=== PATIENT | male | born 1945 | race Caucasian/White ===

== ENCOUNTER 2016-05-09 17:42 | Inpatient (IN) | payer MEDICARE, BC ==
[~2016-05-09] VITALS: Ht 177.8 cm; Wt 178.7 kg
[~2016-05-09 17:42] MED LIST: ASPI325T4 PO; ATOR20TA58; BUPR150T11; CARV25TA2; CHOL10003 PO; CLIN300C86 PO; DIPH50CA PO; FLUT9.9S NS; FURO20TA3; GABA-585 PO; GABA-586 PO; GABA100C6; HYDR-2868; HYDR-2868 PO; INSU100I13 SQ; INSU100I17 SQ; LACT1CAP21 PO; LISI40TA; NYST15PO2 TP; PANT40TA5; SENN1TAB5 PO; VENL150C6; [UNRECOGNIZED DRUG - CODE] PO; [UNRECOGNIZED DRUG - CODE] TP
--- NOTE | 2016-05-09 18:28 | PHYS DOC ---
Past Medical History Past Medical History: Diabetes-Type II, Hypertension, Renal Failure Additional Past Medical Histor: morbid obesity Past Surgical History: Other Additional Past Surgical Histo: LEFT partial foot amputation, SHOULDER SURGERY Alcohol Use: None Drug Use: None Adult General Chief Complaint Chief Complaint: LOWER EXT PAIN HPI HPI Patient is a 70 year old female who presents with right leg pain. Patient reports for the past 3 days he has been having increased pain in his right lower extremity; the pain is mainly in his knee, but goes into his calf and up into his thigh. This is gone bad enough he is unable to bear weight. No trauma or other acutely inciting event. He has tried oxycodone and gabapentin at home with insufficient relief. He says he was seen at for the same on Friday, was discharged home. He is unsure what the diagnosis was. No other acute complaints. Review of Systems Review of Systems Constitutional: Denies fever or chills Eyes: Denies change in visual acuity or eye pain HENT: Denies nasal congestion or sore throat Respiratory: Denies cough or shortness of breath Cardiovascular: Denies chest pain GI: Denies abdominal pain, nausea, vomiting, bloody stools or diarrhea : Denies dysuria or hematuria Musculoskeletal: RLE pain. Chronic back pain, unchanged from baseline Integument: Denies rash or skin lesions Neurologic: Denies headache, focal weakness or sensory changes Current Medications Current Medications Current Medications Medications (Trade) Dose Ordered Sig/Beatrice Start Time Stop Time Status Last Admin Dose Admin Oxycodone/ Acetaminophen (Percocet 5/325) 2 tab 1X ONCE 05/09/16 18:30 05/09/16 18:33 DC 05/09/16 18:30 2 TAB Allergies Allergies Allergies Coded Allergies Type Severity Reaction Last Updated Verified cefuroxime Allergy Unknown UNKNOWN 10/25/15 Yes piperacillin Adverse Reaction Intermediate RASH 10/25/15 Yes tazobactam Adverse Reaction Intermediate RASH 10/25/15 Yes zolpidem Adverse Reaction Intermediate HALLUCINATIONS 10/25/15 Yes glipizide Adverse Reaction Mild SENSITIVITY TO SUN 10/25/15 Yes Uncoded Allergies Type Severity Reaction Last Updated Verified DUST Allergy Mild SNEEZING 10/25/15 Physical Exam Physical Exam Constitutional: Well developed, well nourished, no acute distress, non-toxic appearance HENT: Normocephalic, atraumatic, bilateral external ears normal Eyes: EOMI, conjunctiva normal, no discharge Neck: Normal range of motion, no stridor Cardiovascular: Heart rate normal, regular rhythm, no murmur Lungs & Thorax: Bilateral breath sounds clear to auscultation Abdomen: Bowel sounds normal, soft, non-distended, no TTP Skin: Warm, dry, no erythema, no rash Extremities: BLE with chronic sores; L partial foot amputation; R knee generally TTP, R calf TTP as well; no significant swelling noted; strong DP pulse noted with doppler; motor function fully preserved Neurologic: Alert and oriented X 3, no gross deficits noted Current Patient Data Vital Signs Vital Signs Date Time Temp Pulse Resp B/P Pulse Ox O2 Delivery O2 Flow Rate FiO2 05/09/16 20:17 93 133/57 95 Room Air 05/09/16 19:01 24 05/09/16 17:54 99.1 99.1 Lab Values Laboratory Tests Test 05/09/16 20:39 Glucose (Fingerstick) 176mg/dL (70-99) H EKG EKG [] Radiology/Procedures Radiology/Procedures X-ray R knee (my read): Marked degenerative changes. No acute abnormality. RLE US: IMPRESSION Negative study. Course & Med Decision Making Course & Med Decision Making Pertinent Labs and Imaging studies reviewed. (See chart for details) Patient is 62-year-old male who presents with right lower extremity pain. Possibly simply osteoarthritis of right knee. Will check x-ray of right knee as well as right lower extremity ultrasound to evaluate. Oral pain medication ordered for patient. Imaging results as above. Discussed results with patient and his . My concern is patient is unable to ambulate, and his is unable to care for him at home. Discussed with Dr. Calderon, will admit under his care to observation status for further evaluation and treatment. Dragon Disclaimer Dragon Disclaimer This electronic medical record was generated, in whole or in part, using a voice recognition dictation system. Departure Departure Impression: Primary Impression: Acute pain of right lower extremity Additional Impression: Unable to ambulate Disposition: ADMITTED INPATIENT Admitting Physician: Marcello Calderon Condition: STABLE Referrals: MARCIAL MEJIA MD (PCP) Problem Qualifiers JOSE MAIRA GASCA MD May 09, 2016 18:28
[2016-05-09] MEDS ORDERED: OXYCODONE/APAP 5/325 TABLET. PO ONE (18:30)
--- NOTE | 2016-05-09 19:53 | RAD ---
PROCEDURE Right lower extremity venous duplex study 05/09/2016 HISTORY Right leg pain for 4 days. TECHNIQUE Using a combination of real-time ultrasound imaging and color flow and pulse Doppler imaging techniques along with graded compression and augmentation, duplex evaluation of the major deep venous structures right lower extremity was performed. Multiple images were obtained. FINDINGS There is no sonographic evidence of deep venous thrombosis involving the visualized deep venous structures of the right lower extremity. IMPRESSION Negative study. Electronically signed by: Ger Crespo MD (May 09, 2016 19:51:52)
[2016-05-09] MEDS ORDERED: ACETAMINOPHEN 325 MG TABLET. PO PRN (21:45)
[2016-05-09] MEDS ORDERED: ONDANSETRON PF 4 MG/2 ML VIAL. IV PRN (21:45)
[2016-05-09] MEDS ORDERED: OXYCODONE IR 5 MG TABLET. PO PRN (21:45)
[2016-05-09] MEDS ORDERED: DEXTROSE 50% 25 GM / 50ML DISP.SYRIN. IV PRN (21:45)
[2016-05-09 22:50] VITALS: BP 175/66
[2016-05-09] MEDS ORDERED: DIPHENHYDRAMINE HCL 25 MG CAPSULE PO ONE (23:45)
[2016-05-09] MEDS ORDERED: INSU100I17 SQ (23:46)
--- NOTE | 2016-05-10 01:54 | ACF ---
Admission Forms Criteria PAIN MANAGEMENT [facility] Clinical Indications for Admission to Inpatient Care (Place 'X' for any and all applicable criteria): Hospital admission is needed for appropriate care of the patient because of ANY ONE of the following are present (1)(2)(3)(4)(5): [ ]I. Severe pain requiring acute inpatient management as indicated by ALL of the following (2)(5)(10): [ ]a) Continuous or frequent (eg, every 2 to 4 hours) parenteral analgesics required [A] [ ]b) Necessity (ie, alternative approaches not effective) for analgesic regimen that can only be performed or initiated in inpatient setting [X]II. Pain causing debilitation to the point of inability to function or be supported at any other level of care [ ]III. Severe side effects from pain medications as indicated by ANY ONE of the following (12)(13)(14)(15): [ ]a) Uncontrollable seizures [ ]b) Cardiac arrhythmias [ ]c) Severe volume depletion [ ]d) Vomiting that is uncontrollable at any other level of care [ ]e) Altered mental status (Campo coma scale score less than 13) [ ]f) Obstipation with inadequate GI function to maintain nutrition [ ]g) Dehydration that is severe or persistent The original [employer] content created by [employer] has been revised. The portions of the content which have been revised are identified through the use of italic text or in bold, and [employer] has neither reviewed nor approved the modified material. All other unmodified content is copyright [employer]. Please see references footnoted in the original [employer] edition 2016 Admission Criteria Met?: Yes MELISSA NGO May 10, 2016 01:54
[2016-05-10] MEDS ORDERED: hydrALAZINE 20 MG/ML VIAL. IVP PRN (02:00)
[2016-05-10 03:00] VITALS: BP 165/54
[2016-05-10 07:20] VITALS: BP 139/58
[2016-05-10] MEDS: INSULIN ASPART 300 UNITS/3 ML INSULN.PEN SQ SCH ×4 (08:27→17:10)
--- NOTE | 2016-05-10 08:47 | RAD ---
Exam performed: 3 views right knee. History: Nontraumatic right knee pain for 3 to 4 days. Date of service: 05/09/16. Comparison: None available Findings: Severe narrowing of medial and lateral tibiofemoral as well as patellofemoral joint with diffuse osteophytic spurring. No acute fracture or dislocation. There is a small joint effusion. Atheromatous vascular calcification. Impression: Advanced degenerative arthrosis involving the joint without acute findings. No acute bony abnormality seen.
[2016-05-10] MEDS ORDERED: PNEUMOC CONJ VACC 23-VALENT 0.5 ML VIAL. VAX IM ONE (09:00)
--- NOTE | 2016-05-10 09:35 | PDOC1 ---
History and Physical Past Medical History Cardiovascular: CAD, CHF, HTN Pulmonary: No pertinent hx Renal/: Chronic renal insuff Endocrine: Diabetes Family History Family History: No Significant, Hypertension Social History Smoke: No ALCOHOL: none Drugs: None Current Problem List Problem List Problems Medical Problems: (1) Acute pain of right lower extremity Status: Acute (2) Acute pain of right lower extremity Status: Acute (3) Unable to ambulate Status: Acute (4) Unable to ambulate Status: Acute Current Medications Current Medications Current Medications Medications (Trade) Dose Ordered Sig/Beatrice Start Time Stop Time Status Last Admin Dose Admin Acetaminophen (Tylenol) 650 mg PRN Q4HRS PRN 05/09/16 21:45 05/10/16 21:44 Dextrose 12.5 gm PRN Q15MIN PRN 05/09/16 21:45 Diphenhydramine HCl (Benadryl) 25 mg 1X ONCE 05/09/16 23:45 05/09/16 23:46 DC 05/09/16 23:38 25 MG Hydralazine HCl (Apresoline) 10 mg PRN Q4HRS PRN 05/10/16 02:00 Insulin Aspart (Novolog) 0-7 UNITS TIDWMEALS 05/10/16 08:00 05/10/16 08:27 3 UNITS Ondansetron HCl (Zofran) 4 mg PRN Q8HRS PRN 05/09/16 21:45 05/10/16 21:44 Oxycodone HCl (Roxicodone) 10 mg PRN Q4HRS PRN 05/09/16 21:45 Oxycodone/ Acetaminophen (Percocet 5/325) 2 tab 1X ONCE 05/09/16 18:30 05/09/16 18:33 DC 05/09/16 18:30 2 TAB Pneumococcal Polyvalent Vaccine (Pneumovax 23) 0.5 ml ONCE ONCE 05/10/16 09:00 05/10/16 09:01 DC 05/10/16 08:13 0.5 ML Allergies Allergies Allergies Coded Allergies Type Severity Reaction Last Updated Verified cefuroxime Allergy Unknown UNKNOWN 10/25/15 Yes piperacillin Adverse Reaction Intermediate RASH 10/25/15 Yes tazobactam Adverse Reaction Intermediate RASH 10/25/15 Yes zolpidem Adverse Reaction Intermediate HALLUCINATIONS 10/25/15 Yes glipizide Adverse Reaction Mild SENSITIVITY TO SUN 10/25/15 Yes Uncoded Allergies Type Severity Reaction Last Updated Verified DUST Allergy Mild SNEEZING 10/25/15 ROS Review of System CONSTITUTIONAL: No fever or chills EYES: No recent changes SKIN: excoriation in b/l LE, Rash in LE CARDIOVASCULAR: No chest pain, syncope, palpitations, or edema RESPIRATORY: No SOB or cough GASTROINTESTINAL: No nausea, vomiting or abdominal pain NEUROLOGICAL: No headaches or weakness ENDOCRINE: No cold or heat intolerance GENITOURINARY: No urgency or frequency of urination MUSCULOSKELETAL: Right knee pain LYMPHATICS: No enlarged lymph nodes PSYCHIATRIC: No anxiety or depression Physical Exam Physical Exam GEN.: No apparent distress. Alert and oriented. HEENT: Head is normocephalic, atraumatic NECK: Supple. LUNGS: Clear to auscultation. HEART: RRR, S1, S2 present. Peripheral pulses intact ABDOMEN: Soft, nontender. Positive bowel sounds. EXTREMITIES: Without any cyanosis. NEUROLOGIC: Normal speech, normal tone PSYCHIATRIC: Normal affect, normal mood. SKIN: No ulcerations Vitals Vitals Vital Signs Date Time Temp Pulse Resp B/P Pulse Ox O2 Delivery O2 Flow Rate FiO2 05/10/16 07:20 98.4 102 18 139/58 96 Room Air 98.4 Labs Labs Laboratory Tests Test 05/09/16 20:39 05/10/16 07:19 Glucose (Fingerstick) 176mg/dL (70-99) 170mg/dL (70-99) Laboratory Tests Test 05/09/16 20:39 05/10/16 07:19 Glucose (Fingerstick) 176mg/dL (70-99) 170mg/dL (70-99) VTE Prophylaxis Ordered VTE Prophylaxis Devices: Yes VTE Pharmacological Prophylaxi: No DAMARI NEWMAN MD May 10, 2016 09:35
[2016-05-10] MEDS ORDERED: methylPREDNISolone ACETATE 80 MG/ML VIAL. IM ONE (10:30)
[2016-05-10] MEDS ORDERED: BUPIVACAINE MPF 0.25% 10 ML VIAL. IJ ONE (10:30)
[2016-05-10 10:50] VITALS: BP 185/57
[2016-05-10] MEDS: BISACODYL 5 MG TABLET.DR. PO SCH (11:08)
[2016-05-10] MEDS: SENNOSIDES/DOCUSATE 8.6/50MG TABLET. PO SCH ×2 (11:08→21:23)
[2016-05-10 11:48] LABS: BASO % 1 % (0-3); EOS % 3 % (0-3); HEMATOCRIT 29.3 % (39.0-53.0); HEMOGLOBIN 9.9 g/dL (13.0-17.5); LYMPH # 0.9 x10^3/uL (1.0-4.8); LYMPH % 10 % (24-48); MEAN CORPUSCULAR HEMOGLOBIN 29 pg (25-35); MEAN CORPUSCULAR HGB CONC 34 g/dL (31-37); MEAN CORPUSCULAR VOLUME 87 fL (79-100); MONO % 14 % (0-9); NEUT % 72 % (31-73); PLATELET COUNT 247 x10^3/uL (140-400); RED BLOOD COUNT 3.37 x10^6/uL (4.30-5.70); WHITE BLOOD COUNT 8.7 x10^3/uL (4.0-11.0)
--- NOTE | 2016-05-10 11:56 | PDOC ---
ORTHO PROGRESS NOTES Vitals Vital Signs Date Time Temp Pulse Resp B/P Pulse Ox O2 Delivery O2 Flow Rate FiO2 05/10/16 10:50 97.9 109 18 185/57 94 Room Air 97.9 Labs Laboratory Tests Test 05/09/16 20:39 05/10/16 07:19 05/10/16 10:54 05/10/16 11:35 Glucose (Fingerstick) 176mg/dL (70-99) 170mg/dL (70-99) 184mg/dL (70-99) White Blood Count 8.7x10^3/uL (4.0-11.0) Red Blood Count 3.37x10^6/uL (4.30-5.70) Hemoglobin 9.9g/dL (13.0-17.5) Hematocrit 29.3% (39.0-53.0) Mean Corpuscular Volume 87fL (79-100) Mean Corpuscular Hemoglobin 29pg (25-35) Mean Corpuscular Hemoglobin Concent 34g/dL (31-37) Red Cell Distribution Width 14.0% (11.5-14.5) Platelet Count 247x10^3/uL (140-400) Neutrophils (%) (Auto) 72% (31-73) Lymphocytes (%) (Auto) 10% (24-48) Monocytes (%) (Auto) 14% (0-9) Eosinophils (%) (Auto) 3% (0-3) Basophils (%) (Auto) 1% (0-3) Neutrophils # (Auto) 6.3x10^3uL (1.8-7.7) Lymphocytes # (Auto) 0.9x10^3/uL (1.0-4.8) Monocytes # (Auto) 1.2x10^3/uL (0.0-1.1) Eosinophils # (Auto) 0.2x10^3/uL (0.0-0.7) Basophils # (Auto) 0.0x10^3/uL (0.0-0.2) Laboratory Tests Test 05/09/16 20:39 05/10/16 07:19 05/10/16 10:54 05/10/16 11:35 Glucose (Fingerstick) 176mg/dL (70-99) 170mg/dL (70-99) 184mg/dL (70-99) White Blood Count 8.7x10^3/uL (4.0-11.0) Red Blood Count 3.37x10^6/uL (4.30-5.70) Hemoglobin 9.9g/dL (13.0-17.5) Hematocrit 29.3% (39.0-53.0) Mean Corpuscular Volume 87fL (79-100) Mean Corpuscular Hemoglobin 29pg (25-35) Mean Corpuscular Hemoglobin Concent 34g/dL (31-37) Red Cell Distribution Width 14.0% (11.5-14.5) Platelet Count 247x10^3/uL (140-400) Neutrophils (%) (Auto) 72% (31-73) Lymphocytes (%) (Auto) 10% (24-48) Monocytes (%) (Auto) 14% (0-9) Eosinophils (%) (Auto) 3% (0-3) Basophils (%) (Auto) 1% (0-3) Neutrophils # (Auto) 6.3x10^3uL (1.8-7.7) Lymphocytes # (Auto) 0.9x10^3/uL (1.0-4.8) Monocytes # (Auto) 1.2x10^3/uL (0.0-1.1) Eosinophils # (Auto) 0.2x10^3/uL (0.0-0.7) Basophils # (Auto) 0.0x10^3/uL (0.0-0.2) Assessment and Plan note dictated agreee with Injection f/u prn will sign off ZARIA MAO II, MD May 10, 2016 11:56
[2016-05-10 12:03] LABS: CREATININE 1.9 mg/dL (0.7-1.3); GFR 35.4; POTASSIUM 4.8 mmol/L (3.5-5.1)
[2016-05-10] MEDS ORDERED: DIPHENHYDRAMINE HCL 25 MG CAPSULE PO PRN (14:15)
--- NOTE | 2016-05-10 14:17 | RAD ---
Exam performed: X-ray bilateral hips and bilateral knees standing History: Stiffness in the left. Bilateral knee pain. Date of service: 05/10/16. Comparison: None available Findings: Single view pelvis and frog leg lateral view bilateral hips and single AP standing view bilateral knees are obtained. Mild narrowing of the left hip joint is noted. The right hip joint appears preserved. There is no acute fracture or dislocation. No soft tissue foreign body seen. Incidental pelvic phleboliths. There is severe narrowing of the right medial tibiofemoral joint. Mild narrowing of the lateral right tibiofemoral joint is noted. There is minimal narrowing of the medial right tibiofemoral joint. There is no acute fracture or dislocation. No soft tissue swelling or foreign body seen. Impression: Early degenerative changes involving the left hip joint. No acute abnormality seen. Advanced degenerative changes involving the right knee joint with early degenerative arthrosis left knee.
[2016-05-10 14:47] VITALS: BP 171/71
[2016-05-10] MEDS: LISINOPRIL 40 MG TABLET. PO SCH (14:57)
[2016-05-10] MEDS: HYDRALAZINE 25 MG TABLET PO SCH ×2 (14:58→21:23)
[2016-05-10] MEDS: ASPIRIN 325 MG TABLET PO SCH (14:58)
[2016-05-10] MEDS: GABAPENTIN 100 MG CAPSULE. PO SCH (14:58)
[2016-05-10] MEDS: ATORVASTATIN CALCIUM 20 MG TABLET PO SCH (14:58)
[2016-05-10] MEDS: FUROSEMIDE 40 MG TABLET PO SCH (14:59)
[2016-05-10] MEDS: buPROPion SR 150 MG TABLET.SA PO SCH ×2 (14:59→21:22)
[2016-05-10] MEDS: CHOLECALCIFEROL (VITAMIN D3) 1,000 UNIT TABLET PO SCH (14:59)
[2016-05-10] MEDS: PANTOPRAZOLE 40 MG TABLET. PO SCH (14:59)
[2016-05-10] MEDS: NYSTATIN TOPICAL POWDER 15GM BOTTLE. TP SCH (15:01)
[2016-05-10] MEDS: ZINC OXIDE 20% TOPICAL OINTMENT 28GM TUBE. TP SCH ×2 (15:01→21:23)
[2016-05-10] MEDS: FLUTICASONE 50MCG/NASAL SPRAY 16GM BOTTLE. NS SCH (15:01)
--- NOTE | 2016-05-10 15:38 | PDOC ---
SUBJECTIVE Subjective severe itching elbows and knees (not scalp, buttocks, no blisters). chronic hyperkeratotic lesions lower legs (not related to current itchy problem) OBJECTIVE Vital Signs Vital Signs Date Time Temp Pulse Resp B/P Pulse Ox O2 Delivery O2 Flow Rate FiO2 05/10/16 14:58 104 171/71 05/10/16 14:57 104 171/71 05/10/16 12:23 109 185/57 05/10/16 10:50 97.9 109 18 185/57 94 Room Air 97.9 05/10/16 08:00 Room Air 05/10/16 07:20 98.4 102 18 139/58 96 Room Air 98.4 05/10/16 03:00 97.7 97 16 165/54 93 Room Air 97.7 05/10/16 00:06 Room Air 05/09/16 22:50 97.9 98 16 175/66 100 Room Air 97.9 05/09/16 22:23 95 156/74 98 Room Air 05/09/16 20:17 93 133/57 95 Room Air 05/09/16 19:47 91 155/67 97 Room Air 05/09/16 19:17 89 132/60 98 Room Air 05/09/16 19:01 90 24 148/60 97 05/09/16 18:30 12 05/09/16 17:54 99.1 93 20 169/67 93 Room Air 99.1 I & O Intake and Output 05/10/16 07:00 Intake Total 0 ml Output Total 525 ml Balance -525 ml Intake Oral 0 ml Output Urine Total 525 ml PHYSICAL EXAM Physical Exam status post partial left foot amputation. excoriations knees and elbows (left elbow, erosion from rubbing). Chronic skin changes lower legs (unrelated to current complaint) ASSESSMENT/PLAN Assessment/Plan Pruritus (severe) especially elbows and knees, no primary lesions. Distribution may be suggestive of dermatitis herpetiformis but no blisters evident. The gold standard for this diagnosis is skin biopsy for direct immunofluorescence. A "poor man's test" is several days of oral dapsone (100 mg a day for a few days ) Lab tests include bloodword for IgA tissue, tissue transaminase and IgA epidermal tissue transaminase. Topical steroids do not typically work well. I will do a biopsy for DIF today, Problems: COMMENT Lab Laboratory Tests Test 05/09/16 20:39 3/3/17 07:19 05/10/16 10:54 05/10/16 11:35 Glucose (Fingerstick) 176mg/dL (70-99) 170mg/dL (70-99) 184mg/dL (70-99) White Blood Count 8.7x10^3/uL (4.0-11.0) Red Blood Count 3.37x10^6/uL (4.30-5.70) Hemoglobin 9.9g/dL (13.0-17.5) Hematocrit 29.3% (39.0-53.0) Mean Corpuscular Volume 87fL (79-100) Mean Corpuscular Hemoglobin 29pg (25-35) Mean Corpuscular Hemoglobin Concent 34g/dL (31-37) Red Cell Distribution Width 14.0% (11.5-14.5) Platelet Count 247x10^3/uL (140-400) Neutrophils (%) (Auto) 72% (31-73) Lymphocytes (%) (Auto) 10% (24-48) Monocytes (%) (Auto) 14% (0-9) Eosinophils (%) (Auto) 3% (0-3) Basophils (%) (Auto) 1% (0-3) Neutrophils # (Auto) 6.3x10^3uL (1.8-7.7) Lymphocytes # (Auto) 0.9x10^3/uL (1.0-4.8) Monocytes # (Auto) 1.2x10^3/uL (0.0-1.1) Eosinophils # (Auto) 0.2x10^3/uL (0.0-0.7) Basophils # (Auto) 0.0x10^3/uL (0.0-0.2) Erythrocyte Sedimentation Rate 140 (0-15) Sodium Level 140mmol/L (136-145) Potassium Level 4.8mmol/L (3.5-5.1) Chloride Level 104mmol/L (98-107) Carbon Dioxide Level 25mmol/L (21-32) Anion Gap 11 (6-14) Blood Urea Nitrogen 53mg/dL (8-26) Creatinine 1.9mg/dL (0.7-1.3) Estimated GFR (Cockcroft-Gault) 35.4 Glucose Level 213mg/dL (70-99) Calcium Level 10.0mg/dL (8.5-10.1) VAIBHAV RIOS MD May 10, 2016 15:38
--- NOTE | 2016-05-10 16:47 | RAD ---
Chest, 2 views, 05/10/2016: History: Fever Comparison is made to a study from 10/24/2015. The heart size and pulmonary vascularity are normal. There is an unchanged small nodule in the right upper lobe which is probably a granuloma. No acute infiltrates are seen. There is no evidence of pleural fluid. Moderate spurring is present in the spine. IMPRESSION: No acute cardiopulmonary abnormality is detected.
[2016-05-10] MEDS ORDERED: INSULIN ASPART 300 UNITS/3 ML INSULN.PEN SQ SCH (17:00)
[2016-05-10] MEDS: CARVEDILOL 12.5 MG TABLET PO SCH (17:03)
[2016-05-10] MEDS: LACTOBACILLUS ACIDOPH & BULGAR 1 TABLET. PO SCH (17:03)
[2016-05-10] MEDS: IRON POLYSACCHARIDE COMPLEX 150 MG CAPSULE PO SCH (18:09)
[2016-05-10 19:00] VITALS: BP 144/52
[2016-05-10] MEDS ORDERED: SENNOSIDES/DOCUSATE 8.6/50MG TABLET. PO SCH (21:00)
[2016-05-10] MEDS: ENOXAPARIN ** NOTE DOSE ** SYRINGE SQ SCH (21:23)
--- NOTE | 2016-05-10 21:24 | OP ---
DATE OF SURGERY: DESCRIPTION OF PROCEDURE: After informed signed consent, prep Betadine. Local 1% lidocaine with epinephrine. 3 mm punch biopsy, left knee placed in Alexandro's solution for direct immunofluorescence. Drysol hemostasis. Antibiotic ointment and Band-Aid. Orders written. VAIBHAV RIOS MD DR: CONCHITA/domitila JOB#: [id number] / [id number]
[2016-05-10] MEDS: INSULIN DETEMIR 300 UNITS/3 ML INSULN.PEN. SQ SCH (21:26)
[2016-05-10] MEDS: GABAPENTIN 300 MG CAPSULE. PO SCH (21:28)
[2016-05-10 23:00] VITALS: BP 129/55
--- NOTE | 2016-05-11 01:38 | CONS ---
DATE OF CONSULTATION: 05/10/2016 LOCATION: He is in room 208. ATTENDING PHYSICIAN: Dr. Calderon. REASON FOR CONSULTATION: The patient was seen at the request of Dr. Calderon for rehab evaluation. HISTORY OF PRESENT ILLNESS: This is a 70-year-old right-handed male with diabetes mellitus type 2 with associated peripheral vascular disease status post transmetatarsal amputation of the left foot several years ago, also chronic renal insufficiency, hypertension, morbid obesity, having severe pain in his right knee for about 3 days prior to the hospitalization. He denies any recent fall, but he is having difficulty to weightbear on his right foot even before the right knee pain caused him difficulty to get up and walk. He does not do that much physical activity. He usually walks using a cane. The patient also admits some lower back pain, chronic, and also stiffness in his hands. He has been taking oxycodone and gabapentin without any sufficient help. He was seen at on 05/07/2016 and was sent home. The patient is not sure about any recent fall. ALLERGIES: HE IS KNOWN ALLERGIC TO DUST, CEFUROXIME, GLIPIZIDE, PIPERACILLIN/TAZOBACTAM, AND AMBIEN. SOCIAL HISTORY: The patient lives with his in a [place], [place] home, had two steps plus basement. He does not usually go to the basement. IMAGING: The patient had x-ray of the right knee taken in the Emergency Room, which revealed severe narrowing of the medial and lateral tibiofemoral as well as patellofemoral joint with a diffuse osteophytic spurring and a small joint effusion. Atheromatous vascular calcification was noted. The patient had Doppler studies of his right lower extremity, which was negative for deep vein thrombosis. PHYSICAL EXAMINATION: Today revealed a middle-aged male. He is alert, oriented to time, place, person and circumstance, and follows commands appropriately. He is in no acute distress. The patient is obese. He had 4+/5 grade muscle strength in his all 4 extremities. Deep tendon reflexes are decreased in the upper extremities and absent at both knees and ankles. He had decreased touch and pinprick sensation over a [id number] distribution. He had multiple skin abrasions and lesions all over his body, more so in the lower extremities with some evidence of chronic venous insufficiency with discoloration of distal parts of both legs. The patient had severe pain on attempted range of motion of right knee. No obvious knee joint effusion was noted. He had a crepitus on range of motion of both knee joints. Also he had some stiffness of his left hip joint, mainly rotational movements. He had localized tenderness to palpation over sacroiliac joint area and straight leg raising test is negative bilaterally. He is independent with bed mobility. He had a left partial foot amputation stump. He had dressing to it over medial aspect of the stump. I have not tested his transfers or ambulation skills at this time. ASSESSMENT: Mobility and self-care limitation in a patient with a painful degenerative joint disease of right knee and also degenerative joint disease of left knee without much pain, and to rule out degenerative joint disease of left hip, chronic lower back pain from degenerative disk disease of lumbar vertebrae without any clinical evidence of ongoing lumbar radiculopathy, also diabetes mellitus with peripheral neuropathy, peripheral vascular disease status post partial left foot amputation done in the past, multiple skin lesions in both lower extremities, chronic venous insufficiency, morbid obesity, and diabetic peripheral neuropathy. RECOMMENDATIONS: At his request, I have injected his right knee under aseptic skin technique after skin preparation using alcohol swab with Marcaine and Depo-Medrol solution, and he tolerated the procedure satisfactorily without any side effects to try to get him right knee support and also to provide him with built up shoe to his left foot partial amputation stump, and he probably needs a roller walker to walk, to get him one unless he had at home when medically stable, and surgeon is willing to operate on him. Despite his heaviness, he is a candidate for a right total knee arthroplasty. Dr. Calderon, appreciate asking me to participate in care of this interesting patient. I will be glad to follow him with you as needed for his rehabilitation. FAUSTO METCALF MD DR: AMBER/domitila JOB#: [id number] / [id number]
[2016-05-11 03:00] VITALS: BP 120/63
--- NOTE | 2016-05-11 04:58 | CONS ---
DATE OF CONSULTATION: 05/10/2016 REFERRING PROVIDER: Marcello Calderon MD CONSULTING PROVIDER: Myself. REASON FOR CONSULTATION: Right knee pain and inability to ambulate. CHIEF COMPLAINT: Right lower extremity pain. HISTORY OF PRESENT ILLNESS: The patient is a very pleasant 70-year-old male who presented with worsening right knee and leg pain. He was seen in an outside institution for something similar several days ago. He tells me the pain worsened. It hurts anytime he tries to move his knee. He feels the pain is centered on his knee, but radiates proximally and distally. He does have chronic knee pain. He recently was evaluated by Dr. Hinton this morning and received an intra-articular injection, which has helped his pain. ALLERGIES: CEFUROXIME, GLIPIZIDE, PIPERACILLIN TAZOBACTAM, ZOLPIDEM. PAST MEDICAL HISTORY: Type 2 diabetes, hypertension, renal failure, morbid obesity. PAST SURGICAL HISTORY: 1. Left transmetatarsal amputation. 2. Right shoulder surgery. REVIEW OF SYSTEMS: Twelve point review of systems negative except as per HPI. FAMILY HISTORY: Noncontributory. SOCIAL HISTORY: No alcohol or tobacco. PHYSICAL EXAMINATION: GENERAL: The patient is alert and oriented, no acute distress. Mood and affect are appropriate. He is examined in the hospital bed. HEENT: Head, normocephalic, atraumatic. Extraocular muscles are intact. CARDIOVASCULAR: Regular rate and rhythm. LUNGS: He does have edema in bilateral lower extremities. ABDOMEN: Obese and nontender. EXTREMITIES: Examination of left lower extremity reveals transmetatarsal amputation. Examination of bilateral lower extremities reveals chronic vascular changes and chronic small wounds of variant stages of healing throughout his lower extremities up to his thighs. Examination of his right knee reveals stable to varus and valgus, unable to assess for effusion secondary to body habitus. Range of motion is 10 degrees to 40 degrees comfortably. IMAGING: X-rays were interpreted by myself. Report was also reviewed. He has advanced degenerative changes present tricompartmentally. IMPRESSION: Right knee degenerative joint disease. PLAN: I do believe that a corticosteroid injection was appropriate. I did discuss with the patient that either Dr. Martins or myself could perform these in the future. I will be happy to see this gentleman clinic for injections. He can weightbear as tolerated. ZARIA MAO MD DR: Daryl JOB#: [id number] / [id number]
[2016-05-11 07:00] VITALS: BP 160/63
[2016-05-11] MEDS: CHOLECALCIFEROL (VITAMIN D3) 1,000 UNIT TABLET PO SCH (08:35)
[2016-05-11] MEDS: ASPIRIN 325 MG TABLET PO SCH (08:35)
[2016-05-11] MEDS: BISACODYL 5 MG TABLET.DR. PO SCH (08:35)
[2016-05-11] MEDS: LACTOBACILLUS ACIDOPH & BULGAR 1 TABLET. PO SCH ×2 (08:35→17:32)
[2016-05-11] MEDS: ENOXAPARIN ** NOTE DOSE ** SYRINGE SQ SCH ×2 (08:36→20:57)
[2016-05-11] MEDS: LISINOPRIL 40 MG TABLET. PO SCH (08:36)
[2016-05-11] MEDS: CARVEDILOL 12.5 MG TABLET PO SCH ×2 (08:36→17:32)
[2016-05-11] MEDS: FUROSEMIDE 40 MG TABLET PO SCH ×2 (08:37→15:42)
[2016-05-11] MEDS: ATORVASTATIN CALCIUM 20 MG TABLET PO SCH (08:37)
[2016-05-11] MEDS: IRON POLYSACCHARIDE COMPLEX 150 MG CAPSULE PO SCH (08:37)
[2016-05-11] MEDS: PANTOPRAZOLE 40 MG TABLET. PO SCH (08:37)
[2016-05-11] MEDS: SENNOSIDES/DOCUSATE 8.6/50MG TABLET. PO SCH ×2 (08:37→20:55)
[2016-05-11] MEDS: GABAPENTIN 100 MG CAPSULE. PO SCH ×2 (08:37→12:05)
[2016-05-11] MEDS: buPROPion SR 150 MG TABLET.SA PO SCH ×2 (08:37→20:56)
[2016-05-11] MEDS: NYSTATIN TOPICAL POWDER 15GM BOTTLE. TP SCH (08:38)
[2016-05-11] MEDS: FLUTICASONE 50MCG/NASAL SPRAY 16GM BOTTLE. NS SCH (08:38)
[2016-05-11] MEDS: ZINC OXIDE 20% TOPICAL OINTMENT 28GM TUBE. TP SCH ×2 (08:38→20:56)
[2016-05-11] MEDS: NEOMY/BACITR/POLYMYXIN OINT PACKET. TP SCH ×2 (08:38→21:10)
[2016-05-11] MEDS: HYDRALAZINE 25 MG TABLET PO SCH ×3 (08:38→20:55)
[2016-05-11] MEDS: INSULIN ASPART 300 UNITS/3 ML INSULN.PEN SQ SCH ×6 (08:40→17:37)
[2016-05-11] MEDS ORDERED: CHONDR SU A NA PO SCH (09:00)
[2016-05-11] MEDS ORDERED: [UNRECOGNIZED DRUG - OTHER] PO SCH (09:00)
[2016-05-11] MEDS ORDERED: GLUCOSAMINE HCL PO SCH (09:00)
[2016-05-11 09:38] LABS: HCO3 ABG 24 mmol/L (21-28); PCO2 ABG 43 mmHg (35-46); PH ABG 7.36 (7.35-7.45); PO2 ABG 112 mmHg (65-108); SAT O2 ABG 97 % (92-99)
--- NOTE | 2016-05-11 09:41 | PDOC ---
PROGRESS NOTES Subjective Subjective He feels better with right knee pain. Objective Objective Vital Signs Date Time Temp Pulse Resp B/P Pulse Ox O2 Delivery O2 Flow Rate FiO2 05/11/16 08:38 93 160/63 05/11/16 07:00 97.5 16 96 Room Air 97.5 Intake and Output 05/11/16 07:00 Intake Total 780 ml Output Total 850 ml Balance -70 ml Intake Oral 780 ml Output Urine Total 850 ml # Voids 2 # Bowel Movements 1 Physical Exam Physical Exam He is having trouble with sleep apnea and difficult to stay awake.He apparently did not use BIPAP last night and did not sleep any. 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 Assessment Assessment Problems Medical Problems: (1) Acute pain of right lower extremity Status: Acute (2) Acute pain of right lower extremity Status: Acute (3) Unable to ambulate Status: Acute (4) Unable to ambulate Status: Acute Plan Plan of Longterm when medically stable.He needs to wear knee brace only while up. Comment Review of Relevant I have reviewed the following items minnie (where applicable) has been applied. Labs Laboratory Tests Test 05/09/16 20:39 05/10/16 07:19 05/10/16 10:54 05/10/16 11:35 Glucose (Fingerstick) 176mg/dL (70-99) 170mg/dL (70-99) 184mg/dL (70-99) White Blood Count 8.7x10^3/uL (4.0-11.0) Red Blood Count 3.37x10^6/uL (4.30-5.70) Hemoglobin 9.9g/dL (13.0-17.5) Hematocrit 29.3% (39.0-53.0) Mean Corpuscular Volume 87fL (79-100) Mean Corpuscular Hemoglobin 29pg (25-35) Mean Corpuscular Hemoglobin Concent 34g/dL (31-37) Red Cell Distribution Width 14.0% (11.5-14.5) Platelet Count 247x10^3/uL (140-400) Neutrophils (%) (Auto) 72% (31-73) Lymphocytes (%) (Auto) 10% (24-48) Monocytes (%) (Auto) 14% (0-9) Eosinophils (%) (Auto) 3% (0-3) Basophils (%) (Auto) 1% (0-3) Neutrophils # (Auto) 6.3x10^3uL (1.8-7.7) Lymphocytes # (Auto) 0.9x10^3/uL (1.0-4.8) Monocytes # (Auto) 1.2x10^3/uL (0.0-1.1) Eosinophils # (Auto) 0.2x10^3/uL (0.0-0.7) Basophils # (Auto) 0.0x10^3/uL (0.0-0.2) Erythrocyte Sedimentation Rate 140 (0-15) Sodium Level 140mmol/L (136-145) Potassium Level 4.8mmol/L (3.5-5.1) Chloride Level 104mmol/L (98-107) Carbon Dioxide Level 25mmol/L (21-32) Anion Gap 11 (6-14) Blood Urea Nitrogen 53mg/dL (8-26) Creatinine 1.9mg/dL (0.7-1.3) Estimated GFR (Cockcroft-Gault) 35.4 Glucose Level 213mg/dL (70-99) Calcium Level 10.0mg/dL (8.5-10.1) Test 05/10/16 16:44 05/10/16 21:01 05/11/16 07:13 Glucose (Fingerstick) 234mg/dL (70-99) 182mg/dL (70-99) 173mg/dL (70-99) Laboratory Tests Test 05/10/16 10:54 05/10/16 11:35 05/10/16 16:44 05/10/16 21:01 Glucose (Fingerstick) 184mg/dL (70-99) 234mg/dL (70-99) 182mg/dL (70-99) White Blood Count 8.7x10^3/uL (4.0-11.0) Red Blood Count 3.37x10^6/uL (4.30-5.70) Hemoglobin 9.9g/dL (13.0-17.5) Hematocrit 29.3% (39.0-53.0) Mean Corpuscular Volume 87fL (79-100) Mean Corpuscular Hemoglobin 29pg (25-35) Mean Corpuscular Hemoglobin Concent 34g/dL (31-37) Red Cell Distribution Width 14.0% (11.5-14.5) Platelet Count 247x10^3/uL (140-400) Neutrophils (%) (Auto) 72% (31-73) Lymphocytes (%) (Auto) 10% (24-48) Monocytes (%) (Auto) 14% (0-9) Eosinophils (%) (Auto) 3% (0-3) Basophils (%) (Auto) 1% (0-3) Neutrophils # (Auto) 6.3x10^3uL (1.8-7.7) Lymphocytes # (Auto) 0.9x10^3/uL (1.0-4.8) Monocytes # (Auto) 1.2x10^3/uL (0.0-1.1) Eosinophils # (Auto) 0.2x10^3/uL (0.0-0.7) Basophils # (Auto) 0.0x10^3/uL (0.0-0.2) Erythrocyte Sedimentation Rate 140 (0-15) Sodium Level 140mmol/L (136-145) Potassium Level 4.8mmol/L (3.5-5.1) Chloride Level 104mmol/L (98-107) Carbon Dioxide Level 25mmol/L (21-32) Anion Gap 11 (6-14) Blood Urea Nitrogen 53mg/dL (8-26) Creatinine 1.9mg/dL (0.7-1.3) Estimated GFR (Cockcroft-Gault) 35.4 Glucose Level 213mg/dL (70-99) Calcium Level 10.0mg/dL (8.5-10.1) Test 05/11/16 07:13 Glucose (Fingerstick) 173mg/dL (70-99) Medications Current Medications Oxycodone/ Acetaminophen (Percocet 5/325) 2 tab 1X ONCE PO Last administered on 05/09/16t 18:30; Start 05/09/16 at 18:30; Stop 05/09/16 at 18:33; Status DC Ondansetron HCl (Zofran) 4 mg PRN Q8HRS PRN IV NAUSEA/VOMITING; Start 05/09/16 at 21:45; Stop 05/10/16 at 21:44; Status DC Acetaminophen (Tylenol) 650 mg PRN Q4HRS PRN PO FEVER; Start 05/09/16 at 21:45; Stop 05/10/16 at 21:44; Status DC Oxycodone HCl (Roxicodone) 10 mg PRN Q4HRS PRN PO SEVERE PAIN; Start 05/09/16 at 21:45 Insulin Aspart (Novolog) 0-7 UNITS TIDWMEALS SQ Last administered on 05/11/16 08:41; Start 05/10/16 at 08:00 Dextrose 12.5 gm PRN Q15MIN PRN IV SEE COMMENTS; Start 05/09/16 at 21:45 Diphenhydramine HCl (Benadryl) 25 mg 1X ONCE PO Last administered on 05/09/16 23:38; Start 05/09/16 at 23:45; Stop 05/09/16 at 23:46; Status DC Pneumococcal Polyvalent Vaccine (Pneumovax 23) 0.5 ml ONCE ONCE VAX IM Last administered on 05/10/16 08:13; Start 05/10/16 at 09:00; Stop 05/10/16 at 09:01; Status DC Hydralazine HCl (Apresoline) 10 mg PRN Q4HRS PRN IVP ELEVATED BP, SEE COMMENTS Last administered on 05/10/16 12:23; Start 05/10/16 at 02:00 Methylprednisolone Acetate (Depo-Medrol 80mg Vial) 80 mg 1X ONCE IM Last administered on 05/10/16 10:30; Start 05/10/16 at 10:30; Stop 05/10/16 at 10:31; Status DC Bupivacaine HCl (Sensorcaine-Mpf 0.25%) 10 ml 1X ONCE IJ Last administered on 05/10/16 10:30; Start 05/10/16 at 10:30; Stop 05/10/16 at 10:31; Status DC Bisacodyl (Dulcolax Tab) 10 mg DAILY PO Last administered on 05/11/16 08:35; Start 05/10/16 at 10:30 Senna/Docusate Sodium (Senna Plus) 1 tab BID PO Last administered on 05/11/16 08:37; Start 05/10/16 at 10:30 Aspirin (Jacquelin Aspirin) 325 mg DAILY PO Last administered on 05/11/16 08:35; Start 05/10/16 at 15:00 Atorvastatin Calcium (Lipitor) 20 mg DAILY PO Last administered on 05/11/16 08: 37; Start 05/10/16 at 15:00 Bupropion HCl (Wellbutrin Sr) 150 mg BID PO Last administered on 05/11/16 08:37 ; Start 05/10/16 at 15:00 Vitamin D (Vitamin D3) 2,000 unit DAILY PO Last administered on 05/11/16 08:35 ; Start 05/10/16 at 15:00 Furosemide (Lasix) 40 mg [id number] PO Last administered on 05/11/16 08:37; Start at 16:00 Gabapentin (Neurontin) 200 mg BIDWBKFT/AVE PO Last administered on 05/11/16 08: 37; Start 05/10/16 at 15:00 Gabapentin (Neurontin) 300 mg HS PO Last administered on 05/10/16 21:28; Start 05/10/16 at 21:00 Hydralazine HCl (Apresoline) 25 mg TID PO Last administered on 05/11/16 08:38; Start 05/10/16 at 14:00 Insulin Aspart (Novolog) 20 units TIDWMEALS SQ ; Start 05/10/16 at 17:00; Status Cancel Insulin Aspart (Novolog) 30 units TIDWMEALS SQ Last administered on 05/11/16 08 :40; Start 05/10/16 at 17:00 Lisinopril (Prinivil) 40 mg DAILY PO Last administered on 05/11/16 08:36; Start 05/10/16 at 15:00 Nystatin (Nystop) 1 ritu DAILY TP Last administered on 05/11/16 08:38; Start 05/10/16 at 15:00 Pantoprazole Sodium (Protonix) 40 mg DAILYAC PO Last administered on 05/11/16 08:37; Start 05/10/16 at 15:00 Senna/Docusate Sodium (Senna Plus) 1 tab BID PO ; Start 05/10/16 at 21:00; Status UNV Carvedilol (Coreg) 25 mg BIDWMEALS PO Last administered on 05/11/16 08:36; Start 05/10/16 at 17:00 Diphenhydramine HCl (Benadryl) 25 mg PRN Q6HRS PRN PO ALLERGIES Last administered on 05/10/16 21:28; Start 05/10/16 at 14:15 Fluticasone Propionate (Flonase) 2 spray DAILY NS Last administered on 08:38; Start 05/10/16 at 15:00 Non-Formulary Medication 2 each DAILY PO ; Start 05/11/16 at 09:00; Status UNV Insulin Detemir (Levemir) 45 units QHS SQ Last administered on 05/10/16 21:26; Start 05/10/16 at 21:00 Lactobacillus Acidophilus (Bacid, Asiya-Bid) 1 tab BIDWMEALS PO Last administered on 05/11/16 08:35; Start 05/10/16 at 17:00 Zinc Oxide 1 ritu BID TP Last administered on 05/11/16 08:38; Start 05/10/16 at 15:00 Enoxaparin Sodium (Lovenox 60mg Syringe) 60 mg Q12HR SQ Last administered on 08:36; Start 05/10/16 at 21:00 Polysaccharide Iron Complex (Niferex 150) 150 mg DAILY PO Last administered on 05/11/16 08:37; Start 05/10/16 at 18:00 Neomycin/ Polymyxin/ Bacitracin (Triple Antibiotic Ointment) 1 pkt BID TP Last administered on 05/11/16 08:38; Start 05/11/16 at 09:00 Active Scripts Active Reported Novolog Flexpen (Insulin Aspart) 100 Unit/1 Ml Insuln.pen 30 SQ TIDWMEALS Aspirin 325 Mg Tablet 0.5 Tab PO DAILY Senna-S Tablet (Sennosides/Docusate Sodium) 1 Each Tablet 1 Each PO BID Nyamyc (Nystatin) 15 Gm Powder 15 Gm TP DAILY Culturelle (Lactobacillus Rhamnosus Gg) 1 Each Capsule 1 Each PO BIDWMEALS Lantus Solostar (Insulin Glargine,Hum.rec.anlog) 100 Unit/1 Ml Insuln.pen 45 Unit SQ QHS Hydralazine Hcl 25 Mg Tablet 2 Tab PO TID Cvs Glucosamine-Chondr Tablet (Glucosamine Hcl/Chondr [place] A Na) 1 Each Tablet 2 Each PO DAILY Gabapentin 300 Mg Capsule 300 Mg PO HS Gabapentin 100 Mg Capsule 200 Mg PO BIDWBK/AVE Flonase Allergy Relief (Fluticasone Propionate) 9.9 Ml [place].susp 2 Sprays NS DAILY Elta Seal Moisture Barrier (Zinc Oxide) 114 Gm Cream..g. 114 Gm TP BID Diphenhydramine Hcl 50 Mg Capsule 25 Mg PO Q6HRS PRN Clindamycin Hcl 300 Mg Capsule 300 Mg PO QID Vitamin D3 (Cholecalciferol (Vitamin D3)) 1,000 Unit Tablet 2,000 Unit PO DAILY Atorvastatin Calcium 20 Mg Tablet DAILY Venlafaxine Hcl Er (Venlafaxine Hcl) 150 Mg Cap.er.24h DAILY Furosemide 20 Mg Tablet 40 Mg BID Lisinopril 40 Mg Tablet 40 DAILY Carvedilol 25 Mg Tablet 25 BID Pantoprazole Sodium 40 Mg Tablet.dr DAILY Bupropion Hcl Sr (Bupropion Hcl) 150 Mg Tablet.er 150 BID Vitals/I & O Vital Sign - Last 24 Hours 05/10/16 05/10/16 05/10/16 05/10/16 10:50 12:23 14:47 14:57 Temp 97.9 100.0 97.9 100.0 Pulse 109 109 104 104 Resp 18 18 B/P 185/57 185/57 171/71 171/71 Pulse Ox 94 96 O2 Delivery Room Air Room Air 05/10/16 05/10/16 05/10/16 05/10/16 14:58 17:03 19:00 21:20 Temp 97.9 97.9 Pulse 104 104 95 Resp 20 B/P 171/71 171/71 144/52 Pulse Ox 96 O2 Delivery Room Air Room Air 05/10/16 05/10/16 05/11/16 05/11/16 21:23 23:00 03:00 07:00 Temp 97.7 97.5 97.5 97.7 97.5 97.5 Pulse 95 81 77 93 Resp 20 20 16 B/P 144/52 129/55 120/63 160/63 Pulse Ox 95 93 96 O2 Delivery Room Air Room Air Room Air 05/11/16 05/11/16 05/11/16 08:36 08:36 08:38 Pulse 93 93 93 B/P 160/63 160/63 160/63 Intake and Output 305/10/16 05/11/16 15:00 23:00 07:00 Intake Total 480 ml 300 ml 0 ml Output Total 400 ml 450 ml Balance 80 ml 300 ml -450 ml FAUSTO METCALF MD May 11, 2016 09:41
[2016-05-11 09:44] LABS: FIO2 ABG 28
[2016-05-11 11:00] VITALS: BP 140/70
--- NOTE | 2016-05-11 12:06 | PDOC ---
PROGRESS NOTES Chief Complaint Chief Complaint - Acute pain in right lower extremity - S/p Trans Metatarsal left foot amputation - Diabetes - CAD - CHF - HTN History of Present Illness History of Present Illness Patient was sleeping in his bed, he suspected to have obstructive sleep apnea, no report of any acute events overnight, pt. was comfortable in his bed, plan of care discussed with Dr. Hinton, and RN. Vitals Vitals Vital Signs Date Time Temp Pulse Resp B/P Pulse Ox O2 Delivery O2 Flow Rate FiO2 05/11/16 11:00 98.1 76 24 140/70 97 Nasal Cannula 2.0 98.1 Physical Exam General: Alert, Oriented X3, Cooperative, No acute distress Lungs: Clear Abdomen: Soft, No tenderness Extremities: Other ( trans metatarsal amputation of left foot) Skin: Other (bruising in both lower extermities,) Labs LABS Laboratory Tests Test 05/10/16 16:44 05/10/16 21:01 05/11/16 07:13 05/11/16 09:19 Glucose (Fingerstick) 234mg/dL (70-99) 182mg/dL (70-99) 173mg/dL (70-99) O2 Saturation 97% (92-99) Arterial Blood pH 7.36 (7.35-7.45) Arterial Blood pCO2 at Patient Temp 43mmHg (35-46) Arterial Blood pO2 at Patient Temp 112mmHg (65-108) Arterial Blood HCO3 24mmol/L (21-28) Arterial Blood Base Excess -2mmol/L (-3-3) FiO2 28 Review of Systems Review of Systems Bruising in both lower extremities, tans metatarsal amputation of left foot, ortho brace on right lower extremity, afebrile, no CP, no SOB Assessment and Plan Assessmemt and Plan ASSESSMENT: - Acute pain in right lower extremity - S/p Trans Metatarsal left foot amputation - Diabetes - CAD - CHF - HTN PLAN: - Continue care per floor protocol - Pulmonary consult for suspected sleep apnea - ABG orded - Probable discharge tomorrow if subspecialities will give ok - Continue wound care - Continue prn pain medication - recheck labs in AM - appreciate subspecialities inputs and recommendations Problems Medical Problems: (1) Acute pain of right lower extremity Status: Acute (2) Acute pain of right lower extremity Status: Acute (3) Unable to ambulate Status: Acute (4) Unable to ambulate Status: Acute Problems: Comment Review of Relevant I have reviewed the following items minnie (where applicable) has been applied. Labs Laboratory Tests Test 05/09/16 20:39 05/10/16 07:19 05/10/16 10:54 05/10/16 11:35 Glucose (Fingerstick) 176mg/dL (70-99) 170mg/dL (70-99) 184mg/dL (70-99) White Blood Count 8.7x10^3/uL (4.0-11.0) Red Blood Count 3.37x10^6/uL (4.30-5.70) Hemoglobin 9.9g/dL (13.0-17.5) Hematocrit 29.3% (39.0-53.0) Mean Corpuscular Volume 87fL (79-100) Mean Corpuscular Hemoglobin 29pg (25-35) Mean Corpuscular Hemoglobin Concent 34g/dL (31-37) Red Cell Distribution Width 14.0% (11.5-14.5) Platelet Count 247x10^3/uL (140-400) Neutrophils (%) (Auto) 72% (31-73) Lymphocytes (%) (Auto) 10% (24-48) Monocytes (%) (Auto) 14% (0-9) Eosinophils (%) (Auto) 3% (0-3) Basophils (%) (Auto) 1% (0-3) Neutrophils # (Auto) 6.3x10^3uL (1.8-7.7) Lymphocytes # (Auto) 0.9x10^3/uL (1.0-4.8) Monocytes # (Auto) 1.2x10^3/uL (0.0-1.1) Eosinophils # (Auto) 0.2x10^3/uL (0.0-0.7) Basophils # (Auto) 0.0x10^3/uL (0.0-0.2) Erythrocyte Sedimentation Rate 140 (0-15) Sodium Level 140mmol/L (136-145) Potassium Level 4.8mmol/L (3.5-5.1) Chloride Level 104mmol/L (98-107) Carbon Dioxide Level 25mmol/L (21-32) Anion Gap 11 (6-14) Blood Urea Nitrogen 53mg/dL (8-26) Creatinine 1.9mg/dL (0.7-1.3) Estimated GFR (Cockcroft-Gault) 35.4 Glucose Level 213mg/dL (70-99) Calcium Level 10.0mg/dL (8.5-10.1) Test 05/10/16 16:44 05/10/16 21:01 05/11/16 07:13 05/11/16 09:19 Glucose (Fingerstick) 234mg/dL (70-99) 182mg/dL (70-99) 173mg/dL (70-99) O2 Saturation 97% (92-99) Arterial Blood pH 7.36 (7.35-7.45) Arterial Blood pCO2 at Patient Temp 43mmHg (35-46) Arterial Blood pO2 at Patient Temp 112mmHg (65-108) Arterial Blood HCO3 24mmol/L (21-28) Arterial Blood Base Excess -2mmol/L (-3-3) FiO2 28 Laboratory Tests Test 05/10/16 16:44 05/10/16 21:01 05/11/16 07:13 05/11/16 09:19 Glucose (Fingerstick) 234mg/dL (70-99) 182mg/dL (70-99) 173mg/dL (70-99) O2 Saturation 97% (92-99) Arterial Blood pH 7.36 (7.35-7.45) Arterial Blood pCO2 at Patient Temp 43mmHg (35-46) Arterial Blood pO2 at Patient Temp 112mmHg (65-108) Arterial Blood HCO3 24mmol/L (21-28) Arterial Blood Base Excess -2mmol/L (-3-3) FiO2 28 Medications Current Medications Oxycodone/ Acetaminophen (Percocet 5/325) 2 tab 1X ONCE PO Last administered on 05/09/16t 18:30; Start 05/09/16 at 18:30; Stop 05/09/16 at 18:33; Status DC Ondansetron HCl (Zofran) 4 mg PRN Q8HRS PRN IV NAUSEA/VOMITING; Start 05/09/16 at 21:45; Stop 05/10/16 at 21:44; Status DC Acetaminophen (Tylenol) 650 mg PRN Q4HRS PRN PO FEVER; Start 05/09/16 at 21:45; Stop 05/10/16 at 21:44; Status DC Oxycodone HCl (Roxicodone) 10 mg PRN Q4HRS PRN PO SEVERE PAIN; Start 05/09/16 at 21:45 Insulin Aspart (Novolog) 0-7 UNITS TIDWMEALS SQ Last administered on 05/11/16 08:41; Start 05/10/16 at 08:00 Dextrose 12.5 gm PRN Q15MIN PRN IV SEE COMMENTS; Start 05/09/16 at 21:45 Diphenhydramine HCl (Benadryl) 25 mg 1X ONCE PO Last administered on 05/09/16 23:38; Start 05/09/16 at 23:45; Stop 05/09/16 at 23:46; Status DC Pneumococcal Polyvalent Vaccine (Pneumovax 23) 0.5 ml ONCE ONCE VAX IM Last administered on 05/10/16 08:13; Start 05/10/16 at 09:00; Stop 05/10/16 at 09:01; Status DC Hydralazine HCl (Apresoline) 10 mg PRN Q4HRS PRN IVP ELEVATED BP, SEE COMMENTS Last administered on 05/10/16 12:23; Start 05/10/16 at 02:00 Methylprednisolone Acetate (Depo-Medrol 80mg Vial) 80 mg 1X ONCE IM Last administered on 05/10/16 10:30; Start 05/10/16 at 10:30; Stop 05/10/16 at 10:31; Status DC Bupivacaine HCl (Sensorcaine-Mpf 0.25%) 10 ml 1X ONCE IJ Last administered on 05/10/16 10:30; Start 05/10/16 at 10:30; Stop 05/10/16 at 10:31; Status DC Bisacodyl (Dulcolax Tab) 10 mg DAILY PO Last administered on 05/11/16 08:35; Start 05/10/16 at 10:30 Senna/Docusate Sodium (Senna Plus) 1 tab BID PO Last administered on 05/11/16 08:37; Start 05/10/16 at 10:30 Aspirin (Jacquelin Aspirin) 325 mg DAILY PO Last administered on 05/11/16 08:35; Start 05/10/16 at 15:00 Atorvastatin Calcium (Lipitor) 20 mg DAILY PO Last administered on 05/11/16 08: 37; Start 05/10/16 at 15:00 Bupropion HCl (Wellbutrin Sr) 150 mg BID PO Last administered on 05/11/16 08:37 ; Start 05/10/16 at 15:00 Vitamin D (Vitamin D3) 2,000 unit DAILY PO Last administered on 05/11/16 08:35 ; Start 05/10/16 at 15:00 Furosemide (Lasix) 40 mg BID94 PO Last administered on 05/11/16 08:37; Start at 16:00 Gabapentin (Neurontin) 200 mg BIDWBKFT/AVE PO Last administered on 05/11/16 08: 37; Start 05/10/16 at 15:00 Gabapentin (Neurontin) 300 mg HS PO Last administered on 05/10/16 21:28; Start 05/10/16 at 21:00 Hydralazine HCl (Apresoline) 25 mg TID PO Last administered on 05/11/16 08:38; Start 05/10/16 at 14:00 Insulin Aspart (Novolog) 20 units TIDWMEALS SQ ; Start 05/10/16 at 17:00; Status Cancel Insulin Aspart (Novolog) 30 units TIDWMEALS SQ Last administered on 05/11/16 08 :40; Start 05/10/16 at 17:00 Lisinopril (Prinivil) 40 mg DAILY PO Last administered on 05/11/16 08:36; Start 05/10/16 at 15:00 Nystatin (Nystop) 1 ritu DAILY TP Last administered on 05/11/16 08:38; Start 05/10/16 at 15:00 Pantoprazole Sodium (Protonix) 40 mg DAILYAC PO Last administered on 05/11/16 08:37; Start 05/10/16 at 15:00 Senna/Docusate Sodium (Senna Plus) 1 tab BID PO ; Start 05/10/16 at 21:00; Status UNV Carvedilol (Coreg) 25 mg BIDWMEALS PO Last administered on 05/11/16 08:36; Start 05/10/16 at 17:00 Diphenhydramine HCl (Benadryl) 25 mg PRN Q6HRS PRN PO ALLERGIES Last administered on 05/10/16 21:28; Start 05/10/16 at 14:15 Fluticasone Propionate (Flonase) 2 spray DAILY NS Last administered on 08:38; Start 05/10/16 at 15:00 Non-Formulary Medication 2 each DAILY PO ; Start 05/11/16 at 09:00; Status UNV Insulin Detemir (Levemir) 45 units QHS SQ Last administered on 05/10/16 21:26; Start 05/10/16 at 21:00 Lactobacillus Acidophilus (Bacid, Asiya-Bid) 1 tab BIDWMEALS PO Last administered on 05/11/16 08:35; Start 05/10/16 at 17:00 Zinc Oxide 1 ritu BID TP Last administered on 05/11/16 08:38; Start 05/10/16 at 15:00 Enoxaparin Sodium (Lovenox 60mg Syringe) 60 mg Q12HR SQ Last administered on 08:36; Start 05/10/16 at 21:00 Polysaccharide Iron Complex (Niferex 150) 150 mg DAILY PO Last administered on 05/11/16 08:37; Start 05/10/16 at 18:00 Neomycin/ Polymyxin/ Bacitracin (Triple Antibiotic Ointment) 1 pkt BID TP Last administered on 05/11/16 08:38; Start 05/11/16 at 09:00 Active Scripts Active Reported Novolog Flexpen (Insulin Aspart) 100 Unit/1 Ml Insuln.pen 30 SQ TIDWMEALS Aspirin 325 Mg Tablet 0.5 Tab PO DAILY Senna-S Tablet (Sennosides/Docusate Sodium) 1 Each Tablet 1 Each PO BID Nyamyc (Nystatin) 15 Gm Powder 15 Gm TP DAILY Culturelle (Lactobacillus Rhamnosus Gg) 1 Each Capsule 1 Each PO BIDWMEALS Lantus Solostar (Insulin Glargine,Hum.rec.anlog) 100 Unit/1 Ml Insuln.pen 45 Unit SQ QHS Hydralazine Hcl 25 Mg Tablet 2 Tab PO TID Cvs Glucosamine-Chondr Tablet (Glucosamine Hcl/Chondr [place] A Na) 1 Each Tablet 2 Each PO DAILY Gabapentin 300 Mg Capsule 300 Mg PO HS Gabapentin 100 Mg Capsule 200 Mg PO BIDWBK/AVE Flonase Allergy Relief (Fluticasone Propionate) 9.9 Ml [place].susp 2 Sprays NS DAILY Elta Seal Moisture Barrier (Zinc Oxide) 114 Gm Cream..g. 114 Gm TP BID Diphenhydramine Hcl 50 Mg Capsule 25 Mg PO Q6HRS PRN Clindamycin Hcl 300 Mg Capsule 300 Mg PO QID Vitamin D3 (Cholecalciferol (Vitamin D3)) 1,000 Unit Tablet 2,000 Unit PO DAILY Atorvastatin Calcium 20 Mg Tablet DAILY Venlafaxine Hcl Er (Venlafaxine Hcl) 150 Mg Cap.er.24h DAILY Furosemide 20 Mg Tablet 40 Mg BID Lisinopril 40 Mg Tablet 40 DAILY Carvedilol 25 Mg Tablet 25 BID Pantoprazole Sodium 40 Mg Tablet.dr DAILY Bupropion Hcl Sr (Bupropion Hcl) 150 Mg Tablet.er 150 BID Vitals/I & O Vital Sign - Last 24 Hours 05/10/16 05/10/16 05/10/16 05/10/16 12:23 14:47 14:57 14:58 Temp 100.0 100.0 Pulse 109 104 104 104 Resp 18 B/P 185/57 171/71 171/71 171/71 Pulse Ox 96 O2 Delivery Room Air 05/10/16 05/10/16 05/10/16 05/10/16 17:03 19:00 21:20 21:23 Temp 97.9 97.9 Pulse 104 95 95 Resp 20 B/P 171/71 144/52 144/52 Pulse Ox 96 O2 Delivery Room Air Room Air 05/10/16 05/11/16 05/11/16 05/11/16 23:00 03:00 07:00 08:00 Temp 97.7 97.5 97.5 97.7 97.5 97.5 Pulse 81 77 93 Resp 20 20 16 B/P 129/55 120/63 160/63 Pulse Ox 95 93 96 O2 Delivery Room Air Room Air Room Air Room Air 05/11/16 05/11/16 05/11/16 05/11/16 08:36 08:36 08:38 11:00 Temp 98.1 98.1 Pulse 93 93 93 76 Resp 24 B/P 160/63 160/63 160/63 140/70 Pulse Ox 97 O2 Delivery Nasal Cannula O2 Flow Rate 2.0 Intake and Output 05/10/16 05/10/16 05/11/16 15:00 23:00 07:00 Intake Total 480 ml 300 ml 0 ml Output Total 400 ml 450 ml Balance 80 ml 300 ml -450 ml ROHIT DAMON III DO May 11, 2016 12:06
[2016-05-11 15:00] VITALS: BP 136/58
[2016-05-11 19:00] VITALS: BP 124/58
[2016-05-11] MEDS: GABAPENTIN 300 MG CAPSULE. PO SCH (20:56)
[2016-05-11] MEDS: INSULIN DETEMIR 300 UNITS/3 ML INSULN.PEN. SQ SCH (21:20)
[2016-05-11 23:00] VITALS: BP 133/62
[2016-05-12 03:00] VITALS: BP 123/64
[2016-05-12 04:49] LABS: BASO # 0.1 x10^3/uL (0.0-0.2); BASO % 1 % (0-3); EOS % 4 % (0-3); HEMATOCRIT 30.6 % (39.0-53.0); HEMOGLOBIN 9.9 g/dL (13.0-17.5); LYMPH # 1.5 x10^3/uL (1.0-4.8); LYMPH % 19 % (24-48); MEAN CORPUSCULAR HEMOGLOBIN 29 pg (25-35); MEAN CORPUSCULAR HGB CONC 32 g/dL (31-37); MEAN CORPUSCULAR VOLUME 90 fL (79-100); MONO % 11 % (0-9); NEUT % 65 % (31-73); PLATELET COUNT 241 x10^3/uL (140-400); RED BLOOD COUNT 3.38 x10^6/uL (4.30-5.70); RED CELL DISTRIBUTION WIDTH 14.1 % (11.5-14.5); WHITE BLOOD COUNT 7.9 x10^3/uL (4.0-11.0)
[2016-05-12 05:13] LABS: CALCIUM 9.4 mg/dL (8.5-10.1); CREATININE 2.3 mg/dL (0.7-1.3); GFR 28.4; POTASSIUM 5.6 mmol/L (3.5-5.1)
[2016-05-12] MEDS: PANTOPRAZOLE 40 MG TABLET. PO SCH (06:31)
[2016-05-12 07:00] VITALS: BP 126/72
[2016-05-12] MEDS: ENOXAPARIN ** NOTE DOSE ** SYRINGE SQ SCH ×2 (08:19→20:59)
[2016-05-12] MEDS: IRON POLYSACCHARIDE COMPLEX 150 MG CAPSULE PO SCH (08:20)
[2016-05-12] MEDS: ASPIRIN 325 MG TABLET PO SCH (08:20)
[2016-05-12] MEDS: SENNOSIDES/DOCUSATE 8.6/50MG TABLET. PO SCH ×3 (08:20→21:00)
[2016-05-12] MEDS: GABAPENTIN 100 MG CAPSULE. PO SCH ×2 (08:20→11:17)
[2016-05-12] MEDS: buPROPion SR 150 MG TABLET.SA PO SCH ×2 (08:20→20:58)
[2016-05-12] MEDS: CHOLECALCIFEROL (VITAMIN D3) 1,000 UNIT TABLET PO SCH (08:21)
[2016-05-12] MEDS: ATORVASTATIN CALCIUM 20 MG TABLET PO SCH (08:21)
[2016-05-12] MEDS: BISACODYL 5 MG TABLET.DR. PO SCH (08:21)
[2016-05-12] MEDS: LISINOPRIL 40 MG TABLET. PO SCH (08:22)
[2016-05-12] MEDS: CARVEDILOL 12.5 MG TABLET PO SCH ×2 (08:22→17:38)
[2016-05-12] MEDS: FUROSEMIDE 40 MG TABLET PO SCH ×2 (08:22→15:12)
[2016-05-12] MEDS: HYDRALAZINE 25 MG TABLET PO SCH ×3 (08:22→20:59)
[2016-05-12] MEDS: ZINC OXIDE 20% TOPICAL OINTMENT 28GM TUBE. TP SCH ×2 (08:22→20:58)
[2016-05-12] MEDS: NYSTATIN TOPICAL POWDER 15GM BOTTLE. TP SCH (08:23)
[2016-05-12] MEDS: INSULIN ASPART 300 UNITS/3 ML INSULN.PEN SQ SCH ×6 (08:29→17:43)
[2016-05-12 11:00] VITALS: BP 136/79
[2016-05-12] MEDS: LACTOBACILLUS ACIDOPH & BULGAR 1 TABLET. PO SCH ×2 (11:17→17:37)
[2016-05-12] MEDS: FLUTICASONE 50MCG/NASAL SPRAY 16GM BOTTLE. NS SCH (11:18)
[2016-05-12] MEDS: NEOMY/BACITR/POLYMYXIN OINT PACKET. TP SCH ×2 (12:30→21:00)
--- NOTE | 2016-05-12 13:00 | PDOC ---
PROGRESS NOTES Chief Complaint Chief Complaint - Acute pain in right lower extremity - S/p Trans Metatarsal left foot amputation - Diabetes - CAD - CHF - HTN History of Present Illness History of Present Illness Patient was sitting the chair, reported that after injection in right knee joint he is feeling much better, no report of any acute events overnight, pt. was comfortable, plan of care discussed with pt. and RN. Vitals Vitals Vital Signs Date Time Temp Pulse Resp B/P Pulse Ox O2 Delivery O2 Flow Rate FiO2 05/12/16 11:00 98.0 98.0 05/12/16 11:00 80 20 136/79 98 Room Air 05/11/16 11:00 2.0 Physical Exam General: Alert, Oriented X3, Cooperative, No acute distress Lungs: Clear Abdomen: Soft, No tenderness Extremities: Other ( trans metatarsal amputation of left foot) Skin: Other (bruising in both lower extermities,) Labs LABS Laboratory Tests Test 05/11/16 17:00 05/11/16 20:43 05/12/16 02:10 05/12/16 04:10 Glucose (Fingerstick) 129mg/dL (70-99) 111mg/dL (70-99) 160mg/dL (70-99) White Blood Count 7.9x10^3/uL (4.0-11.0) Red Blood Count 3.38x10^6/uL (4.30-5.70) Hemoglobin 9.9g/dL (13.0-17.5) Hematocrit 30.6% (39.0-53.0) Mean Corpuscular Volume 90fL (79-100) Mean Corpuscular Hemoglobin 29pg (25-35) Mean Corpuscular Hemoglobin Concent 32g/dL (31-37) Red Cell Distribution Width 14.1% (11.5-14.5) Platelet Count 241x10^3/uL (140-400) Neutrophils (%) (Auto) 65% (31-73) Lymphocytes (%) (Auto) 19% (24-48) Monocytes (%) (Auto) 11% (0-9) Eosinophils (%) (Auto) 4% (0-3) Basophils (%) (Auto) 1% (0-3) Neutrophils # (Auto) 5.1x10^3uL (1.8-7.7) Lymphocytes # (Auto) 1.5x10^3/uL (1.0-4.8) Monocytes # (Auto) 0.9x10^3/uL (0.0-1.1) Eosinophils # (Auto) 0.3x10^3/uL (0.0-0.7) Basophils # (Auto) 0.1x10^3/uL (0.0-0.2) Sodium Level 142mmol/L (136-145) Potassium Level 5.6mmol/L (3.5-5.1) Chloride Level 106mmol/L (98-107) Carbon Dioxide Level 24mmol/L (21-32) Anion Gap 12 (6-14) Blood Urea Nitrogen 63mg/dL (8-26) Creatinine 2.3mg/dL (0.7-1.3) Estimated GFR (Cockcroft-Gault) 28.4 Glucose Level 193mg/dL (70-99) Calcium Level 9.4mg/dL (8.5-10.1) Test 05/12/16 07:08 Glucose (Fingerstick) 208mg/dL (70-99) Review of Systems Review of Systems Denies fever, nausea, vomiting, no SB, no CP, pain in right knee better after injection in knee joint by Dr. Hinton, Assessment and Plan Assessmemt and Plan ASSESSMENT: - Acute pain in right lower extremity - S/p Trans Metatarsal left foot amputation - Diabetes - CAD - CHF - HTN PLAN: - Continue care per floor protocol - Probable discharge to SNU on Friday - Continue wound care - Continue prn pain medication - recheck labs in AM - appreciate subspecialities inputs and recommendations Problems Medical Problems: (1) Acute pain of right lower extremity Status: Acute (2) Acute pain of right lower extremity Status: Acute (3) Unable to ambulate Status: Acute (4) Unable to ambulate Status: Acute Problems: Comment Review of Relevant I have reviewed the following items minnie (where applicable) has been applied. Labs Laboratory Tests Test 05/10/16 16:44 05/10/16 21:01 05/11/16 07:13 05/11/16 09:19 Glucose (Fingerstick) 234mg/dL (70-99) 182mg/dL (70-99) 173mg/dL (70-99) O2 Saturation 97% (92-99) Arterial Blood pH 7.36 (7.35-7.45) Arterial Blood pCO2 at Patient Temp 43mmHg (35-46) Arterial Blood pO2 at Patient Temp 112mmHg (65-108) Arterial Blood HCO3 24mmol/L (21-28) Arterial Blood Base Excess -2mmol/L (-3-3) FiO2 28 Test 05/11/16 11:07 05/11/16 17:00 05/11/16 20:43 05/12/16 02:10 Glucose (Fingerstick) 225mg/dL (70-99) 129mg/dL (70-99) 111mg/dL (70-99) 160mg/dL (70-99) Test 05/12/16 04:10 05/12/16 07:08 White Blood Count 7.9x10^3/uL (4.0-11.0) Red Blood Count 3.38x10^6/uL (4.30-5.70) Hemoglobin 9.9g/dL (13.0-17.5) Hematocrit 30.6% (39.0-53.0) Mean Corpuscular Volume 90fL (79-100) Mean Corpuscular Hemoglobin 29pg (25-35) Mean Corpuscular Hemoglobin Concent 32g/dL (31-37) Red Cell Distribution Width 14.1% (11.5-14.5) Platelet Count 241x10^3/uL (140-400) Neutrophils (%) (Auto) 65% (31-73) Lymphocytes (%) (Auto) 19% (24-48) Monocytes (%) (Auto) 11% (0-9) Eosinophils (%) (Auto) 4% (0-3) Basophils (%) (Auto) 1% (0-3) Neutrophils # (Auto) 5.1x10^3uL (1.8-7.7) Lymphocytes # (Auto) 1.5x10^3/uL (1.0-4.8) Monocytes # (Auto) 0.9x10^3/uL (0.0-1.1) Eosinophils # (Auto) 0.3x10^3/uL (0.0-0.7) Basophils # (Auto) 0.1x10^3/uL (0.0-0.2) Sodium Level 142mmol/L (136-145) Potassium Level 5.6mmol/L (3.5-5.1) Chloride Level 106mmol/L (98-107) Carbon Dioxide Level 24mmol/L (21-32) Anion Gap 12 (6-14) Blood Urea Nitrogen 63mg/dL (8-26) Creatinine 2.3mg/dL (0.7-1.3) Estimated GFR (Cockcroft-Gault) 28.4 Glucose Level 193mg/dL (70-99) Calcium Level 9.4mg/dL (8.5-10.1) Glucose (Fingerstick) 208mg/dL (70-99) Laboratory Tests Test 05/11/16 17:00 05/11/16 20:43 05/12/16 02:10 05/12/16 04:10 Glucose (Fingerstick) 129mg/dL (70-99) 111mg/dL (70-99) 160mg/dL (70-99) White Blood Count 7.9x10^3/uL (4.0-11.0) Red Blood Count 3.38x10^6/uL (4.30-5.70) Hemoglobin 9.9g/dL (13.0-17.5) Hematocrit 30.6% (39.0-53.0) Mean Corpuscular Volume 90fL (79-100) Mean Corpuscular Hemoglobin 29pg (25-35) Mean Corpuscular Hemoglobin Concent 32g/dL (31-37) Red Cell Distribution Width 14.1% (11.5-14.5) Platelet Count 241x10^3/uL (140-400) Neutrophils (%) (Auto) 65% (31-73) Lymphocytes (%) (Auto) 19% (24-48) Monocytes (%) (Auto) 11% (0-9) Eosinophils (%) (Auto) 4% (0-3) Basophils (%) (Auto) 1% (0-3) Neutrophils # (Auto) 5.1x10^3uL (1.8-7.7) Lymphocytes # (Auto) 1.5x10^3/uL (1.0-4.8) Monocytes # (Auto) 0.9x10^3/uL (0.0-1.1) Eosinophils # (Auto) 0.3x10^3/uL (0.0-0.7) Basophils # (Auto) 0.1x10^3/uL (0.0-0.2) Sodium Level 142mmol/L (136-145) Potassium Level 5.6mmol/L (3.5-5.1) Chloride Level 106mmol/L (98-107) Carbon Dioxide Level 24mmol/L (21-32) Anion Gap 12 (6-14) Blood Urea Nitrogen 63mg/dL (8-26) Creatinine 2.3mg/dL (0.7-1.3) Estimated GFR (Cockcroft-Gault) 28.4 Glucose Level 193mg/dL (70-99) Calcium Level 9.4mg/dL (8.5-10.1) Test 05/12/16 07:08 Glucose (Fingerstick) 208mg/dL (70-99) Medications Current Medications Oxycodone/ Acetaminophen (Percocet 5/325) 2 tab 1X ONCE PO Last administered on 05/09/16 18:30; Start 05/09/16 at 18:30; Stop 05/09/16 at 18:33; Status DC Ondansetron HCl (Zofran) 4 mg PRN Q8HRS PRN IV NAUSEA/VOMITING; Start 05/09/16 at 21:45; Stop 05/10/16 at 21:44; Status DC Acetaminophen (Tylenol) 650 mg PRN Q4HRS PRN PO FEVER; Start 05/09/16 at 21:45; Stop 05/10/16 at 21:44; Status DC Oxycodone HCl (Roxicodone) 10 mg PRN Q4HRS PRN PO SEVERE PAIN; Start 05/09/16 at 21:45 Insulin Aspart (Novolog) 0-7 UNITS TIDWMEALS SQ Last administered on 05/12/16 12:40; Start 05/10/16 at 08:00 Dextrose 12.5 gm PRN Q15MIN PRN IV SEE COMMENTS; Start 05/09/16 at 21:45 Diphenhydramine HCl (Benadryl) 25 mg 1X ONCE PO Last administered on 05/09/16 23:38; Start 05/09/16 at 23:45; Stop 05/09/16 at 23:46; Status DC Pneumococcal Polyvalent Vaccine (Pneumovax 23) 0.5 ml ONCE ONCE VAX IM Last administered on 05/10/16 08:13; Start 05/10/16 at 09:00; Stop 05/10/16 at 09:01; Status DC Hydralazine HCl (Apresoline) 10 mg PRN Q4HRS PRN IVP ELEVATED BP, SEE COMMENTS Last administered on 05/10/16 12:23; Start 05/10/16 at 02:00 Methylprednisolone Acetate (Depo-Medrol 80mg Vial) 80 mg 1X ONCE IM Last administered on 05/10/16 10:30; Start 05/10/16 at 10:30; Stop 05/10/16 at 10:31; Status DC Bupivacaine HCl (Sensorcaine-Mpf 0.25%) 10 ml 1X ONCE IJ Last administered on 05/10/16 10:30; Start 05/10/16 at 10:30; Stop 05/10/16 at 10:31; Status DC Bisacodyl (Dulcolax Tab) 10 mg DAILY PO Last administered on 05/12/16 08:21; Start 05/10/16 at 10:30 Senna/Docusate Sodium (Senna Plus) 1 tab BID PO Last administered on 05/12/16 08:20; Start 05/10/16 at 10:30 Aspirin (Jacquelin Aspirin) 325 mg DAILY PO Last administered on 05/12/16 08:20; Start 05/10/16 at 15:00 Atorvastatin Calcium (Lipitor) 20 mg DAILY PO Last administered on 05/12/16 08: 21; Start 05/10/16 at 15:00 Bupropion HCl (Wellbutrin Sr) 150 mg BID PO Last administered on 05/12/16 08:20 ; Start 05/10/16 at 15:00 Vitamin D (Vitamin D3) 2,000 unit DAILY PO Last administered on 05/12/16 08:21 ; Start 05/10/16 at 15:00 Furosemide (Lasix) 40 mg BID94 PO Last administered on 05/12/16 08:22; Start at 16:00 Gabapentin (Neurontin) 200 mg BIDWBKFT/AVE PO Last administered on 05/12/16 11: 17; Start 05/10/16 at 15:00 Gabapentin (Neurontin) 300 mg HS PO Last administered on 05/11/16 20:56; Start 05/10/16 at 21:00 Hydralazine HCl (Apresoline) 25 mg TID PO Last administered on 05/12/16 08:22; Start 05/10/16 at 14:00 Insulin Aspart (Novolog) 20 units TIDWMEALS SQ ; Start 05/10/16 at 17:00; Status Cancel Insulin Aspart (Novolog) 30 units TIDWMEALS SQ Last administered on 05/12/16 12 :40; Start 05/10/16 at 17:00 Lisinopril (Prinivil) 40 mg DAILY PO Last administered on 05/12/16 08:22; Start 05/10/16 at 15:00 Nystatin (Nystop) 1 ritu DAILY TP Last administered on 05/12/16 08:23; Start 05/10/16 at 15:00 Pantoprazole Sodium (Protonix) 40 mg DAILYAC PO Last administered on 05/12/16 06:31; Start 05/10/16 at 15:00 Senna/Docusate Sodium (Senna Plus) 1 tab BID PO ; Start 05/10/16 at 21:00; Status UNV Carvedilol (Coreg) 25 mg BIDWMEALS PO Last administered on 05/12/16 08:22; Start 05/10/16 at 17:00 Diphenhydramine HCl (Benadryl) 25 mg PRN Q6HRS PRN PO ALLERGIES Last administered on 05/10/16 21:28; Start 05/10/16 at 14:15 Fluticasone Propionate (Flonase) 2 spray DAILY NS Last administered on 11:18; Start 05/10/16 at 15:00 Non-Formulary Medication 2 each DAILY PO ; Start 05/11/16 at 09:00; Status UNV Insulin Detemir (Levemir) 45 units QHS SQ Last administered on 05/11/16 21:20; Start 05/10/16 at 21:00 Lactobacillus Acidophilus (Bacid, Asiya-Bid) 1 tab BIDWMEALS PO Last administered on 05/12/16 11:17; Start 05/10/16 at 17:00 Zinc Oxide 1 ritu BID TP Last administered on 05/12/16 08:22; Start 05/10/16 at 15:00 Enoxaparin Sodium (Lovenox 60mg Syringe) 60 mg Q12HR SQ Last administered on 08:19; Start 05/10/16 at 21:00 Polysaccharide Iron Complex (Niferex 150) 150 mg DAILY PO Last administered on 05/12/16 08:20; Start 05/10/16 at 18:00 Neomycin/ Polymyxin/ Bacitracin (Triple Antibiotic Ointment) 1 pkt BID TP Last administered on 05/12/16 12:30; Start 05/11/16 at 09:00 Active Scripts Active Reported Novolog Flexpen (Insulin Aspart) 100 Unit/1 Ml Insuln.pen 30 SQ TIDWMEALS Aspirin 325 Mg Tablet 0.5 Tab PO DAILY Senna-S Tablet (Sennosides/Docusate Sodium) 1 Each Tablet 1 Each PO BID Nyamyc (Nystatin) 15 Gm Powder 15 Gm TP DAILY Culturelle (Lactobacillus Rhamnosus Gg) 1 Each Capsule 1 Each PO BIDWMEALS Lantus Solostar (Insulin Glargine,Hum.rec.anlog) 100 Unit/1 Ml Insuln.pen 45 Unit SQ QHS Hydralazine Hcl 25 Mg Tablet 2 Tab PO TID Cvs Glucosamine-Chondr Tablet (Glucosamine Hcl/Chondr [place] A Na) 1 Each Tablet 2 Each PO DAILY Gabapentin 300 Mg Capsule 300 Mg PO HS Gabapentin 100 Mg Capsule 200 Mg PO BIDWBKFT/AVE Flonase Allergy Relief (Fluticasone Propionate) 9.9 Ml [place].susp 2 Sprays NS DAILY Elta Seal Moisture Barrier (Zinc Oxide) 114 Gm Cream..g. 114 Gm TP BID Diphenhydramine Hcl 50 Mg Capsule 25 Mg PO Q6HRS PRN Clindamycin Hcl 300 Mg Capsule 300 Mg PO QID Vitamin D3 (Cholecalciferol (Vitamin D3)) 1,000 Unit Tablet 2,000 Unit PO DAILY Atorvastatin Calcium 20 Mg Tablet DAILY Venlafaxine Hcl Er (Venlafaxine Hcl) 150 Mg Cap.er.24h DAILY Furosemide 20 Mg Tablet 40 Mg BID Lisinopril 40 Mg Tablet 40 DAILY Carvedilol 25 Mg Tablet 25 BID Pantoprazole Sodium 40 Mg Tablet.dr DAILY Bupropion Hcl Sr (Bupropion Hcl) 150 Mg Tablet.er 150 BID Vitals/I & O Vital Sign - Last 24 Hours 05/11/16 05/11/16 05/11/16 05/11/16 15:00 15:42 17:32 19:00 Temp 97.6 98.1 97.6 98.1 Pulse 77 76 76 73 Resp 18 18 B/P 136/58 140/70 140/70 124/58 Pulse Ox 96 93 O2 Delivery Room Air Room Air 05/11/16 05/11/16 05/11/16 05/12/16 20:00 20:55 23:00 03:00 Temp 97.9 97.9 97.9 97.9 Pulse 70 74 74 Resp 18 B/P 147/61 133/62 123/64 Pulse Ox 95 97 O2 Delivery Room Air Room Air Room Air 05/12/16 05/12/16 05/12/16 05/12/16 07:00 08:00 08:22 08:22 Temp 97.0 97.0 Pulse 73 73 73 Resp 16 B/P 126/72 126/72 126/72 Pulse Ox 97 O2 Delivery Room Air Room Air 05/12/16 05/12/16 05/12/16 08:22 11:00 11:00 Temp 98.0 98.0 Pulse 73 80 Resp 20 B/P 126/72 136/79 Pulse Ox 98 O2 Delivery Room Air Intake and Output 05/11/16 05/11/16 05/12/16 15:00 23:00 07:00 Intake Total 500 ml 240 ml Output Total 0 ml Balance 500 ml 240 ml ROHIT DAMON III DO May 12, 2016 13:00
[2016-05-12 14:08] LABS: BILIRUBIN,URINE NEGATIVE (NEG); GLUCOSE,URINE NEGATIVE (NEG); NITRITE,URINE NEGATIVE (NEG); PROTEIN,URINE NEGATIVE (NEG-TRACE); UROBILINOGEN,URINE 0.2 mg/dL (0.2 mg/dL)
[2016-05-12 14:28] LABS: BACTERIA,URINE FEW /HPF (0-FEW); RBC,URINE 0 /HPF (0-2); SQUAMOUS EPITHELIAL CELL,UR OCC /LPF; WBC,URINE OCC /HPF (0-4)
[2016-05-12 15:00] VITALS: BP 118/54
--- NOTE | 2016-05-12 15:05 | PDOC ---
PULMONARY PROGRESS NOTES Vitals Vital Signs Date Time Temp Pulse Resp B/P Pulse Ox O2 Delivery O2 Flow Rate FiO2 05/12/16 11:00 98.0 98.0 05/12/16 11:00 80 20 136/79 98 Room Air 05/11/16 11:00 2.0 Labs Laboratory Tests Test 05/10/16 16:44 05/10/16 21:01 05/11/16 07:13 05/11/16 09:19 Glucose (Fingerstick) 234mg/dL (70-99) 182mg/dL (70-99) 173mg/dL (70-99) O2 Saturation 97% (92-99) Arterial Blood pH 7.36 (7.35-7.45) Arterial Blood pCO2 at Patient Temp 43mmHg (35-46) Arterial Blood pO2 at Patient Temp 112mmHg (65-108) Arterial Blood HCO3 24mmol/L (21-28) Arterial Blood Base Excess -2mmol/L (-3-3) FiO2 28 Test 05/11/16 11:07 05/11/16 17:00 05/11/16 20:43 05/12/16 02:10 Glucose (Fingerstick) 225mg/dL (70-99) 129mg/dL (70-99) 111mg/dL (70-99) 160mg/dL (70-99) Test 05/12/16 04:10 05/12/16 07:08 05/12/16 13:30 White Blood Count 7.9x10^3/uL (4.0-11.0) Red Blood Count 3.38x10^6/uL (4.30-5.70) Hemoglobin 9.9g/dL (13.0-17.5) Hematocrit 30.6% (39.0-53.0) Mean Corpuscular Volume 90fL (79-100) Mean Corpuscular Hemoglobin 29pg (25-35) Mean Corpuscular Hemoglobin Concent 32g/dL (31-37) Red Cell Distribution Width 14.1% (11.5-14.5) Platelet Count 241x10^3/uL (140-400) Neutrophils (%) (Auto) 65% (31-73) Lymphocytes (%) (Auto) 19% (24-48) Monocytes (%) (Auto) 11% (0-9) Eosinophils (%) (Auto) 4% (0-3) Basophils (%) (Auto) 1% (0-3) Neutrophils # (Auto) 5.1x10^3uL (1.8-7.7) Lymphocytes # (Auto) 1.5x10^3/uL (1.0-4.8) Monocytes # (Auto) 0.9x10^3/uL (0.0-1.1) Eosinophils # (Auto) 0.3x10^3/uL (0.0-0.7) Basophils # (Auto) 0.1x10^3/uL (0.0-0.2) Sodium Level 142mmol/L (136-145) Potassium Level 5.6mmol/L (3.5-5.1) Chloride Level 106mmol/L (98-107) Carbon Dioxide Level 24mmol/L (21-32) Anion Gap 12 (6-14) Blood Urea Nitrogen 63mg/dL (8-26) Creatinine 2.3mg/dL (0.7-1.3) Estimated GFR (Cockcroft-Gault) 28.4 Glucose Level 193mg/dL (70-99) Calcium Level 9.4mg/dL (8.5-10.1) Glucose (Fingerstick) 208mg/dL (70-99) Urine Collection Type Unknown Urine Color Yellow Urine Clarity Clear Urine pH 5.0 Urine Specific [place] 1.015 Urine Protein Negativemg/dL (NEG-TRACE) Urine Glucose (UA) Negativemg/dL (NEG) Urine Ketones (Stick) Negativemg/dL (NEG) Urine Blood Negative (NEG) Urine Nitrite Negative (NEG) Urine Bilirubin Negative (NEG) Urine Urobilinogen Dipstick 0.2mg/dL (0.2 mg/dL) Urine Leukocyte Esterase Negative (NEG) Urine RBC 0/HPF (0-2) Urine WBC Occ/HPF (0-4) Urine Squamous Epithelial Cells Occ/LPF Urine Bacteria Few/HPF (0-FEW) Urine Hyaline Casts Few/HPF Urine Mucus Slight/LPF Laboratory Tests Test 05/11/16 17:00 05/11/16 20:43 05/12/16 02:10 05/12/16 04:10 Glucose (Fingerstick) 129mg/dL (70-99) 111mg/dL (70-99) 160mg/dL (70-99) White Blood Count 7.9x10^3/uL (4.0-11.0) Red Blood Count 3.38x10^6/uL (4.30-5.70) Hemoglobin 9.9g/dL (13.0-17.5) Hematocrit 30.6% (39.0-53.0) Mean Corpuscular Volume 90fL (79-100) Mean Corpuscular Hemoglobin 29pg (25-35) Mean Corpuscular Hemoglobin Concent 32g/dL (31-37) Red Cell Distribution Width 14.1% (11.5-14.5) Platelet Count 241x10^3/uL (140-400) Neutrophils (%) (Auto) 65% (31-73) Lymphocytes (%) (Auto) 19% (24-48) Monocytes (%) (Auto) 11% (0-9) Eosinophils (%) (Auto) 4% (0-3) Basophils (%) (Auto) 1% (0-3) Neutrophils # (Auto) 5.1x10^3uL (1.8-7.7) Lymphocytes # (Auto) 1.5x10^3/uL (1.0-4.8) Monocytes # (Auto) 0.9x10^3/uL (0.0-1.1) Eosinophils # (Auto) 0.3x10^3/uL (0.0-0.7) Basophils # (Auto) 0.1x10^3/uL (0.0-0.2) Sodium Level 142mmol/L (136-145) Potassium Level 5.6mmol/L (3.5-5.1) Chloride Level 106mmol/L (98-107) Carbon Dioxide Level 24mmol/L (21-32) Anion Gap 12 (6-14) Blood Urea Nitrogen 63mg/dL (8-26) Creatinine 2.3mg/dL (0.7-1.3) Estimated GFR (Cockcroft-Gault) 28.4 Glucose Level 193mg/dL (70-99) Calcium Level 9.4mg/dL (8.5-10.1) Test 05/12/16 07:08 05/12/16 13:30 Glucose (Fingerstick) 208mg/dL (70-99) Urine Collection Type Unknown Urine Color Yellow Urine Clarity Clear Urine pH 5.0 Urine Specific [place] 1.015 Urine Protein Negativemg/dL (NEG-TRACE) Urine Glucose (UA) Negativemg/dL (NEG) Urine Ketones (Stick) Negativemg/dL (NEG) Urine Blood Negative (NEG) Urine Nitrite Negative (NEG) Urine Bilirubin Negative (NEG) Urine Urobilinogen Dipstick 0.2mg/dL (0.2 mg/dL) Urine Leukocyte Esterase Negative (NEG) Urine RBC 0/HPF (0-2) Urine WBC Occ/HPF (0-4) Urine Squamous Epithelial Cells Occ/LPF Urine Bacteria Few/HPF (0-FEW) Urine Hyaline Casts Few/HPF Urine Mucus Slight/LPF Medications Active Scripts Medications Dose Route/Sig Days Date Category Novolog Flexpen (Insulin Aspart) 100 Unit/1 Ml Insuln.pen 30 SQ TIDWMEALS 05/09/16 Reported Aspirin 325 Mg Tablet 0.5 Tab PO DAILY 10/25/15 Reported Senna-S Tablet (Sennosides/Docusate Sodium) 1 Each Tablet 1 Each PO BID 10/25/15 Reported Nyamyc (Nystatin) 15 Gm Powder 15 Gm TP DAILY 10/25/15 Reported Culturelle (Lactobacillus Rhamnosus Gg) 1 Each Capsule 1 Each PO BIDWMEALS 10/25/15 Reported Lantus Solostar (Insulin Glargine,Hum.rec.anlog) 100 Unit/1 Ml Insuln.pen 45 Unit SQ QHS 10/25/15 Reported Hydralazine Hcl 25 Mg Tablet 2 Tab PO TID 10/25/15 Reported Cvs Glucosamine-Chondr Tablet (Glucosamine Hcl/Chondr [place] A Na) 1 Each Tablet 2 Each PO DAILY 10/25/15 Reported Gabapentin 300 Mg Capsule 300 Mg PO HS 10/25/15 Reported Gabapentin 100 Mg Capsule 200 Mg PO BIDWBKFT/AVE 10/25/15 Reported Flonase Allergy Relief (Fluticasone Propionate) 9.9 Ml [place].susp 2 Sprays NS DAILY 10/25/15 Reported Elta Seal Moisture Barrier (Zinc Oxide) 114 Gm Cream..g. 114 Gm TP BID 10/25/15 Reported Diphenhydramine Hcl 50 Mg Capsule 25 Mg PO Q6HRS PRN 10/25/15 Reported Clindamycin Hcl 300 Mg Capsule 300 Mg PO QID 10/25/15 Reported Vitamin D3 (Cholecalciferol (Vitamin D3)) 1,000 Unit Tablet 2,000 Unit PO DAILY 10/25/15 Reported Atorvastatin Calcium 20 Mg Tablet DAILY 10/25/15 Reported Venlafaxine Hcl Er (Venlafaxine Hcl) 150 Mg Cap.er.24h DAILY 10/25/15 Reported Furosemide 20 Mg Tablet 40 Mg BID 10/25/15 Reported Lisinopril 40 Mg Tablet 40 DAILY 10/25/15 Reported Carvedilol 25 Mg Tablet 25 BID 10/25/15 Reported Pantoprazole Sodium 40 Mg Tablet.dr DAILY 10/25/15 Reported Bupropion Hcl Sr (Bupropion Hcl) 150 Mg Tablet.er 150 BID 10/25/15 Reported Impression . FULL CONSULT DICTATED SEE ORDERS HOME BIPAP PRN TIMMY SHARMA MD May 12, 2016 15:05
[2016-05-12] MEDS ORDERED: DIPHENHYDRAMINE HCL 25 MG CAPSULE PO PRN (15:15)
[2016-05-12 19:00] VITALS: BP 136/64
[2016-05-12] MEDS: GABAPENTIN 300 MG CAPSULE. PO SCH (20:58)
[2016-05-12] MEDS: INSULIN DETEMIR 300 UNITS/3 ML INSULN.PEN. SQ SCH (21:13)
[2016-05-12 23:00] VITALS: BP 134/64
[2016-05-13 03:00] VITALS: BP 128/56
[2016-05-13 06:05] LABS: BASO # 0.1 x10^3/uL (0.0-0.2); BASO % 1 % (0-3); EOS % 3 % (0-3); HEMATOCRIT 29.5 % (39.0-53.0); HEMOGLOBIN 9.8 g/dL (13.0-17.5); LYMPH # 1.8 x10^3/uL (1.0-4.8); LYMPH % 17 % (24-48); MEAN CORPUSCULAR HEMOGLOBIN 29 pg (25-35); MEAN CORPUSCULAR HGB CONC 33 g/dL (31-37); MEAN CORPUSCULAR VOLUME 87 fL (79-100); MONO % 11 % (0-9); NEUT % 69 % (31-73); PLATELET COUNT 239 x10^3/uL (140-400); RED BLOOD COUNT 3.38 x10^6/uL (4.30-5.70); RED CELL DISTRIBUTION WIDTH 14.2 % (11.5-14.5); WHITE BLOOD COUNT 10.7 x10^3/uL (4.0-11.0)
[2016-05-13 06:35] LABS: CALCIUM 9.4 mg/dL (8.5-10.1); CREATININE 2.2 mg/dL (0.7-1.3); GFR 29.9; POTASSIUM 4.7 mmol/L (3.5-5.1)
[2016-05-13 07:00] VITALS: BP_SYST 120; BP_SYST 157; BP_DIAS 44; BP_DIAS 69
[2016-05-13] MEDS: ENOXAPARIN ** NOTE DOSE ** SYRINGE SQ SCH (08:13)
[2016-05-13] MEDS: BISACODYL 5 MG TABLET.DR. PO SCH (08:15)
[2016-05-13] MEDS: LACTOBACILLUS ACIDOPH & BULGAR 1 TABLET. PO SCH ×2 (08:15→17:53)
[2016-05-13] MEDS: ASPIRIN 325 MG TABLET PO SCH (08:15)
[2016-05-13] MEDS: CARVEDILOL 12.5 MG TABLET PO SCH ×2 (08:16→17:53)
[2016-05-13] MEDS: buPROPion SR 150 MG TABLET.SA PO SCH (08:16)
[2016-05-13] MEDS: NEOMY/BACITR/POLYMYXIN OINT PACKET. TP SCH (08:17)
[2016-05-13] MEDS: CHOLECALCIFEROL (VITAMIN D3) 1,000 UNIT TABLET PO SCH (08:17)
[2016-05-13] MEDS: LISINOPRIL 40 MG TABLET. PO SCH (08:18)
[2016-05-13] MEDS: ATORVASTATIN CALCIUM 20 MG TABLET PO SCH (08:18)
[2016-05-13] MEDS: SENNOSIDES/DOCUSATE 8.6/50MG TABLET. PO SCH (08:19)
[2016-05-13] MEDS: FUROSEMIDE 40 MG TABLET PO SCH ×2 (08:19→17:53)
[2016-05-13] MEDS: HYDRALAZINE 25 MG TABLET PO SCH ×2 (08:19→14:18)
[2016-05-13] MEDS: IRON POLYSACCHARIDE COMPLEX 150 MG CAPSULE PO SCH (08:20)
[2016-05-13] MEDS: GABAPENTIN 100 MG CAPSULE. PO SCH ×2 (08:20→12:17)
[2016-05-13] MEDS: PANTOPRAZOLE 40 MG TABLET. PO SCH (08:20)
[2016-05-13] MEDS: FLUTICASONE 50MCG/NASAL SPRAY 16GM BOTTLE. NS SCH (08:21)
[2016-05-13] MEDS: NYSTATIN TOPICAL POWDER 15GM BOTTLE. TP SCH (08:21)
[2016-05-13] MEDS: ZINC OXIDE 20% TOPICAL OINTMENT 28GM TUBE. TP SCH (08:21)
[2016-05-13] MEDS: INSULIN ASPART 300 UNITS/3 ML INSULN.PEN SQ SCH ×6 (08:24→17:56)
--- NOTE | 2016-05-13 09:33 | HP ---
ADMIT DATE: 05/10/2016 CHIEF COMPLAINT: Intractable right knee pain, inability to ambulate. HISTORY OF PRESENT ILLNESS: A 70-year-old male patient with type 2 diabetes mellitus, hypertension and morbid obesity, BMI more than 56, presented to the ER with right lower extremity pain, which is intractable in nature, which has been there for nearly a few days. The patient was at ER a few days ago. He was examined and they sent him home without any admission; however, the patient denies any trauma or any changes in lifestyle. He has been diagnosed with peripheral neuropathy, has been on gabapentin and also tried oxycodone, which did not help his pain. When he presented to the ER, he was admitted to the hospital for observation and pain control and further evaluation by Physical Therapy and Occupational Therapy. At the time of my examination this morning, the patient complained of severe right lower extremity pain and inability to ambulate and I did talk to Physical Medicine and Rehabilitation physician who tried to give him an intra-articular injection for controlling his pain. The patient did have severe excoriations in bilateral lower extremities and is complaining of intractable itching. Denies any other complaints. PAST MEDICAL HISTORY: Please see my electronic H and P. REVIEW OF SYSTEMS: Please see my electronic H and P. PHYSICAL EXAMINATION: Please see my electronic H and P. LABORATORY FINDINGS: WBC 8.7, hemoglobin is 9.9, hematocrit is 29.3, MCV is 87, platelets 247. ESR is ____. Chemistry: Sodium is 140, potassium is 4.8, chloride is 104, carbon dioxide ____, anion gap 11, BUN is 53, creatinine is 1.9, GFR 35.4, glucose is 213. Baseline creatinine is around 2.8. ASSESSMENT: 1. Intractable right lower extremity pain, especially right knee. 2. 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 3. Type 2 diabetes mellitus with hyperglycemia. 4. 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 5. Hypertension. 6. Peripheral neuropathy. 7. Gastroesophageal reflux disease. 8. Depression. PLAN: 1. The patient's pain has been controlled with oxycodone, Tylenol 3 and [place]. I did speak with Dr. Hinton who did the intra-articular Medrol injection, which did relieve some pain for the patient. Also, I will consult Physical Therapy and Occupational Therapy. 2. This morning, he has been developing some fever, so I will get a chest x-ray and urinalysis to rule out any infection; however, at this time, WBC is not suggestive of any acute infection. Other than skin excoriations, I did not see any signs of infection. 3. Cardiovascular has been consulted and no further recommendations in hospitalization. 4. Social work has been following the patient. 5. Sliding scale insulin. 6. Home medications reviewed and reconciled. The patient has polypharmacy. 7. Plan discussed with the patient's and son. I will appreciate Physical Therapy recommendations. 8. He had lower extremity ultrasounds for ruling out DVT and these are negative. 9. Knee x-ray is suggestive of advanced degenerative arthrosis involving the joint without acute findings. 10. I will give him Lovenox for DVT prophylaxis. DAMARI NEWMAN MD DR: GIO/domitila JOB#: [id number] / [id number] KEVIN
--- NOTE | 2016-05-13 09:43 | PDOC ---
PROGRESS NOTES Subjective Subjective He feels better and he is walking with right knee brace on. Objective Objective Vital Signs Date Time Temp Pulse Resp B/P Pulse Ox O2 Delivery O2 Flow Rate FiO2 05/13/16 08:19 85 157/44 05/13/16 08:00 Room Air 05/13/16 07:00 96.3 20 97 96.3 05/11/16 11:00 2.0 Intake and Output 05/13/16 07:00 Intake Total 1740 ml Balance 1740 ml Intake Oral 1740 ml # Voids 7 # Bowel Movements 2 Physical Exam Physical Exam He is alert and comfortable and had medial batch unloader knee brace on low down and I have adjusted it and he had dressing to left foot stump and he has not received vascular boots yet and I would like Program Scheduler's to look at built up left foot shoe,to make sure it is not irritating the stump and home when medically stable with out patient follow up. Assessment Assessment Problems Medical Problems: (1) Acute pain of right lower extremity Status: Acute (2) Acute pain of right lower extremity Status: Acute (3) Unable to ambulate Status: Acute (4) Unable to ambulate Status: Acute Comment Review of Relevant I have reviewed the following items minnie (where applicable) has been applied. Labs Laboratory Tests Test 05/11/16 11:07 05/11/16 17:00 05/11/16 20:43 05/12/16 02:10 Glucose (Fingerstick) 225mg/dL (70-99) 129mg/dL (70-99) 111mg/dL (70-99) 160mg/dL (70-99) Test 05/12/16 04:10 05/12/16 07:08 05/12/16 11:59 05/12/16 13:30 White Blood Count 7.9x10^3/uL (4.0-11.0) Red Blood Count 3.38x10^6/uL (4.30-5.70) Hemoglobin 9.9g/dL (13.0-17.5) Hematocrit 30.6% (39.0-53.0) Mean Corpuscular Volume 90fL (79-100) Mean Corpuscular Hemoglobin 29pg (25-35) Mean Corpuscular Hemoglobin Concent 32g/dL (31-37) Red Cell Distribution Width 14.1% (11.5-14.5) Platelet Count 241x10^3/uL (140-400) Neutrophils (%) (Auto) 65% (31-73) Lymphocytes (%) (Auto) 19% (24-48) Monocytes (%) (Auto) 11% (0-9) Eosinophils (%) (Auto) 4% (0-3) Basophils (%) (Auto) 1% (0-3) Neutrophils # (Auto) 5.1x10^3uL (1.8-7.7) Lymphocytes # (Auto) 1.5x10^3/uL (1.0-4.8) Monocytes # (Auto) 0.9x10^3/uL (0.0-1.1) Eosinophils # (Auto) 0.3x10^3/uL (0.0-0.7) Basophils # (Auto) 0.1x10^3/uL (0.0-0.2) Sodium Level 142mmol/L (136-145) Potassium Level 5.6mmol/L (3.5-5.1) Chloride Level 106mmol/L (98-107) Carbon Dioxide Level 24mmol/L (21-32) Anion Gap 12 (6-14) Blood Urea Nitrogen 63mg/dL (8-26) Creatinine 2.3mg/dL (0.7-1.3) Estimated GFR (Cockcroft-Gault) 28.4 Glucose Level 193mg/dL (70-99) Calcium Level 9.4mg/dL (8.5-10.1) Glucose (Fingerstick) 208mg/dL (70-99) 175mg/dL (70-99) Urine Collection Type Unknown Urine Color Yellow Urine Clarity Clear Urine pH 5.0 Urine Specific [place] 1.015 Urine Protein Negativemg/dL (NEG-TRACE) Urine Glucose (UA) Negativemg/dL (NEG) Urine Ketones (Stick) Negativemg/dL (NEG) Urine Blood Negative (NEG) Urine Nitrite Negative (NEG) Urine Bilirubin Negative (NEG) Urine Urobilinogen Dipstick 0.2mg/dL (0.2 mg/dL) Urine Leukocyte Esterase Negative (NEG) Urine RBC 0/HPF (0-2) Urine WBC Occ/HPF (0-4) Urine Squamous Epithelial Cells Occ/LPF Urine Bacteria Few/HPF (0-FEW) Urine Hyaline Casts Few/HPF Urine Mucus Slight/LPF Test 05/12/16 17:09 05/12/16 20:54 05/13/16 05:30 05/13/16 07:56 Glucose (Fingerstick) 116mg/dL (70-99) 137mg/dL (70-99) 156mg/dL (70-99) White Blood Count 10.7x10^3/uL (4.0-11.0) Red Blood Count 3.38x10^6/uL (4.30-5.70) Hemoglobin 9.8g/dL (13.0-17.5) Hematocrit 29.5% (39.0-53.0) Mean Corpuscular Volume 87fL (79-100) Mean Corpuscular Hemoglobin 29pg (25-35) Mean Corpuscular Hemoglobin Concent 33g/dL (31-37) Red Cell Distribution Width 14.2% (11.5-14.5) Platelet Count 239x10^3/uL (140-400) Neutrophils (%) (Auto) 69% (31-73) Lymphocytes (%) (Auto) 17% (24-48) Monocytes (%) (Auto) 11% (0-9) Eosinophils (%) (Auto) 3% (0-3) Basophils (%) (Auto) 1% (0-3) Neutrophils # (Auto) 7.3x10^3uL (1.8-7.7) Lymphocytes # (Auto) 1.8x10^3/uL (1.0-4.8) Monocytes # (Auto) 1.2x10^3/uL (0.0-1.1) Eosinophils # (Auto) 0.3x10^3/uL (0.0-0.7) Basophils # (Auto) 0.1x10^3/uL (0.0-0.2) Sodium Level 143mmol/L (136-145) Potassium Level 4.7mmol/L (3.5-5.1) Chloride Level 106mmol/L (98-107) Carbon Dioxide Level 24mmol/L (21-32) Anion Gap 13 (6-14) Blood Urea Nitrogen 75mg/dL (8-26) Creatinine 2.2mg/dL (0.7-1.3) Estimated GFR (Cockcroft-Gault) 29.9 Glucose Level 148mg/dL (70-99) Calcium Level 9.4mg/dL (8.5-10.1) Laboratory Tests Test 05/12/16 11:59 05/12/16 13:30 05/12/16 17:09 05/12/16 20:54 Glucose (Fingerstick) 175mg/dL (70-99) 116mg/dL (70-99) 137mg/dL (70-99) Urine Collection Type Unknown Urine Color Yellow Urine Clarity Clear Urine pH 5.0 Urine Specific [place] 1.015 Urine Protein Negativemg/dL (NEG-TRACE) Urine Glucose (UA) Negativemg/dL (NEG) Urine Ketones (Stick) Negativemg/dL (NEG) Urine Blood Negative (NEG) Urine Nitrite Negative (NEG) Urine Bilirubin Negative (NEG) Urine Urobilinogen Dipstick 0.2mg/dL (0.2 mg/dL) Urine Leukocyte Esterase Negative (NEG) Urine RBC 0/HPF (0-2) Urine WBC Occ/HPF (0-4) Urine Squamous Epithelial Cells Occ/LPF Urine Bacteria Few/HPF (0-FEW) Urine Hyaline Casts Few/HPF Urine Mucus Slight/LPF Test 05/13/16 05:30 05/13/16 07:56 White Blood Count 10.7x10^3/uL (4.0-11.0) Red Blood Count 3.38x10^6/uL (4.30-5.70) Hemoglobin 9.8g/dL (13.0-17.5) Hematocrit 29.5% (39.0-53.0) Mean Corpuscular Volume 87fL (79-100) Mean Corpuscular Hemoglobin 29pg (25-35) Mean Corpuscular Hemoglobin Concent 33g/dL (31-37) Red Cell Distribution Width 14.2% (11.5-14.5) Platelet Count 239x10^3/uL (140-400) Neutrophils (%) (Auto) 69% (31-73) Lymphocytes (%) (Auto) 17% (24-48) Monocytes (%) (Auto) 11% (0-9) Eosinophils (%) (Auto) 3% (0-3) Basophils (%) (Auto) 1% (0-3) Neutrophils # (Auto) 7.3x10^3uL (1.8-7.7) Lymphocytes # (Auto) 1.8x10^3/uL (1.0-4.8) Monocytes # (Auto) 1.2x10^3/uL (0.0-1.1) Eosinophils # (Auto) 0.3x10^3/uL (0.0-0.7) Basophils # (Auto) 0.1x10^3/uL (0.0-0.2) Sodium Level 143mmol/L (136-145) Potassium Level 4.7mmol/L (3.5-5.1) Chloride Level 106mmol/L (98-107) Carbon Dioxide Level 24mmol/L (21-32) Anion Gap 13 (6-14) Blood Urea Nitrogen 75mg/dL (8-26) Creatinine 2.2mg/dL (0.7-1.3) Estimated GFR (Cockcroft-Gault) 29.9 Glucose Level 148mg/dL (70-99) Calcium Level 9.4mg/dL (8.5-10.1) Glucose (Fingerstick) 156mg/dL (70-99) Medications Current Medications Oxycodone/ Acetaminophen (Percocet 5/325) 2 tab 1X ONCE PO Last administered on 05/09/16 18:30; Start 05/09/16 at 18:30; Stop 05/09/16 at 18:33; Status DC Ondansetron HCl (Zofran) 4 mg PRN Q8HRS PRN IV NAUSEA/VOMITING; Start 05/09/16 at 21:45; Stop 05/10/16 at 21:44; Status DC Acetaminophen (Tylenol) 650 mg PRN Q4HRS PRN PO FEVER; Start 05/09/16 at 21:45; Stop 05/10/16 at 21:44; Status DC Oxycodone HCl (Roxicodone) 10 mg PRN Q4HRS PRN PO SEVERE PAIN; Start 05/09/16 at 21:45 Insulin Aspart (Novolog) 0-7 UNITS TIDWMEALS SQ Last administered on 05/13/16 08:24; Start 05/10/16 at 08:00 Dextrose 12.5 gm PRN Q15MIN PRN IV SEE COMMENTS; Start 05/09/16 at 21:45 Diphenhydramine HCl (Benadryl) 25 mg 1X ONCE PO Last administered on 05/09/16 23:38; Start 05/09/16 at 23:45; Stop 05/09/16 at 23:46; Status DC Pneumococcal Polyvalent Vaccine (Pneumovax 23) 0.5 ml ONCE ONCE VAX IM Last administered on 05/10/16 08:13; Start 05/10/16 at 09:00; Stop 05/10/16 at 09:01; Status DC Hydralazine HCl (Apresoline) 10 mg PRN Q4HRS PRN IVP ELEVATED BP, SEE COMMENTS Last administered on 05/10/16 12:23; Start 05/10/16 at 02:00 Methylprednisolone Acetate (Depo-Medrol 80mg Vial) 80 mg 1X ONCE IM Last administered on 05/10/16 10:30; Start 05/10/16 at 10:30; Stop 05/10/16 at 10:31; Status DC Bupivacaine HCl (Sensorcaine-Mpf 0.25%) 10 ml 1X ONCE IJ Last administered on 05/10/16 10:30; Start 05/10/16 at 10:30; Stop 05/10/16 at 10:31; Status DC Bisacodyl (Dulcolax Tab) 10 mg DAILY PO Last administered on 05/13/16 08:15; Start 05/10/16 at 10:30 Senna/Docusate Sodium (Senna Plus) 1 tab BID PO Last administered on 05/12/16 08:20; Start 05/10/16 at 10:30 Aspirin (Jacquelin Aspirin) 325 mg DAILY PO Last administered on 05/13/16 08:15; Start 05/10/16 at 15:00 Atorvastatin Calcium (Lipitor) 20 mg DAILY PO Last administered on 05/13/16 08: 18; Start 05/10/16 at 15:00 Bupropion HCl (Wellbutrin Sr) 150 mg BID PO Last administered on 05/13/16 08:16 ; Start 05/10/16 at 15:00 Vitamin D (Vitamin D3) 2,000 unit DAILY PO Last administered on 05/13/16 08:17 ; Start 05/10/16 at 15:00 Furosemide (Lasix) 40 mg BID94 PO Last administered on 05/13/16 08:19; Start at 16:00 Gabapentin (Neurontin) 200 mg BIDWBKFT/AVE PO Last administered on 05/13/16 08: 20; Start 05/10/16 at 15:00 Gabapentin (Neurontin) 300 mg HS PO Last administered on 05/12/16 20:58; Start 05/10/16 at 21:00 Hydralazine HCl (Apresoline) 25 mg TID PO Last administered on 05/13/16 08:19; Start 05/10/16 at 14:00 Insulin Aspart (Novolog) 20 units TIDWMEALS SQ ; Start 05/10/16 at 17:00; Status Cancel Insulin Aspart (Novolog) 30 units TIDWMEALS SQ Last administered on 05/13/16 08 :27; Start 05/10/16 at 17:00 Lisinopril (Prinivil) 40 mg DAILY PO Last administered on 05/13/16 08:18; Start 05/10/16 at 15:00 Nystatin (Nystop) 1 ritu DAILY TP Last administered on 05/13/16 08:21; Start 05/10/16 at 15:00 Pantoprazole Sodium (Protonix) 40 mg DAILYAC PO Last administered on 05/13/16 08:20; Start 05/10/16 at 15:00 Senna/Docusate Sodium (Senna Plus) 1 tab BID PO ; Start 05/10/16 at 21:00; Status UNV Carvedilol (Coreg) 25 mg BIDWMEALS PO Last administered on 05/13/16 08:16; Start 05/10/16 at 17:00 Diphenhydramine HCl (Benadryl) 25 mg PRN Q6HRS PRN PO ALLERGIES Last administered on 05/10/16 21:28; Start 05/10/16 at 14:15 Fluticasone Propionate (Flonase) 2 spray DAILY NS Last administered on 08:21; Start 05/10/16 at 15:00 Non-Formulary Medication 2 each DAILY PO ; Start 05/11/16 at 09:00; Status UNV Insulin Detemir (Levemir) 45 units QHS SQ Last administered on 05/12/16 21:13; Start 05/10/16 at 21:00 Lactobacillus Acidophilus (Bacid, Asiya-Bid) 1 tab BIDWMEALS PO Last administered on 05/13/16 08:15; Start 05/10/16 at 17:00 Zinc Oxide 1 ritu BID TP Last administered on 05/13/16 08:21; Start 05/10/16 at 15:00 Enoxaparin Sodium (Lovenox 60mg Syringe) 60 mg Q12HR SQ Last administered on 08:13; Start 05/10/16 at 21:00 Polysaccharide Iron Complex (Niferex 150) 150 mg DAILY PO Last administered on 05/13/16 08:20; Start 05/10/16 at 18:00 Neomycin/ Polymyxin/ Bacitracin (Triple Antibiotic Ointment) 1 pkt BID TP Last administered on 05/13/16 08:17; Start 05/11/16 at 09:00 Diphenhydramine HCl (Benadryl) 50 mg PRN QHS PRN PO INSOMNIA; Start 05/12/16 at 15:15 Active Scripts Active Reported Novolog Flexpen (Insulin Aspart) 100 Unit/1 Ml Insuln.pen 30 SQ TIDWMEALS Aspirin 325 Mg Tablet 0.5 Tab PO DAILY Senna-S Tablet (Sennosides/Docusate Sodium) 1 Each Tablet 1 Each PO BID Nyamyc (Nystatin) 15 Gm Powder 15 Gm TP DAILY Culturelle (Lactobacillus Rhamnosus Gg) 1 Each Capsule 1 Each PO BIDWMEALS Lantus Solostar (Insulin Glargine,Hum.rec.anlog) 100 Unit/1 Ml Insuln.pen 45 Unit SQ QHS Hydralazine Hcl 25 Mg Tablet 2 Tab PO TID Cvs Glucosamine-Chondr Tablet (Glucosamine Hcl/Chondr [place] A Na) 1 Each Tablet 2 Each PO DAILY Gabapentin 300 Mg Capsule 300 Mg PO HS Gabapentin 100 Mg Capsule 200 Mg PO BIDWBKFT/AVE Flonase Allergy Relief (Fluticasone Propionate) 9.9 Ml [place].susp 2 Sprays NS DAILY Elta Seal Moisture Barrier (Zinc Oxide) 114 Gm Cream..g. 114 Gm TP BID Diphenhydramine Hcl 50 Mg Capsule 25 Mg PO Q6HRS PRN Clindamycin Hcl 300 Mg Capsule 300 Mg PO QID Vitamin D3 (Cholecalciferol (Vitamin D3)) 1,000 Unit Tablet 2,000 Unit PO DAILY Atorvastatin Calcium 20 Mg Tablet DAILY Venlafaxine Hcl Er (Venlafaxine Hcl) 150 Mg Cap.er.24h DAILY Furosemide 20 Mg Tablet 40 Mg BID Lisinopril 40 Mg Tablet 40 DAILY Carvedilol 25 Mg Tablet 25 BID Pantoprazole Sodium 40 Mg Tablet.dr DAILY Bupropion Hcl Sr (Bupropion Hcl) 150 Mg Tablet.er 150 BID Vitals/I & O Vital Sign - Last 24 Hours 05/12/16 05/12/16 05/12/16 05/12/16 11:00 11:00 15:00 15:13 Temp 98.0 98.4 98.0 98.4 Pulse 80 85 85 Resp 20 20 B/P 136/79 118/54 118/54 Pulse Ox 98 95 O2 Delivery Room Air Room Air 05/12/16 05/12/16 05/12/16 05/12/16 17:38 19:00 20:00 20:59 Temp 99.1 99.1 Pulse 85 87 84 Resp 20 B/P 118/54 136/64 153/47 Pulse Ox 95 O2 Delivery Room Air Room Air 05/12/16 05/13/16 05/13/16 05/13/16 23:00 03:00 07:00 08:00 Temp 98.1 96.6 96.3 98.1 96.6 96.3 Pulse 80 78 85 Resp 20 20 20 B/P 134/64 128/56 157/44 Pulse Ox 93 94 97 O2 Delivery Room Air Room Air Room Air Room Air 05/13/16 05/13/16 05/13/16 08:16 08:18 08:19 Pulse 85 85 85 B/P 157/44 157/44 157/44 Intake and Output 05/12/16 05/12/16 05/13/16 15:00 23:00 07:00 Intake Total 460 ml 800 ml 480 ml Balance 460 ml 800 ml 480 ml FAUSTO METCALF MD May 13, 2016 09:43
[2016-05-13 10:46] VITALS: BP_SYST 126; BP_SYST 137; BP_DIAS 32; BP_DIAS 34
--- NOTE | 2016-05-13 11:06 | CONS ---
DATE OF CONSULTATION: 05/12/2016 ATTENDING PHYSICIAN: Dr. Calderon. CONSULTING PHYSICIAN: Dr. Christina. REASON FOR CONSULTATION: The patient is seen in pulmonary consultation at the request of Dr. Gifford for sleep apnea. HISTORY OF PRESENT ILLNESS: The patient is a 70-year-old who has been diagnosed with sleep apnea, initially started with CPAP, is currently on BiPAP. He is wearing a BiPAP unit on a nightly basis, lately he has been having some difficulty mainly falling asleep. He is in the hospital now. He does not have his unit. He is having difficulty with excessive daytime sleepiness. I was asked to see him in consultation. PAST MEDICAL HISTORY: Type 2 diabetes, hypertension, renal failure, morbid obesity. PAST SURGICAL HISTORY: Left transmetatarsal amputation, right shoulder surgery. REVIEW OF SYSTEMS: As indicated above, otherwise 10-point system was reviewed and negative. PHYSICAL EXAMINATION: GENERAL: Morbid obese individual, body mass index of this 56.2. No respiratory distress. NECK: Jugular venous distention could not be assessed secondary to body habitus. CHEST: Full expansion. LUNGS: Adequate airway flow, no wheezes. CARDIOVASCULAR: Regular rate and rhythm with S1, S2, no S3. ABDOMEN: Soft, nontender, nondistended, obese. EXTREMITIES: Evidence of peripheral vascular disease. LABORATORY DATA: Arterial blood gas 7.36, pCO2 of 43, pO2 112. Electrolytes were noted. White count was normal. IMPRESSION: 1. Obstructive sleep apnea. The patient failed CPAP, currently on BiPAP. 2. Insomnia. 3. Chronic kidney disease. 4. Right knee degenerative joint disease. 5. Morbid obesity. PLAN: 1. The patient will start utilizing home BiPAP: 2. Benadryl p.r.n. at bedtime. 3. Once discharged, we will discuss on the possibility of having the patient follow up in the office. I do appreciate the privilege in sharing in his care. TIMMY CHRISTINA MD DR: EDGAR/domitila JOB#: [id number] / [id number]
--- NOTE | 2016-05-13 12:35 | PDOC ---
PULMONARY PROGRESS NOTES Subjective no complain Vitals Vital Signs Date Time Temp Pulse Resp B/P Pulse Ox O2 Delivery O2 Flow Rate FiO2 05/13/16 10:46 137/34 05/13/16 10:46 97.4 81 20 99 Room Air 97.4 General: Alert, No acute distress Lungs: Clear Cardiovascular: S1 Abdomen: Soft, Other (obese) Neuro Exam: Alert Extremities: Other (soft cast in right leg) Labs Laboratory Tests Test 05/11/16 17:00 05/11/16 20:43 05/12/16 02:10 05/12/16 04:10 Glucose (Fingerstick) 129mg/dL (70-99) 111mg/dL (70-99) 160mg/dL (70-99) White Blood Count 7.9x10^3/uL (4.0-11.0) Red Blood Count 3.38x10^6/uL (4.30-5.70) Hemoglobin 9.9g/dL (13.0-17.5) Hematocrit 30.6% (39.0-53.0) Mean Corpuscular Volume 90fL (79-100) Mean Corpuscular Hemoglobin 29pg (25-35) Mean Corpuscular Hemoglobin Concent 32g/dL (31-37) Red Cell Distribution Width 14.1% (11.5-14.5) Platelet Count 241x10^3/uL (140-400) Neutrophils (%) (Auto) 65% (31-73) Lymphocytes (%) (Auto) 19% (24-48) Monocytes (%) (Auto) 11% (0-9) Eosinophils (%) (Auto) 4% (0-3) Basophils (%) (Auto) 1% (0-3) Neutrophils # (Auto) 5.1x10^3uL (1.8-7.7) Lymphocytes # (Auto) 1.5x10^3/uL (1.0-4.8) Monocytes # (Auto) 0.9x10^3/uL (0.0-1.1) Eosinophils # (Auto) 0.3x10^3/uL (0.0-0.7) Basophils # (Auto) 0.1x10^3/uL (0.0-0.2) Sodium Level 142mmol/L (136-145) Potassium Level 5.6mmol/L (3.5-5.1) Chloride Level 106mmol/L (98-107) Carbon Dioxide Level 24mmol/L (21-32) Anion Gap 12 (6-14) Blood Urea Nitrogen 63mg/dL (8-26) Creatinine 2.3mg/dL (0.7-1.3) Estimated GFR (Cockcroft-Gault) 28.4 Glucose Level 193mg/dL (70-99) Calcium Level 9.4mg/dL (8.5-10.1) Test 05/12/16 07:08 05/12/16 11:59 05/12/16 13:30 05/12/16 17:09 Glucose (Fingerstick) 208mg/dL (70-99) 175mg/dL (70-99) 116mg/dL (70-99) Urine Collection Type Unknown Urine Color Yellow Urine Clarity Clear Urine pH 5.0 Urine Specific [place] 1.015 Urine Protein Negativemg/dL (NEG-TRACE) Urine Glucose (UA) Negativemg/dL (NEG) Urine Ketones (Stick) Negativemg/dL (NEG) Urine Blood Negative (NEG) Urine Nitrite Negative (NEG) Urine Bilirubin Negative (NEG) Urine Urobilinogen Dipstick 0.2mg/dL (0.2 mg/dL) Urine Leukocyte Esterase Negative (NEG) Urine RBC 0/HPF (0-2) Urine WBC Occ/HPF (0-4) Urine Squamous Epithelial Cells Occ/LPF Urine Bacteria Few/HPF (0-FEW) Urine Hyaline Casts Few/HPF Urine Mucus Slight/LPF Test 05/12/16 20:54 05/13/16 05:30 05/13/16 07:56 05/13/16 11:28 Glucose (Fingerstick) 137mg/dL (70-99) 156mg/dL (70-99) 207mg/dL (70-99) White Blood Count 10.7x10^3/uL (4.0-11.0) Red Blood Count 3.38x10^6/uL (4.30-5.70) Hemoglobin 9.8g/dL (13.0-17.5) Hematocrit 29.5% (39.0-53.0) Mean Corpuscular Volume 87fL (79-100) Mean Corpuscular Hemoglobin 29pg (25-35) Mean Corpuscular Hemoglobin Concent 33g/dL (31-37) Red Cell Distribution Width 14.2% (11.5-14.5) Platelet Count 239x10^3/uL (140-400) Neutrophils (%) (Auto) 69% (31-73) Lymphocytes (%) (Auto) 17% (24-48) Monocytes (%) (Auto) 11% (0-9) Eosinophils (%) (Auto) 3% (0-3) Basophils (%) (Auto) 1% (0-3) Neutrophils # (Auto) 7.3x10^3uL (1.8-7.7) Lymphocytes # (Auto) 1.8x10^3/uL (1.0-4.8) Monocytes # (Auto) 1.2x10^3/uL (0.0-1.1) Eosinophils # (Auto) 0.3x10^3/uL (0.0-0.7) Basophils # (Auto) 0.1x10^3/uL (0.0-0.2) Sodium Level 143mmol/L (136-145) Potassium Level 4.7mmol/L (3.5-5.1) Chloride Level 106mmol/L (98-107) Carbon Dioxide Level 24mmol/L (21-32) Anion Gap 13 (6-14) Blood Urea Nitrogen 75mg/dL (8-26) Creatinine 2.2mg/dL (0.7-1.3) Estimated GFR (Cockcroft-Gault) 29.9 Glucose Level 148mg/dL (70-99) Calcium Level 9.4mg/dL (8.5-10.1) Laboratory Tests Test 05/12/16 13:30 05/12/16 17:09 05/12/16 20:54 05/13/16 05:30 Urine Collection Type Unknown Urine Color Yellow Urine Clarity Clear Urine pH 5.0 Urine Specific [place] 1.015 Urine Protein Negativemg/dL (NEG-TRACE) Urine Glucose (UA) Negativemg/dL (NEG) Urine Ketones (Stick) Negativemg/dL (NEG) Urine Blood Negative (NEG) Urine Nitrite Negative (NEG) Urine Bilirubin Negative (NEG) Urine Urobilinogen Dipstick 0.2mg/dL (0.2 mg/dL) Urine Leukocyte Esterase Negative (NEG) Urine RBC 0/HPF (0-2) Urine WBC Occ/HPF (0-4) Urine Squamous Epithelial Cells Occ/LPF Urine Bacteria Few/HPF (0-FEW) Urine Hyaline Casts Few/HPF Urine Mucus Slight/LPF Glucose (Fingerstick) 116mg/dL (70-99) 137mg/dL (70-99) White Blood Count 10.7x10^3/uL (4.0-11.0) Red Blood Count 3.38x10^6/uL (4.30-5.70) Hemoglobin 9.8g/dL (13.0-17.5) Hematocrit 29.5% (39.0-53.0) Mean Corpuscular Volume 87fL (79-100) Mean Corpuscular Hemoglobin 29pg (25-35) Mean Corpuscular Hemoglobin Concent 33g/dL (31-37) Red Cell Distribution Width 14.2% (11.5-14.5) Platelet Count 239x10^3/uL (140-400) Neutrophils (%) (Auto) 69% (31-73) Lymphocytes (%) (Auto) 17% (24-48) Monocytes (%) (Auto) 11% (0-9) Eosinophils (%) (Auto) 3% (0-3) Basophils (%) (Auto) 1% (0-3) Neutrophils # (Auto) 7.3x10^3uL (1.8-7.7) Lymphocytes # (Auto) 1.8x10^3/uL (1.0-4.8) Monocytes # (Auto) 1.2x10^3/uL (0.0-1.1) Eosinophils # (Auto) 0.3x10^3/uL (0.0-0.7) Basophils # (Auto) 0.1x10^3/uL (0.0-0.2) Sodium Level 143mmol/L (136-145) Potassium Level 4.7mmol/L (3.5-5.1) Chloride Level 106mmol/L (98-107) Carbon Dioxide Level 24mmol/L (21-32) Anion Gap 13 (6-14) Blood Urea Nitrogen 75mg/dL (8-26) Creatinine 2.2mg/dL (0.7-1.3) Estimated GFR (Cockcroft-Gault) 29.9 Glucose Level 148mg/dL (70-99) Calcium Level 9.4mg/dL (8.5-10.1) Test 05/13/16 07:56 05/13/16 11:28 Glucose (Fingerstick) 156mg/dL (70-99) 207mg/dL (70-99) Medications Active Scripts Medications Dose Route/Sig Days Date Category Novolog Flexpen (Insulin Aspart) 100 Unit/1 Ml Insuln.pen 30 SQ TIDWMEALS 05/09/16 Reported Aspirin 325 Mg Tablet 0.5 Tab PO DAILY 10/25/15 Reported Senna-S Tablet (Sennosides/Docusate Sodium) 1 Each Tablet 1 Each PO BID 10/25/15 Reported Nyamyc (Nystatin) 15 Gm Powder 15 Gm TP DAILY 10/25/15 Reported Culturelle (Lactobacillus Rhamnosus Gg) 1 Each Capsule 1 Each PO BIDWMEALS 10/25/15 Reported Lantus Solostar (Insulin Glargine,Hum.rec.anlog) 100 Unit/1 Ml Insuln.pen 45 Unit SQ QHS 10/25/15 Reported Hydralazine Hcl 25 Mg Tablet 2 Tab PO TID 10/25/15 Reported [facility]vs Glucosamine-Chondr Tablet (Glucosamine Hcl/Chondr [place] A Na) 1 Each Tablet 2 Each PO DAILY 10/25/15 Reported Gabapentin 300 Mg Capsule 300 Mg PO HS 10/25/15 Reported Gabapentin 100 Mg Capsule 200 Mg PO BIDWBKFT/AVE 10/25/15 Reported Flonase Allergy Relief (Fluticasone Propionate) 9.9 Ml [place].susp 2 Sprays NS DAILY 10/25/15 Reported Elta Seal Moisture Barrier (Zinc Oxide) 114 Gm Cream..g. 114 Gm TP BID 10/25/15 Reported Diphenhydramine Hcl 50 Mg Capsule 25 Mg PO Q6HRS PRN 10/25/15 Reported Clindamycin Hcl 300 Mg Capsule 300 Mg PO QID 10/25/15 Reported Vitamin D3 (Cholecalciferol (Vitamin D3)) 1,000 Unit Tablet 2,000 Unit PO DAILY 10/25/15 Reported Atorvastatin Calcium 20 Mg Tablet DAILY 10/25/15 Reported Venlafaxine Hcl Er (Venlafaxine Hcl) 150 Mg Cap.er.24h DAILY 10/25/15 Reported Furosemide 20 Mg Tablet 40 Mg BID 10/25/15 Reported Lisinopril 40 Mg Tablet 40 DAILY 10/25/15 Reported Carvedilol 25 Mg Tablet 25 BID 10/25/15 Reported Pantoprazole Sodium 40 Mg Tablet.dr DAILY 10/25/15 Reported Bupropion Hcl Sr (Bupropion Hcl) 150 Mg Tablet.er 150 BID 10/25/15 Reported Impression . 1. Obstructive sleep apnea. patient failed CPAP, currently on BiPAP. 2. Insomnia. 3. Chronic kidney disease. 4. Right knee degenerative joint disease. 5. Morbid obesity. Plan . 1. The patient will start utilizing home BiPAP: 2. Benadryl p.r.n. at bedtime. 3. Once discharged, we will discuss on the possibility of having the patient follow up in the office. 4. will see ELY Mitchell MD May 13, 2016 12:34
[2016-05-13] MEDS ORDERED: OXYC5TAB PO (13:21)
--- NOTE | 2016-05-13 13:25 | PDOC3 ---
Discharge Summary [facility] Date of Admission: May 09, 2016 Discharge Date: May 13, 2016 Admitting Diagnosis - Acute pain in right lower extremity 2/2 OA likely - S/p Trans Metatarsal left foot amputation - Diabetes - CAD - CHF - HTN morbid obesity Problems: Final Diagnosis Problems Medical Problems: (1) Acute pain of right lower extremity Status: Acute (2) Acute pain of right lower extremity Status: Acute (3) Unable to ambulate Status: Acute (4) Unable to ambulate Status: Acute CONSULTS dr. Jamaal larkin Brief Hospital Course Mr. Herrera is a 70 old M, comes here for bl lower ext pain, especially right knee pain, better with steroid injection. pt use bipap at home. dc home with HH. dc time 35min. General: Alert, Oriented X3, Cooperative, No acute distress Lungs: Clear Abdomen: Soft, No tenderness Extremities: Other ( trans metatarsal amputation of left foot) Skin: Other (bruising in both lower extermities,) Problems: Disposition home CONDITION AT DISCHARGE: Improved Diet regular Scheduled Aspirin (Aspirin) 0.5 TAB PO DAILY (Reported) Atorvastatin Calcium (Atorvastatin Calcium) DAILY (Reported) Bupropion Hcl (Bupropion Hcl Sr) 150 BID (Reported) Carvedilol (Carvedilol) 25 BID (Reported) Cholecalciferol (Vitamin D3) (Vitamin D3) 2,000 UNIT PO DAILY (Reported) Clindamycin Hcl (Clindamycin Hcl) 300 MG PO QID (Reported) Fluticasone Propionate (Flonase Allergy Relief) 2 SPRAYS NS DAILY (Reported) Furosemide (Furosemide) 40 MG BID (Reported) Gabapentin (Gabapentin) 200 MG PO BIDWBKFT/AVE (Reported) Gabapentin (Gabapentin) 300 MG PO HS (Reported) Glucosamine Hcl/Chondr [place] A Na (Cvs Glucosamine-Chondr Tablet) 2 EACH PO DAILY ( Reported) Hydralazine Hcl (Hydralazine Hcl) 2 TAB PO TID (Reported) Insulin Aspart (Novolog Flexpen) 30 SQ TIDWMEALS (Reported) Insulin Glargine,Hum.rec.anlog (Lantus Solostar) 45 UNIT SQ QHS (Reported) Lactobacillus Rhamnosus Gg (Culturelle) 1 EACH PO BIDWMEALS (Reported) Lisinopril (Lisinopril) 40 DAILY (Reported) Nystatin (Nyamyc) 15 GM TP DAILY (Reported) Pantoprazole Sodium (Pantoprazole Sodium) DAILY (Reported) Sennosides/Docusate Sodium (Senna-S Tablet) 1 EACH PO BID (Reported) Venlafaxine Hcl (Venlafaxine Hcl Er) DAILY (Reported) Zinc Oxide (Elta Seal Moisture Barrier) 114 GM TP BID (Reported) Scheduled PRN Diphenhydramine Hcl (Diphenhydramine Hcl) 25 MG PO Q6HRS PRN PRN ALLERGIES ( Reported) Discontinued Medications Insulin Aspart (Novolog Flexpen) 20 UNIT SQ TIDWMEALS (Reported) Discontinued Reason: NEW ORDER Follow Up pcp in 2 weeks CASI WONG MD May 13, 2016 13:25
[2016-05-13 15:00] VITALS: BP 144/57
[2016-05-13 17:53] VITALS: BP 144/57
--- NOTE | 2016-05-15 15:18 | PATHOLOGY ---
PATHOLOGY REPORT * * * * * * * * FINAL DIAGNOSIS: Skin, left knee, perilesional, direct immunofluorescence: - Staining of scattered cytoid bodies with multiple immunoreactants. Negative for an immunobullous process, connective tissue disease or vasculitis. (SAS:[facility]; d/t: 05/15/2016) REPORT ELECTRONICALLY SIGNED BY: Rabia Loya M.D., Dermatopathologist DATE/TIME: 05/15/2016 15:17 * * * * * * * * MICROSCOPIC DESCRIPTION: Direct immunofluorescence (appropriate positive controls performed): IgG: occasional 2+ cytoid bodies; IgA: 2+ cytoid bodies; IgM: 2+ cytoid bodies; C3: 1+ cytoid bodies; Fibrinogen: negative. GROSS PATHOLOGY: Received in Alexandro's solution labeled "Gianfranco Herrera," is a punch biopsy measuring 0.3 x 0.3 x 0.3 cm in maximum dimensions. The epidermal surface is white-green, wrinkled, and granular. The specimen is entirely submitted in cassette A0, for direct immunofluorescent studies. (TTL; 05/13/2016) INITIAL CPT CODE(S): A; 08030, 23652, 79379, 83448, 22150 Professional services performed by [facility], [address] [place] [address]. Technical services performed by [facility] at [address] [place] [address]. SPECIMEN(S) RECEIVED: A.3mm punch skin CLINICAL HISTORY: r/o dermatitis herpetiformis??, itchy elbows and knees PATIENT: LACI HERRERA /AGE: 6 1945 (Age: 70) PATIENT #: [id number] ALT CASE #: SPECIMEN COLLECTION DATE: 05/10/2016 SPECIMEN RECEIVED DATE: 05/13/2016 [facility] - [address] [place] [address] - PHONE: [phone] * * * END OF REPORT * * *
== END 2016-05-13 18:21 | disposition home health service (06) | DRG 554 ==
LOC: ER 17:42 → 5 NORTH 21:38 → OBSVTOIN 21:38
PROVIDERS: ADMIT Internal Medicine; ATTEND Internal Medicine
PROC: 0HBLXZX Excision of Left Lower Leg Skin, External Approach, Diagnostic (ICD-10-PCS; principal; 2016-05-09)
PROC: 3E0U33Z Introduction of Anti-inflammatory into Joints, Percutaneous Approach (ICD-10-PCS; 2016-05-09)
PROC: 3E0U3BZ Introduction of Anesthetic Agent into Joints, Percutaneous Approach (ICD-10-PCS; 2016-05-09)
DX: M17.0 Bilateral primary osteoarthritis of knee (principal); I13.0 Hypertensive heart and chronic kidney disease with heart failure and stage 1 through stage 4 chronic kidney disease, or unspecified chronic kidney disease; Z68.43 Body mass index [BMI] 50.0-59.9, adult; N17.9 Acute kidney failure, unspecified; E11.51 Type 2 diabetes mellitus with diabetic peripheral angiopathy without gangrene; I87.2 Venous insufficiency (chronic) (peripheral); E11.22 Type 2 diabetes mellitus with diabetic chronic kidney disease; E11.65 Type 2 diabetes mellitus with hyperglycemia; E66.01 Morbid (severe) obesity due to excess calories; F32.9 Major depressive disorder, single episode, unspecified; N18.9 Chronic kidney disease, unspecified; G47.33 Obstructive sleep apnea (adult) (pediatric); E11.42 Type 2 diabetes mellitus with diabetic polyneuropathy; G89.29 Other chronic pain; I25.10 Atherosclerotic heart disease of native coronary artery without angina pectoris; I50.9 Heart failure, unspecified; K21.9 Gastro-esophageal reflux disease without esophagitis; M16.12 Unilateral primary osteoarthritis, left hip; L29.9 Pruritus, unspecified; Z82.49 Family history of ischemic heart disease and other diseases of the circulatory system; Z79.899 Other long term (current) drug therapy; Z88.8 Allergy status to other drugs, medicaments and biological substances; Z88.1 Allergy status to other antibiotic agents
CPT/HCPCS: 36415; 36600; 71020; 73521; 73562; 73565; 80048; 81001; 82805; 82947; 85027; 85651; 88346; 90732; 93971; J0360; J1040; J1650; J1815; J3490; Q0163; 99285-25

== ENCOUNTER 2016-12-09 14:42 | Emergency (ER) | payer MEDICARE, BC ==
[~2016-12-09] VITALS: Ht 175.3 cm; Wt 178.7 kg
[~2016-12-09 14:42] MED LIST changes: -ASPI325T4 PO; +ASPI325T8 PO; +CLIN300C8 PO; -CLIN300C86 PO; +OXYC5TAB95 PO; +SENN1TAB15 PO; -SENN1TAB5 PO
[2016-12-09 15:50] VITALS: BP 153/65
[2016-12-09] MEDS ORDERED: HYDROcodone/APAP 5/325MG 1 TAB TABLET PO ONE (16:00)
--- NOTE | 2016-12-09 16:01 | PHYS DOC ---
Past Medical History Past Medical History: Diabetes-Type II, Hypertension, Renal Failure Additional Past Medical Histor: morbid obesity Past Surgical History: Other Additional Past Surgical Histo: LEFT partial foot amputation, SHOULDER SURGERY Alcohol Use: None Drug Use: None Adult General Chief Complaint Chief Complaint: LOWER EXT PAIN [facility] HPI Patient is a 71 year old male presents to the emergency department stating that last night he felt a pop in the right lower heel area and today noticed that he had a bulging area at the heel. He states he has increase pain with moving the foot and trying to stand. He has not taken anything for the pain and discomfort. Patient does have a hx of right knee pain and discomfort. Review of Systems Review of Systems Constitutional: Denies fever or chills [] Eyes: Denies change in visual acuity, redness, or eye pain [] HENT: Denies nasal congestion or sore throat [] Respiratory: Denies cough or shortness of breath [] Cardiovascular: No additional information not addressed in HPI [] GI: Denies abdominal pain, nausea, vomiting, bloody stools or diarrhea [] : Denies dysuria or hematuria [] Musculoskeletal: Denies back pain or joint pain. C/o pain and discomfort at the achilles areas Integument: Denies rash or skin lesions [] Neurologic: Denies headache, focal weakness or sensory changes [] Endocrine: Denies polyuria or polydipsia [] Current Medications Current Medications Current Medications Medications (Trade) Dose Ordered Sig/Beatrice Start Time Stop Time Status Last Admin Dose Admin Acetaminophen/ Hydrocodone Bitart (Lortab 5/325) 2 tab 1X ONCE 12/09/16 16:00 12/09/16 16:01 DC 12/09/16 16:10 2 TAB Allergies Allergies Allergies Coded Allergies Type Severity Reaction Last Updated Verified cefuroxime Allergy Intermediate 05/11/16 Yes piperacillin Adverse Reaction Intermediate RASH 10/25/15 Yes tazobactam Adverse Reaction Intermediate RASH 10/25/15 Yes zolpidem Adverse Reaction Intermediate HALLUCINATIONS 10/25/15 Yes glipizide Adverse Reaction Mild SENSITIVITY TO SUN 10/25/15 Yes Uncoded Allergies Type Severity Reaction Last Updated Verified DUST Allergy Mild SNEEZING 10/25/15 Physical Exam Physical Exam Constitutional: Well developed, well nourished, no acute distress, non-toxic appearance. [] HENT: Normocephalic, atraumatic, bilateral external ears normal, oropharynx moist, no oral exudates, nose normal. [] Eyes: PERRLA, EOMI, conjunctiva normal, no discharge. [] Neck: Normal range of motion, no tenderness, supple, no stridor. [] Cardiovascular:Heart rate regular rhythm Lungs & Thorax: no respiratory distress noted. Skin: Warm, dry, no erythema, no rash. [] Extremities: No tenderness, no cyanosis, no clubbing, ROM intact, no edema. Drew test negative however patient with increase pain and discomfort noted in the calf and achilles area. Peripheral pulses 2+ cap refill brisk < 2 seconds. Neurologic: Alert and oriented X 3, normal motor function, normal sensory function, no focal deficits noted. [] Psychologic: Affect normal, judgement normal, mood normal. [] Current Patient Data Vital Signs Vital Signs Date Time Temp Pulse Resp B/P (MAP) Pulse Ox O2 Delivery O2 Flow Rate FiO2 12/09/16 16:10 18 96 Room Air 12/09/16 15:50 99.0 102 153/65 (94) 99.0 EKG EKG [] Radiology/Procedures Radiology/Procedures [][facility] [address] [place] [address] IMAGING REPORT Signed PATIENT: LACI RASCON ACCOUNT: [id number] : 1945 LOCATION: ER AGE: 71 SEX: M EXAM STATUS: REG ER ORD. PHYSICIAN: PAPITO MASSEY APRN REASON: pain and swelling right achilles tendon PROCEDURE: EXT NON VASC RIGHT Right Achilles region ultrasound, 12/09/2016: History: Pain, injury The inferior aspect of the Achilles tendon is thickened and heterogeneous. It measures approximately 1.5 cm in AP dimension. It contains echogenic foci compatible with partial calcification. There is mild overlying subcutaneous edema. No large fluid collection is seen. IMPRESSION: Heterogeneous thickening of the Achilles tendon suggesting a partial tear versus tendinitis. MR scanning is suggested for further evaluation, if clinically indicated. DICTATED and SIGNED BY: MCKAYLA SALAZAR MD DATE: 12/09/16 0568 CC: MARCIAL MEJIA MD; PAPITO MASSEY APRN; NON,STAFF ~ Course & Med Decision Making Course & Med Decision Making Pertinent Labs and Imaging studies reviewed. (See chart for details) Radiologist identifies a partial tear as opposed to tendinitis. Patient will be placed in a posterior short leg splint with recommendations to use a walker with no weightbearing. Recommended nonsteroidal anti-inflammatories such as ibuprofen or Aleve. Recommended ice packs on 20 minutes off 20 minutes several times a day elevation as much as possible. Patient will be discharged home in stable condition. He'll be provided with orthopedic name and number to follow up within the next 3-5 days. Signs symptoms to return back to emergency parents been provided. Patient agrees with discharge instructions, treatment regimens and follow-up recommendations. Also questions and concerns have been answered at the patient's bedside. Upon evaluation of the splint and patient demonstrating walking with a walker he has increase difficulty with non weight bearing to the right leg. [] Dragon Disclaimer Dragon Disclaimer This electronic medical record was generated, in whole or in part, using a voice recognition dictation system. Departure Departure Impression: Primary Impression: Partial tear of right Achilles tendon Disposition: HOME, SELF-CARE Condition: STABLE Referrals: MARCIAL MEJIA MD (PCP) LORETTA ESPITIA MD Patient Instructions: Achilles Tendon Rupture (Partial, Incomplete), Splint Care, [id number], Walker-Brief Additional Instructions: Activity as tolerated. Posterior short leg splint is been placed for immobilization. Do not take the splint off. Do not get the splint wet. You have also been provided with a walker to help with ambulation. No weightbearing on your right leg. You may take Aleve or ibuprofen for pain and discomfort. Ice packs on 20 minutes off 20 minutes several times a day. Elevation as much as possible. Follow-up with orthopedic in the next 3-5 days. Return back to emergency department for signs and symptoms of become worse. Splinting Splinting : Location: right lower leg Hand-Made Type: orthoglass Splint: posterior short leg Pre-Proc Neuro Vasc Exam: normal Post-Proc Neuro Vasc Exam: normal Problem Qualifiers Primary Impression: Partial tear of right Achilles tendon Encounter type: initial encounter Qualified Codes: S86.011A - Strain of right Achilles tendon, initial encounter PAPITO MASSEY APRN Dec 09, 2016 16:01
--- NOTE | 2016-12-09 16:49 | RAD ---
Right Achilles region ultrasound, 12/09/2016: History: Pain, injury The inferior aspect of the Achilles tendon is thickened and heterogeneous. It measures approximately 1.5 cm in AP dimension. It contains echogenic foci compatible with partial calcification. There is mild overlying subcutaneous edema. No large fluid collection is seen. IMPRESSION: Heterogeneous thickening of the Achilles tendon suggesting a partial tear versus tendinitis. MR scanning is suggested for further evaluation, if clinically indicated.
== END 2016-12-09 17:36 | disposition home or self-care (01) ==
LOC: ER 14:42
DX: S86.011A Strain of right Achilles tendon, initial encounter (principal); E11.9 Type 2 diabetes mellitus without complications; I10 Essential (primary) hypertension; Z88.8 Allergy status to other drugs, medicaments and biological substances; Z88.6 Allergy status to analgesic agent; X58.XXXA Exposure to other specified factors, initial encounter; Y93.9 Activity, unspecified; Y92.89 Other specified places as the place of occurrence of the external cause; Y99.8 Other external cause status
CPT/HCPCS: 29515; 76881; 99284-25

== ENCOUNTER 2018-05-15 10:07 | Inpatient (IN) | payer BC, MEDICARE ==
[~2018-05-15] VITALS: Ht 175.3 cm; Wt 172.4 kg
[~2018-05-15 10:07] MED LIST changes: -GABA-586 PO; +GABA300C18 PO; +LISI-130; -LISI40TA; +OXYC5TAB4 PO; -OXYC5TAB95 PO
--- NOTE | 2018-05-15 10:24 | PHYS DOC ---
Past Medical History Past Medical History: Diabetes-Type II, Hypertension, Renal Failure Additional Past Medical Histor: morbid obesity Past Surgical History: Other Additional Past Surgical Histo: LEFT partial foot amputation, SHOULDER SURGERY Alcohol Use: None Drug Use: None Adult General Chief Complaint Chief Complaint: PAIN CONTROL HPI HPI Patient is a 72 year old male who presents with long-standing right knee pain. Patient was supposed to have an appointment on the first and second of this month. He miss these appointments due to illness. He cannot get into his primary care physician until middle of next month and so presents to the emergency department for this discomfort. Patient had an injection of an unknown product in his right knee last summer while at . Unfortunately that physician is no longer available to repeat the process. Patient reports some long-standing weakness in his bilateral knees. No focality to the weakness. Denies any head injury, or syncope, or focal weakness. Denies any new numbness, tingling, or paresthesias.[] Review of Systems Review of Systems Constitutional: Denies fever or chills [] Eyes: Denies change in visual acuity, redness, or eye pain [] HENT: Denies nasal congestion or sore throat [] Respiratory: Denies cough or shortness of breath [] Cardiovascular: No chest pain or palpitations[] GI: Denies abdominal pain, nausea, vomiting, bloody stools or diarrhea [] : Denies dysuria or hematuria [] Musculoskeletal: Denies back pain, see history of present illness[] Integument: Denies rash or skin lesions [] Neurologic: Denies headache, focal weakness or sensory changes [] Endocrine: Denies polyuria or polydipsia [] All other systems were reviewed and found to be within normal limits, except as documented in this note. Current Medications Current Medications Current Medications Medications (Trade) Dose Ordered Sig/Beatrice Start Time Stop Time Status Last Admin Dose Admin Ibuprofen (Motrin) 400 mg 1X ONCE 05/15/18 10:30 05/15/18 10:31 DC 05/15/18 10:58 400 MG Allergies Allergies Allergies Coded Allergies Type Severity Reaction Last Updated Verified cefuroxime Allergy Intermediate 05/11/16 Yes piperacillin Adverse Reaction Intermediate RASH 10/25/15 Yes tazobactam Adverse Reaction Intermediate RASH 10/25/15 Yes zolpidem Adverse Reaction Intermediate HALLUCINATIONS 10/25/15 Yes glipizide Adverse Reaction Mild SENSITIVITY TO SUN 10/25/15 Yes Uncoded Allergies Type Severity Reaction Last Updated Verified DUST Allergy Mild SNEEZING 10/25/15 Physical Exam Physical Exam Constitutional: Well developed, well nourished, no acute distress, non-toxic appearance. [] HENT: Normocephalic, atraumatic, bilateral external ears normal, oropharynx moist, no oral exudates, nose normal. [] Eyes: PERRLA, EOMI, conjunctiva normal, no discharge. [] Neck: Normal range of motion, no tenderness, supple, no stridor. [] Cardiovascular:Heart rate regular rhythm, no murmur [] Lungs & Thorax: Bilateral breath sounds clear to auscultation [] Abdomen: Bowel sounds normal, soft, no tenderness, no masses, no pulsatile masses. [] Skin: Warm, dry, no erythema, rash over bilateral lower extremities in patches, scaly. [] Back: No tenderness, no CVA tenderness. [] Extremities: tenderness of the right knee diffusely, full active range of motion , no varus or valgus laxity, negative drawer, negative Dereje test, no cyanosis , no clubbing, ROM intact, no edema. Left forefoot amputation Right foot, great toe has a healing ulcer at the distal are aspect. Approximately 1 cm in diameter. There is a 4 mm diameter black spot to the medial aspect of his second toe right foot[] Neurologic: Alert and oriented X 3, normal motor function, normal sensory function, no focal deficits noted. [] Psychologic: Affect normal, judgement normal, mood normal. [] Current Patient Data Vital Signs Vital Signs Date Time Temp Pulse Resp B/P (MAP) Pulse Ox O2 Delivery O2 Flow Rate FiO2 05/15/18 10:30 99 05/15/18 10:07 99.0 98 20 159/74 (102) Room Air 99.0 Lab Values Laboratory Tests Test 05/15/18 12:34 White Blood Count 13.0 x10^3/uL (4.0-11.0) H Red Blood Count 3.13 x10^6/uL (4.30-5.70) L Hemoglobin 9.0 g/dL (13.0-17.5) L Hematocrit 27.2 % (39.0-53.0) L Mean Corpuscular Volume 87 fL (79-100) Mean Corpuscular Hemoglobin 29 pg (25-35) Mean Corpuscular Hemoglobin Concent 33 g/dL (31-37) Red Cell Distribution Width 13.4 % (11.5-14.5) Platelet Count 249 x10^3/uL (140-400) Neutrophils (%) (Auto) 82 % (31-73) H Lymphocytes (%) (Auto) 7 % (24-48) L Monocytes (%) (Auto) 10 % (0-9) H Eosinophils (%) (Auto) 1 % (0-3) Basophils (%) (Auto) 0 % (0-3) Neutrophils # (Auto) 10.7 x10^3uL (1.8-7.7) H Lymphocytes # (Auto) 0.9 x10^3/uL (1.0-4.8) L Monocytes # (Auto) 1.3 x10^3/uL (0.0-1.1) H Eosinophils # (Auto) 0.1 x10^3/uL (0.0-0.7) Basophils # (Auto) 0.0 x10^3/uL (0.0-0.2) Sodium Level 134 mmol/L (136-145) L Potassium Level 4.2 mmol/L (3.5-5.1) Chloride Level 98 mmol/L (98-107) Carbon Dioxide Level 24 mmol/L (21-32) Anion Gap 12 (6-14) Blood Urea Nitrogen 52 mg/dL (8-26) H Creatinine 1.9 mg/dL (0.7-1.3) H Estimated GFR (Cockcroft-Gault) 35.2 BUN/Creatinine Ratio 27 (6-20) H Glucose Level 214 mg/dL (70-99) H Calcium Level 9.3 mg/dL (8.5-10.1) Total Bilirubin 0.6 mg/dL (0.2-1.0) Aspartate Amino Transferase (AST) 16 U/L (15-37) Alanine Aminotransferase (ALT) 21 U/L (16-63) Alkaline Phosphatase 84 U/L (46-116) Total Protein 7.6 g/dL (6.4-8.2) Albumin 2.9 g/dL (3.4-5.0) L Albumin/Globulin Ratio 0.6 (1.0-1.7) L Laboratory Tests 05/15/18 12:34 Laboratory Tests 05/15/18 12:34 EKG EKG [] Radiology/Procedures Radiology/Procedures Right knee, 3 views, 05/15/2018: HISTORY: Fall, knee pain There is moderate narrowing of the knee joint space which is worst medially with subchondral sclerosis and spurring. There is moderate spurring at the patellofemoral articulation. The lateral view is suboptimal due to patient rotation. No acute fracture or dislocation is identified. There is moderate subcutaneous edema. IMPRESSION: 1. Moderate hypertrophic degenerative change. 2. No acute bony abnormality is detected. Right foot, 3 views, 05/15/2018: HISTORY: Diabetic sores on first and second toes There is moderate patchy bony demineralization. Moderate scattered degenerative changes are present, particular at the mid foot level. No fracture or destructive bony lesion is seen. A prominent inferior calcaneal spur is present. IMPRESSION: 1. Chronic findings as described above. 2. No acute bony abnormality is detected.[] Course & Med Decision Making Course & Med Decision Making Pertinent Labs and Imaging studies reviewed. (See chart for details) Medical decision making: There is no evidence of an acute fracture or dislocation. Patient does have an elevated white count, no evidence of osteomyelitis on imaging, no gas gangrene, no evidence of diabetic ketoacidosis. ED course: Patient arrived, was placed in bed, and tolerated exam well. He was transported to and from x-ray without any complications. Given that EMS has been called multiple times for frequent falls and inability to get out of bed as well as soiling himself in bed recently, and the patient is failing home care due to weakness in his legs, consultation was made with the hospitalist service for admission to arrange for either orthopedic intervention or further home health assets.[] Dragon Disclaimer Dragon Disclaimer This electronic medical record was generated, in whole or in part, using a voice recognition dictation system. Departure Departure Impression: Primary Impression: Chronic knee pain Disposition: HOME, SELF-CARE Condition: IMPROVED Referrals: MARCIAL MEJIA MD (PCP) Follow up in 2 days ZARIA MAO II, MD Call to arrange an appointment for possible knee injection. Patient Instructions: Chronic Pain Management, Knee Pain Additional Instructions: Follow-up with your primary care physician in 2 days. Call the orthopedic physician to arrange an appointment for evaluation and treatment. Return to the ER for sitting pain or any other concerns. Scripts Meloxicam (MELOXICAM) 7.5 Mg Tablet 7.5 MG PO DAILY, #20 TAB Prov: JE BASURTO DO 05/15/18 Problem Qualifiers Primary Impression: Chronic knee pain Laterality: right Qualified Codes: M25.561 - Pain in right knee; G89.29 - Other chronic pain JE BASURTO DO May 15, 2018 10:24
[2018-05-15] MEDS ORDERED: IBUPROFEN 200 MG TABLET. PO ONE (10:30)
--- NOTE | 2018-05-15 11:15 | RAD ---
Right knee, 3 views, 05/15/2018: HISTORY: Fall, knee pain There is moderate narrowing of the knee joint space which is worst medially with subchondral sclerosis and spurring. There is moderate spurring at the patellofemoral articulation. The lateral view is suboptimal due to patient rotation. No acute fracture or dislocation is identified. There is moderate subcutaneous edema. IMPRESSION: 1. Moderate hypertrophic degenerative change. 2. No acute bony abnormality is detected. Electronically signed by: Sourav Garza MD (05/15/2018 11:12 AM) [facility]
[2018-05-15] MEDS ORDERED: MELO7.5T29 PO (12:01)
--- NOTE | 2018-05-15 12:49 | RAD ---
Right foot, 3 views, 05/15/2018: HISTORY: Diabetic sores on first and second toes There is moderate patchy bony demineralization. Moderate scattered degenerative changes are present, particular at the mid foot level. No fracture or destructive bony lesion is seen. A prominent inferior calcaneal spur is present. IMPRESSION: 1. Chronic findings as described above. 2. No acute bony abnormality is detected. Electronically signed by: Sourav Garza MD (05/15/2018 12:46 PM) [facility]
[2018-05-15 13:14] LABS: CALCIUM 9.3 mg/dL (8.5-10.1); CREATININE 1.9 mg/dL (0.7-1.3); GFR 35.2; POTASSIUM 4.2 mmol/L (3.5-5.1)
[2018-05-15 13:19] LABS: ALBUMIN 2.9 g/dL (3.4-5.0); ALBUMIN/GLOBULIN RATIO 0.6 (1.0-1.7); TOTAL BILIRUBIN 0.6 mg/dL (0.2-1.0); TOTAL PROTEIN 7.6 g/dL (6.4-8.2)
[2018-05-15 13:28] LABS: BASO % 0 % (0-3); EOS # 0.1 x10^3/uL (0.0-0.7); EOS % 1 % (0-3); HEMATOCRIT 27.2 % (39.0-53.0); LYMPH # 0.9 x10^3/uL (1.0-4.8); LYMPH % 7 % (24-48); MEAN CORPUSCULAR HEMOGLOBIN 29 pg (25-35); MEAN CORPUSCULAR HGB CONC 33 g/dL (31-37); MEAN CORPUSCULAR VOLUME 87 fL (79-100); MONO # 1.3 x10^3/uL (0.0-1.1); MONO % 10 % (0-9); NEUT # 10.7 x10^3uL (1.8-7.7); NEUT % 82 % (31-73); PLATELET COUNT 249 x10^3/uL (140-400); RED BLOOD COUNT 3.13 x10^6/uL (4.30-5.70); RED CELL DISTRIBUTION WIDTH 13.4 % (11.5-14.5)
[2018-05-15] MEDS ORDERED: LORazepam 0.5 MG TABLET PO PRN (14:15)
[2018-05-15] MEDS ORDERED: ACETAMINOPHEN 325 MG TABLET. PO PRN ×2 (14:15→14:30)
[2018-05-15] MEDS ORDERED: cloNIDine HCL 0.1 MG TABLET PO PRN (14:15)
[2018-05-15] MEDS ORDERED: ONDANSETRON PF 4 MG/2 ML VIAL. IV PRN ×2 (14:15→14:30)
[2018-05-15] MEDS ORDERED: diphenhydrAMINE HCL 25 MG CAPSULE PO PRN (14:30)
[2018-05-15] MEDS ORDERED: MORPHINE SULFATE 2 MG/ML VIAL. IV PRN (15:45)
--- NOTE | 2018-05-15 15:51 | PDOC1 ---
History and Physical Date of Admission Date of Admission May 15, 2018 Identification/Chief Complaint Chief Complaint My knees hurt and I cannot walk Problems: (1) Chronic knee pain Source Source: Chart review, Patient History of Present Illness History of Present Illness Patient is a morbidly obese 72-year-old male with past medical history of hypertension diabetes and dyslipidemia with severe osteoarthritis. Patient also has peripheral vascular disease and amputation transmetatarsal office left foot. The patient has been in his usual state of health until 2 days prior to his admission when he started noticing increased weakness. His knees have gotten very weak and painful upon ambulation, he has been seen in other facilities and recommended a bilateral knee replacement noted to address his severe osteoarthritis. The patient has been unable to have this done in unfortunately has progressed to the point that he is unable to care for himself. The patient also relates to me that over the last couple days he has been wearing tighter fitting sock that unfortunately has probably given him circulatory problems he has a ulcer over his right great toe clean base serous inguinal Lint material is draining no purulent discharge evident no evidence of erythema or the affected area either. He has a necrotic scar also on the second toe of his right foot. Patient has venous insufficiency discoloration over his bilateral lower extremities and evidence of self-inflicted trauma from scratching both legs. He summoned EMS due to his inability to care for himself and he lives at home with his was unable to lift him from the floor this morning after he scooted out of bed. He has happened on several occasions over the last couple days we have been requested to admit the patient for further evaluation Past Medical History Cardiovascular: CAD, CHF, HTN Pulmonary: No pertinent hx Renal/: Chronic renal insuff Endocrine: Diabetes Family History Family History: No Significant, Hypertension Social History ALCOHOL: none Drugs: None Current Problem List Problem List Problems Medical Problems: (1) Chronic knee pain Status: Acute Current Medications Current Medications Current Medications Medications (Trade) Dose Ordered Sig/Beatrice Start Time Stop Time Status Last Admin Dose Admin Acetaminophen (Tylenol) 650 mg PRN Q4HRS PRN 05/15/18 14:30 05/16/18 14:29 Albuterol/ Ipratropium (Duoneb) 3 ml Q4HRS 05/15/18 16:00 Aspirin (Jacquelin Aspirin) 162.5 mg DAILY 05/15/18 15:30 Atorvastatin Calcium (Lipitor) 20 mg QHS 05/15/18 21:00 Bupropion HCl (Wellbutrin Sr) 150 mg BID 05/15/18 21:00 Carvedilol (Coreg) 25 mg BIDWMEALS 05/15/18 17:00 Clonidine HCl (Catapres) 0.1 mg PRN Q6HRS PRN 05/15/18 14:15 Diphenhydramine HCl (Benadryl) 25 mg PRN Q6HRS PRN 05/15/18 14:30 Enoxaparin Sodium (Lovenox 60mg Syringe) 60 mg Q12HR 05/15/18 21:00 Fluticasone Propionate (Flonase) 2 spray DAILY 05/16/18 09:00 Furosemide (Lasix) 40 mg [id number] 05/15/18 16:00 Gabapentin (Neurontin) 300 mg HS 05/15/18 21:00 Guaifenesin (Robitussin) 200 mg PRN Q4HRS PRN 05/15/18 14:15 Hydralazine HCl (Apresoline) 50 mg TID 05/15/18 15:30 Ibuprofen (Motrin) 400 mg 1X ONCE 05/15/18 10:30 05/15/18 10:31 DC 05/15/18 10:58 400 MG Insulin Glargine (Lantus) 45 units QHS 05/15/18 21:00 Insulin Human Lispro (HumaLOG) 30 units TIDWMEALS 05/15/18 17:00 Lactobacillus Rhamnosus (Culturelle) 1 cap BID 05/15/18 21:00 Lisinopril (Prinivil) 40 mg DAILY 05/15/18 15:30 Lorazepam (Ativan) 0.5 mg PRN Q4HRS PRN 05/15/18 14:15 Meloxicam (Mobic) 7.5 mg DAILY 05/15/18 15:30 Non-Formulary Medication (Glucosamine Hcl/ Chondr [place] A Na ([facility] Glucosamine-Chondr Tablet)) 2 each DAILY 05/16/18 09:00 UNV Nystatin (Nystop) 15 ritu DAILY 05/16/18 09:00 Ondansetron HCl (Zofran) 4 mg PRN Q8HRS PRN 05/15/18 14:30 05/16/18 14:29 Oxycodone HCl (Roxicodone) 10 mg PRN Q4HRS PRN 05/15/18 14:15 Pantoprazole Sodium (Protonix) 40 mg DAILYAC 05/15/18 15:30 Senna/Docusate Sodium (Senna Plus) 1 tab BID 05/15/18 21:00 Vitamin D (Vitamin D3) 2,000 unit DAILY 05/15/18 15:30 Zinc Oxide (Zinc Oxide 20% Topical) 1 ritu BID 05/15/18 21:00 Zolpidem Tartrate (Ambien) 5 mg PRN QHS PRN 05/15/18 14:15 Allergies Allergies Allergies Coded Allergies Type Severity Reaction Last Updated Verified cefuroxime Allergy Intermediate 05/11/16 Yes piperacillin Adverse Reaction Intermediate RASH 10/25/15 Yes tazobactam Adverse Reaction Intermediate RASH 10/25/15 Yes zolpidem Adverse Reaction Intermediate HALLUCINATIONS 10/25/15 Yes glipizide Adverse Reaction Mild SENSITIVITY TO SUN 10/25/15 Yes Uncoded Allergies Type Severity Reaction Last Updated Verified DUST Allergy Mild SNEEZING 10/25/15 ROS Review of System CONSTITUTIONAL: No fever or chills EYES: No recent changes SKIN: No rash or itching CARDIOVASCULAR: No chest pain, syncope, palpitations, or edema RESPIRATORY: No SOB or cough GASTROINTESTINAL: No nausea, vomiting or abdominal pain NEUROLOGICAL: No headaches or weakness ENDOCRINE: No cold or heat intolerance GENITOURINARY: No urgency or frequency of urination MUSCULOSKELETAL: No back pain, bilateral knee pain LYMPHATICS: No enlarged lymph nodes PSYCHIATRIC: No anxiety or depression Physical Exam Physical Exam GEN.: moderate distress. Alert and oriented. HEENT: Head is normocephalic, atraumatic NECK: Supple. LUNGS: Clear to auscultation. HEART: RRR, S1, S2 present. Peripheral pulses intact ABDOMEN: Soft, nontender. Positive bowel sounds. EXTREMITIES: Without any cyanosis. Venous insufficiency hyperpigmented lesions over the anterior shins bilaterally NEUROLOGIC: Normal speech, normal tone PSYCHIATRIC: Normal affect, normal mood. SKIN: Right great toe clean base ulcer Vitals Vitals Vital Signs Date Time Temp Pulse Resp B/P (MAP) Pulse Ox O2 Delivery O2 Flow Rate FiO2 05/15/18 10:30 99 05/15/18 10:07 99.0 98 20 159/74 (102) Room Air 99.0 Labs Labs Laboratory Tests Test 05/15/18 12:34 White Blood Count 13.0 x10^3/uL (4.0-11.0) Red Blood Count 3.13 x10^6/uL (4.30-5.70) Hemoglobin 9.0 g/dL (13.0-17.5) Hematocrit 27.2 % (39.0-53.0) Mean Corpuscular Volume 87 fL (79-100) Mean Corpuscular Hemoglobin 29 pg (25-35) Mean Corpuscular Hemoglobin Concent 33 g/dL (31-37) Red Cell Distribution Width 13.4 % (11.5-14.5) Platelet Count 249 x10^3/uL (140-400) Neutrophils (%) (Auto) 82 % (31-73) Lymphocytes (%) (Auto) 7 % (24-48) Monocytes (%) (Auto) 10 % (0-9) Eosinophils (%) (Auto) 1 % (0-3) Basophils (%) (Auto) 0 % (0-3) Neutrophils # (Auto) 10.7 x10^3uL (1.8-7.7) Lymphocytes # (Auto) 0.9 x10^3/uL (1.0-4.8) Monocytes # (Auto) 1.3 x10^3/uL (0.0-1.1) Eosinophils # (Auto) 0.1 x10^3/uL (0.0-0.7) Basophils # (Auto) 0.0 x10^3/uL (0.0-0.2) Sodium Level 134 mmol/L (136-145) Potassium Level 4.2 mmol/L (3.5-5.1) Chloride Level 98 mmol/L (98-107) Carbon Dioxide Level 24 mmol/L (21-32) Anion Gap 12 (6-14) Blood Urea Nitrogen 52 mg/dL (8-26) Creatinine 1.9 mg/dL (0.7-1.3) Estimated GFR (Cockcroft-Gault) 35.2 BUN/Creatinine Ratio 27 (6-20) Glucose Level 214 mg/dL (70-99) Calcium Level 9.3 mg/dL (8.5-10.1) Total Bilirubin 0.6 mg/dL (0.2-1.0) Aspartate Amino Transf (AST/SGOT) 16 U/L (15-37) Alanine Aminotransferase (ALT/SGPT) 21 U/L (16-63) Alkaline Phosphatase 84 U/L (46-116) Total Protein 7.6 g/dL (6.4-8.2) Albumin 2.9 g/dL (3.4-5.0) Albumin/Globulin Ratio 0.6 (1.0-1.7) Laboratory Tests Test 05/15/18 12:34 White Blood Count 13.0 x10^3/uL (4.0-11.0) Red Blood Count 3.13 x10^6/uL (4.30-5.70) Hemoglobin 9.0 g/dL (13.0-17.5) Hematocrit 27.2 % (39.0-53.0) Mean Corpuscular Volume 87 fL (79-100) Mean Corpuscular Hemoglobin 29 pg (25-35) Mean Corpuscular Hemoglobin Concent 33 g/dL (31-37) Red Cell Distribution Width 13.4 % (11.5-14.5) Platelet Count 249 x10^3/uL (140-400) Neutrophils (%) (Auto) 82 % (31-73) Lymphocytes (%) (Auto) 7 % (24-48) Monocytes (%) (Auto) 10 % (0-9) Eosinophils (%) (Auto) 1 % (0-3) Basophils (%) (Auto) 0 % (0-3) Neutrophils # (Auto) 10.7 x10^3uL (1.8-7.7) Lymphocytes # (Auto) 0.9 x10^3/uL (1.0-4.8) Monocytes # (Auto) 1.3 x10^3/uL (0.0-1.1) Eosinophils # (Auto) 0.1 x10^3/uL (0.0-0.7) Basophils # (Auto) 0.0 x10^3/uL (0.0-0.2) Sodium Level 134 mmol/L (136-145) Potassium Level 4.2 mmol/L (3.5-5.1) Chloride Level 98 mmol/L (98-107) Carbon Dioxide Level 24 mmol/L (21-32) Anion Gap 12 (6-14) Blood Urea Nitrogen 52 mg/dL (8-26) Creatinine 1.9 mg/dL (0.7-1.3) Estimated GFR (Cockcroft-Gault) 35.2 BUN/Creatinine Ratio 27 (6-20) Glucose Level 214 mg/dL (70-99) Calcium Level 9.3 mg/dL (8.5-10.1) Total Bilirubin 0.6 mg/dL (0.2-1.0) Aspartate Amino Transf (AST/SGOT) 16 U/L (15-37) Alanine Aminotransferase (ALT/SGPT) 21 U/L (16-63) Alkaline Phosphatase 84 U/L (46-116) Total Protein 7.6 g/dL (6.4-8.2) Albumin 2.9 g/dL (3.4-5.0) Albumin/Globulin Ratio 0.6 (1.0-1.7) VTE Prophylaxis Ordered VTE Prophylaxis Devices: Yes VTE Pharmacological Prophylaxi: Yes Assessment/Plan Assessment/Plan Severe bilateral knee osteoarthritis Inability to care for self Morbid obesity with a BMI of 56 Impaired mobility as a consequence of the severe osteoarthritis Leukocytosis which may be reactive but in light of his multiple skin lesions cannot rule out an infection Diabetic right great toe ulcer Hyponatremia of no clinical consequence Normocytic anemia of chronic inflammation Hypertension Dyslipidemia History of diabetes mellitus type 2 insulin requiring Plan: We'll do MRI of his right foot for completion and evaluation We'll request consultation with orthopedic surgery to address bilateral knee pain Morphine for pain management Will resume his home medications We'll consult case management for discharge planning Reassess in the a.m. Further recommendations based on the clinical course DVT prophylaxis with heparin Problem Qualifiers (1) Chronic knee pain: Laterality: right Qualified Codes: M25.561 - Pain in right knee; G89.29 - Other chronic pain RAJ VANEGAS MD May 15, 2018 15:51
[2018-05-15 16:04] VITALS: BP 159/65
[2018-05-15] MEDS: IPRATRPIUM/ALBUTEROL 0.5/2.5MG 3 ML NEBU. NEB SCH ×2 (16:04→18:58)
--- NOTE | 2018-05-15 16:16 | NUR ---
Per Physician request, SW spoke with pt and in room. Pt reported he has been falling at home and it has been difficult to get out of bed. SW discussed pt might benefit from PT/OT to evaluate skilled needs. Pt reported he has not been in rehab the last 60 days. SW discussed if PT/OT recommends SNU, SW will assist in SNU placement. Pt notified insurance will need to approve SNU and SW encouraged pt to participate in PT/OT over the weekend. SW requested RN to order PT/OT eval and Tx order. Discussed with RN and Physician. Will continue to follow.
[2018-05-15] MEDS: MELOXICAM 7.5 MG TABLET PO SCH (17:32)
[2018-05-15] MEDS: FUROSEMIDE 20 MG TABLET PO SCH (17:33)
[2018-05-15] MEDS: CARVEDILOL 12.5 MG TABLET. PO SCH (17:34)
[2018-05-15] MEDS: CHOLECALCIFEROL (VITAMIN D3) 1,000 UNIT TABLET PO SCH (17:34)
[2018-05-15] MEDS: ASPIRIN 325 MG TABLET PO SCH (17:35)
[2018-05-15] MEDS: PANTOPRAZOLE 40 MG TABLET.DR. PO SCH (17:35)
[2018-05-15] MEDS: LISINOPRIL 20 MG TABLET PO SCH (17:37)
[2018-05-15] MEDS: oxyCODONE IR 5 MG TABLET PO PRN ×2 (17:41→21:12)
[2018-05-15] MEDS: guaiFENesin ORAL 200 MG/10 ML LIQUID. PO PRN ×2 (17:41→20:15)
[2018-05-15] MEDS: INSULIN LISPRO 300 UNITS/3 ML INSULN.PEN. SQ SCH (17:44)
[2018-05-15 19:00] VITALS: BP 120/57
[2018-05-15 19:04] LABS: BILIRUBIN,URINE NEGATIVE (NEG); CLARITY,URINE CLEAR; COLOR,URINE YELLOW; NITRITE,URINE NEGATIVE (NEG); PROTEIN,URINE NEGATIVE (NEG-TRACE)
[2018-05-15 19:17] LABS: HYALINE CASTS, URINE MANY /HPF; SQUAMOUS EPITHELIAL CELL,UR FEW /LPF
[2018-05-15 19:18] LABS: BACTERIA,URINE 0 /HPF (0-FEW); RBC,URINE 0 /HPF (0-2); WBC,URINE 0 /HPF (0-4)
[2018-05-15] MEDS: ZOLPIDEM 5 MG TABLET. PO PRN (20:12)
[2018-05-15] MEDS: GABAPENTIN 300 MG CAPSULE. PO SCH (20:12)
[2018-05-15] MEDS: ATORVASTATIN CALCIUM 20 MG TABLET PO SCH (20:12)
[2018-05-15] MEDS: SENNOSIDES/DOCUSATE 8.6/50MG TABLET. PO SCH (20:12)
[2018-05-15] MEDS: buPROPion SR 150 MG TABLET.SA PO SCH (20:13)
[2018-05-15] MEDS: LACTOBACILLUS RHAMNOSUS GG 1 CAPSULE. PO SCH (20:13)
[2018-05-15] MEDS: INSULIN GLARGINE 300 UNITS/3 ML INSULN.PEN. SQ SCH (20:21)
[2018-05-15] MEDS: ZINC OXIDE 20% TOPICAL OINTMENT 28GM TUBE. TP SCH (20:22)
[2018-05-15] MEDS: HEPARIN for SUB-Q USE 5,000 UNIT/ML VIAL. SQ SCH (22:00)
--- NOTE | 2018-05-15 22:05 | RAD ---
AP chest. HISTORY: Cough AP view was taken of the chest. Lungs are free of infiltrates. Heart is normal in size. There is no pleural effusion. There is a density behind the heart. An aneurysm is possible, mass is possible, a hernia is possible, the pattern was not evident on the old study from May 2016. IMPRESSION: 1. No acute infiltrates. 2. Retrocardiac density PA and lateral views or CT could be of benefit. Electronically signed by: Baldemar Garcia MD (05/15/2018 10:02 PM) [facility]
[2018-05-15 23:00] VITALS: BP 126/83
--- NOTE | 2018-05-16 02:31 | NUR ---
Report was given to Steph CORTEZ, care was taken over by this nurse at this time.
[2018-05-16 03:00] VITALS: BP 103/42
[2018-05-16] MEDS: IPRATRPIUM/ALBUTEROL 0.5/2.5MG 3 ML NEBU. NEB SCH ×6 (03:31→23:53)
[2018-05-16] MEDS: HEPARIN for SUB-Q USE 5,000 UNIT/ML VIAL. SQ SCH ×3 (05:45→21:11)
[2018-05-16 05:55] LABS: BASO % 0 % (0-3); EOS # 0.2 x10^3/uL (0.0-0.7); EOS % 2 % (0-3); HEMATOCRIT 26.8 % (39.0-53.0); HEMOGLOBIN 8.9 g/dL (13.0-17.5); LYMPH # 1.2 x10^3/uL (1.0-4.8); LYMPH % 11 % (24-48); MEAN CORPUSCULAR HEMOGLOBIN 29 pg (25-35); MEAN CORPUSCULAR HGB CONC 33 g/dL (31-37); MEAN CORPUSCULAR VOLUME 88 fL (79-100); MONO # 1.4 x10^3/uL (0.0-1.1); MONO % 13 % (0-9); NEUT # 7.9 x10^3uL (1.8-7.7); NEUT % 74 % (31-73); PLATELET COUNT 233 x10^3/uL (140-400); RED BLOOD COUNT 3.05 x10^6/uL (4.30-5.70); RED CELL DISTRIBUTION WIDTH 13.5 % (11.5-14.5); WHITE BLOOD COUNT 10.7 x10^3/uL (4.0-11.0)
[2018-05-16 06:11] LABS: ALBUMIN 2.7 g/dL (3.4-5.0); ALBUMIN/GLOBULIN RATIO 0.6 (1.0-1.7); CALCIUM 9.1 mg/dL (8.5-10.1); CREATININE 2.4 mg/dL (0.7-1.3); GFR 26.9; POTASSIUM 3.8 mmol/L (3.5-5.1); TOTAL BILIRUBIN 0.5 mg/dL (0.2-1.0); TOTAL PROTEIN 7.2 g/dL (6.4-8.2)
[2018-05-16 07:00] VITALS: BP 89/52
[2018-05-16] MEDS: INSULIN LISPRO 300 UNITS/3 ML INSULN.PEN. SQ SCH ×3 (08:00→17:22)
[2018-05-16] MEDS: FUROSEMIDE 20 MG TABLET PO SCH (08:00)
[2018-05-16] MEDS: CARVEDILOL 12.5 MG TABLET. PO SCH ×2 (08:00→17:18)
[2018-05-16] MEDS: LISINOPRIL 20 MG TABLET PO SCH (08:00)
--- NOTE | 2018-05-16 08:39 | PDOC ---
PROGRESS NOTES Chief Complaint Chief Complaint Severe bilateral knee osteoarthritis Inability to care for self Morbid obesity with a BMI of 56 Impaired mobility as a consequence of the severe osteoarthritis Leukocytosis which may be reactive but in light of his multiple skin lesions cannot rule out an infection Diabetic right great toe ulcer Hyponatremia of no clinical consequence Normocytic anemia of chronic inflammation Hypertension Dyslipidemia History of diabetes mellitus type 2 insulin requiring Plan: We'll do MRI of his right foot for completion and evaluation We'll request consultation with orthopedic surgery to address bilateral knee pain Morphine for pain management Will resume his home medications We'll consult case management for discharge planning Reassess in the a.m. Further recommendations based on the clinical course DVT prophylaxis with heparin History of Present Illness History of Present Illness Mr Herrera is a morbidly obese 72-year-old male with past medical history of hypertension diabetes and dyslipidemia with severe osteoarthritis. Patient also has peripheral vascular disease and amputation transmetatarsal left foot. The patient has been in his usual state of health until 2 days prior to his admission when he started noticing increased weakness. His knees have gotten very weak and painful upon ambulation, he has been seen in other facilities and recommended a bilateral knee replacement noted to address his severe osteoarthritis. The patient has been unable to walk recently or care for himself. The patient also relates to me that over the last couple days he has been wearing tighter fitting sock that unfortunately has probably given him circulatory problems he has a ulcer over his right great toe clean base serous material is draining no purulent discharge evident no evidence of erythema or the affected area either. He has a necrotic scar also on the second toe of his right foot. Patient has venous insufficiency discoloration over his bilateral lower extremities and evidence of self-inflicted trauma from scratching both legs. He summoned EMS due to his inability to care for himself and he lives at home with his was unable to lift him from the floor 05/15 after he scooted out of bed. He has fallen on several occasions over the last couple days with multiple bruises on his backside and bilateral legs and arms. Today still feeling weak, unable to walk. Today with Cr to 2.4 and Hb to 8.9. Some mild SOB, no CP. 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 Skilled rehab on d/c eventually Hold nephrotoxic meds Sacral and coccyx imaging for likely fracture Vitals Vitals Vital Signs Date Time Temp Pulse Resp B/P (MAP) Pulse Ox O2 Delivery O2 Flow Rate FiO2 05/16/18 03:30 Room Air 05/16/18 03:00 98.6 90 16 103/42 (62) 94 98.6 Physical Exam General: Alert, Oriented X3, Cooperative Heart: Regular rate, Normal S1, Normal S2 Lungs: Clear Abdomen: Normal bowel sounds, Soft Extremities: No clubbing, No cyanosis, Other (Tender, swollen legs) Skin: Other (Gluteal bruising) Labs LABS Laboratory Tests Test 05/15/18 12:34 05/15/18 16:35 05/15/18 18:40 05/15/18 19:56 White Blood Count 13.0 x10^3/uL (4.0-11.0) Red Blood Count 3.13 x10^6/uL (4.30-5.70) Hemoglobin 9.0 g/dL (13.0-17.5) Hematocrit 27.2 % (39.0-53.0) Mean Corpuscular Volume 87 fL (79-100) Mean Corpuscular Hemoglobin 29 pg (25-35) Mean Corpuscular Hemoglobin Concent 33 g/dL (31-37) Red Cell Distribution Width 13.4 % (11.5-14.5) Platelet Count 249 x10^3/uL (140-400) Neutrophils (%) (Auto) 82 % (31-73) Lymphocytes (%) (Auto) 7 % (24-48) Monocytes (%) (Auto) 10 % (0-9) Eosinophils (%) (Auto) 1 % (0-3) Basophils (%) (Auto) 0 % (0-3) Neutrophils # (Auto) 10.7 x10^3uL (1.8-7.7) Lymphocytes # (Auto) 0.9 x10^3/uL (1.0-4.8) Monocytes # (Auto) 1.3 x10^3/uL (0.0-1.1) Eosinophils # (Auto) 0.1 x10^3/uL (0.0-0.7) Basophils # (Auto) 0.0 x10^3/uL (0.0-0.2) Sodium Level 134 mmol/L (136-145) Potassium Level 4.2 mmol/L (3.5-5.1) Chloride Level 98 mmol/L (98-107) Carbon Dioxide Level 24 mmol/L (21-32) Anion Gap 12 (6-14) Blood Urea Nitrogen 52 mg/dL (8-26) Creatinine 1.9 mg/dL (0.7-1.3) Estimated GFR (Cockcroft-Gault) 35.2 BUN/Creatinine Ratio 27 (6-20) Glucose Level 214 mg/dL (70-99) Calcium Level 9.3 mg/dL (8.5-10.1) Total Bilirubin 0.6 mg/dL (0.2-1.0) Aspartate Amino Transf (AST/SGOT) 16 U/L (15-37) Alanine Aminotransferase (ALT/SGPT) 21 U/L (16-63) Alkaline Phosphatase 84 U/L (46-116) Total Protein 7.6 g/dL (6.4-8.2) Albumin 2.9 g/dL (3.4-5.0) Albumin/Globulin Ratio 0.6 (1.0-1.7) Glucose (Fingerstick) 181 mg/dL (70-99) 137 mg/dL (70-99) Urine Collection Type Unknown Urine Color Yellow Urine Clarity Clear Urine pH 5.0 Urine Specific [place] 1.015 Urine Protein Negative mg/dL (NEG-TRACE) Urine Glucose (UA) Negative mg/dL (NEG) Urine Ketones (Stick) Negative mg/dL (NEG) Urine Blood Negative (NEG) Urine Nitrite Negative (NEG) Urine Bilirubin Negative (NEG) Urine Urobilinogen Dipstick 1.0 mg/dL (0.2 mg/dL) Urine Leukocyte Esterase Negative (NEG) Urine RBC 0 /HPF (0-2) Urine WBC 0 /HPF (0-4) Urine Squamous Epithelial Cells Few /LPF Urine Bacteria 0 /HPF (0-FEW) Urine Hyaline Casts Many /HPF Urine Mucus Mod /LPF Test 05/16/18 04:55 White Blood Count 10.7 x10^3/uL (4.0-11.0) Red Blood Count 3.05 x10^6/uL (4.30-5.70) Hemoglobin 8.9 g/dL (13.0-17.5) Hematocrit 26.8 % (39.0-53.0) Mean Corpuscular Volume 88 fL (79-100) Mean Corpuscular Hemoglobin 29 pg (25-35) Mean Corpuscular Hemoglobin Concent 33 g/dL (31-37) Red Cell Distribution Width 13.5 % (11.5-14.5) Platelet Count 233 x10^3/uL (140-400) Neutrophils (%) (Auto) 74 % (31-73) Lymphocytes (%) (Auto) 11 % (24-48) Monocytes (%) (Auto) 13 % (0-9) Eosinophils (%) (Auto) 2 % (0-3) Basophils (%) (Auto) 0 % (0-3) Neutrophils # (Auto) 7.9 x10^3uL (1.8-7.7) Lymphocytes # (Auto) 1.2 x10^3/uL (1.0-4.8) Monocytes # (Auto) 1.4 x10^3/uL (0.0-1.1) Eosinophils # (Auto) 0.2 x10^3/uL (0.0-0.7) Basophils # (Auto) 0.0 x10^3/uL (0.0-0.2) Sodium Level 137 mmol/L (136-145) Potassium Level 3.8 mmol/L (3.5-5.1) Chloride Level 101 mmol/L (98-107) Carbon Dioxide Level 25 mmol/L (21-32) Anion Gap 11 (6-14) Blood Urea Nitrogen 55 mg/dL (8-26) Creatinine 2.4 mg/dL (0.7-1.3) Estimated GFR (Cockcroft-Gault) 26.9 BUN/Creatinine Ratio 23 (6-20) Glucose Level 96 mg/dL (70-99) Calcium Level 9.1 mg/dL (8.5-10.1) Total Bilirubin 0.5 mg/dL (0.2-1.0) Aspartate Amino Transf (AST/SGOT) 19 U/L (15-37) Alanine Aminotransferase (ALT/SGPT) 22 U/L (16-63) Alkaline Phosphatase 77 U/L (46-116) Total Protein 7.2 g/dL (6.4-8.2) Albumin 2.7 g/dL (3.4-5.0) Albumin/Globulin Ratio 0.6 (1.0-1.7) Assessment and Plan Assessmemt and Plan Problems Medical Problems: (1) Chronic knee pain Status: Acute Comment Review of Relevant I have reviewed the following items minnie (where applicable) has been applied. Labs Laboratory Tests Test 05/15/18 12:34 05/15/18 16:35 05/15/18 18:40 05/15/18 19:56 White Blood Count 13.0 x10^3/uL (4.0-11.0) Red Blood Count 3.13 x10^6/uL (4.30-5.70) Hemoglobin 9.0 g/dL (13.0-17.5) Hematocrit 27.2 % (39.0-53.0) Mean Corpuscular Volume 87 fL (79-100) Mean Corpuscular Hemoglobin 29 pg (25-35) Mean Corpuscular Hemoglobin Concent 33 g/dL (31-37) Red Cell Distribution Width 13.4 % (11.5-14.5) Platelet Count 249 x10^3/uL (140-400) Neutrophils (%) (Auto) 82 % (31-73) Lymphocytes (%) (Auto) 7 % (24-48) Monocytes (%) (Auto) 10 % (0-9) Eosinophils (%) (Auto) 1 % (0-3) Basophils (%) (Auto) 0 % (0-3) Neutrophils # (Auto) 10.7 x10^3uL (1.8-7.7) Lymphocytes # (Auto) 0.9 x10^3/uL (1.0-4.8) Monocytes # (Auto) 1.3 x10^3/uL (0.0-1.1) Eosinophils # (Auto) 0.1 x10^3/uL (0.0-0.7) Basophils # (Auto) 0.0 x10^3/uL (0.0-0.2) Sodium Level 134 mmol/L (136-145) Potassium Level 4.2 mmol/L (3.5-5.1) Chloride Level 98 mmol/L (98-107) Carbon Dioxide Level 24 mmol/L (21-32) Anion Gap 12 (6-14) Blood Urea Nitrogen 52 mg/dL (8-26) Creatinine 1.9 mg/dL (0.7-1.3) Estimated GFR (Cockcroft-Gault) 35.2 BUN/Creatinine Ratio 27 (6-20) Glucose Level 214 mg/dL (70-99) Calcium Level 9.3 mg/dL (8.5-10.1) Total Bilirubin 0.6 mg/dL (0.2-1.0) Aspartate Amino Transf (AST/SGOT) 16 U/L (15-37) Alanine Aminotransferase (ALT/SGPT) 21 U/L (16-63) Alkaline Phosphatase 84 U/L (46-116) Total Protein 7.6 g/dL (6.4-8.2) Albumin 2.9 g/dL (3.4-5.0) Albumin/Globulin Ratio 0.6 (1.0-1.7) Glucose (Fingerstick) 181 mg/dL (70-99) 137 mg/dL (70-99) Urine Collection Type Unknown Urine Color Yellow Urine Clarity Clear Urine pH 5.0 Urine Specific [place] 1.015 Urine Protein Negative mg/dL (NEG-TRACE) Urine Glucose (UA) Negative mg/dL (NEG) Urine Ketones (Stick) Negative mg/dL (NEG) Urine Blood Negative (NEG) Urine Nitrite Negative (NEG) Urine Bilirubin Negative (NEG) Urine Urobilinogen Dipstick 1.0 mg/dL (0.2 mg/dL) Urine Leukocyte Esterase Negative (NEG) Urine RBC 0 /HPF (0-2) Urine WBC 0 /HPF (0-4) Urine Squamous Epithelial Cells Few /LPF Urine Bacteria 0 /HPF (0-FEW) Urine Hyaline Casts Many /HPF Urine Mucus Mod /LPF Test 05/16/18 04:55 White Blood Count 10.7 x10^3/uL (4.0-11.0) Red Blood Count 3.05 x10^6/uL (4.30-5.70) Hemoglobin 8.9 g/dL (13.0-17.5) Hematocrit 26.8 % (39.0-53.0) Mean Corpuscular Volume 88 fL (79-100) Mean Corpuscular Hemoglobin 29 pg (25-35) Mean Corpuscular Hemoglobin Concent 33 g/dL (31-37) Red Cell Distribution Width 13.5 % (11.5-14.5) Platelet Count 233 x10^3/uL (140-400) Neutrophils (%) (Auto) 74 % (31-73) Lymphocytes (%) (Auto) 11 % (24-48) Monocytes (%) (Auto) 13 % (0-9) Eosinophils (%) (Auto) 2 % (0-3) Basophils (%) (Auto) 0 % (0-3) Neutrophils # (Auto) 7.9 x10^3uL (1.8-7.7) Lymphocytes # (Auto) 1.2 x10^3/uL (1.0-4.8) Monocytes # (Auto) 1.4 x10^3/uL (0.0-1.1) Eosinophils # (Auto) 0.2 x10^3/uL (0.0-0.7) Basophils # (Auto) 0.0 x10^3/uL (0.0-0.2) Sodium Level 137 mmol/L (136-145) Potassium Level 3.8 mmol/L (3.5-5.1) Chloride Level 101 mmol/L (98-107) Carbon Dioxide Level 25 mmol/L (21-32) Anion Gap 11 (6-14) Blood Urea Nitrogen 55 mg/dL (8-26) Creatinine 2.4 mg/dL (0.7-1.3) Estimated GFR (Cockcroft-Gault) 26.9 BUN/Creatinine Ratio 23 (6-20) Glucose Level 96 mg/dL (70-99) Calcium Level 9.1 mg/dL (8.5-10.1) Total Bilirubin 0.5 mg/dL (0.2-1.0) Aspartate Amino Transf (AST/SGOT) 19 U/L (15-37) Alanine Aminotransferase (ALT/SGPT) 22 U/L (16-63) Alkaline Phosphatase 77 U/L (46-116) Total Protein 7.2 g/dL (6.4-8.2) Albumin 2.7 g/dL (3.4-5.0) Albumin/Globulin Ratio 0.6 (1.0-1.7) Laboratory Tests Test 05/15/18 12:34 05/15/18 16:35 05/15/18 18:40 05/15/18 19:56 White Blood Count 13.0 x10^3/uL (4.0-11.0) Red Blood Count 3.13 x10^6/uL (4.30-5.70) Hemoglobin 9.0 g/dL (13.0-17.5) Hematocrit 27.2 % (39.0-53.0) Mean Corpuscular Volume 87 fL (79-100) Mean Corpuscular Hemoglobin 29 pg (25-35) Mean Corpuscular Hemoglobin Concent 33 g/dL (31-37) Red Cell Distribution Width 13.4 % (11.5-14.5) Platelet Count 249 x10^3/uL (140-400) Neutrophils (%) (Auto) 82 % (31-73) Lymphocytes (%) (Auto) 7 % (24-48) Monocytes (%) (Auto) 10 % (0-9) Eosinophils (%) (Auto) 1 % (0-3) Basophils (%) (Auto) 0 % (0-3) Neutrophils # (Auto) 10.7 x10^3uL (1.8-7.7) Lymphocytes # (Auto) 0.9 x10^3/uL (1.0-4.8) Monocytes # (Auto) 1.3 x10^3/uL (0.0-1.1) Eosinophils # (Auto) 0.1 x10^3/uL (0.0-0.7) Basophils # (Auto) 0.0 x10^3/uL (0.0-0.2) Sodium Level 134 mmol/L (136-145) Potassium Level 4.2 mmol/L (3.5-5.1) Chloride Level 98 mmol/L (98-107) Carbon Dioxide Level 24 mmol/L (21-32) Anion Gap 12 (6-14) Blood Urea Nitrogen 52 mg/dL (8-26) Creatinine 1.9 mg/dL (0.7-1.3) Estimated GFR (Cockcroft-Gault) 35.2 BUN/Creatinine Ratio 27 (6-20) Glucose Level 214 mg/dL (70-99) Calcium Level 9.3 mg/dL (8.5-10.1) Total Bilirubin 0.6 mg/dL (0.2-1.0) Aspartate Amino Transf (AST/SGOT) 16 U/L (15-37) Alanine Aminotransferase (ALT/SGPT) 21 U/L (16-63) Alkaline Phosphatase 84 U/L (46-116) Total Protein 7.6 g/dL (6.4-8.2) Albumin 2.9 g/dL (3.4-5.0) Albumin/Globulin Ratio 0.6 (1.0-1.7) Glucose (Fingerstick) 181 mg/dL (70-99) 137 mg/dL (70-99) Urine Collection Type Unknown Urine Color Yellow Urine Clarity Clear Urine pH 5.0 Urine Specific [place] 1.015 Urine Protein Negative mg/dL (NEG-TRACE) Urine Glucose (UA) Negative mg/dL (NEG) Urine Ketones (Stick) Negative mg/dL (NEG) Urine Blood Negative (NEG) Urine Nitrite Negative (NEG) Urine Bilirubin Negative (NEG) Urine Urobilinogen Dipstick 1.0 mg/dL (0.2 mg/dL) Urine Leukocyte Esterase Negative (NEG) Urine RBC 0 /HPF (0-2) Urine WBC 0 /HPF (0-4) Urine Squamous Epithelial Cells Few /LPF Urine Bacteria 0 /HPF (0-FEW) Urine Hyaline Casts Many /HPF Urine Mucus Mod /LPF Test 05/16/18 04:55 White Blood Count 10.7 x10^3/uL (4.0-11.0) Red Blood Count 3.05 x10^6/uL (4.30-5.70) Hemoglobin 8.9 g/dL (13.0-17.5) Hematocrit 26.8 % (39.0-53.0) Mean Corpuscular Volume 88 fL (79-100) Mean Corpuscular Hemoglobin 29 pg (25-35) Mean Corpuscular Hemoglobin Concent 33 g/dL (31-37) Red Cell Distribution Width 13.5 % (11.5-14.5) Platelet Count 233 x10^3/uL (140-400) Neutrophils (%) (Auto) 74 % (31-73) Lymphocytes (%) (Auto) 11 % (24-48) Monocytes (%) (Auto) 13 % (0-9) Eosinophils (%) (Auto) 2 % (0-3) Basophils (%) (Auto) 0 % (0-3) Neutrophils # (Auto) 7.9 x10^3uL (1.8-7.7) Lymphocytes # (Auto) 1.2 x10^3/uL (1.0-4.8) Monocytes # (Auto) 1.4 x10^3/uL (0.0-1.1) Eosinophils # (Auto) 0.2 x10^3/uL (0.0-0.7) Basophils # (Auto) 0.0 x10^3/uL (0.0-0.2) Sodium Level 137 mmol/L (136-145) Potassium Level 3.8 mmol/L (3.5-5.1) Chloride Level 101 mmol/L (98-107) Carbon Dioxide Level 25 mmol/L (21-32) Anion Gap 11 (6-14) Blood Urea Nitrogen 55 mg/dL (8-26) Creatinine 2.4 mg/dL (0.7-1.3) Estimated GFR (Cockcroft-Gault) 26.9 BUN/Creatinine Ratio 23 (6-20) Glucose Level 96 mg/dL (70-99) Calcium Level 9.1 mg/dL (8.5-10.1) Total Bilirubin 0.5 mg/dL (0.2-1.0) Aspartate Amino Transf (AST/SGOT) 19 U/L (15-37) Alanine Aminotransferase (ALT/SGPT) 22 U/L (16-63) Alkaline Phosphatase 77 U/L (46-116) Total Protein 7.2 g/dL (6.4-8.2) Albumin 2.7 g/dL (3.4-5.0) Albumin/Globulin Ratio 0.6 (1.0-1.7) Medications Current Medications Ibuprofen (Motrin) 400 mg 1X ONCE PO Last administered on 05/15/18at 10:58; Start 05/15/18 at 10:30; Stop 05/15/18 at 10:31; Status DC Ondansetron HCl (Zofran) 4 mg PRN Q4HRS PRN IV NAUSEA/VOMITING; Start 05/15/18 at 14:15 Zolpidem Tartrate (Ambien) 5 mg PRN QHS PRN PO INSOMNIA Last administered on 05/15/18at 20:12; Start 05/15/18 at 14:15 Acetaminophen (Tylenol) 650 mg PRN Q4HRS PRN PO TEMP OVER 100.4F OR MILD PAIN; Start 05/15/18 at 14:15 Clonidine HCl (Catapres) 0.1 mg PRN Q6HRS PRN PO SBP>160 OR DBP>90; Start at 14:15 Albuterol/ Ipratropium (Duoneb) 3 ml Q4HRS NEB Last administered on 05/16/18 03 :31; Start 05/15/18 at 16:00 Guaifenesin (Robitussin) 200 mg PRN Q4HRS PRN PO COUGH Last administered on 05/15 20:15; Start 05/15/18 at 14:15 Lorazepam (Ativan) 0.5 mg PRN Q4HRS PRN PO ANXIETY / AGITATION; Start 05/15/18 at 14:15 Enoxaparin Sodium (Lovenox 60mg Syringe) 60 mg Q12HR SQ ; Start 05/15/18 at 21:00 ; Status Cancel Aspirin (Jacquelin Aspirin) 162.5 mg DAILY PO Last administered on 05/15/18 17:35; Start 05/15/18 at 15:30 Atorvastatin Calcium (Lipitor) 20 mg QHS PO Last administered on 05/15/18 20:12 ; Start 05/15/18 at 21:00 Bupropion HCl (Wellbutrin Sr) 150 mg BID PO Last administered on 05/15/18 20:13 ; Start 05/15/18 at 21:00 Vitamin D (Vitamin D3) 2,000 unit DAILY PO Last administered on 05/15/18 17:34 ; Start 05/15/18 at 15:30 Furosemide (Lasix) 40 mg BID94 PO Last administered on 05/15/18 17:33; Start at 16:00 Gabapentin (Neurontin) 200 mg BIDWBKFT/AVE PO ; Start 05/16/18 at 08:00 Gabapentin (Neurontin) 300 mg HS PO Last administered on 05/15/18 20:12; Start 05/15/18 at 21:00 Insulin Glargine (Lantus) 45 units QHS SQ Last administered on 05/15/18 20:21; Start 05/15/18 at 21:00 Lisinopril (Prinivil) 40 mg DAILY PO Last administered on 05/15/18 17:37; Start 05/15/18 at 15:30 Nystatin (Nystop) 15 ritu DAILY TP ; Start 05/16/18 at 09:00 Oxycodone HCl (Roxicodone) 10 mg PRN Q4HRS PRN PO SEVERE PAIN Last administered on 05/15/18 21:12; Start 05/15/18 at 14:15 Pantoprazole Sodium (Protonix) 40 mg DAILYAC PO Last administered on 05/15/18 17:35; Start 05/15/18 at 15:30 Senna/Docusate Sodium (Senna Plus) 1 tab BID PO Last administered on 05/15/18 20:12; Start 05/15/18 at 21:00 Carvedilol (Coreg) 25 mg BIDWMEALS PO Last administered on 05/15/18 17:34; Start 05/15/18 at 17:00 Diphenhydramine HCl (Benadryl) 25 mg PRN Q6HRS PRN PO ALLERGIES; Start 05/15/18 at 14:30 Fluticasone Propionate (Flonase) 2 spray DAILY NS ; Start 05/16/18 at 09:00 Non-Formulary Medication (Glucosamine Hcl/ Chondr [place] A Na ([facility] Glucosamine- Chondr Tablet)) 2 each DAILY PO ; Start 05/16/18 at 09:00; Status UNV Hydralazine HCl (Apresoline) 50 mg TID PO Last administered on 05/15/18 20:14; Start 05/15/18 at 15:30 Insulin Human Lispro (HumaLOG) 30 units TIDWMEALS SQ Last administered on 17:44; Start 05/15/18 at 17:00 Lactobacillus Rhamnosus (Culturelle) 1 cap BID PO Last administered on 20:13; Start 05/15/18 at 21:00 Meloxicam (Mobic) 7.5 mg DAILY PO Last administered on 05/15/18 17:32; Start at 15:30 Zinc Oxide (Zinc Oxide 20% Topical) 1 ritu BID TP Last administered on 05/15/18 20:22; Start 05/15/18 at 21:00 Ondansetron HCl (Zofran) 4 mg PRN Q8HRS PRN IV NAUSEA/VOMITING; Start 05/15/18 at 14:30; Stop 05/16/18 at 14:29 Acetaminophen (Tylenol) 650 mg PRN Q4HRS PRN PO FEVER; Start 05/15/18 at 14:30; Stop 05/16/18 at 14:29 Morphine Sulfate (Morphine Sulfate) 2 mg PRN Q2HR PRN IV PAIN; Start 05/15/18 at 15:45 Heparin Sodium (Porcine) (Heparin Sodium) 5,000 unit Q8HRS SQ Last administered on 05/16/18at 05:45; Start 05/15/18 at 22:00 Active Scripts Active Meloxicam 7.5 Mg Tablet 7.5 Mg PO DAILY Oxycodone Hcl Immed.release (Oxycodone Hcl) 5 Mg Tablet 10 Mg PO PRN Q4HRS PRN Reported Novolog Flexpen (Insulin Aspart) 100 Unit/1 Ml Insuln.pen 30 SQ TIDWMEALS Aspirin 325 Mg Tablet 0.5 Tab PO DAILY Senna-S Tablet (Sennosides/Docusate Sodium) 1 Each Tablet 1 Each PO BID Nyamyc (Nystatin) 15 Gm Powder 15 Gm TP DAILY Culturelle (Lactobacillus Rhamnosus Gg) 1 Each Capsule 1 Each PO BIDWMEALS Lantus Solostar (Insulin Glargine,Hum.rec.anlog) 100 Unit/1 Ml Insuln.pen 45 Unit SQ QHS Hydralazine Hcl 25 Mg Tablet 2 Tab PO TID [facility] Glucosamine-Chondr Tablet (Glucosamine Hcl/Chondr [place] A Na) 1 Each Tablet 2 Each PO DAILY Gabapentin (Gabapentin) 300 Mg Capsule 300 Mg PO HS Gabapentin (Gabapentin) 100 Mg Capsule 200 Mg PO BIDWBKFT/AVE Flonase Allergy Relief (Fluticasone Propionate) 9.9 Ml [place].susp 2 Sprays NS DAILY Elta Seal Moisture Barrier (Zinc Oxide) 114 Gm Cream..g. 114 Gm TP BID Diphenhydramine Hcl 50 Mg Capsule 25 Mg PO Q6HRS PRN Vitamin D3 (Cholecalciferol (Vitamin D3)) 1,000 Unit Tablet 2,000 Unit PO DAILY Atorvastatin Calcium 20 Mg Tablet DAILY Venlafaxine Hcl Er (Venlafaxine Hcl) 150 Mg Cap.er.24h DAILY Furosemide 20 Mg Tablet 40 Mg BID Lisinopril 40 Mg Tablet 40 DAILY Carvedilol 25 Mg Tablet 25 BID Pantoprazole Sodium 40 Mg Tablet.dr DAILY Bupropion Hcl Sr (Bupropion Hcl) 150 Mg Tablet.er 150 BID Vitals/I & O Vital Sign - Last 24 Hours 05/15/18 05/15/18 05/15/18 05/15/18 10:07 10:30 11:21 12:14 Temp 99.0 99.0 Pulse 98 66 68 Resp 20 9 19 B/P (MAP) 159/74 (102) Pulse Ox 99 99 96 95 O2 Delivery Room Air 05/15/18 05/15/18 05/15/18 05/15/18 13:10 14:10 15:10 16:04 Temp 98.2 98.2 Pulse 90 84 86 84 Resp 20 B/P (MAP) 159/65 (96) Pulse Ox 96 93 97 96 O2 Delivery Room Air 05/15/18 05/15/18 05/15/18 05/15/18 16:05 16:30 17:31 17:34 Pulse 84 84 B/P (MAP) 159/65 159/65 Pulse Ox 99 O2 Delivery Room Air Room Air 05/15/18 05/15/18 05/15/18 05/15/18 17:37 17:41 18:45 19:00 Temp 98.6 98.6 Pulse 84 84 Resp 18 B/P (MAP) 159/65 120/57 (78) Pulse Ox 99 99 93 O2 Delivery Room Air Room Air 05/15/18 05/15/18 05/15/18 05/15/18 20:00 20:14 21:12 23:00 Temp 98.7 98.7 Pulse 84 77 Resp 16 B/P (MAP) 120/57 126/83 (97) Pulse Ox 95 O2 Delivery Room Air Room Air Room Air 05/15/18 05/16/18 05/16/18 05/16/18 23:26 00:14 03:00 03:30 Temp 98.6 98.6 Pulse 90 Resp 16 B/P (MAP) 103/42 (62) Pulse Ox 94 O2 Delivery Room Air Room Air Room Air Room Air JAYSON ROCHA MD May 16, 2018 08:39
[2018-05-16] MEDS: ASPIRIN 325 MG TABLET PO SCH (08:50)
[2018-05-16] MEDS: GABAPENTIN 100 MG CAPSULE. PO SCH ×2 (08:51→12:21)
[2018-05-16] MEDS: CHOLECALCIFEROL (VITAMIN D3) 1,000 UNIT TABLET PO SCH (08:51)
[2018-05-16] MEDS: LACTOBACILLUS RHAMNOSUS GG 1 CAPSULE. PO SCH ×2 (08:51→21:09)
[2018-05-16] MEDS: PANTOPRAZOLE 40 MG TABLET.DR. PO SCH (08:51)
[2018-05-16] MEDS: buPROPion SR 150 MG TABLET.SA PO SCH ×2 (08:52→21:09)
[2018-05-16] MEDS: SENNOSIDES/DOCUSATE 8.6/50MG TABLET. PO SCH ×2 (08:52→21:10)
[2018-05-16] MEDS: MELOXICAM 7.5 MG TABLET PO SCH (08:52)
[2018-05-16] MEDS: NYSTATIN TOPICAL POWDER 15GM BOTTLE. TP SCH (08:53)
[2018-05-16] MEDS: FLUTICASONE 50MCG/NASAL SPRAY 16GM BOTTLE. NS SCH (08:53)
[2018-05-16] MEDS ORDERED: [UNRECOGNIZED DRUG - OTHER] PO SCH (09:00)
[2018-05-16] MEDS ORDERED: GLUCOSAMINE HCL PO SCH (09:00)
[2018-05-16] MEDS ORDERED: CHONDR SU A NA PO SCH (09:00)
[2018-05-16] MEDS: ZINC OXIDE 20% TOPICAL OINTMENT 28GM TUBE. TP SCH ×2 (09:12→21:17)
--- NOTE | 2018-05-16 09:30 | PDOC2 ---
CONSULT Date of Consult Date of Consult DATE: 05/16/18 TIME: 09:25 Reason for Consult Reason for Consult: Right knee arthritis Referring Physician Referring Physician: Kim Identification/Chief Complaint Chief Complaint Low back pain Source Source: Chart review, Patient History of Present Illness Reason for Visit: Patient is a pleasant 72-year-old gentleman who has had right knee pain that comes and goes for several years. His most recent bad episode of knee pain was last year, sometime in September, with minor precipitating trauma. He was seen at and given an injection, he is uncertain as far as what it was. It was a one- time injection. This helped out for several months. He tells me that his knee pain currently in her fears with his ability to ambulate. It is a little bit better at rest. Does radiate up and down his leg. He is at she complaining more of back pain that goes down into his buttock and upper thighs posteriorly more so than his knee pain right now. He was found have a right great toe wound as well. He is not certain how long this toe wound is better. He has not noticed any follow-up order or drainage though. Past Medical History Cardiovascular: CAD, CHF, HTN Pulmonary: No pertinent hx Renal/: Chronic renal insuff Endocrine: Diabetes Family History Family History: No Significant, Hypertension Social History ALCOHOL: none Drugs: None Current Problem List Problem List Problems Medical Problems: (1) Chronic knee pain Status: Acute Current Medications Current Medications Current Medications Ibuprofen (Motrin) 400 mg 1X ONCE PO Last administered on 05/15/18at 10:58; Start 05/15/18 at 10:30; Stop 05/15/18 at 10:31; Status DC Ondansetron HCl (Zofran) 4 mg PRN Q4HRS PRN IV NAUSEA/VOMITING; Start 05/15/18 at 14:15 Zolpidem Tartrate (Ambien) 5 mg PRN QHS PRN PO INSOMNIA Last administered on 05/15/18at 20:12; Start 05/15/18 at 14:15 Acetaminophen (Tylenol) 650 mg PRN Q4HRS PRN PO TEMP OVER 100.4F OR MILD PAIN; Start 05/15/18 at 14:15 Clonidine HCl (Catapres) 0.1 mg PRN Q6HRS PRN PO SBP>160 OR DBP>90; Start at 14:15 Albuterol/ Ipratropium (Duoneb) 3 ml Q4HRS NEB Last administered on 05/16/18 03 :31; Start 05/15/18 at 16:00 Guaifenesin (Robitussin) 200 mg PRN Q4HRS PRN PO COUGH Last administered on 05/15 20:15; Start 05/15/18 at 14:15 Lorazepam (Ativan) 0.5 mg PRN Q4HRS PRN PO ANXIETY / AGITATION; Start 05/15/18 at 14:15 Enoxaparin Sodium (Lovenox 60mg Syringe) 60 mg Q12HR SQ ; Start 05/15/18 at 21:00 ; Status Cancel Aspirin (Jacquelin Aspirin) 162.5 mg DAILY PO Last administered on 05/16/18 08:50; Start 05/15/18 at 15:30 Atorvastatin Calcium (Lipitor) 20 mg QHS PO Last administered on 05/15/18 20:12 ; Start 05/15/18 at 21:00 Bupropion HCl (Wellbutrin Sr) 150 mg BID PO Last administered on 05/16/18 08:52 ; Start 05/15/18 at 21:00 Vitamin D (Vitamin D3) 2,000 unit DAILY PO Last administered on 05/16/18 08:51 ; Start 05/15/18 at 15:30 Furosemide (Lasix) 40 mg BID94 PO Last administered on 05/15/18 17:33; Start at 16:00 Gabapentin (Neurontin) 200 mg BIDWBKFT/AVE PO Last administered on 05/16/18 08: 51; Start 05/16/18 at 08:00 Gabapentin (Neurontin) 300 mg HS PO Last administered on 05/15/18 20:12; Start 05/15/18 at 21:00 Insulin Glargine (Lantus) 45 units QHS SQ Last administered on 05/15/18 20:21; Start 05/15/18 at 21:00 Lisinopril (Prinivil) 40 mg DAILY PO Last administered on 05/15/18 17:37; Start 05/15/18 at 15:30 Nystatin (Nystop) 15 ritu DAILY TP Last administered on 05/16/18 08:53; Start at 09:00 Oxycodone HCl (Roxicodone) 10 mg PRN Q4HRS PRN PO SEVERE PAIN Last administered on 05/15/18 21:12; Start 05/15/18 at 14:15 Pantoprazole Sodium (Protonix) 40 mg DAILYAC PO Last administered on 05/16/18 08:51; Start 05/15/18 at 15:30 Senna/Docusate Sodium (Senna Plus) 1 tab BID PO Last administered on 05/16/18 08:52; Start 05/15/18 at 21:00 Carvedilol (Coreg) 25 mg BIDWMEALS PO Last administered on 05/15/18 17:34; Start 05/15/18 at 17:00 Diphenhydramine HCl (Benadryl) 25 mg PRN Q6HRS PRN PO ALLERGIES; Start 05/15/18 at 14:30 Fluticasone Propionate (Flonase) 2 spray DAILY NS Last administered on 08:53; Start 05/16/18 at 09:00 Non-Formulary Medication (Glucosamine Hcl/ Chondr [place] A Na ([facility]vs Glucosamine- Chondr Tablet)) 2 each DAILY PO ; Start 05/16/18 at 09:00; Status UNV Hydralazine HCl (Apresoline) 50 mg TID PO Last administered on 05/15/18 20:14; Start 05/15/18 at 15:30 Insulin Human Lispro (HumaLOG) 30 units TIDWMEALS SQ Last administered on 17:44; Start 05/15/18 at 17:00 Lactobacillus Rhamnosus (Culturelle) 1 cap BID PO Last administered on 08:51; Start 05/15/18 at 21:00 Meloxicam (Mobic) 7.5 mg DAILY PO Last administered on 05/16/18 08:52; Start at 15:30 Zinc Oxide (Zinc Oxide 20% Topical) 1 ritu BID TP Last administered on 05/16/18 09:12; Start 05/15/18 at 21:00 Ondansetron HCl (Zofran) 4 mg PRN Q8HRS PRN IV NAUSEA/VOMITING; Start 05/15/18 at 14:30; Stop 05/16/18 at 14:29 Acetaminophen (Tylenol) 650 mg PRN Q4HRS PRN PO FEVER; Start 05/15/18 at 14:30; Stop 05/16/18 at 14:29 Morphine Sulfate (Morphine Sulfate) 2 mg PRN Q2HR PRN IV PAIN Last administered on 05/16/18at 08:48; Start 05/15/18 at 15:45 Heparin Sodium (Porcine) (Heparin Sodium) 5,000 unit Q8HRS SQ Last administered on 05/16/18at 05:45; Start 05/15/18 at 22:00 Active Scripts Active Meloxicam 7.5 Mg Tablet 7.5 Mg PO DAILY Oxycodone Hcl Immed.release (Oxycodone Hcl) 5 Mg Tablet 10 Mg PO PRN Q4HRS PRN Reported Novolog Flexpen (Insulin Aspart) 100 Unit/1 Ml Insuln.pen 30 SQ TIDWMEALS Aspirin 325 Mg Tablet 0.5 Tab PO DAILY Senna-S Tablet (Sennosides/Docusate Sodium) 1 Each Tablet 1 Each PO BID Nyamyc (Nystatin) 15 Gm Powder 15 Gm TP DAILY Culturelle (Lactobacillus Rhamnosus Gg) 1 Each Capsule 1 Each PO BIDWMEALS Lantus Solostar (Insulin Glargine,Hum.rec.anlog) 100 Unit/1 Ml Insuln.pen 45 Unit SQ QHS Hydralazine Hcl 25 Mg Tablet 2 Tab PO TID Cvs Glucosamine-Chondr Tablet (Glucosamine Hcl/Chondr [place] A Na) 1 Each Tablet 2 Each PO DAILY Gabapentin (Gabapentin) 300 Mg Capsule 300 Mg PO HS Gabapentin (Gabapentin) 100 Mg Capsule 200 Mg PO BIDWBKFT/AVE Flonase Allergy Relief (Fluticasone Propionate) 9.9 Ml [place].susp 2 Sprays NS DAILY Elta Seal Moisture Barrier (Zinc Oxide) 114 Gm Cream..g. 114 Gm TP BID Diphenhydramine Hcl 50 Mg Capsule 25 Mg PO Q6HRS PRN Vitamin D3 (Cholecalciferol (Vitamin D3)) 1,000 Unit Tablet 2,000 Unit PO DAILY Atorvastatin Calcium 20 Mg Tablet DAILY Venlafaxine Hcl Er (Venlafaxine Hcl) 150 Mg Cap.er.24h DAILY Furosemide 20 Mg Tablet 40 Mg BID Lisinopril 40 Mg Tablet 40 DAILY Carvedilol 25 Mg Tablet 25 BID Pantoprazole Sodium 40 Mg Tablet.dr DAILY Bupropion Hcl Sr (Bupropion Hcl) 150 Mg Tablet.er 150 BID Allergies Allergies: Coded Allergies: cefuroxime (Verified Allergy, Intermediate, 05/11/16) piperacillin (Verified Adverse Reaction, Intermediate, RASH, 10/25/15) TOLERATED ERTAPENEM tazobactam (Verified Adverse Reaction, Intermediate, RASH, 10/25/15) TOLERATED ERTAPENEM zolpidem (Verified Adverse Reaction, Intermediate, HALLUCINATIONS, 10/25/15 ) glipizide (Verified Adverse Reaction, Mild, SENSITIVITY TO SUN, 10/25/15) Uncoded Allergies: DUST (Allergy, Mild, SNEEZING, 10/25/15) ROS General: No: Chills, Night Sweats, Fatigue, Malaise, Appetite, Other PSYCHOLOGICAL ROS: No: Anxiety, Behavioral Disorder, Concentration difficultie , Decreased libido, Depression, Disorientation, Hallucinations, Hostility, Irritablity, Memory difficulties, Mood Swings, Obsessive thoughts, Physical abuse, Sexual abuse, Sleep disturbances, Suicidal ideation, Other Eyes: No Blurry vision, No Decreased vision, No Double vision, No Dry eyes, No Excessive tearing, No Eye Pain, No Itchy Eyes, No Loss of vision, No Photophobia , No Scotomata, No Uses contacts, No Uses glasses, No Other HEENT: No: Heacaches, Visual Changes, Hearing change, Nasal congestion, Nasal discharge, Oral lesions, Sinus pain, Sore Throat, Epistaxis, Sneezing, Snoring, Tinnitus, Vertigo, Vocal changes, Other ALLERGY AND IMMUNOLOGY: No: Hives, Insect Bite Sensitivity, Itchy/Watery Eyes, Nasal Congestion, Post Nasal Drip, Seasonal Allergies, Other Hematological and Lymphatic: No: Bleeding Problems, Blood Clots, Blood Transfusions, Brusing, Night Sweats, Pallor, Swollen Lymph Nodes, Other Respiratory: No: Cough, Hemoptysis, Orthopnea, Pleuritic Pain, Shortness of breath, SOB with excertion, Sputum Changes, Stridor, Tachypnea, Wheezing, Other Cardiovascular: No Chest Pain, No Palpitations, No Orthopnea, No Paroxysmal Noc. Dyspnea, No Edema, No Lt Headedness, No Other Gastrointestinal: No Nausea, No Vomiting, No Abdominal Pain, No Diarrhea, No Constipation, No Melena, No Hematochezia, No Other Genitourinary: No Dysuria, No Frequency, No Incontinence, No Hematuria, No Retention, No Discharge, No Urgency, No Pain, No Flank Pain, No Other, No , No , No , No , No , No , No Musculoskeletal: Yes Joint Pain, Yes Joint Stiffness Neurological: Yes Numbness/Tingling Skin: No Dry Skin, No Eczema, No Hair Changes, No Lumps, No Mole Changes, No Mottling, No Nail Changes, No Pruritus, No Rash, No Skin Lesion Changes, No Other, No Acne Physical Exam General: Alert, Oriented X3 HEENT: Atraumatic, EOMI Lungs: Other (respirations are unlabored, symmetric chest rise) Heart: Other (radial pulses 2+. 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 He has technical callused skin over this. Examination of his right foot reveals a 1 cm diameter lesion, I'm unable to probe down to bone, there is surrounding callus. No fluctuance purulence or swelling in the great toe is present. He has crepitus with range of motion of both his knees. Limited range of motion is present in his right knee secondary to pain. Right knee stable to varus and valgus.) Vitals VITALS Vital Signs Date Time Temp Pulse Resp B/P (MAP) Pulse Ox O2 Delivery O2 Flow Rate FiO2 05/16/18 08:48 18 Room Air 05/16/18 08:00 90 94/45 05/16/18 07:00 98.5 95 98.5 Labs Labs Laboratory Tests Test 05/15/18 12:34 05/15/18 16:35 05/15/18 18:40 05/15/18 19:56 White Blood Count 13.0 x10^3/uL (4.0-11.0) Red Blood Count 3.13 x10^6/uL (4.30-5.70) Hemoglobin 9.0 g/dL (13.0-17.5) Hematocrit 27.2 % (39.0-53.0) Mean Corpuscular Volume 87 fL (79-100) Mean Corpuscular Hemoglobin 29 pg (25-35) Mean Corpuscular Hemoglobin Concent 33 g/dL (31-37) Red Cell Distribution Width 13.4 % (11.5-14.5) Platelet Count 249 x10^3/uL (140-400) Neutrophils (%) (Auto) 82 % (31-73) Lymphocytes (%) (Auto) 7 % (24-48) Monocytes (%) (Auto) 10 % (0-9) Eosinophils (%) (Auto) 1 % (0-3) Basophils (%) (Auto) 0 % (0-3) Neutrophils # (Auto) 10.7 x10^3uL (1.8-7.7) Lymphocytes # (Auto) 0.9 x10^3/uL (1.0-4.8) Monocytes # (Auto) 1.3 x10^3/uL (0.0-1.1) Eosinophils # (Auto) 0.1 x10^3/uL (0.0-0.7) Basophils # (Auto) 0.0 x10^3/uL (0.0-0.2) Sodium Level 134 mmol/L (136-145) Potassium Level 4.2 mmol/L (3.5-5.1) Chloride Level 98 mmol/L (98-107) Carbon Dioxide Level 24 mmol/L (21-32) Anion Gap 12 (6-14) Blood Urea Nitrogen 52 mg/dL (8-26) Creatinine 1.9 mg/dL (0.7-1.3) Estimated GFR (Cockcroft-Gault) 35.2 BUN/Creatinine Ratio 27 (6-20) Glucose Level 214 mg/dL (70-99) Calcium Level 9.3 mg/dL (8.5-10.1) Total Bilirubin 0.6 mg/dL (0.2-1.0) Aspartate Amino Transf (AST/SGOT) 16 U/L (15-37) Alanine Aminotransferase (ALT/SGPT) 21 U/L (16-63) Alkaline Phosphatase 84 U/L (46-116) Total Protein 7.6 g/dL (6.4-8.2) Albumin 2.9 g/dL (3.4-5.0) Albumin/Globulin Ratio 0.6 (1.0-1.7) Glucose (Fingerstick) 181 mg/dL (70-99) 137 mg/dL (70-99) Urine Collection Type Unknown Urine Color Yellow Urine Clarity Clear Urine pH 5.0 Urine Specific [place] 1.015 Urine Protein Negative mg/dL (NEG-TRACE) Urine Glucose (UA) Negative mg/dL (NEG) Urine Ketones (Stick) Negative mg/dL (NEG) Urine Blood Negative (NEG) Urine Nitrite Negative (NEG) Urine Bilirubin Negative (NEG) Urine Urobilinogen Dipstick 1.0 mg/dL (0.2 mg/dL) Urine Leukocyte Esterase Negative (NEG) Urine RBC 0 /HPF (0-2) Urine WBC 0 /HPF (0-4) Urine Squamous Epithelial Cells Few /LPF Urine Bacteria 0 /HPF (0-FEW) Urine Hyaline Casts Many /HPF Urine Mucus Mod /LPF Test 05/16/18 04:55 05/16/18 07:33 White Blood Count 10.7 x10^3/uL (4.0-11.0) Red Blood Count 3.05 x10^6/uL (4.30-5.70) Hemoglobin 8.9 g/dL (13.0-17.5) Hematocrit 26.8 % (39.0-53.0) Mean Corpuscular Volume 88 fL (79-100) Mean Corpuscular Hemoglobin 29 pg (25-35) Mean Corpuscular Hemoglobin Concent 33 g/dL (31-37) Red Cell Distribution Width 13.5 % (11.5-14.5) Platelet Count 233 x10^3/uL (140-400) Neutrophils (%) (Auto) 74 % (31-73) Lymphocytes (%) (Auto) 11 % (24-48) Monocytes (%) (Auto) 13 % (0-9) Eosinophils (%) (Auto) 2 % (0-3) Basophils (%) (Auto) 0 % (0-3) Neutrophils # (Auto) 7.9 x10^3uL (1.8-7.7) Lymphocytes # (Auto) 1.2 x10^3/uL (1.0-4.8) Monocytes # (Auto) 1.4 x10^3/uL (0.0-1.1) Eosinophils # (Auto) 0.2 x10^3/uL (0.0-0.7) Basophils # (Auto) 0.0 x10^3/uL (0.0-0.2) Sodium Level 137 mmol/L (136-145) Potassium Level 3.8 mmol/L (3.5-5.1) Chloride Level 101 mmol/L (98-107) Carbon Dioxide Level 25 mmol/L (21-32) Anion Gap 11 (6-14) Blood Urea Nitrogen 55 mg/dL (8-26) Creatinine 2.4 mg/dL (0.7-1.3) Estimated GFR (Cockcroft-Gault) 26.9 BUN/Creatinine Ratio 23 (6-20) Glucose Level 96 mg/dL (70-99) Calcium Level 9.1 mg/dL (8.5-10.1) Total Bilirubin 0.5 mg/dL (0.2-1.0) Aspartate Amino Transf (AST/SGOT) 19 U/L (15-37) Alanine Aminotransferase (ALT/SGPT) 22 U/L (16-63) Alkaline Phosphatase 77 U/L (46-116) Total Protein 7.2 g/dL (6.4-8.2) Albumin 2.7 g/dL (3.4-5.0) Albumin/Globulin Ratio 0.6 (1.0-1.7) Glucose (Fingerstick) 102 mg/dL (70-99) Laboratory Tests Test 05/15/18 12:34 05/15/18 16:35 05/15/18 18:40 05/15/18 19:56 White Blood Count 13.0 x10^3/uL (4.0-11.0) Red Blood Count 3.13 x10^6/uL (4.30-5.70) Hemoglobin 9.0 g/dL (13.0-17.5) Hematocrit 27.2 % (39.0-53.0) Mean Corpuscular Volume 87 fL (79-100) Mean Corpuscular Hemoglobin 29 pg (25-35) Mean Corpuscular Hemoglobin Concent 33 g/dL (31-37) Red Cell Distribution Width 13.4 % (11.5-14.5) Platelet Count 249 x10^3/uL (140-400) Neutrophils (%) (Auto) 82 % (31-73) Lymphocytes (%) (Auto) 7 % (24-48) Monocytes (%) (Auto) 10 % (0-9) Eosinophils (%) (Auto) 1 % (0-3) Basophils (%) (Auto) 0 % (0-3) Neutrophils # (Auto) 10.7 x10^3uL (1.8-7.7) Lymphocytes # (Auto) 0.9 x10^3/uL (1.0-4.8) Monocytes # (Auto) 1.3 x10^3/uL (0.0-1.1) Eosinophils # (Auto) 0.1 x10^3/uL (0.0-0.7) Basophils # (Auto) 0.0 x10^3/uL (0.0-0.2) Sodium Level 134 mmol/L (136-145) Potassium Level 4.2 mmol/L (3.5-5.1) Chloride Level 98 mmol/L (98-107) Carbon Dioxide Level 24 mmol/L (21-32) Anion Gap 12 (6-14) Blood Urea Nitrogen 52 mg/dL (8-26) Creatinine 1.9 mg/dL (0.7-1.3) Estimated GFR (Cockcroft-Gault) 35.2 BUN/Creatinine Ratio 27 (6-20) Glucose Level 214 mg/dL (70-99) Calcium Level 9.3 mg/dL (8.5-10.1) Total Bilirubin 0.6 mg/dL (0.2-1.0) Aspartate Amino Transf (AST/SGOT) 16 U/L (15-37) Alanine Aminotransferase (ALT/SGPT) 21 U/L (16-63) Alkaline Phosphatase 84 U/L (46-116) Total Protein 7.6 g/dL (6.4-8.2) Albumin 2.9 g/dL (3.4-5.0) Albumin/Globulin Ratio 0.6 (1.0-1.7) Glucose (Fingerstick) 181 mg/dL (70-99) 137 mg/dL (70-99) Urine Collection Type Unknown Urine Color Yellow Urine Clarity Clear Urine pH 5.0 Urine Specific [place] 1.015 Urine Protein Negative mg/dL (NEG-TRACE) Urine Glucose (UA) Negative mg/dL (NEG) Urine Ketones (Stick) Negative mg/dL (NEG) Urine Blood Negative (NEG) Urine Nitrite Negative (NEG) Urine Bilirubin Negative (NEG) Urine Urobilinogen Dipstick 1.0 mg/dL (0.2 mg/dL) Urine Leukocyte Esterase Negative (NEG) Urine RBC 0 /HPF (0-2) Urine WBC 0 /HPF (0-4) Urine Squamous Epithelial Cells Few /LPF Urine Bacteria 0 /HPF (0-FEW) Urine Hyaline Casts Many /HPF Urine Mucus Mod /LPF Test 05/16/18 04:55 05/16/18 07:33 White Blood Count 10.7 x10^3/uL (4.0-11.0) Red Blood Count 3.05 x10^6/uL (4.30-5.70) Hemoglobin 8.9 g/dL (13.0-17.5) Hematocrit 26.8 % (39.0-53.0) Mean Corpuscular Volume 88 fL (79-100) Mean Corpuscular Hemoglobin 29 pg (25-35) Mean Corpuscular Hemoglobin Concent 33 g/dL (31-37) Red Cell Distribution Width 13.5 % (11.5-14.5) Platelet Count 233 x10^3/uL (140-400) Neutrophils (%) (Auto) 74 % (31-73) Lymphocytes (%) (Auto) 11 % (24-48) Monocytes (%) (Auto) 13 % (0-9) Eosinophils (%) (Auto) 2 % (0-3) Basophils (%) (Auto) 0 % (0-3) Neutrophils # (Auto) 7.9 x10^3uL (1.8-7.7) Lymphocytes # (Auto) 1.2 x10^3/uL (1.0-4.8) Monocytes # (Auto) 1.4 x10^3/uL (0.0-1.1) Eosinophils # (Auto) 0.2 x10^3/uL (0.0-0.7) Basophils # (Auto) 0.0 x10^3/uL (0.0-0.2) Sodium Level 137 mmol/L (136-145) Potassium Level 3.8 mmol/L (3.5-5.1) Chloride Level 101 mmol/L (98-107) Carbon Dioxide Level 25 mmol/L (21-32) Anion Gap 11 (6-14) Blood Urea Nitrogen 55 mg/dL (8-26) Creatinine 2.4 mg/dL (0.7-1.3) Estimated GFR (Cockcroft-Gault) 26.9 BUN/Creatinine Ratio 23 (6-20) Glucose Level 96 mg/dL (70-99) Calcium Level 9.1 mg/dL (8.5-10.1) Total Bilirubin 0.5 mg/dL (0.2-1.0) Aspartate Amino Transf (AST/SGOT) 19 U/L (15-37) Alanine Aminotransferase (ALT/SGPT) 22 U/L (16-63) Alkaline Phosphatase 77 U/L (46-116) Total Protein 7.2 g/dL (6.4-8.2) Albumin 2.7 g/dL (3.4-5.0) Albumin/Globulin Ratio 0.6 (1.0-1.7) Glucose (Fingerstick) 102 mg/dL (70-99) Images Images Knee x-rays were interpreted by myself. Foot x-rays were interpreted by myself. No obvious bony involvement adjacent to his toe wound. He does have degenerative changes throughout his midfoot. He has advanced degenerative changes present throughout his right knee as well. Assessment/Plan Assessment/Plan I did discuss trying a cortisone injection with the patient and he wished to proceed with that. I asked the nurse to order up the supplies and I will perform this injection later. Given his decreased sensation in the wound, I will perform a bedside debridement to more fully assess the wound and a later time as well. ZARIA MAO II, MD May 16, 2018 09:30
--- NOTE | 2018-05-16 10:15 | NUR ---
FACULTY CO-SIGN I have reviewed the documentation and nurses note by Rian Velazquez manager nursing, [facility].:
--- NOTE | 2018-05-16 10:15 | NUR ---
Upon assessment patient stated having lower back pain rating at a 9/10. PRN pain medication given, when repositioning patient student nurse noted large bruising on the buttocks. Pictures taken and placed in chart, Nurse Manjit notified. Student nurse asked patient if he had recently fallen, patient stated he had fallen multiple times prior to admission to hospital visit. Patient also states having left shoulder pain from falls. [facility]
[2018-05-16 11:00] VITALS: BP 99/70
[2018-05-16 14:32] VITALS: BP 114/59
[2018-05-16] MEDS: oxyCODONE IR 5 MG TABLET PO PRN (14:57)
--- NOTE | 2018-05-16 15:01 | NUR ---
Upon nurses request held 1400 dose of Apresoline. [facility]
--- NOTE | 2018-05-16 15:03 | RAD ---
EXAM: 1. Sacrum/coccyx 3 views. 2. Right hip 2 views. HISTORY: Multiple falls. Right hip and sacrococcygeal pain/bruising. COMPARISON: None. FINDINGS: There is no displaced sacral or coccygeal fracture. 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 There are moderate degenerative changes of the lower lumbar spine. Changes of diffuse idiopathic skeletal hyperostosis are noted. There is diffuse ossification of the right acetabular labrum. Femoral head/neck offset is moderately decreased anteriorly and superolaterally. The joint spaces of the right hip are maintained. No fractures are seen about the right hip. IMPRESSION: 1. No fracture. 2. 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 Electronically signed by: Richy Avery MD (05/16/2018 3:00 PM) [facility] – [place], [place]
[2018-05-16 19:00] VITALS: BP 90/40
[2018-05-16] MEDS: ATORVASTATIN CALCIUM 20 MG TABLET PO SCH (21:10)
[2018-05-16] MEDS: GABAPENTIN 300 MG CAPSULE. PO SCH (21:13)
[2018-05-16] MEDS: INSULIN GLARGINE 300 UNITS/3 ML INSULN.PEN. SQ SCH (21:14)
[2018-05-16 23:00] VITALS: BP 135/59
[2018-05-16] MEDS: ZOLPIDEM 5 MG TABLET. PO PRN (23:29)
[2018-05-17 03:00] VITALS: BP 102/59
[2018-05-17] MEDS: IPRATRPIUM/ALBUTEROL 0.5/2.5MG 3 ML NEBU. NEB SCH ×6 (04:28→23:15)
[2018-05-17] MEDS: HEPARIN for SUB-Q USE 5,000 UNIT/ML VIAL. SQ SCH ×3 (05:40→22:11)
[2018-05-17 07:00] VITALS: BP 149/56
--- NOTE | 2018-05-17 07:29 | PDOC ---
PROGRESS NOTES Chief Complaint Chief Complaint Severe bilateral knee osteoarthritis Inability to care for self Morbid obesity with a BMI of 56 Impaired mobility as a consequence of the severe osteoarthritis Leukocytosis which may be reactive but in light of his multiple skin lesions cannot rule out an infection Diabetic right great toe ulcer Hyponatremia of no clinical consequence Normocytic anemia of chronic inflammation Hypertension Dyslipidemia History of diabetes mellitus type 2 insulin requiring History of Present Illness History of Present Illness Mr Herrera is a morbidly obese 72-year-old male with past medical history of hypertension diabetes and dyslipidemia with severe osteoarthritis. Patient also has peripheral vascular disease and amputation transmetatarsal left foot. The patient has been in his usual state of health until 2 days prior to his admission when he started noticing increased weakness. His knees have gotten very weak and painful upon ambulation, he has been seen in other facilities and recommended a bilateral knee replacement noted to address his severe osteoarthritis. The patient has been unable to walk recently or care for himself. The patient also relates to me that over the last couple days he has been wearing tighter fitting sock that unfortunately has probably given him circulatory problems he has a ulcer over his right great toe clean base serous material is draining no purulent discharge evident no evidence of erythema or the affected area either. He has a necrotic scar also on the second toe of his right foot. Patient has venous insufficiency discoloration over his bilateral lower extremities and evidence of self-inflicted trauma from scratching both legs. He summoned EMS due to his inability to care for himself and he lives at home with his was unable to lift him from the floor 05/15 after he scooted out of bed. He has fallen on several occasions over the last couple days with multiple bruises on his backside and bilateral legs and arms. 05/16: Today still feeling weak, unable to walk. Today with Cr to 2.4 and Hb to 8.9. Some mild SOB, no CP. Nursing notes bruising and coccygeal pain. Sacral and coccyx imaging negative for fracture Cough worsening significantly overnight and now c/o left shoulder and neck pain. He denies any chest pain. Plan: CT chest to better elucidate mass. With his recent trauma could be a pulmonary contusion or developing pneumonia since he does not seem to be improving from respiratory standpoint. 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 Skilled rehab on d/c eventually Hold nephrotoxic meds Vitals Vitals Vital Signs Date Time Temp Pulse Resp B/P (MAP) Pulse Ox O2 Delivery O2 Flow Rate FiO2 05/17/18 04:29 Room Air 05/17/18 03:00 98.5 84 18 102/59 (73) 92 98.5 Physical Exam General: Alert, Oriented X3, Cooperative Heart: Regular rate, Normal S1, Normal S2 Lungs: Clear Abdomen: Normal bowel sounds, Soft Extremities: No clubbing, No cyanosis, Other (Tender, swollen legs) Skin: Other (Gluteal bruising) Labs LABS Laboratory Tests Test 05/16/18 07:33 05/16/18 11:52 05/16/18 16:36 05/16/18 20:34 Glucose (Fingerstick) 102 mg/dL (70-99) 168 mg/dL (70-99) 148 mg/dL (70-99) 92 mg/dL (70-99) Test 05/16/18 21:09 Glucose (Fingerstick) 77 mg/dL (70-99) Assessment and Plan Assessmemt and Plan Problems Medical Problems: (1) Chronic knee pain Status: Acute Comment Review of Relevant I have reviewed the following items minnie (where applicable) has been applied. Labs Laboratory Tests Test 05/15/18 12:34 05/15/18 16:35 05/15/18 18:40 05/15/18 19:56 White Blood Count 13.0 x10^3/uL (4.0-11.0) Red Blood Count 3.13 x10^6/uL (4.30-5.70) Hemoglobin 9.0 g/dL (13.0-17.5) Hematocrit 27.2 % (39.0-53.0) Mean Corpuscular Volume 87 fL (79-100) Mean Corpuscular Hemoglobin 29 pg (25-35) Mean Corpuscular Hemoglobin Concent 33 g/dL (31-37) Red Cell Distribution Width 13.4 % (11.5-14.5) Platelet Count 249 x10^3/uL (140-400) Neutrophils (%) (Auto) 82 % (31-73) Lymphocytes (%) (Auto) 7 % (24-48) Monocytes (%) (Auto) 10 % (0-9) Eosinophils (%) (Auto) 1 % (0-3) Basophils (%) (Auto) 0 % (0-3) Neutrophils # (Auto) 10.7 x10^3uL (1.8-7.7) Lymphocytes # (Auto) 0.9 x10^3/uL (1.0-4.8) Monocytes # (Auto) 1.3 x10^3/uL (0.0-1.1) Eosinophils # (Auto) 0.1 x10^3/uL (0.0-0.7) Basophils # (Auto) 0.0 x10^3/uL (0.0-0.2) Sodium Level 134 mmol/L (136-145) Potassium Level 4.2 mmol/L (3.5-5.1) Chloride Level 98 mmol/L (98-107) Carbon Dioxide Level 24 mmol/L (21-32) Anion Gap 12 (6-14) Blood Urea Nitrogen 52 mg/dL (8-26) Creatinine 1.9 mg/dL (0.7-1.3) Estimated GFR (Cockcroft-Gault) 35.2 BUN/Creatinine Ratio 27 (6-20) Glucose Level 214 mg/dL (70-99) Calcium Level 9.3 mg/dL (8.5-10.1) Total Bilirubin 0.6 mg/dL (0.2-1.0) Aspartate Amino Transf (AST/SGOT) 16 U/L (15-37) Alanine Aminotransferase (ALT/SGPT) 21 U/L (16-63) Alkaline Phosphatase 84 U/L (46-116) Total Protein 7.6 g/dL (6.4-8.2) Albumin 2.9 g/dL (3.4-5.0) Albumin/Globulin Ratio 0.6 (1.0-1.7) Glucose (Fingerstick) 181 mg/dL (70-99) 137 mg/dL (70-99) Urine Collection Type Unknown Urine Color Yellow Urine Clarity Clear Urine pH 5.0 Urine Specific [place] 1.015 Urine Protein Negative mg/dL (NEG-TRACE) Urine Glucose (UA) Negative mg/dL (NEG) Urine Ketones (Stick) Negative mg/dL (NEG) Urine Blood Negative (NEG) Urine Nitrite Negative (NEG) Urine Bilirubin Negative (NEG) Urine Urobilinogen Dipstick 1.0 mg/dL (0.2 mg/dL) Urine Leukocyte Esterase Negative (NEG) Urine RBC 0 /HPF (0-2) Urine WBC 0 /HPF (0-4) Urine Squamous Epithelial Cells Few /LPF Urine Bacteria 0 /HPF (0-FEW) Urine Hyaline Casts Many /HPF Urine Mucus Mod /LPF Test 05/16/18 04:55 05/16/18 07:33 05/16/18 11:52 05/16/18 16:36 White Blood Count 10.7 x10^3/uL (4.0-11.0) Red Blood Count 3.05 x10^6/uL (4.30-5.70) Hemoglobin 8.9 g/dL (13.0-17.5) Hematocrit 26.8 % (39.0-53.0) Mean Corpuscular Volume 88 fL (79-100) Mean Corpuscular Hemoglobin 29 pg (25-35) Mean Corpuscular Hemoglobin Concent 33 g/dL (31-37) Red Cell Distribution Width 13.5 % (11.5-14.5) Platelet Count 233 x10^3/uL (140-400) Neutrophils (%) (Auto) 74 % (31-73) Lymphocytes (%) (Auto) 11 % (24-48) Monocytes (%) (Auto) 13 % (0-9) Eosinophils (%) (Auto) 2 % (0-3) Basophils (%) (Auto) 0 % (0-3) Neutrophils # (Auto) 7.9 x10^3uL (1.8-7.7) Lymphocytes # (Auto) 1.2 x10^3/uL (1.0-4.8) Monocytes # (Auto) 1.4 x10^3/uL (0.0-1.1) Eosinophils # (Auto) 0.2 x10^3/uL (0.0-0.7) Basophils # (Auto) 0.0 x10^3/uL (0.0-0.2) Sodium Level 137 mmol/L (136-145) Potassium Level 3.8 mmol/L (3.5-5.1) Chloride Level 101 mmol/L (98-107) Carbon Dioxide Level 25 mmol/L (21-32) Anion Gap 11 (6-14) Blood Urea Nitrogen 55 mg/dL (8-26) Creatinine 2.4 mg/dL (0.7-1.3) Estimated GFR (Cockcroft-Gault) 26.9 BUN/Creatinine Ratio 23 (6-20) Glucose Level 96 mg/dL (70-99) Calcium Level 9.1 mg/dL (8.5-10.1) Total Bilirubin 0.5 mg/dL (0.2-1.0) Aspartate Amino Transf (AST/SGOT) 19 U/L (15-37) Alanine Aminotransferase (ALT/SGPT) 22 U/L (16-63) Alkaline Phosphatase 77 U/L (46-116) Total Protein 7.2 g/dL (6.4-8.2) Albumin 2.7 g/dL (3.4-5.0) Albumin/Globulin Ratio 0.6 (1.0-1.7) Glucose (Fingerstick) 102 mg/dL (70-99) 168 mg/dL (70-99) 148 mg/dL (70-99) Test 05/16/18 20:34 05/16/18 21:09 Glucose (Fingerstick) 92 mg/dL (70-99) 77 mg/dL (70-99) Laboratory Tests Test 05/16/18 07:33 05/16/18 11:52 05/16/18 16:36 05/16/18 20:34 Glucose (Fingerstick) 102 mg/dL (70-99) 168 mg/dL (70-99) 148 mg/dL (70-99) 92 mg/dL (70-99) Test 05/16/18 21:09 Glucose (Fingerstick) 77 mg/dL (70-99) Medications Current Medications Ibuprofen (Motrin) 400 mg 1X ONCE PO Last administered on 05/15/18at 10:58; Start 05/15/18 at 10:30; Stop 05/15/18 at 10:31; Status DC Ondansetron HCl (Zofran) 4 mg PRN Q4HRS PRN IV NAUSEA/VOMITING; Start 05/15/18 at 14:15 Zolpidem Tartrate (Ambien) 5 mg PRN QHS PRN PO INSOMNIA Last administered on 05/16/18at 23:29; Start 05/15/18 at 14:15 Acetaminophen (Tylenol) 650 mg PRN Q4HRS PRN PO TEMP OVER 100.4F OR MILD PAIN Last administered on 05/16/18 23:29; Start 05/15/18 at 14:15 Clonidine HCl (Catapres) 0.1 mg PRN Q6HRS PRN PO SBP>160 OR DBP>90; Start at 14:15 Albuterol/ Ipratropium (Duoneb) 3 ml Q4HRS NEB Last administered on 05/17/18 04:28; Start 05/15/18 at 16:00 Guaifenesin (Robitussin) 200 mg PRN Q4HRS PRN PO COUGH Last administered on 05/15 20:15; Start 05/15/18 at 14:15 Lorazepam (Ativan) 0.5 mg PRN Q4HRS PRN PO ANXIETY / AGITATION Last administered on 05/16/18 23:29; Start 05/15/18 at 14:15 Enoxaparin Sodium (Lovenox 60mg Syringe) 60 mg Q12HR SQ ; Start 05/15/18 at 21:00 ; Status Cancel Aspirin (Jacquelin Aspirin) 162.5 mg DAILY PO Last administered on 05/16/18 08:50; Start 05/15/18 at 15:30 Atorvastatin Calcium (Lipitor) 20 mg QHS PO Last administered on 05/16/18 21:10 ; Start 05/15/18 at 21:00 Bupropion HCl (Wellbutrin Sr) 150 mg BID PO Last administered on 05/16/18 21:09 ; Start 05/15/18 at 21:00 Vitamin D (Vitamin D3) 2,000 unit DAILY PO Last administered on 05/16/18 08:51 ; Start 05/15/18 at 15:30 Furosemide (Lasix) 40 mg BID94 PO Last administered on 05/15/18 17:33; Start at 16:00; Stop 05/16/18 at 10:55; Status DC Gabapentin (Neurontin) 200 mg BIDWBKFT/AVE PO Last administered on 05/16/18 12: 21; Start 05/16/18 at 08:00 Gabapentin (Neurontin) 300 mg HS PO Last administered on 05/16/18 21:13; Start 05/15/18 at 21:00 Insulin Glargine (Lantus) 45 units QHS SQ Last administered on 05/16/18 21:14; Start 05/15/18 at 21:00 Lisinopril (Prinivil) 40 mg DAILY PO Last administered on 05/15/18 17:37; Start 05/15/18 at 15:30; Stop 05/16/18 at 10:55; Status DC Nystatin (Nystop) 15 ritu DAILY TP Last administered on 05/16/18 08:53; Start at 09:00 Oxycodone HCl (Roxicodone) 10 mg PRN Q4HRS PRN PO SEVERE PAIN Last administered on 05/16/18 14:57; Start 05/15/18 at 14:15 Pantoprazole Sodium (Protonix) 40 mg DAILYAC PO Last administered on 05/16/18 08:51; Start 05/15/18 at 15:30 Senna/Docusate Sodium (Senna Plus) 1 tab BID PO Last administered on 05/16/18 21:10; Start 05/15/18 at 21:00 Carvedilol (Coreg) 25 mg BIDWMEALS PO Last administered on 05/16/18 17:18; Start 05/15/18 at 17:00 Diphenhydramine HCl (Benadryl) 25 mg PRN Q6HRS PRN PO ALLERGIES; Start 05/15/18 at 14:30 Fluticasone Propionate (Flonase) 2 spray DAILY NS Last administered on 08:53; Start 05/16/18 at 09:00 Non-Formulary Medication (Glucosamine Hcl/ Chondr [place] A Na ([facility] Glucosamine- Chondr Tablet)) 2 each DAILY PO ; Start 05/16/18 at 09:00; Status UNV Hydralazine HCl (Apresoline) 50 mg TID PO Last administered on 05/15/18 20:14; Start 05/15/18 at 15:30 Insulin Human Lispro (HumaLOG) 30 units TIDWMEALS SQ Last administered on 17:22; Start 05/15/18 at 17:00 Lactobacillus Rhamnosus (Culturelle) 1 cap BID PO Last administered on 21:09; Start 05/15/18 at 21:00 Meloxicam (Mobic) 7.5 mg DAILY PO Last administered on 05/16/18at 08:52; Start at 15:30 Zinc Oxide (Zinc Oxide 20% Topical) 1 ritu BID TP Last administered on 05/16/18at 21:17; Start 05/15/18 at 21:00 Ondansetron HCl (Zofran) 4 mg PRN Q8HRS PRN IV NAUSEA/VOMITING; Start 05/15/18 at 14:30; Stop 05/16/18 at 14:29; Status DC Acetaminophen (Tylenol) 650 mg PRN Q4HRS PRN PO FEVER; Start 05/15/18 at 14:30; Stop 05/16/18 at 14:29; Status DC Morphine Sulfate (Morphine Sulfate) 2 mg PRN Q2HR PRN IV PAIN Last administered on 05/16/18at 08:48; Start 05/15/18 at 15:45 Heparin Sodium (Porcine) (Heparin Sodium) 5,000 unit Q8HRS SQ Last administered on 05/17/18at 05:40; Start 05/15/18 at 22:00 Methylprednisolone Acetate (DEPO-Medrol 80MG VIAL) 80 mg 1X ONCE INJ ; Start at 08:15; Stop 05/17/18 at 08:16 Lidocaine HCl (Xylocaine-Mpf 1% 2ml Vial) 2 ml 1X ONCE INJ ; Start 05/17/18 at 08:00; Stop 05/17/18 at 08:01 Active Scripts Active Meloxicam 7.5 Mg Tablet 7.5 Mg PO DAILY Oxycodone Hcl Immed.release (Oxycodone Hcl) 5 Mg Tablet 10 Mg PO PRN Q4HRS PRN Reported Novolog Flexpen (Insulin Aspart) 100 Unit/1 Ml Insuln.pen 30 SQ TIDWMEALS Aspirin 325 Mg Tablet 0.5 Tab PO DAILY Senna-S Tablet (Sennosides/Docusate Sodium) 1 Each Tablet 1 Each PO BID Nyamyc (Nystatin) 15 Gm Powder 15 Gm TP DAILY Culturelle (Lactobacillus Rhamnosus Gg) 1 Each Capsule 1 Each PO BIDWMEALS Lantus Solostar (Insulin Glargine,Hum.rec.anlog) 100 Unit/1 Ml Insuln.pen 45 Unit SQ QHS Hydralazine Hcl 25 Mg Tablet 2 Tab PO TID [facility] Glucosamine-Chondr Tablet (Glucosamine Hcl/Chondr [place] A Na) 1 Each Tablet 2 Each PO DAILY Gabapentin (Gabapentin) 300 Mg Capsule 300 Mg PO HS Gabapentin (Gabapentin) 100 Mg Capsule 200 Mg PO BIDWBKFT/AVE Flonase Allergy Relief (Fluticasone Propionate) 9.9 Ml [place].susp 2 Sprays NS DAILY Elta Seal Moisture Barrier (Zinc Oxide) 114 Gm Cream..g. 114 Gm TP BID Diphenhydramine Hcl 50 Mg Capsule 25 Mg PO Q6HRS PRN Vitamin D3 (Cholecalciferol (Vitamin D3)) 1,000 Unit Tablet 2,000 Unit PO DAILY Atorvastatin Calcium 20 Mg Tablet DAILY Venlafaxine Hcl Er (Venlafaxine Hcl) 150 Mg Cap.er.24h DAILY Furosemide 20 Mg Tablet 40 Mg BID Lisinopril 40 Mg Tablet 40 DAILY Carvedilol 25 Mg Tablet 25 BID Pantoprazole Sodium 40 Mg Tablet.dr DAILY Bupropion Hcl Sr (Bupropion Hcl) 150 Mg Tablet.er 150 BID Vitals/I & O Vital Sign - Last 24 Hours 05/16/18 05/16/18 05/16/18 05/16/18 08:00 08:00 08:00 08:00 Pulse 90 90 90 B/P (MAP) 94/45 94/45 94/45 O2 Delivery Room Air 05/16/18 05/16/18 05/16/18 05/16/18 08:48 09:18 10:41 11:00 Temp 98.7 98.7 Pulse 64 Resp 18 16 18 B/P (MAP) 99/70 (80) Pulse Ox 96 O2 Delivery Room Air Room Air Room Air Room Air 05/16/18 05/16/18 05/16/18 05/16/18 14:00 14:32 14:51 14:57 Pulse 88 88 Resp 16 B/P (MAP) 114/59 114/59 (77) Pulse Ox 96 O2 Delivery Room Air Room Air 05/16/18 05/16/18 05/16/18 05/16/18 15:57 17:18 19:00 19:27 Temp 98.6 98.6 Pulse 88 67 Resp 16 20 B/P (MAP) 114/59 90/40 (57) Pulse Ox 94 98 O2 Delivery Room Air Room Air Room Air 05/16/18 05/16/18 05/16/18 05/16/18 20:30 21:00 23:00 23:54 Temp 99.6 99.6 Pulse 67 83 Resp 20 B/P (MAP) 90/40 135/59 (84) Pulse Ox 94 98 O2 Delivery Room Air Room Air Room Air 05/17/18 05/17/18 03:00 04:29 Temp 98.5 98.5 Pulse 84 Resp 18 B/P (MAP) 102/59 (73) Pulse Ox 92 O2 Delivery Room Air Room Air Intake and Output 05/16/18 05/16/18 05/17/18 15:00 23:00 07:00 Intake Total 180 ml 1000 ml Output Total 350 ml 300 ml 300 ml Balance -170 ml -300 ml 700 ml JAYSON ROCHA MD May 17, 2018 07:29
[2018-05-17] MEDS ORDERED: LIDOCAINE 1% PF 2 ML VIAL. INJ ONE (08:00)
[2018-05-17] MEDS ORDERED: methylPREDNISolone ACETATE 80 MG/ML VIAL. INJ ONE (08:15)
[2018-05-17] MEDS ORDERED: ALBUTEROL SULFATE 2.5 MG/3 ML NEBU. NEB PRN (08:30)
[2018-05-17] MEDS: buPROPion SR 150 MG TABLET.SA PO SCH ×2 (08:39→22:05)
[2018-05-17] MEDS: PANTOPRAZOLE 40 MG TABLET.DR. PO SCH (08:40)
[2018-05-17] MEDS: CARVEDILOL 12.5 MG TABLET. PO SCH ×2 (08:40→17:47)
[2018-05-17] MEDS: LACTOBACILLUS RHAMNOSUS GG 1 CAPSULE. PO SCH ×2 (08:41→22:03)
[2018-05-17] MEDS: ASPIRIN 325 MG TABLET PO SCH (08:41)
[2018-05-17] MEDS: MELOXICAM 7.5 MG TABLET PO SCH (08:41)
[2018-05-17] MEDS: GABAPENTIN 300 MG CAPSULE. PO SCH ×2 (08:42→22:07)
[2018-05-17] MEDS: SENNOSIDES/DOCUSATE 8.6/50MG TABLET. PO SCH ×2 (08:42→22:05)
[2018-05-17] MEDS: FLUTICASONE 50MCG/NASAL SPRAY 16GM BOTTLE. NS SCH (08:43)
[2018-05-17] MEDS: GABAPENTIN 100 MG CAPSULE. PO SCH ×3 (08:50→22:03)
[2018-05-17] MEDS: CHOLECALCIFEROL (VITAMIN D3) 1,000 UNIT TABLET PO SCH (08:50)
[2018-05-17] MEDS: oxyCODONE IR 5 MG TABLET PO PRN ×2 (08:51→22:08)
[2018-05-17] MEDS: INSULIN LISPRO 300 UNITS/3 ML INSULN.PEN. SQ SCH ×3 (09:00→17:55)
--- NOTE | 2018-05-17 09:34 | PDOC ---
ORTHO PROGRESS NOTES Subjective No change patient's complaints today from a musculoskeletal standpoint. He has had more of a cough lately. Vitals Vital Signs Date Time Temp Pulse Resp B/P (MAP) Pulse Ox O2 Delivery O2 Flow Rate FiO2 05/17/18 08:51 18 Room Air 05/17/18 08:40 82 149/56 05/17/18 07:29 96 05/17/18 07:00 97.8 97.8 Labs Laboratory Tests Test 05/15/18 12:34 05/15/18 16:35 05/15/18 18:40 05/15/18 19:56 White Blood Count 13.0 x10^3/uL (4.0-11.0) Red Blood Count 3.13 x10^6/uL (4.30-5.70) Hemoglobin 9.0 g/dL (13.0-17.5) Hematocrit 27.2 % (39.0-53.0) Mean Corpuscular Volume 87 fL (79-100) Mean Corpuscular Hemoglobin 29 pg (25-35) Mean Corpuscular Hemoglobin Concent 33 g/dL (31-37) Red Cell Distribution Width 13.4 % (11.5-14.5) Platelet Count 249 x10^3/uL (140-400) Neutrophils (%) (Auto) 82 % (31-73) Lymphocytes (%) (Auto) 7 % (24-48) Monocytes (%) (Auto) 10 % (0-9) Eosinophils (%) (Auto) 1 % (0-3) Basophils (%) (Auto) 0 % (0-3) Neutrophils # (Auto) 10.7 x10^3uL (1.8-7.7) Lymphocytes # (Auto) 0.9 x10^3/uL (1.0-4.8) Monocytes # (Auto) 1.3 x10^3/uL (0.0-1.1) Eosinophils # (Auto) 0.1 x10^3/uL (0.0-0.7) Basophils # (Auto) 0.0 x10^3/uL (0.0-0.2) Sodium Level 134 mmol/L (136-145) Potassium Level 4.2 mmol/L (3.5-5.1) Chloride Level 98 mmol/L (98-107) Carbon Dioxide Level 24 mmol/L (21-32) Anion Gap 12 (6-14) Blood Urea Nitrogen 52 mg/dL (8-26) Creatinine 1.9 mg/dL (0.7-1.3) Estimated GFR (Cockcroft-Gault) 35.2 BUN/Creatinine Ratio 27 (6-20) Glucose Level 214 mg/dL (70-99) Calcium Level 9.3 mg/dL (8.5-10.1) Total Bilirubin 0.6 mg/dL (0.2-1.0) Aspartate Amino Transf (AST/SGOT) 16 U/L (15-37) Alanine Aminotransferase (ALT/SGPT) 21 U/L (16-63) Alkaline Phosphatase 84 U/L (46-116) Total Protein 7.6 g/dL (6.4-8.2) Albumin 2.9 g/dL (3.4-5.0) Albumin/Globulin Ratio 0.6 (1.0-1.7) Glucose (Fingerstick) 181 mg/dL (70-99) 137 mg/dL (70-99) Urine Collection Type Unknown Urine Color Yellow Urine Clarity Clear Urine pH 5.0 Urine Specific [place] 1.015 Urine Protein Negative mg/dL (NEG-TRACE) Urine Glucose (UA) Negative mg/dL (NEG) Urine Ketones (Stick) Negative mg/dL (NEG) Urine Blood Negative (NEG) Urine Nitrite Negative (NEG) Urine Bilirubin Negative (NEG) Urine Urobilinogen Dipstick 1.0 mg/dL (0.2 mg/dL) Urine Leukocyte Esterase Negative (NEG) Urine RBC 0 /HPF (0-2) Urine WBC 0 /HPF (0-4) Urine Squamous Epithelial Cells Few /LPF Urine Bacteria 0 /HPF (0-FEW) Urine Hyaline Casts Many /HPF Urine Mucus Mod /LPF Test 05/16/18 04:55 05/16/18 07:33 05/16/18 11:52 05/16/18 16:36 White Blood Count 10.7 x10^3/uL (4.0-11.0) Red Blood Count 3.05 x10^6/uL (4.30-5.70) Hemoglobin 8.9 g/dL (13.0-17.5) Hematocrit 26.8 % (39.0-53.0) Mean Corpuscular Volume 88 fL (79-100) Mean Corpuscular Hemoglobin 29 pg (25-35) Mean Corpuscular Hemoglobin Concent 33 g/dL (31-37) Red Cell Distribution Width 13.5 % (11.5-14.5) Platelet Count 233 x10^3/uL (140-400) Neutrophils (%) (Auto) 74 % (31-73) Lymphocytes (%) (Auto) 11 % (24-48) Monocytes (%) (Auto) 13 % (0-9) Eosinophils (%) (Auto) 2 % (0-3) Basophils (%) (Auto) 0 % (0-3) Neutrophils # (Auto) 7.9 x10^3uL (1.8-7.7) Lymphocytes # (Auto) 1.2 x10^3/uL (1.0-4.8) Monocytes # (Auto) 1.4 x10^3/uL (0.0-1.1) Eosinophils # (Auto) 0.2 x10^3/uL (0.0-0.7) Basophils # (Auto) 0.0 x10^3/uL (0.0-0.2) Sodium Level 137 mmol/L (136-145) Potassium Level 3.8 mmol/L (3.5-5.1) Chloride Level 101 mmol/L (98-107) Carbon Dioxide Level 25 mmol/L (21-32) Anion Gap 11 (6-14) Blood Urea Nitrogen 55 mg/dL (8-26) Creatinine 2.4 mg/dL (0.7-1.3) Estimated GFR (Cockcroft-Gault) 26.9 BUN/Creatinine Ratio 23 (6-20) Glucose Level 96 mg/dL (70-99) Calcium Level 9.1 mg/dL (8.5-10.1) Total Bilirubin 0.5 mg/dL (0.2-1.0) Aspartate Amino Transf (AST/SGOT) 19 U/L (15-37) Alanine Aminotransferase (ALT/SGPT) 22 U/L (16-63) Alkaline Phosphatase 77 U/L (46-116) Total Protein 7.2 g/dL (6.4-8.2) Albumin 2.7 g/dL (3.4-5.0) Albumin/Globulin Ratio 0.6 (1.0-1.7) Glucose (Fingerstick) 102 mg/dL (70-99) 168 mg/dL (70-99) 148 mg/dL (70-99) Test 05/16/18 20:34 05/16/18 21:09 05/17/18 07:15 Glucose (Fingerstick) 92 mg/dL (70-99) 77 mg/dL (70-99) 114 mg/dL (70-99) Laboratory Tests Test 05/16/18 11:52 05/16/18 16:36 05/16/18 20:34 05/16/18 21:09 Glucose (Fingerstick) 168 mg/dL (70-99) 148 mg/dL (70-99) 92 mg/dL (70-99) 77 mg/dL (70-99) Test 05/17/18 07:15 Glucose (Fingerstick) 114 mg/dL (70-99) Notes He is resting, little bit drowsy, he does follow commands and answer questions. Mild effusion in his knee. Knee is stable. Skin over his knee is unremarkable. The right great toe is unchanged in appearance. Assessment and Plan After informed consent and a sterile call prep, I injected his knee with 80 mg of Depo-Medrol and local anesthetic through a superolateral portal without complication. The area was cleansed and dried and a sterile dressing was applied. This was well tolerated by the patient. He was counseled as far as what to expect. Using a rongeur, I debrided the thickened callus at the periphery of the wound at his great toe. I debrided the base of the wound as well. It was down to subcutaneous tissue but had granulation tissue present. I was not able to go any deeper than this. Local pressure and gauze were used for hemostasis at the end. Wound care was discussed with his nurse. I do not anticipate any further need for orthopedic intervention at this point. I would recommend wound care for follow-up. ZARIA MAO II, MD May 17, 2018 09:34
[2018-05-17 11:00] VITALS: BP 154/83
--- NOTE | 2018-05-17 11:46 | RAD ---
CT chest without contrast. HISTORY: Increasing rhonchi, mass CT scan of the chest was done without contrast. Thyroid is homogeneous. There is extensive fat in the mediastinum. The aorta is tortuous. There is no mediastinal mass. There is no left hilar mass. There is a consolidating infiltrate in the left lower lobe possibly an acute pneumonia although atelectasis is also possible. There is a nodular density in the right lung poorly seen on the chest x-ray. Focal infiltrate is possible. Follow-up would be of benefit to exclude an underlying nodule. IMPRESSION: 1. Tortuous aorta and prominent mediastinal fat. 2. Consolidating infiltrate left lower lobe suggesting pneumonia although atelectasis is also possible. 3. Small focal irregular infiltrate or nodule on the right follow-up would be of benefit. PQRS Compliance Statement: One or more of the following individualized dose reduction techniques were utilized for this examination: 1. Automated exposure control 2. Adjustment of the mA and/or kV according to patient size 3. Use of iterative reconstruction technique Electronically signed by: Baldemar Garcia MD (05/17/2018 11:43 AM) [facility]
[2018-05-17] MEDS: NYSTATIN TOPICAL POWDER 15GM BOTTLE. TP SCH (13:33)
[2018-05-17] MEDS: ZINC OXIDE 20% TOPICAL OINTMENT 28GM TUBE. TP SCH ×2 (13:33→22:12)
[2018-05-17 15:00] VITALS: BP 130/55
[2018-05-17 19:00] VITALS: BP 135/90
[2018-05-17] MEDS: BUDESONIDE 0.5 MG/2 ML NEBU. NEB SCH (20:07)
[2018-05-17] MEDS: ATORVASTATIN CALCIUM 20 MG TABLET PO SCH (22:02)
[2018-05-17] MEDS: INSULIN GLARGINE 300 UNITS/3 ML INSULN.PEN. SQ SCH (22:09)
[2018-05-17 23:00] VITALS: BP 130/63
--- NOTE | 2018-05-18 00:15 | NUR ---
Patient having AMS, talking to himself in the room. Easily oriented, however does trigger positive sepsis screen. Patient has positive CT of chest for pneumonia. MD contacted and notified of positive sepsis screen and AMS, Cr 2.4 2 days ago. Rec'd orders for Zosyn per pharmacy, and CBC, BMP in A.M. MD advised no Lactic Acid needed at this time and start IVF NS 75/hr. Patient has allergy to Zosyn. MD contacted again to change IV Abx, rec'd orders for Vanco per pharmacy and Levaquin 250mg Q24. RN encouraged IS, patient pulled 3000. Will continue to monitor closely, bed alarm activated.
[2018-05-18] MEDS: IV NORMAL SALINE 1000ML BAG 1,000 ML IV SCH ×2 (00:44→16:08)
[2018-05-18] MEDS ORDERED: VANCOMYCIN 2 GM in IV NORMAL SALINE 500ML BAG 500 ML IV ONE (01:00)
[2018-05-18 03:32] VITALS: BP 142/67
[2018-05-18] MEDS: IPRATRPIUM/ALBUTEROL 0.5/2.5MG 3 ML NEBU. NEB SCH ×6 (03:52→23:49)
[2018-05-18 05:45] LABS: ALBUMIN 2.3 g/dL (3.4-5.0); CALCIUM 9.1 mg/dL (8.5-10.1); CREATININE 1.7 mg/dL (0.7-1.3); PHOSPHORUS 2.4 mg/dL (2.6-4.7); POTASSIUM 4.5 mmol/L (3.5-5.1)
[2018-05-18 05:47] LABS: BASO % 0 % (0-3); EOS % 0 % (0-3); HEMATOCRIT 26.9 % (39.0-53.0); HEMOGLOBIN 8.8 g/dL (13.0-17.5); LYMPH # 0.4 x10^3/uL (1.0-4.8); LYMPH % 2 % (24-48); MEAN CORPUSCULAR HEMOGLOBIN 29 pg (25-35); MEAN CORPUSCULAR HGB CONC 33 g/dL (31-37); MEAN CORPUSCULAR VOLUME 87 fL (79-100); MONO # 0.4 x10^3/uL (0.0-1.1); MONO % 3 % (0-9); NEUT # 14.7 x10^3uL (1.8-7.7); NEUT % 95 % (31-73); PLATELET COUNT 258 x10^3/uL (140-400); RED BLOOD COUNT 3.07 x10^6/uL (4.30-5.70); RED CELL DISTRIBUTION WIDTH 13.4 % (11.5-14.5); WHITE BLOOD COUNT 15.6 x10^3/uL (4.0-11.0)
[2018-05-18] MEDS: PANTOPRAZOLE 40 MG TABLET.DR. PO SCH (06:18)
[2018-05-18] MEDS: HEPARIN for SUB-Q USE 5,000 UNIT/ML VIAL. SQ SCH ×3 (06:18→21:37)
[2018-05-18] MEDS: oxyCODONE IR 5 MG TABLET PO PRN (06:22)
[2018-05-18 07:00] VITALS: BP 140/69
[2018-05-18] MEDS: BUDESONIDE 0.5 MG/2 ML NEBU. NEB SCH ×2 (07:41→19:43)
[2018-05-18 07:51] LABS: % LYMPHS 2 % (24-48); % MONOS 1 % (0-10); % SEGS 97 % (35-66); PLT ESTIMATE ADEQUATE (ADEQUATE)
[2018-05-18 07:57] LABS: INFLUENZA A PATIENT NEGATIVE (NEGATIVE); INFLUENZA B PATIENT NEGATIVE (NEGATIVE)
[2018-05-18] MEDS: guaiFENesin DM 200MG/20MG 10 ML SYRUP PO PRN ×2 (08:04→21:24)
[2018-05-18] MEDS: MELOXICAM 7.5 MG TABLET PO SCH (08:05)
[2018-05-18] MEDS: LACTOBACILLUS RHAMNOSUS GG 1 CAPSULE. PO SCH ×2 (08:05→21:16)
[2018-05-18] MEDS: SENNOSIDES/DOCUSATE 8.6/50MG TABLET. PO SCH ×2 (08:05→21:18)
[2018-05-18] MEDS: CHOLECALCIFEROL (VITAMIN D3) 1,000 UNIT TABLET PO SCH (08:06)
[2018-05-18] MEDS: ASPIRIN 325 MG TABLET PO SCH (08:06)
[2018-05-18] MEDS: CARVEDILOL 12.5 MG TABLET. PO SCH ×2 (08:06→17:20)
[2018-05-18] MEDS: NYSTATIN TOPICAL POWDER 15GM BOTTLE. TP SCH (08:07)
[2018-05-18] MEDS: FLUTICASONE 50MCG/NASAL SPRAY 16GM BOTTLE. NS SCH (08:07)
[2018-05-18] MEDS: buPROPion SR 150 MG TABLET.SA PO SCH (08:07)
[2018-05-18] MEDS: ZINC OXIDE 20% TOPICAL OINTMENT 28GM TUBE. TP SCH ×2 (08:07→21:18)
[2018-05-18] MEDS: INSULIN LISPRO 300 UNITS/3 ML INSULN.PEN. SQ SCH ×6 (08:13→17:25)
[2018-05-18] MEDS: VANCOMYCIN PER PHARMACY MC PRN (10:49)
--- NOTE | 2018-05-18 10:49 | NUR ---
Pharmacy Vancomycin Dosing Note S:Consulted to monitor and dose vancomycin started 05/18/18. O:LACI RASCON is a 72 year old M with pneumonia. Height: 5 feet, 9 inches Weight: 172.4 kg Dosing Weight: Other Antibiotics: LEVAQUIN 500 MG IV Q24HRS LABS: Last BUN: 52 Last Creatinine: 1.7 Creatinine Clearance: 63 mL/min Last WBC: 15.6 Last Procalcitonin: DIAMOND - not applicable Tmax (past 24 hours): 98.7 Microbiology: NONE ORDERED I/O: 2950/1600 A: Patient requires vancomycin for pneumonia, goal troug 15-20 mcg/ml. Patient's SCr is 1.7 (improving) with an eCrCl of 63 ml/min. This CrCl likely over-estimated due to patient's weight, therefore will start with vancomycin dosed every 18 hours: P: 1. Initiate Vancomycin 2000 mg IV q18h 2. Follow up Trough level on 05/19/18 at 1330 3. Pharmacy will continue to monitor, follow and adjust therapy as needed. KIM ZHANG [facility], 05/18/18 [id number]
[2018-05-18 11:00] VITALS: BP 131/62
--- NOTE | 2018-05-18 11:29 | PDOC ---
PROGRESS NOTES Chief Complaint Chief Complaint Severe bilateral knee osteoarthritis Inability to care for self Morbid obesity with a BMI of 56 Impaired mobility as a consequence of the severe osteoarthritis Leukocytosis which may be reactive but in light of his multiple skin lesions cannot rule out an infection Diabetic right great toe ulcer Hyponatremia of no clinical consequence Normocytic anemia of chronic inflammation Hypertension Dyslipidemia History of diabetes mellitus type 2 insulin requiring History of Present Illness History of Present Illness Very dry skin lower extremity hence constantly itching Multiple old scars because of constant scratching Relay stories of multiple falls he takes care of his sick at home too But seemingly agreeable to rehabilitation if PT would recommend Last BM was 1 week ago Uses CPAP at home but unknown settings GAit unsteady, high fall risk-has multiple gadgets at home already PLAN: Ask RT to help with CPAP settings Trial of Eucerin scheduled Wound care consult as recommended by orthopedics Physiatry also consulted Await formal PT recommendations Involve social services director for rehabilitation as needed dw with RN and patient Vitals Vitals Vital Signs Date Time Temp Pulse Resp B/P (MAP) Pulse Ox O2 Delivery O2 Flow Rate FiO2 05/18/18 08:07 94 140/69 05/18/18 07:42 95 Room Air 05/18/18 07:00 98.7 18 98.7 Physical Exam General: Alert, Oriented X3, Cooperative Heart: Regular rate, Normal S1, Normal S2 Lungs: Clear Abdomen: Normal bowel sounds, Soft Extremities: No clubbing, No cyanosis, Other (Tender, swollen legs) Skin: Other (Gluteal bruising) Labs LABS Laboratory Tests Test 05/17/18 11:30 05/17/18 16:55 05/17/18 20:47 05/18/18 04:40 Glucose (Fingerstick) 214 mg/dL (70-99) 198 mg/dL (70-99) 263 mg/dL (70-99) White Blood Count 15.6 x10^3/uL (4.0-11.0) Red Blood Count 3.07 x10^6/uL (4.30-5.70) Hemoglobin 8.8 g/dL (13.0-17.5) Hematocrit 26.9 % (39.0-53.0) Mean Corpuscular Volume 87 fL (79-100) Mean Corpuscular Hemoglobin 29 pg (25-35) Mean Corpuscular Hemoglobin Concent 33 g/dL (31-37) Red Cell Distribution Width 13.4 % (11.5-14.5) Platelet Count 258 x10^3/uL (140-400) Neutrophils (%) (Auto) 95 % (31-73) Lymphocytes (%) (Auto) 2 % (24-48) Monocytes (%) (Auto) 3 % (0-9) Eosinophils (%) (Auto) 0 % (0-3) Basophils (%) (Auto) 0 % (0-3) Neutrophils # (Auto) 14.7 x10^3uL (1.8-7.7) Lymphocytes # (Auto) 0.4 x10^3/uL (1.0-4.8) Monocytes # (Auto) 0.4 x10^3/uL (0.0-1.1) Eosinophils # (Auto) 0.0 x10^3/uL (0.0-0.7) Basophils # (Auto) 0.0 x10^3/uL (0.0-0.2) Segmented Neutrophils % 97 % (35-66) Lymphocytes % 2 % (24-48) Monocytes % 1 % (0-10) Platelet Estimate Adequate (ADEQUATE) Sodium Level 138 mmol/L (136-145) Potassium Level 4.5 mmol/L (3.5-5.1) Chloride Level 102 mmol/L (98-107) Carbon Dioxide Level 23 mmol/L (21-32) Anion Gap 13 (6-14) Blood Urea Nitrogen 52 mg/dL (8-26) Creatinine 1.7 mg/dL (0.7-1.3) Estimated GFR (Cockcroft-Gault) 40.0 Glucose Level 310 mg/dL (70-99) Calcium Level 9.1 mg/dL (8.5-10.1) Phosphorus Level 2.4 mg/dL (2.6-4.7) Albumin 2.3 g/dL (3.4-5.0) Procalcitonin 0.14 ng/mL (0.00-0.10) Test 05/18/18 07:13 05/18/18 07:25 05/18/18 11:03 Glucose (Fingerstick) 295 mg/dL (70-99) 226 mg/dL (70-99) Influenza Type A Antigen Negative (NEGATIVE) Influenza Type B Antigen Negative (NEGATIVE) Review of Systems Review of Systems Itchy skin, weak, gait unsteady, the rest of ROS 14 point negative Assessment and Plan Assessmemt and Plan Problems Medical Problems: (1) Chronic knee pain Status: Acute Comment Review of Relevant I have reviewed the following items minnie (where applicable) has been applied. Labs Laboratory Tests Test 05/16/18 11:52 05/16/18 16:36 05/16/18 20:34 05/16/18 21:09 Glucose (Fingerstick) 168 mg/dL (70-99) 148 mg/dL (70-99) 92 mg/dL (70-99) 77 mg/dL (70-99) Test 05/17/18 07:15 05/17/18 11:30 05/17/18 16:55 05/17/18 20:47 Glucose (Fingerstick) 114 mg/dL (70-99) 214 mg/dL (70-99) 198 mg/dL (70-99) 263 mg/dL (70-99) Test 05/18/18 04:40 05/18/18 07:13 05/18/18 07:25 05/18/18 11:03 White Blood Count 15.6 x10^3/uL (4.0-11.0) Red Blood Count 3.07 x10^6/uL (4.30-5.70) Hemoglobin 8.8 g/dL (13.0-17.5) Hematocrit 26.9 % (39.0-53.0) Mean Corpuscular Volume 87 fL (79-100) Mean Corpuscular Hemoglobin 29 pg (25-35) Mean Corpuscular Hemoglobin Concent 33 g/dL (31-37) Red Cell Distribution Width 13.4 % (11.5-14.5) Platelet Count 258 x10^3/uL (140-400) Neutrophils (%) (Auto) 95 % (31-73) Lymphocytes (%) (Auto) 2 % (24-48) Monocytes (%) (Auto) 3 % (0-9) Eosinophils (%) (Auto) 0 % (0-3) Basophils (%) (Auto) 0 % (0-3) Neutrophils # (Auto) 14.7 x10^3uL (1.8-7.7) Lymphocytes # (Auto) 0.4 x10^3/uL (1.0-4.8) Monocytes # (Auto) 0.4 x10^3/uL (0.0-1.1) Eosinophils # (Auto) 0.0 x10^3/uL (0.0-0.7) Basophils # (Auto) 0.0 x10^3/uL (0.0-0.2) Segmented Neutrophils % 97 % (35-66) Lymphocytes % 2 % (24-48) Monocytes % 1 % (0-10) Platelet Estimate Adequate (ADEQUATE) Sodium Level 138 mmol/L (136-145) Potassium Level 4.5 mmol/L (3.5-5.1) Chloride Level 102 mmol/L (98-107) Carbon Dioxide Level 23 mmol/L (21-32) Anion Gap 13 (6-14) Blood Urea Nitrogen 52 mg/dL (8-26) Creatinine 1.7 mg/dL (0.7-1.3) Estimated GFR (Cockcroft-Gault) 40.0 Glucose Level 310 mg/dL (70-99) Calcium Level 9.1 mg/dL (8.5-10.1) Phosphorus Level 2.4 mg/dL (2.6-4.7) Albumin 2.3 g/dL (3.4-5.0) Procalcitonin 0.14 ng/mL (0.00-0.10) Glucose (Fingerstick) 295 mg/dL (70-99) 226 mg/dL (70-99) Influenza Type A Antigen Negative (NEGATIVE) Influenza Type B Antigen Negative (NEGATIVE) Laboratory Tests Test 05/17/18 11:30 05/17/18 16:55 05/17/18 20:47 05/18/18 04:40 Glucose (Fingerstick) 214 mg/dL (70-99) 198 mg/dL (70-99) 263 mg/dL (70-99) White Blood Count 15.6 x10^3/uL (4.0-11.0) Red Blood Count 3.07 x10^6/uL (4.30-5.70) Hemoglobin 8.8 g/dL (13.0-17.5) Hematocrit 26.9 % (39.0-53.0) Mean Corpuscular Volume 87 fL (79-100) Mean Corpuscular Hemoglobin 29 pg (25-35) Mean Corpuscular Hemoglobin Concent 33 g/dL (31-37) Red Cell Distribution Width 13.4 % (11.5-14.5) Platelet Count 258 x10^3/uL (140-400) Neutrophils (%) (Auto) 95 % (31-73) Lymphocytes (%) (Auto) 2 % (24-48) Monocytes (%) (Auto) 3 % (0-9) Eosinophils (%) (Auto) 0 % (0-3) Basophils (%) (Auto) 0 % (0-3) Neutrophils # (Auto) 14.7 x10^3uL (1.8-7.7) Lymphocytes # (Auto) 0.4 x10^3/uL (1.0-4.8) Monocytes # (Auto) 0.4 x10^3/uL (0.0-1.1) Eosinophils # (Auto) 0.0 x10^3/uL (0.0-0.7) Basophils # (Auto) 0.0 x10^3/uL (0.0-0.2) Segmented Neutrophils % 97 % (35-66) Lymphocytes % 2 % (24-48) Monocytes % 1 % (0-10) Platelet Estimate Adequate (ADEQUATE) Sodium Level 138 mmol/L (136-145) Potassium Level 4.5 mmol/L (3.5-5.1) Chloride Level 102 mmol/L (98-107) Carbon Dioxide Level 23 mmol/L (21-32) Anion Gap 13 (6-14) Blood Urea Nitrogen 52 mg/dL (8-26) Creatinine 1.7 mg/dL (0.7-1.3) Estimated GFR (Cockcroft-Gault) 40.0 Glucose Level 310 mg/dL (70-99) Calcium Level 9.1 mg/dL (8.5-10.1) Phosphorus Level 2.4 mg/dL (2.6-4.7) Albumin 2.3 g/dL (3.4-5.0) Procalcitonin 0.14 ng/mL (0.00-0.10) Test 05/18/18 07:13 05/18/18 07:25 05/18/18 11:03 Glucose (Fingerstick) 295 mg/dL (70-99) 226 mg/dL (70-99) Influenza Type A Antigen Negative (NEGATIVE) Influenza Type B Antigen Negative (NEGATIVE) Medications Current Medications Ibuprofen (Motrin) 400 mg 1X ONCE PO Last administered on 05/15/18 10:58; Start 05/15/18 at 10:30; Stop 05/15/18 at 10:31; Status DC Ondansetron HCl (Zofran) 4 mg PRN Q4HRS PRN IV NAUSEA/VOMITING; Start 05/15/18 at 14:15 Zolpidem Tartrate (Ambien) 5 mg PRN QHS PRN PO INSOMNIA Last administered on 23:29; Start 05/15/18 at 14:15; Stop 05/17/18 at 23:35; Status DC Acetaminophen (Tylenol) 650 mg PRN Q4HRS PRN PO TEMP OVER 100.4F OR MILD PAIN Last administered on 05/16/18 23:29; Start 05/15/18 at 14:15 Clonidine HCl (Catapres) 0.1 mg PRN Q6HRS PRN PO SBP>160 OR DBP>90; Start at 14:15 Albuterol/ Ipratropium (Duoneb) 3 ml Q4HRS NEB Last administered on 05/18/18 07:41; Start 05/15/18 at 16:00 Guaifenesin (Robitussin) 200 mg PRN Q4HRS PRN PO COUGH, 2nd CHOICE Last administered on 05/15/18 20:15; Start 05/15/18 at 14:15 Lorazepam (Ativan) 0.5 mg PRN Q4HRS PRN PO ANXIETY / AGITATION Last administered on 05/16/18 23:29; Start 05/15/18 at 14:15 Enoxaparin Sodium (Lovenox 60mg Syringe) 60 mg Q12HR SQ ; Start 05/15/18 at 21:00 ; Status Cancel Aspirin (Jacquelin Aspirin) 162.5 mg DAILY PO Last administered on 05/18/18 08:06 ; Start 05/15/18 at 15:30 Atorvastatin Calcium (Lipitor) 20 mg QHS PO Last administered on 05/17/18 22: 02; Start 05/15/18 at 21:00 Bupropion HCl (Wellbutrin Sr) 150 mg BID PO Last administered on 05/18/18 08: 07; Start 05/15/18 at 21:00 Vitamin D (Vitamin D3) 2,000 unit DAILY PO Last administered on 05/18/18 08:06 ; Start 05/15/18 at 15:30 Furosemide (Lasix) 40 mg BID94 PO Last administered on 05/15/18 17:33; Start at 16:00; Stop 05/16/18 at 10:55; Status DC Gabapentin (Neurontin) 200 mg BIDWBKFT/AVE PO Last administered on 05/17/18 22 :03; Start 05/16/18 at 08:00 Gabapentin (Neurontin) 300 mg HS PO Last administered on 05/17/18 22:07; Start 05/15/18 at 21:00 Insulin Glargine (Lantus) 45 units QHS SQ Last administered on 05/17/18 22:09 ; Start 05/15/18 at 21:00 Lisinopril (Prinivil) 40 mg DAILY PO Last administered on 05/15/18 17:37; Start 05/15/18 at 15:30; Stop 05/16/18 at 10:55; Status DC Nystatin (Nystop) 15 ritu DAILY TP Last administered on 05/18/18 08:07; Start 05/16/18 at 09:00 Oxycodone HCl (Roxicodone) 10 mg PRN Q4HRS PRN PO MODERATE TO SEVERE PAIN Last administered on 05/18/18 06:22; Start 05/15/18 at 14:15 Pantoprazole Sodium (Protonix) 40 mg DAILYAC PO Last administered on 05/18/18 06:18; Start 05/15/18 at 15:30 Senna/Docusate Sodium (Senna Plus) 1 tab BID PO Last administered on 05/18/18 08:05; Start 05/15/18 at 21:00 Carvedilol (Coreg) 25 mg BIDWMEALS PO Last administered on 05/18/18 08:06; Start 05/15/18 at 17:00 Diphenhydramine HCl (Benadryl) 25 mg PRN Q6HRS PRN PO ALLERGIES; Start 05/15/18 at 14:30 Fluticasone Propionate (Flonase) 2 spray DAILY NS Last administered on 08:07; Start 05/16/18 at 09:00 Non-Formulary Medication (Glucosamine Hcl/ Chondr [place] A Na ([facility] Glucosamine- Chondr Tablet)) 2 each DAILY PO ; Start 05/16/18 at 09:00; Status UNV Hydralazine HCl (Apresoline) 50 mg TID PO Last administered on 05/18/18 08:07 ; Start 05/15/18 at 15:30 Insulin Human Lispro (HumaLOG) 30 units TIDWMEALS SQ Last administered on 08:13; Start 05/15/18 at 17:00 Lactobacillus Rhamnosus (Culturelle) 1 cap BID PO Last administered on 08:05; Start 05/15/18 at 21:00 Meloxicam (Mobic) 7.5 mg DAILY PO Last administered on 05/18/18 08:05; Start 05/15/18 at 15:30 Zinc Oxide (Zinc Oxide 20% Topical) 1 ritu BID TP Last administered on 08:07; Start 05/15/18 at 21:00 Ondansetron HCl (Zofran) 4 mg PRN Q8HRS PRN IV NAUSEA/VOMITING; Start 05/15/18 at 14:30; Stop 05/16/18 at 14:29; Status DC Acetaminophen (Tylenol) 650 mg PRN Q4HRS PRN PO FEVER; Start 05/15/18 at 14:30; Stop 05/16/18 at 14:29; Status DC Morphine Sulfate (Morphine Sulfate) 2 mg PRN Q2HR PRN IV PAIN Last administered on 05/16/18 08:48; Start 05/15/18 at 15:45 Heparin Sodium (Porcine) (Heparin Sodium) 5,000 unit Q8HRS SQ Last administered on 05/18/18 06:18; Start 05/15/18 at 22:00 Methylprednisolone Acetate (DEPO-Medrol 80MG VIAL) 80 mg 1X ONCE INJ Last administered on 05/17/18 08:49; Start 05/17/18 at 08:15; Stop 05/17/18 at 08:16 ; Status DC Lidocaine HCl (Xylocaine-Mpf 1% 2ml Vial) 2 ml 1X ONCE INJ Last administered on 3/10/19at 08:50; Start 05/17/18 at 08:00; Stop 05/17/18 at 08:01; Status DC Budesonide (Pulmicort) 0.5 mg RTBID NEB Last administered on 05/18/18at 07:41; Start 05/17/18 at 20:00 Albuterol Sulfate (Ventolin Neb Soln) 2.5 mg PRN Q4HRS PRN NEB SHORTNESS OF BREATH; Start 05/17/18 at 08:30 Guaifenesin (Robitussin Dm) 10 ml PRN Q6HRS PRN PO COUGH, 1st CHOICE Last administered on 05/18/18at 08:04; Start 05/17/18 at 08:30 Sodium Chloride 1,000 ml @ 75 mls/hr [id number] IV Last administered on at 00:44; Start 05/18/18 at 00:30 Levofloxacin/ Dextrose 50 ml @ 50 mls/hr Q24H IV Last administered on at 00:45; Start 05/18/18 at 00:30; Stop 05/18/18 at 02:00; Status DC Vancomycin HCl (Vanco Per Pharmacy) 1 each PRN DAILY PRN MC SEE COMMENTS Last administered on 05/18/18at 10:49; Start 05/18/18 at 00:30 Vancomycin HCl 2 gm/Sodium Chloride 500 ml @ 250 mls/hr 1X ONCE IV Last administered on 05/18/18at 02:15; Start 05/18/18 at 01:00; Stop 05/18/18 at 02:59 ; Status DC Levofloxacin/ Dextrose 50 ml @ 50 mls/hr Q24H IV ; Start 05/18/18 at 22:00; Stop 05/18/18 at 22:00; Status DC Insulin Human Lispro (HumaLOG) 0-7 UNITS TIDWMEALS SQ ; Start 05/18/18 at 09:30 Dextrose (Dextrose 50%-Water Syringe) 12.5 gm PRN Q15MIN PRN IV SEE COMMENTS; Start 05/18/18 at 09:30 Levofloxacin/ Dextrose 100 ml @ 100 mls/hr Q24H IV ; Start 05/18/18 at 21:00 Vancomycin HCl 2 gm/Sodium Chloride 500 ml @ 250 mls/hr Q18H IV ; Start at 20:00 Vancomycin HCl (Vancomycin Trough Level) 1 each 1X ONCE MC ; Start 05/19/18 at 13:30; Stop 05/19/18 at 13:31 Active Scripts Active Meloxicam 7.5 Mg Tablet 7.5 Mg PO DAILY Oxycodone Hcl Immed.release (Oxycodone Hcl) 5 Mg Tablet 10 Mg PO PRN Q4HRS PRN Reported Novolog Flexpen (Insulin Aspart) 100 Unit/1 Ml Insuln.pen 30 SQ TIDWMEALS Aspirin 325 Mg Tablet 0.5 Tab PO DAILY Senna-S Tablet (Sennosides/Docusate Sodium) 1 Each Tablet 1 Each PO BID Nyamyc (Nystatin) 15 Gm Powder 15 Gm TP DAILY Culturelle (Lactobacillus Rhamnosus Gg) 1 Each Capsule 1 Each PO BIDWMEALS Lantus Solostar (Insulin Glargine,Hum.rec.anlog) 100 Unit/1 Ml Insuln.pen 45 Unit SQ QHS Hydralazine Hcl 25 Mg Tablet 2 Tab PO TID [facility]vs Glucosamine-Chondr Tablet (Glucosamine Hcl/Chondr [place] A Na) 1 Each Tablet 2 Each PO DAILY Gabapentin (Gabapentin) 300 Mg Capsule 300 Mg PO HS Gabapentin (Gabapentin) 100 Mg Capsule 200 Mg PO BIDWBKFT/AVE Flonase Allergy Relief (Fluticasone Propionate) 9.9 Ml Cocoa.susp 2 Sprays NS DAILY Elta Seal Moisture Barrier (Zinc Oxide) 114 Gm Cream..g. 114 Gm TP BID Diphenhydramine Hcl 50 Mg Capsule 25 Mg PO Q6HRS PRN Vitamin D3 (Cholecalciferol (Vitamin D3)) 1,000 Unit Tablet 2,000 Unit PO DAILY Atorvastatin Calcium 20 Mg Tablet DAILY Venlafaxine Hcl Er (Venlafaxine Hcl) 150 Mg Cap.er.24h DAILY Furosemide 20 Mg Tablet 40 Mg BID Lisinopril 40 Mg Tablet 40 DAILY Carvedilol 25 Mg Tablet 25 BID Pantoprazole Sodium 40 Mg Tablet.dr DAILY Bupropion Hcl Sr (Bupropion Hcl) 150 Mg Tablet.er 150 BID Vitals/I & O Vital Sign - Last 24 Hours 05/17/18 05/17/18 05/17/18 05/17/18 15:00 15:22 17:47 19:00 Temp 97.4 98.0 97.4 98.0 Pulse 81 81 99 Resp 20 18 B/P (MAP) 130/55 (80) 130/55 135/90 (105) Pulse Ox 94 94 O2 Delivery Room Air Room Air Room Air 05/17/18 05/17/18 05/17/18 05/17/18 19:49 20:00 22:03 22:08 Pulse 99 B/P (MAP) 135/90 Pulse Ox 94 94 O2 Delivery Room Air Room Air Room Air 05/17/18 05/17/18 05/18/18 05/18/18 23:00 23:15 03:32 03:36 Temp 98.3 97.5 98.3 97.5 Pulse 78 96 Resp 18 20 B/P (MAP) 130/63 (85) 142/67 (92) Pulse Ox 96 95 O2 Delivery Room Air Room Air Room Air Room Air 05/18/18 05/18/18 05/18/18 05/18/18 06:22 07:00 07:33 07:42 Temp 98.7 98.7 Pulse 94 Resp 18 B/P (MAP) 140/69 (92) Pulse Ox 95 94 95 95 O2 Delivery Room Air Room Air Room Air Room Air 05/18/18 05/18/18 08:06 08:07 Pulse 94 94 B/P (MAP) 140/69 140/69 Intake and Output 05/17/18 05/17/18 05/18/18 14:59 22:59 06:59 Intake Total 900 ml 2050 ml Output Total 600 ml 1000 ml Balance 300 ml 1050 ml VENTURA JULES MD May 18, 2018 11:29
[2018-05-18] MEDS ORDERED: BISACODYL 10 MG SUPP.RECT. PR PRN (11:30)
[2018-05-18] MEDS ORDERED: MAGNESIUM HYDROXIDE 2,400 MG/30 ML ORAL.SUSP. PO PRN (11:30)
[2018-05-18] MEDS ORDERED: MAGNESIUM HYDROXIDE 2,400 MG/30 ML ORAL.SUSP. PO ONE (12:00)
[2018-05-18] MEDS ORDERED: POLYETHYLENE GLYCOL 3350 17 GM PACKET. PO ONE (12:00)
[2018-05-18] MEDS: GABAPENTIN 100 MG CAPSULE. PO SCH (12:44)
--- NOTE | 2018-05-18 13:20 | NUR ---
SW following. Discussed with RN, pt is from home with . OT recommending SNU, SW awaiting PT recommendation. SW will continue to follow.
[2018-05-18 15:00] VITALS: BP 143/68
--- NOTE | 2018-05-18 15:05 | NUR ---
Wound Care Wound care consult for wound to R great toe s/p debridement by Dr Bourne on 05/17. All other wounds are resolved at this time. Cleansed wounds, applied hydrogel, xeroform and telfa pad, recommend to change every other day. WC will continue to follow for possible changes.
--- NOTE | 2018-05-18 16:05 | NUR ---
SW following. Discussed with RN, PT/OT recommending SNU for pt. SW met with pt to discuss, pt was very sleepy and could not converse with SW. Pt gave permission for JOSE to contact his , Luna ([phone]). Luna would like pt's referral to be sent to [facility]. SW faxed referral. RN notified.
[2018-05-18] MEDS: MULTIVITAMIN with MINERAL TABLET. PO SCH (16:07)
[2018-05-18] MEDS: MINERAL OIL/PETROLATUM TOPICAL CREAM 113GM JAR. TP SCH ×3 (16:08→21:00)
[2018-05-18] MEDS ORDERED: BUPIVACAINE MPF 0.25% 10 ML VIAL. IJ ONE (16:15)
[2018-05-18] MEDS ORDERED: methylPREDNISolone ACETATE 40 MG/ML VIAL. IM ONE (16:15)
[2018-05-18 16:36] LABS: FIO2 ABG 21; HCO3 ABG 25 mmol/L (21-28); PCO2 ABG 42 mmHg (35-46); PO2 ABG 74 mmHg (65-108); SAT O2 ABG 94 % (92-99)
--- NOTE | 2018-05-18 17:41 | NUR ---
RT did not document on this patient's duoneb for 1200 and 1600, although I saw RT in the room during these times.
[2018-05-18 19:00] VITALS: BP 177/56
--- NOTE | 2018-05-18 19:43 | NUR ---
Pt is presenting with some lethargic behavior this afternoon. Medications have been looked over by and changed to prevent drowsiness, Bipap added to assist with sleep apnea, and breathing. Lactic acid ordered per protocol, which was <2. Dr. Sampson aware of these changes. Pt receiving antibiotics and fluids. Will continue to monitor closely.
[2018-05-18] MEDS: DICLOFENAC SODIUM 1% TOPICAL GEL 100GM TUBE. TP SCH (21:00)
[2018-05-18] MEDS: GABAPENTIN 300 MG CAPSULE. PO SCH (21:00)
[2018-05-18] MEDS: VANCOMYCIN 2 GM in IV NORMAL SALINE 500ML BAG 500 ML IV SCH (21:15)
[2018-05-18] MEDS: ATORVASTATIN CALCIUM 20 MG TABLET PO SCH (21:17)
[2018-05-18] MEDS: IRON POLYSACCHARIDE COMPLEX 150 MG CAPSULE PO SCH (21:17)
[2018-05-18] MEDS: INSULIN GLARGINE 300 UNITS/3 ML INSULN.PEN. SQ SCH (21:31)
[2018-05-18 22:37] VITALS: BP 170/72
[2018-05-19 02:34] VITALS: BP 190/74
[2018-05-19] MEDS: IPRATRPIUM/ALBUTEROL 0.5/2.5MG 3 ML NEBU. NEB SCH ×6 (03:00→23:34)
[2018-05-19 04:48] LABS: CREATININE 1.7 mg/dL (0.7-1.3)
[2018-05-19] MEDS: HEPARIN for SUB-Q USE 5,000 UNIT/ML VIAL. SQ SCH ×3 (06:13→22:13)
[2018-05-19 07:00] VITALS: BP 145/61
[2018-05-19] MEDS: BUDESONIDE 0.5 MG/2 ML NEBU. NEB SCH ×2 (07:02→20:12)
[2018-05-19] MEDS: IV NORMAL SALINE 1000ML BAG 1,000 ML IV SCH (07:36)
[2018-05-19] MEDS: DICLOFENAC SODIUM 1% TOPICAL GEL 100GM TUBE. TP SCH ×2 (08:56→22:19)
[2018-05-19] MEDS: MINERAL OIL/PETROLATUM TOPICAL CREAM 113GM JAR. TP SCH ×4 (08:56→21:00)
[2018-05-19] MEDS: PANTOPRAZOLE 40 MG TABLET.DR. PO SCH (08:57)
[2018-05-19] MEDS: CHOLECALCIFEROL (VITAMIN D3) 1,000 UNIT TABLET PO SCH (08:57)
[2018-05-19] MEDS: FLUTICASONE 50MCG/NASAL SPRAY 16GM BOTTLE. NS SCH (08:57)
[2018-05-19] MEDS: ASPIRIN 325 MG TABLET PO SCH (08:57)
[2018-05-19] MEDS: SENNOSIDES/DOCUSATE 8.6/50MG TABLET. PO SCH ×2 (08:59→22:16)
[2018-05-19] MEDS: CARVEDILOL 12.5 MG TABLET. PO SCH ×2 (08:59→16:49)
[2018-05-19] MEDS: MULTIVITAMIN with MINERAL TABLET. PO SCH (08:59)
[2018-05-19] MEDS: LACTOBACILLUS RHAMNOSUS GG 1 CAPSULE. PO SCH ×2 (08:59→22:14)
[2018-05-19] MEDS: IRON POLYSACCHARIDE COMPLEX 150 MG CAPSULE PO SCH ×2 (08:59→22:16)
[2018-05-19] MEDS: POLYETHYLENE GLYCOL 3350 17 GM PACKET. PO SCH (09:00)
[2018-05-19] MEDS: INSULIN LISPRO 300 UNITS/3 ML INSULN.PEN. SQ SCH ×6 (09:14→16:53)
[2018-05-19] MEDS: ZINC OXIDE 20% TOPICAL OINTMENT 28GM TUBE. TP SCH ×2 (09:20→21:00)
[2018-05-19] MEDS: NYSTATIN TOPICAL POWDER 15GM BOTTLE. TP SCH (09:20)
--- NOTE | 2018-05-19 09:32 | CONS ---
DATE OF CONSULTATION: 05/18/2018 ATTENDING PHYSICIAN: Dr. Alvarez. REASON FOR CONSULTATION: The patient was seen at the request of Dr. Park for rehab evaluation. He is in room 406. HISTORY OF PRESENT ILLNESS: This is a 72-year-old male, known to me. The patient with known hypertension, diabetes mellitus, dyslipidemia with severe osteoarthritis of his knees, also peripheral vascular disease, status post transmetatarsal amputation of left foot and some amputation of right foot toes. The patient was admitted on 05/15/2018 with painful knees and difficulty walking, and he admits he does not have any balance. He started having increasing weakness about 2 days prior to the hospitalization. The patient was recommended bilateral total knee arthroplasty in the past. The patient also had dry necrotic ulcer, right big toe, which was drained and debrided by Dr. Donovan who injected his right knee too. He had venous insufficiency, discoloration of his both feet and legs, and he had multiple skin lesions over both legs. The patient also with known coronary artery disease, congestive heart failure, hypertension, chronic renal insufficiency, diabetes mellitus, family history of hypertension. He lives with his , had no stairs for him to manage. The patient had a built-up shoe to his left foot. The patient admits some lower back pain. PHYSICAL EXAMINATION: Today revealed an elderly male. He is alert, oriented to time, place, person and circumstance and follows commands appropriately, moves all 4 extremities voluntarily where he had 4+/5 grade muscle strength. He had painful limited movements of his cervical spine and tenderness to palpation over left cervical paraspinal and upper trapezius muscle area. The patient had crepitus on range of motion of both knee joints with mild knee joint effusion. He had decreased deep tendon reflexes overall with absent ankle jerks. He had dressing to his right foot. The patient requires some help with bed mobility. He can transfer with supervision. No significant drop with his blood pressure with change of posture noted. He made a couple of steps using a roller walker. He gets tired easily. He is obese. ASSESSMENT: Mobility and self-care limitation in a patient with diabetes mellitus with peripheral neuropathy, painful degenerative joint disease of his knees, chronic venous insufficiency, skin lesions of both feet and legs, peripheral vascular disease, status post left foot transmetatarsal amputation, degenerative disk disease of lumbar vertebrae, cervical sprain. History of coronary artery disease, congestive heart failure, hypertension, chronic renal insufficiency. RECOMMENDATIONS: Agree with the plan for physical therapy and occupational therapy to get him up as tolerated, to consider injecting his left knee if the pain is limiting his activity participation. Agree with the plans for transfer to senior care care unit for continued care when medically stable. Dr. Park, I appreciate asking me to participate in the care of this interesting patient. I will be glad to follow him with you as needed for his rehabilitation. FASUTO METCALF MD DR: AMBER/domitila JOB#: [id number] / [id number]
--- NOTE | 2018-05-19 10:00 | PDOC ---
PROGRESS NOTES Subjective Subjective No new complaints. Objective Objective Vital Signs Date Time Temp Pulse Resp B/P (MAP) Pulse Ox O2 Delivery O2 Flow Rate FiO2 05/19/18 08:59 70 145/61 05/19/18 07:03 96 Room Air 05/19/18 07:00 97.5 18 97.5 Intake and Output 05/19/18 06:59 Output Total 651 ml Balance -651 ml Output Urine Total 650 ml Stool Total 1 ml # Voids 2 # Bowel Movements 1 Physical Exam Physical Exam He is alert,sitting in bedside chair and does not seem to be in any significant distress, He continues with skin lesions on his feet and legs and tenderness to palpation over left levator scapulae and upper trapezius and cervical paraspinal muscles with painfully limited cervical spine ROM. He did walk for 75' with roller walker with physical therapy yesterday. He is not having that much pain in his left knee to consider injection at this time. He is still sleepy sometimes during day and to consider decreasing evening dose of gabapentin if his lethargy persists. Assessment Assessment Problems Medical Problems: (1) Chronic knee pain Status: Acute Plan Plan of Care To SNF when medically stable. Comment Review of Relevant I have reviewed the following items minnie (where applicable) has been applied. Labs Laboratory Tests Test 05/17/18 11:30 05/17/18 16:55 05/17/18 20:47 05/18/18 04:40 Glucose (Fingerstick) 214 mg/dL (70-99) 198 mg/dL (70-99) 263 mg/dL (70-99) White Blood Count 15.6 x10^3/uL (4.0-11.0) Red Blood Count 3.07 x10^6/uL (4.30-5.70) Hemoglobin 8.8 g/dL (13.0-17.5) Hematocrit 26.9 % (39.0-53.0) Mean Corpuscular Volume 87 fL (79-100) Mean Corpuscular Hemoglobin 29 pg (25-35) Mean Corpuscular Hemoglobin Concent 33 g/dL (31-37) Red Cell Distribution Width 13.4 % (11.5-14.5) Platelet Count 258 x10^3/uL (140-400) Neutrophils (%) (Auto) 95 % (31-73) Lymphocytes (%) (Auto) 2 % (24-48) Monocytes (%) (Auto) 3 % (0-9) Eosinophils (%) (Auto) 0 % (0-3) Basophils (%) (Auto) 0 % (0-3) Neutrophils # (Auto) 14.7 x10^3uL (1.8-7.7) Lymphocytes # (Auto) 0.4 x10^3/uL (1.0-4.8) Monocytes # (Auto) 0.4 x10^3/uL (0.0-1.1) Eosinophils # (Auto) 0.0 x10^3/uL (0.0-0.7) Basophils # (Auto) 0.0 x10^3/uL (0.0-0.2) Segmented Neutrophils % 97 % (35-66) Lymphocytes % 2 % (24-48) Monocytes % 1 % (0-10) Platelet Estimate Adequate (ADEQUATE) Sodium Level 138 mmol/L (136-145) Potassium Level 4.5 mmol/L (3.5-5.1) Chloride Level 102 mmol/L (98-107) Carbon Dioxide Level 23 mmol/L (21-32) Anion Gap 13 (6-14) Blood Urea Nitrogen 52 mg/dL (8-26) Creatinine 1.7 mg/dL (0.7-1.3) Estimated GFR (Cockcroft-Gault) 40.0 Glucose Level 310 mg/dL (70-99) Calcium Level 9.1 mg/dL (8.5-10.1) Phosphorus Level 2.4 mg/dL (2.6-4.7) Albumin 2.3 g/dL (3.4-5.0) Procalcitonin 0.14 ng/mL (0.00-0.10) Test 05/18/18 07:13 05/18/18 07:25 05/18/18 11:03 05/18/18 16:05 Glucose (Fingerstick) 295 mg/dL (70-99) 226 mg/dL (70-99) Influenza Type A Antigen Negative (NEGATIVE) Influenza Type B Antigen Negative (NEGATIVE) O2 Saturation 94 % (92-99) Arterial Blood pH 7.39 (7.35-7.45) Arterial Blood pCO2 at Patient Temp 42 mmHg (35-46) Arterial Blood pO2 at Patient Temp 74 mmHg (65-108) Arterial Blood HCO3 25 mmol/L (21-28) Arterial Blood Base Excess -0 mmol/L (-3-3) FiO2 21 Test 05/18/18 16:20 05/18/18 17:55 05/18/18 20:13 05/19/18 03:00 Glucose (Fingerstick) 192 mg/dL (70-99) 186 mg/dL (70-99) Lactic Acid Level 1.6 mmol/L (0.4-2.0) Erythrocyte Sedimentation Rate > 130 (0-15) Creatinine 1.7 mg/dL (0.7-1.3) Estimated GFR (Cockcroft-Gault) 40.0 Test 05/19/18 09:07 Glucose (Fingerstick) 216 mg/dL (70-99) Laboratory Tests Test 05/18/18 11:03 05/18/18 16:05 05/18/18 16:20 05/18/18 17:55 Glucose (Fingerstick) 226 mg/dL (70-99) 192 mg/dL (70-99) O2 Saturation 94 % (92-99) Arterial Blood pH 7.39 (7.35-7.45) Arterial Blood pCO2 at Patient Temp 42 mmHg (35-46) Arterial Blood pO2 at Patient Temp 74 mmHg (65-108) Arterial Blood HCO3 25 mmol/L (21-28) Arterial Blood Base Excess -0 mmol/L (-3-3) FiO2 21 Lactic Acid Level 1.6 mmol/L (0.4-2.0) Test 05/18/18 20:13 05/19/18 03:00 05/19/18 09:07 Glucose (Fingerstick) 186 mg/dL (70-99) 216 mg/dL (70-99) Erythrocyte Sedimentation Rate > 130 (0-15) Creatinine 1.7 mg/dL (0.7-1.3) Estimated GFR (Cockcroft-Gault) 40.0 Medications Current Medications Ibuprofen (Motrin) 400 mg 1X ONCE PO Last administered on 05/15/18at 10:58; Start 05/15/18 at 10:30; Stop 05/15/18 at 10:31; Status DC Ondansetron HCl (Zofran) 4 mg PRN Q4HRS PRN IV NAUSEA/VOMITING; Start 05/15/18 at 14:15 Zolpidem Tartrate (Ambien) 5 mg PRN QHS PRN PO INSOMNIA Last administered on 23:29; Start 05/15/18 at 14:15; Stop 05/17/18 at 23:35; Status DC Acetaminophen (Tylenol) 650 mg PRN Q4HRS PRN PO TEMP OVER 100.4F OR MILD PAIN Last administered on 05/16/18 23:29; Start 05/15/18 at 14:15 Clonidine HCl (Catapres) 0.1 mg PRN Q6HRS PRN PO SBP>160 OR DBP>90; Start at 14:15 Albuterol/ Ipratropium (Duoneb) 3 ml Q4HRS NEB Last administered on 05/19/18 07:01; Start 05/15/18 at 16:00 Guaifenesin (Robitussin) 200 mg PRN Q4HRS PRN PO COUGH, 2nd CHOICE Last administered on 05/15/18 20:15; Start 05/15/18 at 14:15 Lorazepam (Ativan) 0.5 mg PRN Q4HRS PRN PO ANXIETY / AGITATION Last administered on 05/16/18 23:29; Start 05/15/18 at 14:15 Enoxaparin Sodium (Lovenox 60mg Syringe) 60 mg Q12HR SQ ; Start 05/15/18 at 21:00 ; Status Cancel Aspirin (Jacquelin Aspirin) 162.5 mg DAILY PO Last administered on 05/19/18 08:57 ; Start 05/15/18 at 15:30 Atorvastatin Calcium (Lipitor) 20 mg QHS PO Last administered on 05/18/18 21: 17; Start 05/15/18 at 21:00 Bupropion HCl (Wellbutrin Sr) 150 mg BID PO Last administered on 05/18/18 08: 07; Start 05/15/18 at 21:00; Stop 05/18/18 at 18:14; Status DC Vitamin D (Vitamin D3) 2,000 unit DAILY PO Last administered on 05/19/18 08:57 ; Start 05/15/18 at 15:30 Furosemide (Lasix) 40 mg BID94 PO Last administered on 05/15/18 17:33; Start at 16:00; Stop 05/16/18 at 10:55; Status DC Gabapentin (Neurontin) 200 mg BIDWBKFT/AVE PO Last administered on 05/18/18 12 :44; Start 05/16/18 at 08:00; Stop 05/18/18 at 16:18; Status DC Gabapentin (Neurontin) 300 mg HS PO Last administered on 05/17/18 22:07; Start 05/15/18 at 21:00 Insulin Glargine (Lantus) 45 units QHS SQ Last administered on 05/18/18 21:31 ; Start 05/15/18 at 21:00 Lisinopril (Prinivil) 40 mg DAILY PO Last administered on 05/15/18 17:37; Start 05/15/18 at 15:30; Stop 05/16/18 at 10:55; Status DC Nystatin (Nystop) 15 ritu DAILY TP Last administered on 05/19/18 09:20; Start 05/16/18 at 09:00 Oxycodone HCl (Roxicodone) 10 mg PRN Q4HRS PRN PO MODERATE TO SEVERE PAIN Last administered on 05/18/18 06:22; Start 05/15/18 at 14:15 Pantoprazole Sodium (Protonix) 40 mg DAILYAC PO Last administered on 05/19/18 08:57; Start 05/15/18 at 15:30 Senna/Docusate Sodium (Senna Plus) 1 tab BID PO Last administered on 05/19/18 08:59; Start 05/15/18 at 21:00 Carvedilol (Coreg) 25 mg BIDWMEALS PO Last administered on 05/19/18 08:59; Start 05/15/18 at 17:00 Diphenhydramine HCl (Benadryl) 25 mg PRN Q6HRS PRN PO ALLERGIES; Start 05/15/18 at 14:30; Stop 05/18/18 at 18:14; Status DC Fluticasone Propionate (Flonase) 2 spray DAILY NS Last administered on 08:57; Start 05/16/18 at 09:00 Non-Formulary Medication (Glucosamine Hcl/ Chondr [place] A Na ([facility] Glucosamine- Chondr Tablet)) 2 each DAILY PO ; Start 05/16/18 at 09:00; Status UNV Hydralazine HCl (Apresoline) 50 mg TID PO Last administered on 05/19/18 08:58 ; Start 05/15/18 at 15:30 Insulin Human Lispro (HumaLOG) 30 units TIDWMEALS SQ Last administered on 09:14; Start 05/15/18 at 17:00 Lactobacillus Rhamnosus (Culturelle) 1 cap BID PO Last administered on 08:59; Start 05/15/18 at 21:00 Meloxicam (Mobic) 7.5 mg DAILY PO Last administered on 05/18/18 08:05; Start 05/15/18 at 15:30; Stop 05/18/18 at 16:18; Status DC Zinc Oxide (Zinc Oxide 20% Topical) 1 ritu BID TP Last administered on 09:20; Start 05/15/18 at 21:00 Ondansetron HCl (Zofran) 4 mg PRN Q8HRS PRN IV NAUSEA/VOMITING; Start 05/15/18 at 14:30; Stop 05/16/18 at 14:29; Status DC Acetaminophen (Tylenol) 650 mg PRN Q4HRS PRN PO FEVER; Start 05/15/18 at 14:30; Stop 05/16/18 at 14:29; Status DC Morphine Sulfate (Morphine Sulfate) 2 mg PRN Q2HR PRN IV PAIN Last administered on 05/16/18 08:48; Start 05/15/18 at 15:45 Heparin Sodium (Porcine) (Heparin Sodium) 5,000 unit Q8HRS SQ Last administered on 05/19/18 06:13; Start 05/15/18 at 22:00 Methylprednisolone Acetate (DEPO-Medrol 80MG VIAL) 80 mg 1X ONCE INJ Last administered on 05/17/18 08:49; Start 05/17/18 at 08:15; Stop 05/17/18 at 08:16 ; Status DC Lidocaine HCl (Xylocaine-Mpf 1% 2ml Vial) 2 ml 1X ONCE INJ Last administered on 05/17/18 08:50; Start 05/17/18 at 08:00; Stop 05/17/18 at 08:01; Status DC Budesonide (Pulmicort) 0.5 mg RTBID NEB Last administered on 05/19/18at 07:02; Start 05/17/18 at 20:00 Albuterol Sulfate (Ventolin Neb Soln) 2.5 mg PRN Q4HRS PRN NEB SHORTNESS OF BREATH; Start 05/17/18 at 08:30 Guaifenesin (Robitussin Dm) 10 ml PRN Q6HRS PRN PO COUGH, 1st CHOICE Last administered on 05/18/18at 21:24; Start 05/17/18 at 08:30 Sodium Chloride 1,000 ml @ 75 mls/hr [id number] IV Last administered on at 16:08; Start 05/18/18 at 00:30 Levofloxacin/ Dextrose 50 ml @ 50 mls/hr Q24H IV Last administered on at 00:45; Start 05/18/18 at 00:30; Stop 05/18/18 at 02:00; Status DC Vancomycin HCl (Vanco Per Pharmacy) 1 each PRN DAILY PRN MC SEE COMMENTS Last administered on 05/18/18at 10:49; Start 05/18/18 at 00:30 Vancomycin HCl 2 gm/Sodium Chloride 500 ml @ 250 mls/hr 1X ONCE IV Last administered on 05/18/18 02:15; Start 05/18/18 at 01:00; Stop 05/18/18 at 02:59 ; Status DC Levofloxacin/ Dextrose 50 ml @ 50 mls/hr Q24H IV ; Start 05/18/18 at 22:00; Stop 05/18/18 at 22:00; Status DC Insulin Human Lispro (HumaLOG) 0-7 UNITS TIDWMEALS SQ Last administered on 05/19at 09:16; Start 05/18/18 at 09:30 Dextrose (Dextrose 50%-Water Syringe) 12.5 gm PRN Q15MIN PRN IV SEE COMMENTS; Start 05/18/18 at 09:30 Levofloxacin/ Dextrose 100 ml @ 100 mls/hr Q24H IV Last administered on at 21:00; Start 05/18/18 at 21:00 Vancomycin HCl 2 gm/Sodium Chloride 500 ml @ 250 mls/hr Q18H IV Last administered on 05/18/18at 21:15; Start 05/18/18 at 20:00 Vancomycin HCl (Vancomycin Trough Level) 1 each 1X ONCE MC ; Start 05/19/18 at 13:30; Stop 05/19/18 at 13:31 Multi-Ingred Cream/Lotion/Oil/ Oint (Hydrocerin Cream) 1 ritu QID TP Last administered on 05/19/18at 08:56; Start 05/18/18 at 12:00 Polyethylene Glycol (miraLAX PACKET) 17 gm 1X ONCE PO Last administered on 01/26at 12:00; Start 05/18/18 at 12:00; Stop 05/18/18 at 12:01; Status DC Polyethylene Glycol (miraLAX PACKET) 17 gm DAILY PO ; Start 05/19/18 at 09:00 Magnesium Hydroxide (Milk Of Magnesia) 2,400 mg 1X ONCE PO Last administered on 05/18/18at 12:44; Start 05/18/18 at 12:00; Stop 05/18/18 at 12:01; Status DC Magnesium Hydroxide (Milk Of Magnesia) 2,400 mg PRN DAILY PRN PO CONSTIPATION; Start 05/18/18 at 11:30 Bisacodyl (Dulcolax Supp) 10 mg PRN DAILY PRN [place] CONSTIPATION; Start 05/18/18 at 11:30 Multivitamins (Thera M Plus) 1 tab DAILY PO Last administered on 05/19/18at 08: 59; Start 05/18/18 at 14:00 Diclofenac Sodium (Voltaren) 1 ritu BID TP Last administered on 05/19/18at 08:56 ; Start 05/18/18 at 21:00 Methylprednisolone Acetate (DEPO-Medrol 40MG VIAL) 40 mg 1X ONCE IM ; Start 01/26 at 16:15; Stop 05/18/18 at 16:20; Status DC Bupivacaine HCl (Sensorcaine-Mpf 0.25%) 10 ml 1X ONCE IJ ; Start 05/18/18 at 16 :15; Stop 05/18/18 at 16:20; Status DC Polysaccharide Iron Complex (Niferex 150) 150 mg BID PO Last administered on 02/25at 08:59; Start 05/18/18 at 21:00 Active Scripts Active Meloxicam 7.5 Mg Tablet 7.5 Mg PO DAILY Oxycodone Hcl Immed.release (Oxycodone Hcl) 5 Mg Tablet 10 Mg PO PRN Q4HRS PRN Reported Novolog Flexpen (Insulin Aspart) 100 Unit/1 Ml Insuln.pen 30 SQ TIDWMEALS Aspirin 325 Mg Tablet 0.5 Tab PO DAILY Senna-S Tablet (Sennosides/Docusate Sodium) 1 Each Tablet 1 Each PO BID Nyamyc (Nystatin) 15 Gm Powder 15 Gm TP DAILY Culturelle (Lactobacillus Rhamnosus Gg) 1 Each Capsule 1 Each PO BIDWMEALS Lantus Solostar (Insulin Glargine,Hum.rec.anlog) 100 Unit/1 Ml Insuln.pen 45 Unit SQ QHS Hydralazine Hcl 25 Mg Tablet 2 Tab PO TID [facility] Glucosamine-Chondr Tablet (Glucosamine Hcl/Chondr [place] A Na) 1 Each Tablet 2 Each PO DAILY Gabapentin (Gabapentin) 300 Mg Capsule 300 Mg PO HS Gabapentin (Gabapentin) 100 Mg Capsule 200 Mg PO BIDWBKFT/AVE Flonase Allergy Relief (Fluticasone Propionate) 9.9 Ml [place].susp 2 Sprays NS DAILY Elta Seal Moisture Barrier (Zinc Oxide) 114 Gm Cream..g. 114 Gm TP BID Diphenhydramine Hcl 50 Mg Capsule 25 Mg PO Q6HRS PRN Vitamin D3 (Cholecalciferol (Vitamin D3)) 1,000 Unit Tablet 2,000 Unit PO DAILY Atorvastatin Calcium 20 Mg Tablet DAILY Venlafaxine Hcl Er (Venlafaxine Hcl) 150 Mg Cap.er.24h DAILY Furosemide 20 Mg Tablet 40 Mg BID Lisinopril 40 Mg Tablet 40 DAILY Carvedilol 25 Mg Tablet 25 BID Pantoprazole Sodium 40 Mg Tablet.dr DAILY Bupropion Hcl Sr (Bupropion Hcl) 150 Mg Tablet.er 150 BID Vitals/I & O Vital Sign - Last 24 Hours 05/18/18 05/18/18 05/18/18 05/18/18 11:00 15:00 16:07 17:20 Temp 98.3 98.1 98.3 98.1 Pulse 96 66 66 66 Resp 18 16 B/P (MAP) 131/62 (85) 143/68 (93) 143/68 143/68 Pulse Ox 96 100 O2 Delivery Room Air Room Air 05/18/18 05/18/18 05/18/18 05/18/18 19:00 19:47 20:00 21:16 Temp 98.9 98.9 Pulse 69 69 Resp 12 B/P (MAP) 177/56 (96) 177/69 Pulse Ox 96 91 O2 Delivery Room Air Room Air Room Air 05/18/18 05/18/18 05/19/18 05/19/18 22:37 23:50 01:00 02:34 Temp 98.7 98.9 98.7 98.9 Pulse 71 68 Resp 12 16 B/P (MAP) 170/72 (104) 190/74 (112) Pulse Ox 97 96 O2 Delivery Room Air Room Air BiPAP/CPAP Room Air 05/19/18 05/19/18 05/19/18 05/19/18 03:00 07:00 07:03 08:58 Temp 97.5 97.5 Pulse 70 70 Resp 18 B/P (MAP) 145/61 (89) 145/61 Pulse Ox 100 96 O2 Delivery Room Air Room Air Room Air 05/19/18 08:59 Pulse 70 B/P (MAP) 145/61 Intake and Output 05/18/18 05/18/18 05/19/18 14:59 22:59 06:59 Output Total 650 ml 1 ml Balance -650 ml -1 ml FAUSTO METCALF MD May 19, 2018 10:00
[2018-05-19 11:00] VITALS: BP 150/58
--- NOTE | 2018-05-19 11:06 | PDOC2 ---
CONSULT Date of Consult Date of Consult DATE: 05/19/18 TIME: 11:00 Reason for Consult Reason for Consult: RENAL FAILURE Referring Physician Referring Physician: GUILHERME Identification/Chief Complaint Chief Complaint CANT GET UP Source Source: Chart review, Patient History of Present Illness Reason for Visit: THIS IS A 72 YR OLD WITH CR OF ABOUT 1.7. HAS HX OF DM II AND HTN. OLD RECORDS INDICATE THAT HIS CR HAS BEEN IN THIS RANGE FOR SOME TIME. 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 MORBID OBESITY HAS CONTRIBUTED TO THIS. HE IS BEING EVALUATED BY ORTHOPEDICS FOR THIS. NO OTHER HX. NO NEPHROTOXINS NOTED Past Medical History Cardiovascular: CAD, CHF, HTN Pulmonary: No pertinent hx Renal/: Chronic renal insuff Endocrine: Diabetes Family History Family History: No Significant, Hypertension Social History ALCOHOL: none Drugs: None Current Problem List Problem List Problems Medical Problems: (1) Chronic knee pain Status: Acute Current Medications Current Medications Current Medications Ibuprofen (Motrin) 400 mg 1X ONCE PO Last administered on 05/15/18at 10:58; Start 05/15/18 at 10:30; Stop 05/15/18 at 10:31; Status DC Ondansetron HCl (Zofran) 4 mg PRN Q4HRS PRN IV NAUSEA/VOMITING; Start 05/15/18 at 14:15 Zolpidem Tartrate (Ambien) 5 mg PRN QHS PRN PO INSOMNIA Last administered on 05/16/18at 23:29; Start 05/15/18 at 14:15; Stop 05/17/18 at 23:35; Status DC Acetaminophen (Tylenol) 650 mg PRN Q4HRS PRN PO TEMP OVER 100.4F OR MILD PAIN Last administered on 05/16/18at 23:29; Start 05/15/18 at 14:15 Clonidine HCl (Catapres) 0.1 mg PRN Q6HRS PRN PO SBP>160 OR DBP>90; Start at 14:15 Albuterol/ Ipratropium (Duoneb) 3 ml Q4HRS NEB Last administered on 05/19/18at 07:01; Start 05/15/18 at 16:00 Guaifenesin (Robitussin) 200 mg PRN Q4HRS PRN PO COUGH, 2nd CHOICE Last administered on 05/15/18 20:15; Start 05/15/18 at 14:15 Lorazepam (Ativan) 0.5 mg PRN Q4HRS PRN PO ANXIETY / AGITATION Last administered on 05/16/18 23:29; Start 05/15/18 at 14:15 Enoxaparin Sodium (Lovenox 60mg Syringe) 60 mg Q12HR SQ ; Start 05/15/18 at 21:00 ; Status Cancel Aspirin (Jacquelin Aspirin) 162.5 mg DAILY PO Last administered on 05/19/18 08:57 ; Start 05/15/18 at 15:30 Atorvastatin Calcium (Lipitor) 20 mg QHS PO Last administered on 05/18/18 21: 17; Start 05/15/18 at 21:00 Bupropion HCl (Wellbutrin Sr) 150 mg BID PO Last administered on 05/18/18 08: 07; Start 05/15/18 at 21:00; Stop 05/18/18 at 18:14; Status DC Vitamin D (Vitamin D3) 2,000 unit DAILY PO Last administered on 05/19/18 08:57 ; Start 05/15/18 at 15:30 Furosemide (Lasix) 40 mg BID94 PO Last administered on 05/15/18 17:33; Start at 16:00; Stop 05/16/18 at 10:55; Status DC Gabapentin (Neurontin) 200 mg BIDWBKFT/AVE PO Last administered on 05/18/18 12 :44; Start 05/16/18 at 08:00; Stop 05/18/18 at 16:18; Status DC Gabapentin (Neurontin) 300 mg HS PO Last administered on 05/17/18 22:07; Start 05/15/18 at 21:00 Insulin Glargine (Lantus) 45 units QHS SQ Last administered on 05/18/18 21:31 ; Start 05/15/18 at 21:00 Lisinopril (Prinivil) 40 mg DAILY PO Last administered on 05/15/18 17:37; Start 05/15/18 at 15:30; Stop 05/16/18 at 10:55; Status DC Nystatin (Nystop) 15 ritu DAILY TP Last administered on 05/19/18 09:20; Start 05/16/18 at 09:00 Oxycodone HCl (Roxicodone) 10 mg PRN Q4HRS PRN PO MODERATE TO SEVERE PAIN Last administered on 05/18/18 06:22; Start 05/15/18 at 14:15 Pantoprazole Sodium (Protonix) 40 mg DAILYAC PO Last administered on 05/19/18 08:57; Start 05/15/18 at 15:30 Senna/Docusate Sodium (Senna Plus) 1 tab BID PO Last administered on 05/19/18 08:59; Start 05/15/18 at 21:00 Carvedilol (Coreg) 25 mg BIDWMEALS PO Last administered on 05/19/18 08:59; Start 05/15/18 at 17:00 Diphenhydramine HCl (Benadryl) 25 mg PRN Q6HRS PRN PO ALLERGIES; Start 05/15/18 at 14:30; Stop 05/18/18 at 18:14; Status DC Fluticasone Propionate (Flonase) 2 spray DAILY NS Last administered on 08:57; Start 05/16/18 at 09:00 Non-Formulary Medication (Glucosamine Hcl/ Chondr [place] A Na ([facility] Glucosamine- Chondr Tablet)) 2 each DAILY PO ; Start 05/16/18 at 09:00; Status UNV Hydralazine HCl (Apresoline) 50 mg TID PO Last administered on 05/19/18 08:58 ; Start 05/15/18 at 15:30 Insulin Human Lispro (HumaLOG) 30 units TIDWMEALS SQ Last administered on 09:14; Start 05/15/18 at 17:00 Lactobacillus Rhamnosus (Culturelle) 1 cap BID PO Last administered on 08:59; Start 05/15/18 at 21:00 Meloxicam (Mobic) 7.5 mg DAILY PO Last administered on 05/18/18 08:05; Start 05/15/18 at 15:30; Stop 05/18/18 at 16:18; Status DC Zinc Oxide (Zinc Oxide 20% Topical) 1 ritu BID TP Last administered on 09:20; Start 05/15/18 at 21:00 Ondansetron HCl (Zofran) 4 mg PRN Q8HRS PRN IV NAUSEA/VOMITING; Start 05/15/18 at 14:30; Stop 05/16/18 at 14:29; Status DC Acetaminophen (Tylenol) 650 mg PRN Q4HRS PRN PO FEVER; Start 05/15/18 at 14:30; Stop 05/16/18 at 14:29; Status DC Morphine Sulfate (Morphine Sulfate) 2 mg PRN Q2HR PRN IV PAIN Last administered on 05/16/18at 08:48; Start 05/15/18 at 15:45 Heparin Sodium (Porcine) (Heparin Sodium) 5,000 unit Q8HRS SQ Last administered on 05/19/18 06:13; Start 05/15/18 at 22:00 Methylprednisolone Acetate (DEPO-Medrol 80MG VIAL) 80 mg 1X ONCE INJ Last administered on 05/17/18 08:49; Start 05/17/18 at 08:15; Stop 05/17/18 at 08:16 ; Status DC Lidocaine HCl (Xylocaine-Mpf 1% 2ml Vial) 2 ml 1X ONCE INJ Last administered on 05/17/18 08:50; Start 05/17/18 at 08:00; Stop 05/17/18 at 08:01; Status DC Budesonide (Pulmicort) 0.5 mg RTBID NEB Last administered on 05/19/18 07:02; Start 05/17/18 at 20:00 Albuterol Sulfate (Ventolin Neb Soln) 2.5 mg PRN Q4HRS PRN NEB SHORTNESS OF BREATH; Start 05/17/18 at 08:30 Guaifenesin (Robitussin Dm) 10 ml PRN Q6HRS PRN PO COUGH, 1st CHOICE Last administered on 05/18/18 21:24; Start 05/17/18 at 08:30 Sodium Chloride 1,000 ml @ 75 mls/hr [id number] IV Last administered on 16:08; Start 05/18/18 at 00:30 Levofloxacin/ Dextrose 50 ml @ 50 mls/hr Q24H IV Last administered on 00:45; Start 05/18/18 at 00:30; Stop 05/18/18 at 02:00; Status DC Vancomycin HCl (Vanco Per Pharmacy) 1 each PRN DAILY PRN MC SEE COMMENTS Last administered on 05/18/18at 10:49; Start 05/18/18 at 00:30 Vancomycin HCl 2 gm/Sodium Chloride 500 ml @ 250 mls/hr 1X ONCE IV Last administered on 05/18/18at 02:15; Start 05/18/18 at 01:00; Stop 05/18/18 at 02:59 ; Status DC Levofloxacin/ Dextrose 50 ml @ 50 mls/hr Q24H IV ; Start 05/18/18 at 22:00; Stop 05/18/18 at 22:00; Status DC Insulin Human Lispro (HumaLOG) 0-7 UNITS TIDWMEALS SQ Last administered on 05/19at 09:16; Start 05/18/18 at 09:30 Dextrose (Dextrose 50%-Water Syringe) 12.5 gm PRN Q15MIN PRN IV SEE COMMENTS; Start 05/18/18 at 09:30 Levofloxacin/ Dextrose 100 ml @ 100 mls/hr Q24H IV Last administered on at 21:00; Start 05/18/18 at 21:00 Vancomycin HCl 2 gm/Sodium Chloride 500 ml @ 250 mls/hr Q18H IV Last administered on 05/18/18at 21:15; Start 05/18/18 at 20:00 Vancomycin HCl (Vancomycin Trough Level) 1 each 1X ONCE MC ; Start 05/19/18 at 13:30; Stop 05/19/18 at 13:31 Multi-Ingred Cream/Lotion/Oil/ Oint (Hydrocerin Cream) 1 ritu QID TP Last administered on 05/19/18at 08:56; Start 05/18/18 at 12:00 Polyethylene Glycol (miraLAX PACKET) 17 gm 1X ONCE PO Last administered on 01/26at 12:00; Start 05/18/18 at 12:00; Stop 05/18/18 at 12:01; Status DC Polyethylene Glycol (miraLAX PACKET) 17 gm DAILY PO ; Start 05/19/18 at 09:00 Magnesium Hydroxide (Milk Of Magnesia) 2,400 mg 1X ONCE PO Last administered on 05/18/18at 12:44; Start 05/18/18 at 12:00; Stop 05/18/18 at 12:01; Status DC Magnesium Hydroxide (Milk Of Magnesia) 2,400 mg PRN DAILY PRN PO CONSTIPATION; Start 05/18/18 at 11:30 Bisacodyl (Dulcolax Supp) 10 mg PRN DAILY PRN ID CONSTIPATION; Start 05/18/18 at 11:30 Multivitamins (Thera M Plus) 1 tab DAILY PO Last administered on 05/19/18at 08: 59; Start 05/18/18 at 14:00 Diclofenac Sodium (Voltaren) 1 ritu BID TP Last administered on 05/19/18at 08:56 ; Start 05/18/18 at 21:00 Methylprednisolone Acetate (DEPO-Medrol 40MG VIAL) 40 mg 1X ONCE IM ; Start 01/26 at 16:15; Stop 05/18/18 at 16:20; Status DC Bupivacaine HCl (Sensorcaine-Mpf 0.25%) 10 ml 1X ONCE IJ ; Start 05/18/18 at 16 :15; Stop 05/18/18 at 16:20; Status DC Polysaccharide Iron Complex (Niferex 150) 150 mg BID PO Last administered on 02/25at 08:59; Start 05/18/18 at 21:00 Active Scripts Active Meloxicam 7.5 Mg Tablet 7.5 Mg PO DAILY Oxycodone Hcl Immed.release (Oxycodone Hcl) 5 Mg Tablet 10 Mg PO PRN Q4HRS PRN Reported Novolog Flexpen (Insulin Aspart) 100 Unit/1 Ml Insuln.pen 30 SQ TIDWMEALS Aspirin 325 Mg Tablet 0.5 Tab PO DAILY Senna-S Tablet (Sennosides/Docusate Sodium) 1 Each Tablet 1 Each PO BID Nyamyc (Nystatin) 15 Gm Powder 15 Gm TP DAILY Culturelle (Lactobacillus Rhamnosus Gg) 1 Each Capsule 1 Each PO BIDWMEALS Lantus Solostar (Insulin Glargine,Hum.rec.anlog) 100 Unit/1 Ml Insuln.pen 45 Unit SQ QHS Hydralazine Hcl 25 Mg Tablet 2 Tab PO TID [facility] Glucosamine-Chondr Tablet (Glucosamine Hcl/Chondr [place] A Na) 1 Each Tablet 2 Each PO DAILY Gabapentin (Gabapentin) 300 Mg Capsule 300 Mg PO HS Gabapentin (Gabapentin) 100 Mg Capsule 200 Mg PO BIDWBKFT/AVE Flonase Allergy Relief (Fluticasone Propionate) 9.9 Ml [place].susp 2 Sprays NS DAILY Elta Seal Moisture Barrier (Zinc Oxide) 114 Gm Cream..g. 114 Gm TP BID Diphenhydramine Hcl 50 Mg Capsule 25 Mg PO Q6HRS PRN Vitamin D3 (Cholecalciferol (Vitamin D3)) 1,000 Unit Tablet 2,000 Unit PO DAILY Atorvastatin Calcium 20 Mg Tablet DAILY Venlafaxine Hcl Er (Venlafaxine Hcl) 150 Mg Cap.er.24h DAILY Furosemide 20 Mg Tablet 40 Mg BID Lisinopril 40 Mg Tablet 40 DAILY Carvedilol 25 Mg Tablet 25 BID Pantoprazole Sodium 40 Mg Tablet.dr DAILY Bupropion Hcl Sr (Bupropion Hcl) 150 Mg Tablet.er 150 BID Allergies Allergies: Coded Allergies: cefuroxime (Verified Allergy, Intermediate, 05/11/16) piperacillin (Verified Adverse Reaction, Intermediate, RASH, 10/25/15) TOLERATED ERTAPENEM tazobactam (Verified Adverse Reaction, Intermediate, RASH, 10/25/15) TOLERATED ERTAPENEM zolpidem (Verified Adverse Reaction, Intermediate, HALLUCINATIONS, 10/25/15 ) glipizide (Verified Adverse Reaction, Mild, SENSITIVITY TO SUN, 10/25/15) Uncoded Allergies: DUST (Allergy, Mild, SNEEZING, 10/25/15) ROS General: YES: Appetite PSYCHOLOGICAL ROS: YES: Depression Eyes: Yes Decreased vision HEENT: YES: Heacaches Respiratory: YES: Cough Gastrointestinal: Yes Constipation Genitourinary: YES Other (NOCTURIA) Musculoskeletal: Yes Muscular Weakness Neurological: Yes Weakness Skin: Yes Dry Skin Physical Exam General: Alert, Oriented X3, Cooperative, No acute distress HEENT: Atraumatic, PERRLA, EOMI, Mucous membr. moist/pink Lungs: Clear to auscultation Heart: Regular rate Abdomen: Normal bowel sounds, Soft, No tenderness Extremities: No clubbing Neuro: Normal gait, Sensation intact Psych/Mental Status: Mood NL MUSCULOSKELETAL: Other (LEFT TMA) Vitals VITALS Vital Signs Date Time Temp Pulse Resp B/P (MAP) Pulse Ox O2 Delivery O2 Flow Rate FiO2 05/19/18 08:59 70 145/61 05/19/18 07:03 96 Room Air 05/19/18 07:00 97.5 18 97.5 Labs Labs Laboratory Tests Test 05/17/18 11:30 05/17/18 16:55 05/17/18 20:47 05/18/18 04:40 Glucose (Fingerstick) 214 mg/dL (70-99) 198 mg/dL (70-99) 263 mg/dL (70-99) White Blood Count 15.6 x10^3/uL (4.0-11.0) Red Blood Count 3.07 x10^6/uL (4.30-5.70) Hemoglobin 8.8 g/dL (13.0-17.5) Hematocrit 26.9 % (39.0-53.0) Mean Corpuscular Volume 87 fL (79-100) Mean Corpuscular Hemoglobin 29 pg (25-35) Mean Corpuscular Hemoglobin Concent 33 g/dL (31-37) Red Cell Distribution Width 13.4 % (11.5-14.5) Platelet Count 258 x10^3/uL (140-400) Neutrophils (%) (Auto) 95 % (31-73) Lymphocytes (%) (Auto) 2 % (24-48) Monocytes (%) (Auto) 3 % (0-9) Eosinophils (%) (Auto) 0 % (0-3) Basophils (%) (Auto) 0 % (0-3) Neutrophils # (Auto) 14.7 x10^3uL (1.8-7.7) Lymphocytes # (Auto) 0.4 x10^3/uL (1.0-4.8) Monocytes # (Auto) 0.4 x10^3/uL (0.0-1.1) Eosinophils # (Auto) 0.0 x10^3/uL (0.0-0.7) Basophils # (Auto) 0.0 x10^3/uL (0.0-0.2) Segmented Neutrophils % 97 % (35-66) Lymphocytes % 2 % (24-48) Monocytes % 1 % (0-10) Platelet Estimate Adequate (ADEQUATE) Sodium Level 138 mmol/L (136-145) Potassium Level 4.5 mmol/L (3.5-5.1) Chloride Level 102 mmol/L (98-107) Carbon Dioxide Level 23 mmol/L (21-32) Anion Gap 13 (6-14) Blood Urea Nitrogen 52 mg/dL (8-26) Creatinine 1.7 mg/dL (0.7-1.3) Estimated GFR (Cockcroft-Gault) 40.0 Glucose Level 310 mg/dL (70-99) Calcium Level 9.1 mg/dL (8.5-10.1) Phosphorus Level 2.4 mg/dL (2.6-4.7) Albumin 2.3 g/dL (3.4-5.0) Procalcitonin 0.14 ng/mL (0.00-0.10) Test 05/18/18 07:13 05/18/18 07:25 05/18/18 11:03 05/18/18 16:05 Glucose (Fingerstick) 295 mg/dL (70-99) 226 mg/dL (70-99) Influenza Type A Antigen Negative (NEGATIVE) Influenza Type B Antigen Negative (NEGATIVE) O2 Saturation 94 % (92-99) Arterial Blood pH 7.39 (7.35-7.45) Arterial Blood pCO2 at Patient Temp 42 mmHg (35-46) Arterial Blood pO2 at Patient Temp 74 mmHg (65-108) Arterial Blood HCO3 25 mmol/L (21-28) Arterial Blood Base Excess -0 mmol/L (-3-3) FiO2 21 Test 05/18/18 16:20 05/18/18 17:55 05/18/18 20:13 05/19/18 03:00 Glucose (Fingerstick) 192 mg/dL (70-99) 186 mg/dL (70-99) Lactic Acid Level 1.6 mmol/L (0.4-2.0) Erythrocyte Sedimentation Rate > 130 (0-15) Creatinine 1.7 mg/dL (0.7-1.3) Estimated GFR (Cockcroft-Gault) 40.0 Test 05/19/18 09:07 Glucose (Fingerstick) 216 mg/dL (70-99) Laboratory Tests Test 05/18/18 11:03 05/18/18 16:05 05/18/18 16:20 05/18/18 17:55 Glucose (Fingerstick) 226 mg/dL (70-99) 192 mg/dL (70-99) O2 Saturation 94 % (92-99) Arterial Blood pH 7.39 (7.35-7.45) Arterial Blood pCO2 at Patient Temp 42 mmHg (35-46) Arterial Blood pO2 at Patient Temp 74 mmHg (65-108) Arterial Blood HCO3 25 mmol/L (21-28) Arterial Blood Base Excess -0 mmol/L (-3-3) FiO2 21 Lactic Acid Level 1.6 mmol/L (0.4-2.0) Test 05/18/18 20:13 05/19/18 03:00 05/19/18 09:07 Glucose (Fingerstick) 186 mg/dL (70-99) 216 mg/dL (70-99) Erythrocyte Sedimentation Rate > 130 (0-15) Creatinine 1.7 mg/dL (0.7-1.3) Estimated GFR (Cockcroft-Gault) 40.0 Assessment/Plan Assessment/Plan IMP CKD STAGE 3-CR AT HIS USUAL BASELINE OF 1.7 MORBID OBESITY DM II HTN KNEE OA PLAN PER ORTHO ENC CONTROL OF DM AND HTN HAVE ASKED PT TO F/U WITH US AT D/C WILL NEED TO HAVE 24 HR - CAN BE DONE OPO WILL BENEFIT FROM AN JOHN-I ALL CAN BE DONE OP WILL FOLLOW NEEDED DENG ARVIZU MD May 19, 2018 11:05
--- NOTE | 2018-05-19 11:16 | PDOC ---
PROGRESS NOTES Chief Complaint Chief Complaint Right big toe wound-looks not infected status post IND All toes amputated left foot Severe bilateral knee osteoarthritis Inability to care for self Morbid obesity with a BMI of 56 Impaired mobility as a consequence of the severe osteoarthritis Leukocytosis which may be reactive but in light of his multiple skin lesions cannot rule out an infection Hyponatremia of no clinical consequence Normocytic anemia of chronic inflammation Hypertension, controlled Dyslipidemia History of diabetes mellitus type 2 insulin requiring Obesity hypovent syndrome History of Present Illness History of Present Illness Sleepy- he cannot wake up for a long conversation with me Did not need BiPAP Agreeable to SNU Social work looking at other SNU places I did inspect the wound, right big toe wound looks good not infected WBC mildly elevated with no fevers, ESR 130 Getting vancomycin and Levaquin Plan: continue IV vancomycin Levaquin SNU on discharge DC gabapentin-to sleepy Current IVF to consume Discussed with RN at bedside Vitals Vitals Vital Signs Date Time Temp Pulse Resp B/P (MAP) Pulse Ox O2 Delivery O2 Flow Rate FiO2 05/19/18 11:06 96 Room Air 05/19/18 08:59 70 145/61 05/19/18 07:00 97.5 18 97.5 Physical Exam General: Alert, Oriented X3, Cooperative, No acute distress Heart: Regular rate Lungs: Clear Abdomen: Normal bowel sounds, Soft, No tenderness Extremities: No clubbing Skin: Other (Gluteal bruising) Labs LABS Laboratory Tests Test 05/18/18 16:05 05/18/18 16:20 05/18/18 17:55 05/18/18 20:13 O2 Saturation 94 % (92-99) Arterial Blood pH 7.39 (7.35-7.45) Arterial Blood pCO2 at Patient Temp 42 mmHg (35-46) Arterial Blood pO2 at Patient Temp 74 mmHg (65-108) Arterial Blood HCO3 25 mmol/L (21-28) Arterial Blood Base Excess -0 mmol/L (-3-3) FiO2 21 Glucose (Fingerstick) 192 mg/dL (70-99) 186 mg/dL (70-99) Lactic Acid Level 1.6 mmol/L (0.4-2.0) Test 05/19/18 03:00 05/19/18 09:07 Erythrocyte Sedimentation Rate > 130 (0-15) Creatinine 1.7 mg/dL (0.7-1.3) Estimated GFR (Cockcroft-Gault) 40.0 Glucose (Fingerstick) 216 mg/dL (70-99) Review of Systems Review of Systems Too sleepy for ROS Assessment and Plan Assessmemt and Plan Problems Medical Problems: (1) Chronic knee pain Status: Acute Comment Review of Relevant I have reviewed the following items minnie (where applicable) has been applied. Labs Laboratory Tests Test 05/17/18 11:30 05/17/18 16:55 05/17/18 20:47 05/18/18 04:40 Glucose (Fingerstick) 214 mg/dL (70-99) 198 mg/dL (70-99) 263 mg/dL (70-99) White Blood Count 15.6 x10^3/uL (4.0-11.0) Red Blood Count 3.07 x10^6/uL (4.30-5.70) Hemoglobin 8.8 g/dL (13.0-17.5) Hematocrit 26.9 % (39.0-53.0) Mean Corpuscular Volume 87 fL (79-100) Mean Corpuscular Hemoglobin 29 pg (25-35) Mean Corpuscular Hemoglobin Concent 33 g/dL (31-37) Red Cell Distribution Width 13.4 % (11.5-14.5) Platelet Count 258 x10^3/uL (140-400) Neutrophils (%) (Auto) 95 % (31-73) Lymphocytes (%) (Auto) 2 % (24-48) Monocytes (%) (Auto) 3 % (0-9) Eosinophils (%) (Auto) 0 % (0-3) Basophils (%) (Auto) 0 % (0-3) Neutrophils # (Auto) 14.7 x10^3uL (1.8-7.7) Lymphocytes # (Auto) 0.4 x10^3/uL (1.0-4.8) Monocytes # (Auto) 0.4 x10^3/uL (0.0-1.1) Eosinophils # (Auto) 0.0 x10^3/uL (0.0-0.7) Basophils # (Auto) 0.0 x10^3/uL (0.0-0.2) Segmented Neutrophils % 97 % (35-66) Lymphocytes % 2 % (24-48) Monocytes % 1 % (0-10) Platelet Estimate Adequate (ADEQUATE) Sodium Level 138 mmol/L (136-145) Potassium Level 4.5 mmol/L (3.5-5.1) Chloride Level 102 mmol/L (98-107) Carbon Dioxide Level 23 mmol/L (21-32) Anion Gap 13 (6-14) Blood Urea Nitrogen 52 mg/dL (8-26) Creatinine 1.7 mg/dL (0.7-1.3) Estimated GFR (Cockcroft-Gault) 40.0 Glucose Level 310 mg/dL (70-99) Calcium Level 9.1 mg/dL (8.5-10.1) Phosphorus Level 2.4 mg/dL (2.6-4.7) Albumin 2.3 g/dL (3.4-5.0) Procalcitonin 0.14 ng/mL (0.00-0.10) Test 05/18/18 07:13 05/18/18 07:25 05/18/18 11:03 05/18/18 16:05 Glucose (Fingerstick) 295 mg/dL (70-99) 226 mg/dL (70-99) Influenza Type A Antigen Negative (NEGATIVE) Influenza Type B Antigen Negative (NEGATIVE) O2 Saturation 94 % (92-99) Arterial Blood pH 7.39 (7.35-7.45) Arterial Blood pCO2 at Patient Temp 42 mmHg (35-46) Arterial Blood pO2 at Patient Temp 74 mmHg (65-108) Arterial Blood HCO3 25 mmol/L (21-28) Arterial Blood Base Excess -0 mmol/L (-3-3) FiO2 21 Test 05/18/18 16:20 05/18/18 17:55 05/18/18 20:13 05/19/18 03:00 Glucose (Fingerstick) 192 mg/dL (70-99) 186 mg/dL (70-99) Lactic Acid Level 1.6 mmol/L (0.4-2.0) Erythrocyte Sedimentation Rate > 130 (0-15) Creatinine 1.7 mg/dL (0.7-1.3) Estimated GFR (Cockcroft-Gault) 40.0 Test 05/19/18 09:07 Glucose (Fingerstick) 216 mg/dL (70-99) Laboratory Tests Test 05/18/18 16:05 05/18/18 16:20 05/18/18 17:55 05/18/18 20:13 O2 Saturation 94 % (92-99) Arterial Blood pH 7.39 (7.35-7.45) Arterial Blood pCO2 at Patient Temp 42 mmHg (35-46) Arterial Blood pO2 at Patient Temp 74 mmHg (65-108) Arterial Blood HCO3 25 mmol/L (21-28) Arterial Blood Base Excess -0 mmol/L (-3-3) FiO2 21 Glucose (Fingerstick) 192 mg/dL (70-99) 186 mg/dL (70-99) Lactic Acid Level 1.6 mmol/L (0.4-2.0) Test 05/19/18 03:00 05/19/18 09:07 Erythrocyte Sedimentation Rate > 130 (0-15) Creatinine 1.7 mg/dL (0.7-1.3) Estimated GFR (Cockcroft-Gault) 40.0 Glucose (Fingerstick) 216 mg/dL (70-99) Medications Current Medications Ibuprofen (Motrin) 400 mg 1X ONCE PO Last administered on 05/15/18at 10:58; Start 05/15/18 at 10:30; Stop 05/15/18 at 10:31; Status DC Ondansetron HCl (Zofran) 4 mg PRN Q4HRS PRN IV NAUSEA/VOMITING; Start 05/15/18 at 14:15 Zolpidem Tartrate (Ambien) 5 mg PRN QHS PRN PO INSOMNIA Last administered on 05/16/18at 23:29; Start 05/15/18 at 14:15; Stop 05/17/18 at 23:35; Status DC Acetaminophen (Tylenol) 650 mg PRN Q4HRS PRN PO TEMP OVER 100.4F OR MILD PAIN Last administered on 05/16/18at 23:29; Start 05/15/18 at 14:15 Clonidine HCl (Catapres) 0.1 mg PRN Q6HRS PRN PO SBP>160 OR DBP>90; Start at 14:15 Albuterol/ Ipratropium (Duoneb) 3 ml Q4HRS NEB Last administered on 05/19/18at 11:03; Start 05/15/18 at 16:00 Guaifenesin (Robitussin) 200 mg PRN Q4HRS PRN PO COUGH, 2nd CHOICE Last administered on 05/15/18 20:15; Start 05/15/18 at 14:15 Lorazepam (Ativan) 0.5 mg PRN Q4HRS PRN PO ANXIETY / AGITATION Last administered on 05/16/18 23:29; Start 05/15/18 at 14:15 Enoxaparin Sodium (Lovenox 60mg Syringe) 60 mg Q12HR SQ ; Start 05/15/18 at 21:00 ; Status Cancel Aspirin (Jacquelin Aspirin) 162.5 mg DAILY PO Last administered on 05/19/18 08:57 ; Start 05/15/18 at 15:30 Atorvastatin Calcium (Lipitor) 20 mg QHS PO Last administered on 05/18/18 21: 17; Start 05/15/18 at 21:00 Bupropion HCl (Wellbutrin Sr) 150 mg BID PO Last administered on 05/18/18 08: 07; Start 05/15/18 at 21:00; Stop 05/18/18 at 18:14; Status DC Vitamin D (Vitamin D3) 2,000 unit DAILY PO Last administered on 05/19/18 08:57 ; Start 05/15/18 at 15:30 Furosemide (Lasix) 40 mg [id number] PO Last administered on 05/15/18 17:33; Start at 16:00; Stop 05/16/18 at 10:55; Status DC Gabapentin (Neurontin) 200 mg BIDWBKFT/AVE PO Last administered on 05/18/18 12 :44; Start 05/16/18 at 08:00; Stop 05/18/18 at 16:18; Status DC Gabapentin (Neurontin) 300 mg HS PO Last administered on 05/17/18 22:07; Start 05/15/18 at 21:00 Insulin Glargine (Lantus) 45 units QHS SQ Last administered on 05/18/18 21:31 ; Start 05/15/18 at 21:00 Lisinopril (Prinivil) 40 mg DAILY PO Last administered on 05/15/18 17:37; Start 05/15/18 at 15:30; Stop 05/16/18 at 10:55; Status DC Nystatin (Nystop) 15 ritu DAILY TP Last administered on 05/19/18 09:20; Start 05/16/18 at 09:00 Oxycodone HCl (Roxicodone) 10 mg PRN Q4HRS PRN PO MODERATE TO SEVERE PAIN Last administered on 05/18/18 06:22; Start 05/15/18 at 14:15 Pantoprazole Sodium (Protonix) 40 mg DAILYAC PO Last administered on 05/19/18 08:57; Start 05/15/18 at 15:30 Senna/Docusate Sodium (Senna Plus) 1 tab BID PO Last administered on 05/19/18 08:59; Start 05/15/18 at 21:00 Carvedilol (Coreg) 25 mg BIDWMEALS PO Last administered on 05/19/18 08:59; Start 05/15/18 at 17:00 Diphenhydramine HCl (Benadryl) 25 mg PRN Q6HRS PRN PO ALLERGIES; Start 05/15/18 at 14:30; Stop 05/18/18 at 18:14; Status DC Fluticasone Propionate (Flonase) 2 spray DAILY NS Last administered on 08:57; Start 05/16/18 at 09:00 Non-Formulary Medication (Glucosamine Hcl/ Chondr [place] A Na ([facility] Glucosamine- Chondr Tablet)) 2 each DAILY PO ; Start 05/16/18 at 09:00; Status UNV Hydralazine HCl (Apresoline) 50 mg TID PO Last administered on 05/19/18 08:58 ; Start 05/15/18 at 15:30 Insulin Human Lispro (HumaLOG) 30 units TIDWMEALS SQ Last administered on 09:14; Start 05/15/18 at 17:00 Lactobacillus Rhamnosus (Culturelle) 1 cap BID PO Last administered on 08:59; Start 05/15/18 at 21:00 Meloxicam (Mobic) 7.5 mg DAILY PO Last administered on 05/18/18 08:05; Start 05/15/18 at 15:30; Stop 05/18/18 at 16:18; Status DC Zinc Oxide (Zinc Oxide 20% Topical) 1 ritu BID TP Last administered on 09:20; Start 05/15/18 at 21:00 Ondansetron HCl (Zofran) 4 mg PRN Q8HRS PRN IV NAUSEA/VOMITING; Start 05/15/18 at 14:30; Stop 05/16/18 at 14:29; Status DC Acetaminophen (Tylenol) 650 mg PRN Q4HRS PRN PO FEVER; Start 05/15/18 at 14:30; Stop 05/16/18 at 14:29; Status DC Morphine Sulfate (Morphine Sulfate) 2 mg PRN Q2HR PRN IV PAIN Last administered on 05/16/18at 08:48; Start 05/15/18 at 15:45 Heparin Sodium (Porcine) (Heparin Sodium) 5,000 unit Q8HRS SQ Last administered on 05/19/18at 06:13; Start 05/15/18 at 22:00 Methylprednisolone Acetate (DEPO-Medrol 80MG VIAL) 80 mg 1X ONCE INJ Last administered on 05/17/18at 08:49; Start 05/17/18 at 08:15; Stop 05/17/18 at 08:16 ; Status DC Lidocaine HCl (Xylocaine-Mpf 1% 2ml Vial) 2 ml 1X ONCE INJ Last administered on 05/17/18at 08:50; Start 05/17/18 at 08:00; Stop 05/17/18 at 08:01; Status DC Budesonide (Pulmicort) 0.5 mg RTBID NEB Last administered on 05/19/18at 07:02; Start 05/17/18 at 20:00 Albuterol Sulfate (Ventolin Neb Soln) 2.5 mg PRN Q4HRS PRN NEB SHORTNESS OF BREATH; Start 05/17/18 at 08:30 Guaifenesin (Robitussin Dm) 10 ml PRN Q6HRS PRN PO COUGH, 1st CHOICE Last administered on 05/18/18 21:24; Start 05/17/18 at 08:30 Sodium Chloride 1,000 ml @ 75 mls/hr [id number] IV Last administered on at 16:08; Start 05/18/18 at 00:30 Levofloxacin/ Dextrose 50 ml @ 50 mls/hr Q24H IV Last administered on at 00:45; Start 05/18/18 at 00:30; Stop 05/18/18 at 02:00; Status DC Vancomycin HCl (Vanco Per Pharmacy) 1 each PRN DAILY PRN MC SEE COMMENTS Last administered on 05/18/18at 10:49; Start 05/18/18 at 00:30 Vancomycin HCl 2 gm/Sodium Chloride 500 ml @ 250 mls/hr 1X ONCE IV Last administered on 05/18/18at 02:15; Start 05/18/18 at 01:00; Stop 05/18/18 at 02:59 ; Status DC Levofloxacin/ Dextrose 50 ml @ 50 mls/hr Q24H IV ; Start 05/18/18 at 22:00; Stop 05/18/18 at 22:00; Status DC Insulin Human Lispro (HumaLOG) 0-7 UNITS TIDWMEALS SQ Last administered on 05/19at 09:16; Start 05/18/18 at 09:30 Dextrose (Dextrose 50%-Water Syringe) 12.5 gm PRN Q15MIN PRN IV SEE COMMENTS; Start 05/18/18 at 09:30 Levofloxacin/ Dextrose 100 ml @ 100 mls/hr Q24H IV Last administered on at 21:00; Start 05/18/18 at 21:00 Vancomycin HCl 2 gm/Sodium Chloride 500 ml @ 250 mls/hr Q18H IV Last administered on 05/18/18at 21:15; Start 05/18/18 at 20:00 Vancomycin HCl (Vancomycin Trough Level) 1 each 1X ONCE MC ; Start 05/19/18 at 13:30; Stop 05/19/18 at 13:31 Multi-Ingred Cream/Lotion/Oil/ Oint (Hydrocerin Cream) 1 ritu QID TP Last administered on 05/19/18at 08:56; Start 05/18/18 at 12:00 Polyethylene Glycol (miraLAX PACKET) 17 gm 1X ONCE PO Last administered on 01/26at 12:00; Start 05/18/18 at 12:00; Stop 05/18/18 at 12:01; Status DC Polyethylene Glycol (miraLAX PACKET) 17 gm DAILY PO ; Start 05/19/18 at 09:00 Magnesium Hydroxide (Milk Of Magnesia) 2,400 mg 1X ONCE PO Last administered on 05/18/18at 12:44; Start 05/18/18 at 12:00; Stop 05/18/18 at 12:01; Status DC Magnesium Hydroxide (Milk Of Magnesia) 2,400 mg PRN DAILY PRN PO CONSTIPATION; Start 05/18/18 at 11:30 Bisacodyl (Dulcolax Supp) 10 mg PRN DAILY PRN [place] CONSTIPATION; Start 05/18/18 at 11:30 Multivitamins (Thera M Plus) 1 tab DAILY PO Last administered on 05/19/18at 08: 59; Start 05/18/18 at 14:00 Diclofenac Sodium (Voltaren) 1 ritu BID TP Last administered on 05/19/18at 08:56 ; Start 05/18/18 at 21:00 Methylprednisolone Acetate (DEPO-Medrol 40MG VIAL) 40 mg 1X ONCE IM ; Start 01/26 at 16:15; Stop 05/18/18 at 16:20; Status DC Bupivacaine HCl (Sensorcaine-Mpf 0.25%) 10 ml 1X ONCE IJ ; Start 05/18/18 at 16 :15; Stop 05/18/18 at 16:20; Status DC Polysaccharide Iron Complex (Niferex 150) 150 mg BID PO Last administered on 02/25at 08:59; Start 05/18/18 at 21:00 Active Scripts Active Meloxicam 7.5 Mg Tablet 7.5 Mg PO DAILY Oxycodone Hcl Immed.release (Oxycodone Hcl) 5 Mg Tablet 10 Mg PO PRN Q4HRS PRN Reported Novolog Flexpen (Insulin Aspart) 100 Unit/1 Ml Insuln.pen 30 SQ TIDWMEALS Aspirin 325 Mg Tablet 0.5 Tab PO DAILY Senna-S Tablet (Sennosides/Docusate Sodium) 1 Each Tablet 1 Each PO BID Nyamyc (Nystatin) 15 Gm Powder 15 Gm TP DAILY Culturelle (Lactobacillus Rhamnosus Gg) 1 Each Capsule 1 Each PO BIDWMEALS Lantus Solostar (Insulin Glargine,Hum.rec.anlog) 100 Unit/1 Ml Insuln.pen 45 Unit SQ QHS Hydralazine Hcl 25 Mg Tablet 2 Tab PO TID [facility] Glucosamine-Chondr Tablet (Glucosamine Hcl/Chondr [place] A Na) 1 Each Tablet 2 Each PO DAILY Gabapentin (Gabapentin) 300 Mg Capsule 300 Mg PO HS Gabapentin (Gabapentin) 100 Mg Capsule 200 Mg PO BIDWBKFT/AVE Flonase Allergy Relief (Fluticasone Propionate) 9.9 Ml [place].susp 2 Sprays NS DAILY Elta Seal Moisture Barrier (Zinc Oxide) 114 Gm Cream..g. 114 Gm TP BID Diphenhydramine Hcl 50 Mg Capsule 25 Mg PO Q6HRS PRN Vitamin D3 (Cholecalciferol (Vitamin D3)) 1,000 Unit Tablet 2,000 Unit PO DAILY Atorvastatin Calcium 20 Mg Tablet DAILY Venlafaxine Hcl Er (Venlafaxine Hcl) 150 Mg Cap.er.24h DAILY Furosemide 20 Mg Tablet 40 Mg BID Lisinopril 40 Mg Tablet 40 DAILY Carvedilol 25 Mg Tablet 25 BID Pantoprazole Sodium 40 Mg Tablet.dr DAILY Bupropion Hcl Sr (Bupropion Hcl) 150 Mg Tablet.er 150 BID Vitals/I & O Vital Sign - Last 24 Hours 05/18/18 05/18/18 05/18/18 05/18/18 15:00 16:07 17:20 19:00 Temp 98.1 98.9 98.1 98.9 Pulse 66 66 66 69 Resp 16 12 B/P (MAP) 143/68 (93) 143/68 143/68 177/56 (96) Pulse Ox 100 96 O2 Delivery Room Air Room Air 05/18/18 05/18/18 05/18/18 05/18/18 19:47 20:00 21:16 22:37 Temp 98.7 98.7 Pulse 69 71 Resp 12 B/P (MAP) 177/69 170/72 (104) Pulse Ox 91 97 O2 Delivery Room Air Room Air Room Air 05/18/18 05/19/18 05/19/18 05/19/18 23:50 01:00 02:34 03:00 Temp 98.9 98.9 Pulse 68 Resp 16 B/P (MAP) 190/74 (112) Pulse Ox 96 O2 Delivery Room Air BiPAP/CPAP Room Air Room Air 05/19/18 05/19/18 05/19/18 05/19/18 07:00 07:03 08:58 08:59 Temp 97.5 97.5 Pulse 70 70 70 Resp 18 B/P (MAP) 145/61 (89) 145/61 145/61 Pulse Ox 100 96 O2 Delivery Room Air Room Air 05/19/18 11:06 Pulse Ox 96 O2 Delivery Room Air Intake and Output 05/18/18 05/18/18 05/19/18 14:59 22:59 06:59 Output Total 650 ml 1 ml Balance -650 ml -1 ml VENTURA JULES MD May 19, 2018 11:16
[2018-05-19 14:39] LABS: VANC TR 16.7 mcg/mL (10.0-20.0)
[2018-05-19] MEDS: VANCOMYCIN PER PHARMACY MC PRN (14:51)
--- NOTE | 2018-05-19 14:52 | NUR ---
Pharmacy Vancomycin Dosing Note S:Consulted to monitor and dose vancomycin started 05/18/18. O:LACI RASCON is a 72 year old M with Cellulitis Pneumonia . Height: 5 feet, 9 inches Weight: 172.887992 kg [place] Body Weight: 208.70 Adjusted Body Weight: 194.02 Dosing Weight: Other Antibiotics: LEVAQUIN 500 MG IV Q24HRS LABS: Last BUN: 52 Last Creatinine: 1.7 Creatinine Clearance: 64 mL/min Last WBC: 15.6 Last Procalcitonin: DIAMOND - not applicable Tmax (past 24 hours): 98.9 Microbiology: NONE ORDERED I/O: -/651 Drug Levels: Last Trough level: 16.7 on 05/19/18 at 1315 Last dose given 05/18/18 at 2115 Vancomycin Dosing: Loading Dose: 2000 mg x1 Dosing Weight: Target Trough: 15-20 A: Based on: Therapeutic trough P: 1. Continue Vancomycin 2000 mg IV q18h. 2. Follow up Trough level on as needed. 3. Pharmacy will continue to monitor, follow and adjust therapy as needed. DANETTE SOTO RPH, 05/19/18 [id number]
[2018-05-19 15:00] VITALS: BP 143/55
[2018-05-19] MEDS: VANCOMYCIN 2 GM in IV NORMAL SALINE 500ML BAG 500 ML IV SCH (15:32)
--- NOTE | 2018-05-19 16:24 | NUR ---
SW following. Discussed with RN. SW met with pt to discuss discharge planning. SW faxed referral to [facility] as pt stated his had been there and he didn't mind. Pt reported his really can't take care of him anymore so pt is interested in SNU to [place]. [facility] came to speak with pt and have submitted for insurance approval. SW will continue to follow. RN notified.
[2018-05-19] MEDS: DEXTROSE 50% 25 GM / 50ML DISP.SYRIN. IV PRN (16:35)
[2018-05-19] MEDS: guaiFENesin ORAL 200 MG/10 ML LIQUID. PO PRN ×2 (16:49→22:12)
[2018-05-19] MEDS: BENZOCAINE/MENTHOL LOZENGE. PO PRN ×2 (16:49→19:20)
[2018-05-19 19:00] VITALS: BP 162/65
[2018-05-19] MEDS: INSULIN GLARGINE 300 UNITS/3 ML INSULN.PEN. SQ SCH (21:00)
[2018-05-19] MEDS: ATORVASTATIN CALCIUM 20 MG TABLET PO SCH (22:16)
[2018-05-19 23:00] VITALS: BP 125/62
[2018-05-20] MEDS: oxyCODONE IR 5 MG TABLET PO PRN ×4 (02:33→20:37)
[2018-05-20] MEDS: BENZOCAINE/MENTHOL LOZENGE. PO PRN (02:33)
[2018-05-20 03:00] VITALS: BP 154/54
[2018-05-20] MEDS: IPRATRPIUM/ALBUTEROL 0.5/2.5MG 3 ML NEBU. NEB SCH ×6 (03:21→23:10)
[2018-05-20 05:11] LABS: CALCIUM 9.2 mg/dL (8.5-10.1); CREATININE 1.5 mg/dL (0.7-1.3); GFR 46.3; POTASSIUM 4.7 mmol/L (3.5-5.1)
[2018-05-20] MEDS: PANTOPRAZOLE 40 MG TABLET.DR. PO SCH (05:44)
[2018-05-20] MEDS: HEPARIN for SUB-Q USE 5,000 UNIT/ML VIAL. SQ SCH ×3 (05:46→20:49)
[2018-05-20] MEDS: BUDESONIDE 0.5 MG/2 ML NEBU. NEB SCH ×2 (06:58→19:21)
[2018-05-20 07:00] VITALS: BP 133/64
[2018-05-20] MEDS: INSULIN LISPRO 300 UNITS/3 ML INSULN.PEN. SQ SCH ×6 (08:00→17:00)
[2018-05-20] MEDS: CARVEDILOL 12.5 MG TABLET. PO SCH ×2 (08:10→17:10)
[2018-05-20] MEDS: VANCOMYCIN 2 GM in IV NORMAL SALINE 500ML BAG 500 ML IV SCH (08:10)
[2018-05-20] MEDS: ZINC OXIDE 20% TOPICAL OINTMENT 28GM TUBE. TP SCH ×2 (08:51→20:35)
[2018-05-20] MEDS: LACTOBACILLUS RHAMNOSUS GG 1 CAPSULE. PO SCH ×2 (08:52→20:34)
[2018-05-20] MEDS: IRON POLYSACCHARIDE COMPLEX 150 MG CAPSULE PO SCH ×2 (08:52→20:34)
[2018-05-20] MEDS: SENNOSIDES/DOCUSATE 8.6/50MG TABLET. PO SCH ×2 (08:52→20:34)
[2018-05-20] MEDS: ASPIRIN 325 MG TABLET PO SCH (08:52)
[2018-05-20] MEDS: DICLOFENAC SODIUM 1% TOPICAL GEL 100GM TUBE. TP SCH ×2 (08:52→20:35)
[2018-05-20] MEDS: CHOLECALCIFEROL (VITAMIN D3) 1,000 UNIT TABLET PO SCH (08:52)
[2018-05-20] MEDS: POLYETHYLENE GLYCOL 3350 17 GM PACKET. PO SCH (08:52)
[2018-05-20] MEDS: MULTIVITAMIN with MINERAL TABLET. PO SCH (08:52)
[2018-05-20] MEDS: FLUTICASONE 50MCG/NASAL SPRAY 16GM BOTTLE. NS SCH (08:53)
[2018-05-20] MEDS: MINERAL OIL/PETROLATUM TOPICAL CREAM 113GM JAR. TP SCH ×4 (08:53→20:35)
[2018-05-20] MEDS: NYSTATIN TOPICAL POWDER 15GM BOTTLE. TP SCH (08:53)
--- NOTE | 2018-05-20 10:05 | PDOC ---
PROGRESS NOTES Subjective Subjective He still admits neck pain. Objective Objective Vital Signs Date Time Temp Pulse Resp B/P (MAP) Pulse Ox O2 Delivery O2 Flow Rate FiO2 05/20/18 09:09 18 Room Air 05/20/18 08:57 78 133/56 05/20/18 07:00 97.9 99 97.9 Intake and Output 05/20/18 06:59 Output Total 2000 ml Balance -2000 ml Output Urine Total 2000 ml Physical Exam Physical Exam He is alert,and he is getting up with occupational therapy to bathroom walking with roller walker.He continues with low physical endurance and mobility and self care limitations and his felt that she could not take care of him at home. clean up worker trying to place him in a SNF. He continues with painfully limited cervical spine ROM with tenderness to palpation ove rleft cervical paraspinal muscles. Assessment Assessment Problems Medical Problems: (1) Chronic knee pain Status: Acute Plan Plan of Care Agree with plans for transfer to SNF when medically stable. Comment Review of Relevant I have reviewed the following items minnie (where applicable) has been applied. Labs Laboratory Tests Test 05/18/18 11:03 05/18/18 16:05 05/18/18 16:20 05/18/18 17:55 Glucose (Fingerstick) 226 mg/dL (70-99) 192 mg/dL (70-99) O2 Saturation 94 % (92-99) Arterial Blood pH 7.39 (7.35-7.45) Arterial Blood pCO2 at Patient Temp 42 mmHg (35-46) Arterial Blood pO2 at Patient Temp 74 mmHg (65-108) Arterial Blood HCO3 25 mmol/L (21-28) Arterial Blood Base Excess -0 mmol/L (-3-3) FiO2 21 Lactic Acid Level 1.6 mmol/L (0.4-2.0) Test 05/18/18 20:13 05/19/18 03:00 05/19/18 09:07 05/19/18 11:35 Glucose (Fingerstick) 186 mg/dL (70-99) 216 mg/dL (70-99) 195 mg/dL (70-99) Erythrocyte Sedimentation Rate > 130 (0-15) Creatinine 1.7 mg/dL (0.7-1.3) Estimated GFR (Cockcroft-Gault) 40.0 Test 05/19/18 13:15 05/19/18 16:36 05/19/18 16:49 05/19/18 21:12 Vancomycin Level Trough 16.7 mcg/mL (10.0-20.0) Vancomycin Last Dose Date Unknown Vancomycin Last Dose Time Unknown Glucose (Fingerstick) 49 mg/dL (70-99) 81 mg/dL (70-99) 107 mg/dL (70-99) Test 05/20/18 03:50 05/20/18 07:26 Sodium Level 143 mmol/L (136-145) Potassium Level 4.7 mmol/L (3.5-5.1) Chloride Level 107 mmol/L (98-107) Carbon Dioxide Level 27 mmol/L (21-32) Anion Gap 9 (6-14) Blood Urea Nitrogen 45 mg/dL (8-26) Creatinine 1.5 mg/dL (0.7-1.3) Estimated GFR (Cockcroft-Gault) 46.3 Glucose Level 97 mg/dL (70-99) Calcium Level 9.2 mg/dL (8.5-10.1) Glucose (Fingerstick) 117 mg/dL (70-99) Laboratory Tests Test 05/19/18 11:35 05/19/18 13:15 05/19/18 16:36 05/19/18 16:49 Glucose (Fingerstick) 195 mg/dL (70-99) 49 mg/dL (70-99) 81 mg/dL (70-99) Vancomycin Level Trough 16.7 mcg/mL (10.0-20.0) Vancomycin Last Dose Date Unknown Vancomycin Last Dose Time Unknown Test 05/19/18 21:12 05/20/18 03:50 05/20/18 07:26 Glucose (Fingerstick) 107 mg/dL (70-99) 117 mg/dL (70-99) Sodium Level 143 mmol/L (136-145) Potassium Level 4.7 mmol/L (3.5-5.1) Chloride Level 107 mmol/L (98-107) Carbon Dioxide Level 27 mmol/L (21-32) Anion Gap 9 (6-14) Blood Urea Nitrogen 45 mg/dL (8-26) Creatinine 1.5 mg/dL (0.7-1.3) Estimated GFR (Cockcroft-Gault) 46.3 Glucose Level 97 mg/dL (70-99) Calcium Level 9.2 mg/dL (8.5-10.1) Medications Current Medications Ibuprofen (Motrin) 400 mg 1X ONCE PO Last administered on 05/15/18 10:58; Start 05/15/18 at 10:30; Stop 05/15/18 at 10:31; Status DC Ondansetron HCl (Zofran) 4 mg PRN Q4HRS PRN IV NAUSEA/VOMITING; Start 05/15/18 at 14:15 Zolpidem Tartrate (Ambien) 5 mg PRN QHS PRN PO INSOMNIA Last administered on 23:29; Start 05/15/18 at 14:15; Stop 05/17/18 at 23:35; Status DC Acetaminophen (Tylenol) 650 mg PRN Q4HRS PRN PO TEMP OVER 100.4F OR MILD PAIN Last administered on 05/16/18 23:29; Start 05/15/18 at 14:15 Clonidine HCl (Catapres) 0.1 mg PRN Q6HRS PRN PO SBP>160 OR DBP>90; Start at 14:15 Albuterol/ Ipratropium (Duoneb) 3 ml Q4HRS NEB Last administered on 05/20/18 06:57; Start 05/15/18 at 16:00 Guaifenesin (Robitussin) 200 mg PRN Q4HRS PRN PO COUGH, 2nd CHOICE Last administered on 05/19/18 22:12; Start 05/15/18 at 14:15 Lorazepam (Ativan) 0.5 mg PRN Q4HRS PRN PO ANXIETY / AGITATION Last administered on 05/16/18 23:29; Start 05/15/18 at 14:15; Stop 05/19/18 at 11:14; Status DC Enoxaparin Sodium (Lovenox 60mg Syringe) 60 mg Q12HR SQ ; Start 05/15/18 at 21:00 ; Status Cancel Aspirin (Jacquelin Aspirin) 162.5 mg DAILY PO Last administered on 05/20/18 08:52 ; Start 05/15/18 at 15:30 Atorvastatin Calcium (Lipitor) 20 mg QHS PO Last administered on 05/19/18 22: 16; Start 05/15/18 at 21:00 Bupropion HCl (Wellbutrin Sr) 150 mg BID PO Last administered on 05/18/18 08: 07; Start 05/15/18 at 21:00; Stop 05/18/18 at 18:14; Status DC Vitamin D (Vitamin D3) 2,000 unit DAILY PO Last administered on 05/20/18 08:52 ; Start 05/15/18 at 15:30 Furosemide (Lasix) 40 mg BID94 PO Last administered on 05/15/18 17:33; Start at 16:00; Stop 05/16/18 at 10:55; Status DC Gabapentin (Neurontin) 200 mg BIDWBKFT/AVE PO Last administered on 05/18/18 12 :44; Start 05/16/18 at 08:00; Stop 05/18/18 at 16:18; Status DC Gabapentin (Neurontin) 300 mg HS PO Last administered on 05/17/18 22:07; Start 05/15/18 at 21:00; Stop 05/19/18 at 11:14; Status DC Insulin Glargine (Lantus) 45 units QHS SQ Last administered on 05/18/18 21:31 ; Start 05/15/18 at 21:00 Lisinopril (Prinivil) 40 mg DAILY PO Last administered on 05/15/18 17:37; Start 05/15/18 at 15:30; Stop 05/16/18 at 10:55; Status DC Nystatin (Nystop) 15 ritu DAILY TP Last administered on 05/20/18 08:53; Start 05/16/18 at 09:00 Oxycodone HCl (Roxicodone) 10 mg PRN Q4HRS PRN PO MODERATE TO SEVERE PAIN Last administered on 05/20/18 08:09; Start 05/15/18 at 14:15 Pantoprazole Sodium (Protonix) 40 mg DAILYAC PO Last administered on 05/20/18 05:44; Start 05/15/18 at 15:30 Senna/Docusate Sodium (Senna Plus) 1 tab BID PO Last administered on 05/20/18 08:52; Start 05/15/18 at 21:00 Carvedilol (Coreg) 25 mg BIDWMEALS PO Last administered on 05/20/18 08:10; Start 05/15/18 at 17:00 Diphenhydramine HCl (Benadryl) 25 mg PRN Q6HRS PRN PO ALLERGIES; Start 05/15/18 at 14:30; Stop 05/18/18 at 18:14; Status DC Fluticasone Propionate (Flonase) 2 spray DAILY NS Last administered on 08:53; Start 05/16/18 at 09:00 Non-Formulary Medication (Glucosamine Hcl/ Chondr [place] A Na ([facility] Glucosamine- Chondr Tablet)) 2 each DAILY PO ; Start 05/16/18 at 09:00; Status UNV Hydralazine HCl (Apresoline) 50 mg TID PO Last administered on 05/20/18 08:57 ; Start 05/15/18 at 15:30 Insulin Human Lispro (HumaLOG) 30 units TIDWMEALS SQ Last administered on 08:20; Start 05/15/18 at 17:00 Lactobacillus Rhamnosus (Culturelle) 1 cap BID PO Last administered on 08:52; Start 05/15/18 at 21:00 Meloxicam (Mobic) 7.5 mg DAILY PO Last administered on 05/18/18 08:05; Start 05/15/18 at 15:30; Stop 05/18/18 at 16:18; Status DC Zinc Oxide (Zinc Oxide 20% Topical) 1 ritu BID TP Last administered on 08:51; Start 05/15/18 at 21:00 Ondansetron HCl (Zofran) 4 mg PRN Q8HRS PRN IV NAUSEA/VOMITING; Start 05/15/18 at 14:30; Stop 05/16/18 at 14:29; Status DC Acetaminophen (Tylenol) 650 mg PRN Q4HRS PRN PO FEVER; Start 05/15/18 at 14:30; Stop 05/16/18 at 14:29; Status DC Morphine Sulfate (Morphine Sulfate) 2 mg PRN Q2HR PRN IV PAIN Last administered on 05/16/18 08:48; Start 05/15/18 at 15:45 Heparin Sodium (Porcine) (Heparin Sodium) 5,000 unit Q8HRS SQ Last administered on 3/13/19at 05:46; Start 05/15/18 at 22:00 Methylprednisolone Acetate (DEPO-Medrol 80MG VIAL) 80 mg 1X ONCE INJ Last administered on 05/17/18at 08:49; Start 05/17/18 at 08:15; Stop 05/17/18 at 08:16 ; Status DC Lidocaine HCl (Xylocaine-Mpf 1% 2ml Vial) 2 ml 1X ONCE INJ Last administered on 05/17/18at 08:50; Start 05/17/18 at 08:00; Stop 05/17/18 at 08:01; Status DC Budesonide (Pulmicort) 0.5 mg RTBID NEB Last administered on 05/20/18at 06:58; Start 05/17/18 at 20:00 Albuterol Sulfate (Ventolin Neb Soln) 2.5 mg PRN Q4HRS PRN NEB SHORTNESS OF BREATH; Start 05/17/18 at 08:30 Guaifenesin (Robitussin Dm) 10 ml PRN Q6HRS PRN PO COUGH, 1st CHOICE Last administered on 05/18/18at 21:24; Start 05/17/18 at 08:30 Sodium Chloride 1,000 ml @ 75 mls/hr [id number] IV Last administered on at 16:08; Start 05/18/18 at 00:30; Stop 05/19/18 at 11:14; Status DC Levofloxacin/ Dextrose 50 ml @ 50 mls/hr Q24H IV Last administered on at 00:45; Start 05/18/18 at 00:30; Stop 05/18/18 at 02:00; Status DC Vancomycin HCl (Vanco Per Pharmacy) 1 each PRN DAILY PRN MC SEE COMMENTS Last administered on 05/19/18at 14:51; Start 05/18/18 at 00:30 Vancomycin HCl 2 gm/Sodium Chloride 500 ml @ 250 mls/hr 1X ONCE IV Last administered on 05/18/18at 02:15; Start 05/18/18 at 01:00; Stop 05/18/18 at 02:59 ; Status DC Levofloxacin/ Dextrose 50 ml @ 50 mls/hr Q24H IV ; Start 05/18/18 at 22:00; Stop 05/18/18 at 22:00; Status DC Insulin Human Lispro (HumaLOG) 0-7 UNITS TIDWMEALS SQ Last administered on 05/19 13:57; Start 05/18/18 at 09:30 Dextrose (Dextrose 50%-Water Syringe) 12.5 gm PRN Q15MIN PRN IV SEE COMMENTS Last administered on 05/19/18 16:35; Start 05/18/18 at 09:30 Levofloxacin/ Dextrose 100 ml @ 100 mls/hr Q24H IV Last administered on 22:11; Start 05/18/18 at 21:00 Vancomycin HCl 2 gm/Sodium Chloride 500 ml @ 250 mls/hr Q18H IV Last administered on 05/20/18 08:10; Start 05/18/18 at 20:00 Vancomycin HCl (Vancomycin Trough Level) 1 each 1X ONCE MC Last administered on 05/19/18 13:30; Start 05/19/18 at 13:30; Stop 05/19/18 at 13:31; Status DC Multi-Ingred Cream/Lotion/Oil/ Oint (Hydrocerin Cream) 1 ritu QID TP Last administered on 05/20/18 08:53; Start 05/18/18 at 12:00 Polyethylene Glycol (miraLAX PACKET) 17 gm 1X ONCE PO Last administered on 12:00; Start 05/18/18 at 12:00; Stop 05/18/18 at 12:01; Status DC Polyethylene Glycol (miraLAX PACKET) 17 gm DAILY PO Last administered on 08:52; Start 05/19/18 at 09:00 Magnesium Hydroxide (Milk Of Magnesia) 2,400 mg 1X ONCE PO Last administered on 05/18/18 12:44; Start 05/18/18 at 12:00; Stop 05/18/18 at 12:01; Status DC Magnesium Hydroxide (Milk Of Magnesia) 2,400 mg PRN DAILY PRN PO CONSTIPATION; Start 05/18/18 at 11:30 Bisacodyl (Dulcolax Supp) 10 mg PRN DAILY PRN [place] CONSTIPATION; Start 05/18/18 at 11:30 Multivitamins (Thera M Plus) 1 tab DAILY PO Last administered on 05/20/18 08: 52; Start 05/18/18 at 14:00 Diclofenac Sodium (Voltaren) 1 ritu BID TP Last administered on 05/20/18at 08:52 ; Start 05/18/18 at 21:00 Methylprednisolone Acetate (DEPO-Medrol 40MG VIAL) 40 mg 1X ONCE IM ; Start 01/26 at 16:15; Stop 05/18/18 at 16:20; Status DC Bupivacaine HCl (Sensorcaine-Mpf 0.25%) 10 ml 1X ONCE IJ ; Start 05/18/18 at 16 :15; Stop 05/18/18 at 16:20; Status DC Polysaccharide Iron Complex (Niferex 150) 150 mg BID PO Last administered on at 08:52; Start 05/18/18 at 21:00 Throat Lozenges (Cepacol Sore Throat Lozenge) 1 saran PRN Q2HRS PRN PO SORE THROAT Last administered on 05/20/18at 02:33; Start 05/19/18 at 16:45 Active Scripts Active Meloxicam 7.5 Mg Tablet 7.5 Mg PO DAILY Oxycodone Hcl Immed.release (Oxycodone Hcl) 5 Mg Tablet 10 Mg PO PRN Q4HRS PRN Reported Novolog Flexpen (Insulin Aspart) 100 Unit/1 Ml Insuln.pen 30 SQ TIDWMEALS Aspirin 325 Mg Tablet 0.5 Tab PO DAILY Senna-S Tablet (Sennosides/Docusate Sodium) 1 Each Tablet 1 Each PO BID Nyamyc (Nystatin) 15 Gm Powder 15 Gm TP DAILY Culturelle (Lactobacillus Rhamnosus Gg) 1 Each Capsule 1 Each PO BIDWMEALS Lantus Solostar (Insulin Glargine,Hum.rec.anlog) 100 Unit/1 Ml Insuln.pen 45 Unit SQ QHS Hydralazine Hcl 25 Mg Tablet 2 Tab PO TID [facility] Glucosamine-Chondr Tablet (Glucosamine Hcl/Chondr [place] A Na) 1 Each Tablet 2 Each PO DAILY Gabapentin (Gabapentin) 300 Mg Capsule 300 Mg PO HS Gabapentin (Gabapentin) 100 Mg Capsule 200 Mg PO BIDWBKFT/AVE Flonase Allergy Relief (Fluticasone Propionate) 9.9 Ml [place].susp 2 Sprays NS DAILY Elta Seal Moisture Barrier (Zinc Oxide) 114 Gm Cream..g. 114 Gm TP BID Diphenhydramine Hcl 50 Mg Capsule 25 Mg PO Q6HRS PRN Vitamin D3 (Cholecalciferol (Vitamin D3)) 1,000 Unit Tablet 2,000 Unit PO DAILY Atorvastatin Calcium 20 Mg Tablet DAILY Venlafaxine Hcl Er (Venlafaxine Hcl) 150 Mg Cap.er.24h DAILY Furosemide 20 Mg Tablet 40 Mg BID Lisinopril 40 Mg Tablet 40 DAILY Carvedilol 25 Mg Tablet 25 BID Pantoprazole Sodium 40 Mg Tablet.dr DAILY Bupropion Hcl Sr (Bupropion Hcl) 150 Mg Tablet.er 150 BID Vitals/I & O Vital Sign - Last 24 Hours 05/19/18 05/19/18 05/19/18 05/19/18 11:00 11:06 13:46 15:00 Temp 97.6 97.9 97.6 97.9 Pulse 61 61 77 Resp 20 20 B/P (MAP) 150/58 (88) 150/58 143/55 (84) Pulse Ox 98 96 96 O2 Delivery Room Air Room Air Room Air 05/19/18 05/19/18 05/19/18 05/19/18 15:12 16:49 19:00 20:00 Temp 98.5 98.5 Pulse 77 78 Resp 18 B/P (MAP) 143/55 162/65 (97) Pulse Ox 96 O2 Delivery Room Air Room Air Room Air 05/19/18 05/19/18 05/19/18 05/19/18 20:13 20:13 22:21 23:00 Temp 98.8 98.8 Pulse 80 Resp 18 B/P (MAP) 125/62 125/62 (83) Pulse Ox 95 O2 Delivery Room Air Room Air Room Air 05/19/18 05/20/18 05/20/18 05/20/18 23:35 02:33 03:00 06:58 Temp 98.5 98.5 Pulse 75 Resp 18 18 B/P (MAP) 154/54 (87) Pulse Ox 97 98 O2 Delivery Room Air Room Air Room Air Room Air 05/20/18 05/20/18 05/20/18 05/20/18 07:00 07:30 08:09 08:10 Temp 97.9 97.9 Pulse 75 75 Resp 18 16 B/P (MAP) 133/64 (87) 133/64 Pulse Ox 99 O2 Delivery Room Air Room Air Room Air 05/20/18 05/20/18 08:57 09:09 Pulse 78 Resp 18 B/P (MAP) 133/56 O2 Delivery Room Air Intake and Output 05/19/18 05/19/18 05/20/18 14:59 22:59 06:59 Output Total 550 ml 1450 ml Balance -550 ml -1450 ml FAUSTO METCALF MD May 20, 2018 10:05
[2018-05-20 11:11] VITALS: BP 154/66
--- NOTE | 2018-05-20 11:24 | PDOC ---
Renal-Progress Notes Subjective Notes Notes NOTHING NEW History of Present Illness Hx of present illness STABLE Vitals Vitals Vital Signs Date Time Temp Pulse Resp B/P (MAP) Pulse Ox O2 Delivery O2 Flow Rate FiO2 05/20/18 11:11 98.4 69 20 154/66 (95) 95 Room Air 98.4 Weight Weight [ ] I.O. Intake and Output Intake and Output 05/20/18 07:00 Output Total 2000 ml Balance -2000 ml Output Urine Total 2000 ml Labs Labs Laboratory Tests Test 05/19/18 11:35 05/19/18 13:15 05/19/18 16:36 05/19/18 16:49 Glucose (Fingerstick) 195 mg/dL (70-99) 49 mg/dL (70-99) 81 mg/dL (70-99) Vancomycin Level Trough 16.7 mcg/mL (10.0-20.0) Vancomycin Last Dose Date Unknown Vancomycin Last Dose Time Unknown Test 05/19/18 21:12 05/20/18 03:50 05/20/18 07:26 Glucose (Fingerstick) 107 mg/dL (70-99) 117 mg/dL (70-99) Sodium Level 143 mmol/L (136-145) Potassium Level 4.7 mmol/L (3.5-5.1) Chloride Level 107 mmol/L (98-107) Carbon Dioxide Level 27 mmol/L (21-32) Anion Gap 9 (6-14) Blood Urea Nitrogen 45 mg/dL (8-26) Creatinine 1.5 mg/dL (0.7-1.3) Estimated GFR (Cockcroft-Gault) 46.3 Glucose Level 97 mg/dL (70-99) Calcium Level 9.2 mg/dL (8.5-10.1) Review of Systems Constitutional: yes: alert, oriented Ears/Nose/Throat: Yes: no symptom reported Eyes: Yes: no symptom reported Pulmonary: Yes no symptom reported Cardiovascular: Yes no symptom reported Gastrointestional: Yes: no symptom reported Genitourinary: Yes: no symptom reported Musculoskeletal: Yes: no symptom reported Skin: Yes no symptom reported Psychiatric/Neurological: Yes: no symptom reported Endocrine: Yes: no symptom reported Physical Exam General Appearance: no apparent distress Skin: warm Respiratory: bilateral CTA Heart: S1S2 Abdomen: soft, bowel sounds present Genitourinary: bladder flat Extremities: pulses present Neurology: alert Assessment Assessment IMP CKD STAGE 3-CR AT HIS USUAL BASELINE MORBID OBESITY DM II HTN KNEE OA PLAN PER ORTHO ENC CONTROL OF DM AND HTN HAVE ASKED PT TO F/U WITH US AT D/C WILL NEED TO HAVE 24 HR - CAN BE DONE OPO WILL BENEFIT FROM AN JOHN-I ALL CAN BE DONE OP SNU PENDING DENG ARVIZU MD May 20, 2018 11:24
--- NOTE | 2018-05-20 12:26 | PDOC ---
PROGRESS NOTES Chief Complaint Chief Complaint Right big toe wound-looks not infected status post IND All toes amputated left foot Severe bilateral knee osteoarthritis Inability to care for selfl poor physical endurance and mobility and self care limitations , his felt that she could not take care of him at home Morbid obesity with a BMI of 56 Impaired mobility // severe osteoarthritis Leukocytosis which may be reactive but in light of his multiple skin lesions Hyponatremia Normocytic anemia of chronic inflammation Hypertension, controlled Dyslipidemia History of diabetes mellitus type 2 insulin requiring Obesity hypovent syndrome Consolidating infiltrate left lower lobe suggesting pneumonia although atelectasis is also possible. ON CT CHEST History of Present Illness History of Present Illness JASEN cpap with all sleep needed planning SNU Social work involved superficial infection both knees, lower legs WBC mildly elevated with no fevers, ESR 130 cont iv vancomycin and Levaquin Plan: continue IV vancomycin Levaquin SNU on discharge DC gabapentin- Discussed with RN Vitals Vitals Vital Signs Date Time Temp Pulse Resp B/P (MAP) Pulse Ox O2 Delivery O2 Flow Rate FiO2 05/20/18 11:27 Room Air 05/20/18 11:11 98.4 69 20 154/66 (95) 95 98.4 Physical Exam General: Alert, Oriented X3, Cooperative, No acute distress Heart: Regular rate Lungs: Clear Abdomen: Normal bowel sounds, Soft, No tenderness Extremities: No clubbing Skin: Other (Gluteal bruising) Labs LABS CT chest without contrast. HISTORY: Increasing rhonchi, mass CT scan of the chest was done without contrast. Thyroid is homogeneous. There is extensive fat in the mediastinum. The aorta is tortuous. There is no mediastinal mass. There is no left hilar mass. There is a consolidating infiltrate in the left lower lobe possibly an acute pneumonia although atelectasis is also possible. There is a nodular density in the right lung poorly seen on the chest x-ray. Focal infiltrate is possible. Follow-up would be of benefit to exclude an underlying nodule. IMPRESSION: 1. Tortuous aorta and prominent mediastinal fat. 2. Consolidating infiltrate left lower lobe suggesting pneumonia although atelectasis is also possible. 3. Small focal irregular infiltrate or nodule on the right follow-up would be of benefit. Laboratory Tests Test 05/19/18 13:15 05/19/18 16:36 05/19/18 16:49 05/19/18 21:12 Vancomycin Level Trough 16.7 mcg/mL (10.0-20.0) Vancomycin Last Dose Date Unknown Vancomycin Last Dose Time Unknown Glucose (Fingerstick) 49 mg/dL (70-99) 81 mg/dL (70-99) 107 mg/dL (70-99) Test 05/20/18 03:50 05/20/18 07:26 05/20/18 11:36 Sodium Level 143 mmol/L (136-145) Potassium Level 4.7 mmol/L (3.5-5.1) Chloride Level 107 mmol/L (98-107) Carbon Dioxide Level 27 mmol/L (21-32) Anion Gap 9 (6-14) Blood Urea Nitrogen 45 mg/dL (8-26) Creatinine 1.5 mg/dL (0.7-1.3) Estimated GFR (Cockcroft-Gault) 46.3 Glucose Level 97 mg/dL (70-99) Calcium Level 9.2 mg/dL (8.5-10.1) Glucose (Fingerstick) 117 mg/dL (70-99) 95 mg/dL (70-99) Assessment and Plan Assessmemt and Plan Problems Medical Problems: (1) Chronic knee pain Status: Acute Comment Review of Relevant I have reviewed the following items minnie (where applicable) has been applied. Labs Laboratory Tests Test 05/18/18 16:05 05/18/18 16:20 05/18/18 17:55 05/18/18 20:13 O2 Saturation 94 % (92-99) Arterial Blood pH 7.39 (7.35-7.45) Arterial Blood pCO2 at Patient Temp 42 mmHg (35-46) Arterial Blood pO2 at Patient Temp 74 mmHg (65-108) Arterial Blood HCO3 25 mmol/L (21-28) Arterial Blood Base Excess -0 mmol/L (-3-3) FiO2 21 Glucose (Fingerstick) 192 mg/dL (70-99) 186 mg/dL (70-99) Lactic Acid Level 1.6 mmol/L (0.4-2.0) Test 05/19/18 03:00 05/19/18 09:07 05/19/18 11:35 05/19/18 13:15 Erythrocyte Sedimentation Rate > 130 (0-15) Creatinine 1.7 mg/dL (0.7-1.3) Estimated GFR (Cockcroft-Gault) 40.0 Glucose (Fingerstick) 216 mg/dL (70-99) 195 mg/dL (70-99) Vancomycin Level Trough 16.7 mcg/mL (10.0-20.0) Vancomycin Last Dose Date Unknown Vancomycin Last Dose Time Unknown Test 05/19/18 16:36 05/19/18 16:49 05/19/18 21:12 05/20/18 03:50 Glucose (Fingerstick) 49 mg/dL (70-99) 81 mg/dL (70-99) 107 mg/dL (70-99) Sodium Level 143 mmol/L (136-145) Potassium Level 4.7 mmol/L (3.5-5.1) Chloride Level 107 mmol/L (98-107) Carbon Dioxide Level 27 mmol/L (21-32) Anion Gap 9 (6-14) Blood Urea Nitrogen 45 mg/dL (8-26) Creatinine 1.5 mg/dL (0.7-1.3) Estimated GFR (Cockcroft-Gault) 46.3 Glucose Level 97 mg/dL (70-99) Calcium Level 9.2 mg/dL (8.5-10.1) Test 05/20/18 07:26 05/20/18 11:36 Glucose (Fingerstick) 117 mg/dL (70-99) 95 mg/dL (70-99) Laboratory Tests Test 05/19/18 13:15 05/19/18 16:36 05/19/18 16:49 05/19/18 21:12 Vancomycin Level Trough 16.7 mcg/mL (10.0-20.0) Vancomycin Last Dose Date Unknown Vancomycin Last Dose Time Unknown Glucose (Fingerstick) 49 mg/dL (70-99) 81 mg/dL (70-99) 107 mg/dL (70-99) Test 05/20/18 03:50 05/20/18 07:26 05/20/18 11:36 Sodium Level 143 mmol/L (136-145) Potassium Level 4.7 mmol/L (3.5-5.1) Chloride Level 107 mmol/L (98-107) Carbon Dioxide Level 27 mmol/L (21-32) Anion Gap 9 (6-14) Blood Urea Nitrogen 45 mg/dL (8-26) Creatinine 1.5 mg/dL (0.7-1.3) Estimated GFR (Cockcroft-Gault) 46.3 Glucose Level 97 mg/dL (70-99) Calcium Level 9.2 mg/dL (8.5-10.1) Glucose (Fingerstick) 117 mg/dL (70-99) 95 mg/dL (70-99) Medications Current Medications Ibuprofen (Motrin) 400 mg 1X ONCE PO Last administered on 05/15/18 10:58; Start 05/15/18 at 10:30; Stop 05/15/18 at 10:31; Status DC Ondansetron HCl (Zofran) 4 mg PRN Q4HRS PRN IV NAUSEA/VOMITING; Start 05/15/18 at 14:15 Zolpidem Tartrate (Ambien) 5 mg PRN QHS PRN PO INSOMNIA Last administered on 23:29; Start 05/15/18 at 14:15; Stop 05/17/18 at 23:35; Status DC Acetaminophen (Tylenol) 650 mg PRN Q4HRS PRN PO TEMP OVER 100.4F OR MILD PAIN Last administered on 05/16/18 23:29; Start 05/15/18 at 14:15 Clonidine HCl (Catapres) 0.1 mg PRN Q6HRS PRN PO SBP>160 OR DBP>90; Start at 14:15 Albuterol/ Ipratropium (Duoneb) 3 ml Q4HRS NEB Last administered on 05/20/18 11:27; Start 05/15/18 at 16:00 Guaifenesin (Robitussin) 200 mg PRN Q4HRS PRN PO COUGH, 2nd CHOICE Last administered on 05/19/18 22:12; Start 05/15/18 at 14:15 Lorazepam (Ativan) 0.5 mg PRN Q4HRS PRN PO ANXIETY / AGITATION Last administered on 05/16/18 23:29; Start 05/15/18 at 14:15; Stop 05/19/18 at 11:14; Status DC Enoxaparin Sodium (Lovenox 60mg Syringe) 60 mg Q12HR SQ ; Start 05/15/18 at 21:00 ; Status Cancel Aspirin (Jacquelin Aspirin) 162.5 mg DAILY PO Last administered on 05/20/18 08:52 ; Start 05/15/18 at 15:30 Atorvastatin Calcium (Lipitor) 20 mg QHS PO Last administered on 05/19/18 22: 16; Start 05/15/18 at 21:00 Bupropion HCl (Wellbutrin Sr) 150 mg BID PO Last administered on 05/18/18 08: 07; Start 05/15/18 at 21:00; Stop 05/18/18 at 18:14; Status DC Vitamin D (Vitamin D3) 2,000 unit DAILY PO Last administered on 05/20/18 08:52 ; Start 05/15/18 at 15:30 Furosemide (Lasix) 40 mg BID94 PO Last administered on 05/15/18 17:33; Start at 16:00; Stop 05/16/18 at 10:55; Status DC Gabapentin (Neurontin) 200 mg BIDWBKFT/AVE PO Last administered on 05/18/18 12 :44; Start 05/16/18 at 08:00; Stop 05/18/18 at 16:18; Status DC Gabapentin (Neurontin) 300 mg HS PO Last administered on 05/17/18 22:07; Start 05/15/18 at 21:00; Stop 05/19/18 at 11:14; Status DC Insulin Glargine (Lantus) 45 units QHS SQ Last administered on 05/18/18 21:31 ; Start 05/15/18 at 21:00 Lisinopril (Prinivil) 40 mg DAILY PO Last administered on 05/15/18 17:37; Start 05/15/18 at 15:30; Stop 05/16/18 at 10:55; Status DC Nystatin (Nystop) 15 ritu DAILY TP Last administered on 05/20/18 08:53; Start 05/16/18 at 09:00 Oxycodone HCl (Roxicodone) 10 mg PRN Q4HRS PRN PO MODERATE TO SEVERE PAIN Last administered on 05/20/18 08:09; Start 05/15/18 at 14:15 Pantoprazole Sodium (Protonix) 40 mg DAILYAC PO Last administered on 05/20/18 05:44; Start 05/15/18 at 15:30 Senna/Docusate Sodium (Senna Plus) 1 tab BID PO Last administered on 05/20/18 08:52; Start 05/15/18 at 21:00 Carvedilol (Coreg) 25 mg BIDWMEALS PO Last administered on 05/20/18 08:10; Start 05/15/18 at 17:00 Diphenhydramine HCl (Benadryl) 25 mg PRN Q6HRS PRN PO ALLERGIES; Start 05/15/18 at 14:30; Stop 05/18/18 at 18:14; Status DC Fluticasone Propionate (Flonase) 2 spray DAILY NS Last administered on 08:53; Start 05/16/18 at 09:00 Non-Formulary Medication (Glucosamine Hcl/ Chondr [place] A Na ([facility] Glucosamine- Chondr Tablet)) 2 each DAILY PO ; Start 05/16/18 at 09:00; Status UNV Hydralazine HCl (Apresoline) 50 mg TID PO Last administered on 05/20/18 08:57 ; Start 05/15/18 at 15:30 Insulin Human Lispro (HumaLOG) 30 units TIDWMEALS SQ Last administered on 12:08; Start 05/15/18 at 17:00 Lactobacillus Rhamnosus (Culturelle) 1 cap BID PO Last administered on 08:52; Start 05/15/18 at 21:00 Meloxicam (Mobic) 7.5 mg DAILY PO Last administered on 05/18/18 08:05; Start 05/15/18 at 15:30; Stop 05/18/18 at 16:18; Status DC Zinc Oxide (Zinc Oxide 20% Topical) 1 ritu BID TP Last administered on 08:51; Start 05/15/18 at 21:00 Ondansetron HCl (Zofran) 4 mg PRN Q8HRS PRN IV NAUSEA/VOMITING; Start 05/15/18 at 14:30; Stop 05/16/18 at 14:29; Status DC Acetaminophen (Tylenol) 650 mg PRN Q4HRS PRN PO FEVER; Start 05/15/18 at 14:30; Stop 05/16/18 at 14:29; Status DC Morphine Sulfate (Morphine Sulfate) 2 mg PRN Q2HR PRN IV PAIN Last administered on 05/16/18 08:48; Start 05/15/18 at 15:45 Heparin Sodium (Porcine) (Heparin Sodium) 5,000 unit Q8HRS SQ Last administered on 05/20/18 05:46; Start 05/15/18 at 22:00 Methylprednisolone Acetate (DEPO-Medrol 80MG VIAL) 80 mg 1X ONCE INJ Last administered on 05/17/18 08:49; Start 05/17/18 at 08:15; Stop 05/17/18 at 08:16 ; Status DC Lidocaine HCl (Xylocaine-Mpf 1% 2ml Vial) 2 ml 1X ONCE INJ Last administered on 05/17/18 08:50; Start 05/17/18 at 08:00; Stop 05/17/18 at 08:01; Status DC Budesonide (Pulmicort) 0.5 mg RTBID NEB Last administered on 05/20/18 06:58; Start 05/17/18 at 20:00 Albuterol Sulfate (Ventolin Neb Soln) 2.5 mg PRN Q4HRS PRN NEB SHORTNESS OF BREATH; Start 05/17/18 at 08:30 Guaifenesin (Robitussin Dm) 10 ml PRN Q6HRS PRN PO COUGH, 1st CHOICE Last administered on 05/18/18 21:24; Start 05/17/18 at 08:30 Sodium Chloride 1,000 ml @ 75 mls/hr [id number] IV Last administered on at 16:08; Start 05/18/18 at 00:30; Stop 05/19/18 at 11:14; Status DC Levofloxacin/ Dextrose 50 ml @ 50 mls/hr Q24H IV Last administered on at 00:45; Start 05/18/18 at 00:30; Stop 05/18/18 at 02:00; Status DC Vancomycin HCl (Vanco Per Pharmacy) 1 each PRN DAILY PRN MC SEE COMMENTS Last administered on 05/19/18at 14:51; Start 05/18/18 at 00:30 Vancomycin HCl 2 gm/Sodium Chloride 500 ml @ 250 mls/hr 1X ONCE IV Last administered on 05/18/18at 02:15; Start 05/18/18 at 01:00; Stop 05/18/18 at 02:59 ; Status DC Levofloxacin/ Dextrose 50 ml @ 50 mls/hr Q24H IV ; Start 05/18/18 at 22:00; Stop 05/18/18 at 22:00; Status DC Insulin Human Lispro (HumaLOG) 0-7 UNITS TIDWMEALS SQ Last administered on 05/19at 13:57; Start 05/18/18 at 09:30 Dextrose (Dextrose 50%-Water Syringe) 12.5 gm PRN Q15MIN PRN IV SEE COMMENTS Last administered on 05/19/18at 16:35; Start 05/18/18 at 09:30 Levofloxacin/ Dextrose 100 ml @ 100 mls/hr Q24H IV Last administered on at 22:11; Start 05/18/18 at 21:00 Vancomycin HCl 2 gm/Sodium Chloride 500 ml @ 250 mls/hr Q18H IV Last administered on 05/20/18 08:10; Start 05/18/18 at 20:00 Vancomycin HCl (Vancomycin Trough Level) 1 each 1X ONCE MC Last administered on 05/19/18at 13:30; Start 05/19/18 at 13:30; Stop 05/19/18 at 13:31; Status DC Multi-Ingred Cream/Lotion/Oil/ Oint (Hydrocerin Cream) 1 ritu QID TP Last administered on 05/20/18at 08:53; Start 05/18/18 at 12:00 Polyethylene Glycol (miraLAX PACKET) 17 gm 1X ONCE PO Last administered on 01/26at 12:00; Start 05/18/18 at 12:00; Stop 05/18/18 at 12:01; Status DC Polyethylene Glycol (miraLAX PACKET) 17 gm DAILY PO Last administered on at 08:52; Start 05/19/18 at 09:00 Magnesium Hydroxide (Milk Of Magnesia) 2,400 mg 1X ONCE PO Last administered on 05/18/18 12:44; Start 05/18/18 at 12:00; Stop 05/18/18 at 12:01; Status DC Magnesium Hydroxide (Milk Of Magnesia) 2,400 mg PRN DAILY PRN PO CONSTIPATION; Start 05/18/18 at 11:30 Bisacodyl (Dulcolax Supp) 10 mg PRN DAILY PRN MI CONSTIPATION; Start 05/18/18 at 11:30 Multivitamins (Thera M Plus) 1 tab DAILY PO Last administered on 05/20/18 08: 52; Start 05/18/18 at 14:00 Diclofenac Sodium (Voltaren) 1 ritu BID TP Last administered on 05/20/18 08:52 ; Start 05/18/18 at 21:00 Methylprednisolone Acetate (DEPO-Medrol 40MG VIAL) 40 mg 1X ONCE IM ; Start 01/26 at 16:15; Stop 05/18/18 at 16:20; Status DC Bupivacaine HCl (Sensorcaine-Mpf 0.25%) 10 ml 1X ONCE IJ ; Start 05/18/18 at 16 :15; Stop 05/18/18 at 16:20; Status DC Polysaccharide Iron Complex (Niferex 150) 150 mg BID PO Last administered on 08:52; Start 05/18/18 at 21:00 Throat Lozenges (Cepacol Sore Throat Lozenge) 1 saran PRN Q2HRS PRN PO SORE THROAT Last administered on 05/20/18at 02:33; Start 05/19/18 at 16:45 Active Scripts Active Meloxicam 7.5 Mg Tablet 7.5 Mg PO DAILY Oxycodone Hcl Immed.release (Oxycodone Hcl) 5 Mg Tablet 10 Mg PO PRN Q4HRS PRN Reported Novolog Flexpen (Insulin Aspart) 100 Unit/1 Ml Insuln.pen 30 SQ TIDWMEALS Aspirin 325 Mg Tablet 0.5 Tab PO DAILY Senna-S Tablet (Sennosides/Docusate Sodium) 1 Each Tablet 1 Each PO BID Nyamyc (Nystatin) 15 Gm Powder 15 Gm TP DAILY Culturelle (Lactobacillus Rhamnosus Gg) 1 Each Capsule 1 Each PO BIDWMEALS Lantus Solostar (Insulin Glargine,Hum.rec.anlog) 100 Unit/1 Ml Insuln.pen 45 Unit SQ QHS Hydralazine Hcl 25 Mg Tablet 2 Tab PO TID [facility] Glucosamine-Chondr Tablet (Glucosamine Hcl/Chondr [place] A Na) 1 Each Tablet 2 Each PO DAILY Gabapentin (Gabapentin) 300 Mg Capsule 300 Mg PO HS Gabapentin (Gabapentin) 100 Mg Capsule 200 Mg PO BIDWBKFT/AVE Flonase Allergy Relief (Fluticasone Propionate) 9.9 Ml [place].susp 2 Sprays NS DAILY Elta Seal Moisture Barrier (Zinc Oxide) 114 Gm Cream..g. 114 Gm TP BID Diphenhydramine Hcl 50 Mg Capsule 25 Mg PO Q6HRS PRN Vitamin D3 (Cholecalciferol (Vitamin D3)) 1,000 Unit Tablet 2,000 Unit PO DAILY Atorvastatin Calcium 20 Mg Tablet DAILY Venlafaxine Hcl Er (Venlafaxine Hcl) 150 Mg Cap.er.24h DAILY Furosemide 20 Mg Tablet 40 Mg BID Lisinopril 40 Mg Tablet 40 DAILY Carvedilol 25 Mg Tablet 25 BID Pantoprazole Sodium 40 Mg Tablet.dr DAILY Bupropion Hcl Sr (Bupropion Hcl) 150 Mg Tablet.er 150 BID Vitals/I & O Vital Sign - Last 24 Hours 05/19/18 05/19/18 05/19/18 05/19/18 13:46 15:00 15:12 16:49 Temp 97.9 97.9 Pulse 61 77 77 Resp 20 B/P (MAP) 150/58 143/55 (84) 143/55 Pulse Ox 96 O2 Delivery Room Air Room Air 05/19/18 05/19/18 05/19/18 05/19/18 19:00 20:00 20:13 20:13 Temp 98.5 98.5 Pulse 78 Resp 18 B/P (MAP) 162/65 (97) Pulse Ox 96 O2 Delivery Room Air Room Air Room Air Room Air 05/19/18 05/19/18 05/19/18 05/20/18 22:21 23:00 23:35 02:33 Temp 98.8 98.8 Pulse 80 Resp 18 18 B/P (MAP) 125/62 125/62 (83) Pulse Ox 95 O2 Delivery Room Air Room Air Room Air 05/20/18 05/20/18 05/20/18 05/20/18 03:00 06:58 07:00 07:30 Temp 98.5 97.9 98.5 97.9 Pulse 75 75 Resp 18 18 B/P (MAP) 154/54 (87) 133/64 (87) Pulse Ox 97 98 99 O2 Delivery Room Air Room Air Room Air Room Air 05/20/18 05/20/18 05/20/18 05/20/18 08:09 08:10 08:57 09:09 Pulse 75 78 Resp 16 18 B/P (MAP) 133/64 133/56 O2 Delivery Room Air Room Air 05/20/18 05/20/18 11:11 11:27 Temp 98.4 98.4 Pulse 69 Resp 20 B/P (MAP) 154/66 (95) Pulse Ox 95 O2 Delivery Room Air Room Air Intake and Output 05/19/18 05/19/18 05/20/18 15:00 23:00 07:00 Output Total 1050 ml 950 ml Balance -1050 ml -950 ml AJAY GURROLA MD May 20, 2018 12:26
--- NOTE | 2018-05-20 13:20 | NUR ---
SW awaiting insurance auth. RN notified.
[2018-05-20] MEDS: VANCOMYCIN PER PHARMACY MC PRN (14:05)
[2018-05-20 14:55] VITALS: BP 139/54
[2018-05-20] MEDS: DEXTROSE 50% 25 GM / 50ML DISP.SYRIN. IV PRN (17:26)
[2018-05-20 19:00] VITALS: BP 146/43
[2018-05-20] MEDS: INSULIN GLARGINE 300 UNITS/3 ML INSULN.PEN. SQ SCH (20:35)
[2018-05-20] MEDS: ATORVASTATIN CALCIUM 20 MG TABLET PO SCH (20:35)
[2018-05-20 22:55] VITALS: BP 154/61
[2018-05-21] MEDS: VANCOMYCIN 2 GM in IV NORMAL SALINE 500ML BAG 500 ML IV SCH (02:21)
[2018-05-21] MEDS: IPRATRPIUM/ALBUTEROL 0.5/2.5MG 3 ML NEBU. NEB SCH ×6 (02:25→23:20)
[2018-05-21 03:00] VITALS: BP 146/51
[2018-05-21 05:20] LABS: BASO % 0 % (0-3); EOS # 0.2 x10^3/uL (0.0-0.7); EOS % 2 % (0-3); LYMPH % 8 % (24-48); MEAN CORPUSCULAR HEMOGLOBIN 28 pg (25-35); MEAN CORPUSCULAR HGB CONC 32 g/dL (31-37); MEAN CORPUSCULAR VOLUME 88 fL (79-100); MONO # 1.4 x10^3/uL (0.0-1.1); MONO % 11 % (0-9); NEUT # 10.6 x10^3uL (1.8-7.7); NEUT % 80 % (31-73); PLATELET COUNT 278 x10^3/uL (140-400); RED BLOOD COUNT 3.17 x10^6/uL (4.30-5.70); WHITE BLOOD COUNT 13.3 x10^3/uL (4.0-11.0)
[2018-05-21 05:53] LABS: CALCIUM 8.9 mg/dL (8.5-10.1); CREATININE 1.4 mg/dL (0.7-1.3); GFR 50.1; POTASSIUM 4.4 mmol/L (3.5-5.1)
[2018-05-21] MEDS: oxyCODONE IR 5 MG TABLET PO PRN ×2 (06:26→14:24)
[2018-05-21] MEDS: PANTOPRAZOLE 40 MG TABLET.DR. PO SCH (06:26)
[2018-05-21] MEDS: guaiFENesin ORAL 200 MG/10 ML LIQUID. PO PRN (06:29)
[2018-05-21] MEDS: HEPARIN for SUB-Q USE 5,000 UNIT/ML VIAL. SQ SCH ×3 (06:34→21:58)
[2018-05-21 07:00] VITALS: BP 139/53
[2018-05-21] MEDS: BUDESONIDE 0.5 MG/2 ML NEBU. NEB SCH ×2 (07:11→19:29)
[2018-05-21] MEDS: CARVEDILOL 12.5 MG TABLET. PO SCH ×2 (07:46→16:53)
[2018-05-21] MEDS: INSULIN LISPRO 300 UNITS/3 ML INSULN.PEN. SQ SCH ×6 (07:50→17:00)
[2018-05-21] MEDS: FLUTICASONE 50MCG/NASAL SPRAY 16GM BOTTLE. NS SCH (08:53)
[2018-05-21] MEDS: ZINC OXIDE 20% TOPICAL OINTMENT 28GM TUBE. TP SCH ×2 (08:53→21:46)
[2018-05-21] MEDS: MINERAL OIL/PETROLATUM TOPICAL CREAM 113GM JAR. TP SCH ×4 (08:53→21:46)
[2018-05-21] MEDS: IRON POLYSACCHARIDE COMPLEX 150 MG CAPSULE PO SCH ×2 (08:54→21:44)
[2018-05-21] MEDS: CHOLECALCIFEROL (VITAMIN D3) 1,000 UNIT TABLET PO SCH (08:54)
[2018-05-21] MEDS: POLYETHYLENE GLYCOL 3350 17 GM PACKET. PO SCH (08:54)
[2018-05-21] MEDS: DICLOFENAC SODIUM 1% TOPICAL GEL 100GM TUBE. TP SCH ×2 (08:54→21:45)
[2018-05-21] MEDS: LACTOBACILLUS RHAMNOSUS GG 1 CAPSULE. PO SCH ×2 (08:54→21:43)
[2018-05-21] MEDS: MULTIVITAMIN with MINERAL TABLET. PO SCH (08:55)
[2018-05-21] MEDS: ASPIRIN 325 MG TABLET PO SCH (08:55)
[2018-05-21] MEDS: SENNOSIDES/DOCUSATE 8.6/50MG TABLET. PO SCH ×2 (08:55→21:45)
[2018-05-21] MEDS: NYSTATIN TOPICAL POWDER 15GM BOTTLE. TP SCH (08:55)
--- NOTE | 2018-05-21 09:47 | PDOC ---
Infectious Disease Note Vital Sign Vital Signs Vital Signs Date Time Temp Pulse Resp B/P (MAP) Pulse Ox O2 Delivery O2 Flow Rate FiO2 05/21/18 08:56 75 139/53 05/21/18 08:00 Room Air 05/21/18 07:26 18 05/21/18 07:00 98.1 97 98.1 Labs Lab Laboratory Tests Test 05/20/18 11:36 05/20/18 16:50 05/20/18 17:22 05/20/18 17:38 Glucose (Fingerstick) 95 mg/dL (70-99) 41 mg/dL (70-99) 41 mg/dL (70-99) 133 mg/dL (70-99) Test 05/20/18 20:34 05/21/18 03:55 05/21/18 07:29 Glucose (Fingerstick) 107 mg/dL (70-99) 162 mg/dL (70-99) White Blood Count 13.3 x10^3/uL (4.0-11.0) Red Blood Count 3.17 x10^6/uL (4.30-5.70) Hemoglobin 9.0 g/dL (13.0-17.5) Hematocrit 28.0 % (39.0-53.0) Mean Corpuscular Volume 88 fL (79-100) Mean Corpuscular Hemoglobin 28 pg (25-35) Mean Corpuscular Hemoglobin Concent 32 g/dL (31-37) Red Cell Distribution Width 14.0 % (11.5-14.5) Platelet Count 278 x10^3/uL (140-400) Neutrophils (%) (Auto) 80 % (31-73) Lymphocytes (%) (Auto) 8 % (24-48) Monocytes (%) (Auto) 11 % (0-9) Eosinophils (%) (Auto) 2 % (0-3) Basophils (%) (Auto) 0 % (0-3) Neutrophils # (Auto) 10.6 x10^3uL (1.8-7.7) Lymphocytes # (Auto) 1.0 x10^3/uL (1.0-4.8) Monocytes # (Auto) 1.4 x10^3/uL (0.0-1.1) Eosinophils # (Auto) 0.2 x10^3/uL (0.0-0.7) Basophils # (Auto) 0.0 x10^3/uL (0.0-0.2) Sodium Level 141 mmol/L (136-145) Potassium Level 4.4 mmol/L (3.5-5.1) Chloride Level 105 mmol/L (98-107) Carbon Dioxide Level 28 mmol/L (21-32) Anion Gap 8 (6-14) Blood Urea Nitrogen 34 mg/dL (8-26) Creatinine 1.4 mg/dL (0.7-1.3) Estimated GFR (Cockcroft-Gault) 50.1 Glucose Level 146 mg/dL (70-99) Calcium Level 8.9 mg/dL (8.5-10.1) Objective Assessment S/P falls Leukocytosis Knee pain Rt toe ulcer Obesity ? Pneumonia Plan Plan of Care d/c vanc d/c to rehab on po levaquin ok repeat sed rate out pt after about 2 wks SUJEY JEAN MD May 21, 2018 09:47
[2018-05-21] MEDS ORDERED: OXYC5TAB4 PO (10:04)
[2018-05-21] MEDS ORDERED: GUAI5SYR PO (10:04)
[2018-05-21] MEDS ORDERED: LEVO500T59 PO (10:04)
[2018-05-21] MEDS ORDERED: MULT1TAB90 PO (10:04)
[2018-05-21] MEDS ORDERED: BUDE0.5A NEB (10:04)
[2018-05-21] MEDS ORDERED: ALBU2.5V8 NEB (10:04)
[2018-05-21] MEDS ORDERED: IRON150C11 PO (10:04)
--- NOTE | 2018-05-21 10:06 | SNU/HH DC ---
DISCHARGE ORDERS DISCHARGE INFORMATION: DISCHARGE DATE: May 21, 2018 FINAL DIAGNOSIS Problems Medical Problems: (1) Chronic knee pain Status: Acute CONDITION ON DISCHARGE: Stable CODE STATUS: Code Status: Full DETENTION: SNF STAY <30 DAYS: Yes HOSPICE: HOSPICE: No HOSPICE EVAL & TREAT: No LTAC: ADMIT TO LTAC: No POST DISCHARGE ORDERS: ACTIVITY ORDERS: Activity as tolerated WEIGHT BEARING STATUS: As tolerated DIET AFTER DISCHARGE: ADA WOUND/INCISION CARE: Keep wound elevated CHECKS AFTER DISCHARGE: CHECKS AFTER DISCHARGE: Check blood press - daily, Check blood sugar, ac/hs FOLLOW-UP: PHYSICIAN FOLLOW-UP: esr in 2 weeks, IF still very high then further work up warranted (ESR is > TREATMENT/EQUIPMENT ORDERS: ADAPTIVE EQUIPMENT NEEDED: Cane, Front wheeled walker Physical Therapy For: Evalulation/Treatment Occupational Therapy For: Evaluation/Treatment Speech Language Pathology For: Swallow Cognition DISCHARGE MEDICATIONS: Home Meds Active Scripts Multivits,Ca,Minerals/Iron/Fa (THERA-M TABLET) 1 Each Tablet, 1 TAB PO DAILY for mvi MDD 1, #30 TAB Prov:VENTURA JULES MD 05/21/18 Budesonide (BUDESONIDE) 0.5 Mg/2 Ml Ampul.neb, 0.5 MG NEB RTBID for copd MDD 1, #60 EACH Prov:VENTURA JULES MD 05/21/18 Guaifenesin/Dextromethorphan (GUAIFENESIN DM SYRUP) 5 Ml Syrup, 10 ML PO PRN Q6HRS PRN for COUGH, 1st CHOICE MDD 1, #30 MISC Prov:VENTURA JULES MD 05/21/18 Albuterol Sulfate (Proair Hfa) 8.5 Gm Hfa.aer.ad, 2.5 MG NEB PRN Q4HRS PRN for SHORTNESS OF BREATH MDD 1, #60 INHALER Prov:VENTURA JULES MD 05/21/18 Iron Polysaccharides Complex (POLY-IRON) 150 Mg Capsule, 150 MG PO BID for LOUISE MDD 1, #60 CAP Prov:VENTURA JULES MD 05/21/18 Levofloxacin (LEVAQUIN) 500 Mg Tablet, 500 MG PO DAILY06 for pneumonia MDD 1 for 5 Days, #5 TAB Prov:VENTURA JULES MD 05/21/18 Oxycodone Hcl (OXYCODONE HCL IMMED.RELEASE ) 5 Mg Tablet, 10 MG PO PRN Q4HRS PRN for SEVERE PAIN MDD 1, #20 TAB-CAP Prov:VENTURA JULES MD 05/21/18 Meloxicam (MELOXICAM) 7.5 Mg Tablet, 7.5 MG PO DAILY, #20 TAB Prov:JE BASURTO DO 05/15/18 Reported Medications Insulin Aspart (NOVOLOG FLEXPEN) 100 Unit/1 Ml Insuln.pen, 30 SQ TIDWMEALS, SYR 05/09/16 Aspirin (ASPIRIN) 325 Mg Tablet, 0.5 TAB PO DAILY, #30 TAB 5 Refills 10/25/15 Sennosides/Docusate Sodium (SENNA-S TABLET) 1 Each Tablet, 1 EACH PO BID 10/25/15 Nystatin (NYAMYC) 15 Gm Powder, 15 GM TP DAILY 10/25/15 Lactobacillus Rhamnosus Gg (CULTURELLE) 1 Each Capsule, 1 EACH PO BIDWMEALS 10/25/15 Insulin Glargine,Hum.rec.anlog (LANTUS SOLOSTAR) 100 Unit/1 Ml Insuln.pen, 45 UNIT SQ QHS, #15 ML 3 Refills 10/25/15 Hydralazine Hcl (HYDRALAZINE HCL) 25 Mg Tablet, 2 TAB PO TID, #90 TAB 5 Refills 10/25/15 Glucosamine Hcl/Chondr [place] A Na ([facility] GLUCOSAMINE-CHONDR TABLET) 1 Each Tablet, 2 EACH PO DAILY 10/25/15 Gabapentin (GABAPENTIN ) 300 Mg Capsule, 300 MG PO HS, CAP 10/25/15 Gabapentin (GABAPENTIN ) 100 Mg Capsule, 200 MG PO BIDWBKFT/AVE, CAP 10/25/15 Fluticasone Propionate (Flonase Allergy Relief) 9.9 Ml [place].susp, 2 SPRAYS NS DAILY, BOTTLE 10/25/15 Zinc Oxide (Elta Seal Moisture Barrier) 114 Gm Cream..g., 114 GM TP BID 10/25/15 Diphenhydramine Hcl (DIPHENHYDRAMINE HCL) 50 Mg Capsule, 25 MG PO Q6HRS PRN for ALLERGIES 10/25/15 Cholecalciferol (Vitamin D3) (VITAMIN D3) 1,000 Unit Tablet, 2000 UNIT PO DAILY 10/25/15 Atorvastatin Calcium (ATORVASTATIN CALCIUM) 20 Mg Tablet, DAILY, #90 10/25/15 Venlafaxine Hcl (VENLAFAXINE HCL ER) 150 Mg Cap.er.24h, DAILY, #90 10/25/15 Furosemide (FUROSEMIDE) 20 Mg Tablet, 40 MG BID, #360 10/25/15 Lisinopril (LISINOPRIL) 40 Mg Tablet, 40 DAILY, #90 10/25/15 Carvedilol (CARVEDILOL) 25 Mg Tablet, 25 BID, #14 10/25/15 Pantoprazole Sodium (PANTOPRAZOLE SODIUM) 40 Mg Tablet.dr, DAILY, #90 10/25/15 Bupropion Hcl (BUPROPION HCL SR) 150 Mg Tablet.er, 150 BID, #180 10/25/15 VENTURA JULES MD May 21, 2018 10:06
--- NOTE | 2018-05-21 10:21 | PDOC3 ---
Discharge Summary Visit Information Date of Admission: May 15, 2018 Date of Discharge: May 21, 2018 Admitting Diagnosis Comment: Right big toe wound-looks not infected no I and D needed All toes amputated left foot Severe bilateral knee osteoarthritis Inability to care for self Morbid obesity with a BMI of 56 Impaired mobility as a consequence of the severe osteoarthritis Leukocytosis in the background of steroid use Hyponatremia of no clinical consequence Normocytic anemia of chronic inflammation Hypertension, controlled Dyslipidemia History of diabetes mellitus type 2 insulin requiring Obesity hypovent syndrome Esr > 130 Final Diagnosis Problems Medical Problems: (1) Chronic knee pain Status: Acute Brief Hospital Course Allergies Allergies Coded Allergies Type Severity Reaction Last Updated Verified cefuroxime Allergy Intermediate 05/11/16 Yes piperacillin Adverse Reaction Intermediate RASH 10/25/15 Yes tazobactam Adverse Reaction Intermediate RASH 10/25/15 Yes zolpidem Adverse Reaction Intermediate HALLUCINATIONS 10/25/15 Yes glipizide Adverse Reaction Mild SENSITIVITY TO SUN 10/25/15 Yes Uncoded Allergies Type Severity Reaction Last Updated Verified DUST Allergy Mild SNEEZING 10/25/15 Vital Signs Vital Signs Date Time Temp Pulse Resp B/P (MAP) Pulse Ox O2 Delivery O2 Flow Rate FiO2 05/21/18 08:56 75 139/53 05/21/18 08:00 Room Air 05/21/18 07:26 18 05/21/18 07:00 98.1 97 98.1 Lab Results Laboratory Tests Test 05/19/18 11:35 05/19/18 13:15 05/19/18 16:36 05/19/18 16:49 Glucose (Fingerstick) 195 mg/dL (70-99) 49 mg/dL (70-99) 81 mg/dL (70-99) Vancomycin Level Trough 16.7 mcg/mL (10.0-20.0) Vancomycin Last Dose Date Unknown Vancomycin Last Dose Time Unknown Test 05/19/18 21:12 05/20/18 03:50 05/20/18 07:26 05/20/18 11:36 Glucose (Fingerstick) 107 mg/dL (70-99) 117 mg/dL (70-99) 95 mg/dL (70-99) Sodium Level 143 mmol/L (136-145) Potassium Level 4.7 mmol/L (3.5-5.1) Chloride Level 107 mmol/L (98-107) Carbon Dioxide Level 27 mmol/L (21-32) Anion Gap 9 (6-14) Blood Urea Nitrogen 45 mg/dL (8-26) Creatinine 1.5 mg/dL (0.7-1.3) Estimated GFR (Cockcroft-Gault) 46.3 Glucose Level 97 mg/dL (70-99) Calcium Level 9.2 mg/dL (8.5-10.1) Test 05/20/18 16:50 05/20/18 17:22 05/20/18 17:38 05/20/18 20:34 Glucose (Fingerstick) 41 mg/dL (70-99) 41 mg/dL (70-99) 133 mg/dL (70-99) 107 mg/dL (70-99) Test 05/21/18 03:55 05/21/18 07:29 White Blood Count 13.3 x10^3/uL (4.0-11.0) Red Blood Count 3.17 x10^6/uL (4.30-5.70) Hemoglobin 9.0 g/dL (13.0-17.5) Hematocrit 28.0 % (39.0-53.0) Mean Corpuscular Volume 88 fL (79-100) Mean Corpuscular Hemoglobin 28 pg (25-35) Mean Corpuscular Hemoglobin Concent 32 g/dL (31-37) Red Cell Distribution Width 14.0 % (11.5-14.5) Platelet Count 278 x10^3/uL (140-400) Neutrophils (%) (Auto) 80 % (31-73) Lymphocytes (%) (Auto) 8 % (24-48) Monocytes (%) (Auto) 11 % (0-9) Eosinophils (%) (Auto) 2 % (0-3) Basophils (%) (Auto) 0 % (0-3) Neutrophils # (Auto) 10.6 x10^3uL (1.8-7.7) Lymphocytes # (Auto) 1.0 x10^3/uL (1.0-4.8) Monocytes # (Auto) 1.4 x10^3/uL (0.0-1.1) Eosinophils # (Auto) 0.2 x10^3/uL (0.0-0.7) Basophils # (Auto) 0.0 x10^3/uL (0.0-0.2) Sodium Level 141 mmol/L (136-145) Potassium Level 4.4 mmol/L (3.5-5.1) Chloride Level 105 mmol/L (98-107) Carbon Dioxide Level 28 mmol/L (21-32) Anion Gap 8 (6-14) Blood Urea Nitrogen 34 mg/dL (8-26) Creatinine 1.4 mg/dL (0.7-1.3) Estimated GFR (Cockcroft-Gault) 50.1 Glucose Level 146 mg/dL (70-99) Calcium Level 8.9 mg/dL (8.5-10.1) Glucose (Fingerstick) 162 mg/dL (70-99) Laboratory Tests Test 05/20/18 11:36 05/20/18 16:50 05/20/18 17:22 05/20/18 17:38 Glucose (Fingerstick) 95 mg/dL (70-99) 41 mg/dL (70-99) 41 mg/dL (70-99) 133 mg/dL (70-99) Test 05/20/18 20:34 05/21/18 03:55 05/21/18 07:29 Glucose (Fingerstick) 107 mg/dL (70-99) 162 mg/dL (70-99) White Blood Count 13.3 x10^3/uL (4.0-11.0) Red Blood Count 3.17 x10^6/uL (4.30-5.70) Hemoglobin 9.0 g/dL (13.0-17.5) Hematocrit 28.0 % (39.0-53.0) Mean Corpuscular Volume 88 fL (79-100) Mean Corpuscular Hemoglobin 28 pg (25-35) Mean Corpuscular Hemoglobin Concent 32 g/dL (31-37) Red Cell Distribution Width 14.0 % (11.5-14.5) Platelet Count 278 x10^3/uL (140-400) Neutrophils (%) (Auto) 80 % (31-73) Lymphocytes (%) (Auto) 8 % (24-48) Monocytes (%) (Auto) 11 % (0-9) Eosinophils (%) (Auto) 2 % (0-3) Basophils (%) (Auto) 0 % (0-3) Neutrophils # (Auto) 10.6 x10^3uL (1.8-7.7) Lymphocytes # (Auto) 1.0 x10^3/uL (1.0-4.8) Monocytes # (Auto) 1.4 x10^3/uL (0.0-1.1) Eosinophils # (Auto) 0.2 x10^3/uL (0.0-0.7) Basophils # (Auto) 0.0 x10^3/uL (0.0-0.2) Sodium Level 141 mmol/L (136-145) Potassium Level 4.4 mmol/L (3.5-5.1) Chloride Level 105 mmol/L (98-107) Carbon Dioxide Level 28 mmol/L (21-32) Anion Gap 8 (6-14) Blood Urea Nitrogen 34 mg/dL (8-26) Creatinine 1.4 mg/dL (0.7-1.3) Estimated GFR (Cockcroft-Gault) 50.1 Glucose Level 146 mg/dL (70-99) Calcium Level 8.9 mg/dL (8.5-10.1) Brief Hospital Course Mr. Herrera is a 72 old obese male who came in because of inability to ambulate he is very obese she has bilateral OA. He's amputated on all left toes from diabetes. He had some right big toe wound which did not need I&D but just IV antibiotics with orthopedics on case. RT big toe Wound looks great. ESR is > than 130 with maybe pneumonia on chest CT. plus atelectasis Course remarkable for hypoxia and unable to rousebecause of obesity hypoventilation syndrome needing BiPAP or CPAP at night. I tapered gabapentin and buspirone and maybe even dcd it bec of difficulty rousing He will need a sleep study as outpatient. He needs SNU and is agreeable and has been accepted I consulted infectious disease Because of ESR > 130 and leukocytosis 13 in the background of recent steroid use in the knee, but no fevers. Agreeable to Levaquin for 5 more days and if repeat ESR in 2 weeks. If still elevated then might need further workup Patient needs to lose weight and all his problems will most likely be better Discharge disposition to SNU Full code New medications Levaquin and other inhalers etc. Levaquin for 5 days Discharge Information Condition at Discharge: Improved, Stable Disposition/Orders: Other (snu) Scheduled Aspirin (Aspirin) 325 Mg Tablet, 0.5 TAB PO DAILY, #30 Ref 5 (Reported) Entered as Reported by: ALEJANDRA HERRON on 10/25/151602 Last Action: Continued on 05/15/181413 by RAJ VANEGAS MD Atorvastatin Calcium (Atorvastatin Calcium) 20 Mg Tablet, DAILY, #90 (Reported) Entered as Reported by: KELI MARTINEZ on 10/25/15219 Last Action: Continued on 05/15/181413 by RAJ VANEGAS MD Budesonide (Budesonide) 0.5 Mg/2 Ml Ampul.neb, 0.5 MG NEB RTBID for copd MDD 1, #60 Prescribed by: VENTURA JULES on 05/21/18 1004 Bupropion Hcl (Bupropion Hcl Sr) 150 Mg Tablet.er, 150 BID, #180 (Reported) Entered as Reported by: KELI MARTINEZ on 10/25/15219 Last Action: Continued on 05/15/181413 by RAJ VANEGAS MD Carvedilol (Carvedilol) 25 Mg Tablet, 25 BID, #14 (Reported) Entered as Reported by: KELI MARTINEZ on 10/25/15219 Last Action: Converted on 05/15/181413 by RAJ VANEGAS MD Cholecalciferol (Vitamin D3) (Vitamin D3) 1,000 Unit Tablet, 2,000 UNIT PO DAILY , (Reported) Entered as Reported by: ALEJANDRA HERRON on 10/25/151602 Last Action: Continued on 05/15/181413 by RAJ VANEGAS MD Fluticasone Propionate (Flonase Allergy Relief) 9.9 Ml [place].susp, 2 SPRAYS NS DAILY, (Reported) Entered as Reported by: ALEJANDRA HERRON on 10/25/151602 Last Action: Converted on 05/15/181413 by RAJ VANEGAS MD Furosemide (Furosemide) 20 Mg Tablet, 40 MG BID, #360 (Reported) Entered as Reported by: KELI MARTINEZ on 10/25/15219 Last Action: Continued on 05/15/181413 by RAJ VANEGAS MD Gabapentin (Gabapentin ) 100 Mg Capsule, 200 MG PO BIDWBKFT/AVE, (Reported) Entered as Reported by: ALEJANDRA HERRON on 10/25/151602 Last Action: Continued on 05/15/181413 by RAJ VANEGAS MD Gabapentin (Gabapentin ) 300 Mg Capsule, 300 MG PO HS, (Reported) Entered as Reported by: ALEJANDRA HERRON on 10/25/151602 Last Action: Continued on 05/15/181413 by RAJ VANEGAS MD Glucosamine Hcl/Chondr [place] A Na (Cvs Glucosamine-Chondr Tablet) 1 Each Tablet, 2 EACH PO DAILY, (Reported) Entered as Reported by: ALEJANDRA HERRON on 10/25/151602 Last Action: Converted on 05/15/181413 by RAJ VANEGAS MD Hydralazine Hcl (Hydralazine Hcl) 25 Mg Tablet, 2 TAB PO TID, #90 Ref 5 ( Reported) Entered as Reported by: ALEJANDRA HERRON on 10/25/151602 Last Action: Converted on 05/15/181413 by RAJ VANEGAS MD Insulin Aspart (Novolog Flexpen) 100 Unit/1 Ml Insuln.pen, 30 SQ TIDWMEALS, ( Reported) Entered as Reported by: Darcy Gallardo RN on 05/09/16 2346 Last Action: Converted on 05/15/181413 by RAJ VANEGAS MD Insulin Glargine,Hum.rec.anlog (Lantus Solostar) 100 Unit/1 Ml Insuln.pen, 45 UNIT SQ QHS, #15 Ref 3 (Reported) Entered as Reported by: ALEJANDRA HERRON on 10/25/151602 Last Action: Continued on 05/15/181413 by RAJ VANEGAS MD Iron Polysaccharides Complex (Poly-Iron) 150 Mg Capsule, 150 MG PO BID for LOUISE MDD 1, #60 Prescribed by: VENTURA JULES on 05/21/18 1004 Lactobacillus Rhamnosus Gg (Culturelle) 1 Each Capsule, 1 EACH PO BIDWMEALS, ( Reported) Entered as Reported by: ALEJANDRA HERRON on 10/25/151602 Last Action: Converted on 05/15/181413 by RAJ VANEGAS MD Levofloxacin (Levaquin) 500 Mg Tablet, 500 MG PO DAILY06 for pneumonia MDD 1 for 5 Days, #5 Prescribed by: VENTURA JULES on 05/21/18 1004 Lisinopril (Lisinopril) 40 Mg Tablet, 40 DAILY, #90 (Reported) Entered as Reported by: KELI MARTINEZ on 10/25/15219 Last Action: Continued on 05/15/181413 by RAJ VANEGAS MD Meloxicam (Meloxicam) 7.5 Mg Tablet, 7.5 MG PO DAILY, #20 Prescribed by: JE BASURTO DO on 05/15/18 1201 Last Action: Converted on 05/15/181413 by RAJ VANEGAS MD Multivits,Ca,Minerals/Iron/Fa (Thera-M Tablet) 1 Each Tablet, 1 TAB PO DAILY for mvi MDD 1, #30 Prescribed by: VENTURA JULES on 05/21/18 1004 Nystatin (Nyamyc) 15 Gm Powder, 15 GM TP DAILY, (Reported) Entered as Reported by: ALEJANDRA HERRON on 10/25/15 160 Last Action: Continued on 05/15/181413 by RAJ VANEGAS MD Pantoprazole Sodium (Pantoprazole Sodium) 40 Mg Tablet.dr, DAILY, #90 (Reported) Entered as Reported by: KELI MARTINEZ on 10/25/15219 Last Action: Continued on 05/15/181413 by RAJ VANEGAS MD Sennosides/Docusate Sodium (Senna-S Tablet) 1 Each Tablet, 1 EACH PO BID, ( Reported) Entered as Reported by: ALEJANDRA HERRON on 10/25/15 160 Last Action: Continued on 05/15/181413 by RAJ VANEGAS MD Venlafaxine Hcl (Venlafaxine Hcl Er) 150 Mg Cap.er.24h, DAILY, #90 (Reported) Entered as Reported by: KELI MARTINEZ on 10/25/15219 Zinc Oxide (Elta Seal Moisture Barrier) 114 Gm Cream..g., 114 GM TP BID, ( Reported) Entered as Reported by: ALEJANDRA HERRON on 10/25/15 160 Last Action: Converted on 05/15/181413 by RAJ VANEGAS MD Scheduled PRN Albuterol Sulfate (Proair Hfa) 8.5 Gm Hfa.aer.ad, 2.5 MG NEB PRN Q4HRS PRN for SHORTNESS OF BREATH MDD 1, #60 Prescribed by: VENTURA JULES on 05/21/18 1004 Diphenhydramine Hcl (Diphenhydramine Hcl) 50 Mg Capsule, 25 MG PO Q6HRS PRN for ALLERGIES, (Reported) Entered as Reported by: ALEJANDRA HERRON on 10/25/15 1603 Last Action: Converted on 05/15/18 1414 by RAJ VANEGAS MD Guaifenesin/Dextromethorphan (Guaifenesin Dm Syrup) 5 Ml Syrup, 10 ML PO PRN Q6HRS PRN for COUGH, 1st CHOICE MDD 1, #30 Prescribed by: VENTURA JULES on 05/21/18 1004 Oxycodone Hcl (Oxycodone Hcl Immed.release ) 5 Mg Tablet, 10 MG PO PRN Q4HRS PRN for SEVERE PAIN MDD 1, #20 Prescribed by: VENTURA JULES on 05/21/18 1004 VENTURA JULES MD May 21, 2018 10:21
[2018-05-21 11:00] VITALS: BP 127/88
--- NOTE | 2018-05-21 12:06 | PDOC ---
Renal-Progress Notes Subjective Notes Notes NOTHING NEW History of Present Illness Hx of present illness STABLE Vitals Vitals Vital Signs Date Time Temp Pulse Resp B/P (MAP) Pulse Ox O2 Delivery O2 Flow Rate FiO2 05/21/18 11:25 96 Room Air 05/21/18 11:00 97.8 80 16 127/88 (101) 97.8 Weight Weight [ ] I.O. Intake and Output Intake and Output 05/21/18 06:59 Intake Total 1240 ml Output Total 1925 ml Balance -685 ml Intake Oral 640 ml IV Total 600 ml Output Urine Total 1925 ml # Voids 1 Labs Labs Laboratory Tests Test 05/20/18 16:50 05/20/18 17:22 05/20/18 17:38 05/20/18 20:34 Glucose (Fingerstick) 41 mg/dL (70-99) 41 mg/dL (70-99) 133 mg/dL (70-99) 107 mg/dL (70-99) Test 05/21/18 03:55 05/21/18 07:29 05/21/18 11:44 White Blood Count 13.3 x10^3/uL (4.0-11.0) Red Blood Count 3.17 x10^6/uL (4.30-5.70) Hemoglobin 9.0 g/dL (13.0-17.5) Hematocrit 28.0 % (39.0-53.0) Mean Corpuscular Volume 88 fL (79-100) Mean Corpuscular Hemoglobin 28 pg (25-35) Mean Corpuscular Hemoglobin Concent 32 g/dL (31-37) Red Cell Distribution Width 14.0 % (11.5-14.5) Platelet Count 278 x10^3/uL (140-400) Neutrophils (%) (Auto) 80 % (31-73) Lymphocytes (%) (Auto) 8 % (24-48) Monocytes (%) (Auto) 11 % (0-9) Eosinophils (%) (Auto) 2 % (0-3) Basophils (%) (Auto) 0 % (0-3) Neutrophils # (Auto) 10.6 x10^3uL (1.8-7.7) Lymphocytes # (Auto) 1.0 x10^3/uL (1.0-4.8) Monocytes # (Auto) 1.4 x10^3/uL (0.0-1.1) Eosinophils # (Auto) 0.2 x10^3/uL (0.0-0.7) Basophils # (Auto) 0.0 x10^3/uL (0.0-0.2) Sodium Level 141 mmol/L (136-145) Potassium Level 4.4 mmol/L (3.5-5.1) Chloride Level 105 mmol/L (98-107) Carbon Dioxide Level 28 mmol/L (21-32) Anion Gap 8 (6-14) Blood Urea Nitrogen 34 mg/dL (8-26) Creatinine 1.4 mg/dL (0.7-1.3) Estimated GFR (Cockcroft-Gault) 50.1 Glucose Level 146 mg/dL (70-99) Calcium Level 8.9 mg/dL (8.5-10.1) Glucose (Fingerstick) 162 mg/dL (70-99) 141 mg/dL (70-99) Review of Systems Constitutional: yes: alert, oriented Ears/Nose/Throat: Yes: no symptom reported Eyes: Yes: no symptom reported Pulmonary: Yes no symptom reported Cardiovascular: Yes no symptom reported Gastrointestional: Yes: no symptom reported Genitourinary: Yes: no symptom reported Musculoskeletal: Yes: no symptom reported Skin: Yes no symptom reported Psychiatric/Neurological: Yes: no symptom reported Endocrine: Yes: no symptom reported Physical Exam General Appearance: no apparent distress Skin: warm Respiratory: bilateral CTA Heart: S1S2 Abdomen: soft, bowel sounds present Genitourinary: bladder flat Extremities: pulses present Neurology: alert Assessment Assessment IMP CKD STAGE 3-CR AT HIS USUAL BASELINE - 1.4 MORBID OBESITY DM II HTN KNEE OA PLAN PER ORTHO WILL SIGN OFF PLEASE CALL IF NEEDED DENG ARVIZU MD May 21, 2018 12:06
--- NOTE | 2018-05-21 12:59 | PDOC ---
PROGRESS NOTES Subjective Subjective He admits soreness in his right knee and neck pain with movement. Objective Objective Vital Signs Date Time Temp Pulse Resp B/P (MAP) Pulse Ox O2 Delivery O2 Flow Rate FiO2 05/21/18 11:25 96 Room Air 05/21/18 11:00 97.8 80 16 127/88 (101) 97.8 Intake and Output 05/21/18 06:59 Intake Total 1240 ml Output Total 1925 ml Balance -685 ml Intake Oral 640 ml IV Total 600 ml Output Urine Total 1925 ml # Voids 1 Physical Exam Physical Exam He is sitting in bedside chair and does not seem to be any sny acute distress and continues with crepitus on ROM of his knees with mild joint effusion and tenderness to palpation over left lower cervical paraspinal and upper trapezius muscle area with paifully limited cervical spine ROM. He is getting up with assistance and walking with roller walker for short distances and low physical endurance. Assessment Assessment Problems Medical Problems: (1) Chronic knee pain Status: Acute Plan Plan of Care Agree with plans for SNF transfer when arrangements are completed. Comment Review of Relevant I have reviewed the following items minnie (where applicable) has been applied. Labs Laboratory Tests Test 05/19/18 13:15 05/19/18 16:36 05/19/18 16:49 05/19/18 21:12 Vancomycin Level Trough 16.7 mcg/mL (10.0-20.0) Vancomycin Last Dose Date Unknown Vancomycin Last Dose Time Unknown Glucose (Fingerstick) 49 mg/dL (70-99) 81 mg/dL (70-99) 107 mg/dL (70-99) Test 05/20/18 03:50 05/20/18 07:26 05/20/18 11:36 05/20/18 16:50 Sodium Level 143 mmol/L (136-145) Potassium Level 4.7 mmol/L (3.5-5.1) Chloride Level 107 mmol/L (98-107) Carbon Dioxide Level 27 mmol/L (21-32) Anion Gap 9 (6-14) Blood Urea Nitrogen 45 mg/dL (8-26) Creatinine 1.5 mg/dL (0.7-1.3) Estimated GFR (Cockcroft-Gault) 46.3 Glucose Level 97 mg/dL (70-99) Calcium Level 9.2 mg/dL (8.5-10.1) Glucose (Fingerstick) 117 mg/dL (70-99) 95 mg/dL (70-99) 41 mg/dL (70-99) Test 05/20/18 17:22 05/20/18 17:38 05/20/18 20:34 05/21/18 03:55 Glucose (Fingerstick) 41 mg/dL (70-99) 133 mg/dL (70-99) 107 mg/dL (70-99) White Blood Count 13.3 x10^3/uL (4.0-11.0) Red Blood Count 3.17 x10^6/uL (4.30-5.70) Hemoglobin 9.0 g/dL (13.0-17.5) Hematocrit 28.0 % (39.0-53.0) Mean Corpuscular Volume 88 fL (79-100) Mean Corpuscular Hemoglobin 28 pg (25-35) Mean Corpuscular Hemoglobin Concent 32 g/dL (31-37) Red Cell Distribution Width 14.0 % (11.5-14.5) Platelet Count 278 x10^3/uL (140-400) Neutrophils (%) (Auto) 80 % (31-73) Lymphocytes (%) (Auto) 8 % (24-48) Monocytes (%) (Auto) 11 % (0-9) Eosinophils (%) (Auto) 2 % (0-3) Basophils (%) (Auto) 0 % (0-3) Neutrophils # (Auto) 10.6 x10^3uL (1.8-7.7) Lymphocytes # (Auto) 1.0 x10^3/uL (1.0-4.8) Monocytes # (Auto) 1.4 x10^3/uL (0.0-1.1) Eosinophils # (Auto) 0.2 x10^3/uL (0.0-0.7) Basophils # (Auto) 0.0 x10^3/uL (0.0-0.2) Sodium Level 141 mmol/L (136-145) Potassium Level 4.4 mmol/L (3.5-5.1) Chloride Level 105 mmol/L (98-107) Carbon Dioxide Level 28 mmol/L (21-32) Anion Gap 8 (6-14) Blood Urea Nitrogen 34 mg/dL (8-26) Creatinine 1.4 mg/dL (0.7-1.3) Estimated GFR (Cockcroft-Gault) 50.1 Glucose Level 146 mg/dL (70-99) Calcium Level 8.9 mg/dL (8.5-10.1) Test 05/21/18 07:29 05/21/18 11:44 Glucose (Fingerstick) 162 mg/dL (70-99) 141 mg/dL (70-99) Laboratory Tests Test 05/20/18 16:50 05/20/18 17:22 05/20/18 17:38 05/20/18 20:34 Glucose (Fingerstick) 41 mg/dL (70-99) 41 mg/dL (70-99) 133 mg/dL (70-99) 107 mg/dL (70-99) Test 05/21/18 03:55 05/21/18 07:29 05/21/18 11:44 White Blood Count 13.3 x10^3/uL (4.0-11.0) Red Blood Count 3.17 x10^6/uL (4.30-5.70) Hemoglobin 9.0 g/dL (13.0-17.5) Hematocrit 28.0 % (39.0-53.0) Mean Corpuscular Volume 88 fL (79-100) Mean Corpuscular Hemoglobin 28 pg (25-35) Mean Corpuscular Hemoglobin Concent 32 g/dL (31-37) Red Cell Distribution Width 14.0 % (11.5-14.5) Platelet Count 278 x10^3/uL (140-400) Neutrophils (%) (Auto) 80 % (31-73) Lymphocytes (%) (Auto) 8 % (24-48) Monocytes (%) (Auto) 11 % (0-9) Eosinophils (%) (Auto) 2 % (0-3) Basophils (%) (Auto) 0 % (0-3) Neutrophils # (Auto) 10.6 x10^3uL (1.8-7.7) Lymphocytes # (Auto) 1.0 x10^3/uL (1.0-4.8) Monocytes # (Auto) 1.4 x10^3/uL (0.0-1.1) Eosinophils # (Auto) 0.2 x10^3/uL (0.0-0.7) Basophils # (Auto) 0.0 x10^3/uL (0.0-0.2) Sodium Level 141 mmol/L (136-145) Potassium Level 4.4 mmol/L (3.5-5.1) Chloride Level 105 mmol/L (98-107) Carbon Dioxide Level 28 mmol/L (21-32) Anion Gap 8 (6-14) Blood Urea Nitrogen 34 mg/dL (8-26) Creatinine 1.4 mg/dL (0.7-1.3) Estimated GFR (Cockcroft-Gault) 50.1 Glucose Level 146 mg/dL (70-99) Calcium Level 8.9 mg/dL (8.5-10.1) Glucose (Fingerstick) 162 mg/dL (70-99) 141 mg/dL (70-99) Medications Current Medications Ibuprofen (Motrin) 400 mg 1X ONCE PO Last administered on 05/15/18 10:58; Start 05/15/18 at 10:30; Stop 05/15/18 at 10:31; Status DC Ondansetron HCl (Zofran) 4 mg PRN Q4HRS PRN IV NAUSEA/VOMITING; Start 05/15/18 at 14:15 Zolpidem Tartrate (Ambien) 5 mg PRN QHS PRN PO INSOMNIA Last administered on 23:29; Start 05/15/18 at 14:15; Stop 05/17/18 at 23:35; Status DC Acetaminophen (Tylenol) 650 mg PRN Q4HRS PRN PO TEMP OVER 100.4F OR MILD PAIN Last administered on 05/16/18at 23:29; Start 05/15/18 at 14:15 Clonidine HCl (Catapres) 0.1 mg PRN Q6HRS PRN PO SBP>160 OR DBP>90; Start at 14:15 Albuterol/ Ipratropium (Duoneb) 3 ml Q4HRS NEB Last administered on 05/21/18at 11:24; Start 05/15/18 at 16:00 Guaifenesin (Robitussin) 200 mg PRN Q4HRS PRN PO COUGH, 2nd CHOICE Last administered on 05/21/18 06:29; Start 05/15/18 at 14:15 Lorazepam (Ativan) 0.5 mg PRN Q4HRS PRN PO ANXIETY / AGITATION Last administered on 05/16/18 23:29; Start 05/15/18 at 14:15; Stop 05/19/18 at 11:14; Status DC Enoxaparin Sodium (Lovenox 60mg Syringe) 60 mg Q12HR SQ ; Start 05/15/18 at 21:00 ; Status Cancel Aspirin (Jacquelin Aspirin) 162.5 mg DAILY PO Last administered on 05/21/18 08:55 ; Start 05/15/18 at 15:30 Atorvastatin Calcium (Lipitor) 20 mg QHS PO Last administered on 05/20/18 20: 35; Start 05/15/18 at 21:00 Bupropion HCl (Wellbutrin Sr) 150 mg BID PO Last administered on 05/18/18 08: 07; Start 05/15/18 at 21:00; Stop 05/18/18 at 18:14; Status DC Vitamin D (Vitamin D3) 2,000 unit DAILY PO Last administered on 05/21/18 08:54 ; Start 05/15/18 at 15:30 Furosemide (Lasix) 40 mg BID94 PO Last administered on 05/15/18 17:33; Start at 16:00; Stop 05/16/18 at 10:55; Status DC Gabapentin (Neurontin) 200 mg BIDWBKFT/AVE PO Last administered on 05/18/18 12 :44; Start 05/16/18 at 08:00; Stop 05/18/18 at 16:18; Status DC Gabapentin (Neurontin) 300 mg HS PO Last administered on 05/17/18 22:07; Start 05/15/18 at 21:00; Stop 05/19/18 at 11:14; Status DC Insulin Glargine (Lantus) 45 units QHS SQ Last administered on 05/18/18 21:31 ; Start 05/15/18 at 21:00 Lisinopril (Prinivil) 40 mg DAILY PO Last administered on 05/15/18 17:37; Start 05/15/18 at 15:30; Stop 05/16/18 at 10:55; Status DC Nystatin (Nystop) 15 ritu DAILY TP Last administered on 05/21/18 08:55; Start 05/16/18 at 09:00 Oxycodone HCl (Roxicodone) 10 mg PRN Q4HRS PRN PO MODERATE TO SEVERE PAIN Last administered on 05/21/18 06:26; Start 05/15/18 at 14:15 Pantoprazole Sodium (Protonix) 40 mg DAILYAC PO Last administered on 05/21/18 06:26; Start 05/15/18 at 15:30 Senna/Docusate Sodium (Senna Plus) 1 tab BID PO Last administered on 05/21/18 08:55; Start 05/15/18 at 21:00 Carvedilol (Coreg) 25 mg BIDWMEALS PO Last administered on 05/21/18 07:46; Start 05/15/18 at 17:00 Diphenhydramine HCl (Benadryl) 25 mg PRN Q6HRS PRN PO ALLERGIES; Start 05/15/18 at 14:30; Stop 05/18/18 at 18:14; Status DC Fluticasone Propionate (Flonase) 2 spray DAILY NS Last administered on 08:53; Start 05/16/18 at 09:00 Non-Formulary Medication (Glucosamine Hcl/ Chondr [place] A Na ([facility] Glucosamine- Chondr Tablet)) 2 each DAILY PO ; Start 05/16/18 at 09:00; Status UNV Hydralazine HCl (Apresoline) 50 mg TID PO Last administered on 05/21/18 08:56 ; Start 05/15/18 at 15:30 Insulin Human Lispro (HumaLOG) 30 units TIDWMEALS SQ Last administered on 11:54; Start 05/15/18 at 17:00 Lactobacillus Rhamnosus (Culturelle) 1 cap BID PO Last administered on 08:54; Start 05/15/18 at 21:00 Meloxicam (Mobic) 7.5 mg DAILY PO Last administered on 05/18/18 08:05; Start 05/15/18 at 15:30; Stop 05/18/18 at 16:18; Status DC Zinc Oxide (Zinc Oxide 20% Topical) 1 ritu BID TP Last administered on 08:53; Start 05/15/18 at 21:00 Ondansetron HCl (Zofran) 4 mg PRN Q8HRS PRN IV NAUSEA/VOMITING; Start 05/15/18 at 14:30; Stop 05/16/18 at 14:29; Status DC Acetaminophen (Tylenol) 650 mg PRN Q4HRS PRN PO FEVER; Start 05/15/18 at 14:30; Stop 05/16/18 at 14:29; Status DC Morphine Sulfate (Morphine Sulfate) 2 mg PRN Q2HR PRN IV PAIN Last administered on 05/16/18at 08:48; Start 05/15/18 at 15:45 Heparin Sodium (Porcine) (Heparin Sodium) 5,000 unit Q8HRS SQ Last administered on 05/21/18at 06:34; Start 05/15/18 at 22:00 Methylprednisolone Acetate (DEPO-Medrol 80MG VIAL) 80 mg 1X ONCE INJ Last administered on 05/17/18at 08:49; Start 05/17/18 at 08:15; Stop 05/17/18 at 08:16 ; Status DC Lidocaine HCl (Xylocaine-Mpf 1% 2ml Vial) 2 ml 1X ONCE INJ Last administered on 05/17/18at 08:50; Start 05/17/18 at 08:00; Stop 05/17/18 at 08:01; Status DC Budesonide (Pulmicort) 0.5 mg RTBID NEB Last administered on 05/21/18at 07:11; Start 05/17/18 at 20:00 Albuterol Sulfate (Ventolin Neb Soln) 2.5 mg PRN Q4HRS PRN NEB SHORTNESS OF BREATH; Start 05/17/18 at 08:30 Guaifenesin (Robitussin Dm) 10 ml PRN Q6HRS PRN PO COUGH, 1st CHOICE Last administered on 05/18/18 21:24; Start 05/17/18 at 08:30 Sodium Chloride 1,000 ml @ 75 mls/hr [id number] IV Last administered on at 16:08; Start 05/18/18 at 00:30; Stop 05/19/18 at 11:14; Status DC Levofloxacin/ Dextrose 50 ml @ 50 mls/hr Q24H IV Last administered on at 00:45; Start 05/18/18 at 00:30; Stop 05/18/18 at 02:00; Status DC Vancomycin HCl (Vanco Per Pharmacy) 1 each PRN DAILY PRN MC SEE COMMENTS Last administered on 05/20/18 14:05; Start 05/18/18 at 00:30; Stop 05/21/18 at 09:53 ; Status DC Vancomycin HCl 2 gm/Sodium Chloride 500 ml @ 250 mls/hr 1X ONCE IV Last administered on 05/18/18at 02:15; Start 05/18/18 at 01:00; Stop 05/18/18 at 02:59 ; Status DC Levofloxacin/ Dextrose 50 ml @ 50 mls/hr Q24H IV ; Start 05/18/18 at 22:00; Stop 05/18/18 at 22:00; Status DC Insulin Human Lispro (HumaLOG) 0-7 UNITS TIDWMEALS SQ Last administered on 05/19at 13:57; Start 05/18/18 at 09:30 Dextrose (Dextrose 50%-Water Syringe) 12.5 gm PRN Q15MIN PRN IV SEE COMMENTS Last administered on 05/20/18 17:26; Start 05/18/18 at 09:30 Levofloxacin/ Dextrose 100 ml @ 100 mls/hr Q24H IV Last administered on 20:36; Start 05/18/18 at 21:00; Stop 05/21/18 at 09:54; Status DC Vancomycin HCl 2 gm/Sodium Chloride 500 ml @ 250 mls/hr Q18H IV Last administered on 05/21/18 02:21; Start 05/18/18 at 20:00; Stop 05/21/18 at 09:53 ; Status DC Vancomycin HCl (Vancomycin Trough Level) 1 each 1X ONCE MC Last administered on 05/19/18at 13:30; Start 05/19/18 at 13:30; Stop 05/19/18 at 13:31; Status DC Multi-Ingred Cream/Lotion/Oil/ Oint (Hydrocerin Cream) 1 riut QID TP Last administered on 05/21/18 08:53; Start 05/18/18 at 12:00 Polyethylene Glycol (miraLAX PACKET) 17 gm 1X ONCE PO Last administered on 01/26at 12:00; Start 05/18/18 at 12:00; Stop 05/18/18 at 12:01; Status DC Polyethylene Glycol (miraLAX PACKET) 17 gm DAILY PO Last administered on at 08:54; Start 05/19/18 at 09:00 Magnesium Hydroxide (Milk Of Magnesia) 2,400 mg 1X ONCE PO Last administered on 05/18/18at 12:44; Start 05/18/18 at 12:00; Stop 05/18/18 at 12:01; Status DC Magnesium Hydroxide (Milk Of Magnesia) 2,400 mg PRN DAILY PRN PO CONSTIPATION; Start 05/18/18 at 11:30 Bisacodyl (Dulcolax Supp) 10 mg PRN DAILY PRN CA CONSTIPATION; Start 05/18/18 at 11:30 Multivitamins (Thera M Plus) 1 tab DAILY PO Last administered on 05/21/18at 08: 55; Start 05/18/18 at 14:00 Diclofenac Sodium (Voltaren) 1 ritu BID TP Last administered on 05/21/18at 08:54 ; Start 05/18/18 at 21:00 Methylprednisolone Acetate (DEPO-Medrol 40MG VIAL) 40 mg 1X ONCE IM ; Start 01/26 at 16:15; Stop 05/18/18 at 16:20; Status DC Bupivacaine HCl (Sensorcaine-Mpf 0.25%) 10 ml 1X ONCE IJ ; Start 05/18/18 at 16 :15; Stop 05/18/18 at 16:20; Status DC Polysaccharide Iron Complex (Niferex 150) 150 mg BID PO Last administered on at 08:54; Start 05/18/18 at 21:00 Throat Lozenges (Cepacol Sore Throat Lozenge) 1 saran PRN Q2HRS PRN PO SORE THROAT Last administered on 05/20/18at 02:33; Start 05/19/18 at 16:45 Levofloxacin (Levaquin) 500 mg DAILY06 PO ; Start 05/22/18 at 06:00 Active Scripts Active Thera-M Tablet (Multivits,Ca,Minerals/Iron/Fa) 1 Each Tablet 1 Tab PO DAILY MDD 1 Budesonide 0.5 Mg/2 Ml Ampul.neb 0.5 Mg NEB RTBID MDD 1 Guaifenesin Dm Syrup (Guaifenesin/Dextromethorphan) 5 Ml Syrup 10 Ml PO PRN Q6HRS PRN MDD 1 Proair Hfa (Albuterol Sulfate) 8.5 Gm Hfa.aer.ad 2.5 Mg NEB PRN Q4HRS PRN MDD 1 Poly-Iron (Iron Polysaccharides Complex) 150 Mg Capsule 150 Mg PO BID MDD 1 Levaquin (Levofloxacin) 500 Mg Tablet 500 Mg PO DAILY06 MDD 1 5 Days Oxycodone Hcl Immed.release (Oxycodone Hcl) 5 Mg Tablet 10 Mg PO PRN Q4HRS PRN MDD 1 Meloxicam 7.5 Mg Tablet 7.5 Mg PO DAILY Reported Novolog Flexpen (Insulin Aspart) 100 Unit/1 Ml Insuln.pen 30 SQ TIDWMEALS Aspirin 325 Mg Tablet 0.5 Tab PO DAILY Senna-S Tablet (Sennosides/Docusate Sodium) 1 Each Tablet 1 Each PO BID Nyamyc (Nystatin) 15 Gm Powder 15 Gm TP DAILY Culturelle (Lactobacillus Rhamnosus Gg) 1 Each Capsule 1 Each PO BIDWMEALS Lantus Solostar (Insulin Glargine,Hum.rec.anlog) 100 Unit/1 Ml Insuln.pen 45 Unit SQ QHS Hydralazine Hcl 25 Mg Tablet 2 Tab PO TID [facility] Glucosamine-Chondr Tablet (Glucosamine Hcl/Chondr [place] A Na) 1 Each Tablet 2 Each PO DAILY Gabapentin (Gabapentin) 300 Mg Capsule 300 Mg PO HS Gabapentin (Gabapentin) 100 Mg Capsule 200 Mg PO BIDWBKFT/AVE Flonase Allergy Relief (Fluticasone Propionate) 9.9 Ml [place].susp 2 Sprays NS DAILY Elta Seal Moisture Barrier (Zinc Oxide) 114 Gm Cream..g. 114 Gm TP BID Diphenhydramine Hcl 50 Mg Capsule 25 Mg PO Q6HRS PRN Vitamin D3 (Cholecalciferol (Vitamin D3)) 1,000 Unit Tablet 2,000 Unit PO DAILY Atorvastatin Calcium 20 Mg Tablet DAILY Venlafaxine Hcl Er (Venlafaxine Hcl) 150 Mg Cap.er.24h DAILY Furosemide 20 Mg Tablet 40 Mg BID Lisinopril 40 Mg Tablet 40 DAILY Carvedilol 25 Mg Tablet 25 BID Pantoprazole Sodium 40 Mg Tablet.dr DAILY Bupropion Hcl Sr (Bupropion Hcl) 150 Mg Tablet.er 150 BID Vitals/I & O Vital Sign - Last 24 Hours 05/20/18 05/20/18 05/20/18 05/20/18 13:36 14:43 14:55 15:20 Temp 98.8 98.8 Pulse 69 78 Resp 18 20 B/P (MAP) 154/66 139/54 (82) Pulse Ox 96 O2 Delivery Room Air Room Air Room Air 05/20/18 05/20/18 05/20/18 05/20/18 17:10 19:00 19:22 19:22 Temp 98.6 98.6 Pulse 70 76 Resp 20 B/P (MAP) 111/57 146/43 (77) Pulse Ox 98 O2 Delivery Room Air Room Air Room Air 05/20/18 05/20/18 05/20/18 05/20/18 20:00 20:34 20:37 22:55 Temp 99.2 99.2 Pulse 76 71 Resp 20 B/P (MAP) 146/43 154/61 (92) Pulse Ox 97 O2 Delivery Room Air Room Air Room Air 05/20/18 05/21/18 05/21/18 05/21/18 23:11 03:00 06:26 07:00 Temp 98.8 98.1 98.8 98.1 Pulse 84 75 Resp 20 16 B/P (MAP) 146/51 (82) 139/53 (81) Pulse Ox 96 95 97 O2 Delivery Room Air Room Air Room Air Room Air 05/21/18 05/21/18 05/21/18 05/21/18 07:26 07:46 08:00 08:56 Pulse 75 75 Resp 18 B/P (MAP) 139/53 139/53 O2 Delivery Room Air Room Air 05/21/18 05/21/18 11:00 11:25 Temp 97.8 97.8 Pulse 80 Resp 16 B/P (MAP) 127/88 (101) Pulse Ox 94 96 O2 Delivery Room Air Room Air Intake and Output 05/20/18 05/20/18 05/21/18 14:59 22:59 06:59 Intake Total 360 ml 380 ml 500 ml Output Total 450 ml 850 ml 625 ml Balance -90 ml -470 ml -125 ml FAUSTO METCALF MD May 21, 2018 12:59
[2018-05-21 15:00] VITALS: BP 146/50
[2018-05-21 19:00] VITALS: BP 154/64
[2018-05-21] MEDS: ATORVASTATIN CALCIUM 20 MG TABLET PO SCH (21:43)
[2018-05-21] MEDS: INSULIN GLARGINE 300 UNITS/3 ML INSULN.PEN. SQ SCH (22:09)
[2018-05-21 23:00] VITALS: BP 149/42
--- NOTE | 2018-05-21 23:41 | CONS ---
DATE OF CONSULTATION: 05/21/2018 REQUESTING PHYSICIAN: Dr. Sampson. REASON FOR CONSULTATION: Elevated sedimentation rate and pneumonia and leukocytosis. HISTORY OF PRESENT ILLNESS: This is a 72-year-old gentleman with morbid obesity who also has multiple medical problems who came in with multiple falls. He says he was just walking and the legs gave out and has had multiple falls. The patient was found to have a right big toe ulcer, which is unclear whether the ortho cleaned it out as it was a cut callus and now it is a clean ulcer, it is not deep. The patient also had knee pain and knee injection with steroids was done by ortho, Dr. Bourne. The patient is feeling much better. He does have a cough, but denies any shortness of breath. Denies any fever. He does have leukocytosis, although when he came in, he had normal white count. This leukocytosis is likely related to the steroid injection he got in the knee. The patient's sed rate is 140, 130, more than 130. The patient is receiving vancomycin and Levaquin and consult has been requested. PAST MEDICAL HISTORY: Positive for morbid obesity, diabetes mellitus, hypertension, osteoarthritis. 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 SOCIAL HISTORY: Negative for smoking, alcohol, illicit drug use. ALLERGIES: Listed as ALLERGIC TO CEFUROXIME, PIPERACILLIN and TAZOBACTAM, does not know what happen with them. REVIEW OF SYSTEMS: As per HPI, all other systems reviewed are negative. CURRENT MEDICATIONS: Reviewed. PHYSICAL EXAMINATION: GENERAL: Alert and oriented gentleman, not in distress. VITAL SIGNS: Stable, afebrile. HEENT: NAD. NECK: Supple, no JVP, no lymphadenopathy. LUNGS: Clear. HEART: S1, S2 regular. ABDOMEN: Benign. EXTREMITIES: No edema or cyanosis. The patient has a clean ulcer on the right big toe. There is a small superficial tract into the TMA on the left leg. No signs of infection. Knee has been feeling better he says. SKIN: Rest of the skin exam is unremarkable. The patient may have some yeast infection in the pannus. NEUROLOGIC: Alert, awake and appropriate. No focal neurologic deficit. LABORATORY DATA: White count is 13.3. Sed rate is more than 130. BUN and creatinine 34 and 1.4. His urinalysis unremarkable. His influenza screen was negative. Chest CT showed possible atelectasis versus infiltrate in left lower lobe. My personal review on a chest x-ray, it is clean. IMPRESSION: 1. Leukocytosis secondary to steroid injection in the knee. 2. Frequent falls, may need to consider doing a CT head to rule out any subdural hematoma. 3. Osteoarthritis with knee pain and steroid injection done, minor skin breakdown on the right big toe. 4. Diabetes. 5. Hypertension. 6. Obesity. 7. Congestive heart failure. RECOMMENDATIONS: We will discontinue vancomycin. Change Levaquin to p.o. for another 5 more days. The patient can be discharged from the infectious disease standpoint of view. The patient needs to have a repeat sed rate done outpatient in about 2 weeks or so. If it is persistently still high, then he may need further workup. Also, consider doing a CT head. Thank you very much, Dr. Sampson, for giving me the opportunity to participate in this patient's care. SUJEY JEAN MD DR: LOUIE/domitila JOB#: [id number] / [id number]
[2018-05-22 03:00] VITALS: BP 144/46
[2018-05-22] MEDS: oxyCODONE IR 5 MG TABLET PO PRN (03:53)
[2018-05-22] MEDS: IPRATRPIUM/ALBUTEROL 0.5/2.5MG 3 ML NEBU. NEB SCH ×3 (04:00→11:38)
[2018-05-22] MEDS: DICLOFENAC SODIUM 1% TOPICAL GEL 100GM TUBE. TP SCH (04:52)
[2018-05-22] MEDS: PANTOPRAZOLE 40 MG TABLET.DR. PO SCH (05:53)
[2018-05-22] MEDS: HEPARIN for SUB-Q USE 5,000 UNIT/ML VIAL. SQ SCH ×2 (05:59→14:49)
[2018-05-22 07:00] VITALS: BP 168/59
[2018-05-22] MEDS: BUDESONIDE 0.5 MG/2 ML NEBU. NEB SCH (07:19)
[2018-05-22] MEDS: CARVEDILOL 12.5 MG TABLET. PO SCH (07:57)
[2018-05-22] MEDS: INSULIN LISPRO 300 UNITS/3 ML INSULN.PEN. SQ SCH ×4 (08:04→11:58)
--- NOTE | 2018-05-22 08:31 | PDOC ---
Infectious Disease Note Subjective Subjective pt is feeling good ROS ROS no n/v/d/sob Vital Sign Vital Signs Vital Signs Date Time Temp Pulse Resp B/P (MAP) Pulse Ox O2 Delivery O2 Flow Rate FiO2 05/22/18 07:57 68 168/59 05/22/18 07:21 95 Room Air 05/22/18 07:00 98.8 18 98.8 Physical Exam PHYSICAL EXAM GENERAL: Alert and oriented gentleman, not in distress. VITAL SIGNS: Stable, afebrile. HEENT: NAD. NECK: Supple, no JVP, no lymphadenopathy. LUNGS: Clear. HEART: S1, S2 regular. ABDOMEN: Benign. EXTREMITIES: No edema or cyanosis. The patient has a clean ulcer on the right big toe. There is a small superficial tract into the TMA on the left leg. No signs of infection. Knee has been feeling better he says. SKIN: Rest of the skin exam is unremarkable. The patient may have some yeast infection in the pannus. NEUROLOGIC: Alert, awake and appropriate. No focal neurologic deficit. Labs Lab Laboratory Tests Test 05/21/18 11:44 05/21/18 16:49 05/21/18 20:49 Glucose (Fingerstick) 141 mg/dL (70-99) 120 mg/dL (70-99) 142 mg/dL (70-99) Objective Assessment S/P falls Leukocytosis Knee pain Rt toe ulcer Obesity ? Pneumonia Plan Plan of Care d/c vanc d/c to rehab on po levaquin ok repeat sed rate out pt after about 2 wks SUJEY JEAN MD May 22, 2018 08:31
[2018-05-22] MEDS: MINERAL OIL/PETROLATUM TOPICAL CREAM 113GM JAR. TP SCH ×2 (08:57→14:50)
[2018-05-22] MEDS: FLUTICASONE 50MCG/NASAL SPRAY 16GM BOTTLE. NS SCH (08:57)
[2018-05-22] MEDS: POLYETHYLENE GLYCOL 3350 17 GM PACKET. PO SCH (08:57)
[2018-05-22] MEDS: ZINC OXIDE 20% TOPICAL OINTMENT 28GM TUBE. TP SCH (08:57)
[2018-05-22] MEDS: ASPIRIN 325 MG TABLET PO SCH (08:59)
[2018-05-22] MEDS: MULTIVITAMIN with MINERAL TABLET. PO SCH (08:59)
[2018-05-22] MEDS: LACTOBACILLUS RHAMNOSUS GG 1 CAPSULE. PO SCH (08:59)
[2018-05-22] MEDS: IRON POLYSACCHARIDE COMPLEX 150 MG CAPSULE PO SCH (08:59)
[2018-05-22] MEDS: NYSTATIN TOPICAL POWDER 15GM BOTTLE. TP SCH (08:59)
[2018-05-22] MEDS: CHOLECALCIFEROL (VITAMIN D3) 1,000 UNIT TABLET PO SCH (08:59)
[2018-05-22] MEDS: SENNOSIDES/DOCUSATE 8.6/50MG TABLET. PO SCH (08:59)
--- NOTE | 2018-05-22 09:19 | PDOC ---
PROGRESS NOTES Subjective Subjective He still admits right knee and neck pain. Objective Objective Vital Signs Date Time Temp Pulse Resp B/P (MAP) Pulse Ox O2 Delivery O2 Flow Rate FiO2 05/22/18 09:00 68 168/59 05/22/18 07:21 95 Room Air 05/22/18 07:00 98.8 18 98.8 Intake and Output 05/22/18 07:00 Intake Total 1800 ml Output Total 1870 ml Balance -70 ml Intake Oral 1800 ml Output Urine Total 1870 ml # Voids 4 Physical Exam Physical Exam He is sitting up in bedside recliner and he continues to require assistance with bed mobility,transfers and walking with roller walker for short distances and with self care. He is participating with therapy. Assessment Assessment Problems Medical Problems: (1) Chronic knee pain Status: Acute Plan Plan of Care I am not sure how he can be taken care at home by his . He has to go to a longterm if his insurance does not cover SNF stay. Comment Review of Relevant I have reviewed the following items minnie (where applicable) has been applied. Labs Laboratory Tests Test 05/20/18 11:36 05/20/18 16:50 05/20/18 17:22 05/20/18 17:38 Glucose (Fingerstick) 95 mg/dL (70-99) 41 mg/dL (70-99) 41 mg/dL (70-99) 133 mg/dL (70-99) Test 05/20/18 20:34 05/21/18 03:55 05/21/18 07:29 05/21/18 11:44 Glucose (Fingerstick) 107 mg/dL (70-99) 162 mg/dL (70-99) 141 mg/dL (70-99) White Blood Count 13.3 x10^3/uL (4.0-11.0) Red Blood Count 3.17 x10^6/uL (4.30-5.70) Hemoglobin 9.0 g/dL (13.0-17.5) Hematocrit 28.0 % (39.0-53.0) Mean Corpuscular Volume 88 fL (79-100) Mean Corpuscular Hemoglobin 28 pg (25-35) Mean Corpuscular Hemoglobin Concent 32 g/dL (31-37) Red Cell Distribution Width 14.0 % (11.5-14.5) Platelet Count 278 x10^3/uL (140-400) Neutrophils (%) (Auto) 80 % (31-73) Lymphocytes (%) (Auto) 8 % (24-48) Monocytes (%) (Auto) 11 % (0-9) Eosinophils (%) (Auto) 2 % (0-3) Basophils (%) (Auto) 0 % (0-3) Neutrophils # (Auto) 10.6 x10^3uL (1.8-7.7) Lymphocytes # (Auto) 1.0 x10^3/uL (1.0-4.8) Monocytes # (Auto) 1.4 x10^3/uL (0.0-1.1) Eosinophils # (Auto) 0.2 x10^3/uL (0.0-0.7) Basophils # (Auto) 0.0 x10^3/uL (0.0-0.2) Sodium Level 141 mmol/L (136-145) Potassium Level 4.4 mmol/L (3.5-5.1) Chloride Level 105 mmol/L (98-107) Carbon Dioxide Level 28 mmol/L (21-32) Anion Gap 8 (6-14) Blood Urea Nitrogen 34 mg/dL (8-26) Creatinine 1.4 mg/dL (0.7-1.3) Estimated GFR (Cockcroft-Gault) 50.1 Glucose Level 146 mg/dL (70-99) Calcium Level 8.9 mg/dL (8.5-10.1) Test 05/21/18 16:49 05/21/18 20:49 Glucose (Fingerstick) 120 mg/dL (70-99) 142 mg/dL (70-99) Laboratory Tests Test 05/21/18 11:44 05/21/18 16:49 05/21/18 20:49 Glucose (Fingerstick) 141 mg/dL (70-99) 120 mg/dL (70-99) 142 mg/dL (70-99) Medications Current Medications Ibuprofen (Motrin) 400 mg 1X ONCE PO Last administered on 05/15/18at 10:58; Start 05/15/18 at 10:30; Stop 05/15/18 at 10:31; Status DC Ondansetron HCl (Zofran) 4 mg PRN Q4HRS PRN IV NAUSEA/VOMITING; Start 05/15/18 at 14:15 Zolpidem Tartrate (Ambien) 5 mg PRN QHS PRN PO INSOMNIA Last administered on 23:29; Start 05/15/18 at 14:15; Stop 05/17/18 at 23:35; Status DC Acetaminophen (Tylenol) 650 mg PRN Q4HRS PRN PO TEMP OVER 100.4F OR MILD PAIN Last administered on 05/16/18 23:29; Start 05/15/18 at 14:15 Clonidine HCl (Catapres) 0.1 mg PRN Q6HRS PRN PO SBP>160 OR DBP>90; Start at 14:15 Albuterol/ Ipratropium (Duoneb) 3 ml Q4HRS NEB Last administered on 05/22/18 07:19; Start 05/15/18 at 16:00 Guaifenesin (Robitussin) 200 mg PRN Q4HRS PRN PO COUGH, 2nd CHOICE Last administered on 05/21/18 06:29; Start 05/15/18 at 14:15 Lorazepam (Ativan) 0.5 mg PRN Q4HRS PRN PO ANXIETY / AGITATION Last administered on 05/16/18 23:29; Start 05/15/18 at 14:15; Stop 05/19/18 at 11:14; Status DC Enoxaparin Sodium (Lovenox 60mg Syringe) 60 mg Q12HR SQ ; Start 05/15/18 at 21:00 ; Status Cancel Aspirin (Jacquelin Aspirin) 162.5 mg DAILY PO Last administered on 05/22/18 08:59 ; Start 05/15/18 at 15:30 Atorvastatin Calcium (Lipitor) 20 mg QHS PO Last administered on 05/21/18 21: 43; Start 05/15/18 at 21:00 Bupropion HCl (Wellbutrin Sr) 150 mg BID PO Last administered on 05/18/18 08: 07; Start 05/15/18 at 21:00; Stop 05/18/18 at 18:14; Status DC Vitamin D (Vitamin D3) 2,000 unit DAILY PO Last administered on 05/22/18 08:59 ; Start 05/15/18 at 15:30 Furosemide (Lasix) 40 mg BID94 PO Last administered on 05/15/18 17:33; Start at 16:00; Stop 05/16/18 at 10:55; Status DC Gabapentin (Neurontin) 200 mg BIDWBKFT/AVE PO Last administered on 05/18/18 12 :44; Start 05/16/18 at 08:00; Stop 05/18/18 at 16:18; Status DC Gabapentin (Neurontin) 300 mg HS PO Last administered on 05/17/18 22:07; Start 05/15/18 at 21:00; Stop 05/19/18 at 11:14; Status DC Insulin Glargine (Lantus) 45 units QHS SQ Last administered on 05/21/18 22:09 ; Start 05/15/18 at 21:00 Lisinopril (Prinivil) 40 mg DAILY PO Last administered on 05/15/18 17:37; Start 05/15/18 at 15:30; Stop 05/16/18 at 10:55; Status DC Nystatin (Nystop) 15 ritu DAILY TP Last administered on 05/22/18 08:59; Start 05/16/18 at 09:00 Oxycodone HCl (Roxicodone) 10 mg PRN Q4HRS PRN PO MODERATE TO SEVERE PAIN Last administered on 05/22/18 03:53; Start 05/15/18 at 14:15 Pantoprazole Sodium (Protonix) 40 mg DAILYAC PO Last administered on 05/22/18 05:53; Start 05/15/18 at 15:30 Senna/Docusate Sodium (Senna Plus) 1 tab BID PO Last administered on 05/22/18 08:59; Start 05/15/18 at 21:00 Carvedilol (Coreg) 25 mg BIDWMEALS PO Last administered on 05/22/18 07:57; Start 05/15/18 at 17:00 Diphenhydramine HCl (Benadryl) 25 mg PRN Q6HRS PRN PO ALLERGIES; Start 05/15/18 at 14:30; Stop 05/18/18 at 18:14; Status DC Fluticasone Propionate (Flonase) 2 spray DAILY NS Last administered on 08:57; Start 05/16/18 at 09:00 Non-Formulary Medication (Glucosamine Hcl/ Chondr [place] A Na ([facility] Glucosamine- Chondr Tablet)) 2 each DAILY PO ; Start 05/16/18 at 09:00; Status UNV Hydralazine HCl (Apresoline) 50 mg TID PO Last administered on 05/22/18 09:00 ; Start 05/15/18 at 15:30 Insulin Human Lispro (HumaLOG) 30 units TIDWMEALS SQ Last administered on 08:04; Start 05/15/18 at 17:00 Lactobacillus Rhamnosus (Culturelle) 1 cap BID PO Last administered on 08:59; Start 05/15/18 at 21:00 Meloxicam (Mobic) 7.5 mg DAILY PO Last administered on 05/18/18 08:05; Start 05/15/18 at 15:30; Stop 05/18/18 at 16:18; Status DC Zinc Oxide (Zinc Oxide 20% Topical) 1 ritu BID TP Last administered on 08:57; Start 05/15/18 at 21:00 Ondansetron HCl (Zofran) 4 mg PRN Q8HRS PRN IV NAUSEA/VOMITING; Start 05/15/18 at 14:30; Stop 05/16/18 at 14:29; Status DC Acetaminophen (Tylenol) 650 mg PRN Q4HRS PRN PO FEVER; Start 05/15/18 at 14:30; Stop 05/16/18 at 14:29; Status DC Morphine Sulfate (Morphine Sulfate) 2 mg PRN Q2HR PRN IV PAIN Last administered on 05/16/18 08:48; Start 05/15/18 at 15:45 Heparin Sodium (Porcine) (Heparin Sodium) 5,000 unit Q8HRS SQ Last administered on 05/22/18 05:59; Start 05/15/18 at 22:00 Methylprednisolone Acetate (DEPO-Medrol 80MG VIAL) 80 mg 1X ONCE INJ Last administered on 05/17/18 08:49; Start 05/17/18 at 08:15; Stop 05/17/18 at 08:16 ; Status DC Lidocaine HCl (Xylocaine-Mpf 1% 2ml Vial) 2 ml 1X ONCE INJ Last administered on 3/10/19at 08:50; Start 05/17/18 at 08:00; Stop 05/17/18 at 08:01; Status DC Budesonide (Pulmicort) 0.5 mg RTBID NEB Last administered on 05/22/18at 07:19; Start 05/17/18 at 20:00 Albuterol Sulfate (Ventolin Neb Soln) 2.5 mg PRN Q4HRS PRN NEB SHORTNESS OF BREATH; Start 05/17/18 at 08:30 Guaifenesin (Robitussin Dm) 10 ml PRN Q6HRS PRN PO COUGH, 1st CHOICE Last administered on 05/18/18at 21:24; Start 05/17/18 at 08:30 Sodium Chloride 1,000 ml @ 75 mls/hr [id number] IV Last administered on at 16:08; Start 05/18/18 at 00:30; Stop 05/19/18 at 11:14; Status DC Levofloxacin/ Dextrose 50 ml @ 50 mls/hr Q24H IV Last administered on at 00:45; Start 05/18/18 at 00:30; Stop 05/18/18 at 02:00; Status DC Vancomycin HCl (Vanco Per Pharmacy) 1 each PRN DAILY PRN MC SEE COMMENTS Last administered on 05/20/18at 14:05; Start 05/18/18 at 00:30; Stop 05/21/18 at 09:53 ; Status DC Vancomycin HCl 2 gm/Sodium Chloride 500 ml @ 250 mls/hr 1X ONCE IV Last administered on 05/18/18at 02:15; Start 05/18/18 at 01:00; Stop 05/18/18 at 02:59 ; Status DC Levofloxacin/ Dextrose 50 ml @ 50 mls/hr Q24H IV ; Start 05/18/18 at 22:00; Stop 05/18/18 at 22:00; Status DC Insulin Human Lispro (HumaLOG) 0-7 UNITS TIDWMEALS SQ Last administered on 05/22at 08:04; Start 05/18/18 at 09:30 Dextrose (Dextrose 50%-Water Syringe) 12.5 gm PRN Q15MIN PRN IV SEE COMMENTS Last administered on 05/20/18at 17:26; Start 05/18/18 at 09:30 Levofloxacin/ Dextrose 100 ml @ 100 mls/hr Q24H IV Last administered on at 20:36; Start 05/18/18 at 21:00; Stop 05/21/18 at 09:54; Status DC Vancomycin HCl 2 gm/Sodium Chloride 500 ml @ 250 mls/hr Q18H IV Last administered on 05/21/18at 02:21; Start 05/18/18 at 20:00; Stop 05/21/18 at 09:53 ; Status DC Vancomycin HCl (Vancomycin Trough Level) 1 each 1X ONCE MC Last administered on 05/19/18at 13:30; Start 05/19/18 at 13:30; Stop 05/19/18 at 13:31; Status DC Multi-Ingred Cream/Lotion/Oil/ Oint (Hydrocerin Cream) 1 ritu QID TP Last administered on 05/22/18at 08:57; Start 05/18/18 at 12:00 Polyethylene Glycol (miraLAX PACKET) 17 gm 1X ONCE PO Last administered on 01/26at 12:00; Start 05/18/18 at 12:00; Stop 05/18/18 at 12:01; Status DC Polyethylene Glycol (miraLAX PACKET) 17 gm DAILY PO Last administered on 08:57; Start 05/19/18 at 09:00 Magnesium Hydroxide (Milk Of Magnesia) 2,400 mg 1X ONCE PO Last administered on 05/18/18at 12:44; Start 05/18/18 at 12:00; Stop 05/18/18 at 12:01; Status DC Magnesium Hydroxide (Milk Of Magnesia) 2,400 mg PRN DAILY PRN PO CONSTIPATION; Start 05/18/18 at 11:30 Bisacodyl (Dulcolax Supp) 10 mg PRN DAILY PRN GA CONSTIPATION; Start 05/18/18 at 11:30 Multivitamins (Thera M Plus) 1 tab DAILY PO Last administered on 05/22/18at 08: 59; Start 05/18/18 at 14:00 Diclofenac Sodium (Voltaren) 1 ritu BID TP Last administered on 05/22/18at 04:52 ; Start 05/18/18 at 21:00 Methylprednisolone Acetate (DEPO-Medrol 40MG VIAL) 40 mg 1X ONCE IM ; Start 01/26 at 16:15; Stop 05/18/18 at 16:20; Status DC Bupivacaine HCl (Sensorcaine-Mpf 0.25%) 10 ml 1X ONCE IJ ; Start 05/18/18 at 16 :15; Stop 05/18/18 at 16:20; Status DC Polysaccharide Iron Complex (Niferex 150) 150 mg BID PO Last administered on at 08:59; Start 05/18/18 at 21:00 Throat Lozenges (Cepacol Sore Throat Lozenge) 1 saran PRN Q2HRS PRN PO SORE THROAT Last administered on 05/20/18at 02:33; Start 05/19/18 at 16:45 Levofloxacin (Levaquin) 500 mg DAILY06 PO Last administered on 05/22/18at 05:53 ; Start 05/22/18 at 06:00 Active Scripts Active Thera-M Tablet (Multivits,Ca,Minerals/Iron/Fa) 1 Each Tablet 1 Tab PO DAILY MDD 1 Budesonide 0.5 Mg/2 Ml Ampul.neb 0.5 Mg NEB RTBID MDD 1 Guaifenesin Dm Syrup (Guaifenesin/Dextromethorphan) 5 Ml Syrup 10 Ml PO PRN Q6HRS PRN MDD 1 Proair Hfa (Albuterol Sulfate) 8.5 Gm Hfa.aer.ad 2.5 Mg NEB PRN Q4HRS PRN MDD 1 Poly-Iron (Iron Polysaccharides Complex) 150 Mg Capsule 150 Mg PO BID MDD 1 Levaquin (Levofloxacin) 500 Mg Tablet 500 Mg PO DAILY06 MDD 1 5 Days Oxycodone Hcl Immed.release (Oxycodone Hcl) 5 Mg Tablet 10 Mg PO PRN Q4HRS PRN MDD 1 Meloxicam 7.5 Mg Tablet 7.5 Mg PO DAILY Reported Novolog Flexpen (Insulin Aspart) 100 Unit/1 Ml Insuln.pen 30 SQ TIDWMEALS Aspirin 325 Mg Tablet 0.5 Tab PO DAILY Senna-S Tablet (Sennosides/Docusate Sodium) 1 Each Tablet 1 Each PO BID Nyamyc (Nystatin) 15 Gm Powder 15 Gm TP DAILY Culturelle (Lactobacillus Rhamnosus Gg) 1 Each Capsule 1 Each PO BIDWMEALS Lantus Solostar (Insulin Glargine,Hum.rec.anlog) 100 Unit/1 Ml Insuln.pen 45 Unit SQ QHS Hydralazine Hcl 25 Mg Tablet 2 Tab PO TID [facility]vs Glucosamine-Chondr Tablet (Glucosamine Hcl/Chondr [place] A Na) 1 Each Tablet 2 Each PO DAILY Gabapentin (Gabapentin) 300 Mg Capsule 300 Mg PO HS Gabapentin (Gabapentin) 100 Mg Capsule 200 Mg PO BIDWBKFT/AVE Flonase Allergy Relief (Fluticasone Propionate) 9.9 Ml [place].susp 2 Sprays NS DAILY Elta Seal Moisture Barrier (Zinc Oxide) 114 Gm Cream..g. 114 Gm TP BID Diphenhydramine Hcl 50 Mg Capsule 25 Mg PO Q6HRS PRN Vitamin D3 (Cholecalciferol (Vitamin D3)) 1,000 Unit Tablet 2,000 Unit PO DAILY Atorvastatin Calcium 20 Mg Tablet DAILY Venlafaxine Hcl Er (Venlafaxine Hcl) 150 Mg Cap.er.24h DAILY Furosemide 20 Mg Tablet 40 Mg BID Lisinopril 40 Mg Tablet 40 DAILY Carvedilol 25 Mg Tablet 25 BID Pantoprazole Sodium 40 Mg Tablet.dr DAILY Bupropion Hcl Sr (Bupropion Hcl) 150 Mg Tablet.er 150 BID Vitals/I & O Vital Sign - Last 24 Hours 05/21/18 05/21/18 05/21/18 05/21/18 11:00 11:25 14:18 14:24 Temp 97.8 97.8 Pulse 80 78 Resp 16 20 B/P (MAP) 127/88 (101) 143/63 Pulse Ox 94 96 O2 Delivery Room Air Room Air Room Air 05/21/18 05/21/18 05/21/18 05/21/18 14:46 15:00 15:24 16:53 Temp 98.1 98.1 Pulse 80 80 Resp 16 18 B/P (MAP) 146/50 (82) 146/50 Pulse Ox 97 97 O2 Delivery Room Air Room Air 05/21/18 05/21/18 05/21/18 05/21/18 19:00 19:30 19:31 20:15 Temp 99.3 99.3 Pulse 79 Resp 18 B/P (MAP) 154/64 (94) Pulse Ox 96 96 96 O2 Delivery Room Air Room Air Room Air Room Air 05/21/18 05/21/18 05/21/18 05/22/18 21:44 23:00 23:21 03:00 Temp 99.7 98.4 99.7 98.4 Pulse 79 79 78 Resp 18 18 B/P (MAP) 154/64 149/42 (77) 144/46 (78) Pulse Ox 97 96 94 O2 Delivery Room Air Room Air Room Air 05/22/18 05/22/18 05/22/18 05/22/18 03:53 04:53 07:00 07:21 Temp 98.8 98.8 Pulse 68 Resp 18 B/P (MAP) 168/59 (95) Pulse Ox 95 95 O2 Delivery Room Air Room Air Room Air Room Air 05/22/18 05/22/18 07:57 09:00 Pulse 68 68 B/P (MAP) 168/59 168/59 Intake and Output 05/21/18 05/21/18 05/22/18 15:00 23:00 07:00 Intake Total 1800 ml Output Total 670 ml 600 ml 600 ml Balance -670 ml -600 ml 1200 ml FAUSTO METCALF MD May 22, 2018 09:19
--- NOTE | 2018-05-22 09:29 | PDOC ---
Infectious Disease Note Subjective Subjective no n/v/d/sob sleepy Vital Sign Vital Signs Vital Signs Date Time Temp Pulse Resp B/P (MAP) Pulse Ox O2 Delivery O2 Flow Rate FiO2 05/22/18 09:00 68 168/59 05/22/18 07:21 95 Room Air 05/22/18 07:00 98.8 18 98.8 Physical Exam PHYSICAL EXAM GENERAL: Alert and oriented gentleman, not in distress. VITAL SIGNS: Stable, afebrile. HEENT: NAD. NECK: Supple, no JVP, no lymphadenopathy. LUNGS: Clear. HEART: S1, S2 regular. ABDOMEN: Benign. EXTREMITIES: No edema or cyanosis. The patient has a clean ulcer on the right big toe. There is a small superficial tract into the TMA on the left leg. No signs of infection. Knee has been feeling better he says. SKIN: Rest of the skin exam is unremarkable. The patient may have some yeast infection in the pannus. NEUROLOGIC: Alert, awake and appropriate. No focal neurologic deficit. Labs Lab Laboratory Tests Test 05/21/18 11:44 05/21/18 16:49 05/21/18 20:49 Glucose (Fingerstick) 141 mg/dL (70-99) 120 mg/dL (70-99) 142 mg/dL (70-99) Objective Assessment S/P falls Leukocytosis Knee pain Rt toe ulcer Obesity ? Pneumonia Plan Plan of Care d/c to rehab on po levaquin ok repeat sed rate out pt after about 2 wks SUJEY JEAN MD May 22, 2018 09:29
--- NOTE | 2018-05-22 09:39 | NUR ---
SW following. Discussed with RN. Insurance denied [facility] to go [facility] available before noon today at [phone], option 4 - Dr Messer, reference number [id number]. manager of project management, Selni notified. SW spoke with pt, pt advised he has had home health in the past. SW tried to talk about pt paying out of pocket, however pt began speaking about not needing fancy places and couldn't tell SW if he could afford to pay. Pt reported he makes about $3000 a month in social security/ shelter. SW will continue to follow.
--- NOTE | 2018-05-22 10:47 | PDOC ---
Provider Note Provider Note I did pper to peer with insurance M.D. regarding denial of SNU or rehabilitation needs Did speak with physical therapy, patient is very poor ambulation and needs assistance on getting up. RN verifies this need, patient lives at home and is taking care of his sick -I can't imagine how he will be able to do that Discussed with ID yesterday. From their point of view by mouth Levaquin on chart , rpt sedimentation rate 2 weeks from now and I have provided Rx ESR is greater than 130 with right big toe looks good, no headache. No rash. He denies history known history of RA. ESR is still significant high, If on 2 week repeat still high, then might need further workup Discussed with case management, RN, PT, patient-significant time. peer to peer etc, 45 mins cumulative VENTURA JULES MD May 22, 2018 10:47
[2018-05-22 11:00] VITALS: BP 128/58
--- NOTE | 2018-05-22 11:07 | NUR ---
SW following. After peer to peer for skilled stay, pt is still denied for skilled. [facility] are coming to talk with pt about assisted living. RN notified. Pt has had [facility] in the passed, per previous admission notes. SW referred to [facility] RN to follow with pt. SW will continue to follow.
--- NOTE | 2018-05-22 14:38 | NUR ---
SW contacted Justyna at [facility]. Hanna Wiggins ([phone]) checked for facilities for pt to go to and sent email to SW with list. SW met with pt to discuss this. Pt would likely still have [facility] for PT/OT/RN/ bath aide/ SW. come to visit with him whilst on respite care at a facility. RN notified. SW will continue to follow.
[2018-05-22 14:56] VITALS: BP 160/49
--- NOTE | 2018-05-22 15:38 | NUR ---
JOSE following. Pt will discharge home with [facility] for PT/OT/ RN/ bath aide/ SW. JOSE contacting Adult Protective Services to make a report. RN notified.
--- NOTE | 2018-05-22 15:45 | SNU/HH DC ---
DISCHARGE WITH HOME HEALTH DISCHARGE INFORMATION: Discharge Date: May 21, 2018 Final Diagnosis: Problems Medical Problems: (1) Chronic knee pain Status: Acute Condition on Discharge: Stable CODE STATUS: Code Status: Full HOME HEALTH: Face to Face: I certify this patient is under my care and that I, or a nurse practitioner or physician's real estate administrative assistant working with me, had a face to face encounter that meets the physician face to face encounter requirements with this patient on []. Medical Complications: Falls Physical Therapy For: Evalulation/Treatment Occupational Therapy For: Evaluation/Treatment Speech Language Pathology For: Evaluation/Treatment Home Health Aide For: Self-care CELL ROOM SUPERVISOR For: Community Resources Pt Meets Homebound Status: Unsteady balance w/ amb, POST DISCHARGE ORDERS: Activity Instructions for Disc: Activity as tolerated Weight Bearing Status after Di: As tolerated DIET AFTER DISCHARGE: ADA Wound/Incision Care: Keep wound elevated CHECKS AFTER DISCHARGE: Checks after discharge: Check blood press - daily, Check blood sugar, ac/hs FOLLOW-UP: Follow up with: esr in 2 weeks, IF still very high then further work up warranted (ESR is > Follow Up With: Dr. Arriola [phone] x1 week TREATMENT/EQUIPMENT ORDERS: Adaptive Equipment Issued: Cane, Front wheeled walker CERTIFICATION STATEMENT: Certification Statement: Certification Statement: Based on the above finding, I certify that this patient is confined to the home and needs intermittent intermediate care, physical therapy and/or speech therapy, or continues to need occupational therapy.~ This patient is under my care, and I have initiated the establishment of the plan of care.~ This patient will be followed by myself or a community physician who will periodically review the plan of care. Home Meds Active Scripts Multivits,Ca,Minerals/Iron/Fa (THERA-M TABLET) 1 Each Tablet, 1 TAB PO DAILY for mvi MDD 1, #30 TAB Prov:VENTURA JULES MD 05/21/18 Budesonide (BUDESONIDE) 0.5 Mg/2 Ml Ampul.neb, 0.5 MG NEB RTBID for copd MDD 1, #60 EACH Prov:VENTURA JULES MD 05/21/18 Guaifenesin/Dextromethorphan (GUAIFENESIN DM SYRUP) 5 Ml Syrup, 10 ML PO PRN Q6HRS PRN for COUGH, 1st CHOICE MDD 1, #30 MISC Prov:VENTURA JULES MD 05/21/18 Albuterol Sulfate (Proair Hfa) 8.5 Gm Hfa.aer.ad, 2.5 MG NEB PRN Q4HRS PRN for SHORTNESS OF BREATH MDD 1, #60 INHALER Prov:VENTURA JULES MD 05/21/18 Iron Polysaccharides Complex (POLY-IRON) 150 Mg Capsule, 150 MG PO BID for LOUISE MDD 1, #60 CAP Prov:VENTURA JULES MD 05/21/18 Levofloxacin (LEVAQUIN) 500 Mg Tablet, 500 MG PO DAILY06 for pneumonia MDD 1 for 5 Days, #5 TAB Prov:VENTURA JULES MD 05/21/18 Oxycodone Hcl (OXYCODONE HCL IMMED.RELEASE ) 5 Mg Tablet, 10 MG PO PRN Q4HRS PRN for SEVERE PAIN MDD 1, #20 TAB-CAP Prov:VENTURA JULES MD 05/21/18 Meloxicam (MELOXICAM) 7.5 Mg Tablet, 7.5 MG PO DAILY, #20 TAB Prov:JE BASURTO DO 05/15/18 Reported Medications Insulin Aspart (NOVOLOG FLEXPEN) 100 Unit/1 Ml Insuln.pen, 30 SQ TIDWMEALS, SYR 05/09/16 Aspirin (ASPIRIN) 325 Mg Tablet, 0.5 TAB PO DAILY, #30 TAB 5 Refills 10/25/15 Sennosides/Docusate Sodium (SENNA-S TABLET) 1 Each Tablet, 1 EACH PO BID 10/25/15 Nystatin (NYAMYC) 15 Gm Powder, 15 GM TP DAILY 10/25/15 Lactobacillus Rhamnosus Gg (CULTURELLE) 1 Each Capsule, 1 EACH PO BIDWMEALS 10/25/15 Insulin Glargine,Hum.rec.anlog (LANTUS SOLOSTAR) 100 Unit/1 Ml Insuln.pen, 45 UNIT SQ QHS, #15 ML 3 Refills 10/25/15 Hydralazine Hcl (HYDRALAZINE HCL) 25 Mg Tablet, 2 TAB PO TID, #90 TAB 5 Refills 10/25/15 Glucosamine Hcl/Chondr [place] A Na ([facility] GLUCOSAMINE-CHONDR TABLET) 1 Each Tablet, 2 EACH PO DAILY 10/25/15 Gabapentin (GABAPENTIN ) 300 Mg Capsule, 300 MG PO HS, CAP 10/25/15 Gabapentin (GABAPENTIN ) 100 Mg Capsule, 200 MG PO BIDWBKFT/AVE, CAP 10/25/15 Fluticasone Propionate (Flonase Allergy Relief) 9.9 Ml [place].susp, 2 SPRAYS NS DAILY, BOTTLE 10/25/15 Zinc Oxide (Elta Seal Moisture Barrier) 114 Gm Cream..g., 114 GM TP BID 10/25/15 Diphenhydramine Hcl (DIPHENHYDRAMINE HCL) 50 Mg Capsule, 25 MG PO Q6HRS PRN for ALLERGIES 10/25/15 Cholecalciferol (Vitamin D3) (VITAMIN D3) 1,000 Unit Tablet, 2000 UNIT PO DAILY 10/25/15 Atorvastatin Calcium (ATORVASTATIN CALCIUM) 20 Mg Tablet, DAILY, #90 10/25/15 Venlafaxine Hcl (VENLAFAXINE HCL ER) 150 Mg Cap.er.24h, DAILY, #90 10/25/15 Furosemide (FUROSEMIDE) 20 Mg Tablet, 40 MG BID, #360 10/25/15 Lisinopril (LISINOPRIL) 40 Mg Tablet, 40 DAILY, #90 10/25/15 Carvedilol (CARVEDILOL) 25 Mg Tablet, 25 BID, #14 10/25/15 Pantoprazole Sodium (PANTOPRAZOLE SODIUM) 40 Mg Tablet.dr, DAILY, #90 10/25/15 Bupropion Hcl (BUPROPION HCL SR) 150 Mg Tablet.er, 150 BID, #180 10/25/15 VENTURA JULES MD May 22, 2018 15:45
--- NOTE | 2018-05-22 16:21 | NUR ---
[facility] intake number [id number].
--- NOTE | 2018-05-22 17:00 | NUR ---
Discharge orders placed. Discharge instructions/medications discussed with pt/pt . Demonstrated wound care with . Wound care materials given to . Discussed all prescriptions with pt/pt . Explained Levaquin needs to be filled tonight for dose in the morning. Pt verbalized understanding. IV removed without complications. Pt wheeled out to hospital exit accompanied by this RN, Cristóbal, DANIELITO, and pt . This DIEGO and Cristóbal helped pt into truck. Pt secured into truck.
== END 2018-05-22 17:00 | disposition home health service (06) | DRG 871 ==
LOC: ER 10:07 → 4 NORTH 13:50 → OBSVTOIN 14:00 → 4 NORTH 15:42
PROVIDERS: ADMIT Internal Medicine; ATTEND Internal Medicine
PROC: 3E0U33Z Introduction of Anti-inflammatory into Joints, Percutaneous Approach (ICD-10-PCS; 2018-05-17)
PROC: 3E0U3BZ Introduction of Anesthetic Agent into Joints, Percutaneous Approach (ICD-10-PCS; 2018-05-17)
PROC: 5A09357 Assistance with Respiratory Ventilation, Less than 24 Consecutive Hours, Continuous Positive Airway Pressure (ICD-10-PCS; 2018-05-18)
PROC: 5A09357 Assistance with Respiratory Ventilation, Less than 24 Consecutive Hours, Continuous Positive Airway Pressure (ICD-10-PCS; principal; 2018-05-19)
PROC: 0HBMXZZ Excision of Right Foot Skin, External Approach (ICD-10-PCS; 2018-05-21)
DX: A41.9 Sepsis, unspecified organism (principal); J18.9 Pneumonia, unspecified organism; N17.0 Acute kidney failure with tubular necrosis; Z68.43 Body mass index [BMI] 50.0-59.9, adult; E87.1 Hypo-osmolality and hyponatremia; I13.0 Hypertensive heart and chronic kidney disease with heart failure and stage 1 through stage 4 chronic kidney disease, or unspecified chronic kidney disease; J44.0 Chronic obstructive pulmonary disease with (acute) lower respiratory infection; E66.2 Morbid (severe) obesity with alveolar hypoventilation; N18.4 Chronic kidney disease, stage 4 (severe); E11.621 Type 2 diabetes mellitus with foot ulcer; E11.22 Type 2 diabetes mellitus with diabetic chronic kidney disease; E11.42 Type 2 diabetes mellitus with diabetic polyneuropathy; E11.51 Type 2 diabetes mellitus with diabetic peripheral angiopathy without gangrene; L97.519 Non-pressure chronic ulcer of other part of right foot with unspecified severity; M17.0 Bilateral primary osteoarthritis of knee; D64.9 Anemia, unspecified; E78.5 Hyperlipidemia, unspecified; G89.29 Other chronic pain; I25.10 Atherosclerotic heart disease of native coronary artery without angina pectoris; I50.9 Heart failure, unspecified; M77.30 Calcaneal spur, unspecified foot; M54.5 Low back pain; R29.6 Repeated falls; I87.2 Venous insufficiency (chronic) (peripheral); Z96.653 Presence of artificial knee joint, bilateral; M51.36 Other intervertebral disc degeneration, lumbar region; T38.0X5A Adverse effect of glucocorticoids and synthetic analogues, initial encounter; Y92.89 Other specified places as the place of occurrence of the external cause; Z91.81 History of falling; Z79.4 Long term (current) use of insulin; Z79.51 Long term (current) use of inhaled steroids; Z79.899 Other long term (current) drug therapy; Z82.49 Family history of ischemic heart disease and other diseases of the circulatory system; Z89.432 Acquired absence of left foot; Z88.8 Allergy status to other drugs, medicaments and biological substances; Z88.0 Allergy status to penicillin
CPT/HCPCS: 36415; 36600; 71045; 71250; 72220; 73502; 73562; 73630; 80048; 80053; 80069; 80202; 81001; 82565; 82805; 82962; 83605; 84145; 85007; 85025; 85651; 87804; 94640; 94660; 94760; G0379; J1040; J1644; J1815; J1956; J2270; J3370; J7030; J7040; J7042; J7620; J7626; 97110; 97116; 97530; 97535; 99285-25

== ENCOUNTER → 2018-09-04 | Outpatient (CLI) | payer MEDICARE ==
[~2018-09-04] MED LIST changes: +ALBU2.5V8 NEB; +BUDE0.5A NEB; +GUAI5SYR PO; +IRON150C11 PO; +LEVO500T59 PO; +MELO7.5T29 PO; +MULT1TAB90 PO; -PANT40TA5; +PANT40TA77
--- NOTE | 2018-09-04 16:32 | RAD ---
Ankle-brachial indices. Duplex arterial ultrasound, right lower extremity 09/04/2018 COMPARISON STUDY: None Discussion: Blood pressure measurements were obtained at the arms and ankles bilaterally. Ultrasound evaluation of the major arteries of the right lower extremity were performed including color Doppler imaging spectral analysis FINDINGS: Right brachial pressure: 115 mmHg Left brachial pressure: 108 mmHg Right ankle pressure: 125 mmHg Left ankle pressure: 133 mmHg Right KRYS 1.08, normal Left KRYS 1.23, mildly elevated. There is diffuse atherosclerotic vascular disease noted. Elevated velocities within the right common femoral artery are seen measuring up to 250 cm/s. Profunda artery appears grossly patent. Aliasing is seen throughout the proximal right SFA. Elevated velocities continue into the proximal most right SFA measuring up to 240 cm/s. Elevated velocities are seen within the right mid SFA up to 280 cm/s. Prominent collateral artery appears to be present in the mid thigh. Elevated velocities are seen within the distal femoral artery up to 300 cm/s. Probable Carter's cyst noted in the posterior medial knee. This measures 6.5 x 2.9 x 3.7 cm. Mildly elevated velocities are seen within the popliteal artery. Waveform morphology however the popliteal artery appears to remain biphasic. The anterior tibial artery is nonvisualized. Reconstituted dorsalis pedis artery appears to be present. Posterior tibial artery demonstrates monophasic flow which is nonspecific given other findings. IMPRESSION: 1. Normal right ankle brachial index 2. Elevated velocities within the right common femoral artery and superficial femoral artery possibly reflecting hemodynamically significant stenoses. Possible occlusion of the anterior tibial artery with dorsalis pedis artery reconstitution. Consider CT or conventional angiography for further evaluation. Electronically signed by: Matt Hanson MD (09/04/2018 4:29 PM) [facility]
== END | disposition home or self-care (01) ==
LOC: US 14:38
PROVIDERS: ATTEND Emergency Medicine Undersea and Hyperbaric Medicine
DX: I70.203 Unspecified atherosclerosis of native arteries of extremities, bilateral legs (principal); L97.519 Non-pressure chronic ulcer of other part of right foot with unspecified severity
CPT/HCPCS: 93922; 93926

== ENCOUNTER 2018-10-02 08:08 | Outpatient (CLI) | payer MEDICARE ==
[~2018-10-02] VITALS: Ht 175.3 cm; Wt 164.7 kg
[2018-10-02 08:46] VITALS: BP 151/64
[2018-10-02 08:57] LABS: CALCIUM 9.3 mg/dL (8.5-10.1); CREATININE 2.2 mg/dL (0.7-1.3); GFR 29.7; POTASSIUM 4.4 mmol/L (3.5-5.1)
[2018-10-02 08:59] LABS: BASO # 0.1 x10^3/uL (0.0-0.2); BASO % 1 % (0-3); EOS # 0.2 x10^3/uL (0.0-0.7); EOS % 2 % (0-3); HEMATOCRIT 27.7 % (39.0-53.0); HEMOGLOBIN 9.2 g/dL (13.0-17.5); LYMPH % 9 % (24-48); MEAN CORPUSCULAR HEMOGLOBIN 28 pg (25-35); MEAN CORPUSCULAR HGB CONC 33 g/dL (31-37); MEAN CORPUSCULAR VOLUME 86 fL (79-100); MONO % 10 % (0-9); NEUT # 8.4 x10^3/uL (1.8-7.7); NEUT % 79 % (31-73); PLATELET COUNT 293 x10^3/uL (140-400); RED BLOOD COUNT 3.22 x10^6/uL (4.30-5.70); WHITE BLOOD COUNT 10.6 x10^3/uL (4.0-11.0)
--- NOTE | 2018-10-02 09:35 | NUR ---
Patient came in outpatient for AARO for right foot wound. Unable to complete AARO due to CR elevated. Patient and educated, informed he will need a clearance from nephrology or PCP to have AARO done. Dr. Ana Paula Flower's office at [facility] notified fo labs today, informed that patient is followed by Nephrology for kidney disease and the information will be passed to them.
== END 2018-10-02 09:45 | disposition home or self-care (01) ==
LOC: INTRAD 08:08
PROVIDERS: ATTEND Emergency Medicine Undersea and Hyperbaric Medicine
DX: S81.809A Unspecified open wound, unspecified lower leg, initial encounter (principal); X58.XXXA Exposure to other specified factors, initial encounter; Y93.89 Activity, other specified; Y92.89 Other specified places as the place of occurrence of the external cause; Y99.8 Other external cause status
CPT/HCPCS: 36415; 80048; 85025; 85610

== ENCOUNTER 2018-10-31 22:34 | Inpatient (IN) | payer MEDICARE ==
[~2018-10-31] VITALS: Ht 175.3 cm; Wt 157.2 kg
[2018-10-31 23:09] LABS: BASO % 0 % (0-3); EOS # 0.1 x10^3/uL (0.0-0.7); EOS % 1 % (0-3); HEMATOCRIT 31.2 % (39.0-53.0); HEMOGLOBIN 10.4 g/dL (13.0-17.5); LYMPH # 1.2 x10^3/uL (1.0-4.8); LYMPH % 9 % (24-48); MEAN CORPUSCULAR HEMOGLOBIN 29 pg (25-35); MEAN CORPUSCULAR HGB CONC 33 g/dL (31-37); MEAN CORPUSCULAR VOLUME 86 fL (79-100); MONO # 1.2 x10^3/uL (0.0-1.1); MONO % 10 % (0-9); NEUT # 10.2 x10^3/uL (1.8-7.7); NEUT % 80 % (31-73); PLATELET COUNT 259 x10^3/uL (140-400); RED BLOOD COUNT 3.64 x10^6/uL (4.30-5.70); RED CELL DISTRIBUTION WIDTH 15.2 % (11.5-14.5); WHITE BLOOD COUNT 12.7 x10^3/uL (4.0-11.0)
[2018-10-31] MEDS ORDERED: DEXTROSE 50% 25 GM / 50ML DISP.SYRIN. IV ONE ×2 (23:12→23:15)
[2018-10-31] MEDS ORDERED: IV DEXTROSE 5 %-0.45 % NACL 1,000 ML IV ONE (23:15)
--- NOTE | 2018-10-31 23:17 | PHYS DOC ---
Past Medical History Past Medical History: Diabetes-Type II, Hypertension, Renal Failure, Other Additional Past Medical Histor: morbid obesity, AMPUTATION HALF FOOT. (DANIEL,PAPITO Celeste HVAC MAINTENANCE TECHNICIAN) Past Surgical History: Other Additional Past Surgical Histo: LEFT partial foot amputation, SHOULDER SURGERY (DANIEL,PAPITO Celeste HVAC MAINTENANCE TECHNICIAN) Alcohol Use: None Drug Use: None (DANIEL,PAPITO Celeste HVAC MAINTENANCE TECHNICIAN) Adult General Chief Complaint Chief Complaint: BLOOD SUGAR PROBLEM HPI HPI Patient is a 73 year old male who presents with EMS arrived and patient's blood sugar was 23. They gave him the D10 and he 25 and got up into the 200s. EMS states the patient is noncompliant with his medications. Upon arrival patient is alert and oriented and speaking to staff. Patient's blood sugar is now 65 upon arrival. When patient asked if he took his insulin or diabetes medications he says he thinks he did Remember. When asked what medications he takes he states that he can't remember all the names of them in there are several once. He speaks in full sentences and answers all questions appropriately and follows all commands. PERRLA. Patient states he feels slightly nauseated. Patient denies diarrhea, vomiting, chest pain, shortness of air, dizziness, visual changes, numbness or tingling, weakness. Patient states he thinks he needs to keep juice around the house so he doesn't get like this again. Patient states he has been constipated but denies any kind of abdominal pain. Patient denies any pain at this time. (DANIEL,PAPITO M HVAC MAINTENANCE TECHNICIAN) Review of Systems Review of Systems Constitutional: Denies fever or chills [] Eyes: Denies change in visual acuity, redness, or eye pain [] HENT: Denies nasal congestion or sore throat [] Respiratory: Denies cough or shortness of breath [] Cardiovascular: No additional information not addressed in HPI [] GI: Denies abdominal pain, nausea, vomiting, bloody stools or diarrhea [] : Denies dysuria or hematuria [] Musculoskeletal: Denies back pain or joint pain [] Integument: Denies rash or skin lesions [] Neurologic: Light headedness, Denies headache, focal weakness or sensory changes [] Endocrine: Hypoglycemia. Denies polyuria or polydipsia [] All other systems were reviewed and found to be within normal limits, except as documented in this note. (PAPITO SANCHEZ APRN) Current Medications Current Medications Current Medications Medications (Trade) Dose Ordered Sig/Beatrice Start Time Stop Time Status Last Admin Dose Admin Dextrose (Dextrose 50%-Water Syringe) 25 gm STK-MED ONCE 10/31/18 23:12 10/31/18 23:12 DC Dextrose/Sodium Chloride 1,000 ml @ 100 mls/hr 1X ONCE 10/31/18 23:15 11/01/18 09:14 10/31/18 23:23 100 MLS/HR (JAY BAEZA MD) Allergies Allergies Allergies Coded Allergies Type Severity Reaction Last Updated Verified cefuroxime Allergy Intermediate 05/11/16 Yes piperacillin Adverse Reaction Intermediate RASH 10/25/15 Yes tazobactam Adverse Reaction Intermediate RASH 10/25/15 Yes zolpidem Adverse Reaction Intermediate HALLUCINATIONS 10/25/15 Yes glipizide Adverse Reaction Mild SENSITIVITY TO SUN 10/25/15 Yes Uncoded Allergies Type Severity Reaction Last Updated Verified DUST Allergy Mild SNEEZING 10/25/15 (JAY BAEZA MD) Physical Exam Physical Exam Constitutional: Well developed, well nourished, no acute distress, non-toxic appearance, obese. [] Eyes: PERRLA, EOMI, conjunctiva normal, no discharge. [] Cardiovascular:Heart rate regular rhythm, no murmur [] Lungs & Thorax: Bilateral breath sounds clear to auscultation [] Abdomen: Bowel sounds normal, soft, no tenderness, no masses, no pulsatile masses. [] Skin: Warm, dry, no erythema, no rash. [] Back: No tenderness, no CVA tenderness. [] Extremities: Left lower leg toe amputation. No tenderness, no cyanosis, no clubbing, ROM intact, Bilateral lower extremities 2+ edema. [] Neurologic: Drowsy and oriented X 3, normal motor function, normal sensory function, no focal deficits noted. [] Psychologic: Affect normal, judgement normal, mood normal. [] (PAPITO SANCHEZ APRN) Current Patient Data Vital Signs Vital Signs Date Time Temp Pulse Resp B/P (MAP) Pulse Ox O2 Delivery O2 Flow Rate FiO2 11/01/18 00:00 64 21 140/48 (78) 100 Room Air 10/31/18 22:57 97.3 97.3 (JAY BAEZA MD) Lab Values Laboratory Tests Test 10/31/18 22:51 10/31/18 22:58 10/31/18 23:11 10/31/18 23:36 Glucose (Fingerstick) 66 mg/dL (70-99) L 53 mg/dL (70-99) L 128 mg/dL (70-99) H White Blood Count 12.7 x10^3/uL (4.0-11.0) H Red Blood Count 3.64 x10^6/uL (4.30-5.70) L Hemoglobin 10.4 g/dL (13.0-17.5) L Hematocrit 31.2 % (39.0-53.0) L Mean Corpuscular Volume 86 fL (79-100) Mean Corpuscular Hemoglobin 29 pg (25-35) Mean Corpuscular Hemoglobin Concent 33 g/dL (31-37) Red Cell Distribution Width 15.2 % (11.5-14.5) H Platelet Count 259 x10^3/uL (140-400) Neutrophils (%) (Auto) 80 % (31-73) H Lymphocytes (%) (Auto) 9 % (24-48) L Monocytes (%) (Auto) 10 % (0-9) H Eosinophils (%) (Auto) 1 % (0-3) Basophils (%) (Auto) 0 % (0-3) Neutrophils # (Auto) 10.2 x10^3/uL (1.8-7.7) H Lymphocytes # (Auto) 1.2 x10^3/uL (1.0-4.8) Monocytes # (Auto) 1.2 x10^3/uL (0.0-1.1) H Eosinophils # (Auto) 0.1 x10^3/uL (0.0-0.7) Basophils # (Auto) 0.0 x10^3/uL (0.0-0.2) Sodium Level 137 mmol/L (136-145) Potassium Level 3.4 mmol/L (3.5-5.1) L Chloride Level 102 mmol/L (98-107) Carbon Dioxide Level 22 mmol/L (21-32) Anion Gap 13 (6-14) Blood Urea Nitrogen 49 mg/dL (8-26) H Creatinine 1.8 mg/dL (0.7-1.3) H Estimated GFR (Cockcroft-Gault) 37.4 BUN/Creatinine Ratio 27 (6-20) H Glucose Level 56 mg/dL (70-99) L Calcium Level 8.7 mg/dL (8.5-10.1) Total Bilirubin 0.3 mg/dL (0.2-1.0) Aspartate Amino Transferase (AST) 16 U/L (15-37) Alanine Aminotransferase (ALT) 23 U/L (16-63) Alkaline Phosphatase 110 U/L (46-116) Total Protein 7.4 g/dL (6.4-8.2) Albumin 3.1 g/dL (3.4-5.0) L Albumin/Globulin Ratio 0.7 (1.0-1.7) L Test 11/01/18 00:00 11/01/18 00:05 Glucose (Fingerstick) 126 mg/dL (70-99) H Troponin I Quantitative < 0.017 ng/mL (0.000-0.055) Laboratory Tests 10/31/18 22:58 Laboratory Tests 10/31/18 22:58 (JAY BAEZA MD) Lab Values Laboratory Tests Test 10/31/18 22:51 10/31/18 22:58 10/31/18 23:11 10/31/18 23:36 Glucose (Fingerstick) 66 mg/dL (70-99) L 53 mg/dL (70-99) L 128 mg/dL (70-99) H White Blood Count 12.7 x10^3/uL (4.0-11.0) H Red Blood Count 3.64 x10^6/uL (4.30-5.70) L Hemoglobin 10.4 g/dL (13.0-17.5) L Hematocrit 31.2 % (39.0-53.0) L Mean Corpuscular Volume 86 fL (79-100) Mean Corpuscular Hemoglobin 29 pg (25-35) Mean Corpuscular Hemoglobin Concent 33 g/dL (31-37) Red Cell Distribution Width 15.2 % (11.5-14.5) H Platelet Count 259 x10^3/uL (140-400) Neutrophils (%) (Auto) 80 % (31-73) H Lymphocytes (%) (Auto) 9 % (24-48) L Monocytes (%) (Auto) 10 % (0-9) H Eosinophils (%) (Auto) 1 % (0-3) Basophils (%) (Auto) 0 % (0-3) Neutrophils # (Auto) 10.2 x10^3/uL (1.8-7.7) H Lymphocytes # (Auto) 1.2 x10^3/uL (1.0-4.8) Monocytes # (Auto) 1.2 x10^3/uL (0.0-1.1) H Eosinophils # (Auto) 0.1 x10^3/uL (0.0-0.7) Basophils # (Auto) 0.0 x10^3/uL (0.0-0.2) Sodium Level 137 mmol/L (136-145) Potassium Level 3.4 mmol/L (3.5-5.1) L Chloride Level 102 mmol/L (98-107) Carbon Dioxide Level 22 mmol/L (21-32) Anion Gap 13 (6-14) Blood Urea Nitrogen 49 mg/dL (8-26) H Creatinine 1.8 mg/dL (0.7-1.3) H Estimated GFR (Cockcroft-Gault) 37.4 BUN/Creatinine Ratio 27 (6-20) H Glucose Level 56 mg/dL (70-99) L Calcium Level 8.7 mg/dL (8.5-10.1) Total Bilirubin 0.3 mg/dL (0.2-1.0) Aspartate Amino Transferase (AST) 16 U/L (15-37) Alanine Aminotransferase (ALT) 23 U/L (16-63) Alkaline Phosphatase 110 U/L (46-116) Total Protein 7.4 g/dL (6.4-8.2) Albumin 3.1 g/dL (3.4-5.0) L Albumin/Globulin Ratio 0.7 (1.0-1.7) L Laboratory Tests 10/31/18 22:58 Laboratory Tests 10/31/18 22:58 (PAPITO SANCHEZ APRN) EKG EKG Sinus Rhythm and no STEMI Interpretation Time: [address] Baeza (PAPITO SANCHEZ APRN) Radiology/Procedures Radiology/Procedures [] (PAPITO SANCHEZ APRN) Impressions: [facility] [address] [place] [address] IMAGING REPORT Signed PATIENT: LACI RASCON ACCOUNT: [id number] : 1945 LOCATION: ER AGE: 73 SEX: M EXAM STATUS: PRE ER ORD. PHYSICIAN: PAPITO SANCHEZ APRN REASON: hypoglycemia, ams PROCEDURE: PORTABLE CHEST 1V Exam: Chest one view INDICATION: Hypoglycemia TECHNIQUE: Frontal view of the chest Comparisons: 05/15/2018 FINDINGS: The cardiomediastinal silhouette and pulmonary vessels are within normal limits. The lung and pleural spaces are clear. IMPRESSION: No acute cardiopulmonary process. Electronically signed by: Silvio Severino MD (10/31/2018 11:45 PM) [facility] DICTATED and SIGNED BY: SILVIO SEVERINO MD DATE: 10/31/18 [id number] [place] [address] IMAGING REPORT Signed PATIENT: LACI RASCON ACCOUNT: [id number] : 1945 LOCATION: ER AGE: 73 SEX: M EXAM STATUS: PRE ER ORD. PHYSICIAN: PAPITO SANCHEZ APRN REASON: fall PROCEDURE: CT HEAD WO CONTRAST Exam: CT head INDICATION: Fall TECHNIQUE: Sequential axial images through the head were obtained without the administration of IV contrast. Comparisons: None FINDINGS: No focal parenchymal lesion or hemorrhage is identified. There is no midline shift or sulcal effacement. Mild patchy hypodensity within the periventricular white matter. The ventricular system is within normal limits without compression hydrocephalus. The basal cisterns are well maintained. The visualized portions of the paranasal sinuses and mastoid air cells are well-pneumatized. No acute fractures. IMPRESSION: No sequela for acute traumatic injury. Mild patchy hypodensity in the periventricular white matter which is technically age indeterminate and may represent chronic ischemic change. Exposure: One or more of the following in the visualized dose reduction techniques were utilized for this examination: 1. Automated exposure control 2. Adjustment of the MA and/or KV according to patient size Use of iterative of reconstructive technique Electronically signed by: Silvio Severino MD (10/31/2018 11:38 PM) [facility] [place] DICTATED and SIGNED BY: SILVIO SEVERINO MD DATE: 10/31/18 7125 (PAPITO SANCHEZ APRN) Course & Med Decision Making Course & Med Decision Making Patient is a 73 year old male who presents with EMS arrived and patient's blood sugar was 23. EMS states that the called 911 and stated that the patient passed out and fell over a coffee table. They gave him the D10 and he 25 and got up into the 200s. EMS states the patient is noncompliant with his medications. Upon arrival patient is alert and oriented and speaking to staff. Patient's blood sugar is now 65 upon arrival. When patient asked if he took his insulin or diabetes medications he says he thinks he did but doesn't Remember. When asked what medications he takes he states that he can't remember all the names of them in there are several once. He speaks in full sentences and answers all questions appropriately and follows all commands. PERRLA. Patient states he feels slightly nauseated. Patient denies diarrhea, vomiting, chest pain, s hortness of air, dizziness, visual changes, numbness or tingling, weakness. Patient states he thinks he needs to keep juice around the house so he doesn't get like this again. Patient states he has been constipated but denies any kind of abdominal pain. Patient denies any pain at this time. Patient is currently drinking orange juice in the room. Lungs are clear to auscultation all lobes. Afebrile. 2+ peripheral edema. Skin pink warm and dry. Mucus Membranes are moist. Patient denies hitting his head or head pain, neck pain, back pain, extremity pain, abdominal pain. Patient has no focal spinal tenderness to cervical, thoracic, lumbar spine. No bruising or deformity seen to the patients head. No lacerations or abrasions. 2300: Patient is arousalable but seems very sleepy. Patient's blood sugar now down to 53. Patient is given one amp of D50 and then started D5 1/2NS at 100ml/hr. Patient given milk to drink. Patient blood sugar is up to 128 after this is given. I have ordered Q1h blood glucoses. CT head and chest have no acute findings. 0000: Patient blood sugar recheck is 126. Patient sleeping but easily arousable. Patient's medications he is currently on aspirin, atorvastatin, budesonide, coronary, vitamin D 3, Lasix, NovoLog, Lantus, iron, lisinopril, meloxicam, multivitamin, senna, nystatin, glucosamine. Patient's past medical history is anemia, diabetes type 2, CK D, DDD, DJD, obesity, Atelectasis, half of left foot amputation. I have admitted this patient to hospitalist and reported this patient off to Dr. Baeza. (PAPITO SANCHEZ APRN) Course & Med Decision Making Staff Physician Addendum: I was working in the ER during the course of this patient's visit. I was available for consultation as needed, but I was not directly involved in the care of this patient. I discussed with Dr. Aguilera at 5:30 AM (JAY BAEZA MD) Dragon Disclaimer Dragon Disclaimer This electronic medical record was generated, in whole or in part, using a voice recognition dictation system. (PAPITO SANCHEZ APRN) Departure Departure Impression: Primary Impression: Hypoglycemia Disposition: ADMITTED INPATIENT Admitting Physician: JACKELYN (PAPITO SANCHEZ APRN) Condition: STABLE Referrals: MARCIAL MEJIA MD (PCP) PAPITO SANCHEZ APRN Oct 31, 2018 23:17 JAY BAEZA MD Nov 01, 2018 05:33
[2018-10-31 23:18] LABS: CALCIUM 8.7 mg/dL (8.5-10.1); CREATININE 1.8 mg/dL (0.7-1.3); GFR 37.4; POTASSIUM 3.4 mmol/L (3.5-5.1)
[2018-10-31 23:23] LABS: ALBUMIN 3.1 g/dL (3.4-5.0); ALBUMIN/GLOBULIN RATIO 0.7 (1.0-1.7); TOTAL BILIRUBIN 0.3 mg/dL (0.2-1.0); TOTAL PROTEIN 7.4 g/dL (6.4-8.2)
--- NOTE | 2018-10-31 23:41 | RAD ---
Exam: CT head INDICATION: Fall TECHNIQUE: Sequential axial images through the head were obtained without the administration of IV contrast. Comparisons: None FINDINGS: No focal parenchymal lesion or hemorrhage is identified. There is no midline shift or sulcal effacement. Mild patchy hypodensity within the periventricular white matter. The ventricular system is within normal limits without compression hydrocephalus. The basal cisterns are well maintained. The visualized portions of the paranasal sinuses and mastoid air cells are well-pneumatized. No acute fractures. IMPRESSION: No sequela for acute traumatic injury. Mild patchy hypodensity in the periventricular white matter which is technically age indeterminate and may represent chronic ischemic change. Exposure: One or more of the following in the visualized dose reduction techniques were utilized for this examination: 1. Automated exposure control 2. Adjustment of the MA and/or KV according to patient size Use of iterative of reconstructive technique Electronically signed by: Silvio Damon MD (10/31/2018 11:38 PM) [facility]
--- NOTE | 2018-10-31 23:48 | RAD ---
Exam: Chest one view INDICATION: Hypoglycemia TECHNIQUE: Frontal view of the chest Comparisons: 05/15/2018 FINDINGS: The cardiomediastinal silhouette and pulmonary vessels are within normal limits. The lung and pleural spaces are clear. IMPRESSION: No acute cardiopulmonary process. Electronically signed by: Silvio Damon MD (10/31/2018 11:45 PM) [facility]
[2018-11-01] VITALS (9 sets, daily range): BP systolic 82–181; BP diastolic 34–76
[2018-11-01] MEDS ORDERED: ONDANSETRON PF 4 MG/2 ML VIAL. IV PRN (00:15)
[2018-11-01] MEDS ORDERED: ACETAMINOPHEN 325 MG TABLET. PO PRN (00:15)
[2018-11-01 00:29] LABS: BILIRUBIN,URINE NEGATIVE (NEG); CLARITY,URINE CLEAR; COLOR,URINE YELLOW; NITRITE,URINE NEGATIVE (NEG); PROTEIN,URINE NEGATIVE (NEG-TRACE); UROBILINOGEN,URINE 0.2 mg/dL (0.2 mg/dL)
[2018-11-01 00:58] LABS: BACTERIA,URINE 0 /HPF (0-FEW); HYALINE CASTS, URINE FEW /HPF; RBC,URINE OCC /HPF (0-2); SQUAMOUS EPITHELIAL CELL,UR FEW /LPF; WBC,URINE OCC /HPF (0-4)
--- NOTE | 2018-11-01 04:41 | NUR ---
Patient arrived to unit at 0130 accompanied by ED nurse. No complaints of pain at this time. Patient is alert and very talkative. D5 1/2 NS running at 100 ml/hr. VS stable, assessment complete. Patient stated that he was just recently discharged from here approx 2 weeks ago for the same thing. Pt stated " I felt fine and then woke up in my house with EMS all around me, and found out that my Blood sugar had dropped and i fell and busted the coffee table." Resting comfortably on RA. Patient is a current wound care center patient- right foot, 2nd toe ulcer- photos taken and wound care consult made. Patient also has many small scabs on Bilateral arms and lower legs. Bed in low locked position, call light in reach. will continue to monitor.
--- NOTE | 2018-11-01 04:49 | NUR ---
Blood glucose x4 stable, will continue to monitor Q2 hrs.
[2018-11-01] MEDS ORDERED: ALBUTEROL SULFATE 2.5 MG/3 ML NEBU. NEB PRN (09:00)
[2018-11-01] MEDS ORDERED: NYSTATIN TOPICAL POWDER 15GM BOTTLE. TP SCH (09:00)
[2018-11-01] MEDS ORDERED: POLYETHYLENE GLYCOL 3350 17 GM PACKET. PO PRN (09:00)
[2018-11-01] MEDS ORDERED: guaiFENesin DM 200MG/20MG 10 ML SYRUP PO PRN (09:00)
[2018-11-01] MEDS: NYSTATIN TOPICAL POWDER 15GM BOTTLE. TP SCH ×2 (09:00→21:02)
[2018-11-01] MEDS: PSYLLIUM HUSK (SUGAR FREE) 1 PKT PACKET PO SCH (09:00)
[2018-11-01] MEDS: BUDESONIDE 0.5 MG/2 ML NEBU. NEB SCH ×3 (09:00→19:45)
[2018-11-01] MEDS: IRON POLYSACCHARIDE COMPLEX 150 MG CAPSULE PO SCH ×2 (09:32→21:00)
[2018-11-01] MEDS: ASPIRIN 325 MG TABLET PO SCH (09:32)
[2018-11-01] MEDS: hydrALAZINE 25 MG TABLET PO SCH ×3 (09:32→21:01)
[2018-11-01] MEDS: SENNOSIDES/DOCUSATE 8.6/50MG TABLET. PO SCH ×2 (09:32→21:00)
[2018-11-01] MEDS: CHOLECALCIFEROL (VITAMIN D3) 1,000 UNIT TABLET PO SCH (09:33)
[2018-11-01] MEDS: MULTIVITAMIN with MINERAL TABLET. PO SCH (09:33)
--- NOTE | 2018-11-01 10:11 | EKG ---
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
--- NOTE | 2018-11-01 11:01 | PDOC1 ---
History and Physical Date of Admission Date of Admission DATE: 11/01/18 TIME: 11:00 Identification/Chief Complaint Chief Complaint EMS states that the called 911 and stated that the patient passed out and fell over a coffee table. seen in er , 73 year old male who presented with EMS arrived and patient's blood sugar was 23. They gave him the D10 and he 25 and got up into the 200s. EMS states the patient is noncompliant with his medications. Upon arrival patient is alert and oriented and speaking to staff. Patient's blood sugar is now 65 upon arrival. When patient asked if he took his insulin or diabetes medications he says he thinks he did Remember. When asked what medications he takes he states that he can't remember all the names of them in there are several once. He speaks in full sentences and answers all questions appropriately and follows all commands. PERRLA. Patient states he feels slightly nauseated. Patient denies diarrhea, vomiting, chest pain, shortness of air, dizziness, visual changes, numbness or tingling, weakness Family concerned that he has fallen 5-6 times so far this year Past Medical History Past Medical History Past Medical History: Diabetes-Type II, Hypertension, Renal Failure, Other Additional Past Medical Histor: morbid obesity, AMPUTATION HALF FOOT. Past Medical History Cardiovascular: CAD, CHF, HTN Pulmonary: No pertinent hx Renal/: Chronic renal insuff, Benign prostatic enlarg. Endocrine: Diabetes Past Surgical History Past Surgical History: No pertinent history Family History Family History: Diabetes, Hypertension Social History Quit ALCOHOL: none (quit) Drugs: None Current Problem List Problem List Problems Medical Problems: (1) Anemia in CKD (chronic kidney disease) Status: Chronic (2) CKD (chronic kidney disease) Status: Chronic (3) DM2 (diabetes mellitus, type 2) Status: Chronic (4) HTN (hypertension) Status: Chronic (5) Left knee pain Status: Acute (6) Morbid obesity with BMI of 50.0-59.9, adult Status: Chronic (7) Unable to ambulate Status: Acute (8) Weakness Status: Acute Cardiovascular: CAD, CHF, HTN Pulmonary: No pertinent hx Renal/: Chronic renal insuff, Benign prostatic enlarg. Endocrine: Diabetes Past Surgical History Past Surgical History: No pertinent history Family History Family History: Diabetes, Hypertension Social History Smoke: No ALCOHOL: none Drugs: None Current Problem List Problem List Problems Medical Problems: (1) Hypoglycemia Status: Acute Current Medications Current Medications Current Medications Dextrose (Dextrose 50%-Water Syringe) 25 gm 1X ONCE IV Last administered on 10/31/18at 23:15; Start 10/31/18 at 23:15; Stop 10/31/18 at 23:31; Status DC Dextrose (Dextrose 50%-Water Syringe) 25 gm STK-MED ONCE IV ; Start 10/31/18 at 23:12; Stop 10/31/18 at 23:12; Status DC Dextrose/Sodium Chloride 1,000 ml @ 100 mls/hr 1X ONCE IV Last administered on 10/31/18at 23:23; Start 10/31/18 at 23:15; Stop 11/01/18 at 09:14; Status DC Ondansetron HCl (Zofran) 4 mg PRN Q8HRS PRN IV NAUSEA/VOMITING; Start 11/01/18 at 00:15; Stop 11/02/18 at 00:14 Acetaminophen (Tylenol) 650 mg PRN Q4HRS PRN PO FEVER; Start 11/01/18 at 00:15; Stop 11/02/18 at 00:14 Nystatin (Nystop) 1 ritu BID TP Last administered on 11/01/18at 09:36; Start 11/01/18 at 09:00 Albuterol Sulfate (Ventolin Neb Soln) 2.5 mg PRN Q4HRS PRN NEB SHORTNESS OF BREATH; Start 11/01/18 at 09:00 Aspirin (Jacquelin Aspirin) 162.5 mg DAILY PO Last administered on 11/01/18 09:35; Start 11/01/18 at 09:00 Atorvastatin Calcium (Lipitor) 20 mg QHS PO ; Start 11/01/18 at 21:00 Budesonide (Pulmicort) 0.5 mg RTBID NEB ; Start 11/01/18 at 09:00 Vitamin D (Vitamin D3) 2,000 unit DAILY PO Last administered on 11/01/18at 09:35; Start 11/01/18 at 09:00 Guaifenesin (Robitussin Dm) 10 ml PRN Q6HRS PRN PO COUGH, 1st CHOICE; Start 11/01/18 at 09:00 Hydralazine HCl (Apresoline) 50 mg TID PO Last administered on 11/01/18at 09:35; Start 11/01/18 at 09:00 Polysaccharide Iron Complex (Niferex 150) 150 mg BID PO Last administered on 11/01/18at 09:35; Start 11/01/18 at 09:00 Multivitamins (Thera M Plus) 1 tab DAILY PO Last administered on 11/01/18at 09:35; Start 11/01/18 at 09:00 Nystatin (Nystop) 15 ritu DAILY TP ; Start 11/01/18 at 09:00 Pantoprazole Sodium (Protonix) 40 mg DAILYAC PO ; Start 11/01/18 at 11:30 Senna/Docusate Sodium (Senna Plus) 1 tab BID PO Last administered on 11/01/18at 09:35; Start 11/01/18 at 09:00 Psyllium Hydrophilic Mucilloid (Metamucil Fiber Packet) 1 pkt DAILY PO ; Start 11/01/18 at 09:00 Polyethylene Glycol (miraLAX PACKET) 17 gm PRN DAILY PRN PO CONSTIPATION; Start 11/01/18 at 09:00 Active Scripts Active Thera-M Tablet (Multivits,Ca,Minerals/Iron/Fa) 1 Each Tablet 1 Tab PO DAILY MDD 1 Budesonide 0.5 Mg/2 Ml Ampul.neb 0.5 Mg NEB RTBID MDD 1 Guaifenesin Dm Syrup (Guaifenesin/Dextromethorphan) 5 Ml Syrup 10 Ml PO PRN Q6HRS PRN MDD 1 Proair Hfa (Albuterol Sulfate) 8.5 Gm Hfa.aer.ad 2.5 Mg NEB PRN Q4HRS PRN MDD 1 Poly-Iron (Iron Polysaccharides Complex) 150 Mg Capsule 150 Mg PO BID MDD 1 Levaquin (Levofloxacin) 500 Mg Tablet 500 Mg PO DAILY06 MDD 1 5 Days Oxycodone Hcl Immed.release (Oxycodone Hcl) 5 Mg Tablet 10 Mg PO PRN Q4HRS PRN MDD 1 Meloxicam 7.5 Mg Tablet 7.5 Mg PO DAILY Reported Novolog Flexpen (Insulin Aspart) 100 Unit/1 Ml Insuln.pen 30 SQ TIDWMEALS Aspirin 325 Mg Tablet 0.5 Tab PO DAILY Senna-S Tablet (Sennosides/Docusate Sodium) 1 Each Tablet 1 Each PO BID Nyamyc (Nystatin) 15 Gm Powder 15 Gm TP DAILY Culturelle (Lactobacillus Rhamnosus Gg) 1 Each Capsule 1 Each PO BIDWMEALS Lantus Solostar (Insulin Glargine,Hum.rec.anlog) 100 Unit/1 Ml Insuln.pen 45 Unit SQ QHS Hydralazine Hcl 25 Mg Tablet 2 Tab PO TID [facility] Glucosamine-Chondr Tablet (Glucosamine Hcl/Chondr [place] A Na) 1 Each Tablet 2 Each PO DAILY Flonase Allergy Relief (Fluticasone Propionate) 9.9 Ml Gregory.susp 2 Sprays NS DAILY Diphenhydramine Hcl 50 Mg Capsule 25 Mg PO Q6HRS PRN Vitamin D3 (Cholecalciferol (Vitamin D3)) 1,000 Unit Tablet 2,000 Unit PO DAILY Atorvastatin Calcium 20 Mg Tablet DAILY Furosemide 20 Mg Tablet 40 Mg BID Lisinopril 40 Mg Tablet 40 DAILY Carvedilol 25 Mg Tablet 25 BID Pantoprazole Sodium (Pantoprazole Sodium) 40 Mg Tablet.dr DAILY Allergies Allergies: Coded Allergies: cefuroxime (Verified Allergy, Intermediate, 05/11/16) piperacillin (Verified Adverse Reaction, Intermediate, RASH, 10/25/15) TOLERATED ERTAPENEM tazobactam (Verified Adverse Reaction, Intermediate, RASH, 10/25/15) TOLERATED ERTAPENEM zolpidem (Verified Adverse Reaction, Intermediate, HALLUCINATIONS, 10/25/15) glipizide (Verified Adverse Reaction, Mild, SENSITIVITY TO SUN, 10/25/15) Uncoded Allergies: DUST (Allergy, Mild, SNEEZING, 10/25/15) ROS Review of System Review of Systems Review of Systems Constitutional: Denies fever or chills [] Eyes: Denies change in visual acuity, redness, or eye pain [] HENT: Denies nasal congestion or sore throat [] Respiratory: Denies cough or shortness of breath [] Cardiovascular: No additional information not addressed in HPI [] GI: Denies abdominal pain, nausea, vomiting, bloody stools or diarrhea [] : Denies dysuria or hematuria [] Musculoskeletal: Denies back pain or joint pain [] Integument: Denies rash or skin lesions [] Neurologic: Light headedness, Denies headache, focal weakness or sensory changes [] Endocrine: Hypoglycemia. Denies polyuria or polydipsia [] 14 pt systems were reviewed and found to be within normal limits, except as documented Musculoskeletal: Yes Gait Disturbance Physical Exam Physical Exam Physical Exam Physical Exam Constitutional: Well developed, well nourished, no acute distress, non-toxic appearance, obese. [] Eyes: PERRLA, EOMI, conjunctiva normal, no discharge. [] Cardiovascular:Heart rate regular rhythm, no murmur [] Lungs & Thorax: Bilateral breath sounds clear to auscultation [] Abdomen: Bowel sounds normal, soft, no tenderness, no masses, no pulsatile masses. [] Skin: Warm, dry, no erythema, no rash. [] Back: No tenderness, no CVA tenderness. [] Extremities: Left lower leg toe amputation. No tenderness, no cyanosis, no clubbing, ROM intact, Bilateral lower extremities 2+ edema. [] Neurologic: Drowsy and oriented X 3, normal motor function, normal sensory function, no focal deficits noted. [] Psychologic: Affect normal, judgement normal, mood normal. [] General: Oriented X3, Cooperative Abdomen: Normal bowel sounds, Soft Rectal Exam: not examined Extremities: No cyanosis Neuro: Normal speech, Cranial nerves 3-12 NL Psych/Mental Status: Mental status NL, Mood NL Vitals Vitals Vital Signs Date Time Temp Pulse Resp B/P (MAP) Pulse Ox O2 Delivery O2 Flow Rate FiO2 11/01/18 09:35 65 173/74 11/01/18 08:00 Room Air 11/01/18 07:00 97.5 20 99 97.5 Labs Labs Laboratory Tests Test 10/31/18 22:51 10/31/18 22:58 10/31/18 23:11 10/31/18 23:36 Glucose (Fingerstick) 66 mg/dL (70-99) 53 mg/dL (70-99) 128 mg/dL (70-99) White Blood Count 12.7 x10^3/uL (4.0-11.0) Red Blood Count 3.64 x10^6/uL (4.30-5.70) Hemoglobin 10.4 g/dL (13.0-17.5) Hematocrit 31.2 % (39.0-53.0) Mean Corpuscular Volume 86 fL (79-100) Mean Corpuscular Hemoglobin 29 pg (25-35) Mean Corpuscular Hemoglobin Concent 33 g/dL (31-37) Red Cell Distribution Width 15.2 % (11.5-14.5) Platelet Count 259 x10^3/uL (140-400) Neutrophils (%) (Auto) 80 % (31-73) Lymphocytes (%) (Auto) 9 % (24-48) Monocytes (%) (Auto) 10 % (0-9) Eosinophils (%) (Auto) 1 % (0-3) Basophils (%) (Auto) 0 % (0-3) Neutrophils # (Auto) 10.2 x10^3/uL (1.8-7.7) Lymphocytes # (Auto) 1.2 x10^3/uL (1.0-4.8) Monocytes # (Auto) 1.2 x10^3/uL (0.0-1.1) Eosinophils # (Auto) 0.1 x10^3/uL (0.0-0.7) Basophils # (Auto) 0.0 x10^3/uL (0.0-0.2) Sodium Level 137 mmol/L (136-145) Potassium Level 3.4 mmol/L (3.5-5.1) Chloride Level 102 mmol/L (98-107) Carbon Dioxide Level 22 mmol/L (21-32) Anion Gap 13 (6-14) Blood Urea Nitrogen 49 mg/dL (8-26) Creatinine 1.8 mg/dL (0.7-1.3) Estimated GFR (Cockcroft-Gault) 37.4 BUN/Creatinine Ratio 27 (6-20) Glucose Level 56 mg/dL (70-99) Calcium Level 8.7 mg/dL (8.5-10.1) Total Bilirubin 0.3 mg/dL (0.2-1.0) Aspartate Amino Transf (AST/SGOT) 16 U/L (15-37) Alanine Aminotransferase (ALT/SGPT) 23 U/L (16-63) Alkaline Phosphatase 110 U/L (46-116) Total Protein 7.4 g/dL (6.4-8.2) Albumin 3.1 g/dL (3.4-5.0) Albumin/Globulin Ratio 0.7 (1.0-1.7) Test 11/01/18 00:00 11/01/18 00:05 11/01/18 00:18 11/01/18 01:08 Glucose (Fingerstick) 126 mg/dL (70-99) 159 mg/dL (70-99) Troponin I Quantitative < 0.017 ng/mL (0.000-0.055) Urine Collection Type Unknown Urine Color Yellow Urine Clarity Clear Urine pH 5.0 Urine Specific [place] 1.015 Urine Protein Negative mg/dL (NEG-TRACE) Urine Glucose (UA) Negative mg/dL (NEG) Urine Ketones (Stick) Negative mg/dL (NEG) Urine Blood Negative (NEG) Urine Nitrite Negative (NEG) Urine Bilirubin Negative (NEG) Urine Urobilinogen Dipstick 0.2 mg/dL (0.2 mg/dL) Urine Leukocyte Esterase Negative (NEG) Urine RBC Occ /HPF (0-2) Urine WBC Occ /HPF (0-4) Urine Squamous Epithelial Cells Few /LPF Urine Bacteria 0 /HPF (0-FEW) Urine Hyaline Casts Few /HPF Test 11/01/18 03:35 11/01/18 04:39 11/01/18 06:35 11/01/18 08:44 Glucose (Fingerstick) 201 mg/dL (70-99) 217 mg/dL (70-99) 241 mg/dL (70-99) 223 mg/dL (70-99) Laboratory Tests Test 10/31/18 22:51 10/31/18 22:58 10/31/18 23:11 10/31/18 23:36 Glucose (Fingerstick) 66 mg/dL (70-99) 53 mg/dL (70-99) 128 mg/dL (70-99) White Blood Count 12.7 x10^3/uL (4.0-11.0) Red Blood Count 3.64 x10^6/uL (4.30-5.70) Hemoglobin 10.4 g/dL (13.0-17.5) Hematocrit 31.2 % (39.0-53.0) Mean Corpuscular Volume 86 fL (79-100) Mean Corpuscular Hemoglobin 29 pg (25-35) Mean Corpuscular Hemoglobin Concent 33 g/dL (31-37) Red Cell Distribution Width 15.2 % (11.5-14.5) Platelet Count 259 x10^3/uL (140-400) Neutrophils (%) (Auto) 80 % (31-73) Lymphocytes (%) (Auto) 9 % (24-48) Monocytes (%) (Auto) 10 % (0-9) Eosinophils (%) (Auto) 1 % (0-3) Basophils (%) (Auto) 0 % (0-3) Neutrophils # (Auto) 10.2 x10^3/uL (1.8-7.7) Lymphocytes # (Auto) 1.2 x10^3/uL (1.0-4.8) Monocytes # (Auto) 1.2 x10^3/uL (0.0-1.1) Eosinophils # (Auto) 0.1 x10^3/uL (0.0-0.7) Basophils # (Auto) 0.0 x10^3/uL (0.0-0.2) Sodium Level 137 mmol/L (136-145) Potassium Level 3.4 mmol/L (3.5-5.1) Chloride Level 102 mmol/L (98-107) Carbon Dioxide Level 22 mmol/L (21-32) Anion Gap 13 (6-14) Blood Urea Nitrogen 49 mg/dL (8-26) Creatinine 1.8 mg/dL (0.7-1.3) Estimated GFR (Cockcroft-Gault) 37.4 BUN/Creatinine Ratio 27 (6-20) Glucose Level 56 mg/dL (70-99) Calcium Level 8.7 mg/dL (8.5-10.1) Total Bilirubin 0.3 mg/dL (0.2-1.0) Aspartate Amino Transf (AST/SGOT) 16 U/L (15-37) Alanine Aminotransferase (ALT/SGPT) 23 U/L (16-63) Alkaline Phosphatase 110 U/L (46-116) Total Protein 7.4 g/dL (6.4-8.2) Albumin 3.1 g/dL (3.4-5.0) Albumin/Globulin Ratio 0.7 (1.0-1.7) Test 11/01/18 00:00 11/01/18 00:05 11/01/18 00:18 11/01/18 01:08 Glucose (Fingerstick) 126 mg/dL (70-99) 159 mg/dL (70-99) Troponin I Quantitative < 0.017 ng/mL (0.000-0.055) Urine Collection Type Unknown Urine Color Yellow Urine Clarity Clear Urine pH 5.0 Urine Specific [place] 1.015 Urine Protein Negative mg/dL (NEG-TRACE) Urine Glucose (UA) Negative mg/dL (NEG) Urine Ketones (Stick) Negative mg/dL (NEG) Urine Blood Negative (NEG) Urine Nitrite Negative (NEG) Urine Bilirubin Negative (NEG) Urine Urobilinogen Dipstick 0.2 mg/dL (0.2 mg/dL) Urine Leukocyte Esterase Negative (NEG) Urine RBC Occ /HPF (0-2) Urine WBC Occ /HPF (0-4) Urine Squamous Epithelial Cells Few /LPF Urine Bacteria 0 /HPF (0-FEW) Urine Hyaline Casts Few /HPF Test 11/01/18 03:35 11/01/18 04:39 11/01/18 06:35 11/01/18 08:44 Glucose (Fingerstick) 201 mg/dL (70-99) 217 mg/dL (70-99) 241 mg/dL (70-99) 223 mg/dL (70-99) Images Images Pulmonary Vein S1 Velocity 12.4cm/s D2 Velocity 12.4cm/s LEFT VENTRICLE The left ventricle is normal size. There is borderline to mild concentric left ventricular hypertrophy. Left ventricle systolic function is normal. The Ejection Fraction is 52%. There is normal LV segmental wall motion. The left ventricular diastolic function and filling is normal for age. RIGHT VENTRICLE The right ventricle is borderline dilated. The right ventricular systolic function is normal. ATRIA The left atrium size is normal. The right atrium size is normal. The interatrial septum is intact with no evidence for an atrial septal defect or patent foramen ovale as noted on 2-D or Doppler imaging. AORTIC VALVE The aortic valve is not well visualized. Doppler and Color Flow revealed no significant aortic regurgitation. There is no significant aortic valvular stenos is. MITRAL VALVE The mitral valve is normal in structure and function. There is no mitral valve stenosis. Doppler and Color Flow revealed no mitral valve regurgitation noted. TRICUSPID VALVE The tricuspid valve is normal in structure and function. Doppler and Color Flow revealed trace tricuspid regurgitation. The PA pressure was estimated at 19 mmHg. There is no tricuspid valve stenosis. PULMONIC VALVE The pulmonic valve is not well visualized. Doppler and Color Flow revealed no pulmonic valvular regurgitation. There is no pulmonic valvular stenosis. GREAT VESSELS The aortic root is normal in size. The IVC is normal in size and collapses >50% with inspiration. PERICARDIAL EFFUSION There is no evidence of significant pericardial effusion. Critical Notification Critical Value: No <Conclusion> Left ventricle systolic function is normal. The Ejection Fraction is 52%. There is borderline to mild concentric left ventricular hypertrophy. The right ventricle is borderline dilated. The left atrium size is normal. The right atrium size is normal. The aortic valve is not well visualized. The mitral valve is normal in structure and function. Doppler and Color Flow revealed trace tricuspid regurgitation. The PA pressure was estimated at 19 mmHg. The pulmonic valve is not well visualized. There is no evidence of significant pericardial effusion. 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 Duplex arterial ultrasound, right lower extremity 09/04/2018 COMPARISON STUDY: None Discussion: Blood pressure measurements were obtained at the arms and ankles bilaterally. Ultrasound evaluation of the major arteries of the right lower extremity were performed including color Doppler imaging spectral analysis FINDINGS: Right brachial pressure: 115 mmHg Left brachial pressure: 108 mmHg Right ankle pressure: 125 mmHg Left ankle pressure: 133 mmHg Right KRYS 1.08, normal Left KRYS 1.23, mildly elevated. There is diffuse atherosclerotic vascular disease noted. Elevated velocities within the right common femoral artery are seen measuring up to 250 cm/s. Profunda artery appears grossly patent. Aliasing is seen throughout the proximal right SFA. Elevated velocities continue into the proximal most right SFA measuring up to 240 cm/s. Elevated velocities are seen within the right mid SFA up to 280 cm/s. Prominent collateral artery appears to be present in the mid thigh. Elevated velocities are seen within the distal femoral artery up to 300 cm/s. Probable Carter's cyst noted in the posterior medial knee. This measures 6.5 x 2.9 x 3.7 cm. Mildly elevated velocities are seen within the popliteal artery. Waveform morphology however the popliteal artery appears to remain biphasic. The anterior tibial artery is nonvisualized. Reconstituted dorsalis pedis artery appears to be present. Posterior tibial artery demonstrates monophasic flow which is nonspecific given other findings. IMPRESSION: 1. Normal right ankle brachial index 2. Elevated velocities within the right common femoral artery and superficial femoral artery possibly reflecting hemodynamically significant stenoses. Possible occlusion of the anterior tibial artery with dorsalis pedis artery reconstitution. Consider CT or conventional angiography for further evaluation. Electronically signed by: Matt Hanson MD (09/04/2018 4:29 PM) [facility] Exam: CT head INDICATION: Fall TECHNIQUE: Sequential axial images through the head were obtained without the administration of IV contrast. Comparisons: None FINDINGS: No focal parenchymal lesion or hemorrhage is identified. There is no midline shift or sulcal effacement. Mild patchy hypodensity within the periventricular white matter. The ventricular system is within normal limits without compression hydrocephalus. The basal cisterns are well maintained. The visualized portions of the paranasal sinuses and mastoid air cells are well-pneumatized. No acute fractures. IMPRESSION: No sequela for acute traumatic injury. Mild patchy hypodensity in the periventricular white matter which is technically age indeterminate and may represent chronic ischemic change. Exposure: One or more of the following in the visualized dose reduction techniques were utilized for this examination: 1. Automated exposure control 2. Adjustment of the MA and/or KV according to patient size Use of iterative of reconstructive technique Electronically signed by: Silvio Damon MD (10/31/2018 11:38 PM) [facility] VTE Prophylaxis Ordered VTE Prophylaxis Devices: No VTE Pharmacological Prophylaxi: No Assessment/Plan Assessment/Plan Impression: fall Hypoglycemia Weakness uncontrolled hypertension GAIT INSTABILITY Possible occlusion of the anterior tibial artery with dorsalis pedis artery reconstitution. Consider CT or conventional angiography for further evaluation. on ct head , Mild patchy hypodensity in the periventricular white matter which is technically age indeterminate and may represent chronic ischemic change. DM2 HTN on echo 2016 Ejection Fraction is 52%. borderline to mild concentric left ventricular hypertrophy.right ventricle was borderline dilated. Morbidly Obese (BMI 51.8) CKD Anemia of CKD HX NONCOMPLIANCE NORMOCYTIC ANEMIA osteoarthritis of knees ADMITTED cvc bed PT/OT Nephrology consult echo doppler bilateral carotids check orthostatics bp/pulse accuchecks ac/hs a1c 76 MIN PT EXAM, CHART REVIEW, > 50% OF TIME SPENT WITH EXAM, CHART REVIEW, PT CARE COORDINATION Past Medical History Cardiovascular: CAD, CHF, HTN Pulmonary: No pertinent hx Renal/: Chronic renal insuff, Benign prostatic enlarg. Endocrine: Diabetes Past Surgical History Past Surgical History: No pertinent history Family History Family History: Diabetes, Hypertension Social History Quit ALCOHOL: none (quit) Drugs: None Current Problem List Problem List Problems Medical Problems: (1) Anemia in CKD (chronic kidney disease) Status: Chronic (2) CKD (chronic kidney disease) Status: Chronic (3) DM2 (diabetes mellitus, type 2) Status: Chronic (4) HTN (hypertension) Status: Chronic AJAY GURROLA MD Nov 01, 2018 11:01
[2018-11-01] MEDS ORDERED: IV DEXTROSE 5 %-0.45 % NACL 1,000 ML IV SCH (11:45)
[2018-11-01] MEDS: PANTOPRAZOLE 40 MG TABLET.DR. PO SCH (11:51)
[2018-11-01] MEDS ORDERED: DEXTROSE 50% 25 GM / 50ML DISP.SYRIN. IV PRN (14:15)
[2018-11-01] MEDS ORDERED: IV DEXTROSE 5% 250 ML BAG. IV PRN (14:15)
[2018-11-01] MEDS: POTASSIUM CHLORIDE 10 MEQ TABLET.ER. PO SCH (14:43)
[2018-11-01] MEDS: amLODIPine BESYLATE 5 MG TABLET PO SCH (14:47)
--- NOTE | 2018-11-01 15:47 | PDOC2 ---
GI CONSULT Reason For Consult: ANEMIA and heme positive stool HPI: HPI: 73 year old male who presented with EMS arrived and patient's blood sugar was 23 called 911 and stated that the patient passed out and fell over a coffee table.. They gave him the D10 and he 25 and got up into the 200s. EMS states the patient is noncompliant with his medications. His Hgb is 10.4. He was in house last week with Hgb of 9.4. he takes iron for iron deficiency anemia. he also takes Meloxicam and 1/2 ASA daily. he has been constipated and took prune juice. This caused him to have several bowel movements and he thinks hat he had a hemorrhoidal bleed He denies N/V/Abd pain, or blood in his stool He states that he has had a colonoscopy at every 5 years since he was 42. He does not think that he has had any abnormalities and denies [facility] PMH: PMH: Past Medical History Past Medical History Past Medical History: Diabetes-Type II, Hypertension, Renal Failure, Other Additional Past Medical Histor: morbid obesity, AMPUTATION HALF FOOT. Past Medical History Cardiovascular: CAD, CHF, HTN Pulmonary: No pertinent hx Renal/: Chronic renal insuff, Benign prostatic enlarg. Endocrine: Diabetes Past Surgical History Past Surgical History: No pertinent history Family History Family History: Diabetes, Hypertension Social History Quit ALCOHOL: none (quit) Drugs: None Current Problem List Problem List Problems Medical Problems: (1) Anemia in CKD (chronic kidney disease) Status: Chronic (2) CKD (chronic kidney disease) Status: Chronic (3) DM2 (diabetes mellitus, type 2) Status: Chronic (4) HTN (hypertension) Status: Chronic (5) Left knee pain Status: Acute (6) Morbid obesity with BMI of 50.0-59.9, adult Status: Chronic (7) Unable to ambulate Status: Acute (8) Weakness Status: Acute Cardiovascular: CAD, CHF, HTN Pulmonary: No pertinent hx Renal/: Chronic renal insuff, Benign prostatic enlarg. Endocrine: Diabetes Past Surgical History Past Surgical History: No pertinent history Family History Family History: Diabetes, Hypertension Social History Smoke: No ALCOHOL: none Drugs: None Current Problem List Problem List Problems Medical Problems: (1) Hypoglycemia Status: Acute Active Scripts Active Thera-M Tablet (Multivits,Ca,Minerals/Iron/Fa) 1 Each Tablet 1 Tab PO DAILY MDD 1 Budesonide 0.5 Mg/2 Ml Ampul.neb 0.5 Mg NEB RTBID MDD 1 Guaifenesin Dm Syrup (Guaifenesin/Dextromethorphan) 5 Ml Syrup 10 Ml PO PRN Q6HRS PRN MDD 1 Proair Hfa (Albuterol Sulfate) 8.5 Gm Hfa.aer.ad 2.5 Mg NEB PRN Q4HRS PRN MDD 1 Poly-Iron (Iron Polysaccharides Complex) 150 Mg Capsule 150 Mg PO BID MDD 1 Levaquin (Levofloxacin) 500 Mg Tablet 500 Mg PO DAILY06 MDD 1 5 Days Oxycodone Hcl Immed.release (Oxycodone Hcl) 5 Mg Tablet 10 Mg PO PRN Q4HRS PRN MDD 1 Meloxicam 7.5 Mg Tablet 7.5 Mg PO DAILY Reported Novolog Flexpen (Insulin Aspart) 100 Unit/1 Ml Insuln.pen 30 SQ TIDWMEALS Aspirin 325 Mg Tablet 0.5 Tab PO DAILY Senna-S Tablet (Sennosides/Docusate Sodium) 1 Each Tablet 1 Each PO BID Nyamyc (Nystatin) 15 Gm Powder 15 Gm TP DAILY Culturelle (Lactobacillus Rhamnosus Gg) 1 Each Capsule 1 Each PO BIDWMEALS Lantus Solostar (Insulin Glargine,Hum.rec.anlog) 100 Unit/1 Ml Insuln.pen 45 Uni t SQ QHS Hydralazine Hcl 25 Mg Tablet 2 Tab PO TID Cvs Glucosamine-Chondr Tablet (Glucosamine Hcl/Chondr [place] A Na) 1 Each Tablet 2 Each PO DAILY Flonase Allergy Relief (Fluticasone Propionate) 9.9 Ml [place].susp 2 Sprays NS DAILY Diphenhydramine Hcl 50 Mg Capsule 25 Mg PO Q6HRS PRN Vitamin D3 (Cholecalciferol (Vitamin D3)) 1,000 Unit Tablet 2,000 Unit PO DAILY Atorvastatin Calcium 20 Mg Tablet DAILY Furosemide 20 Mg Tablet 40 Mg BID Lisinopril 40 Mg Tablet 40 DAILY Carvedilol 25 Mg Tablet 25 BID Pantoprazole Sodium (Pantoprazole Sodium) 40 Mg Tablet.dr DAILY Allergies Allergies: Coded Allergies: cefuroxime (Verified Allergy, Intermediate, 05/11/16) piperacillin (Verified Adverse Reaction, Intermediate, RASH, 10/25/15) TOLERATED ERTAPENEM tazobactam (Verified Adverse Reaction, Intermediate, RASH, 10/25/15) TOLERATED ERTAPENEM zolpidem (Verified Adverse Reaction, Intermediate, HALLUCINATIONS, 10/25/15) glipizide (Verified Adverse Reaction, Mild, SENSITIVITY TO SUN, 10/25/15) Uncoded Allergies: DUST (Allergy, Mild, SNEEZING, 10/25/15) Social History: Smoke: No ALCOHOL: none Drugs: None ROS: ROS Review of System Review of Systems Review of Systems Constitutional: Denies fever or chills [] Eyes: Denies change in visual acuity, redness, or eye pain [] HENT: Denies nasal congestion or sore throat [] Respiratory: Denies cough or shortness of breath [] Cardiovascular: No additional information not addressed in HPI [] GI: Denies abdominal pain, nausea, vomiting, bloody stools or diarrhea [] : Denies dysuria or hematuria [] Musculoskeletal: Denies back pain or joint pain [] Integument: Denies rash or skin lesions [] Neurologic: Light headedness, Denies headache, focal weakness or sensory changes [] Endocrine: Hypoglycemia. Denies polyuria or polydipsia [] 14 pt systems were reviewed and found to be within normal limits, except as documented Musculoskeletal: Yes Gait Disturbance VItals: Vitals: Vital Signs Date Time Temp Pulse Resp B/P (MAP) Pulse Ox O2 Delivery O2 Flow Rate FiO2 11/01/18 15:34 98 Room Air 11/01/18 14:47 87 169/73 11/01/18 11:00 98.1 20 98.1 Labs: Labs: Laboratory Tests Test 10/31/18 22:51 10/31/18 22:58 10/31/18 23:11 10/31/18 23:36 Glucose (Fingerstick) 66 mg/dL (70-99) 53 mg/dL (70-99) 128 mg/dL (70-99) White Blood Count 12.7 x10^3/uL (4.0-11.0) Red Blood Count 3.64 x10^6/uL (4.30-5.70) Hemoglobin 10.4 g/dL (13.0-17.5) Hematocrit 31.2 % (39.0-53.0) Mean Corpuscular Volume 86 fL (79-100) Mean Corpuscular Hemoglobin 29 pg (25-35) Mean Corpuscular Hemoglobin Concent 33 g/dL (31-37) Red Cell Distribution Width 15.2 % (11.5-14.5) Platelet Count 259 x10^3/uL (140-400) Neutrophils (%) (Auto) 80 % (31-73) Lymphocytes (%) (Auto) 9 % (24-48) Monocytes (%) (Auto) 10 % (0-9) Eosinophils (%) (Auto) 1 % (0-3) Basophils (%) (Auto) 0 % (0-3) Neutrophils # (Auto) 10.2 x10^3/uL (1.8-7.7) Lymphocytes # (Auto) 1.2 x10^3/uL (1.0-4.8) Monocytes # (Auto) 1.2 x10^3/uL (0.0-1.1) Eosinophils # (Auto) 0.1 x10^3/uL (0.0-0.7) Basophils # (Auto) 0.0 x10^3/uL (0.0-0.2) Sodium Level 137 mmol/L (136-145) Potassium Level 3.4 mmol/L (3.5-5.1) Chloride Level 102 mmol/L (98-107) Carbon Dioxide Level 22 mmol/L (21-32) Anion Gap 13 (6-14) Blood Urea Nitrogen 49 mg/dL (8-26) Creatinine 1.8 mg/dL (0.7-1.3) Estimated GFR (Cockcroft-Gault) 37.4 BUN/Creatinine Ratio 27 (6-20) Glucose Level 56 mg/dL (70-99) Calcium Level 8.7 mg/dL (8.5-10.1) Total Bilirubin 0.3 mg/dL (0.2-1.0) Aspartate Amino Transf (AST/SGOT) 16 U/L (15-37) Alanine Aminotransferase (ALT/SGPT) 23 U/L (16-63) Alkaline Phosphatase 110 U/L (46-116) Total Protein 7.4 g/dL (6.4-8.2) Albumin 3.1 g/dL (3.4-5.0) Albumin/Globulin Ratio 0.7 (1.0-1.7) Test 11/01/18 00:00 11/01/18 00:05 11/01/18 00:18 11/01/18 01:08 Glucose (Fingerstick) 126 mg/dL (70-99) 159 mg/dL (70-99) Troponin I Quantitative < 0.017 ng/mL (0.000-0.055) Urine Collection Type Unknown Urine Color Yellow Urine Clarity Clear Urine pH 5.0 Urine Specific Dresser 1.015 Urine Protein Negative mg/dL (NEG-TRACE) Urine Glucose (UA) Negative mg/dL (NEG) Urine Ketones (Stick) Negative mg/dL (NEG) Urine Blood Negative (NEG) Urine Nitrite Negative (NEG) Urine Bilirubin Negative (NEG) Urine Urobilinogen Dipstick 0.2 mg/dL (0.2 mg/dL) Urine Leukocyte Esterase Negative (NEG) Urine RBC Occ /HPF (0-2) Urine WBC Occ /HPF (0-4) Urine Squamous Epithelial Cells Few /LPF Urine Bacteria 0 /HPF (0-FEW) Urine Hyaline Casts Few /HPF Test 11/01/18 03:35 11/01/18 04:39 11/01/18 06:35 11/01/18 08:44 Glucose (Fingerstick) 201 mg/dL (70-99) 217 mg/dL (70-99) 241 mg/dL (70-99) 223 mg/dL (70-99) Test 11/01/18 11:15 11/01/18 13:25 Glucose (Fingerstick) 214 mg/dL (70-99) 245 mg/dL (70-99) PE: Physical Exam Physical Exam Physical Exam Physical Exam Constitutional: Well developed, well nourished, no acute distress, non-toxic appearance, obese. [] Eyes: PERRLA, EOMI, conjunctiva normal, no discharge. [] Cardiovascular:Heart rate regular rhythm, no murmur [] Lungs & Thorax: Bilateral breath sounds clear to auscultation [] Abdomen: Bowel sounds normal, soft, no tenderness, no masses, no pulsatile masses. [] Skin: Warm, dry, no erythema, no rash. [] Back: No tenderness, no CVA tenderness. [] Extremities: Left lower leg toe amputation. No tenderness, no cyanosis, no clubbing, ROM intact, Bilateral lower extremities 2+ edema. [] Neurologic: Drowsy and oriented X 3, normal motor function, normal sensory function, no focal deficits noted. [] Psychologic: Affect normal, judgement normal, mood normal. [] General: Oriented X3, Cooperative Abdomen: Normal bowel sounds, Soft Rectal Exam: not examined Extremities: No cyanosis Neuro: Normal speech, Cranial nerves 3-12 NL Psych/Mental Status: Mental status NL, Mood NL A/P: A/P: A) 1) Iron deficiency anemia 2) Heme positive stool P) 1) Add PPI 2) Monitor Hgb LIT RENDON MD Nov 01, 2018 15:47
--- NOTE | 2018-11-01 16:49 | RAD ---
Clinical Indications: Syncope. Exam : Carotid Duplex with Grayscale Ultrasound and Spectral and Color Doppler Analysis: PQRS Compliance Statement - Stenosis calculations for CT, MR and conventional angiography are based upon measurement of the distal ICA diameter in accordance with the NASCET methodology. Stenosis calculations for carotid ultrasound studies are derived from validated velocity criteria which are known to correlate with the NASCET methodology. Comparison study: None available. Findings: The common, internal and external carotid arteries were examined by grayscale, color and spectral Doppler ultrasound. Moderate atherosclerotic calcifications identified in the carotid bulbs and proximal internal carotid arteries.. Flow in both vertebral arteries was antegrade and normal. The following are the velocities and ratios in the carotid arteries on both sides: RIGHT ICA PV: 153cm/sec RIGHT CCA PV: 110cm/sec RIGHT ICA ED: 63cm/sec RIGHT IC/CCPV: 1.9 RIGHT VERTEBRAL: antegrade flow RIGHT % STENOSIS: 50-69 percent LEFT ICA PV: 141cm/sec LEFT CCA PV: 104cm/sec LEFT ICA ED: 20cm/sec LEFT IC/CCPV: 1.4 LEFT VERTEBRAL: antegrade flow LEFT % STENOSIS: Less than 50 percent <50% ICA Stenosis: PSV < 125cm/s (EDV < 40cm/s; SVR < 2.0) 50-69% ICA Stenosis: PSV < 125-229cm/s (EDV 40-99cm/s; SVR 2.0-3.9) >70% ICA Stenosis: PSV > 230cm/s (EDV >100cm/s; SVR >4.0) Impression: 1. 50-69 percent stenosis in the right proximal internal carotid artery. Electronically signed by: Emerson Lockett MD (11/01/2018 4:47 PM) [facility]
[2018-11-01] MEDS: ATORVASTATIN CALCIUM 20 MG TABLET PO SCH (21:00)
[2018-11-02] MEDS ORDERED: ACETAMINOPHEN 325 MG TABLET. PO PRN (01:45)
[2018-11-02] MEDS ORDERED: traMADol 50 MG TABLET PO PRN (01:45)
[2018-11-02 03:25] VITALS: BP 137/45
[2018-11-02 04:07] LABS: HEMOGLOBIN A1C 6.8 % (4.8-5.6)
[2018-11-02 07:00] VITALS: BP 169/75
[2018-11-02 07:19] LABS: CALCIUM 9.2 mg/dL (8.5-10.1); CREATININE 1.5 mg/dL (0.7-1.3); GFR 46.1; POTASSIUM 4.7 mmol/L (3.5-5.1)
[2018-11-02 07:30] LABS: BASO % 0 % (0-3); EOS # 0.1 x10^3/uL (0.0-0.7); EOS % 1 % (0-3); HEMATOCRIT 30.7 % (39.0-53.0); HEMOGLOBIN 10.1 g/dL (13.0-17.5); LYMPH # 1.5 x10^3/uL (1.0-4.8); LYMPH % 13 % (24-48); MEAN CORPUSCULAR HEMOGLOBIN 28 pg (25-35); MEAN CORPUSCULAR HGB CONC 33 g/dL (31-37); MEAN CORPUSCULAR VOLUME 86 fL (79-100); MONO # 1.1 x10^3/uL (0.0-1.1); MONO % 9 % (0-9); NEUT # 8.8 x10^3/uL (1.8-7.7); NEUT % 76 % (31-73); PLATELET COUNT 248 x10^3/uL (140-400); RED BLOOD COUNT 3.58 x10^6/uL (4.30-5.70); RED CELL DISTRIBUTION WIDTH 15.5 % (11.5-14.5); WHITE BLOOD COUNT 11.5 x10^3/uL (4.0-11.0)
[2018-11-02] MEDS ORDERED: PANTOPRAZOLE 40 MG TABLET.DR. PO SCH (07:30)
[2018-11-02] MEDS ORDERED: LABETALOL 20 MG/4 ML DISP.SYRIN. IVP PRN (08:30)
[2018-11-02] MEDS: PANTOPRAZOLE 40 MG TABLET.DR. PO SCH (08:47)
[2018-11-02] MEDS: IRON POLYSACCHARIDE COMPLEX 150 MG CAPSULE PO SCH ×2 (08:47→21:28)
[2018-11-02] MEDS: hydrALAZINE 25 MG TABLET PO SCH ×3 (08:48→21:29)
[2018-11-02] MEDS: amLODIPine BESYLATE 5 MG TABLET PO SCH (08:48)
[2018-11-02] MEDS: SENNOSIDES/DOCUSATE 8.6/50MG TABLET. PO SCH ×2 (08:48→21:28)
[2018-11-02] MEDS: CHOLECALCIFEROL (VITAMIN D3) 1,000 UNIT TABLET PO SCH (08:49)
[2018-11-02] MEDS: MULTIVITAMIN with MINERAL TABLET. PO SCH (08:49)
[2018-11-02] MEDS: ASPIRIN 325 MG TABLET PO SCH (08:49)
[2018-11-02] MEDS: POTASSIUM CHLORIDE 10 MEQ TABLET.ER. PO SCH (08:49)
[2018-11-02] MEDS: NYSTATIN TOPICAL POWDER 15GM BOTTLE. TP SCH ×2 (08:50→21:00)
[2018-11-02] MEDS: PSYLLIUM HUSK (SUGAR FREE) 1 PKT PACKET PO SCH (08:50)
[2018-11-02] MEDS: BUDESONIDE 0.5 MG/2 ML NEBU. NEB SCH ×2 (08:53→19:20)
--- NOTE | 2018-11-02 09:37 | PDOC ---
Subjective: Subjective: Denies reflux/heartburn and dysphagia. No abd pain. Appetite is good - "why didn't they wake me up for breakfast?" Denies bleeding but does mention recent constipation w/ hemorrhoidal-type bleeding. (Constipation is resolved.) Admits to NSAID and ASA use though can't recall names of pills. Objective: Vital Signs: Vital Signs Date Time Temp Pulse Resp B/P (MAP) Pulse Ox O2 Delivery O2 Flow Rate FiO2 11/02/18 08:55 98 Room Air 11/02/18 08:50 75 169/75 11/02/18 07:00 98.1 20 2.0 98.1 Labs: Laboratory Tests Test 11/01/18 11:15 11/01/18 13:25 11/01/18 17:21 11/01/18 20:53 Glucose (Fingerstick) 214 mg/dL 245 mg/dL 188 mg/dL 210 mg/dL Test 11/02/18 06:30 11/02/18 07:30 White Blood Count 11.5 x10^3/uL Red Blood Count 3.58 x10^6/uL Hemoglobin 10.1 g/dL Hematocrit 30.7 % Mean Corpuscular Volume 86 fL Mean Corpuscular Hemoglobin 28 pg Mean Corpuscular Hemoglobin Concent 33 g/dL Red Cell Distribution Width 15.5 % Platelet Count 248 x10^3/uL Neutrophils (%) (Auto) 76 % Lymphocytes (%) (Auto) 13 % Monocytes (%) (Auto) 9 % Eosinophils (%) (Auto) 1 % Basophils (%) (Auto) 0 % Neutrophils # (Auto) 8.8 x10^3/uL Lymphocytes # (Auto) 1.5 x10^3/uL Monocytes # (Auto) 1.1 x10^3/uL Eosinophils # (Auto) 0.1 x10^3/uL Basophils # (Auto) 0.0 x10^3/uL Sodium Level 139 mmol/L Potassium Level 4.7 mmol/L Chloride Level 105 mmol/L Carbon Dioxide Level 24 mmol/L Anion Gap 10 Blood Urea Nitrogen 41 mg/dL Creatinine 1.5 mg/dL Estimated GFR (Cockcroft-Gault) 46.1 Glucose Level 152 mg/dL Calcium Level 9.2 mg/dL Glucose (Fingerstick) 154 mg/dL PE: GEN: NAD - asleep in recliner LUNGS: clear anteriorly, NC 2L HEART: RRR ABD: large, soft NEURO/PSYCH: A & O �3 but drowsy A/P: LOUISE NSAID use HTN, CKD, DM/hypoglycemia, right [facility] CRC screen - several colonoscopies in the past -- EGD this afternoon r/o UGI source. Continue PPI. MATT MARVIN Nov 02, 2018 09:37
--- NOTE | 2018-11-02 09:52 | PDOC2 ---
CARDIAC CONSULT DATE OF CONSULT Date of Consult DATE: 11/02/18 TIME: 09:45 REASON FOR CONSULT Reason for Consult: Falls Uncontrolled hypertensio REFERRING PHYSICIAN Referring Physician: Dr. Aguilera SOURCE Source: Chart review, Patient HISTORY OF PRESENT ILLNESS HISTORY OF PRESENT ILLNESS This is 73 yo male who presented secondary to syncopal episode. Patient reports that he took his usual insulin Friday night, but did not eat following. Stood up out of the chair and subsequently passed out, falling on to the coffee table. called EMS. Blood glucose 23 upon EMS arrival. Patient denies any chest pain, palpitations, dizziness, diaphoresis, shortness of breath, or nausea/vomiting. PAST MEDICAL HISTORY Cardiovascular: HTN, Hyperlipidemia, Other (PAD) Pulmonary: Other (JASEN with CPAP) Heme/Onc: Anemia NOS Psych: Depression Musculoskeletal: Osteoarthritis, Other (DDD) Renal/: Chronic renal insuff, Benign prostatic enlarg. Endocrine: Diabetes PAST SURGICAL HISTORY Past Surgical History: Other (right rotator cuff surgery, left TMA ) FAMILY HISTORY Family History: Diabetes, Hypertension SOCIAL HISTORY Smoke: Quit ( ) ALCOHOL: none Drugs: None Lives: with Family CURRENT MEDICATIONS CURRENT MEDICATIONS Current Medications Medications (Trade) Dose Ordered Sig/Beatrice Route PRN Reason Start Time Stop Time Status Last Admin Dose Admin Atorvastatin Calcium (Lipitor) 20 mg QHS PO 11/01/18 21:00 11/01/18 21:02 Pantoprazole Sodium (Protonix) 40 mg DAILYAC PO 11/01/18 11:30 11/02/18 08:50 Dextrose/Sodium Chloride 1,000 ml @ 50 mls/hr Q20H IV 11/01/18 11:45 11/01/18 14:11 DC 11/01/18 11:52 Potassium Chloride (Klor-Con) 30 meq DAILYWBKFT PO 11/01/18 15:00 11/02/18 08:50 Amlodipine Besylate (Norvasc) 5 mg DAILY PO 11/01/18 15:00 11/02/18 08:50 Tramadol HCl (Ultram) 50 mg PRN Q6HRS PRN PO PAIN 11/02/18 01:45 11/02/18 02:05 ALLERGIES ALLERGIES: Coded Allergies: cefuroxime (Verified Allergy, Intermediate, 05/11/16) piperacillin (Verified Adverse Reaction, Intermediate, RASH, 10/25/15) TOLERATED ERTAPENEM tazobactam (Verified Adverse Reaction, Intermediate, RASH, 10/25/15) TOLERATED ERTAPENEM zolpidem (Verified Adverse Reaction, Intermediate, HALLUCINATIONS, 10/25/15) glipizide (Verified Adverse Reaction, Mild, SENSITIVITY TO SUN, 10/25/15) Uncoded Allergies: DUST (Allergy, Mild, SNEEZING, 10/25/15) ROS Review of System 14 point ROS conducted with pertinent positives noted above in HPI. PHYSICAL EXAM General: Alert, Oriented X3, Cooperative, No acute distress HEENT: Atraumatic, Mucous membr. moist/pink Lungs: Clear to auscultation Heart: Regular rate, Normal S1, Normal S2 Abdomen: Soft, Other (obese ) Extremities: No edema Skin: No significant lesion Neuro: Normal speech, Sensation intact Psych/Mental Status: Mental status NL, Mood NL MUSCULOSKELETAL: Osteoarthritic changes both hands VITALS/I&O VITALS/I&O: Vital Signs Date Time Temp Pulse Resp B/P (MAP) Pulse Ox O2 Delivery O2 Flow Rate FiO2 11/02/18 08:55 98 Room Air 11/02/18 08:50 75 169/75 11/02/18 07:00 98.1 20 2.0 98.1 I & O 11/01/18 11/01/18 11/02/18 14:59 22:59 06:59 Intake Total 751 ml 250 ml 300 ml Output Total 750 ml 1875 ml 1200 ml Balance 1 ml -1625 ml -900 ml LABS Lab: Laboratory Tests Test 11/01/18 11:15 11/01/18 13:25 11/01/18 17:21 11/01/18 20:53 Glucose (Fingerstick) 214 mg/dL (70-99) H 245 mg/dL (70-99) H 188 mg/dL (70-99) H 210 mg/dL (70-99) H Test 11/02/18 06:30 11/02/18 07:30 White Blood Count 11.5 x10^3/uL (4.0-11.0) H Red Blood Count 3.58 x10^6/uL (4.30-5.70) L Hemoglobin 10.1 g/dL (13.0-17.5) L Hematocrit 30.7 % (39.0-53.0) L Mean Corpuscular Volume 86 fL (79-100) Mean Corpuscular Hemoglobin 28 pg (25-35) Mean Corpuscular Hemoglobin Concent 33 g/dL (31-37) Red Cell Distribution Width 15.5 % (11.5-14.5) H Platelet Count 248 x10^3/uL (140-400) Neutrophils (%) (Auto) 76 % (31-73) H Lymphocytes (%) (Auto) 13 % (24-48) L Monocytes (%) (Auto) 9 % (0-9) Eosinophils (%) (Auto) 1 % (0-3) Basophils (%) (Auto) 0 % (0-3) Neutrophils # (Auto) 8.8 x10^3/uL (1.8-7.7) H Lymphocytes # (Auto) 1.5 x10^3/uL (1.0-4.8) Monocytes # (Auto) 1.1 x10^3/uL (0.0-1.1) Eosinophils # (Auto) 0.1 x10^3/uL (0.0-0.7) Basophils # (Auto) 0.0 x10^3/uL (0.0-0.2) Sodium Level 139 mmol/L (136-145) Potassium Level 4.7 mmol/L (3.5-5.1) Chloride Level 105 mmol/L (98-107) Carbon Dioxide Level 24 mmol/L (21-32) Anion Gap 10 (6-14) Blood Urea Nitrogen 41 mg/dL (8-26) H Creatinine 1.5 mg/dL (0.7-1.3) H Estimated GFR (Cockcroft-Gault) 46.1 Glucose Level 152 mg/dL (70-99) H Calcium Level 9.2 mg/dL (8.5-10.1) Glucose (Fingerstick) 154 mg/dL (70-99) H Laboratory Tests 11/02/18 06:30 Laboratory Tests 11/02/18 06:30 ECHOCARDIOGRAM ECHOCARDIOGRAM <Conclusion> Left ventricle systolic function is normal. The Ejection Fraction is 52%. There is borderline to mild concentric left ventricular hypertrophy. The right ventricle is borderline dilated. The left atrium size is normal. The right atrium size is normal. The aortic valve is not well visualized. The mitral valve is normal in structure and function. Doppler and Color Flow revealed trace tricuspid regurgitation. The PA pressure was estimated at 19 mmHg. The pulmonic valve is not well visualized. There is no evidence of significant pericardial effusion. DATE: 10/26/151943 ASSESSMENT/PLAN ASSESSMENT/PLAN 1. Syncope secondary to significant hypoglycemia; BG 23 upon EMS arrival 2. Hypertension; elevated 3. Diabetes, II; as per PCP 4. Hyperlipidemia 5. DIAMOND on CKD 6. JASEN with CPAP 7. LOUISE; EGD planned for today 8. PAD; s/p left TMA. No claudication symptoms. Recommendations Echo to assess LV systolic function Lipids panel Resume home antiHTN therapy. Monitor to assess need for therapy titration Supportive care from a CV standpoint. DANETTE LONG APRN Nov 02, 2018 09:52
[2018-11-02 10:52] VITALS: BP 167/62
[2018-11-02] MEDS ORDERED: IV RINGERS,LACTATED 1000ML 1,000 ML IV ONE (12:00)
--- NOTE | 2018-11-02 12:12 | CARD ---
MR#: [id number] Date of Study: 11/02/2018 Ordering Physician: AJAY GURROLA, Referring Physician: AJAY GURROLA Tech: Polly Sanchez RDCS APPROVED REPORT EXAM: Two-dimensional and M-mode echocardiogram with Doppler and color Doppler. Other Information Quality : Technically Limited Technically limited study due to body habitus. INDICATION Hypertension/HCVD RISK FACTORS Obesity 2D DIMENSIONS RVDd3.0 (2.9-3.5cm)Left Atrium(2D)3.9 (1.6-4.0cm) IVSd1.5 (0.7-1.1cm)Aortic Root(2D)3.2 (2.0-3.7cm) LVDd5.0 (3.9-5.9cm)LVOT Diameter2.3 (1.8-2.4cm) PWd1.3 (0.7-1.1cm)LVDs3.8 (2.5-4.0cm) FS (%) 24.6 %SV57.7 ml LVEF(%)55.0 (>50%) Aortic Valve AoV Peak Adal.168.7cm/sAoV VTI33.4cm AO Peak GR.11.4mmHgLVOT Peak Adal.98.3cm/s LVOT VTI 22.72cmAO Mean GR.7mmHg MICHEL (VMAX)2.85cn0IMY (VTI)2.85cm2 Mitral Valve MV E Sivnkhca46.6cm/sMV DECEL [id number] MV A Ohrwslfm287.9cm/sMV DLH07kk E/A Ratio0.7MVA (PHT)3.09cm2 TDI E/Lateral E'14.9E/Medial E'12.4 Tricuspid Valve TR P. Gsbgnjcn692ly/sRAP [id number] TR Peak Gr.91ceFlMGFV80kuVg Pulmonary Vein S1 Wjdjggzf93.0cm/sD2 Mexwkohl49.1cm/s LEFT VENTRICLE The left ventricle is normal size. There is normal left ventricular wall thickness. The left ventricu lar systolic function is normal and the ejection fraction is within normal range. The Ejection Fracti on is 55-60%. There is normal LV segmental wall motion. Transmitral Doppler flow pattern is Grade I-a bnormal relaxation pattern. RIGHT VENTRICLE The right ventricle is normal size. The right ventricular systolic function is normal. ATRIA The left atrium size is normal. The right atrium size is normal. The interatrial septum is intact wit h no evidence for an atrial septal defect or patent foramen ovale as noted on 2-D or Doppler imaging. AORTIC VALVE The aortic valve is not well visualized but appears to be functioning normally by Doppler interrogati on. Doppler and Color Flow revealed no significant aortic regurgitation. There is no significant aort ic valvular stenosis. MITRAL VALVE The mitral valve is calcified but opens well. There is no evidence of mitral valve prolapse. There is no mitral valve stenosis. Doppler and Color-flow revealed trace to mild mitral regurgitation. TRICUSPID VALVE The tricuspid valve is normal in structure and function. Doppler and Color Flow revealed physiologica l tricuspid regurgitation. The PA pressure was estimated at 18 mmHg. There is no tricuspid valve sten osis. PULMONIC VALVE The pulmonic valve is not well visualized. Doppler and Color Flow revealed no pulmonic valvular regur gitation. There is no pulmonic valvular stenosis. GREAT VESSELS The aortic root is normal in size. The ascending aorta is not well seen. The IVC is normal in size an d collapses >50% with inspiration. PERICARDIAL EFFUSION There is no evidence of significant pericardial effusion. Critical Notification Critical Value: No <Conclusion> The left ventricular systolic function is normal and the ejection fraction is within normal range. Th e Ejection Fraction is 55-60%. There is normal LV segmental wall motion. Signed by : Crow Easton, Electronically Approved : 11/02/2018 12:11:55
[2018-11-02] MEDS ORDERED: LIDOCAINE 2% PF 5 ML VIAL. ONE (12:27)
[2018-11-02] MEDS ORDERED: PROPOFOL 20 ML IV ONE (12:27)
--- NOTE | 2018-11-02 12:38 | PDOC4 ---
PROCEDURE Procedure EGD Indication: Anemia/heme positive/history of negative colonoscopies/NSAID use Meds: per anesthesia Findings: E-normal. GEJ at 45cm. G-Prepyloric erythema D-Normal to second portion. Finn. well. IMP: Non-erosive gastritis. No cause for the anemia found. REC: Will try to get records from . OK to feed, etc. GJ GONZALEZ MD Nov 02, 2018 12:37
--- NOTE | 2018-11-02 12:47 | PDOC ---
PROGRESS NOTES Chief Complaint Chief Complaint 1. Syncope secondary to significant hypoglycemia; BG 23 upon EMS arrival 2. Hypertension; elevated 3. Diabetes, II; 4. Hyperlipidemia 5. DIAMOND on CKD 6. JASEN with CPAP 7. LOUISE; EGD 11/02 8. PAD; s/p left TMA. No claudication symptoms. History of Present Illness History of Present Illness hgb 10 Out having EGD HAd a c scope KU q 5 yrs Dx with LOUISE - known dx BP high HAs 5 other consults on board PLAn: Anita norvasc Await from EGD results HH tmr Vitals Vitals Vital Signs Date Time Temp Pulse Resp B/P (MAP) Pulse Ox O2 Delivery O2 Flow Rate FiO2 11/02/18 12:36 97.5 74 18 154/67 97 Room Air 2.0 97.5 Physical Exam General: Alert, Oriented X3, Cooperative, No acute distress Heart: Regular rate, Normal S1, Normal S2 Lungs: Clear Abdomen: Soft, Other (obese ) Extremities: No clubbing, No cyanosis, No edema Skin: No rashes, No breakdown, No significant lesion Labs LABS Laboratory Tests Test 11/01/18 13:25 11/01/18 17:21 11/01/18 20:53 11/02/18 06:30 Glucose (Fingerstick) 245 mg/dL (70-99) 188 mg/dL (70-99) 210 mg/dL (70-99) White Blood Count 11.5 x10^3/uL (4.0-11.0) Red Blood Count 3.58 x10^6/uL (4.30-5.70) Hemoglobin 10.1 g/dL (13.0-17.5) Hematocrit 30.7 % (39.0-53.0) Mean Corpuscular Volume 86 fL (79-100) Mean Corpuscular Hemoglobin 28 pg (25-35) Mean Corpuscular Hemoglobin Concent 33 g/dL (31-37) Red Cell Distribution Width 15.5 % (11.5-14.5) Platelet Count 248 x10^3/uL (140-400) Neutrophils (%) (Auto) 76 % (31-73) Lymphocytes (%) (Auto) 13 % (24-48) Monocytes (%) (Auto) 9 % (0-9) Eosinophils (%) (Auto) 1 % (0-3) Basophils (%) (Auto) 0 % (0-3) Neutrophils # (Auto) 8.8 x10^3/uL (1.8-7.7) Lymphocytes # (Auto) 1.5 x10^3/uL (1.0-4.8) Monocytes # (Auto) 1.1 x10^3/uL (0.0-1.1) Eosinophils # (Auto) 0.1 x10^3/uL (0.0-0.7) Basophils # (Auto) 0.0 x10^3/uL (0.0-0.2) Sodium Level 139 mmol/L (136-145) Potassium Level 4.7 mmol/L (3.5-5.1) Chloride Level 105 mmol/L (98-107) Carbon Dioxide Level 24 mmol/L (21-32) Anion Gap 10 (6-14) Blood Urea Nitrogen 41 mg/dL (8-26) Creatinine 1.5 mg/dL (0.7-1.3) Estimated GFR (Cockcroft-Gault) 46.1 Glucose Level 152 mg/dL (70-99) Calcium Level 9.2 mg/dL (8.5-10.1) Test 11/02/18 07:30 Glucose (Fingerstick) 154 mg/dL (70-99) Review of Systems Review of Systems out having egd Assessment and Plan Assessmemt and Plan Problems Medical Problems: (1) Anemia in CKD (chronic kidney disease) Status: Chronic (2) CKD (chronic kidney disease) Status: Chronic (3) DM2 (diabetes mellitus, type 2) Status: Chronic (4) Fall Status: Acute (5) HTN (hypertension) Status: Chronic (6) Hypoglycemia Status: Acute (7) OA (osteoarthritis) of knee Status: Chronic Comment Review of Relevant I have reviewed the following items minnie (where applicable) has been applied. Labs Laboratory Tests Test 10/31/18 22:51 10/31/18 22:58 10/31/18 23:11 10/31/18 23:36 Glucose (Fingerstick) 66 mg/dL (70-99) 53 mg/dL (70-99) 128 mg/dL (70-99) White Blood Count 12.7 x10^3/uL (4.0-11.0) Red Blood Count 3.64 x10^6/uL (4.30-5.70) Hemoglobin 10.4 g/dL (13.0-17.5) Hematocrit 31.2 % (39.0-53.0) Mean Corpuscular Volume 86 fL (79-100) Mean Corpuscular Hemoglobin 29 pg (25-35) Mean Corpuscular Hemoglobin Concent 33 g/dL (31-37) Red Cell Distribution Width 15.2 % (11.5-14.5) Platelet Count 259 x10^3/uL (140-400) Neutrophils (%) (Auto) 80 % (31-73) Lymphocytes (%) (Auto) 9 % (24-48) Monocytes (%) (Auto) 10 % (0-9) Eosinophils (%) (Auto) 1 % (0-3) Basophils (%) (Auto) 0 % (0-3) Neutrophils # (Auto) 10.2 x10^3/uL (1.8-7.7) Lymphocytes # (Auto) 1.2 x10^3/uL (1.0-4.8) Monocytes # (Auto) 1.2 x10^3/uL (0.0-1.1) Eosinophils # (Auto) 0.1 x10^3/uL (0.0-0.7) Basophils # (Auto) 0.0 x10^3/uL (0.0-0.2) Sodium Level 137 mmol/L (136-145) Potassium Level 3.4 mmol/L (3.5-5.1) Chloride Level 102 mmol/L (98-107) Carbon Dioxide Level 22 mmol/L (21-32) Anion Gap 13 (6-14) Blood Urea Nitrogen 49 mg/dL (8-26) Creatinine 1.8 mg/dL (0.7-1.3) Estimated GFR (Cockcroft-Gault) 37.4 BUN/Creatinine Ratio 27 (6-20) Glucose Level 56 mg/dL (70-99) Hemoglobin A1c 6.8 % (4.8-5.6) Calcium Level 8.7 mg/dL (8.5-10.1) Total Bilirubin 0.3 mg/dL (0.2-1.0) Aspartate Amino Transf (AST/SGOT) 16 U/L (15-37) Alanine Aminotransferase (ALT/SGPT) 23 U/L (16-63) Alkaline Phosphatase 110 U/L (46-116) Total Protein 7.4 g/dL (6.4-8.2) Albumin 3.1 g/dL (3.4-5.0) Albumin/Globulin Ratio 0.7 (1.0-1.7) Test 11/01/18 00:00 11/01/18 00:05 11/01/18 00:18 11/01/18 01:08 Glucose (Fingerstick) 126 mg/dL (70-99) 159 mg/dL (70-99) Troponin I Quantitative < 0.017 ng/mL (0.000-0.055) Urine Collection Type Unknown Urine Color Yellow Urine Clarity Clear Urine pH 5.0 Urine Specific [place] 1.015 Urine Protein Negative mg/dL (NEG-TRACE) Urine Glucose (UA) Negative mg/dL (NEG) Urine Ketones (Stick) Negative mg/dL (NEG) Urine Blood Negative (NEG) Urine Nitrite Negative (NEG) Urine Bilirubin Negative (NEG) Urine Urobilinogen Dipstick 0.2 mg/dL (0.2 mg/dL) Urine Leukocyte Esterase Negative (NEG) Urine RBC Occ /HPF (0-2) Urine WBC Occ /HPF (0-4) Urine Squamous Epithelial Cells Few /LPF Urine Bacteria 0 /HPF (0-FEW) Urine Hyaline Casts Few /HPF Test 11/01/18 03:35 11/01/18 04:39 11/01/18 06:35 11/01/18 08:44 Glucose (Fingerstick) 201 mg/dL (70-99) 217 mg/dL (70-99) 241 mg/dL (70-99) 223 mg/dL (70-99) Test 11/01/18 11:15 11/01/18 13:25 11/01/18 17:21 11/01/18 20:53 Glucose (Fingerstick) 214 mg/dL (70-99) 245 mg/dL (70-99) 188 mg/dL (70-99) 210 mg/dL (70-99) Test 11/02/18 06:30 11/02/18 07:30 White Blood Count 11.5 x10^3/uL (4.0-11.0) Red Blood Count 3.58 x10^6/uL (4.30-5.70) Hemoglobin 10.1 g/dL (13.0-17.5) Hematocrit 30.7 % (39.0-53.0) Mean Corpuscular Volume 86 fL (79-100) Mean Corpuscular Hemoglobin 28 pg (25-35) Mean Corpuscular Hemoglobin Concent 33 g/dL (31-37) Red Cell Distribution Width 15.5 % (11.5-14.5) Platelet Count 248 x10^3/uL (140-400) Neutrophils (%) (Auto) 76 % (31-73) Lymphocytes (%) (Auto) 13 % (24-48) Monocytes (%) (Auto) 9 % (0-9) Eosinophils (%) (Auto) 1 % (0-3) Basophils (%) (Auto) 0 % (0-3) Neutrophils # (Auto) 8.8 x10^3/uL (1.8-7.7) Lymphocytes # (Auto) 1.5 x10^3/uL (1.0-4.8) Monocytes # (Auto) 1.1 x10^3/uL (0.0-1.1) Eosinophils # (Auto) 0.1 x10^3/uL (0.0-0.7) Basophils # (Auto) 0.0 x10^3/uL (0.0-0.2) Sodium Level 139 mmol/L (136-145) Potassium Level 4.7 mmol/L (3.5-5.1) Chloride Level 105 mmol/L (98-107) Carbon Dioxide Level 24 mmol/L (21-32) Anion Gap 10 (6-14) Blood Urea Nitrogen 41 mg/dL (8-26) Creatinine 1.5 mg/dL (0.7-1.3) Estimated GFR (Cockcroft-Gault) 46.1 Glucose Level 152 mg/dL (70-99) Calcium Level 9.2 mg/dL (8.5-10.1) Glucose (Fingerstick) 154 mg/dL (70-99) Laboratory Tests Test 11/01/18 13:25 11/01/18 17:21 11/01/18 20:53 11/02/18 06:30 Glucose (Fingerstick) 245 mg/dL (70-99) 188 mg/dL (70-99) 210 mg/dL (70-99) White Blood Count 11.5 x10^3/uL (4.0-11.0) Red Blood Count 3.58 x10^6/uL (4.30-5.70) Hemoglobin 10.1 g/dL (13.0-17.5) Hematocrit 30.7 % (39.0-53.0) Mean Corpuscular Volume 86 fL (79-100) Mean Corpuscular Hemoglobin 28 pg (25-35) Mean Corpuscular Hemoglobin Concent 33 g/dL (31-37) Red Cell Distribution Width 15.5 % (11.5-14.5) Platelet Count 248 x10^3/uL (140-400) Neutrophils (%) (Auto) 76 % (31-73) Lymphocytes (%) (Auto) 13 % (24-48) Monocytes (%) (Auto) 9 % (0-9) Eosinophils (%) (Auto) 1 % (0-3) Basophils (%) (Auto) 0 % (0-3) Neutrophils # (Auto) 8.8 x10^3/uL (1.8-7.7) Lymphocytes # (Auto) 1.5 x10^3/uL (1.0-4.8) Monocytes # (Auto) 1.1 x10^3/uL (0.0-1.1) Eosinophils # (Auto) 0.1 x10^3/uL (0.0-0.7) Basophils # (Auto) 0.0 x10^3/uL (0.0-0.2) Sodium Level 139 mmol/L (136-145) Potassium Level 4.7 mmol/L (3.5-5.1) Chloride Level 105 mmol/L (98-107) Carbon Dioxide Level 24 mmol/L (21-32) Anion Gap 10 (6-14) Blood Urea Nitrogen 41 mg/dL (8-26) Creatinine 1.5 mg/dL (0.7-1.3) Estimated GFR (Cockcroft-Gault) 46.1 Glucose Level 152 mg/dL (70-99) Calcium Level 9.2 mg/dL (8.5-10.1) Test 11/02/18 07:30 Glucose (Fingerstick) 154 mg/dL (70-99) Medications Current Medications Dextrose (Dextrose 50%-Water Syringe) 25 gm 1X ONCE IV Last administered on 10/31/18at 23:15; Start 10/31/18 at 23:15; Stop 10/31/18 at 23:31; Status DC Dextrose (Dextrose 50%-Water Syringe) 25 gm STK-MED ONCE IV ; Start 10/31/18 at 23:12; Stop 10/31/18 at 23:12; Status DC Dextrose/Sodium Chloride 1,000 ml @ 100 mls/hr 1X ONCE IV Last administered on 10/31/18at 23:23; Start 10/31/18 at 23:15; Stop 11/01/18 at 09:14; Status DC Ondansetron HCl (Zofran) 4 mg PRN Q8HRS PRN IV NAUSEA/VOMITING; Start 11/01/18 at 00:15; Stop 11/02/18 at 00:14; Status DC Acetaminophen (Tylenol) 650 mg PRN Q4HRS PRN PO FEVER; Start 11/01/18 at 00:15; Stop 11/02/18 at 00:14; Status DC Nystatin (Nystop) 1 ritu BID TP Last administered on 11/02/18at 08:50; Start 11/01/18 at 09:00 Albuterol Sulfate (Ventolin Neb Soln) 2.5 mg PRN Q4HRS PRN NEB SHORTNESS OF BREATH; Start 11/01/18 at 09:00 Aspirin (Jacquelin Aspirin) 162.5 mg DAILY PO Last administered on 11/02/18 08:50; Start 11/01/18 at 09:00 Atorvastatin Calcium (Lipitor) 20 mg QHS PO Last administered on 11/01/18at 21:02; Start 11/01/18 at 21:00 Budesonide (Pulmicort) 0.5 mg RTBID NEB Last administered on 11/02/18 08:53; Start 11/01/18 at 09:00 Vitamin D (Vitamin D3) 2,000 unit DAILY PO Last administered on 11/02/18 08:50; Start 11/01/18 at 09:00 Guaifenesin (Robitussin Dm) 10 ml PRN Q6HRS PRN PO COUGH, 1st CHOICE; Start 11/01/18 at 09:00 Hydralazine HCl (Apresoline) 50 mg TID PO Last administered on 11/02/18at 08:50; Start 11/01/18 at 09:00 Polysaccharide Iron Complex (Niferex 150) 150 mg BID PO Last administered on 11/02/18 08:50; Start 11/01/18 at 09:00 Multivitamins (Thera M Plus) 1 tab DAILY PO Last administered on 11/02/18at 08:50; Start 11/01/18 at 09:00 Nystatin (Nystop) 15 ritu DAILY TP ; Start 11/01/18 at 09:00; Stop 11/01/18 at 16:41; Status DC Pantoprazole Sodium (Protonix) 40 mg DAILYAC PO Last administered on 11/02/18at 08:50; Start 11/01/18 at 11:30 Senna/Docusate Sodium (Senna Plus) 1 tab BID PO Last administered on 11/02/18at 08:50; Start 11/01/18 at 09:00 Psyllium Hydrophilic Mucilloid (Metamucil Fiber Packet) 1 pkt DAILY PO ; Start 11/01/18 at 09:00 Polyethylene Glycol (miraLAX PACKET) 17 gm PRN DAILY PRN PO CONSTIPATION; Start 11/01/18 at 09:00 Dextrose/Sodium Chloride 1,000 ml @ 50 mls/hr Q20H IV Last administered on 11/01/18at 11:52; Start 11/01/18 at 11:45; Stop 11/01/18 at 14:11; Status DC Potassium Chloride (Klor-Con) 30 meq DAILYWBKFT PO Last administered on 11/02/18at 08:50; Start 11/01/18 at 15:00 Dextrose (Dextrose 50%-Water Syringe) 12.5 gm PRN Q15MIN PRN IV SEE COMMENTS; Start 11/01/18 at 14:15 Dextrose 250 ml PRN Q15MIN PRN IV SEE COMMENTS; Start 11/01/18 at 14:15; Status UNV Amlodipine Besylate (Norvasc) 5 mg DAILY PO Last administered on 11/02/18at 08:50; Start 11/01/18 at 15:00 Pantoprazole Sodium (Protonix) 40 mg DAILYAC PO ; Start 11/02/18 at 07:30; Status UNV Acetaminophen (Tylenol) 650 mg PRN Q6HRS PRN PO PAIN; Start 11/02/18 at 01:45 Tramadol HCl (Ultram) 50 mg PRN Q6HRS PRN PO PAIN Last administered on 11/02/18at 02:05; Start 11/02/18 at 01:45 Labetalol HCl (Normodyne Iv Push) 10 mg PRN Q2HR PRN IVP HYPERTENSION; Start 11/02/18 at 08:30 Ringer's Solution 1,000 ml @ 75 mls/hr 1X ONCE IV Last administered on 11/02at 11:59; Start 11/02/18 at 12:00; Stop 11/03/18 at 01:19 Propofol 20 ml @ As Directed STK-MED ONCE IV ; Start 11/02/18 at 12:27; Stop 11/02/18 at 12:27; Status DC Lidocaine HCl (Lidocaine Pf 2% Vial) 5 ml STK-MED ONCE .ROUTE ; Start 11/02/18 at 12:27; Stop 11/02/18 at 12:27; Status DC Active Scripts Active Thera-M Tablet (Multivits,Ca,Minerals/Iron/Fa) 1 Each Tablet 1 Tab PO DAILY MDD 1 Budesonide 0.5 Mg/2 Ml Ampul.neb 0.5 Mg NEB RTBID MDD 1 Guaifenesin Dm Syrup (Guaifenesin/Dextromethorphan) 5 Ml Syrup 10 Ml PO PRN Q6HRS PRN MDD 1 Proair Hfa (Albuterol Sulfate) 8.5 Gm Hfa.aer.ad 2.5 Mg NEB PRN Q4HRS PRN MDD 1 Poly-Iron (Iron Polysaccharides Complex) 150 Mg Capsule 150 Mg PO BID MDD 1 Levaquin (Levofloxacin) 500 Mg Tablet 500 Mg PO DAILY06 MDD 1 5 Days Oxycodone Hcl Immed.release (Oxycodone Hcl) 5 Mg Tablet 10 Mg PO PRN Q4HRS PRN MDD 1 Meloxicam 7.5 Mg Tablet 7.5 Mg PO DAILY Reported Novolog Flexpen (Insulin Aspart) 100 Unit/1 Ml Insuln.pen 30 SQ TIDWMEALS Aspirin 325 Mg Tablet 0.5 Tab PO DAILY Senna-S Tablet (Sennosides/Docusate Sodium) 1 Each Tablet 1 Each PO BID Nyamyc (Nystatin) 15 Gm Powder 15 Gm TP DAILY Culturelle (Lactobacillus Rhamnosus Gg) 1 Each Capsule 1 Each PO BIDWMEALS Lantus Solostar (Insulin Glargine,Hum.rec.anlog) 100 Unit/1 Ml Insuln.pen 45 Unit SQ QHS Hydralazine Hcl 25 Mg Tablet 2 Tab PO TID [facility] Glucosamine-Chondr Tablet (Glucosamine Hcl/Chondr [place] A Na) 1 Each Tablet 2 Each PO DAILY Flonase Allergy Relief (Fluticasone Propionate) 9.9 Ml Spencer.susp 2 Sprays NS DAILY Diphenhydramine Hcl 50 Mg Capsule 25 Mg PO Q6HRS PRN Vitamin D3 (Cholecalciferol (Vitamin D3)) 1,000 Unit Tablet 2,000 Unit PO DAILY Atorvastatin Calcium 20 Mg Tablet DAILY Furosemide 20 Mg Tablet 40 Mg BID Lisinopril 40 Mg Tablet 40 DAILY Carvedilol 25 Mg Tablet 25 BID Pantoprazole Sodium (Pantoprazole Sodium) 40 Mg Tablet.dr WEBB Vitals/I & O Vital Sign - Last 24 Hours 11/01/18 11/01/18 11/01/18 11/01/18 14:43 14:47 15:00 15:34 Temp 98.6 98.6 Pulse 70 87 95 Resp 20 B/P (MAP) 159/74 169/73 144/34 (70) Pulse Ox 97 98 O2 Delivery Room Air Room Air 11/01/18 11/01/18 11/01/18 11/01/18 19:45 19:50 19:55 20:00 Temp 98.9 98.9 Pulse 90 105 114 Resp 20 B/P (MAP) 150/65 (93) 139/60 (86) 82/58 (66) Pulse Ox 98 96 O2 Delivery Room Air Room Air 11/01/18 11/01/18 11/01/18 11/02/18 20:00 21:02 23:15 03:25 Temp 98.3 98.4 98.3 98.4 Pulse 114 85 92 Resp 20 20 B/P (MAP) 82/58 159/61 (93) 137/45 (75) Pulse Ox 96 98 O2 Delivery Room Air Room Air Nasal Cannula O2 Flow Rate 2.0 11/02/18 11/02/18 11/02/18 11/02/18 07:00 08:00 08:50 08:50 Temp 98.1 98.1 Pulse 75 75 75 Resp 20 B/P (MAP) 169/75 (106) 169/75 169/75 Pulse Ox 99 O2 Delivery Nasal Cannula Room Air O2 Flow Rate 2.0 11/02/18 11/02/18 11/02/18 11/02/18 08:55 10:52 11:58 12:36 Temp 98.1 97.8 97.5 98.1 97.8 97.5 Pulse 79 94 74 Resp 20 20 18 B/P (MAP) 167/62 (97) 154/67 Pulse Ox 98 99 98 97 O2 Delivery Room Air Nasal Cannula Room Air O2 Flow Rate 2.0 2.0 Intake and Output 11/01/18 11/01/18 11/02/18 15:00 23:00 07:00 Intake Total 751 ml 250 ml 300 ml Output Total 750 ml 1875 ml 1200 ml Balance 1 ml -1625 ml -900 ml VENTURA JULES MD Nov 02, 2018 12:47
--- NOTE | 2018-11-02 14:03 | PDOC2 ---
CONSULT Date of Consult Date of Consult DATE: 11/02/18 TIME: 13:57 Reason for Consult Reason for Consult: RENAL FAILURE Referring Physician Referring Physician: GALILEO Identification/Chief Complaint Chief Complaint PASSING OUT Source Source: Chart review, Patient History of Present Illness Reason for Visit: THIS IS A 73 YR WHO STATES THAT HE ABOUT PASSED OUT. BG OF 23 NOTED AND HE WAS BROUGHT IN TO THE HOSPITAL. CR OF 1.5 AND THIS IS CHRONIC IN NATURE. HAS HX OF DM II AND HTN. NO OTHER HX. STATES HE CAN VOID WELL. HAS [facility] AND GI W/U ONGOING FOR THIS. BP HIGH BUT HIS HOME MEDS HAVE NOT BEEN RESTARTED YET. HAS USED OCC NSAIDS AND HAS ALSO BEEN TAKING MOBIC PRN. UA IS NEG Past Medical History Cardiovascular: HTN, Hyperlipidemia, Other (PAD) Pulmonary: Other (JASEN with CPAP) Heme/Onc: Anemia NOS Psych: Depression Musculoskeletal: Osteoarthritis, Other (DDD) Renal/: Chronic renal insuff, Benign prostatic enlarg. Endocrine: Diabetes Past Surgical History Past Surgical History: Other (right rotator cuff surgery, left TMA ) Family History Family History: Diabetes, Hypertension Social History Quit ( ) ALCOHOL: none Drugs: None Lives: with Family Current Problem List Problem List Problems Medical Problems: (1) Anemia in CKD (chronic kidney disease) Status: Chronic (2) CKD (chronic kidney disease) Status: Chronic (3) DM2 (diabetes mellitus, type 2) Status: Chronic (4) Fall Status: Acute (5) HTN (hypertension) Status: Chronic (6) Hypoglycemia Status: Acute (7) OA (osteoarthritis) of knee Status: Chronic Current Medications Current Medications Current Medications Dextrose (Dextrose 50%-Water Syringe) 25 gm 1X ONCE IV Last administered on 10/31/18at 23:15; Start 10/31/18 at 23:15; Stop 10/31/18 at 23:31; Status DC Dextrose (Dextrose 50%-Water Syringe) 25 gm STK-MED ONCE IV ; Start 10/31/18 at 23:12; Stop 10/31/18 at 23:12; Status DC Dextrose/Sodium Chloride 1,000 ml @ 100 mls/hr 1X ONCE IV Last administered on 10/31/18at 23:23; Start 10/31/18 at 23:15; Stop 11/01/18 at 09:14; Status DC Ondansetron HCl (Zofran) 4 mg PRN Q8HRS PRN IV NAUSEA/VOMITING; Start 11/01/18 at 00:15; Stop 11/02/18 at 00:14; Status DC Acetaminophen (Tylenol) 650 mg PRN Q4HRS PRN PO FEVER; Start 11/01/18 at 00:15; Stop 11/02/18 at 00:14; Status DC Nystatin (Nystop) 1 ritu BID TP Last administered on 11/02/18 08:50; Start 11/01/18 at 09:00 Albuterol Sulfate (Ventolin Neb Soln) 2.5 mg PRN Q4HRS PRN NEB SHORTNESS OF BREATH; Start 11/01/18 at 09:00 Aspirin (Jacquelin Aspirin) 162.5 mg DAILY PO Last administered on 11/02/18 08:50; Start 11/01/18 at 09:00 Atorvastatin Calcium (Lipitor) 20 mg QHS PO Last administered on 11/01/18 21:02; Start 11/01/18 at 21:00 Budesonide (Pulmicort) 0.5 mg RTBID NEB Last administered on 11/02/18 08:53; Start 11/01/18 at 09:00 Vitamin D (Vitamin D3) 2,000 unit DAILY PO Last administered on 11/02/18 08:50; Start 11/01/18 at 09:00 Guaifenesin (Robitussin Dm) 10 ml PRN Q6HRS PRN PO COUGH, 1st CHOICE; Start 11/01/18 at 09:00 Hydralazine HCl (Apresoline) 50 mg TID PO Last administered on 11/02/18 08:50; Start 11/01/18 at 09:00 Polysaccharide Iron Complex (Niferex 150) 150 mg BID PO Last administered on 11/02/18 08:50; Start 11/01/18 at 09:00 Multivitamins (Thera M Plus) 1 tab DAILY PO Last administered on 11/02/18 08:50; Start 11/01/18 at 09:00 Nystatin (Nystop) 15 ritu DAILY TP ; Start 11/01/18 at 09:00; Stop 11/01/18 at 16:41; Status DC Pantoprazole Sodium (Protonix) 40 mg DAILYAC PO Last administered on 8/26/19at 08:50; Start 11/01/18 at 11:30 Senna/Docusate Sodium (Senna Plus) 1 tab BID PO Last administered on 11/02/18at 08:50; Start 11/01/18 at 09:00 Psyllium Hydrophilic Mucilloid (Metamucil Fiber Packet) 1 pkt DAILY PO ; Start 11/01/18 at 09:00 Polyethylene Glycol (miraLAX PACKET) 17 gm PRN DAILY PRN PO CONSTIPATION; Start 11/01/18 at 09:00 Dextrose/Sodium Chloride 1,000 ml @ 50 mls/hr Q20H IV Last administered on 11/01/18at 11:52; Start 11/01/18 at 11:45; Stop 11/01/18 at 14:11; Status DC Potassium Chloride (Klor-Con) 30 meq DAILYWBKFT PO Last administered on 11/02/18at 08:50; Start 11/01/18 at 15:00 Dextrose (Dextrose 50%-Water Syringe) 12.5 gm PRN Q15MIN PRN IV SEE COMMENTS; Start 11/01/18 at 14:15 Dextrose 250 ml PRN Q15MIN PRN IV SEE COMMENTS; Start 11/01/18 at 14:15; Status UNV Amlodipine Besylate (Norvasc) 5 mg DAILY PO Last administered on 11/02/18at 08:50; Start 11/01/18 at 15:00 Pantoprazole Sodium (Protonix) 40 mg DAILYAC PO ; Start 11/02/18 at 07:30; Status UNV Acetaminophen (Tylenol) 650 mg PRN Q6HRS PRN PO PAIN; Start 11/02/18 at 01:45 Tramadol HCl (Ultram) 50 mg PRN Q6HRS PRN PO PAIN Last administered on 11/02/18at 02:05; Start 11/02/18 at 01:45 Labetalol HCl (Normodyne Iv Push) 10 mg PRN Q2HR PRN IVP HYPERTENSION; Start 11/02/18 at 08:30 Ringer's Solution 1,000 ml @ 75 mls/hr 1X ONCE IV Last administered on 11/02/18at 11:59; Start 11/02/18 at 12:00; Stop 11/03/18 at 01:19 Propofol 20 ml @ As Directed STK-MED ONCE IV ; Start 11/02/18 at 12:27; Stop 11/02/18 at 12:27; Status DC Lidocaine HCl (Lidocaine Pf 2% Vial) 5 ml STK-MED ONCE .ROUTE ; Start 11/02/18 at 12:27; Stop 11/02/18 at 12:27; Status DC Active Scripts Active Thera-M Tablet (Multivits,Ca,Minerals/Iron/Fa) 1 Each Tablet 1 Tab PO DAILY MDD 1 Budesonide 0.5 Mg/2 Ml Ampul.neb 0.5 Mg NEB RTBID MDD 1 Guaifenesin Dm Syrup (Guaifenesin/Dextromethorphan) 5 Ml Syrup 10 Ml PO PRN Q6HRS PRN MDD 1 Proair Hfa (Albuterol Sulfate) 8.5 Gm Hfa.aer.ad 2.5 Mg NEB PRN Q4HRS PRN MDD 1 Poly-Iron (Iron Polysaccharides Complex) 150 Mg Capsule 150 Mg PO BID MDD 1 Levaquin (Levofloxacin) 500 Mg Tablet 500 Mg PO DAILY06 MDD 1 5 Days Oxycodone Hcl Immed.release (Oxycodone Hcl) 5 Mg Tablet 10 Mg PO PRN Q4HRS PRN MDD 1 Meloxicam 7.5 Mg Tablet 7.5 Mg PO DAILY Reported Novolog Flexpen (Insulin Aspart) 100 Unit/1 Ml Insuln.pen 30 SQ TIDWMEALS Aspirin 325 Mg Tablet 0.5 Tab PO DAILY Senna-S Tablet (Sennosides/Docusate Sodium) 1 Each Tablet 1 Each PO BID Nyamyc (Nystatin) 15 Gm Powder 15 Gm TP DAILY Culturelle (Lactobacillus Rhamnosus Gg) 1 Each Capsule 1 Each PO BIDWMEALS Lantus Solostar (Insulin Glargine,Hum.rec.anlog) 100 Unit/1 Ml Insuln.pen 45 Unit SQ QHS Hydralazine Hcl 25 Mg Tablet 2 Tab PO TID [facility] Glucosamine-Chondr Tablet (Glucosamine Hcl/Chondr [place] A Na) 1 Each Tablet 2 Each PO DAILY Flonase Allergy Relief (Fluticasone Propionate) 9.9 Ml [place].susp 2 Sprays NS DAILY Diphenhydramine Hcl 50 Mg Capsule 25 Mg PO Q6HRS PRN Vitamin D3 (Cholecalciferol (Vitamin D3)) 1,000 Unit Tablet 2,000 Unit PO DAILY Atorvastatin Calcium 20 Mg Tablet DAILY Furosemide 20 Mg Tablet 40 Mg BID Lisinopril 40 Mg Tablet 40 DAILY Carvedilol 25 Mg Tablet 25 BID Pantoprazole Sodium (Pantoprazole Sodium) 40 Mg Tablet.dr DAILY Allergies Allergies: Coded Allergies: cefuroxime (Verified Allergy, Intermediate, 11/02/18) piperacillin (Verified Adverse Reaction, Intermediate, RASH, 11/02/18) TOLERATED ERTAPENEM tazobactam (Verified Adverse Reaction, Intermediate, RASH, 11/02/18) TOLERATED ERTAPENEM zolpidem (Verified Adverse Reaction, Intermediate, HALLUCINATIONS, 11/02/18) glipizide (Verified Adverse Reaction, Mild, SENSITIVITY TO SUN, 11/02/18) Uncoded Allergies: DUST (Allergy, Mild, SNEEZING, 10/25/15) ROS General: YES: Appetite PSYCHOLOGICAL ROS: YES: Anxiety, Depression Eyes: Yes Decreased vision HEENT: YES: Heacaches Respiratory: YES: Cough Gastrointestinal: Yes Nausea, Yes Abdominal Pain Genitourinary: YES Other (NOCTURIA) Musculoskeletal: Yes Muscular Weakness Neurological: Yes Weakness Skin: Yes Dry Skin Physical Exam General: Alert, Oriented X3, Cooperative, No acute distress HEENT: Atraumatic, PERRLA Lungs: Clear to auscultation, Normal air movement Heart: Regular rate, Normal S2 Abdomen: Normal bowel sounds Neuro: Normal speech, Cranial nerves 3-12 NL Psych/Mental Status: Mental status NL, Mood NL MUSCULOSKELETAL: No joint tenderness, No deformity, No swelling Vitals VITALS Vital Signs Date Time Temp Pulse Resp B/P (MAP) Pulse Ox O2 Delivery O2 Flow Rate FiO2 11/02/18 13:05 74 18 165/64 98 Room Air 11/02/18 12:51 97.5 97.5 11/02/18 12:36 2.0 Labs Labs Laboratory Tests Test 10/31/18 22:51 10/31/18 22:58 10/31/18 23:11 10/31/18 23:36 Glucose (Fingerstick) 66 mg/dL (70-99) 53 mg/dL (70-99) 128 mg/dL (70-99) White Blood Count 12.7 x10^3/uL (4.0-11.0) Red Blood Count 3.64 x10^6/uL (4.30-5.70) Hemoglobin 10.4 g/dL (13.0-17.5) Hematocrit 31.2 % (39.0-53.0) Mean Corpuscular Volume 86 fL (79-100) Mean Corpuscular Hemoglobin 29 pg (25-35) Mean Corpuscular Hemoglobin Concent 33 g/dL (31-37) Red Cell Distribution Width 15.2 % (11.5-14.5) Platelet Count 259 x10^3/uL (140-400) Neutrophils (%) (Auto) 80 % (31-73) Lymphocytes (%) (Auto) 9 % (24-48) Monocytes (%) (Auto) 10 % (0-9) Eosinophils (%) (Auto) 1 % (0-3) Basophils (%) (Auto) 0 % (0-3) Neutrophils # (Auto) 10.2 x10^3/uL (1.8-7.7) Lymphocytes # (Auto) 1.2 x10^3/uL (1.0-4.8) Monocytes # (Auto) 1.2 x10^3/uL (0.0-1.1) Eosinophils # (Auto) 0.1 x10^3/uL (0.0-0.7) Basophils # (Auto) 0.0 x10^3/uL (0.0-0.2) Sodium Level 137 mmol/L (136-145) Potassium Level 3.4 mmol/L (3.5-5.1) Chloride Level 102 mmol/L (98-107) Carbon Dioxide Level 22 mmol/L (21-32) Anion Gap 13 (6-14) Blood Urea Nitrogen 49 mg/dL (8-26) Creatinine 1.8 mg/dL (0.7-1.3) Estimated GFR (Cockcroft-Gault) 37.4 BUN/Creatinine Ratio 27 (6-20) Glucose Level 56 mg/dL (70-99) Hemoglobin A1c 6.8 % (4.8-5.6) Calcium Level 8.7 mg/dL (8.5-10.1) Total Bilirubin 0.3 mg/dL (0.2-1.0) Aspartate Amino Transf (AST/SGOT) 16 U/L (15-37) Alanine Aminotransferase (ALT/SGPT) 23 U/L (16-63) Alkaline Phosphatase 110 U/L (46-116) Total Protein 7.4 g/dL (6.4-8.2) Albumin 3.1 g/dL (3.4-5.0) Albumin/Globulin Ratio 0.7 (1.0-1.7) Test 11/01/18 00:00 11/01/18 00:05 11/01/18 00:18 11/01/18 01:08 Glucose (Fingerstick) 126 mg/dL (70-99) 159 mg/dL (70-99) Troponin I Quantitative < 0.017 ng/mL (0.000-0.055) Urine Collection Type Unknown Urine Color Yellow Urine Clarity Clear Urine pH 5.0 Urine Specific [place] 1.015 Urine Protein Negative mg/dL (NEG-TRACE) Urine Glucose (UA) Negative mg/dL (NEG) Urine Ketones (Stick) Negative mg/dL (NEG) Urine Blood Negative (NEG) Urine Nitrite Negative (NEG) Urine Bilirubin Negative (NEG) Urine Urobilinogen Dipstick 0.2 mg/dL (0.2 mg/dL) Urine Leukocyte Esterase Negative (NEG) Urine RBC Occ /HPF (0-2) Urine WBC Occ /HPF (0-4) Urine Squamous Epithelial Cells Few /LPF Urine Bacteria 0 /HPF (0-FEW) Urine Hyaline Casts Few /HPF Test 11/01/18 03:35 11/01/18 04:39 11/01/18 06:35 11/01/18 08:44 Glucose (Fingerstick) 201 mg/dL (70-99) 217 mg/dL (70-99) 241 mg/dL (70-99) 223 mg/dL (70-99) Test 11/01/18 11:15 11/01/18 13:25 11/01/18 17:21 11/01/18 20:53 Glucose (Fingerstick) 214 mg/dL (70-99) 245 mg/dL (70-99) 188 mg/dL (70-99) 210 mg/dL (70-99) Test 11/02/18 06:30 11/02/18 07:30 White Blood Count 11.5 x10^3/uL (4.0-11.0) Red Blood Count 3.58 x10^6/uL (4.30-5.70) Hemoglobin 10.1 g/dL (13.0-17.5) Hematocrit 30.7 % (39.0-53.0) Mean Corpuscular Volume 86 fL (79-100) Mean Corpuscular Hemoglobin 28 pg (25-35) Mean Corpuscular Hemoglobin Concent 33 g/dL (31-37) Red Cell Distribution Width 15.5 % (11.5-14.5) Platelet Count 248 x10^3/uL (140-400) Neutrophils (%) (Auto) 76 % (31-73) Lymphocytes (%) (Auto) 13 % (24-48) Monocytes (%) (Auto) 9 % (0-9) Eosinophils (%) (Auto) 1 % (0-3) Basophils (%) (Auto) 0 % (0-3) Neutrophils # (Auto) 8.8 x10^3/uL (1.8-7.7) Lymphocytes # (Auto) 1.5 x10^3/uL (1.0-4.8) Monocytes # (Auto) 1.1 x10^3/uL (0.0-1.1) Eosinophils # (Auto) 0.1 x10^3/uL (0.0-0.7) Basophils # (Auto) 0.0 x10^3/uL (0.0-0.2) Sodium Level 139 mmol/L (136-145) Potassium Level 4.7 mmol/L (3.5-5.1) Chloride Level 105 mmol/L (98-107) Carbon Dioxide Level 24 mmol/L (21-32) Anion Gap 10 (6-14) Blood Urea Nitrogen 41 mg/dL (8-26) Creatinine 1.5 mg/dL (0.7-1.3) Estimated GFR (Cockcroft-Gault) 46.1 Glucose Level 152 mg/dL (70-99) Calcium Level 9.2 mg/dL (8.5-10.1) Glucose (Fingerstick) 154 mg/dL (70-99) Laboratory Tests Test 11/01/18 17:21 11/01/18 20:53 11/02/18 06:30 11/02/18 07:30 Glucose (Fingerstick) 188 mg/dL (70-99) 210 mg/dL (70-99) 154 mg/dL (70-99) White Blood Count 11.5 x10^3/uL (4.0-11.0) Red Blood Count 3.58 x10^6/uL (4.30-5.70) Hemoglobin 10.1 g/dL (13.0-17.5) Hematocrit 30.7 % (39.0-53.0) Mean Corpuscular Volume 86 fL (79-100) Mean Corpuscular Hemoglobin 28 pg (25-35) Mean Corpuscular Hemoglobin Concent 33 g/dL (31-37) Red Cell Distribution Width 15.5 % (11.5-14.5) Platelet Count 248 x10^3/uL (140-400) Neutrophils (%) (Auto) 76 % (31-73) Lymphocytes (%) (Auto) 13 % (24-48) Monocytes (%) (Auto) 9 % (0-9) Eosinophils (%) (Auto) 1 % (0-3) Basophils (%) (Auto) 0 % (0-3) Neutrophils # (Auto) 8.8 x10^3/uL (1.8-7.7) Lymphocytes # (Auto) 1.5 x10^3/uL (1.0-4.8) Monocytes # (Auto) 1.1 x10^3/uL (0.0-1.1) Eosinophils # (Auto) 0.1 x10^3/uL (0.0-0.7) Basophils # (Auto) 0.0 x10^3/uL (0.0-0.2) Sodium Level 139 mmol/L (136-145) Potassium Level 4.7 mmol/L (3.5-5.1) Chloride Level 105 mmol/L (98-107) Carbon Dioxide Level 24 mmol/L (21-32) Anion Gap 10 (6-14) Blood Urea Nitrogen 41 mg/dL (8-26) Creatinine 1.5 mg/dL (0.7-1.3) Estimated GFR (Cockcroft-Gault) 46.1 Glucose Level 152 mg/dL (70-99) Calcium Level 9.2 mg/dL (8.5-10.1) Assessment/Plan Assessment/Plan IMP CKD STAGE 3-CR OF 1.5 STABLE AND AT BASELINE DM II HTN HYPOGLYCEMIA SYNCOPE ANEMIA PLAN CORRECT BS EGD AVOID NSAIDS HYDRATE TILL PO IS GOOD AGREE WITH INCREASING NORVASC ALSO OK TO RESUME HOME MED LISINOPRIL WILL FOLLOW DENG ARVIZU MD Nov 02, 2018 14:03
[2018-11-02 14:52] VITALS: BP 147/88
--- NOTE | 2018-11-02 15:23 | NUR ---
wound care patient seen per wound care consult. see wound assessment. patient has a DFU to the right 2nd toe, the wound was cleaned, and redressed with current recommendations from the wound care clinic of Iodoflex with a Telfa dressing, change every 2-3 days. wound care will continue to f/u. patient to f/u in the wound clinic after discharge.
--- NOTE | 2018-11-02 15:40 | NUR ---
SS following for discharge planning. SS reviewed pt chart. Pt is from home with spouse and is currently requiring oxygen. PT recommended home with assistance. Nurse navigator to meet with pt to discuss home healthcare options. Pt's RN notified.
--- NOTE | 2018-11-02 18:54 | PDOC2 ---
NEUROLOGY CONSULT Date of Admission Date of Admission DATE: 11/02/18 TIME: 18:44 Reason for Consult Reason for Consult: IMPRESSION: Syncopal episode. Hypoglycemia, glucose 23. Hyperglycemia, glucose 268. Metabolic encephalopathy. Fall. DM. HTN. Renal failure. CAD. Carotid A stenosis 50-69%. Morbid obesity. RECOMMENDATIONS/PLAN: EEG. Treat medical diseases. OT/PT. Weight reduction. HISTORY OF THE PRESENT ILLNESS: This is a 73-year-old male patient who presented secondary to syncopal episode. Per his statement, he took his usual insulin Friday night, but did not eat. He stood up out of the chair but passed out, falling on to the coffee table.His called EMS. Blood glucose 23 upon EMS arrival, so he was brought to [facility] after initial treatment in scene. PAST MEDICAL HISTORY Cardiovascular: HTN, Hyperlipidemia, Other (PAD) Pulmonary: Other (JASEN with CPAP) Heme/Onc: Anemia NOS Psych: Depression Musculoskeletal: Osteoarthritis, Other (DDD) Renal/: Chronic renal insuff, Benign prostatic enlarg. Endocrine: Diabetes PAST SURGICAL HISTORY Past Surgical History: Other (right rotator cuff surgery, left TMA ) FAMILY HISTORY Family History: Diabetes, Hypertension SOCIAL HISTORY Smoke: Quit ( ) ALCOHOL: none Drugs: None Lives: with Family ALLERGIES Coded Allergies: cefuroxime (Verified Allergy, Intermediate, 05/11/16) piperacillin (Verified Adverse Reaction, Intermediate, RASH, 10/25/15) TOLERATED ERTAPENEM tazobactam (Verified Adverse Reaction, Intermediate, RASH, 10/25/15) TOLERATED ERTAPENEM zolpidem (Verified Adverse Reaction, Intermediate, HALLUCINATIONS, 10/25/15) glipizide (Verified Adverse Reaction, Mild, SENSITIVITY TO SUN, 10/25/15) Uncoded Allergies: DUST (Allergy, Mild, SNEEZING, 10/25/15) ROS 14 point ROS conducted with pertinent positives noted above in HPI. MEDICATIONS: Refer to MAR PHYSICAL EXAMINATION: General appearance is in subacute distress. HEENT: Normocephalic and nontraumatic. Eyes, nose, ears, and throat are unremarkable. Neck is supple. No lymphadenopathy. No crepitus. Cardiovascular: S1, S2, regular rate and rhythm. Pulmonary: Clear to auscultation bilaterally. Abdomen: Bowel sounds are positive. Abdomen is soft, nontender, and nondistended. Extremities: Chronic venous stasis noted in LE. No restriction of range of motion NEUROLOGICAL EXAMINATION: Awake. Oriented to time, place and person. PERRL. EOMI. CN: no focal findings. Muscle tone: within normal. Muscle strength: 4 UE, 3 LE. DTR: 0-1 Plantar reflex: Neutral response bilaterally Gait: not examined in chair. Sensory exam: no abnormal findings. No cerebellar signs elicited. F-T-N test fine. Current Medications Current Medications Current Medications Dextrose (Dextrose 50%-Water Syringe) 25 gm 1X ONCE IV Last administered on 10/31/18at 23:15; Start 10/31/18 at 23:15; Stop 10/31/18 at 23:31; Status DC Dextrose (Dextrose 50%-Water Syringe) 25 gm STK-MED ONCE IV ; Start 10/31/18 at 23:12; Stop 10/31/18 at 23:12; Status DC Dextrose/Sodium Chloride 1,000 ml @ 100 mls/hr 1X ONCE IV Last administered on 10/31/18at 23:23; Start 10/31/18 at 23:15; Stop 11/01/18 at 09:14; Status DC Ondansetron HCl (Zofran) 4 mg PRN Q8HRS PRN IV NAUSEA/VOMITING; Start 11/01/18 at 00:15; Stop 11/02/18 at 00:14; Status DC Acetaminophen (Tylenol) 650 mg PRN Q4HRS PRN PO FEVER; Start 11/01/18 at 00:15; Stop 11/02/18 at 00:14; Status DC Nystatin (Nystop) 1 ritu BID TP Last administered on 11/02/18at 08:50; Start 11/01/18 at 09:00 Albuterol Sulfate (Ventolin Neb Soln) 2.5 mg PRN Q4HRS PRN NEB SHORTNESS OF BREATH; Start 11/01/18 at 09:00 Aspirin (Jacquelin Aspirin) 162.5 mg DAILY PO Last administered on 11/02/18at 08:50; Start 11/01/18 at 09:00 Atorvastatin Calcium (Lipitor) 20 mg QHS PO Last administered on 11/01/18at 21:02; Start 11/01/18 at 21:00 Budesonide (Pulmicort) 0.5 mg RTBID NEB Last administered on 8/26/19at 08:53; Start 11/01/18 at 09:00 Vitamin D (Vitamin D3) 2,000 unit DAILY PO Last administered on 11/02/18 08:50; Start 11/01/18 at 09:00 Guaifenesin (Robitussin Dm) 10 ml PRN Q6HRS PRN PO COUGH, 1st CHOICE; Start 11/01/18 at 09:00 Hydralazine HCl (Apresoline) 50 mg TID PO Last administered on 11/02/18 08:50; Start 11/01/18 at 09:00 Polysaccharide Iron Complex (Niferex 150) 150 mg BID PO Last administered on 11/02/18 08:50; Start 11/01/18 at 09:00 Multivitamins (Thera M Plus) 1 tab DAILY PO Last administered on 11/02/18 08:50; Start 11/01/18 at 09:00 Nystatin (Nystop) 15 ritu DAILY TP ; Start 11/01/18 at 09:00; Stop 11/01/18 at 16:41; Status DC Pantoprazole Sodium (Protonix) 40 mg DAILYAC PO Last administered on 11/02/18 08:50; Start 11/01/18 at 11:30 Senna/Docusate Sodium (Senna Plus) 1 tab BID PO Last administered on 11/02/18 08:50; Start 11/01/18 at 09:00 Psyllium Hydrophilic Mucilloid (Metamucil Fiber Packet) 1 pkt DAILY PO ; Start 11/01/18 at 09:00 Polyethylene Glycol (miraLAX PACKET) 17 gm PRN DAILY PRN PO CONSTIPATION; Start 11/01/18 at 09:00 Dextrose/Sodium Chloride 1,000 ml @ 50 mls/hr Q20H IV Last administered on 11/01/18at 11:52; Start 11/01/18 at 11:45; Stop 11/01/18 at 14:11; Status DC Potassium Chloride (Klor-Con) 30 meq DAILYWBKFT PO Last administered on 11/02/18at 08:50; Start 11/01/18 at 15:00 Dextrose (Dextrose 50%-Water Syringe) 12.5 gm PRN Q15MIN PRN IV SEE COMMENTS; Start 11/01/18 at 14:15 Dextrose 250 ml PRN Q15MIN PRN IV SEE COMMENTS; Start 11/01/18 at 14:15; Status UNV Amlodipine Besylate (Norvasc) 5 mg DAILY PO Last administered on 11/02/18at 08:50; Start 11/01/18 at 15:00 Pantoprazole Sodium (Protonix) 40 mg DAILYAC PO ; Start 11/02/18 at 07:30; Status UNV Acetaminophen (Tylenol) 650 mg PRN Q6HRS PRN PO PAIN; Start 11/02/18 at 01:45 Tramadol HCl (Ultram) 50 mg PRN Q6HRS PRN PO PAIN Last administered on 11/02/18at 02:05; Start 11/02/18 at 01:45 Labetalol HCl (Normodyne Iv Push) 10 mg PRN Q2HR PRN IVP HYPERTENSION; Start 11/02/18 at 08:30 Ringer's Solution 1,000 ml @ 75 mls/hr 1X ONCE IV Last administered on 11/02/18at 11:59; Start 11/02/18 at 12:00; Stop 11/03/18 at 01:19 Propofol 20 ml @ As Directed STK-MED ONCE IV ; Start 11/02/18 at 12:27; Stop 11/02/18 at 12:27; Status DC Lidocaine HCl (Lidocaine Pf 2% Vial) 5 ml STK-MED ONCE .ROUTE ; Start 11/02/18 at 12:27; Stop 11/02/18 at 12:27; Status DC Active Scripts Active Thera-M Tablet (Multivits,Ca,Minerals/Iron/Fa) 1 Each Tablet 1 Tab PO DAILY MDD 1 Budesonide 0.5 Mg/2 Ml Ampul.neb 0.5 Mg NEB RTBID MDD 1 Guaifenesin Dm Syrup (Guaifenesin/Dextromethorphan) 5 Ml Syrup 10 Ml PO PRN Q6HRS PRN MDD 1 Proair Hfa (Albuterol Sulfate) 8.5 Gm Hfa.aer.ad 2.5 Mg NEB PRN Q4HRS PRN MDD 1 Poly-Iron (Iron Polysaccharides Complex) 150 Mg Capsule 150 Mg PO BID MDD 1 Levaquin (Levofloxacin) 500 Mg Tablet 500 Mg PO DAILY06 MDD 1 5 Days Oxycodone Hcl Immed.release (Oxycodone Hcl) 5 Mg Tablet 10 Mg PO PRN Q4HRS PRN MDD 1 Meloxicam 7.5 Mg Tablet 7.5 Mg PO DAILY Reported Novolog Flexpen (Insulin Aspart) 100 Unit/1 Ml Insuln.pen 30 SQ TIDWMEALS Aspirin 325 Mg Tablet 0.5 Tab PO DAILY Senna-S Tablet (Sennosides/Docusate Sodium) 1 Each Tablet 1 Each PO BID Nyamyc (Nystatin) 15 Gm Powder 15 Gm TP DAILY Culturelle (Lactobacillus Rhamnosus Gg) 1 Each Capsule 1 Each PO BIDWMEALS Lantus Solostar (Insulin Glargine,Hum.rec.anlog) 100 Unit/1 Ml Insuln.pen 45 Unit SQ QHS Hydralazine Hcl 25 Mg Tablet 2 Tab PO TID [facility] Glucosamine-Chondr Tablet (Glucosamine Hcl/Chondr [place] A Na) 1 Each Tablet 2 Each PO DAILY Flonase Allergy Relief (Fluticasone Propionate) 9.9 Ml [place].susp 2 Sprays NS DAILY Diphenhydramine Hcl 50 Mg Capsule 25 Mg PO Q6HRS PRN Vitamin D3 (Cholecalciferol (Vitamin D3)) 1,000 Unit Tablet 2,000 Unit PO DAILY Atorvastatin Calcium 20 Mg Tablet DAILY Furosemide 20 Mg Tablet 40 Mg BID Lisinopril 40 Mg Tablet 40 DAILY Carvedilol 25 Mg Tablet 25 BID Pantoprazole Sodium (Pantoprazole Sodium) 40 Mg Tablet. DAILY Allergies Allergies: Allergies Coded Allergies Type Severity Reaction Last Updated Verified cefuroxime Allergy Intermediate 11/02/18 Yes piperacillin Adverse Reaction Intermediate RASH 11/02/18 Yes tazobactam Adverse Reaction Intermediate RASH 11/02/18 Yes zolpidem Adverse Reaction Intermediate HALLUCINATIONS 11/02/18 Yes glipizide Adverse Reaction Mild SENSITIVITY TO SUN 11/02/18 Yes Uncoded Allergies Type Severity Reaction Last Updated Verified DUST Allergy Mild SNEEZING 10/25/15 ROS Review of System The patient denies any associated fevers, chills, headache, ear pain, rhinorrhea, sore throat, stiff neck, productive cough, chest pain, shortness of breath, back or flank pain, abdominal pain, nausea, vomiting, diarrhea, constipation, dysuria, rash, numbness, weakness, tingling, incontinence, difficulty ambulating, or diaphoresis. Physical Exam Physical Exam General: Well developed, well nourished, no acute distress, well appearing HEENT: Pupils equally round and reactive to light, EOMI, no discharge, normal conjunctiva Neck: Supple, no nuchal rigidity, no JVD, trachea midline, no tenderness Cardiac: RRR, no murmurs, no gallops, no rubs Chest/Lungs: CTAB, no wheeze, no rhonchi, no crackles Abdomen: soft, non-distended, no guarding, no peritoneal signs, non-tender Back: No tenderness Extremities: no edema, pulses intact, non-tender,capillary refill <3 sec bilateral upper and lower extremities, Neuro: Alert and oriented x 4, no focal deficits, normal speech Vitals Vitals: Vital Signs Date Time Temp Pulse Resp B/P (MAP) Pulse Ox O2 Delivery O2 Flow Rate FiO2 11/02/18 14:52 98.0 85 20 147/88 (107) 99 Nasal Cannula 2.0 98.0 Labs Labs Laboratory Tests Test 10/31/18 22:51 10/31/18 22:58 10/31/18 23:11 10/31/18 23:36 Glucose (Fingerstick) 66 mg/dL (70-99) 53 mg/dL (70-99) 128 mg/dL (70-99) White Blood Count 12.7 x10^3/uL (4.0-11.0) Red Blood Count 3.64 x10^6/uL (4.30-5.70) Hemoglobin 10.4 g/dL (13.0-17.5) Hematocrit 31.2 % (39.0-53.0) Mean Corpuscular Volume 86 fL (79-100) Mean Corpuscular Hemoglobin 29 pg (25-35) Mean Corpuscular Hemoglobin Concent 33 g/dL (31-37) Red Cell Distribution Width 15.2 % (11.5-14.5) Platelet Count 259 x10^3/uL (140-400) Neutrophils (%) (Auto) 80 % (31-73) Lymphocytes (%) (Auto) 9 % (24-48) Monocytes (%) (Auto) 10 % (0-9) Eosinophils (%) (Auto) 1 % (0-3) Basophils (%) (Auto) 0 % (0-3) Neutrophils # (Auto) 10.2 x10^3/uL (1.8-7.7) Lymphocytes # (Auto) 1.2 x10^3/uL (1.0-4.8) Monocytes # (Auto) 1.2 x10^3/uL (0.0-1.1) Eosinophils # (Auto) 0.1 x10^3/uL (0.0-0.7) Basophils # (Auto) 0.0 x10^3/uL (0.0-0.2) Sodium Level 137 mmol/L (136-145) Potassium Level 3.4 mmol/L (3.5-5.1) Chloride Level 102 mmol/L (98-107) Carbon Dioxide Level 22 mmol/L (21-32) Anion Gap 13 (6-14) Blood Urea Nitrogen 49 mg/dL (8-26) Creatinine 1.8 mg/dL (0.7-1.3) Estimated GFR (Cockcroft-Gault) 37.4 BUN/Creatinine Ratio 27 (6-20) Glucose Level 56 mg/dL (70-99) Hemoglobin A1c 6.8 % (4.8-5.6) Calcium Level 8.7 mg/dL (8.5-10.1) Total Bilirubin 0.3 mg/dL (0.2-1.0) Aspartate Amino Transf (AST/SGOT) 16 U/L (15-37) Alanine Aminotransferase (ALT/SGPT) 23 U/L (16-63) Alkaline Phosphatase 110 U/L (46-116) Total Protein 7.4 g/dL (6.4-8.2) Albumin 3.1 g/dL (3.4-5.0) Albumin/Globulin Ratio 0.7 (1.0-1.7) Test 11/01/18 00:00 11/01/18 00:05 11/01/18 00:18 11/01/18 01:08 Glucose (Fingerstick) 126 mg/dL (70-99) 159 mg/dL (70-99) Troponin I Quantitative < 0.017 ng/mL (0.000-0.055) Urine Collection Type Unknown Urine Color Yellow Urine Clarity Clear Urine pH 5.0 Urine Specific [place] 1.015 Urine Protein Negative mg/dL (NEG-TRACE) Urine Glucose (UA) Negative mg/dL (NEG) Urine Ketones (Stick) Negative mg/dL (NEG) Urine Blood Negative (NEG) Urine Nitrite Negative (NEG) Urine Bilirubin Negative (NEG) Urine Urobilinogen Dipstick 0.2 mg/dL (0.2 mg/dL) Urine Leukocyte Esterase Negative (NEG) Urine RBC Occ /HPF (0-2) Urine WBC Occ /HPF (0-4) Urine Squamous Epithelial Cells Few /LPF Urine Bacteria 0 /HPF (0-FEW) Urine Hyaline Casts Few /HPF Test 11/01/18 03:35 11/01/18 04:39 11/01/18 06:35 11/01/18 08:44 Glucose (Fingerstick) 201 mg/dL (70-99) 217 mg/dL (70-99) 241 mg/dL (70-99) 223 mg/dL (70-99) Test 11/01/18 11:15 11/01/18 13:25 11/01/18 17:21 11/01/18 20:53 Glucose (Fingerstick) 214 mg/dL (70-99) 245 mg/dL (70-99) 188 mg/dL (70-99) 210 mg/dL (70-99) Test 11/02/18 06:30 11/02/18 07:30 11/02/18 16:32 White Blood Count 11.5 x10^3/uL (4.0-11.0) Red Blood Count 3.58 x10^6/uL (4.30-5.70) Hemoglobin 10.1 g/dL (13.0-17.5) Hematocrit 30.7 % (39.0-53.0) Mean Corpuscular Volume 86 fL (79-100) Mean Corpuscular Hemoglobin 28 pg (25-35) Mean Corpuscular Hemoglobin Concent 33 g/dL (31-37) Red Cell Distribution Width 15.5 % (11.5-14.5) Platelet Count 248 x10^3/uL (140-400) Neutrophils (%) (Auto) 76 % (31-73) Lymphocytes (%) (Auto) 13 % (24-48) Monocytes (%) (Auto) 9 % (0-9) Eosinophils (%) (Auto) 1 % (0-3) Basophils (%) (Auto) 0 % (0-3) Neutrophils # (Auto) 8.8 x10^3/uL (1.8-7.7) Lymphocytes # (Auto) 1.5 x10^3/uL (1.0-4.8) Monocytes # (Auto) 1.1 x10^3/uL (0.0-1.1) Eosinophils # (Auto) 0.1 x10^3/uL (0.0-0.7) Basophils # (Auto) 0.0 x10^3/uL (0.0-0.2) Sodium Level 139 mmol/L (136-145) Potassium Level 4.7 mmol/L (3.5-5.1) Chloride Level 105 mmol/L (98-107) Carbon Dioxide Level 24 mmol/L (21-32) Anion Gap 10 (6-14) Blood Urea Nitrogen 41 mg/dL (8-26) Creatinine 1.5 mg/dL (0.7-1.3) Estimated GFR (Cockcroft-Gault) 46.1 Glucose Level 152 mg/dL (70-99) Calcium Level 9.2 mg/dL (8.5-10.1) Glucose (Fingerstick) 154 mg/dL (70-99) 268 mg/dL (70-99) Laboratory Tests Test 11/01/18 20:53 11/02/18 06:30 11/02/18 07:30 11/02/18 16:32 Glucose (Fingerstick) 210 mg/dL (70-99) 154 mg/dL (70-99) 268 mg/dL (70-99) White Blood Count 11.5 x10^3/uL (4.0-11.0) Red Blood Count 3.58 x10^6/uL (4.30-5.70) Hemoglobin 10.1 g/dL (13.0-17.5) Hematocrit 30.7 % (39.0-53.0) Mean Corpuscular Volume 86 fL (79-100) Mean Corpuscular Hemoglobin 28 pg (25-35) Mean Corpuscular Hemoglobin Concent 33 g/dL (31-37) Red Cell Distribution Width 15.5 % (11.5-14.5) Platelet Count 248 x10^3/uL (140-400) Neutrophils (%) (Auto) 76 % (31-73) Lymphocytes (%) (Auto) 13 % (24-48) Monocytes (%) (Auto) 9 % (0-9) Eosinophils (%) (Auto) 1 % (0-3) Basophils (%) (Auto) 0 % (0-3) Neutrophils # (Auto) 8.8 x10^3/uL (1.8-7.7) Lymphocytes # (Auto) 1.5 x10^3/uL (1.0-4.8) Monocytes # (Auto) 1.1 x10^3/uL (0.0-1.1) Eosinophils # (Auto) 0.1 x10^3/uL (0.0-0.7) Basophils # (Auto) 0.0 x10^3/uL (0.0-0.2) Sodium Level 139 mmol/L (136-145) Potassium Level 4.7 mmol/L (3.5-5.1) Chloride Level 105 mmol/L (98-107) Carbon Dioxide Level 24 mmol/L (21-32) Anion Gap 10 (6-14) Blood Urea Nitrogen 41 mg/dL (8-26) Creatinine 1.5 mg/dL (0.7-1.3) Estimated GFR (Cockcroft-Gault) 46.1 Glucose Level 152 mg/dL (70-99) Calcium Level 9.2 mg/dL (8.5-10.1) POLLO CLEMONS MD Nov 02, 2018 18:54
[2018-11-02 19:00] VITALS: BP 151/50
[2018-11-02] MEDS: ATORVASTATIN CALCIUM 20 MG TABLET PO SCH (21:28)
[2018-11-02 23:00] VITALS: BP 153/67
[2018-11-03 03:02] VITALS: BP 191/80
[2018-11-03 04:17] LABS: HEMATOCRIT 29.4 % (39.0-53.0); HEMOGLOBIN 9.7 g/dL (13.0-17.5)
[2018-11-03 04:30] LABS: CALCIUM 9.2 mg/dL (8.5-10.1); CREATININE 1.4 mg/dL (0.7-1.3); POTASSIUM 4.6 mmol/L (3.5-5.1)
[2018-11-03 07:00] VITALS: BP 154/72
[2018-11-03] MEDS: BUDESONIDE 0.5 MG/2 ML NEBU. NEB SCH (07:43)
[2018-11-03] MEDS: CHOLECALCIFEROL (VITAMIN D3) 1,000 UNIT TABLET PO SCH (08:52)
[2018-11-03] MEDS: MULTIVITAMIN with MINERAL TABLET. PO SCH (08:53)
[2018-11-03] MEDS: POTASSIUM CHLORIDE 10 MEQ TABLET.ER. PO SCH (08:54)
[2018-11-03] MEDS: PANTOPRAZOLE 40 MG TABLET.DR. PO SCH (08:55)
[2018-11-03] MEDS: ASPIRIN 325 MG TABLET PO SCH (08:56)
[2018-11-03] MEDS: IRON POLYSACCHARIDE COMPLEX 150 MG CAPSULE PO SCH (08:56)
[2018-11-03] MEDS: SENNOSIDES/DOCUSATE 8.6/50MG TABLET. PO SCH (08:56)
[2018-11-03] MEDS: amLODIPine BESYLATE 5 MG TABLET PO SCH (08:57)
[2018-11-03] MEDS: hydrALAZINE 25 MG TABLET PO SCH ×2 (08:58→15:23)
[2018-11-03] MEDS: NYSTATIN TOPICAL POWDER 15GM BOTTLE. TP SCH (09:00)
[2018-11-03] MEDS: PSYLLIUM HUSK (SUGAR FREE) 1 PKT PACKET PO SCH (09:00)
[2018-11-03] MEDS ORDERED: AMLO5TAB10 PO (10:07)
[2018-11-03] MEDS ORDERED: POTA10TA12 PO (10:07)
[2018-11-03] MEDS ORDERED: HYDR-2868 PO (10:07)
--- NOTE | 2018-11-03 10:09 | SNU/HH DC ---
DISCHARGE WITH HOME HEALTH DISCHARGE INFORMATION: Discharge Date: Nov 03, 2018 Final Diagnosis: Problems Medical Problems: (1) Anemia in CKD (chronic kidney disease) Status: Chronic (2) CKD (chronic kidney disease) Status: Chronic (3) DM2 (diabetes mellitus, type 2) Status: Chronic (4) Fall Status: Acute (5) HTN (hypertension) Status: Chronic (6) Hypoglycemia Status: Acute (7) OA (osteoarthritis) of knee Status: Chronic Condition on Discharge: Stable CODE STATUS: Code Status: Full HOME HEALTH: Face to Face: I certify this patient is under my care and that I, or a nurse practitioner or physician's escrow assistant working with me, had a face to face encounter that meets the physician face to face encounter requirements with this patient on []. RN For Eval/Treatment: Yes Physical Therapy For: Evalulation/Treatment Occupational Therapy For: Evaluation/Treatment Home Health Aide For: Self-care DRESS CAP MAKER For: Community Resources Pt Meets Homebound Status: Fatigue w/ amb. POST DISCHARGE ORDERS: Activity Instructions for Disc: Activity as tolerated Weight Bearing Status after Di: As tolerated DIET AFTER DISCHARGE: Cardiac Wound/Incision Care: Keep wound elevated CHECKS AFTER DISCHARGE: Checks after discharge: Check blood press - daily, Check blood sugar, ac/hs FOLLOW-UP: PCP to follow Home Health: cbc and bmp (anemia and low K on supplements, on lasix) -do on TREATMENT/EQUIPMENT ORDERS: Adaptive Equipment Issued: Cane, Front wheeled walker CERTIFICATION STATEMENT: Certification Statement: Certification Statement: Based on the above finding, I certify that this patient is confined to the home and needs intermittent fci care, physical therapy and/or speech therapy, or continues to need occupational therapy.~ This patient is under my care, and I have initiated the establishment of the plan of care.~ This patient will be followed by myself or a community physician who will periodically review the plan of care. Home Meds Active Scripts Potassium Chloride (KLOR-CON 10) 10 Meq Tablet.er, 30 MEQ PO DAILYWBKFT for low K for 7 Days, #21 TAB.SR Prov:VENTURA JULES MD 11/03/18 Amlodipine Besylate (AMLODIPINE BESYLATE) 5 Mg Tablet, 5 MG PO DAILY for htn, #90 TAB Prov:VENTURA JULES MD 11/03/18 Hydralazine Hcl (HYDRALAZINE HCL) 25 Mg Tablet, 50 MG PO TID for htn, #90 TAB Prov:VENTURA JULES MD 11/03/18 Multivits,Ca,Minerals/Iron/Fa (THERA-M TABLET) 1 Each Tablet, 1 TAB PO DAILY for mvi MDD 1, #30 TAB Prov:VENTURA JULES MD 05/21/18 Budesonide (BUDESONIDE) 0.5 Mg/2 Ml Ampul.neb, 0.5 MG NEB RTBID for copd MDD 1, #60 EACH Prov:VENTURA JULES MD 05/21/18 Guaifenesin/Dextromethorphan (GUAIFENESIN DM SYRUP) 5 Ml Syrup, 10 ML PO PRN Q6HRS PRN for COUGH, 1st CHOICE MDD 1, #30 MISC Prov:VENTURA JULES MD 05/21/18 Albuterol Sulfate (Proair Hfa) 8.5 Gm Hfa.aer.ad, 2.5 MG NEB PRN Q4HRS PRN for SHORTNESS OF BREATH MDD 1, #60 INHALER Prov:VENTURA JULES MD 05/21/18 Iron Polysaccharides Complex (POLY-IRON) 150 Mg Capsule, 150 MG PO BID for LOUISE MDD 1, #60 CAP Prov:VENTURA JULES MD 05/21/18 Oxycodone Hcl (OXYCODONE HCL IMMED.RELEASE ) 5 Mg Tablet, 10 MG PO PRN Q4HRS PRN for SEVERE PAIN MDD 1, #20 TAB-CAP Prov:VENTURA JULES MD 05/21/18 Reported Medications Insulin Aspart (NOVOLOG FLEXPEN) 100 Unit/1 Ml Insuln.pen, 30 SQ TIDWMEALS, SYR 05/09/16 Aspirin (ASPIRIN) 325 Mg Tablet, 0.5 TAB PO DAILY, #30 TAB 5 Refills 10/25/15 Sennosides/Docusate Sodium (SENNA-S TABLET) 1 Each Tablet, 1 EACH PO BID 10/25/15 Nystatin (NYAMYC) 15 Gm Powder, 15 GM TP DAILY 10/25/15 Lactobacillus Rhamnosus Gg (CULTURELLE) 1 Each Capsule, 1 EACH PO BIDWMEALS 10/25/15 Insulin Glargine,Hum.rec.anlog (LANTUS SOLOSTAR) 100 Unit/1 Ml Insuln.pen, 45 UNIT SQ QHS, #15 ML 3 Refills 10/25/15 Glucosamine Hcl/Chondr [place] A Na ([facility] GLUCOSAMINE-CHONDR TABLET) 1 Each Tablet, 2 EACH PO DAILY 10/25/15 Fluticasone Propionate (Flonase Allergy Relief) 9.9 Ml [place].susp, 2 SPRAYS NS DAILY, BOTTLE 10/25/15 Diphenhydramine Hcl (DIPHENHYDRAMINE HCL) 50 Mg Capsule, 25 MG PO Q6HRS PRN for ALLERGIES 10/25/15 Cholecalciferol (Vitamin D3) (VITAMIN D3) 1,000 Unit Tablet, 2000 UNIT PO DAILY 10/25/15 Atorvastatin Calcium (ATORVASTATIN CALCIUM) 20 Mg Tablet, DAILY, #90 10/25/15 Furosemide (FUROSEMIDE) 20 Mg Tablet, 40 MG BID, #360 10/25/15 Lisinopril (LISINOPRIL) 40 Mg Tablet, 40 DAILY, #90 10/25/15 Carvedilol (CARVEDILOL) 25 Mg Tablet, 25 BID, #14 10/25/15 Pantoprazole Sodium (PANTOPRAZOLE SODIUM ) 40 Mg Tablet.dr, DAILY, #90 10/25/15 Discontinued Reported Medications Hydralazine Hcl (HYDRALAZINE HCL) 25 Mg Tablet, 2 TAB PO TID, #90 TAB 5 Refills 10/25/15 Discontinued Scripts Levofloxacin (LEVAQUIN) 500 Mg Tablet, 500 MG PO DAILY06 for pneumonia MDD 1 for 5 Days, #5 TAB Prov:VENTURA JULES MD 05/21/18 Meloxicam (MELOXICAM) 7.5 Mg Tablet, 7.5 MG PO DAILY, #20 TAB Prov:SBJE 05/15/18 VENTURA JULES MD Nov 03, 2018 10:09
[2018-11-03 11:00] VITALS: BP 177/76
--- NOTE | 2018-11-03 11:30 | NUR ---
SS following up with discharge planning. Nurse navigator reported that pt was previously on services with [facility], ; fax [phone]. Pt agreeable to home healthcare at discharge. SS will continue to follow for discharge planning.
--- NOTE | 2018-11-03 11:34 | PDOC ---
G I PROGRESS NOTE Subjective No GI complaints. Objective Reviewed [facility] records: Last colonoscopy 2016. Mention of "chronic anemia" and hemoglobin of 10+ then. 8mm serrated adenoma removed and hemorrhoids noted. Physical Exam Lungs clear. RRR Abdomen soft, not tender nor distended. Review of Relevant I have reviewed the following items minnie (where applicable) has been applied. Labs Laboratory Tests Test 11/01/18 13:25 11/01/18 17:21 11/01/18 20:53 11/02/18 06:30 Glucose (Fingerstick) 245 mg/dL (70-99) 188 mg/dL (70-99) 210 mg/dL (70-99) White Blood Count 11.5 x10^3/uL (4.0-11.0) Red Blood Count 3.58 x10^6/uL (4.30-5.70) Hemoglobin 10.1 g/dL (13.0-17.5) Hematocrit 30.7 % (39.0-53.0) Mean Corpuscular Volume 86 fL (79-100) Mean Corpuscular Hemoglobin 28 pg (25-35) Mean Corpuscular Hemoglobin Concent 33 g/dL (31-37) Red Cell Distribution Width 15.5 % (11.5-14.5) Platelet Count 248 x10^3/uL (140-400) Neutrophils (%) (Auto) 76 % (31-73) Lymphocytes (%) (Auto) 13 % (24-48) Monocytes (%) (Auto) 9 % (0-9) Eosinophils (%) (Auto) 1 % (0-3) Basophils (%) (Auto) 0 % (0-3) Neutrophils # (Auto) 8.8 x10^3/uL (1.8-7.7) Lymphocytes # (Auto) 1.5 x10^3/uL (1.0-4.8) Monocytes # (Auto) 1.1 x10^3/uL (0.0-1.1) Eosinophils # (Auto) 0.1 x10^3/uL (0.0-0.7) Basophils # (Auto) 0.0 x10^3/uL (0.0-0.2) Sodium Level 139 mmol/L (136-145) Potassium Level 4.7 mmol/L (3.5-5.1) Chloride Level 105 mmol/L (98-107) Carbon Dioxide Level 24 mmol/L (21-32) Anion Gap 10 (6-14) Blood Urea Nitrogen 41 mg/dL (8-26) Creatinine 1.5 mg/dL (0.7-1.3) Estimated GFR (Cockcroft-Gault) 46.1 Glucose Level 152 mg/dL (70-99) Calcium Level 9.2 mg/dL (8.5-10.1) Test 11/02/18 07:30 11/02/18 16:32 11/02/18 20:43 11/03/18 03:40 Glucose (Fingerstick) 154 mg/dL (70-99) 268 mg/dL (70-99) 203 mg/dL (70-99) Hemoglobin 9.7 g/dL (13.0-17.5) Hematocrit 29.4 % (39.0-53.0) Mean Corpuscular Hemoglobin Concent 33 g/dL (31-37) Sodium Level 139 mmol/L (136-145) Potassium Level 4.6 mmol/L (3.5-5.1) Chloride Level 106 mmol/L (98-107) Carbon Dioxide Level 26 mmol/L (21-32) Anion Gap 7 (6-14) Blood Urea Nitrogen 34 mg/dL (8-26) Creatinine 1.4 mg/dL (0.7-1.3) Estimated GFR (Cockcroft-Gault) 50.0 Glucose Level 203 mg/dL (70-99) Calcium Level 9.2 mg/dL (8.5-10.1) Test 11/03/18 08:20 Glucose (Fingerstick) 168 mg/dL (70-99) Laboratory Tests Test 11/02/18 16:32 11/02/18 20:43 11/03/18 03:40 11/03/18 08:20 Glucose (Fingerstick) 268 mg/dL (70-99) 203 mg/dL (70-99) 168 mg/dL (70-99) Hemoglobin 9.7 g/dL (13.0-17.5) Hematocrit 29.4 % (39.0-53.0) Mean Corpuscular Hemoglobin Concent 33 g/dL (31-37) Sodium Level 139 mmol/L (136-145) Potassium Level 4.6 mmol/L (3.5-5.1) Chloride Level 106 mmol/L (98-107) Carbon Dioxide Level 26 mmol/L (21-32) Anion Gap 7 (6-14) Blood Urea Nitrogen 34 mg/dL (8-26) Creatinine 1.4 mg/dL (0.7-1.3) Estimated GFR (Cockcroft-Gault) 50.0 Glucose Level 203 mg/dL (70-99) Calcium Level 9.2 mg/dL (8.5-10.1) Vitals/I & O Vital Sign - Last 24 Hours 11/02/18 11/02/18 11/02/18 11/02/18 11:58 12:36 12:51 13:05 Temp 97.8 97.5 97.5 97.8 97.5 97.5 Pulse 94 74 78 74 Resp 20 18 18 18 B/P (MAP) 154/67 168/61 165/64 Pulse Ox 98 97 100 98 O2 Delivery Room Air Room Air Room Air O2 Flow Rate 2.0 11/02/18 11/02/18 11/02/18 11/02/18 14:52 19:00 19:21 20:00 Temp 98.0 98.8 98.0 98.8 Pulse 85 84 Resp 20 16 B/P (MAP) 147/88 (107) 151/50 (83) Pulse Ox 99 84 100 O2 Delivery Nasal Cannula Nasal Cannula Room Air Room Air O2 Flow Rate 2.0 2.0 11/02/18 11/02/18 11/03/18 11/03/18 21:29 23:00 03:02 07:00 Temp 98.7 98.3 98.3 98.7 98.3 98.3 Pulse 84 83 88 70 Resp 20 20 20 B/P (MAP) 151/50 153/67 (95) 191/80 (117) 154/72 (99) Pulse Ox 97 98 96 O2 Delivery Nasal Cannula Nasal Cannula Room Air O2 Flow Rate 2.0 2.0 11/03/18 11/03/18 11/03/18 11/03/18 07:45 09:03 09:03 11:00 Temp 98.5 98.5 Pulse 94 94 82 Resp 20 B/P (MAP) 154/72 154/72 177/76 (109) Pulse Ox 99 O2 Delivery Room Air Room Air Intake and Output 11/02/18 11/02/18 11/03/18 15:00 23:00 07:00 Intake Total 150 ml 250 ml Output Total 650 ml 1900 ml 1500 ml Balance -500 ml -1650 ml -1500 ml Problem List Problems Medical Problems: (1) Anemia in CKD (chronic kidney disease) Status: Chronic (2) CKD (chronic kidney disease) Status: Chronic (3) DM2 (diabetes mellitus, type 2) Status: Chronic (4) Fall Status: Acute (5) HTN (hypertension) Status: Chronic (6) Hypoglycemia Status: Acute (7) OA (osteoarthritis) of knee Status: Chronic Assessment Chronic anemia; not clearly iron-deficient, but further w/u unlikely to be fruitful. Plan of Care: Continue current Tx, Mgmt Plan of Care Note From GI standpoint, home at your discretion. JG GONZALEZ MD Nov 03, 2018 11:34
--- NOTE | 2018-11-03 11:46 | PDOC ---
Renal-Progress Notes Subjective Notes Notes NOTHING NEW History of Present Illness Hx of present illness STABLE Vitals Vitals Vital Signs Date Time Temp Pulse Resp B/P (MAP) Pulse Ox O2 Delivery O2 Flow Rate FiO2 11/03/18 11:00 98.5 82 20 177/76 (109) 99 Room Air 98.5 11/03/18 03:02 2.0 Weight Weight [ ] I.O. Intake and Output Intake and Output 11/03/18 07:00 Intake Total 400 ml Output Total 4050 ml Balance -3650 ml Intake Oral 250 ml IV Total 150 ml Output Urine Total 4050 ml # Voids 1 Labs Labs Laboratory Tests Test 11/02/18 16:32 11/02/18 20:43 11/03/18 03:40 11/03/18 08:20 Glucose (Fingerstick) 268 mg/dL (70-99) 203 mg/dL (70-99) 168 mg/dL (70-99) Hemoglobin 9.7 g/dL (13.0-17.5) Hematocrit 29.4 % (39.0-53.0) Mean Corpuscular Hemoglobin Concent 33 g/dL (31-37) Sodium Level 139 mmol/L (136-145) Potassium Level 4.6 mmol/L (3.5-5.1) Chloride Level 106 mmol/L (98-107) Carbon Dioxide Level 26 mmol/L (21-32) Anion Gap 7 (6-14) Blood Urea Nitrogen 34 mg/dL (8-26) Creatinine 1.4 mg/dL (0.7-1.3) Estimated GFR (Cockcroft-Gault) 50.0 Glucose Level 203 mg/dL (70-99) Calcium Level 9.2 mg/dL (8.5-10.1) Review of Systems Constitutional: yes: alert, oriented Ears/Nose/Throat: Yes: no symptom reported Eyes: Yes: no symptom reported Pulmonary: Yes no symptom reported Cardiovascular: Yes no symptom reported Gastrointestional: Yes: constipation Genitourinary: Yes: no symptom reported Musculoskeletal: Yes: no symptom reported Skin: Yes no symptom reported Psychiatric/Neurological: Yes: no symptom reported Physical Exam General Appearance: no apparent distress Skin: warm, dry Respiratory: bilateral CTA Heart: S1S2 Abdomen: soft, bowel sounds present Genitourinary: bladder flat Extremities: pulses present Neurology: alert Musculoskeletal: Other (DDD) Assessment Assessment IMP CKD STAGE 3-CR OF 1.5 STABLE AND AT BASELINE DM II HTN HYPOGLYCEMIA SYNCOPE ANEMIA PLAN AVOID NSAIDS HYDRATE TILL PO IS GOOD AGREE WITH INCREASING NORVASC RESUME HOME MED LISINOPRIL WILL FOLLOW DENG ARVIZU MD Nov 03, 2018 11:46
--- NOTE | 2018-11-03 11:50 | NUR ---
SS following up with discharge planning. Discharge orders received for home healthcare. Referral and discharge orders phoned and faxed to [facility], ; fax [phone]. Pt's RN notified.
[2018-11-03] MEDS ORDERED: LISINOPRIL 20 MG TABLET PO SCH (12:00)
--- NOTE | 2018-11-03 13:59 | PDOC3 ---
Discharge Summary Visit Information Date of Admission: Nov 01, 2018 Date of Discharge: Nov 03, 2018 Admitting Diagnosis Comment: 1. Syncope secondary to significant hypoglycemia; BG 23 upon EMS arrival 2. Hypertension; elevated 3. Diabetes, II; 4. Hyperlipidemia 5. DIAMOND on CKD 6. JASEN with CPAP 7. LOUISE; EGD 11/02 8. PAD; s/p left TMA. No claudication symptoms. Final Diagnosis Problems Medical Problems: (1) Anemia in CKD (chronic kidney disease) Status: Chronic (2) CKD (chronic kidney disease) Status: Chronic (3) DM2 (diabetes mellitus, type 2) Status: Chronic (4) Fall Status: Acute (5) HTN (hypertension) Status: Chronic (6) Hypoglycemia Status: Acute (7) OA (osteoarthritis) of knee Status: Chronic Brief Hospital Course Allergies Allergies Coded Allergies Type Severity Reaction Last Updated Verified cefuroxime Allergy Intermediate 11/02/18 Yes piperacillin Adverse Reaction Intermediate RASH 11/02/18 Yes tazobactam Adverse Reaction Intermediate RASH 11/02/18 Yes zolpidem Adverse Reaction Intermediate HALLUCINATIONS 11/02/18 Yes glipizide Adverse Reaction Mild SENSITIVITY TO SUN 11/02/18 Yes Uncoded Allergies Type Severity Reaction Last Updated Verified DUST Allergy Mild SNEEZING 10/25/15 Vital Signs Vital Signs Date Time Temp Pulse Resp B/P (MAP) Pulse Ox O2 Delivery O2 Flow Rate FiO2 11/03/18 13:08 92 144/57 11/03/18 11:00 98.5 20 99 Room Air 98.5 11/03/18 03:02 2.0 Lab Results Laboratory Tests Test 11/01/18 17:21 11/01/18 20:53 11/02/18 06:30 11/02/18 07:30 Glucose (Fingerstick) 188 mg/dL (70-99) 210 mg/dL (70-99) 154 mg/dL (70-99) White Blood Count 11.5 x10^3/uL (4.0-11.0) Red Blood Count 3.58 x10^6/uL (4.30-5.70) Hemoglobin 10.1 g/dL (13.0-17.5) Hematocrit 30.7 % (39.0-53.0) Mean Corpuscular Volume 86 fL (79-100) Mean Corpuscular Hemoglobin 28 pg (25-35) Mean Corpuscular Hemoglobin Concent 33 g/dL (31-37) Red Cell Distribution Width 15.5 % (11.5-14.5) Platelet Count 248 x10^3/uL (140-400) Neutrophils (%) (Auto) 76 % (31-73) Lymphocytes (%) (Auto) 13 % (24-48) Monocytes (%) (Auto) 9 % (0-9) Eosinophils (%) (Auto) 1 % (0-3) Basophils (%) (Auto) 0 % (0-3) Neutrophils # (Auto) 8.8 x10^3/uL (1.8-7.7) Lymphocytes # (Auto) 1.5 x10^3/uL (1.0-4.8) Monocytes # (Auto) 1.1 x10^3/uL (0.0-1.1) Eosinophils # (Auto) 0.1 x10^3/uL (0.0-0.7) Basophils # (Auto) 0.0 x10^3/uL (0.0-0.2) Sodium Level 139 mmol/L (136-145) Potassium Level 4.7 mmol/L (3.5-5.1) Chloride Level 105 mmol/L (98-107) Carbon Dioxide Level 24 mmol/L (21-32) Anion Gap 10 (6-14) Blood Urea Nitrogen 41 mg/dL (8-26) Creatinine 1.5 mg/dL (0.7-1.3) Estimated GFR (Cockcroft-Gault) 46.1 Glucose Level 152 mg/dL (70-99) Calcium Level 9.2 mg/dL (8.5-10.1) Test 11/02/18 16:32 11/02/18 20:43 11/03/18 03:40 11/03/18 08:20 Glucose (Fingerstick) 268 mg/dL (70-99) 203 mg/dL (70-99) 168 mg/dL (70-99) Hemoglobin 9.7 g/dL (13.0-17.5) Hematocrit 29.4 % (39.0-53.0) Mean Corpuscular Hemoglobin Concent 33 g/dL (31-37) Sodium Level 139 mmol/L (136-145) Potassium Level 4.6 mmol/L (3.5-5.1) Chloride Level 106 mmol/L (98-107) Carbon Dioxide Level 26 mmol/L (21-32) Anion Gap 7 (6-14) Blood Urea Nitrogen 34 mg/dL (8-26) Creatinine 1.4 mg/dL (0.7-1.3) Estimated GFR (Cockcroft-Gault) 50.0 Glucose Level 203 mg/dL (70-99) Calcium Level 9.2 mg/dL (8.5-10.1) Test 11/03/18 11:48 Glucose (Fingerstick) 242 mg/dL (70-99) Laboratory Tests Test 11/02/18 16:32 11/02/18 20:43 11/03/18 03:40 11/03/18 08:20 Glucose (Fingerstick) 268 mg/dL (70-99) 203 mg/dL (70-99) 168 mg/dL (70-99) Hemoglobin 9.7 g/dL (13.0-17.5) Hematocrit 29.4 % (39.0-53.0) Mean Corpuscular Hemoglobin Concent 33 g/dL (31-37) Sodium Level 139 mmol/L (136-145) Potassium Level 4.6 mmol/L (3.5-5.1) Chloride Level 106 mmol/L (98-107) Carbon Dioxide Level 26 mmol/L (21-32) Anion Gap 7 (6-14) Blood Urea Nitrogen 34 mg/dL (8-26) Creatinine 1.4 mg/dL (0.7-1.3) Estimated GFR (Cockcroft-Gault) 50.0 Glucose Level 203 mg/dL (70-99) Calcium Level 9.2 mg/dL (8.5-10.1) Test 11/03/18 11:48 Glucose (Fingerstick) 242 mg/dL (70-99) Brief Hospital Course Mr. Herrera is a 73 old male who lives with , syncope from BS 25, neuro also consulted by colleague, unsure if eeg done or actually needed as we have clear cause of syncope, BAck home today with HH and heavy education done re BS and what to do Pt seen and examined consults: neuro Discharge Information Condition at Discharge: Improved, Stable Disposition/Orders: D/C to Home w/ HH Scheduled Amlodipine Besylate (Amlodipine Besylate) 5 Mg Tablet, 5 MG PO DAILY for htn, #90 Prescribed by: VENTURA JULES on 11/03/18 1007 Aspirin (Aspirin) 325 Mg Tablet, 0.5 TAB PO DAILY, #30 Ref 5 (Reported) Entered as Reported by: ALEJANDRA HERRON on 10/25/151602 Last Action: Continued on 11/01/18853 by JAYSON ROCHA MD Atorvastatin Calcium (Atorvastatin Calcium) 20 Mg Tablet, DAILY, #90 (Reported) Entered as Reported by: KELI MARTINEZ on 10/25/15219 Last Action: Continued on 11/01/18853 by JYASON ROCHA MD Budesonide (Budesonide) 0.5 Mg/2 Ml Ampul.neb, 0.5 MG NEB RTBID for copd MDD 1, #60 Prescribed by: VENTURA JULES on 05/21/18 1004 Last Action: Continued on 11/01/18853 by JAYSON ROCHA MD Carvedilol (Carvedilol) 25 Mg Tablet, 25 BID, #14 (Reported) Entered as Reported by: KELI MARTINEZ on 10/25/15219 Last Action: Reviewed on 11/01/18511 by MARIAELENA JIMENEZ RN Cholecalciferol (Vitamin D3) (Vitamin D3) 1,000 Unit Tablet, 2,000 UNIT PO DAILY, (Reported) Entered as Reported by: ALEJANDRA HERRON on 10/25/151602 Last Action: Continued on 11/01/18853 by JAYSON ROCHA MD Fluticasone Propionate (Flonase Allergy Relief) 9.9 Ml Goodwin.susp, 2 SPRAYS NS DAILY, (Reported) Entered as Reported by: ALEJANDRA HERRON on 10/25/151602 Last Action: Reviewed on 11/01/18511 by MARIAELENA JIMENEZ RN Furosemide (Furosemide) 20 Mg Tablet, 40 MG BID, #360 (Reported) Entered as Reported by: KELI MARTINEZ on 10/25/15219 Last Action: Reviewed on 11/01/18511 by MARIAELENA JIMENEZ RN Glucosamine Hcl/Chondr [place] A Na (Cvs Glucosamine-Chondr Tablet) 1 Each Tablet, 2 EACH PO DAILY, (Reported) Entered as Reported by: ALEJANDRA HERRON on 10/25/151602 Last Action: Reviewed on 11/01/18511 by MARIAELENA JIMENEZ RN Hydralazine Hcl (Hydralazine Hcl) 25 Mg Tablet, 50 MG PO TID for htn, #90 Prescribed by: VENTURA JULES on 11/03/18 1007 Insulin Aspart (Novolog Flexpen) 100 Unit/1 Ml Insuln.pen, 30 SQ TIDWMEALS, (Reported) Entered as Reported by: Darcy Gallardo RN on 05/09/166 Last Action: Reviewed on 11/01/18511 by MARIAELENA JIMENEZ RN Insulin Glargine,Hum.rec.anlog (Lantus Solostar) 100 Unit/1 Ml Insuln.pen, 45 UNIT SQ QHS, #15 Ref 3 (Reported) Entered as Reported by: ALEJANDRA HERRON on 10/25/151602 Last Action: Reviewed on 11/01/18511 by MARIAELENA JIMENEZ RN Iron Polysaccharides Complex (Poly-Iron) 150 Mg Capsule, 150 MG PO BID for LOUISE MDD 1, #60 Prescribed by: VENTURA JULES on 05/21/181003 Last Action: Continued on 11/01/18853 by JAYSON ROCHA MD Lactobacillus Rhamnosus Gg (Culturelle) 1 Each Capsule, 1 EACH PO BIDWMEALS, (Reported) Entered as Reported by: ALEJANDRA HERRON on 10/25/151602 Last Action: Reviewed on 11/01/18511 by MARIAELENA JMIENEZ RN Lisinopril (Lisinopril) 40 Mg Tablet, 40 DAILY, #90 (Reported) Entered as Reported by: KELI MARTINEZ on 10/25/15 0220 Last Action: Reviewed on 11/01/18511 by MARIAELENA JIMENEZ RN Multivits,Ca,Minerals/Iron/Fa (Thera-M Tablet) 1 Each Tablet, 1 TAB PO DAILY for mvi MDD 1, #30 Prescribed by: VENTURA JULES on 05/21/181003 Last Action: Continued on 11/01/18853 by JAYSON ROCHA MD Nystatin (Nyamyc) 15 Gm Powder, 15 GM TP DAILY, (Reported) Entered as Reported by: ALEJANDRA HERRON on 10/25/151602 Last Action: Continued on 11/01/18853 by JAYSON ROCHA MD Pantoprazole Sodium (Pantoprazole Sodium ) 40 Mg Tablet., DAILY, #90 (Reported) Entered as Reported by: KELI MARTINEZ on 10/25/15 0220 Last Action: Continued on 11/01/18853 by JAYSON ROCHA MD Potassium Chloride (Klor-Con 10) 10 Meq Tablet.er, 30 MEQ PO DAILYWBKFT for low K for 7 Days, #21 Prescribed by: VENTURA JULES on 11/03/18 1007 Sennosides/Docusate Sodium (Senna-S Tablet) 1 Each Tablet, 1 EACH PO BID, (Reported) Entered as Reported by: ALEJANDRA HERRON on 10/25/15 160 Last Action: Continued on 11/01/18853 by JAYSON ROCHA MD Scheduled PRN Albuterol Sulfate (Proair Hfa) 8.5 Gm Hfa.aer.ad, 2.5 MG NEB PRN Q4HRS PRN for SHORTNESS OF BREATH MDD 1, #60 Prescribed by: VENTURA JULES on 05/21/181003 Last Action: Continued on 11/01/18853 by JAYSON ROCHA MD Diphenhydramine Hcl (Diphenhydramine Hcl) 50 Mg Capsule, 25 MG PO Q6HRS PRN for ALLERGIES, (Reported) Entered as Reported by: ALEJANDRA HERRON on 10/25/151602 Last Action: Reviewed on 11/01/18511 by MARIAELENA JIMENEZ RN Guaifenesin/Dextromethorphan (Guaifenesin Dm Syrup) 5 Ml Syrup, 10 ML PO PRN Q6HRS PRN for COUGH, 1st CHOICE MDD 1, #30 Prescribed by: VENTURA JULES on 05/21/18 100 Last Action: Continued on 11/01/18853 by JAYSON ROCHA MD Oxycodone Hcl (Oxycodone Hcl Immed.release ) 5 Mg Tablet, 10 MG PO PRN Q4HRS PRN for SEVERE PAIN MDD 1, #20 Prescribed by: VENTURA JULES on 05/21/18 100 Discontinued Medications Hydralazine Hcl (Hydralazine Hcl) 25 Mg Tablet, 2 TAB PO TID, #90 Ref 5 (Reported) Entered as Reported by: ALEJANDRA HERRON on 10/25/15 1603 Last Action: Continued on 11/01/18 0854 by JAYSON ROCHA MD Levofloxacin (Levaquin) 500 Mg Tablet, 500 MG PO DAILY06 for pneumonia MDD 1 for 5 Days, #5 Prescribed by: VENTURA JULES on 05/21/18 1004 Meloxicam (Meloxicam) 7.5 Mg Tablet, 7.5 MG PO DAILY, #20 Prescribed by: JE BASURTO DO on 05/15/18 1201 VENTURA JULES MD Nov 03, 2018 13:59
[2018-11-03 15:00] VITALS: BP 163/57
[2018-11-03 15:23] VITALS: BP 125/59
--- NOTE | 2018-11-03 16:51 | PDOC ---
PROGRESS NOTES Assessment Assessment Syncopal episode. Hypoglycemia, glucose 23. Hyperglycemia, glucose 268. Metabolic encephalopathy. Fall. DM. HTN. Renal failure. CAD. Carotid A stenosis 50-69%. Morbid obesity. RECOMMENDATIONS/PLAN: Treat medical diseases. See Vascular Surgery for carotid A stenosis. Control hyperglycemia and hypoglycemia. OT/PT. Weight reduction. HISTORY OF THE PRESENT ILLNESS: This is a 73-year-old male patient who presented secondary to syncopal episode. Per his statement, he took his usual insulin Friday night, but did not eat. He stood up out of the chair but passed out, falling on to the coffee table.His called EMS. Blood glucose 23 upon EMS arrival, so he was brought to [facility] after initial treatment in scene. No syncopal or seizure like spells on 11/03/18. PAST MEDICAL HISTORY Cardiovascular: HTN, Hyperlipidemia, Other (PAD) Pulmonary: Other (JASEN with CPAP) Heme/Onc: Anemia NOS Psych: Depression Musculoskeletal: Osteoarthritis, Other (DDD) Renal/: Chronic renal insuff, Benign prostatic enlarg. Endocrine: Diabetes PAST SURGICAL HISTORY Past Surgical History: Other (right rotator cuff surgery, left TMA ) FAMILY HISTORY Family History: Diabetes, Hypertension SOCIAL HISTORY Smoke: Quit ( ) ALCOHOL: none Drugs: None Lives: with Family ALLERGIES Coded Allergies: cefuroxime (Verified Allergy, Intermediate, 05/11/16) piperacillin (Verified Adverse Reaction, Intermediate, RASH, 10/25/15) TOLERATED ERTAPENEM tazobactam (Verified Adverse Reaction, Intermediate, RASH, 10/25/15) TOLERATED ERTAPENEM zolpidem (Verified Adverse Reaction, Intermediate, HALLUCINATIONS, 10/25/15) glipizide (Verified Adverse Reaction, Mild, SENSITIVITY TO SUN, 10/25/15) Uncoded Allergies: DUST (Allergy, Mild, SNEEZING, 10/25/15) ROS 14 point ROS conducted with pertinent positives noted above in HPI. MEDICATIONS: Refer to MAR PHYSICAL EXAMINATION: General appearance is in subacute distress. HEENT: Normocephalic and nontraumatic. Eyes, nose, ears, and throat are unremarkable. Neck is supple. No lymphadenopathy. No crepitus. Cardiovascular: S1, S2, regular rate and rhythm. Pulmonary: Clear to auscultation bilaterally. Abdomen: Bowel sounds are positive. Abdomen is soft, nontender, and nondistended. Extremities: Chronic venous stasis noted in LE. No restriction of range of motion NEUROLOGICAL EXAMINATION: Sleepiness but arousable. Oriented to time, place and person. PERRL. EOMI. CN: no focal findings. Muscle tone: within normal. Muscle strength: 4+ UE, 3 LE. DTR: 0-1 Plantar reflex: Neutral response bilaterally Gait: not examined in chair. Sensory exam: no abnormal findings. No cerebellar signs elicited. F-T-N test fine. Objective Objective Vital Signs Date Time Temp Pulse Resp B/P (MAP) Pulse Ox O2 Delivery O2 Flow Rate FiO2 11/03/18 15:24 88 125/59 11/03/18 15:00 98.6 20 99 Room Air 98.6 11/03/18 03:02 2.0 Intake and Output 11/03/18 07:00 Intake Total 400 ml Output Total 4050 ml Balance -3650 ml Intake Oral 250 ml IV Total 150 ml Output Urine Total 4050 ml # Voids 1 Vitals Signs Vitals VS - Last 72 Hours, by Label Date Time Temp Pulse Resp B/P (MAP) Pulse Ox O2 Delivery O2 Flow Rate FiO2 11/03/18 15:24 88 125/59 11/03/18 15:00 98.6 84 20 163/57 (92) 99 Room Air 98.6 11/03/18 13:08 92 144/57 11/03/18 11:00 98.5 82 20 177/76 (109) 99 Room Air 98.5 11/03/18 09:03 94 154/72 11/03/18 09:03 94 154/72 11/03/18 08:00 Room Air 11/03/18 07:45 Room Air 11/03/18 07:00 98.3 70 20 154/72 (99) 96 Room Air 98.3 11/03/18 03:02 98.3 88 20 191/80 (117) 98 Nasal Cannula 2.0 98.3 11/02/18 23:00 98.7 83 20 153/67 (95) 97 Nasal Cannula 2.0 98.7 11/02/18 21:29 84 151/50 11/02/18 20:00 Room Air 11/02/18 19:21 100 Room Air 11/02/18 19:00 98.8 84 16 151/50 (83) 84 Nasal Cannula 2.0 98.8 11/02/18 14:52 98.0 85 20 147/88 (107) 99 Nasal Cannula 2.0 98.0 11/02/18 13:05 74 18 165/64 98 Room Air 11/02/18 12:51 97.5 78 18 168/61 100 Room Air 97.5 11/02/18 12:36 97.5 74 18 154/67 97 Room Air 2.0 97.5 11/02/18 11:58 97.8 94 20 98 97.8 11/02/18 10:52 98.1 79 20 167/62 (97) 99 Nasal Cannula 2.0 98.1 11/02/18 08:55 98 Room Air 11/02/18 08:50 75 169/75 11/02/18 08:50 75 169/75 11/02/18 08:00 Room Air 11/02/18 07:00 98.1 75 20 169/75 (106) 99 Nasal Cannula 2.0 98.1 Laboratory Laboratory Laboratory Tests Test 11/02/18 20:43 11/03/18 03:40 11/03/18 08:20 11/03/18 11:48 Glucose (Fingerstick) 203 mg/dL (70-99) 168 mg/dL (70-99) 242 mg/dL (70-99) Hemoglobin 9.7 g/dL (13.0-17.5) Hematocrit 29.4 % (39.0-53.0) Mean Corpuscular Hemoglobin Concent 33 g/dL (31-37) Sodium Level 139 mmol/L (136-145) Potassium Level 4.6 mmol/L (3.5-5.1) Chloride Level 106 mmol/L (98-107) Carbon Dioxide Level 26 mmol/L (21-32) Anion Gap 7 (6-14) Blood Urea Nitrogen 34 mg/dL (8-26) Creatinine 1.4 mg/dL (0.7-1.3) Estimated GFR (Cockcroft-Gault) 50.0 Glucose Level 203 mg/dL (70-99) Calcium Level 9.2 mg/dL (8.5-10.1) Medication Medications Current Medications Lisinopril (Prinivil) 40 mg DAILY PO Last administered on 11/03/18at 13:08; Start 11/03/18 at 12:00 Comment Review of Relevant I have reviewed the following items minnie (where applicable) has been applied. POLLO CLEMONS MD Nov 03, 2018 16:51
--- NOTE | 2018-11-03 17:30 | NUR ---
Discharge wound picture taken by DIEGO Trevino before patient discharged, see chart for picture.
--- NOTE | 2018-11-03 18:53 | NUR ---
Discharge Note: LACI RASCON [facility] Discharge instructions and discharge home medications reviewed with Patient and a copy given. All questions have been answered and understanding verbalized. The following instructions and handouts were given: discharge instructions, new med info, hypoglycemia info Discontinued lines and drains: Peripheral IV intact. Patient discharged to Home w/services with family Member via Wheelchair at 1853.
== END 2018-11-03 18:53 | disposition home health service (06) | DRG 637 ==
LOC: ER 22:34 → 2 SOUTH 11-01 00:09
PROVIDERS: ADMIT Family Medicine; ATTEND Family Medicine
PROC: 0DJ08ZZ Inspection of Upper Intestinal Tract, Via Natural or Artificial Opening Endoscopic (ICD-10-PCS; principal; 2018-11-02 14:30)
DX: E11.649 Type 2 diabetes mellitus with hypoglycemia without coma (principal); G93.41 Metabolic encephalopathy; I13.0 Hypertensive heart and chronic kidney disease with heart failure and stage 1 through stage 4 chronic kidney disease, or unspecified chronic kidney disease; Z68.43 Body mass index [BMI] 50.0-59.9, adult; K29.70 Gastritis, unspecified, without bleeding; N17.9 Acute kidney failure, unspecified; I95.1 Orthostatic hypotension; D63.1 Anemia in chronic kidney disease; E11.22 Type 2 diabetes mellitus with diabetic chronic kidney disease; E11.51 Type 2 diabetes mellitus with diabetic peripheral angiopathy without gangrene; E11.65 Type 2 diabetes mellitus with hyperglycemia; E66.01 Morbid (severe) obesity due to excess calories; E78.5 Hyperlipidemia, unspecified; G47.33 Obstructive sleep apnea (adult) (pediatric); I07.1 Rheumatic tricuspid insufficiency; I25.10 Atherosclerotic heart disease of native coronary artery without angina pectoris; I50.9 Heart failure, unspecified; K59.00 Constipation, unspecified; K64.9 Unspecified hemorrhoids; M17.0 Bilateral primary osteoarthritis of knee; N18.3 Chronic kidney disease, stage 3 (moderate); R29.6 Repeated falls; Z79.4 Long term (current) use of insulin; Z79.51 Long term (current) use of inhaled steroids; Z79.82 Long term (current) use of aspirin; Z79.899 Other long term (current) drug therapy; Z82.49 Family history of ischemic heart disease and other diseases of the circulatory system; Z91.14 Patient's other noncompliance with medication regimen; Z91.19 Patient's noncompliance with other medical treatment and regimen; Z91.81 History of falling; Z83.3 Family history of diabetes mellitus; F32.9 Major depressive disorder, single episode, unspecified; M19.90 Unspecified osteoarthritis, unspecified site; Z88.8 Allergy status to other drugs, medicaments and biological substances; I65.21 Occlusion and stenosis of right carotid artery
CPT/HCPCS: 36415; 43235; 70450; 71045; 80048; 80053; 81001; 82962; 83036; 84484; 85014; 85018; 85025; 93005; 93306; 93880; 94640; 96374; J2001; J2704; J7042; J7120; J7626; 97530; 99285-25; G0378

== ENCOUNTER 2018-12-08 18:42 | Emergency (ER) | payer MEDICARE ==
[~2018-12-08] VITALS: Ht 175.3 cm; Wt 163.3 kg
[~2018-12-08 18:42] MED LIST changes: +AMLO5TAB10 PO; +POTA10TA12 PO
[2018-12-08 19:14] VITALS: BP 138/63
[2018-12-08] MEDS ORDERED: LIDOCAINE WITH 8.4% SOD BICARB 3 ML DISP.SYRIN. INJ ONE (19:45)
[2018-12-08] MEDS ORDERED: TRANEXAMIC ACID 1,000 MG/10 ML VIAL. TOP ONE (19:45)
[2018-12-08] MEDS ORDERED: SULF1TAB24 PO (23:13)
--- NOTE | 2018-12-08 23:14 | PHYS DOC ---
Past Medical History Past Medical History: Diabetes-Type II, Hypertension, Renal Failure, Other Additional Past Medical Histor: morbid obesity, AMPUTATION HALF FOOT. Past Surgical History: Other Additional Past Surgical Histo: LEFT partial foot amputation, SHOULDER SURGERY Alcohol Use: None Drug Use: None Adult General Chief Complaint Chief Complaint: LACERATION/AVULSION HPI HPI Patient is a 73 year old male with history of diabetes type 2, hypertension, kidney disease, who presents to the ED today with laceration on the right fourth toe, patient states he stepped on type with no shoes today. Review of Systems Review of Systems Constitutional: Denies fever or chills [] Musculoskeletal: Denies back pain or joint pain [] Integument: Laceration to the right fourth toe Neurologic: Denies headache, focal weakness or sensory changes [] All other systems were reviewed and found to be within normal limits, except as documented in this note. Current Medications Current Medications Current Medications Medications (Trade) Dose Ordered Sig/Beatrice Start Time Stop Time Status Last Admin Dose Admin Lidocaine/Sodium Bicarbonate (Buffered Lidocaine 1%) 6 ml 1X ONCE 12/08/18 19:45 12/08/18 19:49 DC 12/08/18 19:45 6 ML Tranexamic Acid (Cyklokapron) 1,000 mg 1X ONCE 12/08/18 19:45 12/08/18 19:49 DC 12/08/18 19:45 1,000 MG Allergies Allergies Allergies Coded Allergies Type Severity Reaction Last Updated Verified cefuroxime Allergy Intermediate 11/02/18 Yes piperacillin Adverse Reaction Intermediate RASH 11/02/18 Yes tazobactam Adverse Reaction Intermediate RASH 11/02/18 Yes zolpidem Adverse Reaction Intermediate HALLUCINATIONS 11/02/18 Yes glipizide Adverse Reaction Mild SENSITIVITY TO SUN 11/02/18 Yes Uncoded Allergies Type Severity Reaction Last Updated Verified DUST Allergy Mild SNEEZING 10/25/15 Physical Exam Physical Exam Constitutional: Morbidly obese patient. Well developed, well nourished, no acute distress, non-toxic appearance. [] Skin: Underneath the right fourth toe there is a laceration approximately 2 cm long with a slight bleeding. Patient has diabetes and has no sensation to the feet. +2 right pedal pulse. Back: No tenderness, no CVA tenderness. [] Extremities: No tenderness, no cyanosis, no clubbing, ROM intact, no edema. [] Neurologic: Alert and oriented X 3, normal motor function, normal sensory function, no focal deficits noted. [] Psychologic: Affect normal, judgement normal, mood normal. [] Current Patient Data Vital Signs Vital Signs Date Time Temp Pulse Resp B/P (MAP) Pulse Ox O2 Delivery O2 Flow Rate FiO2 12/08/18 19:14 97.5 56 14 138/63 (88) 92 Room Air 97.5 EKG EKG [] Radiology/Procedures Radiology/Procedures Laceration/Wound Repair Wound Location: Right fourth toe Wound's Depth, Shape: Horizontal Wound Length (cm): Approximately 2 cm Wound Explored: clean Irrigated w/ Saline (ccs): 500 Betadine Prep?: Yes Anesthesia: 1% buffered lidocaine Volume Anesthetic (ccs): Approximately 4 mL, TXA was used to stop bleeding Wound Repaired With: Vicryl 3.0 Suture Type: Interrupted sutures Number of Sutures: 3 Progress : Wound was left open to air, bleeding stopped Course & Med Decision Making Course & Med Decision Making Pertinent Labs and Imaging studies reviewed. (See chart for details) Patient has laceration to the right foot that was repaired by me as noted in procedures. Wound care instructions and return precautions provided. Follow-up with PCP in 1-2 weeks. Tetanus updated. Dragon Disclaimer Dragon Disclaimer This electronic medical record was generated, in whole or in part, using a voice recognition dictation system. Departure Departure Impression: Primary Impression: Toe laceration Disposition: 01 HOME, SELF-CARE Condition: STABLE Referrals: Rajendra ACOSTA MD (PCP) follow up in one week Patient Instructions: Laceration Care, Adult, [id number] Additional Instructions: You have a laceration on the right fourth toe that was repaired with absorbable stitches, they will fall off on their own. Keep the area clean and dry. Follow- up with your own doctor in 1-2 weeks. Monitor the area for any signs of infection including but not limited to increased redness, warmth, yellow drainage from the area and return to the ED or see her doctor if they occur. Complete your prescribed antibiotics prescription was sent to your pharmacy Scripts Sulfamethoxazole/Trimethoprim (BACTRIM DS TABLET) 1 Each Tablet 1 TAB PO BID, #14 TAB Prov: PAMELLADANIEL APRN 12/08/18 Problem Qualifiers Primary Impression: Toe laceration Encounter type: initial encounter Toe: lesser toe Damage to nail status: without damage Foreign body presence: without foreign body Laterality: right Qualified Codes: S91.114A - Laceration without foreign body of right lesser toe(s) without damage to nail, initial encounter DANIEL CAN APRN Dec 08, 2018 23:13
== END 2018-12-08 23:25 | disposition home or self-care (01) ==
LOC: ER 18:42
DX: S91.114A Laceration without foreign body of right lesser toe(s) without damage to nail, initial encounter (principal); E11.22 Type 2 diabetes mellitus with diabetic chronic kidney disease; N18.9 Chronic kidney disease, unspecified; Z88.1 Allergy status to other antibiotic agents; Z88.8 Allergy status to other drugs, medicaments and biological substances; Y28.8XXA Contact with other sharp object, undetermined intent, initial encounter; Y93.89 Activity, other specified; Y92.89 Other specified places as the place of occurrence of the external cause; Y99.8 Other external cause status
CPT/HCPCS: 12001; 99284-25

== ENCOUNTER 2019-10-22 11:32 | Inpatient (IN) | payer MEDICARE ==
[~2019-10-22] VITALS: Ht 172.7 cm; Wt 139.8 kg
[~2019-10-22 11:32] MED LIST changes: +SULF1TAB24 PO
--- NOTE | 2019-10-22 12:04 | PHYS DOC ---
Past Medical History Past Medical History: Diabetes-Type II, Hypertension, Renal Failure, Other Additional Past Medical Histor: morbid obesity, AMPUTATION HALF FOOT. Past Surgical History: Other Additional Past Surgical Histo: LEFT partial foot amputation, SHOULDER SURGERY Smoking Status: Never Smoker Alcohol Use: None Drug Use: None General Adult EDM: Chief Complaint: UPPER EXTREMITY PAIN HPI: HPI: Patient is a 74 year old male who presents with here by EMS for left arm swelling for the last week. He does have several small sores that look like he has been picking at his arm. When asked about this he states that he has a cat that climbs up on him and will take her claws into him at times. States they have been there for a while but he keeps picking at them. Patient states he has had this left arm swelling that causes his arm to feel very tight and he cannot make a fist. He denies any pain. The left arm is 3+ swollen compared to the right arm. Radial pulse is present. Cap refill less than 3 seconds. Patient a lso has a intermittent cough he would like a COVID test. Patient states that he is also having some constipation and yesterday he had a very small bowel movement. He states that he does have generalized cramping abdominal pain that comes and goes. Denies any blood in his stool or urine. Patient states he also has a left foot wound that has been there for quite some time as he keeps hitting the tip of the stump. Patient does have all of his left toes amputated. Patient does have a quarter sized open wound draining but there is no associated cellulitis. The pedal pulses strong present. He has bilateral lower extremity 2+ edema. He states that he had his amputation on that foot many years ago but he still has a hard time ambulating. He states he is been trying to get into [place] for quite some time and states is taking quite some time to get in. Patient does live by himself and his son comes over to check on him. States his son came over this morning to check on him. He states that he has a chair with a stool in it that he uses for the restroom and he feels it up and then he standing and urine and is afraid his foot is going get infected. Patient denies chest pain, shortness of air, headache, dizziness, falls, fever, vision changes, syncope. Patient does have history of peripheral neuropathy, diabetes, hypertension, gastritis, DJD, chronic kidney disease. When asked if the patient is taking all of his medications as prescribed he states " I think so" but I have so many and I think I keep forgetting to take one of them. Denies any pain at this time. Review of Systems: Review of Systems: Constitutional: Denies fever or chills. [] Eyes: Denies change in visual acuity. [] HENT: Denies nasal congestion or sore throat. [] Respiratory: cough or denies shortness of breath. [] Cardiovascular: Denies chest pain or edema. [] GI: Intermittent generalized cramping abdominal pain and constipation, denies nausea, vomiting, bloody stools or diarrhea. [] : Denies dysuria. [] Musculoskeletal: Denies back pain or joint pain. Left arm swelling. [] Integument: Denies rash. Quarter sized left foot wound. [] Neurologic: Denies headache, focal weakness or sensory changes. [] Endocrine: Denies polyuria or polydipsia. [] Lymphatic: Denies swollen glands. [] Psychiatric: Denies depression or anxiety. [] Heart Score: Risk Factors: Risk Factors: DM, Current or recent (<one month) smoker, HTN, HLP, family history of CAD, obesity. Risk Scores: Score 0 - 3: 2.5% MACE over next 6 weeks - Discharge Home Score 4 - 6: 20.3% MACE over next 6 weeks - Admit for Clinical Observation Score 7 - 10: 72.7% MACE over next 6 weeks - Early Invasive Strategies Allergies: Allergies: Allergies Coded Allergies Type Severity Reaction Last Updated Verified cefuroxime Allergy Intermediate 11/02/18 Yes piperacillin Adverse Reaction Intermediate RASH 11/02/18 Yes tazobactam Adverse Reaction Intermediate RASH 11/02/18 Yes zolpidem Adverse Reaction Intermediate HALLUCINATIONS 11/02/18 Yes glipizide Adverse Reaction Mild SENSITIVITY TO SUN 11/02/18 Yes Uncoded Allergies Type Severity Reaction Last Updated Verified DUST Allergy Mild SNEEZING 10/25/15 Physical Exam: PE: Constitutional: Well developed, well nourished, no acute distress, non-toxic appearance. [] HENT: Normocephalic, atraumatic, bilateral external ears normal, oropharynx moist, no oral exudates, nose normal. [] Eyes: PERRLA, EOMI, conjunctiva normal, no discharge. [] Neck: Normal range of motion, no tenderness, supple, no stridor. [] Cardiovascular:Heart rate regular rhythm, no murmur [] Lungs & Thorax: Bilateral upper breath sounds clear and lower diminished to auscultation [] Abdomen: Bowel sounds normal, soft, no tenderness, no masses, no pulsatile masses. [] Skin: Warm, dry, no erythema, no rash. Small generalized picking type wounds to bilateral arms. Left stump wound quarter sized with drainage. [] Back: No tenderness, no CVA tenderness. [] Extremities: No tenderness, no cyanosis, no clubbing, ROM intact, bilateral lower extremities 2+, left upper extremity 3+ edema. [] Neurologic: Alert and oriented X 3, normal motor function, normal sensory function, no focal deficits noted. [] Psychologic: Affect normal, judgement normal, mood normal. [] EKG: EK AND READ BY DR MILLER SINUS RHYTHM AND NO STEMI[] Radiology/Procedures: Radiology/Procedures: [] Impression: [address] [id number] IMAGING REPORT Signed PATIENT: LACI RASCON ACCOUNT: [id number] : 1945 LOCATION: ER AGE: 74 SEX: M EXAM STATUS: PRE ER ORD. PHYSICIAN: PAPITO SANCHEZ APRN REASON: cough PROCEDURE: PORTABLE CHEST 1V AP chest. HISTORY: Cough AP view was taken of the chest. The patient's taken a poor inspiration. Heart is within normal limits in size. There is no effusion. There are no acute infiltrates. IMPRESSION: 1. Poor inspiration. 2. No acute infiltrates. Electronically signed by: Baldemar Garcia MD (10/22/2019 12:17 PM) [id number] DICTATED and SIGNED BY: BALDEMAR GARCIA MD DATE: 10/22/[address] [id number] IMAGING REPORT Signed PATIENT: LACI RASCON ACCOUNT: [id number] : 1945 LOCATION: ER AGE: 74 SEX: M EXAM STATUS: PRE ER ORD. PHYSICIAN: PAPITO SANCHEZ APRN REASON: LEFT FOOT PAIN, NON HEALING WOUND PROCEDURE: FOOT LEFT 3V Left foot 3 views. HISTORY: Foot pain, nonhealing wound 3 views were taken of the left foot. There is been a amputation just distal to the tarsal metatarsal joints. There is soft tissue swelling. There is mottling of the bone from osteoporosis. There are small erosions on the cuboid on the lateral view and the anterior talus on the lateral view. I do not have an old study for comparison. IMPRESSION: 1. Previous amputation. 2. Small erosions. 3. MRI could be of benefit to evaluate for osteomyelitis. Electronically signed by: Baldemar Garcia MD (10/22/2019 12:20 PM) [id number] DICTATED and SIGNED BY: BALDEMAR GARCIA MD DATE: 10/22/19 1220 [place] [id number] IMAGING REPORT Signed PATIENT: LACI RASCON ACCOUNT: [id number] : 1945 LOCATION: ER AGE: 74 SEX: M EXAM STATUS: PRE ER ORD. PHYSICIAN: PAPITO SANCHEZ APRN REASON: swelling PROCEDURE: VENOUS UPPER EXTREMITY LEFT Left upper extremity venous Doppler ultrasound History: Left arm swelling Comparison: None. Findings: Multiple grayscale, color, duplex spectral analysis waveform images of the left upper extremity veins are submitted. Interrogated left upper extremity veins are patent with normal color flow, compressibility, and phasicity, no thrombus demonstrated. Impression: 1. Left upper extremity veins are patent, no thrombus demonstrated. Electronically signed by: Melina Patel MD (10/22/2019 12:47 PM) [id number] DICTATED and SIGNED BY: MELINA PATEL MD DATE: 10/22/[address] [id number] IMAGING REPORT Signed PATIENT: LACI RASCON ACCOUNT: [id number] : 1945 LOCATION: ER AGE: 74 SEX: M EXAM STATUS: REG ER ORD. PHYSICIAN: PAPITO SANCHEZ APRN REASON: constipation, abd pain PUI PROCEDURE: CT ABD PELV W/ IV CONTRST ONLY CT ABD PELV W/ IV CONTRST ONLY Indication: Constipation, abdominal pain, PUI Technique: Postcontrast CT imaging was performed of the abdomen pelvis, multiplanar reconstruction images submitted. No oral contrast was given. One or more of the following individualized dose reduction techniques were utilized for this examination: 1. Automated exposure control 2. Adjustment of the mA and/or kV according to patient size 3. Use of iterative reconstruction technique. Comparison: None Findings: There is motion degradation. There is no significant abnormality of the limited visualized lung bases. There is coronary calcification. There is cholelithiasis. There is mild fullness of the left adrenal gland without discrete nodularity, no right adrenal nodule. No significant focal abnormality is identified of the liver or partially fat replaced pancreas. There is small splenic granuloma. Both kidneys enhance without hydronephrosis. There is nonspecific stranding change of the perinephric fat bilaterally greater on the left. No renal calculus is identified. There is somewhat lobulated contour of the bilateral kidneys, also exophytic focus of density of the inferior right kidney about 1 cm with density measurements similar to adjacent renal parenchyma. There is also small exophytic focus of density of the inferior left kidney about 0.7 cm, similar density measurements compared with adjacent parenchyma. Evaluation of bowel is somewhat limited without oral contrast. Bowel is not dilated. There is no free fluid or free air. There is mild retained stool in the colon. Appendix is not clearly identified if still present, no significant pericecal inflammatory type change. There is mild scattered plaque of the abdominal aorta, also of the proximal superior mesenteric artery, and bilateral iliac arteries. There is multilevel thoracolumbar spondylosis. There is multilevel lumbar facet degenerative change. There is degree of lateral recess stenosis bilaterally at L4-5 and on the right at L3-4 in part from facet degenerative change. There is lumbar neural foramina compromise, more significant narrowing the right L5-S1. There is nonspecific mild prominence of urinary bladder [place]. There is a small 0.6 cm nonspecific lytic lesion of the right T12 vertebral body. There is lytic lesion of the superior acetabulum although possibly related to subchondral cyst. There is osteoarthritic change of the hips bilaterally. IMPRESSION: 1. There is cholelithiasis. 2. Appendix is not confidently identified although no significant pericecal inflammatory type change. There is no evidence of bowel obstruction. There is mild retained stool in the colon. 3. There is nonspecific strandy change of the perinephric fat bilaterally. There is no hydronephrosis. There are some small foci of exophytic density of the bilateral kidneys potentially due to hemorrhagic or complex cysts although small solid lesions not excluded. Nonemergent multi phase CT evaluation versus 6 month follow-up to assess stability is recommended. 4. There is mild prominence of the urinary bladder [place], could be due to incomplete distention unless suspicion for cystitis. 5. There is small nonspecific lytic lesion of the right T12 vertebral body. Electronically signed by: Melina Patel MD (10/22/2019 2:34 PM) [id number] DICTATED and SIGNED BY: MELINA PATEL MD DATE: 10/22/19 1434 Course & Med Decision Making: Course & Med Decision Making Pertinent Labs and Imaging studies reviewed. (See chart for details) COVID-19 CRITERIA: The patient was evaluated during the global COVID-19 pandemic, and that diagnosis was suspected/considered upon their initial presentation. Their evaluation, treatment and testing was consistent with current guidelines for patients who present with complaints or symptoms that may be related to COVID-19. See HPI. Alert and oriented x4. Skin pink warm and dry. Patient denies coolness of his extremities or skin color changing. No tenderness to any of his extremities. Abdomen is soft and nontender. Lungs are clear in upper lobes and diminished in lower lobes. I have spoken to Dr. Horton concerning x-ray findings on his foot and the wound. He states that he will take a look at the patient and to not start antibiotics at this time. Patient has an elevated troponin of 0.133. Chest x-ray shows no acute findings. Ultrasound of the left upper arm shows no acute findings. Patient is admitted to Dr. cuevas. I will consult Dr. Horton. [] Mert Disclaimer: Mert Disclaimer: This electronic medical record was generated, in whole or in part, using a voice recognition dictation system. COVID-19 Patient Risks: Age 65 or older: Yes Sign of co-morbidity: Yes Exp to person + for COVID: No Exp to PUI: No Travel from affected area: No Lower respiratory symptoms: Yes Fever: No Other: No PPE Use: Full PPE with N95 mask or PAPR: Yes Departure Departure Impression: Primary Impression: Elevated troponin Additional Impression: Wound of foot Disposition: ADMITTED INPATIENT Admitting Physician: JACKELYN Condition: STABLE Referrals: Rajendra ACOSTA MD (PCP) Justicifation of Admission Dx: Justifications for Admission: Justification of Admission Dx: Yes Comments: ELEVATED TROPONIN PAPITO SANCHEZ LETTER CARRIER Oct 22, 2019 12:04
--- NOTE | 2019-10-22 12:20 | RAD ---
AP chest. HISTORY: Cough AP view was taken of the chest. The patient's taken a poor inspiration. Heart is within normal limits in size. There is no effusion. There are no acute infiltrates. IMPRESSION: 1. Poor inspiration. 2. No acute infiltrates. Electronically signed by: Baldemar Garcia MD (10/22/2019 12:17 PM) [id number]
--- NOTE | 2019-10-22 12:23 | RAD ---
Left foot 3 views. HISTORY: Foot pain, nonhealing wound 3 views were taken of the left foot. There is been a amputation just distal to the tarsal metatarsal joints. There is soft tissue swelling. There is mottling of the bone from osteoporosis. There are small erosions on the cuboid on the lateral view and the anterior talus on the lateral view. I do not have an old study for comparison. IMPRESSION: 1. Previous amputation. 2. Small erosions. 3. MRI could be of benefit to evaluate for osteomyelitis. Electronically signed by: Baldemar Garcia MD (10/22/2019 12:20 PM) [id number]
[2019-10-22 12:46] LABS: BASO # 0.1 x10^3/uL (0.0-0.2); BASO % 1 % (0-3); EOS # 0.2 x10^3/uL (0.0-0.7); EOS % 2 % (0-3); HEMATOCRIT 23.3 % (39.0-53.0); LYMPH # 0.8 x10^3/uL (1.0-4.8); LYMPH % 8 % (24-48); MEAN CORPUSCULAR HEMOGLOBIN 29 pg (25-35); MEAN CORPUSCULAR HGB CONC 35 g/dL (31-37); MEAN CORPUSCULAR VOLUME 84 fL (79-100); MONO # 0.8 x10^3/uL (0.0-1.1); MONO % 8 % (0-9); NEUT # 7.8 x10^3/uL (1.8-7.7); NEUT % 81 % (31-73); PLATELET COUNT 284 x10^3/uL (140-400); RED BLOOD COUNT 2.78 x10^6/uL (4.30-5.70); RED CELL DISTRIBUTION WIDTH 15.5 % (11.5-14.5); WHITE BLOOD COUNT 9.7 x10^3/uL (4.0-11.0)
--- NOTE | 2019-10-22 12:50 | RAD ---
Left upper extremity venous Doppler ultrasound History: Left arm swelling Comparison: None. Findings: Multiple grayscale, color, duplex spectral analysis waveform images of the left upper extremity veins are submitted. Interrogated left upper extremity veins are patent with normal color flow, compressibility, and phasicity, no thrombus demonstrated. Impression: 1. Left upper extremity veins are patent, no thrombus demonstrated. Electronically signed by: Gama Yousif MD (10/22/2019 12:47 PM) [id number]
[2019-10-22 12:56] LABS: CALCIUM 8.7 mg/dL (8.5-10.1); CREATININE 1.4 mg/dL (0.7-1.3); GFR 49.8; POTASSIUM 3.5 mmol/L (3.5-5.1); PROTHROMBIN TIME PATIENT 14.3 SEC (11.7-14.0)
[2019-10-22] MEDS ORDERED: IV NORMAL SALINE 500ML BAG 500 ML IV ONE (13:00)
[2019-10-22 13:02] LABS: ALBUMIN 2.3 g/dL (3.4-5.0); ALBUMIN/GLOBULIN RATIO 0.5 (1.0-1.7); TOTAL BILIRUBIN 0.3 mg/dL (0.2-1.0)
[2019-10-22 13:42] LABS: BILIRUBIN,URINE NEGATIVE (NEG); CLARITY,URINE CLEAR; COLOR,URINE YELLOW; NITRITE,URINE NEGATIVE (NEG); PROTEIN,URINE 100 mg/dL (NEG-TRACE); UROBILINOGEN,URINE 0.2 mg/dL (0.2 mg/dL)
[2019-10-22] MEDS ORDERED: IOHEXOL 300 MG/ML 100ML VIAL. IV ONE (13:45)
[2019-10-22 13:46] LABS: BACTERIA,URINE 0 /HPF (0-FEW); SQUAMOUS EPITHELIAL CELL,UR OCC /LPF; WBC,URINE OCC /HPF (0-4)
[2019-10-22 13:47] LABS: HYALINE CASTS, URINE FEW /HPF
[2019-10-22] MEDS ORDERED: CONTRAST GIVEN. MC PRN (14:00)
--- NOTE | 2019-10-22 14:37 | RAD ---
CT ABD PELV W/ IV CONTRST ONLY Indication: Constipation, abdominal pain, PUI Technique: Postcontrast CT imaging was performed of the abdomen pelvis, multiplanar reconstruction images submitted. No oral contrast was given. One or more of the following individualized dose reduction techniques were utilized for this examination: 1. Automated exposure control 2. Adjustment of the mA and/or kV according to patient size 3. Use of iterative reconstruction technique. Comparison: None Findings: There is motion degradation. There is no significant abnormality of the limited visualized lung bases. There is coronary calcification. There is cholelithiasis. There is mild fullness of the left adrenal gland without discrete nodularity, no right adrenal nodule. No significant focal abnormality is identified of the liver or partially fat replaced pancreas. There is small splenic granuloma. Both kidneys enhance without hydronephrosis. There is nonspecific stranding change of the perinephric fat bilaterally greater on the left. No renal calculus is identified. There is somewhat lobulated contour of the bilateral kidneys, also exophytic focus of density of the inferior right kidney about 1 cm with density measurements similar to adjacent renal parenchyma. There is also small exophytic focus of density of the inferior left kidney about 0.7 cm, similar density measurements compared with adjacent parenchyma. Evaluation of bowel is somewhat limited without oral contrast. Bowel is not dilated. There is no free fluid or free air. There is mild retained stool in the colon. Appendix is not clearly identified if still present, no significant pericecal inflammatory type change. There is mild scattered plaque of the abdominal aorta, also of the proximal superior mesenteric artery, and bilateral iliac arteries. There is multilevel thoracolumbar spondylosis. There is multilevel lumbar facet degenerative change. There is degree of lateral recess stenosis bilaterally at L4-5 and on the right at L3-4 in part from facet degenerative change. There is lumbar neural foramina compromise, more significant narrowing the right L5-S1. There is nonspecific mild prominence of urinary bladder [place]. There is a small 0.6 cm nonspecific lytic lesion of the right T12 vertebral body. There is lytic lesion of the superior acetabulum although possibly related to subchondral cyst. There is osteoarthritic change of the hips bilaterally. IMPRESSION: 1. There is cholelithiasis. 2. Appendix is not confidently identified although no significant pericecal inflammatory type change. There is no evidence of bowel obstruction. There is mild retained stool in the colon. 3. There is nonspecific strandy change of the perinephric fat bilaterally. There is no hydronephrosis. There are some small foci of exophytic density of the bilateral kidneys potentially due to hemorrhagic or complex cysts although small solid lesions not excluded. Nonemergent multi phase CT evaluation versus 6 month follow-up to assess stability is recommended. 4. There is mild prominence of the urinary bladder [place], could be due to incomplete distention unless suspicion for cystitis. 5. There is small nonspecific lytic lesion of the right T12 vertebral body. Electronically signed by: Gama Yousif MD (10/22/2019 2:34 PM) [id number]
[2019-10-22] MEDS ORDERED: fentaNYL PF VIAL 100 MCG/2 ML VIAL IV PRN (15:30)
[2019-10-22] MEDS ORDERED: ONDANSETRON PF 4 MG/2 ML VIAL. IV PRN (15:30)
--- NOTE | 2019-10-22 15:55 | EKG ---
[facility] [address] [place] [address] Test Date: 2019-10-22 Test Time: 12:33:39 Pat Name: LACI RASCON Department: Room: Gender: M [employer]: : 1945 Requested By: PAPITO SANCHEZ Order Number: [id number] Reading MD: Measurements Intervals Opdyke Rate: 90 P: 53 OR: 192 QRS: 31 QRSD: 98 T: 37 QT: 374 QTc: 462 Interpretive Statements SINUS RHYTHM NORMAL ECG RI6.01 No previous ECG available for comparison
[2019-10-22 17:40] VITALS: BP 146/74
[2019-10-22] MEDS ORDERED: DEXTROSE 50% 25 GM / 50ML DISP.SYRIN. IV PRN (17:45)
--- NOTE | 2019-10-22 17:59 | NUR ---
Pt brought to room via wheelchair at approx and was able to pivot and turn with assist x 1 to the bed. pt had a brief on that was completely soaked. Pt states that he constantly urinates allover his self and legs. wound photos taken and dr. Zambrano notified. Orders recieved for catheter placement to help the patients skin heal. Pt denies any chest pain and states that he has not had any pain in his chest at all. Pt washed, settled in room, oriented to surroundings ands staff. Will continue to monitor as pt hooked up to monitor at this time.
--- NOTE | 2019-10-22 19:31 | PDOC1 ---
History and Physical Date of Admission Date of Admission DATE: 10/22/19 TIME: 19:31 Identification/Chief Complaint Chief Complaint weakness, Source Source: Chart review, Patient History of Present Illness History of Present Illness Mr. Herrera is a 74 year old male admti with mult problems. poor self care. Left arm swelling for a week. 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 he has a rash on his groin from s itting in his own urine at home thurman placed here and he complains of burning pain from the cath, he says he has $1400 prosthetic shoes for his amp foot , but doesnt know where they are, possibly here. . Past Medical History Cardiovascular: HTN, Hyperlipidemia, Other Pulmonary: Other Heme/Onc: Anemia NOS Psych: Depression Musculoskeletal: Other Renal/: Chronic renal insuff, Benign prostatic enlarg. Endocrine: Diabetes Past Surgical History Past Surgical History: Other Family History Family History: Diabetes, Hypertension Social History Smoke: # pack years ALCOHOL: none Drugs: None Current Problem List Problem List Problems Medical Problems: (1) Elevated troponin Status: Acute (2) Wound of foot Status: Acute Current Medications Current Medications Current Medications Sodium Chloride 500 ml @ 500 mls/hr 1X ONCE IV Last administered on 10/22/19at 13:12; Start 10/22/19 at 13:00; Stop 10/22/19 at 13:59; Status DC Iohexol (Omnipaque 300 Mg/ml) 60 ml 1X ONCE IV Last administered on 10/22/19at 13:58; Start 10/22/19 at 13:45; Stop 10/22/19 at 13:47; Status DC Info (CONTRAST GIVEN -- Rx MONITORING) 1 each PRN DAILY PRN MC SEE COMMENTS; Start 10/22/19 at 14:00; Stop 10/24/19 at 13:59 Ondansetron HCl (Zofran) 4 mg PRN Q8HRS PRN IV NAUSEA/VOMITING; Start 10/22/19 at 15:30; Stop 10/23/19 at 15:29 Fentanyl Citrate (Fentanyl 2ml Vial) 50 mcg PRN Q1HR PRN IV PAIN; Start 10/22/19 at 15:30; Stop 10/23/19 at 15:29 Lorazepam (Ativan Inj) 1 mg PRN Q4HRS PRN IVP ANXIETY / AGITATION; Start 10/22/19 at 17:45 Insulin Human Lispro (HumaLOG) 0-9 UNITS TIDWMEALS SQ ; Start 10/23/19 at 08:00 Dextrose (Dextrose 50%-Water Syringe) 12.5 gm PRN Q15MIN PRN IV SEE COMMENTS; Start 10/22/19 at 17:45 Active Scripts Active Bactrim Ds Tablet (Sulfamethoxazole/Trimethoprim) 1 Each Tablet 1 Tab PO BID Klor-Con 10 (Potassium Chloride) 10 Meq Tablet.er 30 Meq PO DAILYWBKFT 7 Days Amlodipine Besylate 5 Mg Tablet 5 Mg PO DAILY Hydralazine Hcl 25 Mg Tablet 50 Mg PO TID Thera-M Tablet (Multivits,Ca,Minerals/Iron/Fa) 1 Each Tablet 1 Tab PO DAILY MDD 1 Budesonide 0.5 Mg/2 Ml Ampul.neb 0.5 Mg NEB RTBID MDD 1 Guaifenesin Dm Syrup (Guaifenesin/Dextromethorphan) 5 Ml Syrup 10 Ml PO PRN Q6HRS PRN MDD 1 Proair Hfa (Albuterol Sulfate) 8.5 Gm Hfa.aer.ad 2.5 Mg NEB PRN Q4HRS PRN MDD 1 Poly-Iron (Iron Polysaccharides Complex) 150 Mg Capsule 150 Mg PO BID MDD 1 Oxycodone Hcl Immed.release (Oxycodone Hcl) 5 Mg Tablet 10 Mg PO PRN Q4HRS PRN MDD 1 Reported Novolog Flexpen (Insulin Aspart) 100 Unit/1 Ml Insuln.pen 30 SQ TIDWMEALS Aspirin 325 Mg Tablet 0.5 Tab PO DAILY Senna-S Tablet (Sennosides/Docusate Sodium) 1 Each Tablet 1 Each PO BID Nyamyc (Nystatin) 15 Gm Powder 15 Gm TP DAILY Culturelle (Lactobacillus Rhamnosus Gg) 1 Each Capsule 1 Each PO BIDWMEALS Lantus Solostar (Insulin Glargine,Hum.rec.anlog) 100 Unit/1 Ml Insuln.pen 45 Unit SQ QHS Cvs Glucosamine-Chondr Tablet (Glucosamine Hcl/Chondr [place] A Na) 1 Each Tablet 2 Each PO DAILY Flonase Allergy Relief (Fluticasone Propionate) 9.9 Ml [place].susp 2 Sprays NS DAILY Diphenhydramine Hcl 50 Mg Capsule 25 Mg PO Q6HRS PRN Vitamin D3 (Cholecalciferol (Vitamin D3)) 1,000 Unit Tablet 2,000 Unit PO DAILY Atorvastatin Calcium 20 Mg Tablet DAILY Furosemide 20 Mg Tablet 40 Mg BID Lisinopril 40 Mg Tablet 40 DAILY Carvedilol 25 Mg Tablet 25 BID Pantoprazole Sodium (Pantoprazole Sodium) 40 Mg Tablet.dr DAILY Allergies Allergies: Coded Allergies: cefuroxime (Verified Allergy, Intermediate, 11/02/18) piperacillin (Verified Adverse Reaction, Intermediate, RASH, 11/02/18) TOLERATED ERTAPENEM tazobactam (Verified Adverse Reaction, Intermediate, RASH, 11/02/18) TOLERATED ERTAPENEM zolpidem (Verified Adverse Reaction, Intermediate, HALLUCINATIONS, 11/02/18) glipizide (Verified Adverse Reaction, Mild, SENSITIVITY TO SUN, 11/02/18) Uncoded Allergies: DUST (Allergy, Mild, SNEEZING, 10/25/15) ROS General: YES: Fatigue, Malaise PSYCHOLOGICAL ROS: No: Anxiety, Behavioral Disorder, Concentration difficultie, Decreased libido, Depression, Disorientation, Hallucinations, Hostility, Irritablity, Memory difficulties, Mood Swings, Obsessive thoughts, Physical abus e, Sexual abuse, Sleep disturbances, Suicidal ideation, Other Eyes: No Blurry vision, No Decreased vision, No Double vision, No Dry eyes, No Excessive tearing, No Eye Pain, No Itchy Eyes, No Loss of vision, No Photophobia, No Scotomata, No Uses contacts, No Uses glasses, No Other Respiratory: YES: Cough, SOB with excertion; No: Hemoptysis, Orthopnea, Pleuritic Pain, Shortness of breath, Sputum Changes, Stridor, Tachypnea, Wheezing, Other Cardiovascular: No Chest Pain, No Palpitations, No Orthopnea, No Paroxysmal Noc. Dyspnea, No Edema, No Lt Headedness, No Other Gastrointestinal: No Nausea, No Vomiting, No Abdominal Pain, No Diarrhea, No Constipation, No Melena, No Hematochezia, No Other Genitourinary: No Dysuria, No Frequency, No Incontinence, No Hematuria, No Retention, No Discharge, No Urgency, No Pain, No Flank Pain, No Other, No , No , No , No , No , No , No Musculoskeletal: Yes Gait Disturbance, Yes Joint Pain, Yes Joint Stiffness, Yes Muscular Weakness; No Joint Swelling, No Muscle Pain, No Pain In:, No Swelling In:, No Other Neurological: No Behavorial Changes, No Bowel/Bladder ControlChng, No Conf usion, No Dizziness, No Gait Disturbance, No Headaches, No Impaired Coord/balance, No Memory Loss, No Numbness/Tingling, No Seizures, No Speech Problems, No Tremors, No Visual Changes, No Weakness, No Other Skin: Yes Dry Skin, Yes Rash, Yes Skin Lesion Changes; No Eczema, No Hair Changes, No Lumps, No Mole Changes, No Mottling, No Nail Changes, No Pruritus, No Other, No Acne Physical Exam General: Alert, Oriented X3, Cooperative HEENT: Atraumatic Lungs: Clear to auscultation Abdomen: Soft Extremities: Other (arm edema, no LE edema) Skin: Other (left toe 1X1 ulcer, left foot stump 3x3 lesions, rash to groin with excoriations, mult small lesions are arms that he blames on his cat, but looks small and circular, ) Neuro: Normal speech, Sensation intact Psych/Mental Status: Mental status NL, Mood NL Vitals Vitals Vital Signs Date Time Temp Pulse Resp B/P (MAP) Pulse Ox O2 Delivery O2 Flow Rate FiO2 10/22/19 18:07 Room Air 10/22/19 17:40 99.9 81 20 146/74 (98) 96 99.9 Labs Labs Laboratory Tests Test 10/22/19 12:30 10/22/19 13:30 White Blood Count 9.7 x10^3/uL (4.0-11.0) Red Blood Count 2.78 x10^6/uL (4.30-5.70) Hemoglobin 8.0 g/dL (13.0-17.5) Hematocrit 23.3 % (39.0-53.0) Mean Corpuscular Volume 84 fL (79-100) Mean Corpuscular Hemoglobin 29 pg (25-35) Mean Corpuscular Hemoglobin Concent 35 g/dL (31-37) Red Cell Distribution Width 15.5 % (11.5-14.5) Platelet Count 284 x10^3/uL (140-400) Neutrophils (%) (Auto) 81 % (31-73) Lymphocytes (%) (Auto) 8 % (24-48) Monocytes (%) (Auto) 8 % (0-9) Eosinophils (%) (Auto) 2 % (0-3) Basophils (%) (Auto) 1 % (0-3) Neutrophils # (Auto) 7.8 x10^3/uL (1.8-7.7) Lymphocytes # (Auto) 0.8 x10^3/uL (1.0-4.8) Monocytes # (Auto) 0.8 x10^3/uL (0.0-1.1) Eosinophils # (Auto) 0.2 x10^3/uL (0.0-0.7) Basophils # (Auto) 0.1 x10^3/uL (0.0-0.2) Prothrombin Time 14.3 SEC (11.7-14.0) Prothromb Time International Ratio 1.2 (0.8-1.1) Sodium Level 139 mmol/L (136-145) Potassium Level 3.5 mmol/L (3.5-5.1) Chloride Level 104 mmol/L (98-107) Carbon Dioxide Level 26 mmol/L (21-32) Anion Gap 9 (6-14) Blood Urea Nitrogen 23 mg/dL (8-26) Creatinine 1.4 mg/dL (0.7-1.3) Estimated GFR (Cockcroft-Gault) 49.8 BUN/Creatinine Ratio 16 (6-20) Glucose Level 266 mg/dL (70-99) Lactic Acid Level 1.1 mmol/L (0.4-2.0) Calcium Level 8.7 mg/dL (8.5-10.1) Total Bilirubin 0.3 mg/dL (0.2-1.0) Aspartate Amino Transf (AST/SGOT) 14 U/L (15-37) Alanine Aminotransferase (ALT/SGPT) 20 U/L (16-63) Alkaline Phosphatase 95 U/L (46-116) Troponin I Quantitative 0.133 ng/mL (0.000-0.055) Total Protein 7.0 g/dL (6.4-8.2) Albumin 2.3 g/dL (3.4-5.0) Albumin/Globulin Ratio 0.5 (1.0-1.7) Lipase 70 U/L (73-393) Urine Collection Type Unknown Urine Color Yellow Urine Clarity Clear Urine pH 5.0 (<5.0-8.0) Urine Specific [place] 1.010 (1.000-1.030) Urine Protein 100 mg/dL (NEG-TRACE) Urine Glucose (UA) 250 mg/dL (NEG) Urine Ketones (Stick) Negative mg/dL (NEG) Urine Blood Trace (NEG) Urine Nitrite Negative (NEG) Urine Bilirubin Negative (NEG) Urine Urobilinogen Dipstick 0.2 mg/dL (0.2 mg/dL) Urine Leukocyte Esterase Negative (NEG) Urine RBC 3-5 /HPF (0-2) Urine WBC Occ /HPF (0-4) Urine Squamous Epithelial Cells Occ /LPF Urine Bacteria 0 /HPF (0-FEW) Urine Hyaline Casts Few /HPF Laboratory Tests Test 10/22/19 12:30 10/22/19 13:30 White Blood Count 9.7 x10^3/uL (4.0-11.0) Red Blood Count 2.78 x10^6/uL (4.30-5.70) Hemoglobin 8.0 g/dL (13.0-17.5) Hematocrit 23.3 % (39.0-53.0) Mean Corpuscular Volume 84 fL (79-100) Mean Corpuscular Hemoglobin 29 pg (25-35) Mean Corpuscular Hemoglobin Concent 35 g/dL (31-37) Red Cell Distribution Width 15.5 % (11.5-14.5) Platelet Count 284 x10^3/uL (140-400) Neutrophils (%) (Auto) 81 % (31-73) Lymphocytes (%) (Auto) 8 % (24-48) Monocytes (%) (Auto) 8 % (0-9) Eosinophils (%) (Auto) 2 % (0-3) Basophils (%) (Auto) 1 % (0-3) Neutrophils # (Auto) 7.8 x10^3/uL (1.8-7.7) Lymphocytes # (Auto) 0.8 x10^3/uL (1.0-4.8) Monocytes # (Auto) 0.8 x10^3/uL (0.0-1.1) Eosinophils # (Auto) 0.2 x10^3/uL (0.0-0.7) Basophils # (Auto) 0.1 x10^3/uL (0.0-0.2) Prothrombin Time 14.3 SEC (11.7-14.0) Prothromb Time International Ratio 1.2 (0.8-1.1) Sodium Level 139 mmol/L (136-145) Potassium Level 3.5 mmol/L (3.5-5.1) Chloride Level 104 mmol/L (98-107) Carbon Dioxide Level 26 mmol/L (21-32) Anion Gap 9 (6-14) Blood Urea Nitrogen 23 mg/dL (8-26) Creatinine 1.4 mg/dL (0.7-1.3) Estimated GFR (Cockcroft-Gault) 49.8 BUN/Creatinine Ratio 16 (6-20) Glucose Level 266 mg/dL (70-99) Lactic Acid Level 1.1 mmol/L (0.4-2.0) Calcium Level 8.7 mg/dL (8.5-10.1) Total Bilirubin 0.3 mg/dL (0.2-1.0) Aspartate Amino Transf (AST/SGOT) 14 U/L (15-37) Alanine Aminotransferase (ALT/SGPT) 20 U/L (16-63) Alkaline Phosphatase 95 U/L (46-116) Troponin I Quantitative 0.133 ng/mL (0.000-0.055) Total Protein 7.0 g/dL (6.4-8.2) Albumin 2.3 g/dL (3.4-5.0) Albumin/Globulin Ratio 0.5 (1.0-1.7) Lipase 70 U/L (73-393) Urine Collection Type Unknown Urine Color Yellow Urine Clarity Clear Urine pH 5.0 (<5.0-8.0) Urine Specific [place] 1.010 (1.000-1.030) Urine Protein 100 mg/dL (NEG-TRACE) Urine Glucose (UA) 250 mg/dL (NEG) Urine Ketones (Stick) Negative mg/dL (NEG) Urine Blood Trace (NEG) Urine Nitrite Negative (NEG) Urine Bilirubin Negative (NEG) Urine Urobilinogen Dipstick 0.2 mg/dL (0.2 mg/dL) Urine Leukocyte Esterase Negative (NEG) Urine RBC 3-5 /HPF (0-2) Urine WBC Occ /HPF (0-4) Urine Squamous Epithelial Cells Occ /LPF Urine Bacteria 0 /HPF (0-FEW) Urine Hyaline Casts Few /HPF VTE Prophylaxis Ordered VTE Prophylaxis Devices: No VTE Pharmacological Prophylaxi: Yes Assessment/Plan Assessment/Plan foot wounds, wound care eval, chest pain, elevated troponin , trend, check labs weakness and debility, unable ot care for himself, poor skin care, rash to groin, morbid obesity, BMI 50, with current severe malnutrition CKD 3, hydrate, Justicifation of Admission Dx: Justifications for Admission: Justification of Admission Dx: Yes KATHRIN PETERSON MD Oct 22, 2019 19:31
[2019-10-22] MEDS ORDERED: PHENAZOPYRIDINE 200 MG TABLET. PO ONE (19:45)
[2019-10-22] MEDS ORDERED: PHENAZOPYRIDINE 200 MG TABLET. PO PRN (19:45)
[2019-10-22 19:48] VITALS: BP 162/88
[2019-10-22] MEDS ORDERED: ALBUTEROL SULFATE 2.5 MG/3 ML NEBU. NEB PRN (20:00)
[2019-10-22] MEDS: BUDESONIDE 0.5 MG/2 ML NEBU. NEB SCH (20:00)
[2019-10-22] MEDS ORDERED: guaiFENesin DM 200MG/20MG 10 ML SYRUP PO PRN (20:00)
[2019-10-22] MEDS: NYSTATIN TOPICAL POWDER 15GM BOTTLE. TP SCH (20:57)
[2019-10-22] MEDS: SENNOSIDES/DOCUSATE 8.6/50MG TABLET. PO SCH (20:59)
[2019-10-22] MEDS: IRON POLYSACCHARIDE COMPLEX 150 MG CAPSULE PO SCH (20:59)
[2019-10-22] MEDS: INSULIN GLARGINE SYRINGE. SQ SCH (21:00)
[2019-10-22] MEDS ORDERED: SMZ/TMP 800/160MG TABLET. PO SCH (21:00)
[2019-10-22] MEDS: MORPHINE SULFATE 4 MG/ML VIAL. IV PRN (22:11)
[2019-10-22 22:49] VITALS: BP 142/67
[2019-10-23] VITALS (7 sets, daily range): BP systolic 120–209; BP diastolic 54–93
[2019-10-23 04:24] LABS: BASO % 1 % (0-3); EOS # 0.3 x10^3/uL (0.0-0.7); EOS % 3 % (0-3); HEMATOCRIT 24.4 % (39.0-53.0); LYMPH # 1.3 x10^3/uL (1.0-4.8); LYMPH % 14 % (24-48); MEAN CORPUSCULAR HEMOGLOBIN 28 pg (25-35); MEAN CORPUSCULAR HGB CONC 33 g/dL (31-37); MEAN CORPUSCULAR VOLUME 84 fL (79-100); MONO # 0.9 x10^3/uL (0.0-1.1); MONO % 10 % (0-9); NEUT # 6.7 x10^3/uL (1.8-7.7); NEUT % 72 % (31-73); PLATELET COUNT 275 x10^3/uL (140-400); RED CELL DISTRIBUTION WIDTH 15.7 % (11.5-14.5); WHITE BLOOD COUNT 9.3 x10^3/uL (4.0-11.0)
[2019-10-23 04:44] LABS: ALBUMIN 2.1 g/dL (3.4-5.0); ALBUMIN/GLOBULIN RATIO 0.5 (1.0-1.7); CALCIUM 8.5 mg/dL (8.5-10.1); CREATININE 1.3 mg/dL (0.7-1.3); GFR 54.3; POTASSIUM 3.1 mmol/L (3.5-5.1); TOTAL BILIRUBIN 0.3 mg/dL (0.2-1.0); TOTAL PROTEIN 6.7 g/dL (6.4-8.2)
[2019-10-23 04:49] LABS: CHOLESTEROL/HDL RATIO 5.5
[2019-10-23] MEDS: BUDESONIDE 0.5 MG/2 ML NEBU. NEB SCH ×2 (08:00→18:52)
[2019-10-23] MEDS: CARVEDILOL 12.5 MG TABLET. PO SCH ×2 (08:09→17:18)
[2019-10-23] MEDS: POTASSIUM CHLORIDE 10 MEQ TABLET.ER. PO SCH (08:09)
[2019-10-23] MEDS: INSULIN LISPRO 300 UNITS/3 ML VIAL. SQ SCH ×6 (08:11→17:20)
[2019-10-23] MEDS: FLUTICASONE 50MCG/NASAL SPRAY 16GM BOTTLE. NS SCH (08:12)
[2019-10-23] MEDS: SENNOSIDES/DOCUSATE 8.6/50MG TABLET. PO SCH ×2 (08:12→21:28)
[2019-10-23] MEDS: IRON POLYSACCHARIDE COMPLEX 150 MG CAPSULE PO SCH ×2 (08:12→21:27)
[2019-10-23] MEDS: NYSTATIN TOPICAL POWDER 15GM BOTTLE. TP SCH ×2 (09:00→21:00)
[2019-10-23] MEDS ORDERED: NYSTATIN TOPICAL POWDER 15GM BOTTLE. TP SCH (09:00)
[2019-10-23] MEDS: ATORVASTATIN CALCIUM 20 MG TABLET PO SCH (09:17)
[2019-10-23] MEDS: PANTOPRAZOLE 40 MG TABLET.DR. PO SCH (09:17)
[2019-10-23] MEDS: ASPIRIN CHEWABLE 81 MG TABLET. PO SCH (09:17)
[2019-10-23] MEDS: CHOLECALCIFEROL (VITAMIN D3) 1,000 UNIT TABLET PO SCH (09:17)
[2019-10-23] MEDS: MULTIVITAMIN with MINERAL TABLET. PO SCH (09:17)
[2019-10-23] MEDS: amLODIPine BESYLATE 5 MG TABLET PO SCH (09:18)
[2019-10-23] MEDS: FUROSEMIDE 40 MG TABLET. PO SCH ×2 (09:18→14:33)
[2019-10-23] MEDS: LISINOPRIL 20 MG TABLET PO SCH (09:18)
--- NOTE | 2019-10-23 12:53 | NUR ---
Pt FSBS 68 at approx 1100. 240 cc of applejuice given to pt and rechecked, FSBS 66. This RN called and notified Dr. Zambrano. No new orders. Will give pt additional 240 cc of apple juice and have pt eat lunch, then recheck FSBS.
--- NOTE | 2019-10-23 15:48 | CONS ---
DATE OF CONSULTATION: 10/23/2019 REASON FOR CONSULTATION: Chest pain. HISTORY OF PRESENT ILLNESS: The patient is a 74-year-old man who was admitted with multiple medical problems. His main issues were inability to care for himself and he apparently reported some very vague chest discomfort and therefore the Cardiology team was consulted for further evaluation. He upon arrival to the hospital was also noted to be significantly hypertensive with systolic blood pressures in the 180s or so. The patient currently denies any chest pain or dyspnea. No orthopnea or PND. He has limited mobility due to his transmetatarsal amputation. PAST MEDICAL HISTORY: 1. Hypertension. 2. Dyslipidemia. 3. Chronic kidney disease. 4. Anemia. 5. Benign prostatic hypertrophy. 6. Type 2 diabetes. PAST SURGICAL HISTORY: None. FAMILY HISTORY: Noncontributory. SOCIAL HISTORY: The patient quit smoking in the 80s. Denies any alcohol or illicit drug use. He lives with his family. ALLERGIES: MULTIPLE NOTED IN THE CHART. CURRENT CARDIAC MEDICATIONS: 1. Lisinopril 40 mg daily. 2. Furosemide 40 mg p.o. b.i.d. 3. Atorvastatin 20 mg daily. 4. Aspirin 162 daily. 5. Amlodipine 5 mg daily. 6. Coreg 25 mg p.o. b.i.d. REVIEW OF SYSTEMS: Negative unless otherwise mentioned above in HPI. PHYSICAL EXAMINATION: GENERAL: He is alert and oriented x 3, cooperative. HEAD AND NECK: Unremarkable. LUNGS: Clear to auscultation. ABDOMEN: Soft. EXTREMITIES: No edema. He has multiple skin changes and ulcers. NEUROLOGIC: No obvious focal deficits. Normal speech, mentation intact with normal mood. DIAGNOSTIC STUDIES: Hemoglobin 8.0, platelets 275. Potassium is 3.1 with a creatinine of 1.3. Imaging of the abdomen and pelvis reveals no obvious pathology. Duplex scan of the lower extremities from 2019 revealed normal right ankle brachial indices and prior occlusion of the anterior tibial artery, but otherwise no significant abnormalities were noted. EKG reveals sinus rhythm without any acute abnormalities and echocardiogram performed in 10/2018 reveals normal LV systolic function. IMPRESSION: 1. Diastolic heart failure with hypertension, uncontrolled. 2. Prior history of lower extremity arterial disease and recurrent wounds. RECOMMENDATIONS: 1. Continue current medical therapy. 2. We will plan for repeat lower extremity arterial Doppler evaluation to ensure that his blood flow is adequate for wound healing. Supportive care for now. We will follow along closely. HALIE RUSSELL MD DR: RUBI/domitila JOB#: [id number] / [id number]
--- NOTE | 2019-10-23 17:56 | PDOC2 ---
CONSULT Date of Consult Date of Consult DATE: 10/23/19 TIME: 17:53 Source Source: Chart review History of Present Illness Reason for Visit: Mr. Herrera is a 74 year old male admitted with multiple problem and poor self care. 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 He states he is been trying to get into [place] for quite some time and states is taking quite some time to get in. Afraid he will get his foot infected due to standing in urine. He has a rash on his groin from sitting in his own urine at home. [place] placed here and he complains of burning pain from the catheter. He says he has $1400 prosthetic shoes for his residual foot , but doesn't know where they are. Past Medical History Cardiovascular: HTN, Hyperlipidemia, Other Pulmonary: Other Heme/Onc: Anemia NOS Psych: Depression Musculoskeletal: Other Renal/: Chronic renal insuff, Benign prostatic enlarg. Endocrine: Diabetes Past Surgical History Past Surgical History: Other Family History Family History: Diabetes, Hypertension Social History # pack years ALCOHOL: none Drugs: None Lives: with Family Current Problem List Problem List Problems Medical Problems: (1) Elevated troponin Status: Acute (2) Wound of foot Status: Acute Current Medications Current Medications Current Medications Sodium Chloride 500 ml @ 500 mls/hr 1X ONCE IV Last administered on 10/22/19at 13:12; Start 10/22/19 at 13:00; Stop 10/22/19 at 13:59; Status DC Iohexol (Omnipaque 300 Mg/ml) 60 ml 1X ONCE IV Last administered on 10/22/19at 13:58; Start 10/22/19 at 13:45; Stop 10/22/19 at 13:47; Status DC Info (CONTRAST GIVEN -- Rx MONITORING) 1 each PRN DAILY PRN MC SEE COMMENTS; Start 10/22/19 at 14:00; Stop 10/24/19 at 13:59 Ondansetron HCl (Zofran) 4 mg PRN Q8HRS PRN IV NAUSEA/VOMITING; Start 10/22/19 at 15:30; Stop 10/23/19 at 15:29; Status DC Fentanyl Citrate (Fentanyl 2ml Vial) 50 mcg PRN Q1HR PRN IV PAIN Last administered on 10/22/19at 20:17; Start 10/22/19 at 15:30; Stop 10/23/19 at 15:29; Status DC Lorazepam (Ativan Inj) 1 mg PRN Q4HRS PRN IVP ANXIETY / AGITATION Last administered on 10/22/19at 19:32; Start 10/22/19 at 17:45 Insulin Human Lispro (HumaLOG) 0-9 UNITS TIDWMEALS SQ Last administered on 10/23/19at 08:11; Start 10/23/19 at 08:00 Dextrose (Dextrose 50%-Water Syringe) 12.5 gm PRN Q15MIN PRN IV SEE COMMENTS; Start 10/22/19 at 17:45 Phenazopyridine HCl (Pyridium) 200 mg 1X ONCE PO Last administered on 10/22/19at 20:59; Start 10/22/19 at 19:45; Stop 10/22/19 at 19:48; Status DC Phenazopyridine HCl (Pyridium) 200 mg PRN TID PRN PO URINARY PAIN; Start 10/22/19 at 19:45 Morphine Sulfate (Morphine Sulfate) 4 mg PRN Q2HR PRN IV PAIN Last administered on 10/22/19at 22:11; Start 10/22/19 at 19:45 Cyclobenzaprine HCl (Flexeril) 10 mg PRN Q6HRS PRN PO MUSCLE SPASMS; Start at 20:00 Albuterol Sulfate (Ventolin Neb Soln) 2.5 mg PRN Q4HRS PRN NEB SHORTNESS OF BREATH; Start 10/22/19 at 20:00 Amlodipine Besylate (Norvasc) 5 mg DAILY PO Last administered on 10/23/19at 09:18; Start 10/23/19 at 09:00 Aspirin (Aspirin Chewable) 162 mg DAILY PO Last administered on 10/23/19 09:17; Start 10/23/19 at 09:00 Atorvastatin Calcium (Lipitor) 20 mg DAILY PO Last administered on 10/23/19at 09:17; Start 10/23/19 at 09:00 Budesonide (Pulmicort) 0.5 mg RTBID NEB ; Start 10/22/19 at 20:00 Vitamin D (Vitamin D3) 2,000 unit DAILY PO Last administered on 10/23/19 09:17; Start 10/23/19 at 09:00 Furosemide (Lasix) 40 mg BID92 PO Last administered on 10/23/19 14:33; Start 10/23/19 at 09:00 Guaifenesin (Robitussin Dm) 10 ml PRN Q6HRS PRN PO COUGH, 1st CHOICE; Start 10/22/19 at 20:00 Hydralazine HCl (Apresoline) 50 mg TID PO Last administered on 10/23/19 14:33; Start 10/22/19 at 21:00 Polysaccharide Iron Complex (Niferex 150) 150 mg BID PO Last administered on 10/23/19 08:12; Start 10/22/19 at 21:00 Lisinopril (Prinivil) 40 mg DAILY PO Last administered on 10/23/19 09:18; Start 10/23/19 at 09:00 Multivitamins (Thera M Plus) 1 tab DAILY PO Last administered on 10/23/19 09:17; Start 10/23/19 at 09:00 Nystatin (Nystop) 1 ritu DAILY TP ; Start 10/23/19 at 09:00; Status Cancel Oxycodone HCl (Roxicodone) 10 mg PRN Q4HRS PRN PO SEVERE PAIN 7-10; Start 10/22/19 at 20:00 Pantoprazole Sodium (Protonix) 40 mg DAILY PO Last administered on 10/23/19 09:17; Start 10/23/19 at 09:00 Potassium Chloride (Klor-Con) 30 meq DAILYWBKFT PO Last administered on 10/23/19at 08:09; Start 10/23/19 at 08:00 Senna/Docusate Sodium (Senna Plus) 1 tab BID PO Last administered on 10/23/19at 08:12; Start 10/22/19 at 21:00 Trimethoprim/ Sulfamethoxazole (Bactrim Ds) 1 tab BID PO ; Start 10/22/19 at 21:00; Stop 10/22/19 at 20:01; Status DC Carvedilol (Coreg) 25 mg BIDWMEALS PO Last administered on 10/23/19 17:18; Start 10/23/19 at 08:00 Fluticasone Propionate (Flonase) 2 spray DAILY NS Last administered on 10/23/19at 08:12; Start 10/23/19 at 09:00 Insulin Human Lispro (HumaLOG) 30 units TIDWMEALS SQ Last administered on 10/23/19at 08:11; Start 10/23/19 at 08:00; Stop 10/23/19 at 12:59; Status DC Insulin Glargine (Lantus Syringe) 45 unit QHS SQ Last administered on 10/22/19at 21:00; Start 10/22/19 at 21:00 Nystatin (Nystop) 1 ritu BID TP Last administered on 10/23/19at 09:00; Start 10/22/19 at 21:00 Enoxaparin Sodium (Lovenox Per Pharmacy Prophylaxis Dosing) 1 each PRN DAILY PRN MC SEE COMMENTS; Start 10/22/19 at 20:00 Enoxaparin Sodium (Lovenox 60mg Syringe) 60 mg Q12HR SQ Last administered on 10/23/19at 08:12; Start 10/22/19 at 21:00 Insulin Human Lispro (HumaLOG) 18 units TIDWMEALS SQ Last administered on 10/23/19at 17:20; Start 10/23/19 at 17:00 Active Scripts Active Bactrim Ds Tablet (Sulfamethoxazole/Trimethoprim) 1 Each Tablet 1 Tab PO BID Klor-Con 10 (Potassium Chloride) 10 Meq Tablet.er 30 Meq PO DAILYWBKFT 7 Days Amlodipine Besylate 5 Mg Tablet 5 Mg PO DAILY Hydralazine Hcl 25 Mg Tablet 50 Mg PO TID Thera-M Tablet (Multivits,Ca,Minerals/Iron/Fa) 1 Each Tablet 1 Tab PO DAILY MDD 1 Budesonide 0.5 Mg/2 Ml Ampul.neb 0.5 Mg NEB RTBID MDD 1 Guaifenesin Dm Syrup (Guaifenesin/Dextromethorphan) 5 Ml Syrup 10 Ml PO PRN Q6HRS PRN MDD 1 Proair Hfa (Albuterol Sulfate) 8.5 Gm Hfa.aer.ad 2.5 Mg NEB PRN Q4HRS PRN MDD 1 Poly-Iron (Iron Polysaccharides Complex) 150 Mg Capsule 150 Mg PO BID MDD 1 Oxycodone Hcl Immed.release (Oxycodone Hcl) 5 Mg Tablet 10 Mg PO PRN Q4HRS PRN MDD 1 Reported Novolog Flexpen (Insulin Aspart) 100 Unit/1 Ml Insuln.pen 30 SQ TIDWMEALS Aspirin 325 Mg Tablet 0.5 Tab PO DAILY Senna-S Tablet (Sennosides/Docusate Sodium) 1 Each Tablet 1 Each PO BID Nyamyc (Nystatin) 15 Gm Powder 15 Gm TP DAILY Culturelle (Lactobacillus Rhamnosus Gg) 1 Each Capsule 1 Each PO BIDWMEALS Lantus Solostar (Insulin Glargine,Hum.rec.anlog) 100 Unit/1 Ml Insuln.pen 45 Unit SQ QHS [facility] Glucosamine-Chondr Tablet (Glucosamine Hcl/Chondr [place] A Na) 1 Each Tablet 2 Each PO DAILY Flonase Allergy Relief (Fluticasone Propionate) 9.9 Ml [place].susp 2 Sprays NS DAILY Diphenhydramine Hcl 50 Mg Capsule 25 Mg PO Q6HRS PRN Vitamin D3 (Cholecalciferol (Vitamin D3)) 1,000 Unit Tablet 2,000 Unit PO DAILY Atorvastatin Calcium 20 Mg Tablet DAILY Furosemide 20 Mg Tablet 40 Mg BID Lisinopril 40 Mg Tablet 40 DAILY Carvedilol 25 Mg Tablet 25 BID Pantoprazole Sodium (Pantoprazole Sodium) 40 Mg Tablet.dr DAILY Allergies Allergies: Coded Allergies: cefuroxime (Verified Allergy, Intermediate, 11/02/18) piperacillin (Verified Adverse Reaction, Intermediate, RASH, 11/02/18) TOLERATED ERTAPENEM tazobactam (Verified Adverse Reaction, Intermediate, RASH, 11/02/18) TOLERATED ERTAPENEM zolpidem (Verified Adverse Reaction, Intermediate, HALLUCINATIONS, 11/02/18) glipizide (Verified Adverse Reaction, Mild, SENSITIVITY TO SUN, 11/02/18) Uncoded Allergies: DUST (Allergy, Mild, SNEEZING, 10/25/15) ROS Review of System Constitutional: Denies fever or chills. Eyes: Denies change in visual acuity. HENT: Denies nasal congestion or sore throat. Respiratory: cough or denies shortness of breath. Cardiovascular: Denies chest pain or edema. GI: admits intermittent generalized cramping abdominal pain and constipation, but denies nausea, vomiting, bloody stools or diarrhea. : Denies dysuria. Musculoskeletal: Denies back pain or joint pain. Left arm swelling. Integument: Denies rash. Quarter sized left foot wound. Neurologic: Denies headache, focal weakness or sensory changes. Endocrine: Denies polyuria or polydipsia. Lymphatic: Denies swollen glands. Psychiatric: Denies depression or anxiety. Physical Exam General: Alert, Cooperative HEENT: Atraumatic Lungs: Normal air movement Heart: Regular rate Abdomen: Soft Extremities: Other (The transmetatarsal amputation has superficial ulceration. There is minimal swelling, I do not see evidence of osteomyelitis clinically.) Vitals VITALS Vital Signs Date Time Temp Pulse Resp B/P (MAP) Pulse Ox O2 Delivery O2 Flow Rate FiO2 10/23/19 17:18 75 128/59 10/23/19 15:32 99.3 18 95 Room Air 99.3 Labs Labs Laboratory Tests Test 10/22/19 12:30 10/22/19 13:30 10/22/19 20:44 10/23/19 03:30 White Blood Count 9.7 x10^3/uL (4.0-11.0) 9.3 x10^3/uL (4.0-11.0) Red Blood Count 2.78 x10^6/uL (4.30-5.70) 2.90 x10^6/uL (4.30-5.70) Hemoglobin 8.0 g/dL (13.0-17.5) 8.0 g/dL (13.0-17.5) Hematocrit 23.3 % (39.0-53.0) 24.4 % (39.0-53.0) Mean Corpuscular Volume 84 fL (79-100) 84 fL (79-100) Mean Corpuscular Hemoglobin 29 pg (25-35) 28 pg (25-35) Mean Corpuscular Hemoglobin Concent 35 g/dL (31-37) 33 g/dL (31-37) Red Cell Distribution Width 15.5 % (11.5-14.5) 15.7 % (11.5-14.5) Platelet Count 284 x10^3/uL (140-400) 275 x10^3/uL (140-400) Neutrophils (%) (Auto) 81 % (31-73) 72 % (31-73) Lymphocytes (%) (Auto) 8 % (24-48) 14 % (24-48) Monocytes (%) (Auto) 8 % (0-9) 10 % (0-9) Eosinophils (%) (Auto) 2 % (0-3) 3 % (0-3) Basophils (%) (Auto) 1 % (0-3) 1 % (0-3) Neutrophils # (Auto) 7.8 x10^3/uL (1.8-7.7) 6.7 x10^3/uL (1.8-7.7) Lymphocytes # (Auto) 0.8 x10^3/uL (1.0-4.8) 1.3 x10^3/uL (1.0-4.8) Monocytes # (Auto) 0.8 x10^3/uL (0.0-1.1) 0.9 x10^3/uL (0.0-1.1) Eosinophils # (Auto) 0.2 x10^3/uL (0.0-0.7) 0.3 x10^3/uL (0.0-0.7) Basophils # (Auto) 0.1 x10^3/uL (0.0-0.2) 0.0 x10^3/uL (0.0-0.2) Prothrombin Time 14.3 SEC (11.7-14.0) Prothromb Time International Ratio 1.2 (0.8-1.1) Sodium Level 139 mmol/L (136-145) 143 mmol/L (136-145) Potassium Level 3.5 mmol/L (3.5-5.1) 3.1 mmol/L (3.5-5.1) Chloride Level 104 mmol/L (98-107) 106 mmol/L (98-107) Carbon Dioxide Level 26 mmol/L (21-32) 27 mmol/L (21-32) Anion Gap 9 (6-14) 10 (6-14) Blood Urea Nitrogen 23 mg/dL (8-26) 16 mg/dL (8-26) Creatinine 1.4 mg/dL (0.7-1.3) 1.3 mg/dL (0.7-1.3) Estimated GFR (Cockcroft-Gault) 49.8 54.3 BUN/Creatinine Ratio 16 (6-20) 12 (6-20) Glucose Level 266 mg/dL (70-99) 170 mg/dL (70-99) Lactic Acid Level 1.1 mmol/L (0.4-2.0) Calcium Level 8.7 mg/dL (8.5-10.1) 8.5 mg/dL (8.5-10.1) Total Bilirubin 0.3 mg/dL (0.2-1.0) 0.3 mg/dL (0.2-1.0) Aspartate Amino Transf (AST/SGOT) 14 U/L (15-37) 14 U/L (15-37) Alanine Aminotransferase (ALT/SGPT) 20 U/L (16-63) 18 U/L (16-63) Alkaline Phosphatase 95 U/L (46-116) 90 U/L (46-116) Troponin I Quantitative 0.133 ng/mL (0.000-0.055) 0.097 ng/mL (0.000-0.055) Total Protein 7.0 g/dL (6.4-8.2) 6.7 g/dL (6.4-8.2) Albumin 2.3 g/dL (3.4-5.0) 2.1 g/dL (3.4-5.0) Albumin/Globulin Ratio 0.5 (1.0-1.7) 0.5 (1.0-1.7) Lipase 70 U/L (73-393) Urine Collection Type Unknown Urine Color Yellow Urine Clarity Clear Urine pH 5.0 (<5.0-8.0) Urine Specific [place] 1.010 (1.000-1.030) Urine Protein 100 mg/dL (NEG-TRACE) Urine Glucose (UA) 250 mg/dL (NEG) Urine Ketones (Stick) Negative mg/dL (NEG) Urine Blood Trace (NEG) Urine Nitrite Negative (NEG) Urine Bilirubin Negative (NEG) Urine Urobilinogen Dipstick 0.2 mg/dL (0.2 mg/dL) Urine Leukocyte Esterase Negative (NEG) Urine RBC 3-5 /HPF (0-2) Urine WBC Occ /HPF (0-4) Urine Squamous Epithelial Cells Occ /LPF Urine Bacteria 0 /HPF (0-FEW) Urine Hyaline Casts Few /HPF Glucose (Fingerstick) 238 mg/dL (70-99) Triglycerides Level 162 mg/dL (0-150) Cholesterol Level 131 mg/dL (0-200) LDL Cholesterol, Calculated 75 mg/dL (0-100) VLDL Cholesterol, Calculated 32 mg/dL (0-40) Non-HDL Cholesterol Calculated 107 mg/dL (0-129) HDL Cholesterol 24 mg/dL (40-60) Cholesterol/HDL Ratio 5.5 Test 10/23/19 07:30 10/23/19 10:59 10/23/19 12:48 10/23/19 16:34 Glucose (Fingerstick) 165 mg/dL (70-99) 68 mg/dL (70-99) 66 mg/dL (70-99) 139 mg/dL (70-99) Laboratory Tests Test 10/22/19 20:44 10/23/19 03:30 10/23/19 07:30 10/23/19 10:59 Glucose (Fingerstick) 238 mg/dL (70-99) 165 mg/dL (70-99) 68 mg/dL (70-99) White Blood Count 9.3 x10^3/uL (4.0-11.0) Red Blood Count 2.90 x10^6/uL (4.30-5.70) Hemoglobin 8.0 g/dL (13.0-17.5) Hematocrit 24.4 % (39.0-53.0) Mean Corpuscular Volume 84 fL (79-100) Mean Corpuscular Hemoglobin 28 pg (25-35) Mean Corpuscular Hemoglobin Concent 33 g/dL (31-37) Red Cell Distribution Width 15.7 % (11.5-14.5) Platelet Count 275 x10^3/uL (140-400) Neutrophils (%) (Auto) 72 % (31-73) Lymphocytes (%) (Auto) 14 % (24-48) Monocytes (%) (Auto) 10 % (0-9) Eosinophils (%) (Auto) 3 % (0-3) Basophils (%) (Auto) 1 % (0-3) Neutrophils # (Auto) 6.7 x10^3/uL (1.8-7.7) Lymphocytes # (Auto) 1.3 x10^3/uL (1.0-4.8) Monocytes # (Auto) 0.9 x10^3/uL (0.0-1.1) Eosinophils # (Auto) 0.3 x10^3/uL (0.0-0.7) Basophils # (Auto) 0.0 x10^3/uL (0.0-0.2) Sodium Level 143 mmol/L (136-145) Potassium Level 3.1 mmol/L (3.5-5.1) Chloride Level 106 mmol/L (98-107) Carbon Dioxide Level 27 mmol/L (21-32) Anion Gap 10 (6-14) Blood Urea Nitrogen 16 mg/dL (8-26) Creatinine 1.3 mg/dL (0.7-1.3) Estimated GFR (Cockcroft-Gault) 54.3 BUN/Creatinine Ratio 12 (6-20) Glucose Level 170 mg/dL (70-99) Calcium Level 8.5 mg/dL (8.5-10.1) Total Bilirubin 0.3 mg/dL (0.2-1.0) Aspartate Amino Transf (AST/SGOT) 14 U/L (15-37) Alanine Aminotransferase (ALT/SGPT) 18 U/L (16-63) Alkaline Phosphatase 90 U/L (46-116) Troponin I Quantitative 0.097 ng/mL (0.000-0.055) Total Protein 6.7 g/dL (6.4-8.2) Albumin 2.1 g/dL (3.4-5.0) Albumin/Globulin Ratio 0.5 (1.0-1.7) Triglycerides Level 162 mg/dL (0-150) Cholesterol Level 131 mg/dL (0-200) LDL Cholesterol, Calculated 75 mg/dL (0-100) VLDL Cholesterol, Calculated 32 mg/dL (0-40) Non-HDL Cholesterol Calculated 107 mg/dL (0-129) HDL Cholesterol 24 mg/dL (40-60) Cholesterol/HDL Ratio 5.5 Test 10/23/19 12:48 10/23/19 16:34 Glucose (Fingerstick) 66 mg/dL (70-99) 139 mg/dL (70-99) Images Images Report reviewed, images independently reviewed. [facility] [address] [place] [address] IMAGING REPORT Signed PATIENT: LACI HERRERA ACCOUNT: [id number] : 1945 LOCATION: ER AGE: 74 SEX: M EXAM STATUS: PRE ER ORD. PHYSICIAN: PAPITO SANCHEZ APRN REASON: LEFT FOOT PAIN, NON HEALING WOUND PROCEDURE: FOOT LEFT 3V Left foot 3 views. HISTORY: Foot pain, nonhealing wound 3 views were taken of the left foot. There is been a amputation just distal to the tarsal metatarsal joints. There is soft tissue swelling. There is mottling of the bone from osteoporosis. There are small erosions on the cuboid on the lateral view and the anterior talus on the lateral view. I do not have an old study for comparison. IMPRESSION: 1. Previous amputation. 2. Small erosions. 3. MRI could be of benefit to evaluate for osteomyelitis. Electronically signed by: Baldemar Garcia MD (10/22/2019 12:20 PM) [id number] DICTATED and SIGNED BY: BALDEMAR GARCIA MD DATE: 10/22/19 1220 Assessment/Plan Assessment/Plan I recommend wound care evaluation, offloading. His erythrocyte sedimentation rate is elevated but I will check C-reactive protein. Consider MRI with IV constrast. HALIE HUERTA MD Oct 23, 2019 17:56
[2019-10-23] MEDS: INSULIN GLARGINE SYRINGE. SQ SCH (21:00)
[2019-10-24] VITALS (7 sets, daily range): BP systolic 124–162; BP diastolic 41–80
[2019-10-24 05:43] LABS: HEMOGLOBIN A1C 7.4 % (4.8-5.6)
[2019-10-24] MEDS: INSULIN LISPRO 300 UNITS/3 ML VIAL. SQ SCH ×6 (08:00→17:00)
[2019-10-24] MEDS: BUDESONIDE 0.5 MG/2 ML NEBU. NEB SCH ×2 (08:00→20:09)
[2019-10-24] MEDS: PANTOPRAZOLE 40 MG TABLET.DR. PO SCH (08:05)
[2019-10-24] MEDS: ATORVASTATIN CALCIUM 20 MG TABLET PO SCH (08:05)
[2019-10-24] MEDS: ASPIRIN CHEWABLE 81 MG TABLET. PO SCH (08:05)
[2019-10-24] MEDS: LISINOPRIL 20 MG TABLET PO SCH (08:06)
[2019-10-24] MEDS: SENNOSIDES/DOCUSATE 8.6/50MG TABLET. PO SCH ×2 (08:06→22:20)
[2019-10-24] MEDS: amLODIPine BESYLATE 5 MG TABLET PO SCH (08:06)
[2019-10-24] MEDS: POTASSIUM CHLORIDE 10 MEQ TABLET.ER. PO SCH (08:07)
[2019-10-24] MEDS: CARVEDILOL 12.5 MG TABLET. PO SCH ×2 (08:07→17:35)
[2019-10-24] MEDS: MULTIVITAMIN with MINERAL TABLET. PO SCH (08:07)
[2019-10-24] MEDS: CHOLECALCIFEROL (VITAMIN D3) 1,000 UNIT TABLET PO SCH (08:07)
[2019-10-24] MEDS: IRON POLYSACCHARIDE COMPLEX 150 MG CAPSULE PO SCH ×2 (08:07→22:20)
[2019-10-24] MEDS: FUROSEMIDE 40 MG TABLET. PO SCH ×2 (08:08→14:33)
[2019-10-24] MEDS: NYSTATIN TOPICAL POWDER 15GM BOTTLE. TP SCH ×2 (09:00→22:21)
[2019-10-24] MEDS: FLUTICASONE 50MCG/NASAL SPRAY 16GM BOTTLE. NS SCH (09:00)
--- NOTE | 2019-10-24 11:24 | PDOC ---
PROGRESS NOTES Date of Service: DATE: 10/24/19 TIME: 11:24 Chief Complaint Chief Complaint VTE Prophylaxis Ordered VTE Prophylaxis Devices: No VTE Pharmacological Prophylaxi: Yes Assessment/Plan Assessment/Plan foot wounds, wound care eval, chest pain, elevated troponin , trend, check labs 50-69 percent stenosis in the right proximal internal carotid artery. weakness and debility, unable ot care for himself, poor skin care, rash to groin, nonspecific stranding change of the perinephric fat bilaterally greater on the left. No renal calculus is identified. 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 ORTHO CONSULT Cardiology consult guiac stools GI CONSULT RETIC, FE PANEL, FERRITIN vasc surgery consult 37 MIN PT EXAM, CHART REVIEW, > 50% OF TIME SPENT WITH EXAM, CHART REVIEW, PT CARE COORDINATION History of Present Illness History of Present Illness Identification/Chief Complaint Chief Complaint weakness, Source Source: Chart review, Patient History of Present Illness History of Present Illness Mr. Herrera is a 74 year old male admti with mult problems. poor self care. Left arm swelling for a week. 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 he has a rash on his groin from sitting in his own urine at home thurman placed here and he complains of burning pain from the cath, he says he has $1400 prosthetic shoes for his amp foot , but doesnt know where they are, possibly here. . Past Medical History Cardiovascular: HTN, Hyperlipidemia, Other Pulmonary: Other Heme/Onc: Anemia NOS Psych: Depression Musculoskeletal: Other Renal/: Chronic renal insuff, Benign prostatic enlarg. Endocrine: Diabetes Past Surgical History Past Surgical History: Other Family History Family History: Diabetes, Hypertension Social History Smoke: # pack years ALCOHOL: none Drugs: None Vitals Vitals Vital Signs Date Time Temp Pulse Resp B/P (MAP) Pulse Ox O2 Delivery O2 Flow Rate FiO2 10/24/19 11:12 97.2 76 20 155/72 (99) 96 Room Air 97.2 Physical Exam Physical Exam Physical Exam General: Alert, Oriented X3, Cooperative HEENT: Atraumatic Lungs: Clear to auscultation Abdomen: Soft Extremities: Other (arm edema, no LE edema) Skin: Other (left toe 1X1 ulcer, left foot stump 3x3 lesions, rash to groin with excoriations, mult small lesions are arms that he blames on his cat, but looks small and circular, ) Neuro: Normal speech, Sensation intact Psych/Mental Status: Mental status NL, Mood NL General: Alert, Cooperative Heart: Regular rate Lungs: Clear Abdomen: Soft Extremities: Other (The transmetatarsal amputation has superficial ulceration. There is minimal swelling, I do not see evidence of osteomyelitis clinically.) Skin: Other (left toe 1X1 ulcer, left foot stump 3x3 lesions, rash to groin with excoriations, mult small lesions are arms that he blames on his cat, but looks small and circular, ) Labs LABS APPROVED REPORT Patient Location: IN-PATIENT Indications wounds VELOCITY AND DOPPLER WAVEFORM ANALYSIS RIGHT cm/sec Waveform Severity LEFT cm/sec Waveform Severity dCFA 128.0 Triphasic dCFA 172.0 Triphasic Fem Art Prox. 173.0 Triphasic Fem Art Prox. 58.0 Triphasic Fem Art Mid. 378.0 Triphasic Fem Art Mid. 163.0 Triphasic Fem Art Dist. 107.0 Triphasic Fem Art Dist. 140.0 Triphasic Pop Art(Fossa) 124.0 Triphasic Pop Art(AK) 76.0 Triphasic YOUTH CORRECTIONS OFFICER Prox. 47.0 Triphasic YOUTH CORRECTIONS OFFICER Prox. 101.0 Triphasic YOUTH CORRECTIONS OFFICER Dist. 121.0 Triphasic YOUTH CORRECTIONS OFFICER Dist. 89.0 Triphasic CORINNA Prox. CORINNA Prox. 109.0 Triphasic DPA 55 Monophasic DPA 49 Triphasic Findings Grayscale images of the right and left lower extremity arterial vessels demonstrate moderate diffuse plaque. The bilateral profunda femoris were not well visualized. Bilateral peroneal arteries were not well visualized. On the right side there is likely a greater than 50% stenosis involving the mid SFA. There is one-vessel runoff below the knee and the anterior tibial artery is not visualized. On the left side there is no significant focal obstruction identified with mostly triphasic and biphasic waveforms throughout the left leg. Critical Notification Critical Value: No <Conclusion> 1. 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 No significant left-sided arterial disease with two-vessel runoff Signed by : Halie Easton, Electronically Approved : 10/24/2019 11:32:04 DICTATED and SIGNED BY: HALIE EASTON MD DATE: 10/24/19 1018 Left foot 3 views. HISTORY: Foot pain, nonhealing wound 3 views were taken of the left foot. There is been a amputation just distal to the tarsal metatarsal joints. There is soft tissue swelling. There is mottling of the bone from osteoporosis. There are small erosions on the cuboid on the lateral view and the anterior talus on the lateral view. I do not have an old study for comparison. IMPRESSION: 1. Previous amputation. 2. Small erosions. 3. MRI could be of benefit to evaluate for osteomyelitis. Electronically signed by: Baldemar Garcia MD (10/22/2019 12:20 PM) [id number] DICTATED and SIGNED BY: BALDEMAR GARCIA MD CT ABD PELV W/ IV CONTRST ONLY Indication: Constipation, abdominal pain, PUI Technique: Postcontrast CT imaging was performed of the abdomen pelvis, multiplanar reconstruction images submitted. No oral contrast was given. One or more of the following individualized dose reduction techniques were utilized for this examination: 1. Automated exposure control 2. Adjustment of the mA and/or kV according to patient size 3. Use of iterative reconstruction technique. Comparison: None Findings: There is motion degradation. There is no significant abnormality of the limited visualized lung bases. There is coronary calcification. There is cholelithiasis. There is mild fullness of the left adrenal gland without discrete nodularity, no right adrenal nodule. No significant focal abnormality is identified of the liver or partially fat replaced pancreas. There is small splenic granuloma. Both kidneys enhance without hydronephrosis. There is nonspecific stranding change of the perinephric fat bilaterally greater on the left. No renal calculus is identified. There is somewhat lobulated contour of the bilateral kidneys, also exophytic focus of density of the inferior right kidney about 1 cm with density measurements similar to adjacent renal parenchyma. There is also small exophytic focus of density of the inferior left kidney about 0.7 cm, similar density measurements compared with adjacent parenchyma. Evaluation of bowel is somewhat limited without oral contrast. Bowel is not dilated. There is no free fluid or free air. There is mild retained stool in the colon. Appendix is not clearly identified if still present, no significant pericecal inflammatory type change. There is mild scattered plaque of the abdominal aorta, also of the proximal superior mesenteric artery, and bilateral iliac arteries. There is multilevel thoracolumbar spondylosis. There is multilevel lumbar facet degenerative change. There is degree of lateral recess stenosis bilaterally at L4-5 and on the right at L3-4 in part from facet degenerative change. There is lumbar neural foramina compromise, more significant narrowing the right L5-S1. There is nonspecific mild prominence of urinary bladder [place]. There is a small 0.6 cm nonspecific lytic lesion of the right T12 vertebral body. There is lytic lesion of the superior acetabulum although possibly related to subchondral cyst. There is osteoarthritic change of the hips bilaterally. IMPRESSION: 1. There is cholelithiasis. 2. Appendix is not confidently identified although no significant pericecal inflammatory type change. There is no evidence of bowel obstruction. There is mild retained stool in the colon. 3. There is nonspecific strandy change of the perinephric fat bilaterally. There is no hydronephrosis. There are some small foci of exophytic density of the bilateral kidneys potentially due to hemorrhagic or complex cysts although small solid lesions not excluded. Nonemergent multi phase CT evaluation versus 6 month follow-up to assess stability is recommended. 4. There is mild prominence of the urinary bladder [place], could be due to incomplete distention unless suspicion for cystitis. 5. There is small nonspecific lytic lesion of the right T12 vertebral body. Electronically signed by: Melina Patel MD (10/22/2019 2:34 PM) [id number] DICTATED and SIGNED BY: MELINA PATEL MD DATE: 10/22/19 1434 Laboratory Tests Test 10/23/19 12:48 10/23/19 16:34 10/23/19 21:07 10/24/19 04:00 Glucose (Fingerstick) 66 mg/dL (70-99) 139 mg/dL (70-99) 89 mg/dL (70-99) C-Reactive Protein, Quantitative 104.5 mg/L (0-3.3) Test 10/24/19 07:53 10/24/19 10:32 Glucose (Fingerstick) 140 mg/dL (70-99) 259 mg/dL (70-99) Assessment and Plan Assessmemt and Plan Problems Medical Problems: (1) Elevated troponin Status: Acute (2) Wound of foot Status: Acute Comment Review of Relevant I have reviewed the following items minnie (where applicable) has been applied. Labs Laboratory Tests Test 10/22/19 12:30 10/22/19 13:30 10/22/19 14:30 10/22/19 20:44 White Blood Count 9.7 x10^3/uL (4.0-11.0) Red Blood Count 2.78 x10^6/uL (4.30-5.70) Hemoglobin 8.0 g/dL (13.0-17.5) Hematocrit 23.3 % (39.0-53.0) Mean Corpuscular Volume 84 fL (79-100) Mean Corpuscular Hemoglobin 29 pg (25-35) Mean Corpuscular Hemoglobin Concent 35 g/dL (31-37) Red Cell Distribution Width 15.5 % (11.5-14.5) Platelet Count 284 x10^3/uL (140-400) Neutrophils (%) (Auto) 81 % (31-73) Lymphocytes (%) (Auto) 8 % (24-48) Monocytes (%) (Auto) 8 % (0-9) Eosinophils (%) (Auto) 2 % (0-3) Basophils (%) (Auto) 1 % (0-3) Neutrophils # (Auto) 7.8 x10^3/uL (1.8-7.7) Lymphocytes # (Auto) 0.8 x10^3/uL (1.0-4.8) Monocytes # (Auto) 0.8 x10^3/uL (0.0-1.1) Eosinophils # (Auto) 0.2 x10^3/uL (0.0-0.7) Basophils # (Auto) 0.1 x10^3/uL (0.0-0.2) Prothrombin Time 14.3 SEC (11.7-14.0) Prothromb Time International Ratio 1.2 (0.8-1.1) Sodium Level 139 mmol/L (136-145) Potassium Level 3.5 mmol/L (3.5-5.1) Chloride Level 104 mmol/L (98-107) Carbon Dioxide Level 26 mmol/L (21-32) Anion Gap 9 (6-14) Blood Urea Nitrogen 23 mg/dL (8-26) Creatinine 1.4 mg/dL (0.7-1.3) Estimated GFR (Cockcroft-Gault) 49.8 BUN/Creatinine Ratio 16 (6-20) Glucose Level 266 mg/dL (70-99) Lactic Acid Level 1.1 mmol/L (0.4-2.0) Calcium Level 8.7 mg/dL (8.5-10.1) Total Bilirubin 0.3 mg/dL (0.2-1.0) Aspartate Amino Transf (AST/SGOT) 14 U/L (15-37) Alanine Aminotransferase (ALT/SGPT) 20 U/L (16-63) Alkaline Phosphatase 95 U/L (46-116) Troponin I Quantitative 0.133 ng/mL (0.000-0.055) Total Protein 7.0 g/dL (6.4-8.2) Albumin 2.3 g/dL (3.4-5.0) Albumin/Globulin Ratio 0.5 (1.0-1.7) Lipase 70 U/L (73-393) Urine Collection Type Unknown Urine Color Yellow Urine Clarity Clear Urine pH 5.0 (<5.0-8.0) Urine Specific [place] 1.010 (1.000-1.030) Urine Protein 100 mg/dL (NEG-TRACE) Urine Glucose (UA) 250 mg/dL (NEG) Urine Ketones (Stick) Negative mg/dL (NEG) Urine Blood Trace (NEG) Urine Nitrite Negative (NEG) Urine Bilirubin Negative (NEG) Urine Urobilinogen Dipstick 0.2 mg/dL (0.2 mg/dL) Urine Leukocyte Esterase Negative (NEG) Urine RBC 3-5 /HPF (0-2) Urine WBC Occ /HPF (0-4) Urine Squamous Epithelial Cells Occ /LPF Urine Bacteria 0 /HPF (0-FEW) Urine Hyaline Casts Few /HPF Coronavirus (PCR) Not detected (Not Detected) Glucose (Fingerstick) 238 mg/dL (70-99) Test 10/23/19 03:30 10/23/19 07:30 10/23/19 10:59 8/15/20 12:48 White Blood Count 9.3 x10^3/uL (4.0-11.0) Red Blood Count 2.90 x10^6/uL (4.30-5.70) Hemoglobin 8.0 g/dL (13.0-17.5) Hematocrit 24.4 % (39.0-53.0) Mean Corpuscular Volume 84 fL (79-100) Mean Corpuscular Hemoglobin 28 pg (25-35) Mean Corpuscular Hemoglobin Concent 33 g/dL (31-37) Red Cell Distribution Width 15.7 % (11.5-14.5) Platelet Count 275 x10^3/uL (140-400) Neutrophils (%) (Auto) 72 % (31-73) Lymphocytes (%) (Auto) 14 % (24-48) Monocytes (%) (Auto) 10 % (0-9) Eosinophils (%) (Auto) 3 % (0-3) Basophils (%) (Auto) 1 % (0-3) Neutrophils # (Auto) 6.7 x10^3/uL (1.8-7.7) Lymphocytes # (Auto) 1.3 x10^3/uL (1.0-4.8) Monocytes # (Auto) 0.9 x10^3/uL (0.0-1.1) Eosinophils # (Auto) 0.3 x10^3/uL (0.0-0.7) Basophils # (Auto) 0.0 x10^3/uL (0.0-0.2) Sodium Level 143 mmol/L (136-145) Potassium Level 3.1 mmol/L (3.5-5.1) Chloride Level 106 mmol/L (98-107) Carbon Dioxide Level 27 mmol/L (21-32) Anion Gap 10 (6-14) Blood Urea Nitrogen 16 mg/dL (8-26) Creatinine 1.3 mg/dL (0.7-1.3) Estimated GFR (Cockcroft-Gault) 54.3 BUN/Creatinine Ratio 12 (6-20) Glucose Level 170 mg/dL (70-99) Hemoglobin A1c 7.4 % (4.8-5.6) Calcium Level 8.5 mg/dL (8.5-10.1) Total Bilirubin 0.3 mg/dL (0.2-1.0) Aspartate Amino Transf (AST/SGOT) 14 U/L (15-37) Alanine Aminotransferase (ALT/SGPT) 18 U/L (16-63) Alkaline Phosphatase 90 U/L (46-116) Troponin I Quantitative 0.097 ng/mL (0.000-0.055) Total Protein 6.7 g/dL (6.4-8.2) Albumin 2.1 g/dL (3.4-5.0) Albumin/Globulin Ratio 0.5 (1.0-1.7) Triglycerides Level 162 mg/dL (0-150) Cholesterol Level 131 mg/dL (0-200) LDL Cholesterol, Calculated 75 mg/dL (0-100) VLDL Cholesterol, Calculated 32 mg/dL (0-40) Non-HDL Cholesterol Calculated 107 mg/dL (0-129) HDL Cholesterol 24 mg/dL (40-60) Cholesterol/HDL Ratio 5.5 Glucose (Fingerstick) 165 mg/dL (70-99) 68 mg/dL (70-99) 66 mg/dL (70-99) Test 10/23/19 16:34 10/23/19 21:07 10/24/19 04:00 10/24/19 07:53 Glucose (Fingerstick) 139 mg/dL (70-99) 89 mg/dL (70-99) 140 mg/dL (70-99) C-Reactive Protein, Quantitative 104.5 mg/L (0-3.3) Test 10/24/19 10:32 Glucose (Fingerstick) 259 mg/dL (70-99) Laboratory Tests Test 10/23/19 12:48 10/23/19 16:34 10/23/19 21:07 10/24/19 04:00 Glucose (Fingerstick) 66 mg/dL (70-99) 139 mg/dL (70-99) 89 mg/dL (70-99) C-Reactive Protein, Quantitative 104.5 mg/L (0-3.3) Test 10/24/19 07:53 10/24/19 10:32 Glucose (Fingerstick) 140 mg/dL (70-99) 259 mg/dL (70-99) Medications Current Medications Sodium Chloride 500 ml @ 500 mls/hr 1X ONCE IV Last administered on 10/22/19at 13:12; Start 10/22/19 at 13:00; Stop 10/22/19 at 13:59; Status DC Iohexol (Omnipaque 300 Mg/ml) 60 ml 1X ONCE IV Last administered on 10/22/19at 13:58; Start 10/22/19 at 13:45; Stop 10/22/19 at 13:47; Status DC Info (CONTRAST GIVEN -- Rx MONITORING) 1 each PRN DAILY PRN MC SEE COMMENTS; Start 10/22/19 at 14:00; Stop 10/24/19 at 13:59 Ondansetron HCl (Zofran) 4 mg PRN Q8HRS PRN IV NAUSEA/VOMITING; Start 10/22/19 at 15:30; Stop 10/23/19 at 15:29; Status DC Fentanyl Citrate (Fentanyl 2ml Vial) 50 mcg PRN Q1HR PRN IV PAIN Last administered on 10/22/19at 20:17; Start 10/22/19 at 15:30; Stop 10/23/19 at 15:29; Status DC Lorazepam (Ativan Inj) 1 mg PRN Q4HRS PRN IVP ANXIETY / AGITATION Last admini stered on 10/22/19at 19:32; Start 10/22/19 at 17:45 Insulin Human Lispro (HumaLOG) 0-9 UNITS TIDWMEALS SQ Last administered on at 08:11; Start 10/23/19 at 08:00 Dextrose (Dextrose 50%-Water Syringe) 12.5 gm PRN Q15MIN PRN IV SEE COMMENTS; Start 10/22/19 at 17:45 Phenazopyridine HCl (Pyridium) 200 mg 1X ONCE PO Last administered on 10/22/19at 20:59; Start 10/22/19 at 19:45; Stop 10/22/19 at 19:48; Status DC Phenazopyridine HCl (Pyridium) 200 mg PRN TID PRN PO URINARY PAIN; Start 10/22/19 at 19:45 Morphine Sulfate (Morphine Sulfate) 4 mg PRN Q2HR PRN IV PAIN Last administered on 10/22/19at 22:11; Start 10/22/19 at 19:45 Cyclobenzaprine HCl (Flexeril) 10 mg PRN Q6HRS PRN PO MUSCLE SPASMS; Start 10/22/19 at 20:00 Albuterol Sulfate (Ventolin Neb Soln) 2.5 mg PRN Q4HRS PRN NEB SHORTNESS OF BREATH; Start 10/22/19 at 20:00 Amlodipine Besylate (Norvasc) 5 mg DAILY PO Last administered on 10/24/19at 08:06; Start 10/23/19 at 09:00 Aspirin (Aspirin Chewable) 162 mg DAILY PO Last administered on 10/24/19 08 :05; Start 10/23/19 at 09:00 Atorvastatin Calcium (Lipitor) 20 mg DAILY PO Last administered on 10/24/19 08:05; Start 10/23/19 at 09:00 Budesonide (Pulmicort) 0.5 mg RTBID NEB ; Start 10/22/19 at 20:00 Vitamin D (Vitamin D3) 2,000 unit DAILY PO Last administered on 10/24/19 08:07; Start 10/23/19 at 09:00 Furosemide (Lasix) 40 mg BID92 PO Last administered on 10/24/19at 08:08; Start 10/23/19 at 09:00 Guaifenesin (Robitussin Dm) 10 ml PRN Q6HRS PRN PO COUGH, 1st CHOICE; Start 10/22/19 at 20:00 Hydralazine HCl (Apresoline) 50 mg TID PO Last administered on 10/24/19at 08:05; Start 10/22/19 at 21:00 Polysaccharide Iron Complex (Niferex 150) 150 mg BID PO Last administered on 10/24/19at 08:07; Start 10/22/19 at 21:00 Lisinopril (Prinivil) 40 mg DAILY PO Last administered on 10/24/19at 08:06; Start 10/23/19 at 09:00 Multivitamins (Thera M Plus) 1 tab DAILY PO Last administered on 10/24/19at 08:07; Start 10/23/19 at 09:00 Nystatin (Nystop) 1 ritu DAILY TP ; Start 10/23/19 at 09:00; Status Cancel Oxycodone HCl (Roxicodone) 10 mg PRN Q4HRS PRN PO SEVERE PAIN 7-10; Start 10/22/19 at 20:00 Pantoprazole Sodium (Protonix) 40 mg DAILY PO Last administered on 10/24/19 08:05; Start 10/23/19 at 09:00 Potassium Chloride (Klor-Con) 30 meq DAILYWBKFT PO Last administered on 10/24/19at 08:07; Start 10/23/19 at 08:00 Senna/Docusate Sodium (Senna Plus) 1 tab BID PO Last administered on 10/24/19 08:06; Start 10/22/19 at 21:00 Trimethoprim/ Sulfamethoxazole (Bactrim Ds) 1 tab BID PO ; Start 10/22/19 at 21:00; Stop 10/22/19 at 20:01; Status DC Carvedilol (Coreg) 25 mg BIDWMEALS PO Last administered on 10/24/19 08:07; Start 10/23/19 at 08:00 Fluticasone Propionate (Flonase) 2 spray DAILY NS Last administered on 10/23/19at 08:12; Start 10/23/19 at 09:00 Insulin Human Lispro (HumaLOG) 30 units TIDWMEALS SQ Last administered on 10/23/19at 08:11; Start 10/23/19 at 08:00; Stop 10/23/19 at 12:59; Status DC Insulin Glargine (Lantus Syringe) 45 unit QHS SQ Last administered on 10/22/19at 21:00; Start 10/22/19 at 21:00 Nystatin (Nystop) 1 ritu BID TP Last administered on 10/23/19at 21:00; Start 10/22/19 at 21:00 Enoxaparin Sodium (Lovenox Per Pharmacy Prophylaxis Dosing) 1 each PRN DAILY PRN MC SEE COMMENTS; Start 10/22/19 at 20:00 Enoxaparin Sodium (Lovenox 60mg Syringe) 60 mg Q12HR SQ Last administered on 10/24/19 08:08; Start 10/22/19 at 21:00 Insulin Human Lispro (HumaLOG) 18 units TIDWMEALS SQ Last administered on 10/24/19at 08:09; Start 10/23/19 at 17:00 Active Scripts Active Bactrim Ds Tablet (Sulfamethoxazole/Trimethoprim) 1 Each Tablet 1 Tab PO BID Klor-Con 10 (Potassium Chloride) 10 Meq Tablet.er 30 Meq PO DAILYWBKFT 7 Days Amlodipine Besylate 5 Mg Tablet 5 Mg PO DAILY Hydralazine Hcl 25 Mg Tablet 50 Mg PO TID Thera-M Tablet (Multivits,Ca,Minerals/Iron/Fa) 1 Each Tablet 1 Tab PO DAILY MDD 1 Budesonide 0.5 Mg/2 Ml Ampul.neb 0.5 Mg NEB RTBID MDD 1 Guaifenesin Dm Syrup (Guaifenesin/Dextromethorphan) 5 Ml Syrup 10 Ml PO PRN Q6HRS PRN MDD 1 Proair Hfa (Albuterol Sulfate) 8.5 Gm Hfa.aer.ad 2.5 Mg NEB PRN Q4HRS PRN MDD 1 Poly-Iron (Iron Polysaccharides Complex) 150 Mg Capsule 150 Mg PO BID MDD 1 Oxycodone Hcl Immed.release (Oxycodone Hcl) 5 Mg Tablet 10 Mg PO PRN Q4HRS PRN MDD 1 Reported Novolog Flexpen (Insulin Aspart) 100 Unit/1 Ml Insuln.pen 30 SQ TIDWMEALS Aspirin 325 Mg Tablet 0.5 Tab PO DAILY Senna-S Tablet (Sennosides/Docusate Sodium) 1 Each Tablet 1 Each PO BID Nyamyc (Nystatin) 15 Gm Powder 15 Gm TP DAILY Culturelle (Lactobacillus Rhamnosus Gg) 1 Each Capsule 1 Each PO BIDWMEALS Lantus Solostar (Insulin Glargine,Hum.rec.anlog) 100 Unit/1 Ml Insuln.pen 45 Unit SQ QHS Cvs Glucosamine-Chondr Tablet (Glucosamine Hcl/Chondr [place] A Na) 1 Each Tablet 2 Each PO DAILY Flonase Allergy Relief (Fluticasone Propionate) 9.9 Ml [place].susp 2 Sprays NS DAILY Diphenhydramine Hcl 50 Mg Capsule 25 Mg PO Q6HRS PRN Vitamin D3 (Cholecalciferol (Vitamin D3)) 1,000 Unit Tablet 2,000 Unit PO DAILY Atorvastatin Calcium 20 Mg Tablet DAILY Furosemide 20 Mg Tablet 40 Mg BID Lisinopril 40 Mg Tablet 40 DAILY Carvedilol 25 Mg Tablet 25 BID Pantoprazole Sodium (Pantoprazole Sodium) 40 Mg Tablet.dr DAILY Vitals/I & O Vital Sign - Last 24 Hours 10/23/19 10/23/19 10/23/19 10/23/19 14:33 15:32 17:18 19:55 Temp 99.3 99.7 99.3 99.7 Pulse 75 75 75 76 Resp 18 18 B/P (MAP) 171/75 128/59 (82) 128/59 145/56 (85) Pulse Ox 95 O2 Delivery Room Air Room Air 10/23/19 10/23/19 10/23/19 10/24/19 20:00 21:28 23:55 03:36 Temp 100.0 98.5 100.0 98.5 Pulse 76 77 86 Resp 16 18 B/P (MAP) 145/56 141/64 (89) 162/69 (100) Pulse Ox 100 O2 Delivery Room Air Room Air Room Air 10/24/19 10/24/19 10/24/19 10/24/19 07:20 08:00 08:05 08:06 Temp 98.9 98.9 Pulse 82 86 86 Resp 18 B/P (MAP) 144/76 (98) 144/65 144/65 Pulse Ox 98 O2 Delivery Room Air Room Air 10/24/19 10/24/19 10/24/19 08:06 08:07 11:12 Temp 97.2 97.2 Pulse 86 86 76 Resp 20 B/P (MAP) 144/65 144/65 155/72 (99) Pulse Ox 96 O2 Delivery Room Air Intake and Output 10/23/19 10/23/19 10/24/19 15:00 23:00 07:00 Intake Total 360 ml 50 ml Balance 360 ml 50 ml Justicifation of Admission Dx: Justifications for Admission: Justification of Admission Dx: Yes AJAY GURROLA MD Oct 24, 2019 11:24
--- NOTE | 2019-10-24 11:32 | RAD ---
MR#: [id number] Date of Study: 10/24/2019 Ordering Physician: HALIE RUSSELL, Referring Physician: HALIE RUSSELL, Tech: Salvador Sanchez MBA, RDMS, RVT, RDCS, RTR APPROVED REPORT Patient Location: IN-PATIENT Indications wounds VELOCITY AND DOPPLER WAVEFORM ANALYSIS RIGHT cm/secWaveformSeverity LEFT cm/secWaveform Severity dCFA 128.0TriphasicdCFA 172.0Triphasic Fem Art Prox. 173.0TriphasicFem Art Prox. 58.0Triphasic Fem Art Mid. 378.0TriphasicFem Art Mid. 163.0Triphasic Fem Art Dist. 107.0TriphasicFem Art Dist. 140.0Triphasic Pop Art(Fossa) 124.0TriphasicPop Art(AK) 76.0Triphasic QUALITY SPECIALIST Prox. 47.0TriphasicPTA Prox. 101.0Triphasic QUALITY SPECIALIST Dist. 121.0TriphasicPTA Dist. 89.0Triphasic CORINNA Prox. CORINNA Prox. 109.0Triphasic DPA 55MonophasicDPA 49Triphasic Findings Grayscale images of the right and left lower extremity arterial vessels demonstrate moderate diffuse plaque. The bilateral profunda femoris were not well visualized. Bilateral peroneal arteries were n ot well visualized. On the right side there is likely a greater than 50% stenosis involving the mid SFA. There is one-ve ssel runoff below the knee and the anterior tibial artery is not visualized. On the left side there is no significant focal obstruction identified with mostly triphasic and bipha sic waveforms throughout the left leg. Critical Notification Critical Value: No <Conclusion> 1. 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 No significant left-sided arterial disease with two-vessel runoff Signed by : Halie Russell, Electronically Approved : 10/24/2019 11:32:04
--- NOTE | 2019-10-24 12:20 | PDOC ---
CARDIOLOGY PROGRESS NOTE SUBJECTIVE: Patient is sleepy but denies any acute issues OBJECTIVE: Vital Signs/I&O: Vital Signs Date Time Temp Pulse Resp B/P (MAP) Pulse Ox O2 Delivery O2 Flow Rate FiO2 10/24/19 11:12 97.2 76 20 155/72 (99) 96 Room Air 97.2 I & O 10/23/19 10/23/19 10/24/19 14:59 22:59 06:59 Intake Total 360 ml 50 ml Balance 360 ml 50 ml Objective: Bilateral lower extremity arterial pulses are nonpalpable He has multiple scabbed nonhealing wounds on his legs. Both feet are warm to touch CURRENT MEDICATIONS: Current Medications Medications (Trade) Dose Ordered Sig/Beatrice Route PRN Reason Start Time Stop Time Status Last Admin Dose Admin Insulin Human Lispro (HumaLOG) 18 units TIDWMEALS SQ 10/23/19 17:00 10/24/19 12:04 DIAGNOSTIC TESTING: Duplex lower extremity arterial study reveals probable 50% or greater stenosis involving the right leg. Labs: Laboratory Tests Test 10/23/19 12:48 10/23/19 16:34 10/23/19 21:07 10/24/19 04:00 Glucose (Fingerstick) 66 mg/dL (70-99) L 139 mg/dL (70-99) H 89 mg/dL (70-99) C-Reactive Protein, Quantitative 104.5 mg/L (0-3.3) H Test 10/24/19 07:53 10/24/19 10:32 Glucose (Fingerstick) 140 mg/dL (70-99) H 259 mg/dL (70-99) H ASSESSMENT: 1. Moderate PAD 2. Chronic nonhealing wounds 3. Multiple cardiovascular comorbidities including hypertension and diastolic heart failure PLAN: 1. I feel that he does not have any critical limb ischemia, given his multiple comorbidities no acute indication for inpatient intervention for his arterial insufficiency. 2. Would continue aggressive wound care and if the wound care team or the orthopedic service feels that he needs intervention for wound healing we would be happy to consider angiography and further intervention as necessary. Otherwise continue current medical therapy and supportive care for now. 3. We will plan for an echocardiogram prior to discharge. Justicifation of Admission Dx: Justifications for Admission: Justification of Admission Dx: Yes HALIE RUSSELL MD Oct 24, 2019 12:20
[2019-10-24 12:53] LABS: CALCIUM 8.3 mg/dL (8.5-10.1); CREATININE 1.5 mg/dL (0.7-1.3)
--- NOTE | 2019-10-24 13:08 | PDOC ---
Infectious Disease Note Vital Sign Vital Signs Vital Signs Date Time Temp Pulse Resp B/P (MAP) Pulse Ox O2 Delivery O2 Flow Rate FiO2 10/24/19 11:12 97.2 76 20 155/72 (99) 96 Room Air 97.2 Physical Exam PHYSICAL EXAM Physical Exam General: Alert, Oriented X3, Cooperative HEENT: Atraumatic Lungs: Clear to auscultation Abdomen: Soft Extremities: Other (arm edema, no LE edema) Skin: Other (left toe 1X1 ulcer, left foot stump 3x3 lesions, rash to groin with excoriations, mult small lesions are arms that he blames on his cat, but looks small and circular, ) Neuro: Normal speech, Sensation intact Psych/Mental Status: Mental status NL, Mood NL Labs Lab Laboratory Tests Test 10/23/19 16:34 10/23/19 21:07 10/24/19 04:00 10/24/19 07:53 Glucose (Fingerstick) 139 mg/dL (70-99) 89 mg/dL (70-99) 140 mg/dL (70-99) C-Reactive Protein, Quantitative 104.5 mg/L (0-3.3) Test 10/24/19 10:32 10/24/19 12:00 Glucose (Fingerstick) 259 mg/dL (70-99) Red Blood Count 3.13 x10^6/uL (4.30-5.70) Absolute Reticulocyte Count 0.042 x10^6/uL (0.020-0.120) Percent Reticulocyte Count 1.3 % (0.5-2.3) Immature Reticulocyte Fraction 0.53 (0.20-0.60) Objective Assessment Fever and chills Arthralgia wrist, Cat scratches on the left upper arm Chronic nonhealing wounds lower extremities, no clinical evidence of infection Antibiotic allergies to Zosyn and cefuroxime PVD Diabetes with peripheral neuropathy CKD Morbid obesity h/o PCN allergy rash, has tolerated ertapenem Hypertension Plan Plan of Care Fever etiology unclear superficial abrasions on both foot no evidence of OM Cat scratches on LUE, no gross evidence of cellulitis or abscess on todays exam DM with neuropathy Will try unasyn,give it slowly and observe,redose if he tolerates it well Benadryl prn Monitor closely Stop if any reactions D/W RN Full consult to follow Thank you Patient seen and examined. Labs, micro, and chart reviewed. I coformulated above a/p with [employer]. CARMEN LAW APRN Oct 24, 2019 13:07 LEONARDO JEAN MD Oct 24, 2019 16:34
[2019-10-24] MEDS ORDERED: PERFLUTREN PROTEIN-A MICROSPHR 0.22 MG/ML 3 ML VIAL. IV ONE (13:11)
--- NOTE | 2019-10-24 13:29 | PDOC2 ---
CONSULT Date of Consult Date of Consult DATE: 10/24/19 TIME: 13:24 Reason for Consult Reason for Consult: Anemia History of Present Illness Reason for Visit: This is a 74-year-old gentleman who was admitted with numerous medical complaints including diabetic neuropathy, multiple wounds, urinary incontinence. During evaluation he was found to have a hemoglobin of 8.0. The indices were normocytic. He denies any rectal bleeding or melena. He describes a regular bowel pattern without abdominal pain, nausea or vomiting. Last October he was admitted with 1 of his numerous admissions and was also slightly anemic with a hemoglobin of 9.4. He was on meloxicam at that time and was evaluated with endoscopy that was unrevealing. He also has previously had colonoscopy in the last several years at that was reportedly negative although I do not have those records. He was told to take iron which he has patricia en intermittently but does not believe it is helping him very much. However it does not upset his stomach or cause constipation as far he knows. Past Medical History Cardiovascular: HTN, Hyperlipidemia, Other Pulmonary: Other Heme/Onc: Anemia NOS Psych: Depression Musculoskeletal: Other Renal/: Chronic renal insuff, Benign prostatic enlarg. Endocrine: Diabetes Past Surgical History Past Surgical History: Other Family History Family History: Diabetes, Hypertension Social History # pack years ALCOHOL: none Drugs: None Lives: with Family Current Problem List Problem List Problems Medical Problems: (1) Elevated troponin Status: Acute (2) Wound of foot Status: Acute Current Medications Current Medications Current Medications Sodium Chloride 500 ml @ 500 mls/hr 1X ONCE IV Last administered on 10/22/19at 13:12; Start 10/22/19 at 13:00; Stop 10/22/19 at 13:59; Status DC Iohexol (Omnipaque 300 Mg/ml) 60 ml 1X ONCE IV Last administered on 10/22/19at 13:58; Start 10/22/19 at 13:45; Stop 10/22/19 at 13:47; Status DC Info (CONTRAST GIVEN -- Rx MONITORING) 1 each PRN DAILY PRN MC SEE COMMENTS; Start 10/22/19 at 14:00; Stop 10/24/19 at 13:59 Ondansetron HCl (Zofran) 4 mg PRN Q8HRS PRN IV NAUSEA/VOMITING; Start 10/22/19 at 15:30; Stop 10/23/19 at 15:29; Status DC Fentanyl Citrate (Fentanyl 2ml Vial) 50 mcg PRN Q1HR PRN IV PAIN Last administered on 10/22/19at 20:17; Start 10/22/19 at 15:30; Stop 10/23/19 at 15:29; Status DC Lorazepam (Ativan Inj) 1 mg PRN Q4HRS PRN IVP ANXIETY / AGITATION Last administered on 10/22/19at 19:32; Start 10/22/19 at 17:45 Insulin Human Lispro (HumaLOG) 0-9 UNITS TIDWMEALS SQ Last administered on 10/23at 12:03; Start 10/23/19 at 08:00 Dextrose (Dextrose 50%-Water Syringe) 12.5 gm PRN Q15MIN PRN IV SEE COMMENTS; Start 10/22/19 at 17:45 Phenazopyridine HCl (Pyridium) 200 mg 1X ONCE PO Last administered on 10/22/19at 20:59; Start 10/22/19 at 19:45; Stop 10/22/19 at 19:48; Status DC Phenazopyridine HCl (Pyridium) 200 mg PRN TID PRN PO URINARY PAIN; Start 10/22/19 at 19:45 Morphine Sulfate (Morphine Sulfate) 4 mg PRN Q2HR PRN IV PAIN Last administered on 10/22/19at 22:11; Start 10/22/19 at 19:45 Cyclobenzaprine HCl (Flexeril) 10 mg PRN Q6HRS PRN PO MUSCLE SPASMS; Start 10/22/19 at 20:00 Albuterol Sulfate (Ventolin Neb Soln) 2.5 mg PRN Q4HRS PRN NEB SHORTNESS OF BREATH; Start 10/22/19 at 20:00 Amlodipine Besylate (Norvasc) 5 mg DAILY PO Last administered on 10/24/19at 08:06; Start 10/23/19 at 09:00 Aspirin (Aspirin Chewable) 162 mg DAILY PO Last administered on 10/24/19at 08:05 ; Start 10/23/19 at 09:00 Atorvastatin Calcium (Lipitor) 20 mg DAILY PO Last administered on 10/24/19at 08:05; Start 10/23/19 at 09:00 Budesonide (Pulmicort) 0.5 mg RTBID NEB ; Start 10/22/19 at 20:00 Vitamin D (Vitamin D3) 2,000 unit DAILY PO Last administered on 10/24/19 08:07; Start 10/23/19 at 09:00 Furosemide (Lasix) 40 mg BID92 PO Last administered on 10/24/19at 08:08; Start 10/23/19 at 09:00 Guaifenesin (Robitussin Dm) 10 ml PRN Q6HRS PRN PO COUGH, 1st CHOICE; Start 10/22/19 at 20:00 Hydralazine HCl (Apresoline) 50 mg TID PO Last administered on 10/24/19 08:05; Start 10/22/19 at 21:00 Polysaccharide Iron Complex (Niferex 150) 150 mg BID PO Last administered on 10/24/19 08:07; Start 10/22/19 at 21:00 Lisinopril (Prinivil) 40 mg DAILY PO Last administered on 10/24/19at 08:06; Start 10/23/19 at 09:00 Multivitamins (Thera M Plus) 1 tab DAILY PO Last administered on 10/24/19at 08:07; Start 10/23/19 at 09:00 Nystatin (Nystop) 1 ritu DAILY TP ; Start 10/23/19 at 09:00; Status Cancel Oxycodone HCl (Roxicodone) 10 mg PRN Q4HRS PRN PO SEVERE PAIN 7-10; Start 10/22/19 at 20:00 Pantoprazole Sodium (Protonix) 40 mg DAILY PO Last administered on 10/24/19 08:05; Start 10/23/19 at 09:00 Potassium Chloride (Klor-Con) 30 meq DAILYWBKFT PO Last administered on 10/24/19at 08:07; Start 10/23/19 at 08:00 Senna/Docusate Sodium (Senna Plus) 1 tab BID PO Last administered on 10/24/19 08:06; Start 10/22/19 at 21:00 Trimethoprim/ Sulfamethoxazole (Bactrim Ds) 1 tab BID PO ; Start 10/22/19 at 21:00; Stop 10/22/19 at 20:01; Status DC Carvedilol (Coreg) 25 mg BIDWMEALS PO Last administered on 10/24/19at 08:07; Start 10/23/19 at 08:00 Fluticasone Propionate (Flonase) 2 spray DAILY NS Last administered on 10/24/19at 09:00; Start 10/23/19 at 09:00 Insulin Human Lispro (HumaLOG) 30 units TIDWMEALS SQ Last administered on 10/23/19at 08:11; Start 10/23/19 at 08:00; Stop 10/23/19 at 12:59; Status DC Insulin Glargine (Lantus Syringe) 45 unit QHS SQ Last administered on 10/22/19at 21:00; Start 10/22/19 at 21:00 Nystatin (Nystop) 1 ritu BID TP Last administered on 10/24/19at 09:00; Start 10/22/19 at 21:00 Enoxaparin Sodium (Lovenox Per Pharmacy Prophylaxis Dosing) 1 each PRN DAILY PRN MC SEE COMMENTS; Start 10/22/19 at 20:00 Enoxaparin Sodium (Lovenox 60mg Syringe) 60 mg Q12HR SQ Last administered on 10/24/19at 08:08; Start 10/22/19 at 21:00 Insulin Human Lispro (HumaLOG) 18 units TIDWMEALS SQ Last administered on 10/24/19at 12:04; Start 10/23/19 at 17:00 Perflutren Protein Type A Microsphe (Optison) 0.66 mg STK-MED ONCE IV ; Start 10/24/19 at 13:11; Stop 10/24/19 at 13:11; Status DC Active Scripts Active Bactrim Ds Tablet (Sulfamethoxazole/Trimethoprim) 1 Each Tablet 1 Tab PO BID Klor-Con 10 (Potassium Chloride) 10 Meq Tablet.er 30 Meq PO DAILYWBKFT 7 Days Amlodipine Besylate 5 Mg Tablet 5 Mg PO DAILY Hydralazine Hcl 25 Mg Tablet 50 Mg PO TID Thera-M Tablet (Multivits,Ca,Minerals/Iron/Fa) 1 Each Tablet 1 Tab PO DAILY MDD 1 Budesonide 0.5 Mg/2 Ml Ampul.neb 0.5 Mg NEB RTBID MDD 1 Guaifenesin Dm Syrup (Guaifenesin/Dextromethorphan) 5 Ml Syrup 10 Ml PO PRN Q6HRS PRN MDD 1 Proair Hfa (Albuterol Sulfate) 8.5 Gm Hfa.aer.ad 2.5 Mg NEB PRN Q4HRS PRN MDD 1 Poly-Iron (Iron Polysaccharides Complex) 150 Mg Capsule 150 Mg PO BID MDD 1 Oxycodone Hcl Immed.release (Oxycodone Hcl) 5 Mg Tablet 10 Mg PO PRN Q4HRS PRN MDD 1 Reported Novolog Flexpen (Insulin Aspart) 100 Unit/1 Ml Insuln.pen 30 SQ TIDWMEALS Aspirin 325 Mg Tablet 0.5 Tab PO DAILY Senna-S Tablet (Sennosides/Docusate Sodium) 1 Each Tablet 1 Each PO BID Nyamyc (Nystatin) 15 Gm Powder 15 Gm TP DAILY Culturelle (Lactobacillus Rhamnosus Gg) 1 Each Capsule 1 Each PO BIDWMEALS Lantus Solostar (Insulin Glargine,Hum.rec.anlog) 100 Unit/1 Ml Insuln.pen 45 Unit SQ QHS [facility] Glucosamine-Chondr Tablet (Glucosamine Hcl/Chondr [place] A Na) 1 Each Tablet 2 Each PO DAILY Flonase Allergy Relief (Fluticasone Propionate) 9.9 Ml [place].susp 2 Sprays NS DAILY Diphenhydramine Hcl 50 Mg Capsule 25 Mg PO Q6HRS PRN Vitamin D3 (Cholecalciferol (Vitamin D3)) 1,000 Unit Tablet 2,000 Unit PO DAILY Atorvastatin Calcium 20 Mg Tablet DAILY Furosemide 20 Mg Tablet 40 Mg BID Lisinopril 40 Mg Tablet 40 DAILY Carvedilol 25 Mg Tablet 25 BID Pantoprazole Sodium (Pantoprazole Sodium) 40 Mg Tablet. DAILY Allergies Allergies: Coded Allergies: cefuroxime (Verified Allergy, Intermediate, 11/02/18) piperacillin (Verified Adverse Reaction, Intermediate, RASH, 11/02/18) TOLERATED ERTAPENEM tazobactam (Verified Adverse Reaction, Intermediate, RASH, 11/02/18) TOLERATED ERTAPENEM zolpidem (Verified Adverse Reaction, Intermediate, HALLUCINATIONS, 11/02/18) glipizide (Verified Adverse Reaction, Mild, SENSITIVITY TO SUN, 11/02/18) Uncoded Allergies: DUST (Allergy, Mild, SNEEZING, 10/25/15) Physical Exam General: Alert, Oriented X3, Cooperative HEENT: Atraumatic Lungs: Clear to auscultation Heart: Regular rate, Normal S1, Normal S2 Abdomen: Normal bowel sounds, Soft, No tenderness, No hepatosplenomegaly, Other (Obese) Neuro: Normal speech Psych/Mental Status: Mental status NL Vitals VITALS Vital Signs Date Time Temp Pulse Resp B/P (MAP) Pulse Ox O2 Delivery O2 Flow Rate FiO2 10/24/19 11:12 97.2 76 20 155/72 (99) 96 Room Air 97.2 Labs Labs Laboratory Tests Test 10/22/19 13:30 10/22/19 14:30 10/22/19 20:44 10/23/19 03:30 Urine Collection Type Unknown Urine Color Yellow Urine Clarity Clear Urine pH 5.0 (<5.0-8.0) Urine Specific [place] 1.010 (1.000-1.030) Urine Protein 100 mg/dL (NEG-TRACE) Urine Glucose (UA) 250 mg/dL (NEG) Urine Ketones (Stick) Negative mg/dL (NEG) Urine Blood Trace (NEG) Urine Nitrite Negative (NEG) Urine Bilirubin Negative (NEG) Urine Urobilinogen Dipstick 0.2 mg/dL (0.2 mg/dL) Urine Leukocyte Esterase Negative (NEG) Urine RBC 3-5 /HPF (0-2) Urine WBC Occ /HPF (0-4) Urine Squamous Epithelial Cells Occ /LPF Urine Bacteria 0 /HPF (0-FEW) Urine Hyaline Casts Few /HPF Coronavirus (PCR) Not detected (Not Detected) Glucose (Fingerstick) 238 mg/dL (70-99) White Blood Count 9.3 x10^3/uL (4.0-11.0) Red Blood Count 2.90 x10^6/uL (4.30-5.70) Hemoglobin 8.0 g/dL (13.0-17.5) Hematocrit 24.4 % (39.0-53.0) Mean Corpuscular Volume 84 fL (79-100) Mean Corpuscular Hemoglobin 28 pg (25-35) Mean Corpuscular Hemoglobin Concent 33 g/dL (31-37) Red Cell Distribution Width 15.7 % (11.5-14.5) Platelet Count 275 x10^3/uL (140-400) Neutrophils (%) (Auto) 72 % (31-73) Lymphocytes (%) (Auto) 14 % (24-48) Monocytes (%) (Auto) 10 % (0-9) Eosinophils (%) (Auto) 3 % (0-3) Basophils (%) (Auto) 1 % (0-3) Neutrophils # (Auto) 6.7 x10^3/uL (1.8-7.7) Lymphocytes # (Auto) 1.3 x10^3/uL (1.0-4.8) Monocytes # (Auto) 0.9 x10^3/uL (0.0-1.1) Eosinophils # (Auto) 0.3 x10^3/uL (0.0-0.7) Basophils # (Auto) 0.0 x10^3/uL (0.0-0.2) Sodium Level 143 mmol/L (136-145) Potassium Level 3.1 mmol/L (3.5-5.1) Chloride Level 106 mmol/L (98-107) Carbon Dioxide Level 27 mmol/L (21-32) Anion Gap 10 (6-14) Blood Urea Nitrogen 16 mg/dL (8-26) Creatinine 1.3 mg/dL (0.7-1.3) Estimated GFR (Cockcroft-Gault) 54.3 BUN/Creatinine Ratio 12 (6-20) Glucose Level 170 mg/dL (70-99) Hemoglobin A1c 7.4 % (4.8-5.6) Calcium Level 8.5 mg/dL (8.5-10.1) Total Bilirubin 0.3 mg/dL (0.2-1.0) Aspartate Amino Transf (AST/SGOT) 14 U/L (15-37) Alanine Aminotransferase (ALT/SGPT) 18 U/L (16-63) Alkaline Phosphatase 90 U/L (46-116) Troponin I Quantitative 0.097 ng/mL (0.000-0.055) Total Protein 6.7 g/dL (6.4-8.2) Albumin 2.1 g/dL (3.4-5.0) Albumin/Globulin Ratio 0.5 (1.0-1.7) Triglycerides Level 162 mg/dL (0-150) Cholesterol Level 131 mg/dL (0-200) LDL Cholesterol, Calculated 75 mg/dL (0-100) VLDL Cholesterol, Calculated 32 mg/dL (0-40) Non-HDL Cholesterol Calculated 107 mg/dL (0-129) HDL Cholesterol 24 mg/dL (40-60) Cholesterol/HDL Ratio 5.5 Test 10/23/19 07:30 10/23/19 10:59 10/23/19 12:48 10/23/19 16:34 Glucose (Fingerstick) 165 mg/dL (70-99) 68 mg/dL (70-99) 66 mg/dL (70-99) 139 mg/dL (70-99) Test 10/23/19 21:07 10/24/19 04:00 10/24/19 07:53 10/24/19 10:32 Glucose (Fingerstick) 89 mg/dL (70-99) 140 mg/dL (70-99) 259 mg/dL (70-99) C-Reactive Protein, Quantitative 104.5 mg/L (0-3.3) Test 10/24/19 12:00 Red Blood Count 3.13 x10^6/uL (4.30-5.70) Absolute Reticulocyte Count 0.042 x10^6/uL (0.020-0.120) Percent Reticulocyte Count 1.3 % (0.5-2.3) Immature Reticulocyte Fraction 0.53 (0.20-0.60) Sodium Level 141 mmol/L (136-145) Potassium Level 4.0 mmol/L (3.5-5.1) Chloride Level 105 mmol/L (98-107) Carbon Dioxide Level 28 mmol/L (21-32) Anion Gap 8 (6-14) Blood Urea Nitrogen 23 mg/dL (8-26) Creatinine 1.5 mg/dL (0.7-1.3) Estimated GFR (Cockcroft-Gault) 46.0 Glucose Level 202 mg/dL (70-99) Calcium Level 8.3 mg/dL (8.5-10.1) Iron Level 13 ug/dL (65-175) Total Iron Binding Capacity 145 ug/dL (250-450) Iron Saturation 9 % (15-34) Ferritin 203 ng/mL (26-388) Troponin I Quantitative 0.041 ng/mL (0.000-0.055) Laboratory Tests Test 10/23/19 16:34 10/23/19 21:07 10/24/19 04:00 10/24/19 07:53 Glucose (Fingerstick) 139 mg/dL (70-99) 89 mg/dL (70-99) 140 mg/dL (70-99) C-Reactive Protein, Quantitative 104.5 mg/L (0-3.3) Test 10/24/19 10:32 10/24/19 12:00 Glucose (Fingerstick) 259 mg/dL (70-99) Red Blood Count 3.13 x10^6/uL (4.30-5.70) Absolute Reticulocyte Count 0.042 x10^6/uL (0.020-0.120) Percent Reticulocyte Count 1.3 % (0.5-2.3) Immature Reticulocyte Fraction 0.53 (0.20-0.60) Sodium Level 141 mmol/L (136-145) Potassium Level 4.0 mmol/L (3.5-5.1) Chloride Level 105 mmol/L (98-107) Carbon Dioxide Level 28 mmol/L (21-32) Anion Gap 8 (6-14) Blood Urea Nitrogen 23 mg/dL (8-26) Creatinine 1.5 mg/dL (0.7-1.3) Estimated GFR (Cockcroft-Gault) 46.0 Glucose Level 202 mg/dL (70-99) Calcium Level 8.3 mg/dL (8.5-10.1) Iron Level 13 ug/dL (65-175) Total Iron Binding Capacity 145 ug/dL (250-450) Iron Saturation 9 % (15-34) Ferritin 203 ng/mL (26-388) Troponin I Quantitative 0.041 ng/mL (0.000-0.055) Assessment/Plan Assessment/Plan Anemia. Hemoglobin of 8.0. No overt bleeding. This appears to be chronic and may have several possible contributors including chronic disease but occult GI blood loss cannot be totally excluded. Last year he was reported to have a heme positive stool but had upper endoscopy that was negative and a recent colonoscopy reported at that time which was also negative at . His hemoglobin then was 9.4. Plan: Check iron stores and check stool for Hemoccult. Since he is not having any symptoms no urgent endoscopic evaluation is recommended. However since we do not have the records of his colonoscopy it might be reasonable to get those records and if he has not had a colonoscopy in several years an elective colonoscopy might be reasonable once he is more stable. LINDA CHAVIRA MD Oct 24, 2019 13:29
--- NOTE | 2019-10-24 16:30 | NUR ---
upon entry to room. patient had pulled out IV and was bleeding all over himself and bed. pressure and bandage applied to site. patient cleaned up and linen changed. will continue to monitor patient and attempt to start new iv.
[2019-10-24] MEDS: oxyCODONE IR 5 MG TABLET PO PRN (16:38)
--- NOTE | 2019-10-24 17:00 | NUR ---
spoke with DR Rian Deras(ID) and informed to administer antibiotic slow for first 10 minutes, then to hold drip for 15 mintues and then to run slow due to piperacillin allergy. benadryl available if needed for reaction. this RN stayed at patients bedside during first 30 minutes of administration of antibiotic. patient had no complaints of changes at this time. will continue to monitor patient.
[2019-10-24] MEDS: AMPICILLIN/SULBACTAM 3 GM in IV NORMAL SALINE 100ML 100 ML IV SCH (17:28)
--- NOTE | 2019-10-24 19:22 | CONS ---
DATE OF CONSULTATION: 10/24/2019 Manuel Montgomery, nurse practitioner, dictating for Dr. Marina Deras, Infectious Disease. REFERRING PHYSICIAN: Dr. Aguilera. REASON FOR CONSULTATION: Possible osteomyelitis. HISTORY OF PRESENT ILLNESS: This patient is a 74-year-old male with a past medical history of morbid obesity, diabetes type 2, peripheral neuropathy, and a previous left transmetatarsal amputation. He presented to the ER with complaints of left arm pain. He says he has a cat that clawed him several times. Ultrasound showed patent veins. No thrombus demonstrated. On further exam, he was found to have an ulcer on the distal left TMA site that has been present for several weeks. X-ray imaging showed soft tissue swelling and small erosions on the cuboid. He was evaluated by Dr. Horton with recommendations for offloading, local wound care, and MRI. An arterial ultrasound showed no significant left-sided arterial disease, however, moderate to high-grade right SFA disease is noted in the right leg. Cardiology did not recommend any inpatient intervention at this time. The patient complains of fever, chills, and joint pains, primarily shoulders and wrists. He says he is not feeling very well. He is incontinent of urine. He denies abdominal pain, nausea, or vomiting. He had a bowel movement earlier. Denies cough, shortness of air, or chest discomfort. Denies sinus drainage or congestion. PAST MEDICAL HISTORY: Morbid obesity, diabetes type 2, peripheral neuropathy, peripheral vascular disease, hypercholesterolemia, hypertension, sleep apnea, arthritis, degenerative disc disease, and depression. PAST SURGICAL HISTORY: Right rotator cuff surgery. SOCIAL HISTORY: The patient lives at home. He is a former smoker. He has two cats. ALLERGIES: Reviewed and includes cefuroxime and piperacillin/tazobactam for which he does not remember what type of reaction he had. MEDICATIONS: Reviewed on the MAY. He is currently not on any antibiotics. REVIEW OF SYSTEMS: Per HPI, otherwise all other review of systems are negative. PHYSICAL EXAMINATION: VITAL SIGNS: Temperature is 97.2, T-max 100.0, blood pressure 155/72, heart rate 76, respiratory rate 20, pulse oximetry is 96% on room air. GENERAL: The patient is propped up in bed, alert, and shivering. HEENT: Pupils are equally round. Oropharynx, pink and moist. No lesions seen. NECK: Supple. LUNGS: Clear to auscultation. No accessory muscle use. HEART: S1 and S2. ABDOMEN: Obese, soft, nontender with bowel sounds present. Mild yeast on pannus/groin area. EXTREMITIES: No gross edema or cyanosis. Left arm is slightly swollen and warm. He has multiple scabs. No redness noted. He did not have any axillary lymph nodes palpable. SKIN: Warm to touch. No signs of generalized rash. He has small scabs to his right great toe and a fairly superficial appearing ulcer on the distal left TMA without evidence of infection. Distal pulses palpable. He has some scratch luna on his left whalen. NEUROLOGIC: Alert and answers simple questions appropriately, but is a poor historian. LABORATORY DATA: Recent WBC 9.3, hemoglobin 8.0, and platelets 275,000. Sodium 141, potassium 4.0, creatinine 1.5, BUN 23. Lactic acid 1.1. Troponin 0.097, total bilirubin 0.3, AST 14, ALT 18, albumin 2.1. CRP 104.5, glucose 91. Urinalysis on 10/21 showed occasional wbc's and squamous epithelial cells without bacteria. COVID PCR not detected. IMAGING: Ultrasound of upper extremity, foot x-ray, and arterial ultrasound per HPI. Chest x-ray showed no acute infiltrates. Abdominal/pelvis CT reviewed. Echocardiogram pending. IMPRESSION: 1. Fever and chills. 2. Arthralgia. 3. Cat scratches. 4. Chronic nonhealing wounds, lower extremities. No clinical evidence of infection. 5. ANTIBIOTIC ALLERGIES TO ZOSYN AND CEFUROXIME, REACTION UNKNOWN. 6. Peripheral vascular disease. 7. Diabetes with peripheral neuropathy. 8. Chronic kidney disease. 9. Morbid obesity. 10. Hypertension. PLAN: 1. We will dose with Unasyn. We will give it slowly and observe. Monitor closely. We will discontinue if reaction occurs. Benadryl has been ordered as needed. 2. Obtain blood cultures x 2 sets. 3. Local wound care. 4. Topical nystatin to infected area. 5. Probiotics. Discussed with RN Thank you, Dr. Aguilera, for asking us to participate in this patient's care. Should you have further questions or concerns, please call. The patient was seen and examined and plan of care implemented by Dr. Marina Deras. MARINA DERAS MD DR: BENOIT/domitila JOB#: [id number] / [id number] KEVIN
[2019-10-24] MEDS: LACTOBACILLUS RHAMNOSUS GG 1 CAPSULE. PO SCH (22:20)
[2019-10-24] MEDS: INSULIN GLARGINE SYRINGE. SQ SCH (22:28)
[2019-10-25] MEDS: diphenhydrAMINE 50 MG/ML VIAL IVP PRN ×3 (00:18→17:43)
[2019-10-25] MEDS: oxyCODONE IR 5 MG TABLET PO PRN ×2 (00:19→11:12)
[2019-10-25] MEDS: CYCLOBENZAPRINE 10 MG TABLET. PO PRN ×2 (00:19→22:04)
[2019-10-25] MEDS: AMPICILLIN/SULBACTAM 3 GM in IV NORMAL SALINE 100ML 100 ML IV SCH ×4 (00:28→17:43)
--- NOTE | 2019-10-25 00:58 | NUR ---
Pt woke up and called out -could not figure out what "was supposed to be going on." RN asked pt if knew where he was - he acknowledged was in [facility]. Knew name and . Could not state why in hospital. RN informed pt why here - pt seemingly unable to grasp concept of why in hospital and what he should be doing at 0025 at night. RN kept reassuring pt with the same information. Will continue to monitor. 0035: RN noted welt-like bumps to sides of face. Did not remember seeing them at start of shift. Gave pt Benadryl for itching (has very dry skin on FA with multiple scabs from scratching and pt reported feeling itchy. Upon seeing welts on face, RN questioned whether or not to give atbx as there is a possibility of a reaction. Had another RN come in and assess and get second opinion. Decision made between two RN's to call pharmacy. Luís in pharmacy was made aware of situation with welts and pt just having received IV benadryl. Luís stated to go ahead and give med and alert ID docs that may be a reaction. Atbx started - running over and hour as opposed to 30min. Will monitor pt closely. 0055: RN checked pt - no new welts noted - pt resting comfortably. Will continue to monitor. Addendum: 10/25/19 at 0154 by BISHNU SEGAL RN RN Time or previous note by this RN [id number]. 0110: RN rechecked face for welts - nothing new noted. 0125: RN again checked on pt - no advancement of welts. 0153: Atbx done - face unchanged. Will continue to monitor.
[2019-10-25 02:19] LABS: BILIRUBIN,URINE NEGATIVE (NEG); CLARITY,URINE CLEAR; COLOR,URINE YELLOW; NITRITE,URINE NEGATIVE (NEG); PROTEIN,URINE NEGATIVE (NEG-TRACE); UROBILINOGEN,URINE 0.2 mg/dL (0.2 mg/dL)
[2019-10-25 02:33] LABS: BACTERIA,URINE 0 /HPF (0-FEW); HYALINE CASTS, URINE FEW /HPF; RBC,URINE OCC /HPF (0-2); SQUAMOUS EPITHELIAL CELL,UR OCC /LPF; WBC,URINE OCC /HPF (0-4)
[2019-10-25 03:20] VITALS: BP 151/70
[2019-10-25] MEDS: MORPHINE SULFATE 4 MG/ML VIAL. IV PRN (06:03)
[2019-10-25 07:00] VITALS: BP 144/49
[2019-10-25] MEDS: BUDESONIDE 0.5 MG/2 ML NEBU. NEB SCH ×2 (07:26→19:17)
--- NOTE | 2019-10-25 08:26 | CARD ---
MR#: [id number] Date of Study: 10/24/2019 Ordering Physician: HALIE RUSSELL, Referring Physician: HALIE RUSSELL, Tech: Polly Sanchez [facility] APPROVED REPORT EXAM: Two-dimensional and M-mode echocardiogram with Doppler and color Doppler. Other Information Quality : Fair Technically limited study due to body habitus. INDICATION Chest Pain RISK FACTORS Obesity 2D DIMENSIONS RVDd2.9 (2.9-3.5cm)Left Atrium(2D)4.5 (1.6-4.0cm) IVSd1.7 (0.7-1.1cm)Aortic Root(2D)3.3 (2.0-3.7cm) LVDd5.0 (3.9-5.9cm)LVOT Diameter2.7 (1.8-2.4cm) PWd1.2 (0.7-1.1cm)LVDs3.9 (2.5-4.0cm) FS (%) 22.0 %SV52.3 ml LVEF(%)44.2 (>50%) Aortic Valve AoV Peak Adal.174.1cm/sAoV VTI27.4cm AO Peak GR.12.1mmHgLVOT VTI 15.24cm AO Mean GR.6mmHgAVA (VTI)3.10cm2 Mitral Valve MV E Umnrziby905.1cm/sMV DECEL [id number] MV A Gfetptfl778.2cm/sE/A Ratio0.9 TDI Lateral E' P. V6.32cm/sMedial E' P. V11.55cm/s E/Lateral E'16.8E/Medial E'9.2 LEFT VENTRICLE The left ventricle is normal size. There is mild concentric left ventricular hypertrophy. The left ve ntricular systolic function is normal and the ejection fraction is within normal range. The Ejection Fraction is 55-60%. There is normal LV segmental wall motion. Transmitral Doppler flow pattern is Gra de I-abnormal relaxation pattern. RIGHT VENTRICLE The right ventricle is normal size. The right ventricular systolic function is normal. ATRIA The left atrium is mildly dilated. The right atrium size is normal. The interatrial septum is intact with no evidence for an atrial septal defect or patent foramen ovale as noted on 2-D or Doppler imagi ng. AORTIC VALVE The aortic valve is not well visualized. Doppler and Color Flow revealed no significant aortic regurg itation. There is no significant aortic valvular stenosis. MITRAL VALVE Not well visualized. There is no mitral valve stenosis. Doppler and Color Flow revealed no mitral suhail ve regurgitation noted. TRICUSPID VALVE Not well visualized. Doppler and Color Flow revealed no tricuspid valve regurgitation noted. There is no tricuspid valve stenosis. PULMONIC VALVE The pulmonic valve is not well visualized. Doppler and Color Flow revealed no pulmonic valvular regur gitation. There is no pulmonic valvular stenosis. GREAT VESSELS The aortic root is normal in size. The ascending aorta is not well seen. The IVC is normal in size an d collapses >50% with inspiration. PERICARDIAL EFFUSION There is no evidence of significant pericardial effusion. Critical Notification Critical Value: No <Conclusion> The left ventricular systolic function is grossly normal with EF of 55% There is grossly normal wall motion. Technically very difficult study. Signed by : Halie Russell, Electronically Approved : 10/25/2019 08:25:32
[2019-10-25] MEDS: FLUTICASONE 50MCG/NASAL SPRAY 16GM BOTTLE. NS SCH (08:37)
[2019-10-25] MEDS: IRON POLYSACCHARIDE COMPLEX 150 MG CAPSULE PO SCH ×2 (08:37→22:03)
[2019-10-25] MEDS: MULTIVITAMIN with MINERAL TABLET. PO SCH (08:37)
[2019-10-25] MEDS: amLODIPine BESYLATE 5 MG TABLET PO SCH (08:38)
[2019-10-25] MEDS: FUROSEMIDE 40 MG TABLET. PO SCH ×2 (08:38→14:19)
[2019-10-25] MEDS: ATORVASTATIN CALCIUM 20 MG TABLET PO SCH (08:38)
[2019-10-25] MEDS: LACTOBACILLUS RHAMNOSUS GG 1 CAPSULE. PO SCH ×2 (08:39→22:04)
[2019-10-25] MEDS: ASPIRIN CHEWABLE 81 MG TABLET. PO SCH (08:39)
[2019-10-25] MEDS: CHOLECALCIFEROL (VITAMIN D3) 1,000 UNIT TABLET PO SCH (08:39)
[2019-10-25] MEDS: SENNOSIDES/DOCUSATE 8.6/50MG TABLET. PO SCH ×2 (08:39→22:03)
[2019-10-25] MEDS: LISINOPRIL 20 MG TABLET PO SCH (08:39)
[2019-10-25] MEDS: POTASSIUM CHLORIDE 10 MEQ TABLET.ER. PO SCH (08:39)
[2019-10-25] MEDS: CARVEDILOL 12.5 MG TABLET. PO SCH ×2 (08:40→17:42)
[2019-10-25] MEDS: PANTOPRAZOLE 40 MG TABLET.DR. PO SCH (08:40)
[2019-10-25] MEDS: INSULIN LISPRO 300 UNITS/3 ML VIAL. SQ SCH ×6 (08:48→17:00)
[2019-10-25] MEDS: NYSTATIN TOPICAL POWDER 15GM BOTTLE. TP SCH ×2 (08:49→22:05)
--- NOTE | 2019-10-25 09:32 | PDOC ---
Date of Service: DATE: 10/25/19 TIME: 09:22 Subjective: Subjective: Feels "katie crummy," can't elaborate. No specific GI complaints. Likes eggs - "what's this called?" Stooling without issue. Objective: Objective: Tmax 100.5 Vital Signs: Vital Signs Date Time Temp Pulse Resp B/P (MAP) Pulse Ox O2 Delivery O2 Flow Rate FiO2 10/25/19 08:40 79 151/70 10/25/19 07:30 Room Air 10/25/19 07:29 99 10/25/19 07:00 98.2 18 98.2 Labs: Laboratory Tests Test 10/24/19 10:32 10/24/19 12:00 10/24/19 16:43 10/24/19 17:01 Glucose (Fingerstick) 259 mg/dL 55 mg/dL 91 mg/dL Red Blood Count 3.13 x10^6/uL Absolute Reticulocyte Count 0.042 x10^6/uL Percent Reticulocyte Count 1.3 % Immature Reticulocyte Fraction 0.53 Sodium Level 141 mmol/L Potassium Level 4.0 mmol/L Chloride Level 105 mmol/L Carbon Dioxide Level 28 mmol/L Anion Gap 8 Blood Urea Nitrogen 23 mg/dL Creatinine 1.5 mg/dL Estimated GFR (Cockcroft-Gault) 46.0 Glucose Level 202 mg/dL Calcium Level 8.3 mg/dL Iron Level 13 ug/dL Total Iron Binding Capacity 145 ug/dL Iron Saturation 9 % Ferritin 203 ng/mL Troponin I Quantitative 0.041 ng/mL Test 10/24/19 19:31 10/25/19 01:50 10/25/19 07:13 Glucose (Fingerstick) 190 mg/dL 154 mg/dL Urine Collection Type Unknown Urine Color Yellow Urine Clarity Clear Urine pH 5.0 Urine Specific [place] 1.015 Urine Protein Negative mg/dL Urine Glucose (UA) Negative mg/dL Urine Ketones (Stick) Negative mg/dL Urine Blood Negative Urine Nitrite Negative Urine Bilirubin Negative Urine Urobilinogen Dipstick 0.2 mg/dL Urine Leukocyte Esterase Negative Urine RBC Occ /HPF Urine WBC Occ /HPF Urine Squamous Epithelial Cells Occ /LPF Urine Bacteria 0 /HPF Urine Hyaline Casts Few /HPF Urine Mucus Mod /LPF Imaging: LE Duplex 10/23 <Conclusion> 1. 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 No significant left-sided arterial disease with two-vessel runoff CT A/P 10/22/19 IMPRESSION: 1. There is cholelithiasis. 2. Appendix is not confidently identified although no significant pericecal inflammatory type change. There is no evidence of bowel obstruction. There is mild retained stool in the colon. 3. There is nonspecific strandy change of the perinephric fat bilaterally.There is no hydronephrosis. There are some small foci of exophytic densityof the bilateral kidneys potentially due to hemorrhagic or complex cysts although small solid lesions not excluded. Nonemergent multi phase CT evaluation versus 6 month follow-up to assess stability is recommended. 4. There is mild prominence of the urinary bladder [place], could be due to incomplete distention unless suspicion for cystitis. 5. There is small nonspecific lytic lesion of the right T12 vertebral body. EGD 10/2018 E-normal. GEJ at 45cm. G-Prepyloric erythema D-Normal to second portion. IMP: Non-erosive gastritis. No cause for the anemia found. From past encounter: Reviewed [facility] records: Last colonoscopy 2016. Mention of "chronic anemia" and hemoglobin of 10+ then. 8mm serrated adenoma removed and hemorrhoids noted. PE: GEN: NAD, eating eggs and toast LUNGS: CTAB HEART: RRR ABD: large, non-tender NEURO/PSYCH: a little confused? A/P: LOUISE/ACD - past 'scopes as above, on PPI and iron Fever/chills, CHF, PAD, CKD, chronic non-healing wounds COVID negative -- Continue same per GI, will review additional recs w/ Dr. Drew. Justicifation of Admission Dx: Justifications for Admission: Justification of Admission Dx: Yes MATT MARVIN Oct 25, 2019 09:32
--- NOTE | 2019-10-25 09:39 | PDOC ---
Infectious Disease Note Subjective Subjective Feeling better. Occ neuropathy No F/C/S/N/V/D/SOA/rash ROS ROS o/w neg Vital Sign Vital Signs Vital Signs Date Time Temp Pulse Resp B/P (MAP) Pulse Ox O2 Delivery O2 Flow Rate FiO2 10/25/19 08:40 79 151/70 10/25/19 07:30 Room Air 10/25/19 07:29 99 10/25/19 07:00 98.2 18 98.2 Physical Exam PHYSICAL EXAM GENERAL: The patient is propped up in bed, alert, and smiling HEENT: Pupils are equally round. Oropharynx, pink and moist. No lesions seen. NECK: Supple. LUNGS: Clear to auscultation. No accessory muscle use. HEART: S1 and S2. ABDOMEN: Obese, soft, nontender with bowel sounds present. Obese, Mild yeast on pannus/groin area. EXTREMITIES: No gross edema or cyanosis. Left arm is slightly swollen and warm. He has multiple scabs. No redness noted. He did not have any axillary lymph nodes palpable. SKIN: Warm to touch. No signs of generalized rash. He has small scabs to his right great toe and a fairly superficial appearing ulcer on the distal left TMA without evidence of infection. Distal pulses palpable. He has some scratch luna on his left whalen. NEUROLOGIC: Alert and answers simple questions appropriately, but is a poor historian Labs Lab Laboratory Tests Test 10/24/19 10:32 10/24/19 12:00 10/24/19 16:43 10/24/19 17:01 Glucose (Fingerstick) 259 mg/dL (70-99) 55 mg/dL (70-99) 91 mg/dL (70-99) Red Blood Count 3.13 x10^6/uL (4.30-5.70) Absolute Reticulocyte Count 0.042 x10^6/uL (0.020-0.120) Percent Reticulocyte Count 1.3 % (0.5-2.3) Immature Reticulocyte Fraction 0.53 (0.20-0.60) Sodium Level 141 mmol/L (136-145) Potassium Level 4.0 mmol/L (3.5-5.1) Chloride Level 105 mmol/L (98-107) Carbon Dioxide Level 28 mmol/L (21-32) Anion Gap 8 (6-14) Blood Urea Nitrogen 23 mg/dL (8-26) Creatinine 1.5 mg/dL (0.7-1.3) Estimated GFR (Cockcroft-Gault) 46.0 Glucose Level 202 mg/dL (70-99) Calcium Level 8.3 mg/dL (8.5-10.1) Iron Level 13 ug/dL (65-175) Total Iron Binding Capacity 145 ug/dL (250-450) Iron Saturation 9 % (15-34) Ferritin 203 ng/mL (26-388) Troponin I Quantitative 0.041 ng/mL (0.000-0.055) Test 10/24/19 19:31 10/25/19 01:50 10/25/19 07:13 Glucose (Fingerstick) 190 mg/dL (70-99) 154 mg/dL (70-99) Urine Collection Type Unknown Urine Color Yellow Urine Clarity Clear Urine pH 5.0 (<5.0-8.0) Urine Specific [place] 1.015 (1.000-1.030) Urine Protein Negative mg/dL (NEG-TRACE) Urine Glucose (UA) Negative mg/dL (NEG) Urine Ketones (Stick) Negative mg/dL (NEG) Urine Blood Negative (NEG) Urine Nitrite Negative (NEG) Urine Bilirubin Negative (NEG) Urine Urobilinogen Dipstick 0.2 mg/dL (0.2 mg/dL) Urine Leukocyte Esterase Negative (NEG) Urine RBC Occ /HPF (0-2) Urine WBC Occ /HPF (0-4) Urine Squamous Epithelial Cells Occ /LPF Urine Bacteria 0 /HPF (0-FEW) Urine Hyaline Casts Few /HPF Urine Mucus Mod /LPF Micro AORTIC VALVE The aortic valve is not well visualized. Doppler and Color Flow revealed no significant aortic regurgitation. There is no significant aortic valvular stenosis. MITRAL VALVE Not well visualized. There is no mitral valve stenosis. Doppler and Color Flow revealed no mitral valve regurgitation noted. TRICUSPID VALVE Not well visualized. Doppler and Color Flow revealed no tricuspid valve regurgitation noted. There is no tricuspid valve stenosis. PULMONIC VALVE The pulmonic valve is not well visualized. Doppler and Color Flow revealed no pulmonic valvular regurgitation. There is no pulmonic valvular stenosis. Objective Assessment 1. Fever and chills.- better 2. Arthralgia. 3. Cat scratches. 4. Chronic nonhealing wounds, lower extremities. No clinical evidence of infection. 5. ANTIBIOTIC ALLERGIES TO ZOSYN AND CEFUROXIME, REACTION UNKNOWN. 6. Peripheral vascular disease.arterial doppler per Card 7. Diabetes with peripheral neuropathy. 8. Chronic kidney disease. 9. Morbid obesity. 10. Hypertension. Plan Plan of Care Fever etiology unclear - better superficial abrasions on both foot no evidence of OM Cat scratches on LUE, no gross evidence of cellulitis or abscess on todays exam DM with neuropathy PAD per card Cont unasyn - f/u blood cults,give it slowly and observe,redose if he tolerates it well Benadryl prn Monitor closely Stop if any reactions D/w nursing LAURI MO MD Oct 25, 2019 09:39
--- NOTE | 2019-10-25 10:12 | PDOC2 ---
CONSULT Date of Service Date of Service DATE: 10/25/19 TIME: 09:40 Reason for Consult Reason for Consult: PVD, bilateral foot ulcers Referring Physician Referring Physician: Dr. Aguilera Identification/Chief Complaint Chief Complaint Left arm swelling, left TMA stump wound Source Source: Chart review, Patient History of Present Illness Reason for Visit: This is a pleasant 74-year-old male with a past medical history of morbid obesity, diabetes, peripheral neuropathy and previous left transmetatarsal amputation who is seen in the emergency room for complaints of left arm swelling and overall inability to care for himself. Patient states swelling has been present for several days and he continues to complain of some discomfort. Ultrasound did not demonstrate any deep vein thrombosis. He was noted at time of examination to have superficial ulcerations on his right first toe and his left TMA stump. Patient has seen and evaluated by Dr. Horton and he recommends local wound care, offloading and consideration of MRI. Arterial ultrasound demonstrates moderate to high-grade right SFA disease, one-vessel runoff in the right leg and no significant left-sided arterial disease with two-vessel runoff. Patient has been seen by Dr. Easton for Chest discomfort and evaluated the patient for his PVD and is recommending no arterial intervention. Infections Disease has been consulted and managing his antibiotic therapy. The patient reports his left TMA was performed at and that he has a small wound due to repetitive trauma by hitting his stump. He states he has peripheral neuropathy and diminished sensation in his feet but denies any pain or discomfort. He reports no history of lower extremity claudication, he states he does not walk long distances due to his feeling of instability. Past Medical History Cardiovascular: HTN, Hyperlipidemia, Other Pulmonary: Other Heme/Onc: Anemia NOS Psych: Depression Musculoskeletal: Other Renal/: Chronic renal insuff, Benign prostatic enlarg. Endocrine: Diabetes Past Surgical History Past Surgical History Left TMA Past Surgical History: Other Family History Family History: Diabetes, Hypertension Social History Quit ALCOHOL: none Drugs: None Lives: with Family Current Problem List Problem List Problems Medical Problems: (1) Elevated troponin Status: Acute (2) Wound of foot Status: Acute Current Medications Current Medications Current Medications Sodium Chloride 500 ml @ 500 mls/hr 1X ONCE IV Last administered on 10/22/19at 13:12; Start 10/22/19 at 13:00; Stop 10/22/19 at 13:59; Status DC Iohexol (Omnipaque 300 Mg/ml) 60 ml 1X ONCE IV Last administered on 10/22/19at 13:58; Start 10/22/19 at 13:45; Stop 10/22/19 at 13:47; Status DC Info (CONTRAST GIVEN -- Rx MONITORING) 1 each PRN DAILY PRN MC SEE COMMENTS; Start 10/22/19 at 14:00; Stop 10/24/19 at 13:59; Status DC Ondansetron HCl (Zofran) 4 mg PRN Q8HRS PRN IV NAUSEA/VOMITING; Start 10/22/19 at 15:30; Stop 10/23/19 at 15:29; Status DC Fentanyl Citrate (Fentanyl 2ml Vial) 50 mcg PRN Q1HR PRN IV PAIN Last administered on 10/22/19at 20:17; Start 10/22/19 at 15:30; Stop 10/23/19 at 15:29; Status DC Lorazepam (Ativan Inj) 1 mg PRN Q4HRS PRN IVP ANXIETY / AGITATION Last adm inistered on 10/22/19at 19:32; Start 10/22/19 at 17:45 Insulin Human Lispro (HumaLOG) 0-9 UNITS TIDWMEALS SQ Last administered on 10/25/19at 08:49; Start 10/23/19 at 08:00 Dextrose (Dextrose 50%-Water Syringe) 12.5 gm PRN Q15MIN PRN IV SEE COMMENTS; Start 10/22/19 at 17:45 Phenazopyridine HCl (Pyridium) 200 mg 1X ONCE PO Last administered on 10/22/19at 20:59; Start 10/22/19 at 19:45; Stop 10/22/19 at 19:48; Status DC Phenazopyridine HCl (Pyridium) 200 mg PRN TID PRN PO URINARY PAIN; Start 10/22/19 at 19:45 Morphine Sulfate (Morphine Sulfate) 4 mg PRN Q2HR PRN IV PAIN Last administered on 10/25/19at 06:03; Start 10/22/19 at 19:45 Cyclobenzaprine HCl (Flexeril) 10 mg PRN Q6HRS PRN PO MUSCLE SPASMS Last administered on 10/25/19at 00:19; Start 10/22/19 at 20:00 Albuterol Sulfate (Ventolin Neb Soln) 2.5 mg PRN Q4HRS PRN NEB SHORTNESS OF BREATH; Start 10/22/19 at 20:00 Amlodipine Besylate (Norvasc) 5 mg DAILY PO Last administered on 10/25/19 08:38; Start 10/23/19 at 09:00 Aspirin (Aspirin Chewable) 162 mg DAILY PO Last administered on 10/25/19 08:39; Start 10/23/19 at 09:00 Atorvastatin Calcium (Lipitor) 20 mg DAILY PO Last administered on 10/25/19 08:38; Start 10/23/19 at 09:00 Budesonide (Pulmicort) 0.5 mg RTBID NEB Last administered on 10/25/19 07:26; Start 10/22/19 at 20:00 Vitamin D (Vitamin D3) 2,000 unit DAILY PO Last administered on 10/25/19 08:39; Start 10/23/19 at 09:00 Furosemide (Lasix) 40 mg BID92 PO Last administered on 10/25/19 08:38; Start 10/23/19 at 09:00 Guaifenesin (Robitussin Dm) 10 ml PRN Q6HRS PRN PO COUGH, 1st CHOICE; Start 10/22/19 at 20:00 Hydralazine HCl (Apresoline) 50 mg TID PO Last administered on 10/25/19 08:38; Start 10/22/19 at 21:00 Polysaccharide Iron Complex (Niferex 150) 150 mg BID PO Last administered on 10/25/19 08:37; Start 10/22/19 at 21:00 Lisinopril (Prinivil) 40 mg DAILY PO Last administered on 10/25/19 08:39; Start 10/23/19 at 09:00 Multivitamins (Thera M Plus) 1 tab DAILY PO Last administered on 10/25/19 08:37; Start 10/23/19 at 09:00 Nystatin (Nystop) 1 ritu DAILY TP ; Start 10/23/19 at 09:00; Status Cancel Oxycodone HCl (Roxicodone) 10 mg PRN Q4HRS PRN PO SEVERE PAIN 7-10 Last administered on 10/25/19 00:19; Start 10/22/19 at 20:00 Pantoprazole Sodium (Protonix) 40 mg DAILY PO Last administered on 10/25/19 08:40; Start 10/23/19 at 09:00 Potassium Chloride (Klor-Con) 30 meq DAILYWBKFT PO Last administered on 10/25/19at 08:39; Start 10/23/19 at 08:00 Senna/Docusate Sodium (Senna Plus) 1 tab BID PO Last administered on 10/25/19at 08:39; Start 10/22/19 at 21:00 Trimethoprim/ Sulfamethoxazole (Bactrim Ds) 1 tab BID PO ; Start 10/22/19 at 21:00; Stop 10/22/19 at 20:01; Status DC Carvedilol (Coreg) 25 mg BIDWMEALS PO Last administered on 10/25/19at 08:40; Start 10/23/19 at 08:00 Fluticasone Propionate (Flonase) 2 spray DAILY NS Last administered on 10/25/19at 08:37; Start 10/23/19 at 09:00 Insulin Human Lispro (HumaLOG) 30 units TIDWMEALS SQ Last administered on 10/23/19at 08:11; Start 10/23/19 at 08:00; Stop 10/23/19 at 12:59; Status DC Insulin Glargine (Lantus Syringe) 45 unit QHS SQ Last administered on 10/24/19at 22:28; Start 10/22/19 at 21:00 Nystatin (Nystop) 1 ritu BID TP Last administered on 10/25/19at 08:49; Start 10/22/19 at 21:00 Enoxaparin Sodium (Lovenox Per Pharmacy Prophylaxis Dosing) 1 each PRN DAILY PRN MC SEE COMMENTS; Start 10/22/19 at 20:00 Enoxaparin Sodium (Lovenox 60mg Syringe) 60 mg Q12HR SQ Last administered on 10/25/19at 08:40; Start 10/22/19 at 21:00 Insulin Human Lispro (HumaLOG) 18 units TIDWMEALS SQ Last administered on 10/08 09/26at 08:48; Start 10/23/19 at 17:00 Perflutren Protein Type A Microsphe (Optison) 0.66 mg STK-MED ONCE IV ; Start 8/16/20 at 13:11; Stop 10/24/19 at 13:11; Status DC Ampicillin Sodium/ Sulbactam Sodium 3 gm/Sodium Chloride 100 ml @ 200 mls/hr Q6HRS IV Last administered on 10/25/19at 06:03; Start 10/24/19 at 16:30 Diphenhydramine HCl (Benadryl) 25 mg PRN Q6HRS PRN IVP ITCHING Last administered on 10/25/19at 00:18; Start 10/24/19 at 16:00 Lactobacillus Rhamnosus (Culturelle) 1 cap BID PO Last administered on 10/25/19at 08:39; Start 10/24/19 at 21:00 Active Scripts Active Bactrim Ds Tablet (Sulfamethoxazole/Trimethoprim) 1 Each Tablet 1 Tab PO BID Klor-Con 10 (Potassium Chloride) 10 Meq Tablet.er 30 Meq PO DAILYWBKFT 7 Days Amlodipine Besylate 5 Mg Tablet 5 Mg PO DAILY Hydralazine Hcl 25 Mg Tablet 50 Mg PO TID Thera-M Tablet (Multivits,Ca,Minerals/Iron/Fa) 1 Each Tablet 1 Tab PO DAILY MDD 1 Budesonide 0.5 Mg/2 Ml Ampul.neb 0.5 Mg NEB RTBID MDD 1 Guaifenesin Dm Syrup (Guaifenesin/Dextromethorphan) 5 Ml Syrup 10 Ml PO PRN Q6HRS PRN MDD 1 Proair Hfa (Albuterol Sulfate) 8.5 Gm Hfa.aer.ad 2.5 Mg NEB PRN Q4HRS PRN MDD 1 Poly-Iron (Iron Polysaccharides Complex) 150 Mg Capsule 150 Mg PO BID MDD 1 Oxycodone Hcl Immed.release (Oxycodone Hcl) 5 Mg Tablet 10 Mg PO PRN Q4HRS PRN MDD 1 Reported Novolog Flexpen (Insulin Aspart) 100 Unit/1 Ml Insuln.pen 30 SQ TIDWMEALS Aspirin 325 Mg Tablet 0.5 Tab PO DAILY Senna-S Tablet (Sennosides/Docusate Sodium) 1 Each Tablet 1 Each PO BID Nyamyc (Nystatin) 15 Gm Powder 15 Gm TP DAILY Culturelle (Lactobacillus Rhamnosus Gg) 1 Each Capsule 1 Each PO BIDWMEALS Lantus Solostar (Insulin Glargine,Hum.rec.anlog) 100 Unit/1 Ml Insuln.pen 45 Unit SQ QHS Cvs Glucosamine-Chondr Tablet (Glucosamine Hcl/Chondr [place] A Na) 1 Each Tablet 2 Each PO DAILY Flonase Allergy Relief (Fluticasone Propionate) 9.9 Ml [place].susp 2 Sprays NS DAILY Diphenhydramine Hcl 50 Mg Capsule 25 Mg PO Q6HRS PRN Vitamin D3 (Cholecalciferol (Vitamin D3)) 1,000 Unit Tablet 2,000 Unit PO DAILY Atorvastatin Calcium 20 Mg Tablet DAILY Furosemide 20 Mg Tablet 40 Mg BID Lisinopril 40 Mg Tablet 40 DAILY Carvedilol 25 Mg Tablet 25 BID Pantoprazole Sodium (Pantoprazole Sodium) 40 Mg Tablet.dr DAILY Allergies Allergies: Coded Allergies: cefuroxime (Verified Allergy, Intermediate, 11/02/18) piperacillin (Verified Adverse Reaction, Intermediate, RASH, 11/02/18) TOLERATED ERTAPENEM tazobactam (Verified Adverse Reaction, Intermediate, RASH, 11/02/18) TOLERATED ERTAPENEM zolpidem (Verified Adverse Reaction, Intermediate, HALLUCINATIONS, 11/02) glipizide (Verified Adverse Reaction, Mild, SENSITIVITY TO SUN, 11/02/18) Uncoded Allergies: DUST (Allergy, Mild, SNEEZING, 10/25/15) ROS Review of System Constitutional: Denies fever or chills Eyes: Denies any visual disturbances HENT: Denies nasal congestion or sore throat Respiratory: Denies cough or shortness of breath Cardiovascular: Denies any palpitations or chest pain GI: Denies abdominal pain, nausea, vomiting, bloody stools or diarrhea : Denies dysuria or hematuria Musculoskeletal: As per HPI Integument: As per HPI Neurologic: No gross deficits Endocrine: Diabetes Physical Exam Physical Exam Gen.: Alert and oriented -3. Cardiac: Heart rate regular. Normal carotid pulses. Lungs: Nonlabored respirations. Abdomen: Obese, Soft, nontender, nondistended, no palpable masses. Extremities: 2+ palpable radial pulses. 2+ bilateral femoral and PT pulses, monophasic doppler signal bilateral DP Mild eft arm swelling, hand is warm, motor function intact. Skin: Multiple areas of calf and whalen skin discoloration and scaring, superfi cial ulcers right first toe and left medial TMA stump. No swelling erythema or drainage. Neurological: Motor intact, decreased sensation to light touch. Vitals VITALS Vital Signs Date Time Temp Pulse Resp B/P (MAP) Pulse Ox O2 Delivery O2 Flow Rate FiO2 10/25/19 08:40 79 151/70 10/25/19 07:30 Room Air 10/25/19 07:29 99 10/25/19 07:00 98.2 18 98.2 Labs Labs Laboratory Tests Test 10/23/19 10:59 10/23/19 12:48 10/23/19 16:34 10/23/19 21:07 Glucose (Fingerstick) 68 mg/dL (70-99) 66 mg/dL (70-99) 139 mg/dL (70-99) 89 mg/dL (70-99) Test 10/24/19 04:00 10/24/19 07:53 10/24/19 10:32 10/24/19 12:00 C-Reactive Protein, Quantitative 104.5 mg/L (0-3.3) Glucose (Fingerstick) 140 mg/dL (70-99) 259 mg/dL (70-99) Red Blood Count 3.13 x10^6/uL (4.30-5.70) Absolute Reticulocyte Count 0.042 x10^6/uL (0.020-0.120) Percent Reticulocyte Count 1.3 % (0.5-2.3) Immature Reticulocyte Fraction 0.53 (0.20-0.60) Sodium Level 141 mmol/L (136-145) Potassium Level 4.0 mmol/L (3.5-5.1) Chloride Level 105 mmol/L (98-107) Carbon Dioxide Level 28 mmol/L (21-32) Anion Gap 8 (6-14) Blood Urea Nitrogen 23 mg/dL (8-26) Creatinine 1.5 mg/dL (0.7-1.3) Estimated GFR (Cockcroft-Gault) 46.0 Glucose Level 202 mg/dL (70-99) Calcium Level 8.3 mg/dL (8.5-10.1) Iron Level 13 ug/dL (65-175) Total Iron Binding Capacity 145 ug/dL (250-450) Iron Saturation 9 % (15-34) Ferritin 203 ng/mL (26-388) Troponin I Quantitative 0.041 ng/mL (0.000-0.055) Test 10/24/19 16:43 10/24/19 17:01 10/24/19 19:31 10/25/19 01:50 Glucose (Fingerstick) 55 mg/dL (70-99) 91 mg/dL (70-99) 190 mg/dL (70-99) Urine Collection Type Unknown Urine Color Yellow Urine Clarity Clear Urine pH 5.0 (<5.0-8.0) Urine Specific Isabella 1.015 (1.000-1.030) Urine Protein Negative mg/dL (NEG-TRACE) Urine Glucose (UA) Negative mg/dL (NEG) Urine Ketones (Stick) Negative mg/dL (NEG) Urine Blood Negative (NEG) Urine Nitrite Negative (NEG) Urine Bilirubin Negative (NEG) Urine Urobilinogen Dipstick 0.2 mg/dL (0.2 mg/dL) Urine Leukocyte Esterase Negative (NEG) Urine RBC Occ /HPF (0-2) Urine WBC Occ /HPF (0-4) Urine Squamous Epithelial Cells Occ /LPF Urine Bacteria 0 /HPF (0-FEW) Urine Hyaline Casts Few /HPF Urine Mucus Mod /LPF Test 10/25/19 07:13 Glucose (Fingerstick) 154 mg/dL (70-99) Laboratory Tests Test 10/24/19 10:32 10/24/19 12:00 10/24/19 16:43 10/24/19 17:01 Glucose (Fingerstick) 259 mg/dL (70-99) 55 mg/dL (70-99) 91 mg/dL (70-99) Red Blood Count 3.13 x10^6/uL (4.30-5.70) Absolute Reticulocyte Count 0.042 x10^6/uL (0.020-0.120) Percent Reticulocyte Count 1.3 % (0.5-2.3) Immature Reticulocyte Fraction 0.53 (0.20-0.60) Sodium Level 141 mmol/L (136-145) Potassium Level 4.0 mmol/L (3.5-5.1) Chloride Level 105 mmol/L (98-107) Carbon Dioxide Level 28 mmol/L (21-32) Anion Gap 8 (6-14) Blood Urea Nitrogen 23 mg/dL (8-26) Creatinine 1.5 mg/dL (0.7-1.3) Estimated GFR (Cockcroft-Gault) 46.0 Glucose Level 202 mg/dL (70-99) Calcium Level 8.3 mg/dL (8.5-10.1) Iron Level 13 ug/dL (65-175) Total Iron Binding Capacity 145 ug/dL (250-450) Iron Saturation 9 % (15-34) Ferritin 203 ng/mL (26-388) Troponin I Quantitative 0.041 ng/mL (0.000-0.055) Test 10/24/19 19:31 10/25/19 01:50 10/25/19 07:13 Glucose (Fingerstick) 190 mg/dL (70-99) 154 mg/dL (70-99) Urine Collection Type Unknown Urine Color Yellow Urine Clarity Clear Urine pH 5.0 (<5.0-8.0) Urine Specific Isabella 1.015 (1.000-1.030) Urine Protein Negative mg/dL (NEG-TRACE) Urine Glucose (UA) Negative mg/dL (NEG) Urine Ketones (Stick) Negative mg/dL (NEG) Urine Blood Negative (NEG) Urine Nitrite Negative (NEG) Urine Bilirubin Negative (NEG) Urine Urobilinogen Dipstick 0.2 mg/dL (0.2 mg/dL) Urine Leukocyte Esterase Negative (NEG) Urine RBC Occ /HPF (0-2) Urine WBC Occ /HPF (0-4) Urine Squamous Epithelial Cells Occ /LPF Urine Bacteria 0 /HPF (0-FEW) Urine Hyaline Casts Few /HPF Urine Mucus Mod /LPF Images Images Foot Xray IMPRESSION: 1. Previous amputation. 2. Small erosions. 3. MRI could be of benefit to evaluate for osteomyelitis. Left arm venous US Impression: 1. Left upper extremity veins are patent, no thrombus demonstrated. Arterial US Grayscale images of the right and left lower extremity arterial vessels demonstrate moderate diffuse plaque. The bilateral profunda femoris were not well visualized. Bilateral peroneal arteries were not well visualized. On the right side there is likely a greater than 50% stenosis involving the mid SFA. There is one-vessel runoff below the knee and the anterior tibial artery is not visualized. On the left side there is no significant focal obstruction identified with mostly triphasic and biphasic waveforms throughout the left leg. Critical Notification Critical Value: No <Conclusion> 1. 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 No significant left-sided arterial disease with two-vessel runoff Assessment/Plan Assessment/Plan 74-year-old male with multiple medical problems admitted with left arm swelling and peripheral vascular disease with bilateral superficial foot ulcerations. Agree with Dr. Betancourt that his arterial ultrasound and physical examination suggest adequate arterial flow to heal foot wounds. Would not recommend any additional arterial intervention or testing. Would recommend continue local wound care and offloading. Will defer any surgical debridement or further imaging to Dr. Horton. Local wound care per wound care team. Antibiotics per ID. Will discuss history and physical examination with vascular surgeon and make additional recommendations as needed. Thank you for the opportunity to participate in this patient's care. CAROL SALGUERO APRN Oct 25, 2019 10:12
[2019-10-25 11:00] VITALS: BP 154/76
--- NOTE | 2019-10-25 11:25 | PDOC ---
DANETTE LONG [employer] 10/25/19 1125: CARDIO Progress Notes Date and Time Date of Service 10/25/19 Time of Evaluation 1115 Subjective Subjective: No Chest Pain, No shortness of breath, No Palpitations, Other (confused ) Vitals Vitals Vital Signs Date Time Temp Pulse Resp B/P (MAP) Pulse Ox O2 Delivery O2 Flow Rate FiO2 10/25/19 08:40 79 151/70 10/25/19 07:30 Room Air 10/25/19 07:29 99 10/25/19 07:00 98.2 18 98.2 Weight Weight [ ] Input and Output Intake and Output Intake and Output 10/25/19 07:00 Intake Total 2650 ml Output Total 225 ml Balance 2425 ml Intake Oral 2650 ml Output Urine Total 225 ml # Voids 10 # Bowel Movements 2 Laboratory Labs Laboratory Tests Test 10/24/19 12:00 10/24/19 16:43 10/24/19 17:01 10/24/19 19:31 Red Blood Count 3.13 x10^6/uL (4.30-5.70) Absolute Reticulocyte Count 0.042 x10^6/uL (0.020-0.120) Percent Reticulocyte Count 1.3 % (0.5-2.3) Immature Reticulocyte Fraction 0.53 (0.20-0.60) Sodium Level 141 mmol/L (136-145) Potassium Level 4.0 mmol/L (3.5-5.1) Chloride Level 105 mmol/L (98-107) Carbon Dioxide Level 28 mmol/L (21-32) Anion Gap 8 (6-14) Blood Urea Nitrogen 23 mg/dL (8-26) Creatinine 1.5 mg/dL (0.7-1.3) Estimated GFR (Cockcroft-Gault) 46.0 Glucose Level 202 mg/dL (70-99) Calcium Level 8.3 mg/dL (8.5-10.1) Iron Level 13 ug/dL (65-175) Total Iron Binding Capacity 145 ug/dL (250-450) Iron Saturation 9 % (15-34) Ferritin 203 ng/mL (26-388) Troponin I Quantitative 0.041 ng/mL (0.000-0.055) Glucose (Fingerstick) 55 mg/dL (70-99) 91 mg/dL (70-99) 190 mg/dL (70-99) Test 10/25/19 01:50 10/25/19 07:13 Urine Collection Type Unknown Urine Color Yellow Urine Clarity Clear Urine pH 5.0 (<5.0-8.0) Urine Specific Powers 1.015 (1.000-1.030) Urine Protein Negative mg/dL (NEG-TRACE) Urine Glucose (UA) Negative mg/dL (NEG) Urine Ketones (Stick) Negative mg/dL (NEG) Urine Blood Negative (NEG) Urine Nitrite Negative (NEG) Urine Bilirubin Negative (NEG) Urine Urobilinogen Dipstick 0.2 mg/dL (0.2 mg/dL) Urine Leukocyte Esterase Negative (NEG) Urine RBC Occ /HPF (0-2) Urine WBC Occ /HPF (0-4) Urine Squamous Epithelial Cells Occ /LPF Urine Bacteria 0 /HPF (0-FEW) Urine Hyaline Casts Few /HPF Urine Mucus Mod /LPF Glucose (Fingerstick) 154 mg/dL (70-99) Physical Exam HEENT: Neck Supple W Full Motion Chest: Symmetric LUNGS: Other (diminished bases) Heart: RRR Abdomen: Soft N/T, Other (obese) Extremities: Other (trace LE edema. Left TMA. multiple scabbed nonhealing wounds on his legs. ) Neurology: alert, follow commands, confused Assessment Assessment 1. Moderate PAD; no critical limb ischemia. 2. Chronic non-healing wounds 3. Chronic diastolic heart failure; echo with preserved LV systolic function. appear compensated 4. Hypertension; mildly elevated 5. Hyperlipidemia; stain 6 . Diabetes, II 7. CKD; Cr stable per review 8. Anemia, iron def 9. Fevers 10. Encephalopathy Recommendations Secondary prevention Local wound care Increase Norvasc for better BP control Supportive care Further workup of fevers as per ID Justicifation of Admission Dx: Justifications for Admission: Justification of Admission Dx: Yes HALIE RUSSELL MD 10/25/19 1734: CARDIO Progress Notes Plan Plan Patient seen and examined. Agree with above nurse practitioner note. Supportive care. Appreciate vascular surgery input, no indication for arterial intervention at this time. DANETTE LONG APRN Oct 25, 2019 11:25 HALIE RUSSELL MD Oct 25, 2019 17:34
[2019-10-25] MEDS ORDERED: ACETAMINOPHEN 325 MG TABLET. PO PRN (11:30)
--- NOTE | 2019-10-25 11:35 | NUR ---
SS following for discharge planning. SS reviewed pt chart and discussed with pt RN. Pt is from home with spouse and is currently on room air. PT/OT ordered. COVID19 negative. Pt's son contacted floor and reported that referral for jail unit needs to be sent to [facility], ; fax [phone]. SS contacted [facility] and notified. SS currently awaiting PT/OT evaluations and will send referral once received. Pt does have [employer] and will need insurance authorization if accepted. SS will continue to follow for discharge planning.
--- NOTE | 2019-10-25 12:49 | PDOC ---
[employer] PROGRESS NOTE Date of Service DOS: DATE: 10/25/19 TIME: 12:48 Chief Complaint Chief Complaint Foot wound Debility History of Present Illness History of Present Illness 10/25/2019 Patient seen and examined We are considering getting him to a assisted unit today but he just spiked a fever 102.1 Discussed with RN Discussed with case management Chart reviewed History of Present Illness Mr. Herrera is a 74 year old male admti with mult problems. poor self care. Left arm swelling for a week. 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 he has a rash on his groin from sitting in his own urine at home thurman placed here and he complains of burning pain from the cath, he says he has $1400 prosthetic shoes for his amp foot , but doesnt know where they are, possibly here. . Vitals/I&O Vitals/I&O: Vital Signs Date Time Temp Pulse Resp B/P (MAP) Pulse Ox O2 Delivery O2 Flow Rate FiO2 10/25/19 11:00 102.1 93 20 154/76 (102) 95 Room Air 102.1 I & O 10/24/19 10/24/19 10/25/19 15:00 23:00 07:00 Intake Total 2560 ml 90 ml Output Total 225 ml Balance 2560 ml -135 ml Physical Exam Physical Exam: GENERAL: The patient is propped up in bed, alert, and smiling HEENT: Pupils are equally round. Oropharynx, pink and moist. No lesions seen. NECK: Supple. LUNGS: Clear to auscultation. No accessory muscle use. HEART: S1 and S2. ABDOMEN: Obese, soft, nontender with bowel sounds present. Obese, Mild yeast on pannus/groin area. EXTREMITIES: No gross edema or cyanosis. Left arm is slightly swollen and warm. He has multiple scabs. No redness noted. He did not have any axillary lymph nodes palpable. SKIN: Warm to touch. No signs of generalized rash. He has small scabs to his right great toe and a fairly superficial appearing ulcer on the distal left TMA without evidence of infection. Distal pulses palpable. He has some scratch luna on his left whalen. NEUROLOGIC: Alert and answers simple questions appropriately, but is a poor historian General: Alert, Oriented X3, Cooperative Heart: Regular rate, Normal S1, Normal S2 Lungs: Clear Abdomen: Normal bowel sounds, Soft, No tenderness, No hepatosplenomegaly, Other (Obese) Extremities: Other (The transmetatarsal amputation has superficial ulceration. There is minimal swelling, I do not see evidence of osteomyelitis clinically.) Skin: Other (left toe 1X1 ulcer, left foot stump 3x3 lesions, rash to groin with excoriations, mult small lesions are arms that he blames on his cat, but looks small and circular, ) Labs Labs: Laboratory Tests Test 10/24/19 16:43 10/24/19 17:01 10/24/19 19:31 10/25/19 01:50 Glucose (Fingerstick) 55 mg/dL (70-99) 91 mg/dL (70-99) 190 mg/dL (70-99) Urine Collection Type Unknown Urine Color Yellow Urine Clarity Clear Urine pH 5.0 (<5.0-8.0) Urine Specific [place] 1.015 (1.000-1.030) Urine Protein Negative mg/dL (NEG-TRACE) Urine Glucose (UA) Negative mg/dL (NEG) Urine Ketones (Stick) Negative mg/dL (NEG) Urine Blood Negative (NEG) Urine Nitrite Negative (NEG) Urine Bilirubin Negative (NEG) Urine Urobilinogen Dipstick 0.2 mg/dL (0.2 mg/dL) Urine Leukocyte Esterase Negative (NEG) Urine RBC Occ /HPF (0-2) Urine WBC Occ /HPF (0-4) Urine Squamous Epithelial Cells Occ /LPF Urine Bacteria 0 /HPF (0-FEW) Urine Hyaline Casts Few /HPF Urine Mucus Mod /LPF Test 10/25/19 07:13 10/25/19 11:57 Glucose (Fingerstick) 154 mg/dL (70-99) 68 mg/dL (70-99) Assessment and Plan Assessmemt and Plan Problems Medical Problems: (1) Elevated troponin Status: Acute (2) Wound of foot Status: Acute Foot wounds New fevers HTN, Hyperlipidemia, Other Anemia NOS Depression Chronic renal insuff, Benign prostatic enlarg. Diabetes Plan IV antibiotics PRN Tylenol Cardiac monitoring Appreciate subspecialist input Home meds DVT prophylaxis Full code Long-term prognosis guarded Comment Review of Relevant I have reviewed the following items minnie (where applicable) has been applied. Medications: Current Medications Medications (Trade) Dose Ordered Sig/Beatrice Route PRN Reason Start Time Stop Time Status Last Admin Dose Admin Ampicillin Sodium/ Sulbactam Sodium 3 gm/Sodium Chloride 100 ml @ 200 mls/hr Q6HRS IV 10/24/19 16:30 10/25/19 11:59 Diphenhydramine HCl (Benadryl) 25 mg PRN Q6HRS PRN IVP ITCHING 10/24/19 16:00 10/25/19 11:58 Lactobacillus Rhamnosus (Culturelle) 1 cap BID PO 10/24/19 21:00 10/25/19 08:39 Acetaminophen (Tylenol) 650 mg PRN Q6HRS PRN PO FEVER > 100.5'F 10/25/19 11:30 10/25/19 11:57 Justicifation of Admission Dx: Justifications for Admission: Justification of Admission Dx: Yes ROHIT DAMON III DO Oct 25, 2019 12:49
--- NOTE | 2019-10-25 13:29 | NUR ---
SS following up with discharge planning. SS received phone contact from pt's son reporting that he spoke with his brother and they would like initial referral sent to [facility] and then second option of [facility]. PT/OT on hold today as pt has fever. SS will continue to follow for discharge planning.
--- NOTE | 2019-10-25 13:30 | NUR ---
Wound Care Wound Type/Assessment: See wound assessment. patient seen with JERICHO Naylor. patient has a right great toe- callous and a left TMA DFU. the areas were cleaned and assessed. See Cyndy's Progress note. The wounds were measured an pictured and redressed. Treatment Recommendations/Plan: Recommendations of a telfa dressing to the right great toe and a contact later with a foam dressing to the left TMA, change every 3 days. patient assessed from head to toe and no other wounds noted at this time, Wound Care will continue to f/u for changes, notified DIEGO Zelaya about the POC
[2019-10-25 15:00] VITALS: BP 126/60
--- NOTE | 2019-10-25 16:38 | PDOC2 ---
CONSULT Date of Consult Date of Consult DATE: 10/25/19 TIME: 12:21 Reason for Consult Reason for Consult: Right great toe diabetic foot ulcer and left foot diabetic foot ulcer Referring Physician Referring Physician: Dr. Zambrano History of Present Illness Reason for Visit: Patient admitted to [facility] with elevated troponin levels. Patient is a well-known patient to the wound care center with history of peripheral artery disease, and diabetic foot ulcers. Patient admitted to the hospital with a diabetic foot ulcer to his right great toe and the second diabetic foot ulcer to his left foot overlying the surgical scar from his past TMA. Past Medical History Cardiovascular: HTN, Hyperlipidemia, Other Pulmonary: Other Heme/Onc: Anemia NOS Psych: Depression Musculoskeletal: Other Renal/: Chronic renal insuff, Benign prostatic enlarg. Endocrine: Diabetes Past Surgical History Past Surgical History: Other Family History Family History: Diabetes, Hypertension Social History Social History Patient currently living at home, however states that he is trying to get into an assisted living. No ALCOHOL: none Drugs: None Lives: with Family Current Problem List Problem List Problems Medical Problems: (1) Elevated troponin Status: Acute (2) Wound of foot Status: Acute Current Medications Current Medications Current Medications Sodium Chloride 500 ml @ 500 mls/hr 1X ONCE IV Last administered on 10/22/19at 13:12; Start 10/22/19 at 13:00; Stop 10/22/19 at 13:59; Status DC Iohexol (Omnipaque 300 Mg/ml) 60 ml 1X ONCE IV Last administered on 10/22/19at 13:58; Start 10/22/19 at 13:45; Stop 10/22/19 at 13:47; Status DC Info (CONTRAST GIVEN -- Rx MONITORING) 1 each PRN DAILY PRN MC SEE COMMENTS; Start 10/22/19 at 14:00; Stop 10/24/19 at 13:59; Status DC Ondansetron HCl (Zofran) 4 mg PRN Q8HRS PRN IV NAUSEA/VOMITING; Start 10/22/19 at 15:30; Stop 10/23/19 at 15:29; Status DC Fentanyl Citrate (Fentanyl 2ml Vial) 50 mcg PRN Q1HR PRN IV PAIN Last administered on 10/22/19at 20:17; Start 10/22/19 at 15:30; Stop 10/23/19 at 15:29; Status DC Lorazepam (Ativan Inj) 1 mg PRN Q4HRS PRN IVP ANXIETY / AGITATION Last administered on 10/25/19 11:58; Start 10/22/19 at 17:45 Insulin Human Lispro (HumaLOG) 0-9 UNITS TIDWMEALS SQ Last administered on 10/25/19 08:49; Start 10/23/19 at 08:00 Dextrose (Dextrose 50%-Water Syringe) 12.5 gm PRN Q15MIN PRN IV SEE COMMENTS; Start 10/22/19 at 17:45 Phenazopyridine HCl (Pyridium) 200 mg 1X ONCE PO Last administered on 10/22/19 20:59; Start 10/22/19 at 19:45; Stop 10/22/19 at 19:48; Status DC Phenazopyridine HCl (Pyridium) 200 mg PRN TID PRN PO URINARY PAIN; Start 10/08 06/27 at 19:45 Morphine Sulfate (Morphine Sulfate) 4 mg PRN Q2HR PRN IV PAIN Last administered on 10/25/19 06:03; Start 10/22/19 at 19:45 Cyclobenzaprine HCl (Flexeril) 10 mg PRN Q6HRS PRN PO MUSCLE SPASMS Last administered on 10/25/19 00:19; Start 10/22/19 at 20:00 Albuterol Sulfate (Ventolin Neb Soln) 2.5 mg PRN Q4HRS PRN NEB SHORTNESS OF BREATH; Start 10/22/19 at 20:00 Amlodipine Besylate (Norvasc) 5 mg DAILY PO Last administered on 10/25/19 08:38; Start 10/23/19 at 09:00; Stop 10/25/19 at 15:20; Status DC Aspirin (Aspirin Chewable) 162 mg DAILY PO Last administered on 10/25/19 08:39; Start 10/23/19 at 09:00 Atorvastatin Calcium (Lipitor) 20 mg DAILY PO Last administered on 10/25/19 08:38; Start 10/23/19 at 09:00 Budesonide (Pulmicort) 0.5 mg RTBID NEB Last administered on 10/25/19 07:26; Start 10/22/19 at 20:00 Vitamin D (Vitamin D3) 2,000 unit DAILY PO Last administered on 10/25/19 08:39; Start 10/23/19 at 09:00 Furosemide (Lasix) 40 mg BID92 PO Last administered on 10/25/19 14:19; Start 10/23/19 at 09:00 Guaifenesin (Robitussin Dm) 10 ml PRN Q6HRS PRN PO COUGH, 1st CHOICE; Start 10/22/19 at 20:00 Hydralazine HCl (Apresoline) 50 mg TID PO Last administered on 10/25/19at 14:19; Start 10/22/19 at 21:00 Polysaccharide Iron Complex (Niferex 150) 150 mg BID PO Last administered on 10/25/19 08:37; Start 10/22/19 at 21:00 Lisinopril (Prinivil) 40 mg DAILY PO Last administered on 10/25/19 08:39; Start 10/23/19 at 09:00 Multivitamins (Thera M Plus) 1 tab DAILY PO Last administered on 10/25/19at 08:37; Start 10/23/19 at 09:00 Nystatin (Nystop) 1 ritu DAILY TP ; Start 10/23/19 at 09:00; Status Cancel Oxycodone HCl (Roxicodone) 10 mg PRN Q4HRS PRN PO SEVERE PAIN 7-10 Last administered on 10/25/19at 11:12; Start 10/22/19 at 20:00 Pantoprazole Sodium (Protonix) 40 mg DAILY PO Last administered on 10/25/19at 08:40; Start 10/23/19 at 09:00 Potassium Chloride (Klor-Con) 30 meq DAILYWBKFT PO Last administered on 10/25/19at 08:39; Start 10/23/19 at 08:00 Senna/Docusate Sodium (Senna Plus) 1 tab BID PO Last administered on 10/25/19 08:39; Start 10/22/19 at 21:00 Trimethoprim/ Sulfamethoxazole (Bactrim Ds) 1 tab BID PO ; Start 10/22/19 at 21:00; Stop 10/22/19 at 20:01; Status DC Carvedilol (Coreg) 25 mg BIDWMEALS PO Last administered on 10/25/19at 08:40; Start 10/23/19 at 08:00 Fluticasone Propionate (Flonase) 2 spray DAILY NS Last administered on 10/25/19at 08:37; Start 10/23/19 at 09:00 Insulin Human Lispro (HumaLOG) 30 units TIDWMEALS SQ Last administered on 10/23/19at 08:11; Start 10/23/19 at 08:00; Stop 10/23/19 at 12:59; Status DC Insulin Glargine (Lantus Syringe) 45 unit QHS SQ Last administered on 10/24/19at 22:28; Start 10/22/19 at 21:00 Nystatin (Nystop) 1 ritu BID TP Last administered on 10/25/19at 08:49; Start 10/22/19 at 21:00 Enoxaparin Sodium (Lovenox Per Pharmacy Prophylaxis Dosing) 1 each PRN DAILY PRN MC SEE COMMENTS; Start 10/22/19 at 20:00 Enoxaparin Sodium (Lovenox 60mg Syringe) 60 mg Q12HR SQ Last administered on 10/25/19at 08:40; Start 10/22/19 at 21:00 Insulin Human Lispro (HumaLOG) 18 units TIDWMEALS SQ Last administered on 10/25/19at 08:48; Start 10/23/19 at 17:00 Perflutren Protein Type A Microsphe (Optison) 0.66 mg STK-MED ONCE IV ; Start 10/24/19 at 13:11; Stop 10/24/19 at 13:11; Status DC Ampicillin Sodium/ Sulbactam Sodium 3 gm/Sodium Chloride 100 ml @ 200 mls/hr Q6HRS IV Last administered on 10/25/19at 11:59; Start 10/24/19 at 16:30 Diphenhydramine HCl (Benadryl) 25 mg PRN Q6HRS PRN IVP ITCHING Last administered on 10/25/19 11:58; Start 10/24/19 at 16:00 Lactobacillus Rhamnosus (Culturelle) 1 cap BID PO Last administered on 10/25/19at 08:39; Start 10/24/19 at 21:00 Acetaminophen (Tylenol) 650 mg PRN Q6HRS PRN PO FEVER > 100.5'F Last administered on 10/25/19at 11:57; Start 10/25/19 at 11:30 Amlodipine Besylate (Norvasc) 10 mg DAILY PO ; Start 10/26/19 at 09:00 Active Scripts Active Bactrim Ds Tablet (Sulfamethoxazole/Trimethoprim) 1 Each Tablet 1 Tab PO BID Klor-Con 10 (Potassium Chloride) 10 Meq Tablet.er 30 Meq PO DAILYWBKFT 7 Days Amlodipine Besylate 5 Mg Tablet 5 Mg PO DAILY Hydralazine Hcl 25 Mg Tablet 50 Mg PO TID Thera-M Tablet (Multivits,Ca,Minerals/Iron/Fa) 1 Each Tablet 1 Tab PO DAILY MDD 1 Budesonide 0.5 Mg/2 Ml Ampul.neb 0.5 Mg NEB RTBID MDD 1 Guaifenesin Dm Syrup (Guaifenesin/Dextromethorphan) 5 Ml Syrup 10 Ml PO PRN Q6HRS PRN MDD 1 Proair Hfa (Albuterol Sulfate) 8.5 Gm Hfa.aer.ad 2.5 Mg NEB PRN Q4HRS PRN MDD 1 Poly-Iron (Iron Polysaccharides Complex) 150 Mg Capsule 150 Mg PO BID MDD 1 Oxycodone Hcl Immed.release (Oxycodone Hcl) 5 Mg Tablet 10 Mg PO PRN Q4HRS PRN MDD 1 Reported Novolog Flexpen (Insulin Aspart) 100 Unit/1 Ml Insuln.pen 30 SQ TIDWMEALS Aspirin 325 Mg Tablet 0.5 Tab PO DAILY Senna-S Tablet (Sennosides/Docusate Sodium) 1 Each Tablet 1 Each PO BID Nyamyc (Nystatin) 15 Gm Powder 15 Gm TP DAILY Culturelle (Lactobacillus Rhamnosus Gg) 1 Each Capsule 1 Each PO BIDWMEALS Lantus Solostar (Insulin Glargine,Hum.rec.anlog) 100 Unit/1 Ml Insuln.pen 45 Unit SQ QHS Cvs Glucosamine-Chondr Tablet (Glucosamine Hcl/Chondr [place] A Na) 1 Each Tablet 2 Each PO DAILY Flonase Allergy Relief (Fluticasone Propionate) 9.9 Ml [place].susp 2 Sprays NS DA VALENTIN Diphenhydramine Hcl 50 Mg Capsule 25 Mg PO Q6HRS PRN Vitamin D3 (Cholecalciferol (Vitamin D3)) 1,000 Unit Tablet 2,000 Unit PO DAILY Atorvastatin Calcium 20 Mg Tablet DAILY Furosemide 20 Mg Tablet 40 Mg BID Lisinopril 40 Mg Tablet 40 DAILY Carvedilol 25 Mg Tablet 25 BID Pantoprazole Sodium (Pantoprazole Sodium) 40 Mg Tablet.dr DAILY Allergies Allergies: Coded Allergies: cefuroxime (Verified Allergy, Intermediate, 11/02/18) piperacillin (Verified Adverse Reaction, Intermediate, RASH, 11/02/18) TOLERATED ERTAPENEM tazobactam (Verified Adverse Reaction, Intermediate, RASH, 11/02/18) TOLERATED ERTAPENEM zolpidem (Verified Adverse Reaction, Intermediate, HALLUCINATIONS, 11/02/18) glipizide (Verified Adverse Reaction, Mild, SENSITIVITY TO SUN, 11/02/18) Uncoded Allergies: DUST (Allergy, Mild, SNEEZING, 10/25/15) ROS Review of System Patient asleep, difficult to arouse and is afebrile. ROS may be unreliable d/t pt's current status. Patient denies pain at this time. Patient denies nausea, vomiting or diarrhea. Physical Exam General: Alert, Oriented X3, Cooperative, No acute distress Lungs: Normal air movement Abdomen: Soft, No tenderness Skin: No rashes, Other (The left TMA reveals a 1.3 x 0.6 x 0.1 open ulceration. The surrounding tissue has callus formation. There is no surrounding erythema or edema. A sterile curette was used to debride the callus with minimal bleeding which was controlled with pressure. The right great toe reveals a one by one thickened callus. Sterile curette was used to remove callus following application of topical lidocaine to soften the callus. Minimal bleeding occurred which was controlled with pressure.) Vitals VITALS Vital Signs Date Time Temp Pulse Resp B/P (MAP) Pulse Ox O2 Delivery O2 Flow Rate FiO2 10/25/19 15:00 99.1 80 16 126/60 (82) 100 Room Air 99.1 Labs Labs Laboratory Tests Test 10/23/19 16:34 10/23/19 21:07 10/24/19 04:00 10/24/19 07:53 Glucose (Fingerstick) 139 mg/dL (70-99) 89 mg/dL (70-99) 140 mg/dL (70-99) C-Reactive Protein, Quantitative 104.5 mg/L (0-3.3) 25-Hydroxy Vitamin D Total 36.0 ng/mL (30-100) Test 10/24/19 10:32 10/24/19 12:00 10/24/19 16:43 10/24/19 17:01 Glucose (Fingerstick) 259 mg/dL (70-99) 55 mg/dL (70-99) 91 mg/dL (70-99) Red Blood Count 3.13 x10^6/uL (4.30-5.70) Absolute Reticulocyte Count 0.042 x10^6/uL (0.020-0.120) Percent Reticulocyte Count 1.3 % (0.5-2.3) Immature Reticulocyte Fraction 0.53 (0.20-0.60) Sodium Level 141 mmol/L (136-145) Potassium Level 4.0 mmol/L (3.5-5.1) Chloride Level 105 mmol/L (98-107) Carbon Dioxide Level 28 mmol/L (21-32) Anion Gap 8 (6-14) Blood Urea Nitrogen 23 mg/dL (8-26) Creatinine 1.5 mg/dL (0.7-1.3) Estimated GFR (Cockcroft-Gault) 46.0 Glucose Level 202 mg/dL (70-99) Calcium Level 8.3 mg/dL (8.5-10.1) Iron Level 13 ug/dL (65-175) Total Iron Binding Capacity 145 ug/dL (250-450) Iron Saturation 9 % (15-34) Ferritin 203 ng/mL (26-388) Troponin I Quantitative 0.041 ng/mL (0.000-0.055) Test 10/24/19 19:31 10/25/19 01:50 10/25/19 07:13 10/25/19 11:57 Glucose (Fingerstick) 190 mg/dL (70-99) 154 mg/dL (70-99) 68 mg/dL (70-99) Urine Collection Type Unknown Urine Color Yellow Urine Clarity Clear Urine pH 5.0 (<5.0-8.0) Urine Specific [place] 1.015 (1.000-1.030) Urine Protein Negative mg/dL (NEG-TRACE) Urine Glucose (UA) Negative mg/dL (NEG) Urine Ketones (Stick) Negative mg/dL (NEG) Urine Blood Negative (NEG) Urine Nitrite Negative (NEG) Urine Bilirubin Negative (NEG) Urine Urobilinogen Dipstick 0.2 mg/dL (0.2 mg/dL) Urine Leukocyte Esterase Negative (NEG) Urine RBC Occ /HPF (0-2) Urine WBC Occ /HPF (0-4) Urine Squamous Epithelial Cells Occ /LPF Urine Bacteria 0 /HPF (0-FEW) Urine Hyaline Casts Few /HPF Urine Mucus Mod /LPF Laboratory Tests Test 10/24/19 16:43 10/24/19 17:01 10/24/19 19:31 10/25/19 01:50 Glucose (Fingerstick) 55 mg/dL (70-99) 91 mg/dL (70-99) 190 mg/dL (70-99) Urine Collection Type Unknown Urine Color Yellow Urine Clarity Clear Urine pH 5.0 (<5.0-8.0) Urine Specific [place] 1.015 (1.000-1.030) Urine Protein Negative mg/dL (NEG-TRACE) Urine Glucose (UA) Negative mg/dL (NEG) Urine Ketones (Stick) Negative mg/dL (NEG) Urine Blood Negative (NEG) Urine Nitrite Negative (NEG) Urine Bilirubin Negative (NEG) Urine Urobilinogen Dipstick 0.2 mg/dL (0.2 mg/dL) Urine Leukocyte Esterase Negative (NEG) Urine RBC Occ /HPF (0-2) Urine WBC Occ /HPF (0-4) Urine Squamous Epithelial Cells Occ /LPF Urine Bacteria 0 /HPF (0-FEW) Urine Hyaline Casts Few /HPF Urine Mucus Mod /LPF Test 10/25/19 07:13 10/25/19 11:57 Glucose (Fingerstick) 154 mg/dL (70-99) 68 mg/dL (70-99) Assessment/Plan Assessment/Plan 1) Right great toe diabetic foot ulcer, resolved with overlying callus formation -Callus debrided at bedside. -Patient with custom fitted diabetic foot wear. - Primary care addressing diabetic control - Dietary consulting to ensure adequate protein intake for optimal wound healing 2) left TMA diabetic foot ulcer - No s/s of infection at this time -Callus debrided at bedside - Arterial Doppler 1. 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 No significant left-sided arterial disease with two- vessel runoff - Patient with custom fitted diabetic foot wear. - Primary care addressing diabetic control - Dietary consulting to ensure adequate protein intake for optimal wound healing CLINT ACE RIGGER Oct 25, 2019 16:38
--- NOTE | 2019-10-25 16:51 | NUR ---
Review and agree with dietary internship documentation and have made changes as necessary
[2019-10-25 19:00] VITALS: BP 176/65
[2019-10-25 23:00] VITALS: BP 140/72
[2019-10-26] MEDS: AMPICILLIN/SULBACTAM 3 GM in IV NORMAL SALINE 100ML 100 ML IV SCH ×3 (01:12→12:21)
[2019-10-26] MEDS: INSULIN GLARGINE SYRINGE. SQ SCH ×2 (01:13→22:42)
[2019-10-26 03:00] VITALS: BP 150/72
[2019-10-26] MEDS: diphenhydrAMINE 50 MG/ML VIAL IVP PRN ×2 (03:08→06:28)
[2019-10-26] MEDS: MORPHINE SULFATE 4 MG/ML VIAL. IV PRN ×2 (03:09→06:14)
[2019-10-26 07:00] VITALS: BP 154/66
[2019-10-26] MEDS: BUDESONIDE 0.5 MG/2 ML NEBU. NEB SCH ×2 (07:58→19:27)
[2019-10-26] MEDS: INSULIN LISPRO 300 UNITS/3 ML VIAL. SQ SCH ×6 (08:00→17:30)
--- NOTE | 2019-10-26 08:36 | PDOC ---
Infectious Disease Note Subjective Subjective Sleepy. S/p Benadryl. C/o itch all over No F/C/S/N/V/D/SOA/rash Vital Sign Vital Signs Vital Signs Date Time Temp Pulse Resp B/P (MAP) Pulse Ox O2 Delivery O2 Flow Rate FiO2 10/26/19 08:00 98 Room Air 10/26/19 07:00 98.6 83 16 154/66 (95) 98.6 Physical Exam PHYSICAL EXAM GENERAL: The patient is propped up in a chair, arousable HEENT: Pupils are equally round. Oropharynx, pink and moist. No lesions seen. NECK: Supple. LUNGS: Clear to auscultation. No accessory muscle use. HEART: S1 and S2. ABDOMEN: Obese, soft, nontender with bowel sounds present. Obese, Mild yeast on pannus/groin area. EXTREMITIES: No gross edema or cyanosis. Left arm is slightly swollen and warm. He has multiple scabs. No redness noted. He did not have any axillary lymph nodes palpable. SKIN: Warm to touch. No signs of generalized rash. He has small scabs to his right great toe and a fairly superficial appearing ulcer on the distal left TMA without evidence of infection. Distal pulses palpable. He has some scratch luna on his left whalen. NEUROLOGIC: Alert but mumbling this am, but is a poor historian Labs Lab Laboratory Tests Test 10/25/19 11:57 10/25/19 16:58 10/25/19 22:18 10/26/19 07:34 Glucose (Fingerstick) 68 mg/dL (70-99) 70 mg/dL (70-99) 170 mg/dL (70-99) 140 mg/dL (70-99) Micro AORTIC VALVE The aortic valve is not well visualized. Doppler and Color Flow revealed no significant aortic regurgitation. There is no significant aortic valvular stenosis. MITRAL VALVE Not well visualized. There is no mitral valve stenosis. Doppler and Color Flow revealed no mitral valve regurgitation noted. TRICUSPID VALVE Not well visualized. Doppler and Color Flow revealed no tricuspid valve regurgitation noted. There is no tricuspid valve stenosis. PULMONIC VALVE The pulmonic valve is not well visualized. Doppler and Color Flow revealed no pulmonic valvular regurgitation. There is no pulmonic valvular stenosis. Objective Assessment 1. Fever and chills.- up again. mild elevation of Procal but Cr elevated 2. Arthralgia. 3. Cat scratches. 4. Chronic nonhealing wounds, lower extremities. No clinical evidence of infection. 5. ANTIBIOTIC ALLERGIES TO ZOSYN AND CEFUROXIME, REACTION UNKNOWN. 6. Peripheral vascular disease.arterial doppler per Card 7. Diabetes with peripheral neuropathy. 8. DIAMOND on Chronic kidney disease. 9. Morbid obesity. 10. Hypertension. Constipation Plan Plan of Care STAT CBC with diff/CMP/Procalcitonin/CRP done this am and reviewed Fever etiology unclear - returned again - add Bartonella titers IV Doxy with Encephalopathy D/c Benadryl with Encephalopathy superficial abrasions on both foot no evidence of OM Cat scratches on LUE, no gross evidence of cellulitis or abscess on todays exam DM with neuropathy PAD per card/Vacular DIAMOND per primary Discont unasyn -dose meropenem Monitor closely Stop if any reactions D/w nursing LAURI MO MD Oct 26, 2019 08:36
[2019-10-26] MEDS: LISINOPRIL 20 MG TABLET PO SCH (08:44)
[2019-10-26] MEDS: POTASSIUM CHLORIDE 10 MEQ TABLET.ER. PO SCH (08:44)
[2019-10-26] MEDS: CHOLECALCIFEROL (VITAMIN D3) 1,000 UNIT TABLET PO SCH (08:44)
[2019-10-26] MEDS: PANTOPRAZOLE 40 MG TABLET.DR. PO SCH (08:45)
[2019-10-26] MEDS: amLODIPine BESYLATE 10 MG TABLET PO SCH (08:45)
[2019-10-26] MEDS: LACTOBACILLUS RHAMNOSUS GG 1 CAPSULE. PO SCH ×2 (08:45→22:23)
[2019-10-26] MEDS: IRON POLYSACCHARIDE COMPLEX 150 MG CAPSULE PO SCH ×2 (08:46→22:21)
[2019-10-26] MEDS: ATORVASTATIN CALCIUM 20 MG TABLET PO SCH (08:46)
[2019-10-26] MEDS: SENNOSIDES/DOCUSATE 8.6/50MG TABLET. PO SCH ×2 (08:46→22:21)
[2019-10-26] MEDS: ASPIRIN CHEWABLE 81 MG TABLET. PO SCH (08:46)
[2019-10-26] MEDS: CARVEDILOL 12.5 MG TABLET. PO SCH ×2 (08:46→17:27)
[2019-10-26] MEDS: MULTIVITAMIN I-VITE TABLET. PO SCH (08:46)
[2019-10-26] MEDS: FUROSEMIDE 40 MG TABLET. PO SCH ×2 (08:46→13:28)
[2019-10-26] MEDS: MULTIVITAMIN with MINERAL TABLET. PO SCH (08:46)
[2019-10-26 09:21] LABS: BASO % 0 % (0-3); EOS # 0.2 x10^3/uL (0.0-0.7); EOS % 2 % (0-3); HEMOGLOBIN 8.1 g/dL (13.0-17.5); LYMPH # 0.9 x10^3/uL (1.0-4.8); LYMPH % 8 % (24-48); MEAN CORPUSCULAR HEMOGLOBIN 27 pg (25-35); MEAN CORPUSCULAR HGB CONC 33 g/dL (31-37); MEAN CORPUSCULAR VOLUME 84 fL (79-100); MONO # 1.1 x10^3/uL (0.0-1.1); MONO % 10 % (0-9); NEUT # 8.6 x10^3/uL (1.8-7.7); NEUT % 79 % (31-73); PLATELET COUNT 259 x10^3/uL (140-400); RED BLOOD COUNT 2.96 x10^6/uL (4.30-5.70); RED CELL DISTRIBUTION WIDTH 15.6 % (11.5-14.5); WHITE BLOOD COUNT 10.9 x10^3/uL (4.0-11.0)
[2019-10-26] MEDS: NYSTATIN TOPICAL POWDER 15GM BOTTLE. TP SCH ×2 (09:28→22:23)
[2019-10-26] MEDS: FLUTICASONE 50MCG/NASAL SPRAY 16GM BOTTLE. NS SCH (09:28)
[2019-10-26 09:32] LABS: CALCIUM 8.4 mg/dL (8.5-10.1); CREATININE 1.7 mg/dL (0.7-1.3); GFR 39.8; POTASSIUM 3.6 mmol/L (3.5-5.1)
[2019-10-26 09:40] LABS: ALBUMIN/GLOBULIN RATIO 0.4 (1.0-1.7); TOTAL BILIRUBIN 0.4 mg/dL (0.2-1.0); TOTAL PROTEIN 6.8 g/dL (6.4-8.2)
[2019-10-26 11:00] VITALS: BP 111/54
--- NOTE | 2019-10-26 11:06 | NUR ---
SS following up with discharge planning. SS reviewed pt chart and discussed with pt RN. Pt is currently on room air. Pt on IV Ampicillin. PT/OT recommended correction unit. COVID19 negative. SS phoned and faxed referral to [facility], ; fax [phone], and [facility], ; fax [phone]. SS will await acceptance decision and insurance determination and will proceed accordingly with discharge planning.
--- NOTE | 2019-10-26 11:47 | PDOC ---
[employer] PROGRESS NOTE Date of Service DOS: DATE: 10/26/19 TIME: 11:34 Chief Complaint Chief Complaint Foot wound Debility History of Present Illness History of Present Illness 10/26/19 Pt seen and examined PT/OT in the room during encounter Pt pleasantly confused, NAD Left foot dressing changed 10/25/19 - no apparent erythema, or sign of infection Chart reviewed Discussed with RN 10/25/2019 Patient seen and examined We are considering getting him to a snf unit today but he just spiked a fever 102.1 Discussed with RN Discussed with case management Chart reviewed History of Present Illness Mr. Herrera is a 74 year old male admti with mult problems. poor self care. Left arm swelling for a week. 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 he has a rash on his groin from sitting in his own urine at home thurman placed here and he complains of burning pain from the cath, he says he has $1400 prosthetic shoes for his amp foot , but doesnt know where they are, possibly here. . Vitals/I&O Vitals/I&O: Vital Signs Date Time Temp Pulse Resp B/P (MAP) Pulse Ox O2 Delivery O2 Flow Rate FiO2 10/26/19 11:00 97.7 75 16 111/54 (73) 98 Room Air 97.7 I & O 10/25/19 10/25/19 10/26/19 15:00 23:00 07:00 Intake Total 300 ml 840 ml Balance 300 ml 840 ml Physical Exam Physical Exam: GENERAL: The patient is propped up in bed, alert, and smiling HEENT: Pupils are equally round. Oropharynx, pink and moist. No lesions seen. NECK: Supple. LUNGS: Clear to auscultation. No accessory muscle use. HEART: S1 and S2. ABDOMEN: Obese, soft, nontender with bowel sounds present. Obese, Mild yeast on pannus/groin area. EXTREMITIES: No gross edema or cyanosis. Left arm is slightly swollen and warm. He has multiple scabs. No redness noted. He did not have any axillary lymph nodes palpable. SKIN: Warm to touch. No signs of generalized rash. He has small scabs to his right great toe and a fairly superficial appearing ulcer on the distal left TMA without evidence of infection. Distal pulses palpable. He has some scratch luna on his left whalen. NEUROLOGIC: Alert and answers simple questions appropriately, but is a poor historian General: Cooperative, No acute distress Heart: Regular rate, Normal S1, Normal S2 Lungs: Clear Abdomen: Soft, No tenderness Extremities: No cyanosis, Other (The transmetatarsal amputation has superficial ulceration. There is minimal swelling, I do not see evidence of osteomyelitis clinically.) Skin: Other (The left TMA reveals a 1.3 x 0.6 x 0.1 open ulceration. The surrounding tissue has callus formation. There is no surrounding erythema or edema. A sterile curette was used to debride the callus with minimal bleeding which was controlled with pressure. The right great toe reveals a one by one thickened callus. Sterile curette was used to remove callus following application of topical lidocaine to soften the callus. Minimal bleeding occurred which was controlled with pressure.) Labs Labs: Laboratory Tests Test 10/25/19 11:57 10/25/19 16:58 10/25/19 22:18 10/26/19 07:34 Glucose (Fingerstick) 68 mg/dL (70-99) 70 mg/dL (70-99) 170 mg/dL (70-99) 140 mg/dL (70-99) Test 10/26/19 08:45 White Blood Count 10.9 x10^3/uL (4.0-11.0) Red Blood Count 2.96 x10^6/uL (4.30-5.70) Hemoglobin 8.1 g/dL (13.0-17.5) Hematocrit 25.0 % (39.0-53.0) Mean Corpuscular Volume 84 fL (79-100) Mean Corpuscular Hemoglobin 27 pg (25-35) Mean Corpuscular Hemoglobin Concent 33 g/dL (31-37) Red Cell Distribution Width 15.6 % (11.5-14.5) Platelet Count 259 x10^3/uL (140-400) Neutrophils (%) (Auto) 79 % (31-73) Lymphocytes (%) (Auto) 8 % (24-48) Monocytes (%) (Auto) 10 % (0-9) Eosinophils (%) (Auto) 2 % (0-3) Basophils (%) (Auto) 0 % (0-3) Neutrophils # (Auto) 8.6 x10^3/uL (1.8-7.7) Lymphocytes # (Auto) 0.9 x10^3/uL (1.0-4.8) Monocytes # (Auto) 1.1 x10^3/uL (0.0-1.1) Eosinophils # (Auto) 0.2 x10^3/uL (0.0-0.7) Basophils # (Auto) 0.0 x10^3/uL (0.0-0.2) Sodium Level 140 mmol/L (136-145) Potassium Level 3.6 mmol/L (3.5-5.1) Chloride Level 102 mmol/L (98-107) Carbon Dioxide Level 29 mmol/L (21-32) Anion Gap 9 (6-14) Blood Urea Nitrogen 31 mg/dL (8-26) Creatinine 1.7 mg/dL (0.7-1.3) Estimated GFR (Cockcroft-Gault) 39.8 BUN/Creatinine Ratio 18 (6-20) Glucose Level 144 mg/dL (70-99) Calcium Level 8.4 mg/dL (8.5-10.1) Total Bilirubin 0.4 mg/dL (0.2-1.0) Aspartate Amino Transf (AST/SGOT) 17 U/L (15-37) Alanine Aminotransferase (ALT/SGPT) 17 U/L (16-63) Alkaline Phosphatase 85 U/L (46-116) C-Reactive Protein, Quantitative 181.1 mg/L (0-3.3) Total Protein 6.8 g/dL (6.4-8.2) Albumin 2.0 g/dL (3.4-5.0) Albumin/Globulin Ratio 0.4 (1.0-1.7) Procalcitonin 0.29 ng/mL (0.00-0.10) Review of Systems Review of Systems: Pt denies pain, pt denies weakness Assessment and Plan Assessmemt and Plan Problems Medical Problems: (1) Elevated troponin Status: Acute (2) Wound of foot Status: Acute ASSESSMENT Bilat distal LE wounds, secondary to chronic venous insufficiency HTN, Hyperlipidemia, Other Anemia NOS Depression Chronic renal insuff, Benign prostatic enlarg. Diabetes Plan IV antibiotics Wound care Awaiting BM Cardiac monitoring Home meds DVT prophylaxis Full code Discharge disposition pending - [facility] or [facility] [place] [facility] but he will eventually need long-term care Comment Review of Relevant I have reviewed the following items minnie (where applicable) has been applied. Medications: Current Medications Medications (Trade) Dose Ordered Sig/Beatrice Route PRN Reason Start Time Stop Time Status Last Admin Dose Admin Amlodipine Besylate (Norvasc) 10 mg DAILY PO 10/26/19 09:00 10/26/19 08:45 Multivitamins/ Minerals (I-Madalyn) 1 tab DAILY PO 10/26/19 09:00 10/26/19 08:46 Justicifation of Admission Dx: Justifications for Admission: Justification of Admission Dx: Yes ROHIT DAMON III DO Oct 26, 2019 11:47
[2019-10-26] MEDS ORDERED: DOCUSATE SODIUM 100 MG CAPSULE. PO PRN (12:00)
[2019-10-26] MEDS ORDERED: BISACODYL 5 MG TABLET.DR. PO PRN (12:00)
--- NOTE | 2019-10-26 12:37 | PDOC ---
Date of Service: DATE: 10/26/19 TIME: 12:35 Subjective: Subjective: No GI complaints. Objective: Objective: D/w nurse - confused, tried to eat blanket. Vital Signs: Vital Signs Date Time Temp Pulse Resp B/P (MAP) Pulse Ox O2 Delivery O2 Flow Rate FiO2 10/26/19 11:00 97.7 75 16 111/54 (73) 98 Room Air 97.7 Labs: Laboratory Tests Test 10/25/19 16:58 10/25/19 22:18 10/26/19 07:34 10/26/19 08:45 Glucose (Fingerstick) 70 mg/dL 170 mg/dL 140 mg/dL White Blood Count 10.9 x10^3/uL Red Blood Count 2.96 x10^6/uL Hemoglobin 8.1 g/dL Hematocrit 25.0 % Mean Corpuscular Volume 84 fL Mean Corpuscular Hemoglobin 27 pg Mean Corpuscular Hemoglobin Concent 33 g/dL Red Cell Distribution Width 15.6 % Platelet Count 259 x10^3/uL Neutrophils (%) (Auto) 79 % Lymphocytes (%) (Auto) 8 % Monocytes (%) (Auto) 10 % Eosinophils (%) (Auto) 2 % Basophils (%) (Auto) 0 % Neutrophils # (Auto) 8.6 x10^3/uL Lymphocytes # (Auto) 0.9 x10^3/uL Monocytes # (Auto) 1.1 x10^3/uL Eosinophils # (Auto) 0.2 x10^3/uL Basophils # (Auto) 0.0 x10^3/uL Sodium Level 140 mmol/L Potassium Level 3.6 mmol/L Chloride Level 102 mmol/L Carbon Dioxide Level 29 mmol/L Anion Gap 9 Blood Urea Nitrogen 31 mg/dL Creatinine 1.7 mg/dL Estimated GFR (Cockcroft-Gault) 39.8 BUN/Creatinine Ratio 18 Glucose Level 144 mg/dL Calcium Level 8.4 mg/dL Total Bilirubin 0.4 mg/dL Aspartate Amino Transf (AST/SGOT) 17 U/L Alanine Aminotransferase (ALT/SGPT) 17 U/L Alkaline Phosphatase 85 U/L C-Reactive Protein, Quantitative 181.1 mg/L Total Protein 6.8 g/dL Albumin 2.0 g/dL Albumin/Globulin Ratio 0.4 Procalcitonin 0.29 ng/mL Test 10/26/19 11:52 Glucose (Fingerstick) 178 mg/dL PE: GEN: NAD LUNGS: clear HEART: RRR ABD: large, non-tender NEURO/PSYCH: lethargic A/P: LOUISE/ACD - 'scoped in past, on PPI and iron -- Continue same per GI. Justicifation of Admission Dx: Justifications for Admission: Justification of Admission Dx: Yes MATT MARVIN Oct 26, 2019 12:37
[2019-10-26] MEDS: DOXYCYCLINE HYCLATE 100 MG in IV DEXTROSE 5% 100ML 100 ML IV SCH ×2 (13:28→22:22)
[2019-10-26] MEDS: oxyCODONE IR 5 MG TABLET PO PRN (14:01)
[2019-10-26 15:00] VITALS: BP 147/70
[2019-10-26] MEDS ORDERED: AMINO AC 3%/ELECTROLYTE/GLYCER 1,000 ML IV SCH (16:00)
[2019-10-26] MEDS: MEROPENEM 500 MG in IV NORMAL SALINE 50ML 50 ML IV SCH (17:48)
[2019-10-26 18:56] VITALS: BP 135/56
[2019-10-26 23:00] VITALS: BP 140/60
[2019-10-27 03:00] VITALS: BP 151/62
[2019-10-27] MEDS: MEROPENEM 500 MG in IV NORMAL SALINE 50ML 50 ML IV SCH ×3 (06:38→17:55)
[2019-10-27 07:00] VITALS: BP 142/53
[2019-10-27] MEDS: BUDESONIDE 0.5 MG/2 ML NEBU. NEB SCH ×2 (07:38→19:29)
[2019-10-27 07:39] LABS: BASO % 0 % (0-3); EOS # 0.2 x10^3/uL (0.0-0.7); EOS % 2 % (0-3); HEMATOCRIT 23.1 % (39.0-53.0); HEMOGLOBIN 7.5 g/dL (13.0-17.5); LYMPH % 9 % (24-48); MEAN CORPUSCULAR HEMOGLOBIN 28 pg (25-35); MEAN CORPUSCULAR HGB CONC 33 g/dL (31-37); MEAN CORPUSCULAR VOLUME 85 fL (79-100); MONO # 1.1 x10^3/uL (0.0-1.1); MONO % 9 % (0-9); NEUT # 9.5 x10^3/uL (1.8-7.7); NEUT % 80 % (31-73); PLATELET COUNT 268 x10^3/uL (140-400); RED BLOOD COUNT 2.73 x10^6/uL (4.30-5.70); RED CELL DISTRIBUTION WIDTH 15.5 % (11.5-14.5); WHITE BLOOD COUNT 11.8 x10^3/uL (4.0-11.0)
[2019-10-27] MEDS: INSULIN LISPRO 300 UNITS/3 ML VIAL. SQ SCH ×6 (08:00→17:00)
[2019-10-27 08:11] LABS: ALBUMIN 1.9 g/dL (3.4-5.0); ALBUMIN/GLOBULIN RATIO 0.4 (1.0-1.7); CALCIUM 8.7 mg/dL (8.5-10.1); CREATININE 1.9 mg/dL (0.7-1.3); POTASSIUM 3.8 mmol/L (3.5-5.1); TOTAL BILIRUBIN 0.2 mg/dL (0.2-1.0); TOTAL PROTEIN 6.7 g/dL (6.4-8.2)
--- NOTE | 2019-10-27 08:47 | PDOC ---
Infectious Disease Note Subjective Subjective C/o itch but less. Has low back pain L > R No F/C/S/N/V/D/SOA/rash ROS ROS o/w neg Vital Sign Vital Signs Vital Signs Date Time Temp Pulse Resp B/P (MAP) Pulse Ox O2 Delivery O2 Flow Rate FiO2 10/27/19 07:38 99 Room Air 10/26/19 23:00 98.8 90 20 140/60 (86) 98.8 10/26/19 20:00 2.0 Physical Exam PHYSICAL EXAM GENERAL: The patient is in bed and has been rolled for brief change. Alert and coop HEENT: Pupils are equally round. Oropharynx, pink and moist. No lesions seen. NECK: Supple. LUNGS: Clear to auscultation. No accessory muscle use. HEART: S1 and S2. ABDOMEN: Obese, soft, nontender with bowel sounds present. Obese, Mild yeast on pannus/groin area. EXTREMITIES: No gross edema or cyanosis. Left arm is slightly swollen and warm better. He has multiple scabs. No redness noted. He did not have any axillary lymph nodes palpable. SKIN: Warm to touch. No signs of generalized rash. He has small scabs to his right great toe and a fairly superficial appearing ulcer on the distal left TMA without evidence of infection. Distal pulses palpable. He has some scratch luna on his left whalen. NEUROLOGIC: Alert and coop Labs Lab Laboratory Tests Test 10/26/19 08:45 10/26/19 11:52 10/26/19 16:59 10/26/19 22:29 White Blood Count 10.9 x10^3/uL (4.0-11.0) Red Blood Count 2.96 x10^6/uL (4.30-5.70) Hemoglobin 8.1 g/dL (13.0-17.5) Hematocrit 25.0 % (39.0-53.0) Mean Corpuscular Volume 84 fL (79-100) Mean Corpuscular Hemoglobin 27 pg (25-35) Mean Corpuscular Hemoglobin Concent 33 g/dL (31-37) Red Cell Distribution Width 15.6 % (11.5-14.5) Platelet Count 259 x10^3/uL (140-400) Neutrophils (%) (Auto) 79 % (31-73) Lymphocytes (%) (Auto) 8 % (24-48) Monocytes (%) (Auto) 10 % (0-9) Eosinophils (%) (Auto) 2 % (0-3) Basophils (%) (Auto) 0 % (0-3) Neutrophils # (Auto) 8.6 x10^3/uL (1.8-7.7) Lymphocytes # (Auto) 0.9 x10^3/uL (1.0-4.8) Monocytes # (Auto) 1.1 x10^3/uL (0.0-1.1) Eosinophils # (Auto) 0.2 x10^3/uL (0.0-0.7) Basophils # (Auto) 0.0 x10^3/uL (0.0-0.2) Sodium Level 140 mmol/L (136-145) Potassium Level 3.6 mmol/L (3.5-5.1) Chloride Level 102 mmol/L (98-107) Carbon Dioxide Level 29 mmol/L (21-32) Anion Gap 9 (6-14) Blood Urea Nitrogen 31 mg/dL (8-26) Creatinine 1.7 mg/dL (0.7-1.3) Estimated GFR (Cockcroft-Gault) 39.8 BUN/Creatinine Ratio 18 (6-20) Glucose Level 144 mg/dL (70-99) Calcium Level 8.4 mg/dL (8.5-10.1) Total Bilirubin 0.4 mg/dL (0.2-1.0) Aspartate Amino Transf (AST/SGOT) 17 U/L (15-37) Alanine Aminotransferase (ALT/SGPT) 17 U/L (16-63) Alkaline Phosphatase 85 U/L (46-116) C-Reactive Protein, Quantitative 181.1 mg/L (0-3.3) Total Protein 6.8 g/dL (6.4-8.2) Albumin 2.0 g/dL (3.4-5.0) Albumin/Globulin Ratio 0.4 (1.0-1.7) Procalcitonin 0.29 ng/mL (0.00-0.10) Glucose (Fingerstick) 178 mg/dL (70-99) 157 mg/dL (70-99) 121 mg/dL (70-99) Test 10/27/19 04:30 10/27/19 08:19 White Blood Count 11.8 x10^3/uL (4.0-11.0) Red Blood Count 2.73 x10^6/uL (4.30-5.70) Hemoglobin 7.5 g/dL (13.0-17.5) Hematocrit 23.1 % (39.0-53.0) Mean Corpuscular Volume 85 fL (79-100) Mean Corpuscular Hemoglobin 28 pg (25-35) Mean Corpuscular Hemoglobin Concent 33 g/dL (31-37) Red Cell Distribution Width 15.5 % (11.5-14.5) Platelet Count 268 x10^3/uL (140-400) Neutrophils (%) (Auto) 80 % (31-73) Lymphocytes (%) (Auto) 9 % (24-48) Monocytes (%) (Auto) 9 % (0-9) Eosinophils (%) (Auto) 2 % (0-3) Basophils (%) (Auto) 0 % (0-3) Neutrophils # (Auto) 9.5 x10^3/uL (1.8-7.7) Lymphocytes # (Auto) 1.0 x10^3/uL (1.0-4.8) Monocytes # (Auto) 1.1 x10^3/uL (0.0-1.1) Eosinophils # (Auto) 0.2 x10^3/uL (0.0-0.7) Basophils # (Auto) 0.0 x10^3/uL (0.0-0.2) Sodium Level 143 mmol/L (136-145) Potassium Level 3.8 mmol/L (3.5-5.1) Chloride Level 104 mmol/L (98-107) Carbon Dioxide Level 27 mmol/L (21-32) Anion Gap 12 (6-14) Blood Urea Nitrogen 39 mg/dL (8-26) Creatinine 1.9 mg/dL (0.7-1.3) Estimated GFR (Cockcroft-Gault) 35.0 BUN/Creatinine Ratio 21 (6-20) Glucose Level 136 mg/dL (70-99) Calcium Level 8.7 mg/dL (8.5-10.1) Total Bilirubin 0.2 mg/dL (0.2-1.0) Aspartate Amino Transf (AST/SGOT) 23 U/L (15-37) Alanine Aminotransferase (ALT/SGPT) 23 U/L (16-63) Alkaline Phosphatase 78 U/L (46-116) Total Protein 6.7 g/dL (6.4-8.2) Albumin 1.9 g/dL (3.4-5.0) Albumin/Globulin Ratio 0.4 (1.0-1.7) Glucose (Fingerstick) 141 mg/dL (70-99) Micro AORTIC VALVE The aortic valve is not well visualized. Doppler and Color Flow revealed no significant aortic regurgitation. There is no significant aortic valvular stenosis. MITRAL VALVE Not well visualized. There is no mitral valve stenosis. Doppler and Color Flow revealed no mitral valve regurgitation noted. TRICUSPID VALVE Not well visualized. Doppler and Color Flow revealed no tricuspid valve regurgitation noted. There is no tricuspid valve stenosis. PULMONIC VALVE The pulmonic valve is not well visualized. Doppler and Color Flow revealed no pulmonic valvular regurgitation. There is no pulmonic valvular stenosis. Objective Assessment 1. Fever etiology unclear - returned again 10/25 but now better d/c'd Unasyn and added Meropenem 10/25 - mild elevation of Procal but Cr elevated 2. Arthralgia- persist 3. Cat scratches. 4. Leukocytosis - ? reactive ? Unasyn reaction. 5. ANTIBIOTIC ALLERGIES TO ZOSYN AND CEFUROXIME, REACTION UNKNOWN. 6. Peripheral vascular disease.arterial doppler per Card 7. Diabetes with peripheral neuropathy. 8. DIAMOND on Chronic kidney disease. 9. Morbid obesity. 10. Hypertension. Constipation BM 10/24 Chronic nonhealing wounds, lower extremities. No clinical evidence of infection Plan Plan of Care F/u Bartonella titers to po Doxy Await renal eval - may need Us Consider MRI lumbar no contrast superficial abrasions on both foot no evidence of OM Cat scratches on LUE, no gross evidence of cellulitis or abscess on todays exam PAD per card/Vacular Discont unasyn -dose meropenem 10/25 Monitor closely Stop if any reactions D/w nursing LAURI MO MD Oct 27, 2019 08:46
[2019-10-27] MEDS: FUROSEMIDE 40 MG TABLET. PO SCH ×2 (08:52→15:31)
[2019-10-27] MEDS: POTASSIUM CHLORIDE 10 MEQ TABLET.ER. PO SCH (08:52)
[2019-10-27] MEDS: ASPIRIN CHEWABLE 81 MG TABLET. PO SCH (08:52)
[2019-10-27] MEDS: MULTIVITAMIN I-VITE TABLET. PO SCH (08:52)
[2019-10-27] MEDS: oxyCODONE IR 5 MG TABLET PO PRN ×2 (08:53→15:32)
[2019-10-27] MEDS: LACTOBACILLUS RHAMNOSUS GG 1 CAPSULE. PO SCH ×2 (08:53→21:45)
[2019-10-27] MEDS: ATORVASTATIN CALCIUM 20 MG TABLET PO SCH (08:53)
[2019-10-27] MEDS: IRON POLYSACCHARIDE COMPLEX 150 MG CAPSULE PO SCH ×2 (08:53→21:45)
[2019-10-27] MEDS: CHOLECALCIFEROL (VITAMIN D3) 1,000 UNIT TABLET PO SCH (08:53)
[2019-10-27] MEDS: PANTOPRAZOLE 40 MG TABLET.DR. PO SCH (08:53)
[2019-10-27] MEDS: MULTIVITAMIN with MINERAL TABLET. PO SCH (08:53)
[2019-10-27] MEDS: SENNOSIDES/DOCUSATE 8.6/50MG TABLET. PO SCH ×2 (08:53→21:45)
[2019-10-27] MEDS: LISINOPRIL 20 MG TABLET PO SCH (08:54)
[2019-10-27] MEDS: amLODIPine BESYLATE 10 MG TABLET PO SCH (08:54)
[2019-10-27] MEDS: CYCLOBENZAPRINE 10 MG TABLET. PO PRN ×2 (08:54→21:52)
[2019-10-27] MEDS: FLUTICASONE 50MCG/NASAL SPRAY 16GM BOTTLE. NS SCH (08:55)
[2019-10-27] MEDS: CARVEDILOL 12.5 MG TABLET. PO SCH ×2 (08:55→17:56)
[2019-10-27] MEDS: NYSTATIN TOPICAL POWDER 15GM BOTTLE. TP SCH ×2 (08:57→21:00)
[2019-10-27] MEDS: DOXYCYCLINE HYCLATE 100 MG TABLET PO SCH ×2 (08:57→21:45)
--- NOTE | 2019-10-27 09:10 | PDOC2 ---
CONSULT Date of Consult Date of Consult DATE: 10/27/19 TIME: 09:10 Reason for Consult Reason for Consult: Elevated Creatinine Referring Physician Referring Physician: Dr. carnes Identification/Chief Complaint Chief Complaint "I am feeling sleepy" Source Source: Chart review, Patient History of Present Illness Reason for Visit: Patient is a 74-year-old male with a past medical history of morbid obesity, diabetes type 2, peripheral neuropathy, and a previous left transmetatarsal amputation. He presented to the ER with complaints of left arm pain and was admitted on 10/23 . He is a very poor Historian , most Hx obtained from chart review. He reported at presentation that he has a cat that clawed him several times. He complained of fever, chills, and joint pains, primarily shoulders and wrists and not feeling very well. No N/V /D . No abdominal pain. Denies any CP or SOB .States he is not sure if he has any urinary complaints He follows with female Senior Licensing Manager at [facility] since approx / years , doesnt recall the name . He states he has missed few appts recently. He is not aware of his CKD stage or Creatinine values He is not sure how long has he been on Lisinopril . He denies any NSAID's . On reviewing his chart - he was seen by Dr Arriola during his previous hospitalization and had Hx of Nsaid's Past Medical History Cardiovascular: HTN, Hyperlipidemia, Other Pulmonary: Other Heme/Onc: Anemia NOS Psych: Depression Musculoskeletal: Other Renal/: Chronic renal insuff, Benign prostatic enlarg. Endocrine: Diabetes Past Surgical History Past Surgical History Right rotator cuff surgery. Past Surgical History: Other Family History Family History: Diabetes, Hypertension Social History Social History The patient lives at home. He is a former smoker. He has two cats. No ALCOHOL: none Drugs: None Lives: with Family Current Problem List Problem List Problems Medical Problems: (1) Elevated troponin Status: Acute (2) Wound of foot Status: Acute Current Medications Current Medications Current Medications Sodium Chloride 500 ml @ 500 mls/hr 1X ONCE IV Last administered on 10/22/19at 13:12; Start 10/22/19 at 13:00; Stop 10/22/19 at 13:59; Status DC Iohexol (Omnipaque 300 Mg/ml) 60 ml 1X ONCE IV Last administered on 10/22/19at 13:58; Start 10/22/19 at 13:45; Stop 10/22/19 at 13:47; Status DC Info (CONTRAST GIVEN -- Rx MONITORING) 1 each PRN DAILY PRN MC SEE COMMENTS; Start 10/22/19 at 14:00; Stop 10/24/19 at 13:59; Status DC Ondansetron HCl (Zofran) 4 mg PRN Q8HRS PRN IV NAUSEA/VOMITING; Start 10/22/19 at 15:30; Stop 10/23/19 at 15:29; Status DC Fentanyl Citrate (Fentanyl 2ml Vial) 50 mcg PRN Q1HR PRN IV PAIN Last administ ered on 10/22/19at 20:17; Start 10/22/19 at 15:30; Stop 10/23/19 at 15:29; Status DC Lorazepam (Ativan Inj) 1 mg PRN Q4HRS PRN IVP ANXIETY / AGITATION Last administered on 10/26/19at 14:01; Start 10/22/19 at 17:45 Insulin Human Lispro (HumaLOG) 0-9 UNITS TIDWMEALS SQ Last administered on 10/26/19at 17:30; Start 10/23/19 at 08:00 Dextrose (Dextrose 50%-Water Syringe) 12.5 gm PRN Q15MIN PRN IV SEE COMMENTS; Start 10/22/19 at 17:45 Phenazopyridine HCl (Pyridium) 200 mg 1X ONCE PO Last administered on 0at 20:59; Start 10/22/19 at 19:45; Stop 10/22/19 at 19:48; Status DC Phenazopyridine HCl (Pyridium) 200 mg PRN TID PRN PO URINARY PAIN; Start 10/22/19 at 19:45 Morphine Sulfate (Morphine Sulfate) 4 mg PRN Q2HR PRN IV PAIN Last administered on 10/26/19at 06:14; Start 10/22/19 at 19:45 Cyclobenzaprine HCl (Flexeril) 10 mg PRN Q6HRS PRN PO MUSCLE SPASMS Last administered on 10/27/19at 08:54; Start 10/22/19 at 20:00 Albuterol Sulfate (Ventolin Neb Soln) 2.5 mg PRN Q4HRS PRN NEB SHORTNESS OF BREATH; Start 10/22/19 at 20:00 Amlodipine Besylate (Norvasc) 5 mg DAILY PO Last administered on 10/25/19 08:38; Start 10/23/19 at 09:00; Stop 10/25/19 at 15:20; Status DC Aspirin (Aspirin Chewable) 162 mg DAILY PO Last administered on 10/27/19 08:52; Start 10/23/19 at 09:00 Atorvastatin Calcium (Lipitor) 20 mg DAILY PO Last administered on 10/27/19 08:53; Start 10/23/19 at 09:00 Budesonide (Pulmicort) 0.5 mg RTBID NEB Last administered on 10/27/19 07:38; Start 10/22/19 at 20:00 Vitamin D (Vitamin D3) 2,000 unit DAILY PO Last administered on 10/27/19 08:53; Start 10/23/19 at 09:00 Furosemide (Lasix) 40 mg BID92 PO Last administered on 10/27/19 08:52; Start 10/23/19 at 09:00 Guaifenesin (Robitussin Dm) 10 ml PRN Q6HRS PRN PO COUGH, 1st CHOICE; Start 10/22/19 at 20:00 Hydralazine HCl (Apresoline) 50 mg TID PO Last administered on 10/27/19 08:54; Start 10/22/19 at 21:00 Polysaccharide Iron Complex (Niferex 150) 150 mg BID PO Last administered on 10/27/19 08:53; Start 10/22/19 at 21:00 Lisinopril (Prinivil) 40 mg DAILY PO Last administered on 10/27/19at 08:54; Start 10/23/19 at 09:00 Multivitamins (Thera M Plus) 1 tab DAILY PO Last administered on 10/27/19 08:53; Start 10/23/19 at 09:00 Nystatin (Nystop) 1 ritu DAILY TP ; Start 10/23/19 at 09:00; Status Cancel Oxycodone HCl (Roxicodone) 10 mg PRN Q4HRS PRN PO SEVERE PAIN 7-10 Last administered on 10/27/19at 08:53; Start 10/22/19 at 20:00 Pantoprazole Sodium (Protonix) 40 mg DAILY PO Last administered on 10/27/19 08:53; Start 10/23/19 at 09:00 Potassium Chloride (Klor-Con) 30 meq DAILYWBKFT PO Last administered on 10/27/19at 08:52; Start 10/23/19 at 08:00 Senna/Docusate Sodium (Senna Plus) 1 tab BID PO Last administered on 10/27/19 08:53; Start 10/22/19 at 21:00 Trimethoprim/ Sulfamethoxazole (Bactrim Ds) 1 tab BID PO ; Start 10/22/19 at 21:00; Stop 10/22/19 at 20:01; Status DC Carvedilol (Coreg) 25 mg BIDWMEALS PO Last administered on 10/27/19 08:55; Start 10/23/19 at 08:00 Fluticasone Propionate (Flonase) 2 spray DAILY NS Last administered on 10/27/19 08:55; Start 10/23/19 at 09:00 Insulin Human Lispro (HumaLOG) 30 units TIDWMEALS SQ Last administered on 10/23/19 08:11; Start 10/23/19 at 08:00; Stop 10/23/19 at 12:59; Status DC Insulin Glargine (Lantus Syringe) 45 unit QHS SQ Last administered on 10/26/19at 22:42; Start 10/22/19 at 21:00 Nystatin (Nystop) 1 ritu BID TP Last administered on 10/27/19 08:57; Start 10/22/19 at 21:00 Enoxaparin Sodium (Lovenox Per Pharmacy Prophylaxis Dosing) 1 each PRN DAILY PRN MC SEE COMMENTS; Start 10/22/19 at 20:00 Enoxaparin Sodium (Lovenox 60mg Syringe) 60 mg Q12HR SQ Last administered on 10/27/19 08:57; Start 10/22/19 at 21:00 Insulin Human Lispro (HumaLOG) 18 units TIDWMEALS SQ Last administered on 10/25/19at 08:48; Start 10/23/19 at 17:00 Perflutren Protein Type A Microsphe (Optison) 0.66 mg STK-MED ONCE IV ; Start 10/24/19 at 13:11; Stop 10/24/19 at 13:11; Status DC Ampicillin Sodium/ Sulbactam Sodium 3 gm/Sodium Chloride 100 ml @ 200 mls/hr Q6HRS IV Last administered on 10/26/19at 12:21; Start 10/24/19 at 16:30; Stop 10/26/19 at 12:35; Status DC Diphenhydramine HCl (Benadryl) 25 mg PRN Q6HRS PRN IVP ITCHING Last administered on 10/26/19at 06:28; Start 10/24/19 at 16:00; Stop 10/26/19 at 12:24; Status DC Lactobacillus Rhamnosus (Culturelle) 1 cap BID PO Last administered on 10/27/19at 08:53; Start 10/24/19 at 21:00 Acetaminophen (Tylenol) 650 mg PRN Q6HRS PRN PO FEVER > 100.5'F Last administered on 10/25/19at 11:57; Start 10/25/19 at 11:30 Amlodipine Besylate (Norvasc) 10 mg DAILY PO Last administered on 10/27/19at 08:54; Start 10/26/19 at 09:00 Multivitamins/ Minerals (I-Madalyn) 1 tab DAILY PO Last administered on 10/27/19at 08:52; Start 10/26/19 at 09:00 Bisacodyl (Dulcolax Tab) 10 mg PRN DAILY PRN PO CONSTIPATION; Start 10/26/19 at 12:00 Docusate Sodium (Colace) 100 mg PRN DAILY PRN PO HARD STOOLS Last administered on 10/27/19at 08:54; Start 10/26/19 at 12:00 Doxycycline Hyclate 100 mg/ Dextrose 100 ml @ 50 mls/hr Q12HR IV Last administered on 10/26/19at 22:22; Start 10/26/19 at 13:00; Stop 10/27/19 at 08:41 ; Status DC Meropenem 500 mg/ Sodium Chloride 50 ml @ 100 mls/hr Q6HRS IV Last administered on 10/27/19at 06:38; Start 10/26/19 at 18:00 Amino Acids/ Glycerin/ Electrolytes 1,000 ml @ 30 mls/hr Q24H IV Last administered on 10/26/19at 16:23; Start 8/18/20 at 16:00 Doxycycline Hyclate (Vibra-Tab) 100 mg BID PO Last administered on 10/27/19at 08:57; Start 10/27/19 at 09:00 Active Scripts Active Bactrim Ds Tablet (Sulfamethoxazole/Trimethoprim) 1 Each Tablet 1 Tab PO BID Klor-Con 10 (Potassium Chloride) 10 Meq Tablet.er 30 Meq PO DAILYWBKFT 7 Days Amlodipine Besylate 5 Mg Tablet 5 Mg PO DAILY Hydralazine Hcl 25 Mg Tablet 50 Mg PO TID Thera-M Tablet (Multivits,Ca,Minerals/Iron/Fa) 1 Each Tablet 1 Tab PO DAILY MDD 1 Budesonide 0.5 Mg/2 Ml Ampul.neb 0.5 Mg NEB RTBID MDD 1 Guaifenesin Dm Syrup (Guaifenesin/Dextromethorphan) 5 Ml Syrup 10 Ml PO PRN Q6HRS PRN MDD 1 Proair Hfa (Albuterol Sulfate) 8.5 Gm Hfa.aer.ad 2.5 Mg NEB PRN Q4HRS PRN MDD 1 Poly-Iron (Iron Polysaccharides Complex) 150 Mg Capsule 150 Mg PO BID MDD 1 Oxycodone Hcl Immed.release (Oxycodone Hcl) 5 Mg Tablet 10 Mg PO PRN Q4HRS PRN MDD 1 Reported Novolog Flexpen (Insulin Aspart) 100 Unit/1 Ml Insuln.pen 30 SQ TIDWMEALS Aspirin 325 Mg Tablet 0.5 Tab PO DAILY Senna-S Tablet (Sennosides/Docusate Sodium) 1 Each Tablet 1 Each PO BID Nyamyc (Nystatin) 15 Gm Powder 15 Gm TP DAILY Culturelle (Lactobacillus Rhamnosus Gg) 1 Each Capsule 1 Each PO BIDWMEALS Lantus Solostar (Insulin Glargine,Hum.rec.anlog) 100 Unit/1 Ml Insuln.pen 45 Unit SQ QHS Cvs Glucosamine-Chondr Tablet (Glucosamine Hcl/Chondr [place] A Na) 1 Each Tablet 2 Each PO DAILY Flonase Allergy Relief (Fluticasone Propionate) 9.9 Ml [place].susp 2 Sprays NS DAILY Diphenhydramine Hcl 50 Mg Capsule 25 Mg PO Q6HRS PRN Vitamin D3 (Cholecalciferol (Vitamin D3)) 1,000 Unit Tablet 2,000 Unit PO DAILY Atorvastatin Calcium 20 Mg Tablet DAILY Furosemide 20 Mg Tablet 40 Mg BID Lisinopril 40 Mg Tablet 40 DAILY Carvedilol 25 Mg Tablet 25 BID Pantoprazole Sodium (Pantoprazole Sodium) 40 Mg Tablet. DAILY Allergies Allergies: Coded Allergies: cefuroxime (Verified Allergy, Intermediate, 11/02/18) piperacillin (Verified Adverse Reaction, Intermediate, RASH, 11/02/18) TOLERATED ERTAPENEM tazobactam (Verified Adverse Reaction, Intermediate, RASH, 11/02/18) TOLERATED ERTAPENEM zolpidem (Verified Adverse Reaction, Intermediate, HALLUCINATIONS, 11/02/18) glipizide (Verified Adverse Reaction, Mild, SENSITIVITY TO SUN, 11/02/18) Uncoded Allergies: DUST (Allergy, Mild, SNEEZING, 10/25/15) ROS Review of System As per HPI, rest of the ROS is negative Physical Exam Physical Exam GENERAL: Propped up in bed, sleeping, easily arousable but falls asleep during the conversation HEENT: Oropharynx, pink and moist. NECK: Supple, thick LUNGS: Clear to auscultation.Decreased at bases, No accessory muscle use. HEART: S1 and S2. ABDOMEN: Obese, nontender EXTREMITIES: No gross edema or cyanosis. superficial ulcer on the distal left TMA SKIN: No signs of generalized rash. Changes of Stasis dermatitis + NEUROLOGIC: Alert and coop No [place], No CVA or SP tenderness Vital Signs Vital Signs Date Time Temp Pulse Resp B/P (MAP) Pulse Ox O2 Delivery O2 Flow Rate FiO2 10/27/19 08:55 88 151/62 10/27/19 07:38 99 Room Air 10/27/19 03:00 98.2 20 98.2 10/26/19 20:00 2.0 Assessment & Plan DIAMOND on CKD - ATN vs his baseline UA unremarkable , Good UOP per RN, Ct scan- distended Urinary bladder Currently on Lasix and Lisinopril , will hold if worsening renal function E-Lytes stable ,Supportive care, avoid Nephrotoxins , Strict I/O, Monitor daily BMP CKD stage 3- based on lab review in [facility] records Cr has been 1.3-2.4 since 2016 Follows with Senior Licensing Manager at [facility]- pt doesnt know any details Please Obtain recent labs from PCP office and Records (Nephrology) from [facility] Cysts - On CT scan - small foci of exophytic density of the bilateral kidneys potentially due to hemorrhagic or complex cysts although small solid lesions not excluded. Nonemergent multi phase CT evaluation versus 6 month follow-up to assess stability is recommended. Mild prominence of the urinary bladder [place], could be due to incomplete distention unless suspicion for cystitis. 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 Peripheral vascular disease-Arterial Duplex Moderate to high-grade right SFA disease, one-vessel runoff in the right leg No significant left-sided arterial disease with two-vessel runoff Diabetes with peripheral neuropathy. Morbid obesity. Hypertension. Chronic nonhealing wounds, lower extremities. No clinical evidence of infection Labs Labs Laboratory Tests Test 10/25/19 11:57 10/25/19 16:58 10/25/19 22:18 10/26/19 07:34 Glucose (Fingerstick) 68 mg/dL (70-99) 70 mg/dL (70-99) 170 mg/dL (70-99) 140 mg/dL (70-99) Test 10/26/19 08:45 10/26/19 11:52 10/26/19 16:59 10/26/19 22:29 White Blood Count 10.9 x10^3/uL (4.0-11.0) Red Blood Count 2.96 x10^6/uL (4.30-5.70) Hemoglobin 8.1 g/dL (13.0-17.5) Hematocrit 25.0 % (39.0-53.0) Mean Corpuscular Volume 84 fL (79-100) Mean Corpuscular Hemoglobin 27 pg (25-35) Mean Corpuscular Hemoglobin Concent 33 g/dL (31-37) Red Cell Distribution Width 15.6 % (11.5-14.5) Platelet Count 259 x10^3/uL (140-400) Neutrophils (%) (Auto) 79 % (31-73) Lymphocytes (%) (Auto) 8 % (24-48) Monocytes (%) (Auto) 10 % (0-9) Eosinophils (%) (Auto) 2 % (0-3) Basophils (%) (Auto) 0 % (0-3) Neutrophils # (Auto) 8.6 x10^3/uL (1.8-7.7) Lymphocytes # (Auto) 0.9 x10^3/uL (1.0-4.8) Monocytes # (Auto) 1.1 x10^3/uL (0.0-1.1) Eosinophils # (Auto) 0.2 x10^3/uL (0.0-0.7) Basophils # (Auto) 0.0 x10^3/uL (0.0-0.2) Sodium Level 140 mmol/L (136-145) Potassium Level 3.6 mmol/L (3.5-5.1) Chloride Level 102 mmol/L (98-107) Carbon Dioxide Level 29 mmol/L (21-32) Anion Gap 9 (6-14) Blood Urea Nitrogen 31 mg/dL (8-26) Creatinine 1.7 mg/dL (0.7-1.3) Estimated GFR (Cockcroft-Gault) 39.8 BUN/Creatinine Ratio 18 (6-20) Glucose Level 144 mg/dL (70-99) Calcium Level 8.4 mg/dL (8.5-10.1) Total Bilirubin 0.4 mg/dL (0.2-1.0) Aspartate Amino Transf (AST/SGOT) 17 U/L (15-37) Alanine Aminotransferase (ALT/SGPT) 17 U/L (16-63) Alkaline Phosphatase 85 U/L (46-116) C-Reactive Protein, Quantitative 181.1 mg/L (0-3.3) Total Protein 6.8 g/dL (6.4-8.2) Albumin 2.0 g/dL (3.4-5.0) Albumin/Globulin Ratio 0.4 (1.0-1.7) Procalcitonin 0.29 ng/mL (0.00-0.10) Glucose (Fingerstick) 178 mg/dL (70-99) 157 mg/dL (70-99) 121 mg/dL (70-99) Test 10/27/19 04:30 10/27/19 08:19 White Blood Count 11.8 x10^3/uL (4.0-11.0) Red Blood Count 2.73 x10^6/uL (4.30-5.70) Hemoglobin 7.5 g/dL (13.0-17.5) Hematocrit 23.1 % (39.0-53.0) Mean Corpuscular Volume 85 fL (79-100) Mean Corpuscular Hemoglobin 28 pg (25-35) Mean Corpuscular Hemoglobin Concent 33 g/dL (31-37) Red Cell Distribution Width 15.5 % (11.5-14.5) Platelet Count 268 x10^3/uL (140-400) Neutrophils (%) (Auto) 80 % (31-73) Lymphocytes (%) (Auto) 9 % (24-48) Monocytes (%) (Auto) 9 % (0-9) Eosinophils (%) (Auto) 2 % (0-3) Basophils (%) (Auto) 0 % (0-3) Neutrophils # (Auto) 9.5 x10^3/uL (1.8-7.7) Lymphocytes # (Auto) 1.0 x10^3/uL (1.0-4.8) Monocytes # (Auto) 1.1 x10^3/uL (0.0-1.1) Eosinophils # (Auto) 0.2 x10^3/uL (0.0-0.7) Basophils # (Auto) 0.0 x10^3/uL (0.0-0.2) Sodium Level 143 mmol/L (136-145) Potassium Level 3.8 mmol/L (3.5-5.1) Chloride Level 104 mmol/L (98-107) Carbon Dioxide Level 27 mmol/L (21-32) Anion Gap 12 (6-14) Blood Urea Nitrogen 39 mg/dL (8-26) Creatinine 1.9 mg/dL (0.7-1.3) Estimated GFR (Cockcroft-Gault) 35.0 BUN/Creatinine Ratio 21 (6-20) Glucose Level 136 mg/dL (70-99) Calcium Level 8.7 mg/dL (8.5-10.1) Total Bilirubin 0.2 mg/dL (0.2-1.0) Aspartate Amino Transf (AST/SGOT) 23 U/L (15-37) Alanine Aminotransferase (ALT/SGPT) 23 U/L (16-63) Alkaline Phosphatase 78 U/L (46-116) Total Protein 6.7 g/dL (6.4-8.2) Albumin 1.9 g/dL (3.4-5.0) Albumin/Globulin Ratio 0.4 (1.0-1.7) Glucose (Fingerstick) 141 mg/dL (70-99) Laboratory Tests Test 10/26/19 11:52 10/26/19 16:59 10/26/19 22:29 10/27/19 04:30 Glucose (Fingerstick) 178 mg/dL (70-99) 157 mg/dL (70-99) 121 mg/dL (70-99) White Blood Count 11.8 x10^3/uL (4.0-11.0) Red Blood Count 2.73 x10^6/uL (4.30-5.70) Hemoglobin 7.5 g/dL (13.0-17.5) Hematocrit 23.1 % (39.0-53.0) Mean Corpuscular Volume 85 fL (79-100) Mean Corpuscular Hemoglobin 28 pg (25-35) Mean Corpuscular Hemoglobin Concent 33 g/dL (31-37) Red Cell Distribution Width 15.5 % (11.5-14.5) Platelet Count 268 x10^3/uL (140-400) Neutrophils (%) (Auto) 80 % (31-73) Lymphocytes (%) (Auto) 9 % (24-48) Monocytes (%) (Auto) 9 % (0-9) Eosinophils (%) (Auto) 2 % (0-3) Basophils (%) (Auto) 0 % (0-3) Neutrophils # (Auto) 9.5 x10^3/uL (1.8-7.7) Lymphocytes # (Auto) 1.0 x10^3/uL (1.0-4.8) Monocytes # (Auto) 1.1 x10^3/uL (0.0-1.1) Eosinophils # (Auto) 0.2 x10^3/uL (0.0-0.7) Basophils # (Auto) 0.0 x10^3/uL (0.0-0.2) Sodium Level 143 mmol/L (136-145) Potassium Level 3.8 mmol/L (3.5-5.1) Chloride Level 104 mmol/L (98-107) Carbon Dioxide Level 27 mmol/L (21-32) Anion Gap 12 (6-14) Blood Urea Nitrogen 39 mg/dL (8-26) Creatinine 1.9 mg/dL (0.7-1.3) Estimated GFR (Cockcroft-Gault) 35.0 BUN/Creatinine Ratio 21 (6-20) Glucose Level 136 mg/dL (70-99) Calcium Level 8.7 mg/dL (8.5-10.1) Total Bilirubin 0.2 mg/dL (0.2-1.0) Aspartate Amino Transf (AST/SGOT) 23 U/L (15-37) Alanine Aminotransferase (ALT/SGPT) 23 U/L (16-63) Alkaline Phosphatase 78 U/L (46-116) Total Protein 6.7 g/dL (6.4-8.2) Albumin 1.9 g/dL (3.4-5.0) Albumin/Globulin Ratio 0.4 (1.0-1.7) Test 10/27/19 08:19 Glucose (Fingerstick) 141 mg/dL (70-99) Review All relevant outside records, renal labs, imaging studies, telemetry/EKG's were reviewed. Images Images CT scan 10/21 1. There is cholelithiasis. 2. Appendix is not confidently identified although no significant pericecal inflammatory type change. There is no evidence of bowel obstruction. There is mild retained stool in the colon. 3. There is nonspecific strandy change of the perinephric fat bilaterally. There is no hydronephrosis. There are some small foci of exophytic density of the bilateral kidneys potentially due to hemorrhagic or complex cysts although small solid lesions not excluded. Nonemergent multi phase CT evaluation versus 6 month follow-up to assess stability is recommended. 4. There is mild prominence of the urinary bladder [place], could be due to incomplete distention unless suspicion for cystitis. 5. There is small nonspecific lytic lesion of the right T12 vertebral body. DINESH SWAN MD Oct 27, 2019 09:10
--- NOTE | 2019-10-27 09:33 | NUR ---
SS following up with discharge planning. SS reviewed pt chart and discussed with pt RN. [facility] declined pt due to weight. [facility] unsure about IV antibiotics and care home plan. SS spoke with son, Juan Carlos Herrera, and discussed. Pt's son reported that Medicaid informed them that they have to spend down and sell pt's house prior to qualifying for Medicaid. Juan Carlos reported that care home plan is to place pt in LTC. Pt's son understanding that [facility] is hesitant to accept pt and [facility] declined. Pt's son requesting referral to [facility] in [facility], ; fax [phone]. SS phoned and faxed referral as requested. SS will await acceptance decision and insurance determination and will proceed accordingly.
[2019-10-27 11:00] VITALS: BP 134/56
--- NOTE | 2019-10-27 11:04 | PDOC ---
Date of Service: DATE: 10/27/19 TIME: 11:02 Subjective: Subjective: Says his fingertips are caving in. Really liked breakfast. Objective: Objective: No GI conerns per nurse - possible DC soon to SNU. Vital Signs: Vital Signs Date Time Temp Pulse Resp B/P (MAP) Pulse Ox O2 Delivery O2 Flow Rate FiO2 10/27/19 08:55 88 151/62 10/27/19 08:00 Room Air 10/27/19 07:38 99 10/27/19 07:00 98.1 20 98.1 10/26/19 20:00 2.0 Labs: Laboratory Tests Test 10/26/19 11:52 10/26/19 16:59 10/26/19 22:29 10/27/19 04:30 Glucose (Fingerstick) 178 mg/dL 157 mg/dL 121 mg/dL White Blood Count 11.8 x10^3/uL Red Blood Count 2.73 x10^6/uL Hemoglobin 7.5 g/dL Hematocrit 23.1 % Mean Corpuscular Volume 85 fL Mean Corpuscular Hemoglobin 28 pg Mean Corpuscular Hemoglobin Concent 33 g/dL Red Cell Distribution Width 15.5 % Platelet Count 268 x10^3/uL Neutrophils (%) (Auto) 80 % Lymphocytes (%) (Auto) 9 % Monocytes (%) (Auto) 9 % Eosinophils (%) (Auto) 2 % Basophils (%) (Auto) 0 % Neutrophils # (Auto) 9.5 x10^3/uL Lymphocytes # (Auto) 1.0 x10^3/uL Monocytes # (Auto) 1.1 x10^3/uL Eosinophils # (Auto) 0.2 x10^3/uL Basophils # (Auto) 0.0 x10^3/uL Sodium Level 143 mmol/L Potassium Level 3.8 mmol/L Chloride Level 104 mmol/L Carbon Dioxide Level 27 mmol/L Anion Gap 12 Blood Urea Nitrogen 39 mg/dL Creatinine 1.9 mg/dL Estimated GFR (Cockcroft-Gault) 35.0 BUN/Creatinine Ratio 21 Glucose Level 136 mg/dL Calcium Level 8.7 mg/dL Total Bilirubin 0.2 mg/dL Aspartate Amino Transf (AST/SGOT) 23 U/L Alanine Aminotransferase (ALT/SGPT) 23 U/L Alkaline Phosphatase 78 U/L Total Protein 6.7 g/dL Albumin 1.9 g/dL Albumin/Globulin Ratio 0.4 Test 10/27/19 08:19 Glucose (Fingerstick) 141 mg/dL BLOOD CULTURE Preliminary NO GROWTH AFTER 2 DAYS PE: GEN: NAD - sitting up in bed eating breakfast LUNGS: clear HEART: RRR ABD: large, non-tender NEURO/PSYCH: confused A/P: LOUISE/ACD - evaluated in the past; on PPI and iron -- Stable GI-lentz. Justicifation of Admission Dx: Justifications for Admission: Justification of Admission Dx: Yes MATT MARVIN Oct 27, 2019 11:04
--- NOTE | 2019-10-27 11:57 | NUR ---
SS following up with discharge planning. Pt accepted at [facility] pending insurance authorization. SS will continue to follow for discharge planning.
--- NOTE | 2019-10-27 14:42 | PDOC ---
PROGRESS NOTES Date of Service: DATE: 10/27/19 TIME: 14:38 Chief Complaint Chief Complaint Acute renal failure secondary to acute tubular necrosis CKD stage III creatinine has been 1.3-2.4 since 2016 Renal cysts noted on imaging studies follow-up in 6 months is recommended Fever of unclear etiology on antibiotics as per infectious disease Peripheral vascular disease Diabetes with peripheral neuropathy Morbid obesity Essential hypertension Chronic nonhealing wounds lower extremity without signs of infection Foot wound Debility Plan awaiting for placement History of Present Illness History of Present Illness 10/25/2019 Patient seen and examined We are considering getting him to a [facility] unit today but he just spiked a fever 102.1 Discussed with RN Discussed with case management Chart reviewed 10/26/19 Pt seen and examined PT/OT in the room during encounter Pt pleasantly confused, NAD Left foot dressing changed 10/25/19 - no apparent erythema, or sign of infection Chart reviewed Discussed with RN 10/27/19 No acute events reported overnight, case discussed with nursing staff patient in no acute distress no complaints during my visit History of Present Illness Mr. Herrera is a 74 year old male admti with mult problems. poor self care. Left arm swelling for a week. 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 he has a rash on his groin from sitting in his own urine at home thurman placed here and he complains of burning pain from the cath, he says he has $1400 prosthetic shoes for his amp foot , but doesnt know where they are, possibly here. . Vitals Vitals Vital Signs Date Time Temp Pulse Resp B/P (MAP) Pulse Ox O2 Delivery O2 Flow Rate FiO2 10/27/19 11:00 98.5 86 20 134/56 (82) 96 Room Air 98.5 10/26/19 20:00 2.0 Physical Exam Physical Exam GENERAL: The patient is in bed and has been rolled for brief change. Alert and coop HEENT: Pupils are equally round. Oropharynx, pink and moist. No lesions seen. NECK: Supple. LUNGS: Clear to auscultation. No accessory muscle use. HEART: S1 and S2. ABDOMEN: Obese, soft, nontender with bowel sounds present. Obese, Mild yeast on pannus/groin area. EXTREMITIES: No gross edema or cyanosis. Left arm is slightly swollen and warm better. He has multiple scabs. No redness noted. He did not have any axillary lymph nodes palpable. SKIN: Warm to touch. No signs of generalized rash. He has small scabs to his right great toe and a fairly superficial appearing ulcer on the distal left TMA without evidence of infection. Distal pulses palpable. He has some scratch luna on his left whalen. NEUROLOGIC: Alert and coop General: Cooperative, No acute distress Heart: Regular rate, Normal S1, Normal S2 Lungs: Clear Abdomen: Soft, No tenderness Extremities: No cyanosis, Other (The transmetatarsal amputation has superficial ulceration. There is minimal swelling, I do not see evidence of osteomyelitis clinically.) Skin: Other (The left TMA reveals a 1.3 x 0.6 x 0.1 open ulceration. The surrounding tissue has callus formation. There is no surrounding erythema or edema. A sterile curette was used to debride the callus with minimal bleeding which was controlled with pressure. The right great toe reveals a one by one thickened callus. Sterile curette was used to remove callus following application of topical lidocaine to soften the callus. Minimal bleeding occurred which was controlled with pressure.) Labs LABS Laboratory Tests Test 10/26/19 16:59 10/26/19 22:29 10/27/19 04:30 10/27/19 08:19 Glucose (Fingerstick) 157 mg/dL (70-99) 121 mg/dL (70-99) 141 mg/dL (70-99) White Blood Count 11.8 x10^3/uL (4.0-11.0) Red Blood Count 2.73 x10^6/uL (4.30-5.70) Hemoglobin 7.5 g/dL (13.0-17.5) Hematocrit 23.1 % (39.0-53.0) Mean Corpuscular Volume 85 fL (79-100) Mean Corpuscular Hemoglobin 28 pg (25-35) Mean Corpuscular Hemoglobin Concent 33 g/dL (31-37) Red Cell Distribution Width 15.5 % (11.5-14.5) Platelet Count 268 x10^3/uL (140-400) Neutrophils (%) (Auto) 80 % (31-73) Lymphocytes (%) (Auto) 9 % (24-48) Monocytes (%) (Auto) 9 % (0-9) Eosinophils (%) (Auto) 2 % (0-3) Basophils (%) (Auto) 0 % (0-3) Neutrophils # (Auto) 9.5 x10^3/uL (1.8-7.7) Lymphocytes # (Auto) 1.0 x10^3/uL (1.0-4.8) Monocytes # (Auto) 1.1 x10^3/uL (0.0-1.1) Eosinophils # (Auto) 0.2 x10^3/uL (0.0-0.7) Basophils # (Auto) 0.0 x10^3/uL (0.0-0.2) Sodium Level 143 mmol/L (136-145) Potassium Level 3.8 mmol/L (3.5-5.1) Chloride Level 104 mmol/L (98-107) Carbon Dioxide Level 27 mmol/L (21-32) Anion Gap 12 (6-14) Blood Urea Nitrogen 39 mg/dL (8-26) Creatinine 1.9 mg/dL (0.7-1.3) Estimated GFR (Cockcroft-Gault) 35.0 BUN/Creatinine Ratio 21 (6-20) Glucose Level 136 mg/dL (70-99) Calcium Level 8.7 mg/dL (8.5-10.1) Total Bilirubin 0.2 mg/dL (0.2-1.0) Aspartate Amino Transf (AST/SGOT) 23 U/L (15-37) Alanine Aminotransferase (ALT/SGPT) 23 U/L (16-63) Alkaline Phosphatase 78 U/L (46-116) Total Protein 6.7 g/dL (6.4-8.2) Albumin 1.9 g/dL (3.4-5.0) Albumin/Globulin Ratio 0.4 (1.0-1.7) Test 10/27/19 11:43 Glucose (Fingerstick) 163 mg/dL (70-99) Assessment and Plan Assessmemt and Plan Problems Medical Problems: (1) Elevated troponin Status: Acute (2) Wound of foot Status: Acute Comment Review of Relevant I have reviewed the following items minnie (where applicable) has been applied. Labs Laboratory Tests Test 10/25/19 16:58 10/25/19 22:18 10/26/19 07:34 10/26/19 08:45 Glucose (Fingerstick) 70 mg/dL (70-99) 170 mg/dL (70-99) 140 mg/dL (70-99) White Blood Count 10.9 x10^3/uL (4.0-11.0) Red Blood Count 2.96 x10^6/uL (4.30-5.70) Hemoglobin 8.1 g/dL (13.0-17.5) Hematocrit 25.0 % (39.0-53.0) Mean Corpuscular Volume 84 fL (79-100) Mean Corpuscular Hemoglobin 27 pg (25-35) Mean Corpuscular Hemoglobin Concent 33 g/dL (31-37) Red Cell Distribution Width 15.6 % (11.5-14.5) Platelet Count 259 x10^3/uL (140-400) Neutrophils (%) (Auto) 79 % (31-73) Lymphocytes (%) (Auto) 8 % (24-48) Monocytes (%) (Auto) 10 % (0-9) Eosinophils (%) (Auto) 2 % (0-3) Basophils (%) (Auto) 0 % (0-3) Neutrophils # (Auto) 8.6 x10^3/uL (1.8-7.7) Lymphocytes # (Auto) 0.9 x10^3/uL (1.0-4.8) Monocytes # (Auto) 1.1 x10^3/uL (0.0-1.1) Eosinophils # (Auto) 0.2 x10^3/uL (0.0-0.7) Basophils # (Auto) 0.0 x10^3/uL (0.0-0.2) Sodium Level 140 mmol/L (136-145) Potassium Level 3.6 mmol/L (3.5-5.1) Chloride Level 102 mmol/L (98-107) Carbon Dioxide Level 29 mmol/L (21-32) Anion Gap 9 (6-14) Blood Urea Nitrogen 31 mg/dL (8-26) Creatinine 1.7 mg/dL (0.7-1.3) Estimated GFR (Cockcroft-Gault) 39.8 BUN/Creatinine Ratio 18 (6-20) Glucose Level 144 mg/dL (70-99) Calcium Level 8.4 mg/dL (8.5-10.1) Total Bilirubin 0.4 mg/dL (0.2-1.0) Aspartate Amino Transf (AST/SGOT) 17 U/L (15-37) Alanine Aminotransferase (ALT/SGPT) 17 U/L (16-63) Alkaline Phosphatase 85 U/L (46-116) C-Reactive Protein, Quantitative 181.1 mg/L (0-3.3) Total Protein 6.8 g/dL (6.4-8.2) Albumin 2.0 g/dL (3.4-5.0) Albumin/Globulin Ratio 0.4 (1.0-1.7) Procalcitonin 0.29 ng/mL (0.00-0.10) Test 10/26/19 11:52 10/26/19 16:59 10/26/19 22:29 10/27/19 04:30 Glucose (Fingerstick) 178 mg/dL (70-99) 157 mg/dL (70-99) 121 mg/dL (70-99) White Blood Count 11.8 x10^3/uL (4.0-11.0) Red Blood Count 2.73 x10^6/uL (4.30-5.70) Hemoglobin 7.5 g/dL (13.0-17.5) Hematocrit 23.1 % (39.0-53.0) Mean Corpuscular Volume 85 fL (79-100) Mean Corpuscular Hemoglobin 28 pg (25-35) Mean Corpuscular Hemoglobin Concent 33 g/dL (31-37) Red Cell Distribution Width 15.5 % (11.5-14.5) Platelet Count 268 x10^3/uL (140-400) Neutrophils (%) (Auto) 80 % (31-73) Lymphocytes (%) (Auto) 9 % (24-48) Monocytes (%) (Auto) 9 % (0-9) Eosinophils (%) (Auto) 2 % (0-3) Basophils (%) (Auto) 0 % (0-3) Neutrophils # (Auto) 9.5 x10^3/uL (1.8-7.7) Lymphocytes # (Auto) 1.0 x10^3/uL (1.0-4.8) Monocytes # (Auto) 1.1 x10^3/uL (0.0-1.1) Eosinophils # (Auto) 0.2 x10^3/uL (0.0-0.7) Basophils # (Auto) 0.0 x10^3/uL (0.0-0.2) Sodium Level 143 mmol/L (136-145) Potassium Level 3.8 mmol/L (3.5-5.1) Chloride Level 104 mmol/L (98-107) Carbon Dioxide Level 27 mmol/L (21-32) Anion Gap 12 (6-14) Blood Urea Nitrogen 39 mg/dL (8-26) Creatinine 1.9 mg/dL (0.7-1.3) Estimated GFR (Cockcroft-Gault) 35.0 BUN/Creatinine Ratio 21 (6-20) Glucose Level 136 mg/dL (70-99) Calcium Level 8.7 mg/dL (8.5-10.1) Total Bilirubin 0.2 mg/dL (0.2-1.0) Aspartate Amino Transf (AST/SGOT) 23 U/L (15-37) Alanine Aminotransferase (ALT/SGPT) 23 U/L (16-63) Alkaline Phosphatase 78 U/L (46-116) Total Protein 6.7 g/dL (6.4-8.2) Albumin 1.9 g/dL (3.4-5.0) Albumin/Globulin Ratio 0.4 (1.0-1.7) Test 10/27/19 08:19 10/27/19 11:43 Glucose (Fingerstick) 141 mg/dL (70-99) 163 mg/dL (70-99) Laboratory Tests Test 10/26/19 16:59 10/26/19 22:29 10/27/19 04:30 10/27/19 08:19 Glucose (Fingerstick) 157 mg/dL (70-99) 121 mg/dL (70-99) 141 mg/dL (70-99) White Blood Count 11.8 x10^3/uL (4.0-11.0) Red Blood Count 2.73 x10^6/uL (4.30-5.70) Hemoglobin 7.5 g/dL (13.0-17.5) Hematocrit 23.1 % (39.0-53.0) Mean Corpuscular Volume 85 fL (79-100) Mean Corpuscular Hemoglobin 28 pg (25-35) Mean Corpuscular Hemoglobin Concent 33 g/dL (31-37) Red Cell Distribution Width 15.5 % (11.5-14.5) Platelet Count 268 x10^3/uL (140-400) Neutrophils (%) (Auto) 80 % (31-73) Lymphocytes (%) (Auto) 9 % (24-48) Monocytes (%) (Auto) 9 % (0-9) Eosinophils (%) (Auto) 2 % (0-3) Basophils (%) (Auto) 0 % (0-3) Neutrophils # (Auto) 9.5 x10^3/uL (1.8-7.7) Lymphocytes # (Auto) 1.0 x10^3/uL (1.0-4.8) Monocytes # (Auto) 1.1 x10^3/uL (0.0-1.1) Eosinophils # (Auto) 0.2 x10^3/uL (0.0-0.7) Basophils # (Auto) 0.0 x10^3/uL (0.0-0.2) Sodium Level 143 mmol/L (136-145) Potassium Level 3.8 mmol/L (3.5-5.1) Chloride Level 104 mmol/L (98-107) Carbon Dioxide Level 27 mmol/L (21-32) Anion Gap 12 (6-14) Blood Urea Nitrogen 39 mg/dL (8-26) Creatinine 1.9 mg/dL (0.7-1.3) Estimated GFR (Cockcroft-Gault) 35.0 BUN/Creatinine Ratio 21 (6-20) Glucose Level 136 mg/dL (70-99) Calcium Level 8.7 mg/dL (8.5-10.1) Total Bilirubin 0.2 mg/dL (0.2-1.0) Aspartate Amino Transf (AST/SGOT) 23 U/L (15-37) Alanine Aminotransferase (ALT/SGPT) 23 U/L (16-63) Alkaline Phosphatase 78 U/L (46-116) Total Protein 6.7 g/dL (6.4-8.2) Albumin 1.9 g/dL (3.4-5.0) Albumin/Globulin Ratio 0.4 (1.0-1.7) Test 10/27/19 11:43 Glucose (Fingerstick) 163 mg/dL (70-99) Microbiology 10/24/19 Blood Culture - Preliminary, Resulted NO GROWTH AFTER 2 DAYS Medications Current Medications Sodium Chloride 500 ml @ 500 mls/hr 1X ONCE IV Last administered on 10/22/19at 13:12; Start 10/22/19 at 13:00; Stop 10/22/19 at 13:59; Status DC Iohexol (Omnipaque 300 Mg/ml) 60 ml 1X ONCE IV Last administered on 10/22/19at 13:58; Start 10/22/19 at 13:45; Stop 10/22/19 at 13:47; Status DC Info (CONTRAST GIVEN -- Rx MONITORING) 1 each PRN DAILY PRN MC SEE COMMENTS; Start 10/22/19 at 14:00; Stop 10/24/19 at 13:59; Status DC Ondansetron HCl (Zofran) 4 mg PRN Q8HRS PRN IV NAUSEA/VOMITING; Start 10/22/19 at 15:30; Stop 10/23/19 at 15:29; Status DC Fentanyl Citrate (Fentanyl 2ml Vial) 50 mcg PRN Q1HR PRN IV PAIN Last administered on 10/22/19at 20:17; Start 10/22/19 at 15:30; Stop 10/23/19 at 15:29; Status DC Lorazepam (Ativan Inj) 1 mg PRN Q4HRS PRN IVP ANXIETY / AGITATION Last administered on 10/26/19at 14:01; Start 10/22/19 at 17:45 Insulin Human Lispro (HumaLOG) 0-9 UNITS TIDWMEALS SQ Last administered on 10/27/19at 12:19; Start 10/23/19 at 08:00 Dextrose (Dextrose 50%-Water Syringe) 12.5 gm PRN Q15MIN PRN IV SEE COMMENTS; Start 10/22/19 at 17:45 Phenazopyridine HCl (Pyridium) 200 mg 1X ONCE PO Last administered on 10/22/19at 20:59; Start 10/22/19 at 19:45; Stop 10/22/19 at 19:48; Status DC Phenazopyridine HCl (Pyridium) 200 mg PRN TID PRN PO URINARY PAIN; Start 10/22/19 at 19:45 Morphine Sulfate (Morphine Sulfate) 4 mg PRN Q2HR PRN IV PAIN Last administered on 10/26/19 06:14; Start 10/22/19 at 19:45 Cyclobenzaprine HCl (Flexeril) 10 mg PRN Q6HRS PRN PO MUSCLE SPASMS Last administered on 10/27/19 08:54; Start 10/22/19 at 20:00 Albuterol Sulfate (Ventolin Neb Soln) 2.5 mg PRN Q4HRS PRN NEB SHORTNESS OF BREATH; Start 10/22/19 at 20:00 Amlodipine Besylate (Norvasc) 5 mg DAILY PO Last administered on 10/25/19 08:38; Start 10/23/19 at 09:00; Stop 10/25/19 at 15:20; Status DC Aspirin (Aspirin Chewable) 162 mg DAILY PO Last administered on 10/27/19 08:52; Start 10/23/19 at 09:00 Atorvastatin Calcium (Lipitor) 20 mg DAILY PO Last administered on 10/27/19 08:53; Start 10/23/19 at 09:00 Budesonide (Pulmicort) 0.5 mg RTBID NEB Last administered on 10/27/19 07:38; Start 10/22/19 at 20:00 Vitamin D (Vitamin D3) 2,000 unit DAILY PO Last administered on 10/27/19 08:53; Start 10/23/19 at 09:00 Furosemide (Lasix) 40 mg BID92 PO Last administered on 10/27/19 08:52; Start 10/23/19 at 09:00 Guaifenesin (Robitussin Dm) 10 ml PRN Q6HRS PRN PO COUGH, 1st CHOICE; Start 10/22/19 at 20:00 Hydralazine HCl (Apresoline) 50 mg TID PO Last administered on 10/27/19 08:54; Start 10/22/19 at 21:00 Polysaccharide Iron Complex (Niferex 150) 150 mg BID PO Last administered on 10/27/19 08:53; Start 10/22/19 at 21:00 Lisinopril (Prinivil) 40 mg DAILY PO Last administered on 8/19/20at 08:54; Start 10/23/19 at 09:00 Multivitamins (Thera M Plus) 1 tab DAILY PO Last administered on 10/27/19 08:53; Start 10/23/19 at 09:00 Nystatin (Nystop) 1 ritu DAILY TP ; Start 10/23/19 at 09:00; Status Cancel Oxycodone HCl (Roxicodone) 10 mg PRN Q4HRS PRN PO SEVERE PAIN 7-10 Last administered on 10/27/19 08:53; Start 10/22/19 at 20:00 Pantoprazole Sodium (Protonix) 40 mg DAILY PO Last administered on 10/27/19 08:53; Start 10/23/19 at 09:00 Potassium Chloride (Klor-Con) 30 meq DAILYWBKFT PO Last administered on 10/27/19 08:52; Start 10/23/19 at 08:00 Senna/Docusate Sodium (Senna Plus) 1 tab BID PO Last administered on 10/27/19 08:53; Start 10/22/19 at 21:00 Trimethoprim/ Sulfamethoxazole (Bactrim Ds) 1 tab BID PO ; Start 10/22/19 at 21:00; Stop 10/22/19 at 20:01; Status DC Carvedilol (Coreg) 25 mg BIDWMEALS PO Last administered on 10/27/19 08:55; Start 10/23/19 at 08:00 Fluticasone Propionate (Flonase) 2 spray DAILY NS Last administered on 10/27/19 08:55; Start 10/23/19 at 09:00 Insulin Human Lispro (HumaLOG) 30 units TIDWMEALS SQ Last administered on 10/23/19at 08:11; Start 10/23/19 at 08:00; Stop 10/23/19 at 12:59; Status DC Insulin Glargine (Lantus Syringe) 45 unit QHS SQ Last administered on 10/26/19at 22:42; Start 10/22/19 at 21:00 Nystatin (Nystop) 1 ritu BID TP Last administered on 10/27/19 08:57; Start 10/22/19 at 21:00 Enoxaparin Sodium (Lovenox Per Pharmacy Prophylaxis Dosing) 1 each PRN DAILY PRN MC SEE COMMENTS; Start 10/22/19 at 20:00 Enoxaparin Sodium (Lovenox 60mg Syringe) 60 mg Q12HR SQ Last administered on 10/27/19at 08:57; Start 10/22/19 at 21:00 Insulin Human Lispro (HumaLOG) 18 units TIDWMEALS SQ Last administered on 10/27/19at 12:20; Start 10/23/19 at 17:00 Perflutren Protein Type A Microsphe (Optison) 0.66 mg STK-MED ONCE IV ; Start 10/24/19 at 13:11; Stop 10/24/19 at 13:11; Status DC Ampicillin Sodium/ Sulbactam Sodium 3 gm/Sodium Chloride 100 ml @ 200 mls/hr Q6HRS IV Last administered on 10/26/19at 12:21; Start 10/24/19 at 16:30; Stop 10/26/19 at 12:35; Status DC Diphenhydramine HCl (Benadryl) 25 mg PRN Q6HRS PRN IVP ITCHING Last administered on 10/26/19at 06:28; Start 10/24/19 at 16:00; Stop 10/26/19 at 12:24; Status DC Lactobacillus Rhamnosus (Culturelle) 1 cap BID PO Last administered on 10/27/19at 08:53; Start 10/24/19 at 21:00 Acetaminophen (Tylenol) 650 mg PRN Q6HRS PRN PO FEVER > 100.5'F Last administered on 10/25/19at 11:57; Start 10/25/19 at 11:30 Amlodipine Besylate (Norvasc) 10 mg DAILY PO Last administered on 10/27/19at 08:54; Start 10/26/19 at 09:00 Multivitamins/ Minerals (I-Madalyn) 1 tab DAILY PO Last administered on 10/27/19at 08:52; Start 10/26/19 at 09:00 Bisacodyl (Dulcolax Tab) 10 mg PRN DAILY PRN PO CONSTIPATION; Start 10/26/19 at 12:00 Docusate Sodium (Colace) 100 mg PRN DAILY PRN PO HARD STOOLS Last administered on 10/27/19at 08:54; Start 10/26/19 at 12:00 Doxycycline Hyclate 100 mg/ Dextrose 100 ml @ 50 mls/hr Q12HR IV Last administered on 10/26/19at 22:22; Start 10/26/19 at 13:00; Stop 10/27/19 at 08:41; Status DC Meropenem 500 mg/ Sodium Chloride 50 ml @ 100 mls/hr Q6HRS IV Last administered on 10/27/19at 12:13; Start 10/26/19 at 18:00 Amino Acids/ Glycerin/ Electrolytes 1,000 ml @ 30 mls/hr Q24H IV Last administered on 10/26/19at 16:23; Start 10/26/19 at 16:00 Doxycycline Hyclate (Vibra-Tab) 100 mg BID PO Last administered on 10/27/19at 08:57; Start 10/27/19 at 09:00 Active Scripts Active Bactrim Ds Tablet (Sulfamethoxazole/Trimethoprim) 1 Each Tablet 1 Tab PO BID Klor-Con 10 (Potassium Chloride) 10 Meq Tablet.er 30 Meq PO DAILYWBKFT 7 Days Amlodipine Besylate 5 Mg Tablet 5 Mg PO DAILY Hydralazine Hcl 25 Mg Tablet 50 Mg PO TID Thera-M Tablet (Multivits,Ca,Minerals/Iron/Fa) 1 Each Tablet 1 Tab PO DAILY MDD 1 Budesonide 0.5 Mg/2 Ml Ampul.neb 0.5 Mg NEB RTBID MDD 1 Guaifenesin Dm Syrup (Guaifenesin/Dextromethorphan) 5 Ml Syrup 10 Ml PO PRN Q6HRS PRN MDD 1 Proair Hfa (Albuterol Sulfate) 8.5 Gm Hfa.aer.ad 2.5 Mg NEB PRN Q4HRS PRN MDD 1 Poly-Iron (Iron Polysaccharides Complex) 150 Mg Capsule 150 Mg PO BID MDD 1 Oxycodone Hcl Immed.release (Oxycodone Hcl) 5 Mg Tablet 10 Mg PO PRN Q4HRS PRN MDD 1 Reported Novolog Flexpen (Insulin Aspart) 100 Unit/1 Ml Insuln.pen 30 SQ TIDWMEALS Aspirin 325 Mg Tablet 0.5 Tab PO DAILY Senna-S Tablet (Sennosides/Docusate Sodium) 1 Each Tablet 1 Each PO BID Nyamyc (Nystatin) 15 Gm Powder 15 Gm TP DAILY Culturelle (Lactobacillus Rhamnosus Gg) 1 Each Capsule 1 Each PO BIDWMEALS Lantus Solostar (Insulin Glargine,Hum.rec.anlog) 100 Unit/1 Ml Insuln.pen 45 Unit SQ QHS [facility] Glucosamine-Chondr Tablet (Glucosamine Hcl/Chondr [place] A Na) 1 Each Tablet 2 Each PO DAILY Flonase Allergy Relief (Fluticasone Propionate) 9.9 Ml Rhine.susp 2 Sprays NS DAILY Diphenhydramine Hcl 50 Mg Capsule 25 Mg PO Q6HRS PRN Vitamin D3 (Cholecalciferol (Vitamin D3)) 1,000 Unit Tablet 2,000 Unit PO DAILY Atorvastatin Calcium 20 Mg Tablet DAILY Furosemide 20 Mg Tablet 40 Mg BID Lisinopril 40 Mg Tablet 40 DAILY Carvedilol 25 Mg Tablet 25 BID Pantoprazole Sodium (Pantoprazole Sodium) 40 Mg Tablet.dr WEBB Vitals/I & O Vital Sign - Last 24 Hours 10/26/19 10/26/19 10/26/19 10/26/19 15:00 17:27 18:56 19:31 Temp 100.1 98.4 100.1 98.4 Pulse 96 96 84 Resp 18 16 B/P (MAP) 147/70 (95) 147/70 135/56 (82) Pulse Ox 97 90 O2 Delivery Room Air Room Air Room Air 10/26/19 10/26/19 10/26/19 10/27/19 20:00 22:21 23:00 03:00 Temp 98.8 98.2 98.8 98.2 Pulse 84 90 88 Resp 20 B/P (MAP) 135/56 140/60 (86) 151/62 (91) Pulse Ox 82 99 O2 Delivery Nasal Cannula Room Air Room Air O2 Flow Rate 2.0 10/27/19 10/27/19 10/27/19 10/27/19 07:00 07:38 08:00 08:54 Temp 98.1 98.1 Pulse 82 88 Resp 20 B/P (MAP) 142/53 (82) 151/62 Pulse Ox 99 99 O2 Delivery Room Air Room Air Room Air 10/27/19 10/27/19 10/27/19 10/27/19 08:54 08:54 08:55 11:00 Temp 98.5 98.5 Pulse 88 88 88 86 Resp 20 B/P (MAP) 151/62 151/62 151/62 134/56 (82) Pulse Ox 96 O2 Delivery Room Air Intake and Output 10/26/19 10/26/19 10/27/19 15:00 23:00 07:00 Intake Total 400 ml 600 ml Balance 400 ml 600 ml Justicifation of Admission Dx: Justifications for Admission: Justification of Admission Dx: Yes RAJ VANEGAS MD Oct 27, 2019 14:42
[2019-10-27 15:00] VITALS: BP 114/49
[2019-10-27 19:00] VITALS: BP 135/45
[2019-10-27] MEDS: INSULIN GLARGINE SYRINGE. SQ SCH (21:52)
[2019-10-27 23:00] VITALS: BP 116/71
[2019-10-28] MEDS: MEROPENEM 500 MG in IV NORMAL SALINE 50ML 50 ML IV SCH ×2 (00:09→06:17)
[2019-10-28 03:00] VITALS: BP 139/57
[2019-10-28 06:28] LABS: BASO # 0.1 x10^3/uL (0.0-0.2); BASO % 1 % (0-3); EOS # 0.2 x10^3/uL (0.0-0.7); EOS % 2 % (0-3); HEMATOCRIT 24.4 % (39.0-53.0); LYMPH % 10 % (24-48); MEAN CORPUSCULAR HEMOGLOBIN 28 pg (25-35); MEAN CORPUSCULAR HGB CONC 33 g/dL (31-37); MEAN CORPUSCULAR VOLUME 84 fL (79-100); MONO # 0.9 x10^3/uL (0.0-1.1); MONO % 10 % (0-9); NEUT # 7.7 x10^3/uL (1.8-7.7); NEUT % 78 % (31-73); PLATELET COUNT 303 x10^3/uL (140-400); RED CELL DISTRIBUTION WIDTH 15.4 % (11.5-14.5)
[2019-10-28 07:00] VITALS: BP 177/70
[2019-10-28 07:08] LABS: CALCIUM 8.9 mg/dL (8.5-10.1); CREATININE 1.9 mg/dL (0.7-1.3); POTASSIUM 3.6 mmol/L (3.5-5.1)
[2019-10-28] MEDS: BUDESONIDE 0.5 MG/2 ML NEBU. NEB SCH (07:24)
[2019-10-28] MEDS: INSULIN LISPRO 300 UNITS/3 ML VIAL. SQ SCH ×6 (08:00→16:52)
[2019-10-28] MEDS: FLUTICASONE 50MCG/NASAL SPRAY 16GM BOTTLE. NS SCH (09:00)
--- NOTE | 2019-10-28 09:03 | PDOC ---
Infectious Disease Note Subjective Subjective Itch has resolved. No back pain No F/C/S/N/V/D/SOA/rash Did not sleep Vital Sign Vital Signs Vital Signs Date Time Temp Pulse Resp B/P (MAP) Pulse Ox O2 Delivery O2 Flow Rate FiO2 10/28/19 07:26 96 Room Air 10/28/19 03:00 98.0 89 19 139/57 (84) 98.0 Physical Exam PHYSICAL EXAM GENERAL: The patient is in bed sitting up and eating without difficulty. Alert and coop HEENT: Pupils are equally round. Oropharynx, pink and moist. No lesions seen. NECK: Supple. LUNGS: Clear to auscultation. No accessory muscle use. HEART: S1 and S2. ABDOMEN: Obese, soft, nontender with bowel sounds present. Obese, Mild yeast on pannus/groin area. EXTREMITIES: No gross edema or cyanosis. He has multiple scabs. No redness noted. He did not have any axillary lymph nodes palpable. SKIN: Warm to touch. No signs of generalized rash. He has small scabs to his right great toe and a fairly superficial appearing ulcer on the distal left TMA without evidence of infection. Distal pulses palpable. He has some scratch luna on his left whalen. NEUROLOGIC: Alert and coop confused but eating and moving all ext Labs Lab Laboratory Tests Test 10/27/19 11:43 10/27/19 16:57 10/27/19 17:51 10/27/19 18:48 Glucose (Fingerstick) 163 mg/dL (70-99) 52 mg/dL (70-99) 62 mg/dL (70-99) 139 mg/dL (70-99) Test 10/27/19 20:43 10/28/19 05:40 10/28/19 07:51 Glucose (Fingerstick) 213 mg/dL (70-99) 138 mg/dL (70-99) White Blood Count 10.0 x10^3/uL (4.0-11.0) Red Blood Count 2.90 x10^6/uL (4.30-5.70) Hemoglobin 8.0 g/dL (13.0-17.5) Hematocrit 24.4 % (39.0-53.0) Mean Corpuscular Volume 84 fL (79-100) Mean Corpuscular Hemoglobin 28 pg (25-35) Mean Corpuscular Hemoglobin Concent 33 g/dL (31-37) Red Cell Distribution Width 15.4 % (11.5-14.5) Platelet Count 303 x10^3/uL (140-400) Neutrophils (%) (Auto) 78 % (31-73) Lymphocytes (%) (Auto) 10 % (24-48) Monocytes (%) (Auto) 10 % (0-9) Eosinophils (%) (Auto) 2 % (0-3) Basophils (%) (Auto) 1 % (0-3) Neutrophils # (Auto) 7.7 x10^3/uL (1.8-7.7) Lymphocytes # (Auto) 1.0 x10^3/uL (1.0-4.8) Monocytes # (Auto) 0.9 x10^3/uL (0.0-1.1) Eosinophils # (Auto) 0.2 x10^3/uL (0.0-0.7) Basophils # (Auto) 0.1 x10^3/uL (0.0-0.2) Sodium Level 141 mmol/L (136-145) Potassium Level 3.6 mmol/L (3.5-5.1) Chloride Level 104 mmol/L (98-107) Carbon Dioxide Level 27 mmol/L (21-32) Anion Gap 10 (6-14) Blood Urea Nitrogen 53 mg/dL (8-26) Creatinine 1.9 mg/dL (0.7-1.3) Estimated GFR (Cockcroft-Gault) 35.0 Glucose Level 144 mg/dL (70-99) Calcium Level 8.9 mg/dL (8.5-10.1) Micro AORTIC VALVE The aortic valve is not well visualized. Doppler and Color Flow revealed no significant aortic regurgitation. There is no significant aortic valvular stenosis. MITRAL VALVE Not well visualized. There is no mitral valve stenosis. Doppler and Color Flow revealed no mitral valve regurgitation noted. TRICUSPID VALVE Not well visualized. Doppler and Color Flow revealed no tricuspid valve regurgitation noted. There is no tricuspid valve stenosis. PULMONIC VALVE The pulmonic valve is not well visualized. Doppler and Color Flow revealed no pulmonic valvular regurgitation. There is no pulmonic valvular stenosis. Objective Assessment 1. Fever etiology unclear - returned again 10/25 but now better d/c'd Unasyn and added Meropenem 10/25 - mild elevation of Procal but Cr elevated 2. Arthralgia- persist -better 3. Cat scratches. 4. Leukocytosis - ? reactive ? Unasyn reaction.- better 5. ANTIBIOTIC ALLERGIES TO ZOSYN AND CEFUROXIME, REACTION UNKNOWN. 6. Peripheral vascular disease.arterial doppler per Card 7. Diabetes with peripheral neuropathy. 8. DIAMOND on Chronic kidney disease. 9. Morbid obesity. 10. Hypertension. Constipation BM 10/24 Chronic nonhealing wounds, lower extremities. No clinical evidence of infection Encephalopathy - lack of sleep ? meropenem but not too many doses Plan Plan of Care D/c Meropenem started 10/25 ? if contributing to MS change but unlikley - needs sleep also CBC in am F/u Bartonella titers to po Doxy Await renal eval - may need Us superficial abrasions on both foot no evidence of OM Cat scratches on LUE, no gross evidence of cellulitis or abscess on todays exam PAD per card/Vacular Monitor closely Stop if any reactions D/w nursing LAURI MO MD Oct 28, 2019 09:03
[2019-10-28] MEDS: SENNOSIDES/DOCUSATE 8.6/50MG TABLET. PO SCH (09:28)
[2019-10-28] MEDS: ASPIRIN CHEWABLE 81 MG TABLET. PO SCH (09:28)
[2019-10-28] MEDS: CHOLECALCIFEROL (VITAMIN D3) 1,000 UNIT TABLET PO SCH (09:29)
[2019-10-28] MEDS: LACTOBACILLUS RHAMNOSUS GG 1 CAPSULE. PO SCH (09:29)
[2019-10-28] MEDS: MULTIVITAMIN I-VITE TABLET. PO SCH (09:29)
[2019-10-28] MEDS: MULTIVITAMIN with MINERAL TABLET. PO SCH (09:29)
[2019-10-28] MEDS: POTASSIUM CHLORIDE 10 MEQ TABLET.ER. PO SCH (09:29)
[2019-10-28] MEDS: CARVEDILOL 12.5 MG TABLET. PO SCH ×2 (09:30→16:51)
[2019-10-28] MEDS: FUROSEMIDE 40 MG TABLET. PO SCH ×2 (09:30→14:25)
[2019-10-28] MEDS: PANTOPRAZOLE 40 MG TABLET.DR. PO SCH (09:31)
[2019-10-28] MEDS: amLODIPine BESYLATE 10 MG TABLET PO SCH (09:31)
[2019-10-28] MEDS: IRON POLYSACCHARIDE COMPLEX 150 MG CAPSULE PO SCH (09:32)
[2019-10-28] MEDS: ATORVASTATIN CALCIUM 20 MG TABLET PO SCH (09:32)
[2019-10-28] MEDS: LISINOPRIL 20 MG TABLET PO SCH (09:32)
[2019-10-28] MEDS: DOXYCYCLINE HYCLATE 100 MG TABLET PO SCH (09:32)
[2019-10-28] MEDS: NYSTATIN TOPICAL POWDER 15GM BOTTLE. TP SCH (09:33)
--- NOTE | 2019-10-28 10:07 | PDOC ---
DATE OF SERVICE DATE: 10/28/19 TIME: 10:00 SUBJECTIVE ROS Pt confused, hallucinating , this is change in status from Yesterday OBJECTIVE Vital Signs Vital Signs Date Time Temp Pulse Resp B/P (MAP) Pulse Ox O2 Delivery O2 Flow Rate FiO2 10/28/19 09:32 93 177/73 10/28/19 08:00 Room Air 2.0 10/28/19 07:26 96 10/28/19 07:00 99.5 22 99.5 I & 0 Intake and Output 10/28/19 07:00 Intake Total 1500 ml Balance 1500 ml Intake Oral 1500 ml # Voids 10 PHYSICAL EXAM Physical Exam GENERAL: Propped up in bed, confused HEENT: Oropharynx, pink and moist. NECK: Supple, thick LUNGS: Clear to auscultation.Decreased at bases, No accessory muscle use. HEART: S1 and S2. ABDOMEN: Obese, nontender EXTREMITIES: No gross edema or cyanosis. superficial ulcer on the distal left TMA SKIN: No signs of generalized rash. Changes of Stasis dermatitis + NEUROLOGIC: Alert and coop No [place], No CVA or SP tenderness DIAGNOSIS/ASSESSMENT Assessment & Plan DIAMOND on CKD - ATN UA unremarkable , Good UOP per RN, Ct scan- distended Urinary bladder Currently on Lasix and Lisinopril , will hold if worsening renal function E-Lytes stable ,Supportive care, avoid Nephrotoxins , Strict I/O, Monitor daily BMP CKD stage 3- based on lab review in [facility] records Cr has been 1.3-2.4 since [address] 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 Renal Cysts - On CT scan - small foci of exophytic density of the bilateral kidneys potentially due to hemorrhagic or complex cysts although small solid lesions not excluded. Nonemergent multi phase CT evaluation versus 6 month follow-up to assess stability is recommended. Mild prominence of the urinary bladder [place], could be due to incomplete distention unless suspicion for cystitis. 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 Peripheral vascular disease-Arterial Duplex Moderate to high-grade right SFA d isease, one-vessel runoff in the right leg No significant left-sided arterial disease with two-vessel runoff Diabetes with peripheral neuropathy. Morbid obesity. Hypertension. Chronic nonhealing wounds, lower extremities. COMMENT/RELEVANT DATA Meds Current Medications Medications (Trade) Dose Ordered Sig/Beatrice Start Time Stop Time Status Last Admin Dose Admin Acetaminophen (Tylenol) 650 mg PRN Q6HRS PRN 10/25/19 11:30 10/25/19 11:57 650 MG Albuterol Sulfate (Ventolin Neb Soln) 2.5 mg PRN Q4HRS PRN 10/22/19 20:00 Amino Acids/ Glycerin/ Electrolytes 1,000 ml @ 30 mls/hr Q24H 10/26/19 16:00 10/27/19 14:46 DC 10/26/19 16:23 30 MLS/HR Amlodipine Besylate (Norvasc) 10 mg DAILY 10/26/19 09:00 10/28/19 09:31 10 MG Ampicillin Sodium/ Sulbactam Sodium 3 gm/Sodium Chloride 100 ml @ 200 mls/hr Q6HRS 10/24/19 16:30 10/26/19 12:35 DC 10/26/19 12:21 200 MLS/HR Aspirin (Aspirin Chewable) 162 mg DAILY 10/23/19 09:00 10/28/19 09:28 162 MG Atorvastatin Calcium (Lipitor) 20 mg DAILY 10/23/19 09:00 10/28/19 09:32 20 MG Bisacodyl (Dulcolax Tab) 10 mg PRN DAILY PRN 10/26/19 12:00 Budesonide (Pulmicort) 0.5 mg RTBID 10/22/19 20:00 10/28/19 07:24 0.5 MG Carvedilol (Coreg) 25 mg BIDWMEALS 10/23/19 08:00 10/28/19 09:30 25 MG Cyclobenzaprine HCl (Flexeril) 10 mg PRN Q6HRS PRN 10/22/19 20:00 10/27/19 21:52 10 MG Dextrose (Dextrose 50%-Water Syringe) 12.5 gm PRN Q15MIN PRN 10/22/19 17:45 10/27/19 17:56 12.5 GM Diphenhydramine HCl (Benadryl) 25 mg PRN Q6HRS PRN 8/16/20 16:00 10/26/19 12:24 DC 10/26/19 06:28 25 MG Docusate Sodium (Colace) 100 mg PRN DAILY PRN 10/26/19 12:00 10/27/19 08:54 100 MG Doxycycline Hyclate (Vibra-Tab) 100 mg BID 10/27/19 09:00 10/28/19 09:32 100 MG Doxycycline Hyclate 100 mg/ Dextrose 100 ml @ 50 mls/hr Q12HR 10/26/19 13:00 10/27/19 08:41 DC 10/26/19 22:22 50 MLS/HR Enoxaparin Sodium (Lovenox 60mg Syringe) 60 mg Q12HR 10/22/19 21:00 10/28/19 09:31 60 MG Enoxaparin Sodium (Lovenox Per Pharmacy Prophylaxis Dosing) 1 each PRN DAILY PRN 10/22/19 20:00 Fentanyl Citrate (Fentanyl 2ml Vial) 50 mcg PRN Q1HR PRN 10/22/19 15:30 10/23/19 15:29 DC 10/22/19 20:17 50 MCG Fluticasone Propionate (Flonase) 2 spray DAILY 10/23/19 09:00 10/28/19 09:00 2 SPRAY Furosemide (Lasix) 40 mg [id number] 10/23/19 09:00 10/28/19 09:30 40 MG Guaifenesin (Robitussin Dm) 10 ml PRN Q6HRS PRN 10/22/19 20:00 Hydralazine HCl (Apresoline) 50 mg TID 10/22/19 21:00 10/28/19 09:32 50 MG Info (CONTRAST GIVEN -- Rx MONITORING) 1 each PRN DAILY PRN 10/22/19 14:00 10/24/19 13:59 DC Insulin Glargine (Lantus Syringe) 45 unit QHS 10/22/19 21:00 10/27/19 21:52 45 UNIT Insulin Human Lispro (HumaLOG) 18 units TIDWMEALS 10/23/19 17:00 10/27/19 12:20 18 UNITS Iohexol (Omnipaque 300 Mg/ml) 60 ml 1X ONCE 10/22/19 13:45 10/22/19 13:47 DC 10/22/19 13:58 60 ML Lactobacillus Rhamnosus (Culturelle) 1 cap BID 10/24/19 21:00 10/28/19 09:29 1 CAP Lisinopril (Prinivil) 40 mg DAILY 10/23/19 09:00 10/28/19 09:32 40 MG Lorazepam (Ativan Inj) 1 mg PRN Q4HRS PRN 10/22/19 17:45 10/28/19 02:19 1 MG Meropenem 500 mg/ Sodium Chloride 50 ml @ 100 mls/hr Q6HRS 10/26/19 18:00 10/28/19 09:03 DC 10/28/19 06:17 100 MLS/HR Morphine Sulfate (Morphine Sulfate) 4 mg PRN Q2HR PRN 10/22/19 19:45 10/26/19 06:14 4 MG Multivitamins (Thera M Plus) 1 tab DAILY 10/23/19 09:00 10/28/19 09:29 1 TAB Multivitamins/ Minerals (I-Madalyn) 1 tab DAILY 10/26/19 09:00 10/28/19 09:29 1 TAB Nystatin (Nystop) 1 ritu BID 10/22/19 21:00 10/28/19 09:33 1 RITU Ondansetron HCl (Zofran) 4 mg PRN Q8HRS PRN 10/22/19 15:30 10/23/19 15:29 DC Oxycodone HCl (Roxicodone) 10 mg PRN Q4HRS PRN 10/22/19 20:00 10/27/19 15:32 10 MG Pantoprazole Sodium (Protonix) 40 mg DAILY 10/23/19 09:00 10/28/19 09:31 40 MG Perflutren Protein Type A Microsphe (Optison) 0.66 mg STK-MED ONCE 10/24/19 13:11 10/24/19 13:11 DC Phenazopyridine HCl (Pyridium) 200 mg PRN TID PRN 10/22/19 19:45 Polysaccharide Iron Complex (Niferex 150) 150 mg BID 10/22/19 21:00 10/28/19 09:32 150 MG Potassium Chloride (Klor-Con) 30 meq DAILYWBKFT 10/23/19 08:00 10/28/19 09:29 30 MEQ Senna/Docusate Sodium (Senna Plus) 1 tab BID 10/22/19 21:00 10/28/19 09:28 1 TAB Sodium Chloride 500 ml @ 500 mls/hr 1X ONCE 10/22/19 13:00 10/22/19 13:59 DC 10/22/19 13:12 500 MLS/HR Trimethoprim/ Sulfamethoxazole (Bactrim Ds) 1 tab BID 10/22/19 21:00 10/22/19 20:01 DC Vitamin D (Vitamin D3) 2,000 unit DAILY 10/23/19 09:00 10/28/19 09:29 2,000 UNIT Lab Laboratory Tests Test 10/27/19 11:43 10/27/19 16:57 10/27/19 17:51 10/27/19 18:48 Glucose (Fingerstick) 163 mg/dL (70-99) 52 mg/dL (70-99) 62 mg/dL (70-99) 139 mg/dL (70-99) Test 10/27/19 20:43 10/28/19 05:40 10/28/19 07:51 Glucose (Fingerstick) 213 mg/dL (70-99) 138 mg/dL (70-99) White Blood Count 10.0 x10^3/uL (4.0-11.0) Red Blood Count 2.90 x10^6/uL (4.30-5.70) Hemoglobin 8.0 g/dL (13.0-17.5) Hematocrit 24.4 % (39.0-53.0) Mean Corpuscular Volume 84 fL (79-100) Mean Corpuscular Hemoglobin 28 pg (25-35) Mean Corpuscular Hemoglobin Concent 33 g/dL (31-37) Red Cell Distribution Width 15.4 % (11.5-14.5) Platelet Count 303 x10^3/uL (140-400) Neutrophils (%) (Auto) 78 % (31-73) Lymphocytes (%) (Auto) 10 % (24-48) Monocytes (%) (Auto) 10 % (0-9) Eosinophils (%) (Auto) 2 % (0-3) Basophils (%) (Auto) 1 % (0-3) Neutrophils # (Auto) 7.7 x10^3/uL (1.8-7.7) Lymphocytes # (Auto) 1.0 x10^3/uL (1.0-4.8) Monocytes # (Auto) 0.9 x10^3/uL (0.0-1.1) Eosinophils # (Auto) 0.2 x10^3/uL (0.0-0.7) Basophils # (Auto) 0.1 x10^3/uL (0.0-0.2) Sodium Level 141 mmol/L (136-145) Potassium Level 3.6 mmol/L (3.5-5.1) Chloride Level 104 mmol/L (98-107) Carbon Dioxide Level 27 mmol/L (21-32) Anion Gap 10 (6-14) Blood Urea Nitrogen 53 mg/dL (8-26) Creatinine 1.9 mg/dL (0.7-1.3) Estimated GFR (Cockcroft-Gault) 35.0 Glucose Level 144 mg/dL (70-99) Calcium Level 8.9 mg/dL (8.5-10.1) Results All relevant outside records, renal labs, imaging studies, telemetry/EKG's were reviewed. Justicifation of Admission Dx: Justifications for Admission: Justification of Admission Dx: Yes DINESH SWAN MD Oct 28, 2019 10:07
[2019-10-28 11:00] VITALS: BP 139/97
--- NOTE | 2019-10-28 12:10 | NUR ---
SS following up with discharge planning. Insurance authorization received for [facility] in [facility], ; fax [phone]. Physician notified. SS currently awaiting discharge orders and will proceed accordingly.
--- NOTE | 2019-10-28 13:02 | PDOC ---
Date of Service: DATE: 10/28/19 TIME: 13:01 Subjective: Subjective: No GI complaints. Objective: Vital Signs: Vital Signs Date Time Temp Pulse Resp B/P (MAP) Pulse Ox O2 Delivery O2 Flow Rate FiO2 10/28/19 11:00 99.5 90 20 139/97 (111) 98 Room Air 99.5 10/28/19 08:00 2.0 Labs: Laboratory Tests Test 10/27/19 16:57 10/27/19 17:51 10/27/19 18:48 10/27/19 20:43 Glucose (Fingerstick) 52 mg/dL 62 mg/dL 139 mg/dL 213 mg/dL Test 10/28/19 05:40 10/28/19 07:51 10/28/19 11:39 White Blood Count 10.0 x10^3/uL Red Blood Count 2.90 x10^6/uL Hemoglobin 8.0 g/dL Hematocrit 24.4 % Mean Corpuscular Volume 84 fL Mean Corpuscular Hemoglobin 28 pg Mean Corpuscular Hemoglobin Concent 33 g/dL Red Cell Distribution Width 15.4 % Platelet Count 303 x10^3/uL Neutrophils (%) (Auto) 78 % Lymphocytes (%) (Auto) 10 % Monocytes (%) (Auto) 10 % Eosinophils (%) (Auto) 2 % Basophils (%) (Auto) 1 % Neutrophils # (Auto) 7.7 x10^3/uL Lymphocytes # (Auto) 1.0 x10^3/uL Monocytes # (Auto) 0.9 x10^3/uL Eosinophils # (Auto) 0.2 x10^3/uL Basophils # (Auto) 0.1 x10^3/uL Sodium Level 141 mmol/L Potassium Level 3.6 mmol/L Chloride Level 104 mmol/L Carbon Dioxide Level 27 mmol/L Anion Gap 10 Blood Urea Nitrogen 53 mg/dL Creatinine 1.9 mg/dL Estimated GFR (Cockcroft-Gault) 35.0 Glucose Level 144 mg/dL Calcium Level 8.9 mg/dL Glucose (Fingerstick) 138 mg/dL 230 mg/dL PE: GEN: NAD - up in chair eating lunch LUNGS: clear HEART: RRR ABD: non-tender NEURO/PSYCH: A & O 3 A/P: LOUISE/ACD -- Continue PPI and iron, DC per primary/ Justicifation of Admission Dx: Justifications for Admission: Justification of Admission Dx: Yes MATT MARVIN Oct 28, 2019 13:02
[2019-10-28 14:11] LABS: B HENSELAE IGG Negative titer (Neg:<1:320); B QUINTANA IGG Negative titer (Neg:<1:320); B QUINTANA IGM Negative titer (Neg:<1:100); BAR HENSELAE IGM Negative titer (Neg:<1:100)
[2019-10-28] MEDS ORDERED: DOXY100T PO (14:20)
--- NOTE | 2019-10-28 14:58 | SNU/HH DC ---
DISCHARGE ORDERS DISCHARGE INFORMATION: DISCHARGE DATE: Oct 28, 2019 FINAL DIAGNOSIS Problems Medical Problems: (1) Elevated troponin Status: Acute (2) Wound of foot Status: Acute CONDITION ON DISCHARGE: Stable CODE STATUS: Code Status: Full MCC: SNF STAY <30 DAYS: Yes POST DISCHARGE ORDERS: ACTIVITY ORDERS: Activity as tolerated WEIGHT BEARING STATUS: As tolerated DIET AFTER DISCHARGE: Cardiac WOUND/INCISION CARE: Keep wound/cast CDI CHECKS AFTER DISCHARGE: CHECKS AFTER DISCHARGE: Check blood press - daily, Check blood sugar, ac/hs, Check your Temp as needed, Weigh Yourself Daily TREATMENT/EQUIPMENT ORDERS: ADAPTIVE EQUIPMENT NEEDED: Cane, Front wheeled walker Physical Therapy For: Evalulation/Treatment Occupational Therapy For: Evaluation/Treatment Speech Language Pathology For: Evaluation/Treatment DISCHARGE MEDICATIONS: Home Meds Active Scripts Doxycycline Hyclate (DOXYCYCLINE HYCLATE) 100 Mg Tablet, 100 MG PO BID for bacterial infection for 3 Days, #6 TAB Prov:RAJ VANEGAS MD 10/28/19 Potassium Chloride (KLOR-CON 10) 10 Meq Tablet.er, 30 MEQ PO DAILYWBKFT for low K for 7 Days, #21 TAB.SR Prov:VENTURA JULES MD 11/03/18 Amlodipine Besylate (AMLODIPINE BESYLATE) 5 Mg Tablet, 5 MG PO DAILY for htn, #90 TAB Prov:VENTURA JULES MD 11/03/18 Hydralazine Hcl (HYDRALAZINE HCL) 25 Mg Tablet, 50 MG PO TID for htn, #90 TAB Prov:VENTURA JULES MD 11/03/18 Multivits,Ca,Minerals/Iron/Fa (THERA-M TABLET) 1 Each Tablet, 1 TAB PO DAILY for mvi MDD 1, #30 TAB Prov:VENTURA JULES MD 05/21/18 Budesonide (BUDESONIDE) 0.5 Mg/2 Ml Ampul.neb, 0.5 MG NEB RTBID for copd MDD 1, #60 EACH Prov:VENTURA JULES MD 05/21/18 Guaifenesin/Dextromethorphan (GUAIFENESIN DM SYRUP) 5 Ml Syrup, 10 ML PO PRN Q6HRS PRN for COUGH, 1st CHOICE MDD 1, #30 MISC Prov:VENTURA JULES MD 05/21/18 Albuterol Sulfate (Proair Hfa) 8.5 Gm Hfa.aer.ad, 2.5 MG NEB PRN Q4HRS PRN for SHORTNESS OF BREATH MDD 1, #60 INHALER Prov:VENTURA JULES MD 05/21/18 Iron Polysaccharides Complex (POLY-IRON) 150 Mg Capsule, 150 MG PO BID for LOUISE MDD 1, #60 CAP Prov:VENTURA JULES MD 05/21/18 Oxycodone Hcl (OXYCODONE HCL IMMED.RELEASE ) 5 Mg Tablet, 10 MG PO PRN Q4HRS PRN for SEVERE PAIN MDD 1, #20 TAB-CAP Prov:VENTURA JULES MD 05/21/18 Reported Medications Aspirin (ASPIRIN) 325 Mg Tablet, 0.5 TAB PO DAILY, #30 TAB 5 Refills 10/25/15 Sennosides/Docusate Sodium (SENNA-S TABLET) 1 Each Tablet, 1 EACH PO BID 10/25/15 Nystatin (NYAMYC) 15 Gm Powder, 15 GM TP DAILY 10/25/15 Lactobacillus Rhamnosus Gg (CULTURELLE) 1 Each Capsule, 1 EACH PO BIDWMEALS 10/25/15 Insulin Glargine,Hum.rec.anlog (LANTUS SOLOSTAR) 100 Unit/1 Ml Insuln.pen, 45 UNIT SQ QHS, #15 ML 3 Refills 10/25/15 Glucosamine Hcl/Chondr [place] A Na ([facility] GLUCOSAMINE-CHONDR TABLET) 1 Each Tablet, 2 EACH PO DAILY 10/25/15 Fluticasone Propionate (Flonase Allergy Relief) 9.9 Ml Martha.susp, 2 SPRAYS NS DAILY, BOTTLE 10/25/15 Diphenhydramine Hcl (DIPHENHYDRAMINE HCL) 50 Mg Capsule, 25 MG PO Q6HRS PRN for ALLERGIES 10/25/15 Cholecalciferol (Vitamin D3) (VITAMIN D3) 1,000 Unit Tablet, 2000 UNIT PO DAILY 10/25/15 Atorvastatin Calcium (ATORVASTATIN CALCIUM) 20 Mg Tablet, DAILY, #90 10/25/15 Furosemide (FUROSEMIDE) 20 Mg Tablet, 40 MG BID, #360 10/25/15 Lisinopril (LISINOPRIL) 40 Mg Tablet, 40 DAILY, #90 10/25/15 Carvedilol (CARVEDILOL) 25 Mg Tablet, 25 BID, #14 10/25/15 Pantoprazole Sodium (PANTOPRAZOLE SODIUM ) 40 Mg Tablet.dr, DAILY, #90 10/25/15 Discontinued Reported Medications Insulin Aspart (NOVOLOG FLEXPEN) 100 Unit/1 Ml Insuln.pen, 30 SQ TIDWMEALS, SYR 05/09/16 Discontinued Scripts Sulfamethoxazole/Trimethoprim (BACTRIM DS TABLET) 1 Each Tablet, 1 TAB PO BID, #14 TAB Prov:DANIEL CAN APRN 12/08/18 RAJ VANEGAS MD Oct 28, 2019 14:58
[2019-10-28 15:00] VITALS: BP 155/38
--- NOTE | 2019-10-28 15:02 | NUR ---
SS following up with discharge planning. Discharge orders received for [facility] in [facility], ; fax [phone]. SS phoned and faxed discharge orders to [facility]. Pt will discharge today and go to [facility] at 1630 via [facility] ambulance. Pt, pt's RN, and pt's spouse notified.
--- NOTE | 2019-10-28 15:05 | PDOC3 ---
Discharge Summary Visit Information Date of Admission: Oct 22, 2019 Date of Discharge: Oct 28, 2019 Admitting Diagnosis Comment: foot wounds, wound care eval, chest pain, elevated troponin , trend, check labs weakness and debility, unable ot care for himself, poor skin care, rash to groin, morbid obesity, BMI 50, with current severe malnutrition CKD 3, hydrate, Final Diagnosis Problems Medical Problems: (1) Elevated troponin Status: Acute (2) Wound of foot Status: Acute Acute renal failure secondary to acute tubular necrosis CKD stage III creatinine has been 1.3-2.4 since 2016 Renal cysts noted on imaging studies follow-up in 6 months is recommended Fever of unclear etiology on antibiotics as per infectious disease, transitioned to oral doxycycline. Borrelia titers still pending Peripheral vascular disease Diabetes with peripheral neuropathy Morbid obesity Essential hypertension Chronic nonhealing wounds lower extremity without signs of infection Foot wound Debility Toxic encephalopathy Sleep deprivation Brief Hospital Course Allergies Allergies Coded Allergies Type Severity Reaction Last Updated Verified cefuroxime Allergy Intermediate 11/02/18 Yes piperacillin Adverse Reaction Intermediate RASH 11/02/18 Yes tazobactam Adverse Reaction Intermediate RASH 11/02/18 Yes zolpidem Adverse Reaction Intermediate HALLUCINATIONS 11/02/18 Yes glipizide Adverse Reaction Mild SENSITIVITY TO SUN 11/02/18 Yes Uncoded Allergies Type Severity Reaction Last Updated Verified DUST Allergy Mild SNEEZING 10/25/15 Vital Signs Vital Signs Date Time Temp Pulse Resp B/P (MAP) Pulse Ox O2 Delivery O2 Flow Rate FiO2 10/28/19 14:24 90 139/97 10/28/19 11:00 99.5 20 98 Room Air 99.5 10/28/19 08:00 2.0 Lab Results Laboratory Tests Test 10/26/19 16:59 10/26/19 22:29 10/27/19 04:30 10/27/19 08:19 Glucose (Fingerstick) 157 mg/dL (70-99) 121 mg/dL (70-99) 141 mg/dL (70-99) White Blood Count 11.8 x10^3/uL (4.0-11.0) Red Blood Count 2.73 x10^6/uL (4.30-5.70) Hemoglobin 7.5 g/dL (13.0-17.5) Hematocrit 23.1 % (39.0-53.0) Mean Corpuscular Volume 85 fL (79-100) Mean Corpuscular Hemoglobin 28 pg (25-35) Mean Corpuscular Hemoglobin Concent 33 g/dL (31-37) Red Cell Distribution Width 15.5 % (11.5-14.5) Platelet Count 268 x10^3/uL (140-400) Neutrophils (%) (Auto) 80 % (31-73) Lymphocytes (%) (Auto) 9 % (24-48) Monocytes (%) (Auto) 9 % (0-9) Eosinophils (%) (Auto) 2 % (0-3) Basophils (%) (Auto) 0 % (0-3) Neutrophils # (Auto) 9.5 x10^3/uL (1.8-7.7) Lymphocytes # (Auto) 1.0 x10^3/uL (1.0-4.8) Monocytes # (Auto) 1.1 x10^3/uL (0.0-1.1) Eosinophils # (Auto) 0.2 x10^3/uL (0.0-0.7) Basophils # (Auto) 0.0 x10^3/uL (0.0-0.2) Sodium Level 143 mmol/L (136-145) Potassium Level 3.8 mmol/L (3.5-5.1) Chloride Level 104 mmol/L (98-107) Carbon Dioxide Level 27 mmol/L (21-32) Anion Gap 12 (6-14) Blood Urea Nitrogen 39 mg/dL (8-26) Creatinine 1.9 mg/dL (0.7-1.3) Estimated GFR (Cockcroft-Gault) 35.0 BUN/Creatinine Ratio 21 (6-20) Glucose Level 136 mg/dL (70-99) Calcium Level 8.7 mg/dL (8.5-10.1) Total Bilirubin 0.2 mg/dL (0.2-1.0) Aspartate Amino Transf (AST/SGOT) 23 U/L (15-37) Alanine Aminotransferase (ALT/SGPT) 23 U/L (16-63) Alkaline Phosphatase 78 U/L (46-116) Total Protein 6.7 g/dL (6.4-8.2) Albumin 1.9 g/dL (3.4-5.0) Albumin/Globulin Ratio 0.4 (1.0-1.7) Test 10/27/19 11:43 10/27/19 16:57 10/27/19 17:51 10/27/19 18:48 Glucose (Fingerstick) 163 mg/dL (70-99) 52 mg/dL (70-99) 62 mg/dL (70-99) 139 mg/dL (70-99) Test 10/27/19 20:43 10/28/19 05:40 10/28/19 07:51 10/28/19 11:39 Glucose (Fingerstick) 213 mg/dL (70-99) 138 mg/dL (70-99) 230 mg/dL (70-99) White Blood Count 10.0 x10^3/uL (4.0-11.0) Red Blood Count 2.90 x10^6/uL (4.30-5.70) Hemoglobin 8.0 g/dL (13.0-17.5) Hematocrit 24.4 % (39.0-53.0) Mean Corpuscular Volume 84 fL (79-100) Mean Corpuscular Hemoglobin 28 pg (25-35) Mean Corpuscular Hemoglobin Concent 33 g/dL (31-37) Red Cell Distribution Width 15.4 % (11.5-14.5) Platelet Count 303 x10^3/uL (140-400) Neutrophils (%) (Auto) 78 % (31-73) Lymphocytes (%) (Auto) 10 % (24-48) Monocytes (%) (Auto) 10 % (0-9) Eosinophils (%) (Auto) 2 % (0-3) Basophils (%) (Auto) 1 % (0-3) Neutrophils # (Auto) 7.7 x10^3/uL (1.8-7.7) Lymphocytes # (Auto) 1.0 x10^3/uL (1.0-4.8) Monocytes # (Auto) 0.9 x10^3/uL (0.0-1.1) Eosinophils # (Auto) 0.2 x10^3/uL (0.0-0.7) Basophils # (Auto) 0.1 x10^3/uL (0.0-0.2) Sodium Level 141 mmol/L (136-145) Potassium Level 3.6 mmol/L (3.5-5.1) Chloride Level 104 mmol/L (98-107) Carbon Dioxide Level 27 mmol/L (21-32) Anion Gap 10 (6-14) Blood Urea Nitrogen 53 mg/dL (8-26) Creatinine 1.9 mg/dL (0.7-1.3) Estimated GFR (Cockcroft-Gault) 35.0 Glucose Level 144 mg/dL (70-99) Calcium Level 8.9 mg/dL (8.5-10.1) Laboratory Tests Test 10/27/19 16:57 10/27/19 17:51 10/27/19 18:48 10/27/19 20:43 Glucose (Fingerstick) 52 mg/dL (70-99) 62 mg/dL (70-99) 139 mg/dL (70-99) 213 mg/dL (70-99) Test 10/28/19 05:40 10/28/19 07:51 10/28/19 11:39 White Blood Count 10.0 x10^3/uL (4.0-11.0) Red Blood Count 2.90 x10^6/uL (4.30-5.70) Hemoglobin 8.0 g/dL (13.0-17.5) Hematocrit 24.4 % (39.0-53.0) Mean Corpuscular Volume 84 fL (79-100) Mean Corpuscular Hemoglobin 28 pg (25-35) Mean Corpuscular Hemoglobin Concent 33 g/dL (31-37) Red Cell Distribution Width 15.4 % (11.5-14.5) Platelet Count 303 x10^3/uL (140-400) Neutrophils (%) (Auto) 78 % (31-73) Lymphocytes (%) (Auto) 10 % (24-48) Monocytes (%) (Auto) 10 % (0-9) Eosinophils (%) (Auto) 2 % (0-3) Basophils (%) (Auto) 1 % (0-3) Neutrophils # (Auto) 7.7 x10^3/uL (1.8-7.7) Lymphocytes # (Auto) 1.0 x10^3/uL (1.0-4.8) Monocytes # (Auto) 0.9 x10^3/uL (0.0-1.1) Eosinophils # (Auto) 0.2 x10^3/uL (0.0-0.7) Basophils # (Auto) 0.1 x10^3/uL (0.0-0.2) Sodium Level 141 mmol/L (136-145) Potassium Level 3.6 mmol/L (3.5-5.1) Chloride Level 104 mmol/L (98-107) Carbon Dioxide Level 27 mmol/L (21-32) Anion Gap 10 (6-14) Blood Urea Nitrogen 53 mg/dL (8-26) Creatinine 1.9 mg/dL (0.7-1.3) Estimated GFR (Cockcroft-Gault) 35.0 Glucose Level 144 mg/dL (70-99) Calcium Level 8.9 mg/dL (8.5-10.1) Glucose (Fingerstick) 138 mg/dL (70-99) 230 mg/dL (70-99) Brief Hospital Course Greater than 35 minutes were spent in the discharge process with the patient in counseling coordination of care and arrangements for a safe transfer History of Present Illness Mr. Herrera is a 74 year old male admti with mult problems. poor self care. Left arm swelling for a week. 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 he has a rash on his groin from sitting in his own urine at home thurman placed here and he complains of burning pain from the cath, he says he has $1400 prosthetic shoes for his amp foot , but doesnt know where they are, possibly here. 10/25/2019 Patient seen and examined We are considering getting him to a [facility] unit today but he just spiked a fever 102.1 Discussed with RN Discussed with case management Chart reviewed 10/26/19 Pt seen and examined PT/OT in the room during encounter Pt pleasantly confused, NAD Left foot dressing changed 10/25/19 - no apparent erythema, or sign of infection Chart reviewed Discussed with RN 10/27/19 No acute events reported overnight, case discussed with nursing staff patient in no acute distress no complaints during my visit 10/28/2019 Patient not present acute events overnight patient does have some encephalopathy and seems to be quite confused nevertheless he has not had proper sleep over the last couple days. Patient has also some cat scratches and still having some leukocytosis which could have been a reaction to Unasyn antibiotics were switche d to oral route by her infectious disease doctor certain titers are still pending for Bartonella. Patient was deemed appropriate for discharge to continue his recovery at the [facility] facility. Hopefully his mental status will improve over the next couple days once he is settled into his new environment recommendations from her infectious disease doctor as follows: 1. Fever etiology unclear - returned again 10/25 but now better d/c'd Unasyn and added Meropenem 10/25 - mild elevation of Procal but Cr elevated 2. Arthralgia- persist -better 3. Cat scratches. 4. Leukocytosis - ? reactive ? Unasyn reaction.- better 5. ANTIBIOTIC ALLERGIES TO ZOSYN AND CEFUROXIME, REACTION UNKNOWN. 6. Peripheral vascular disease.arterial doppler per Card 7. Diabetes with peripheral neuropathy. 8. DIAMOND on Chronic kidney disease. 9. Morbid obesity. 10. Hypertension. Constipation BM 10/24 Chronic nonhealing wounds, lower extremities. No clinical evidence of infection Encephalopathy - lack of sleep ? meropenem but not too many doses Plan Plan of Care D/c Meropenem started 10/25 ? if contributing to MS change but unlikley - needs sleep also CBC in am F/u Bartonella titers to po Doxy Await renal eval - may need Us superficial abrasions on both foot no evidence of OM Cat scratches on LUE, no gross evidence of cellulitis or abscess on todays exam PAD per card/Vacular General: Cooperative, No acute distress Heart: Regular rate, Normal S1, Normal S2 Lungs: Clear Abdomen: Soft, No tenderness Extremities: No cyanosis, Other (The transmetatarsal amputation has superficial ulceration. There is minimal swelling, I do not see evidence of osteomyelitis clinically.) Skin: Other (The left TMA reveals a 1.3 x 0.6 x 0.1 open ulceration. The surrounding tissue has callus formation. There is no surrounding erythema or edema. A sterile curette was used to debride the callus with minimal bleeding which was controlled with pressure. The right great toe reveals a one by one thickened callus. Sterile curette was used to remove callus following appl ication of topical lidocaine to soften the callus. Minimal bleeding occurred which was controlled with pressure.) Assessment Assessment [facility] [address] [place] [address] IMAGING REPORT Signed PATIENT: LACI HERRERA ACCOUNT: [id number] : 1945 LOCATION: [address] [place] [address] AGE: 74 SEX: M EXAM STATUS: ADM IN ORD. PHYSICIAN: HALIE EASTON MD REASON: WOUNDS/CARDIOLOGY TO READ PROCEDURE: DUPLEX LOWER EXTREMITY BILAT MR#: [id number] [facility] Date of Study: 10/24/2019 Ordering Physician: HALIE EASTON, Referring Physician: HALIE EASTON, Tech: Salvador Sanchez MBA, RDMS, RVT, RDCS, RTR APPROVED REPORT Patient Location: IN-PATIENT Indications wounds VELOCITY AND DOPPLER WAVEFORM ANALYSIS RIGHT cm/sec Waveform Severity LEFT cm/sec Waveform Severity dCFA 128.0 Triphasic dCFA 172.0 Triphasic Fem Art Prox. 173.0 Triphasic Fem Art Prox. 58.0 Triphasic Fem Art Mid. 378.0 Triphasic Fem Art Mid. 163.0 Triphasic Fem Art Dist. 107.0 Triphasic Fem Art Dist. 140.0 Triphasic Pop Art(Fossa) 124.0 Triphasic Pop Art(AK) 76.0 Triphasic [employer]PER[employer]ENT Prox. 47.0 Triphasic [employer] SUPER[employer]ENT Prox. 101.0 Triphasic [employer]ENT Dist. 121.0 Triphasic [employer]ENT Dist. 89.0 Triphasic CORINNA Prox. CORINNA Prox. 109.0 Triphasic DPA 55 Monophasic DPA 49 Triphasic Findings Grayscale images of the right and left lower extremity arterial vessels demonstrate moderate diffuse plaque. The bilateral profunda femoris were not well visualized. Bilateral peroneal arteries were not well visualized. On the right side there is likely a greater than 50% stenosis involving the mid SFA. There is one-vessel runoff below the knee and the anterior tibial artery i s not visualized. On the left side there is no significant focal obstruction identified with mostly triphasic and biphasic waveforms throughout the left leg. Critical Notification Critical Value: No <Conclusion> 1. 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 No significant left-sided arterial disease with two-vessel runoff Signed by : Halie Easton, Electronically Approved : 10/24/2019 11:32:04 CT of the abdomen and pelvis IMPRESSION: 1. There is cholelithiasis. 2. Appendix is not confidently identified although no significant pericecal inflammatory type change. There is no evidence of bowel obstruction. There is mild retained stool in the colon. 3. There is nonspecific strandy change of the perinephric fat bilaterally. There is no hydronephrosis. There are some small foci of exophytic density of the bilateral kidneys potentially due to hemorrhagic or complex cysts although small solid lesions not excluded. Nonemergent multi phase CT evaluation versus 6 month follow-up to assess stability is recommended. 4. There is mild prominence of the urinary bladder [place], could be due to incomplete distention unless suspicion for cystitis. 5. There is small nonspecific lytic lesion of the right T12 vertebral body. Electronically signed by: Gama Yousif MD (10/22/2019 2:34 PM) [id number] Discharge Information Condition at Discharge: Improved Follow Up: Weeks Disposition/Orders: D/C to Home Scheduled Amlodipine Besylate (Amlodipine Besylate) 5 Mg Tablet, 5 MG PO DAILY for htn, #90 Prescribed by: VENTURA JULES on 11/03/18 1007 Last Action: Continued on 10/22/191948 by KATHRIN PETERSON Aspirin (Aspirin) 325 Mg Tablet, 0.5 TAB PO DAILY, #30 Ref 5 (Reported) Entered as Reported by: ALEJANDRA HERRON on 10/25/15 1603 Last Action: Continued on 10/22/191948 by KATHRIN PETERSON Atorvastatin Calcium (Atorvastatin Calcium) 20 Mg Tablet, DAILY, #90 (Reported) Entered as Reported by: KELI MARTINEZ on 10/25/15 0220 Last Action: Continued on 10/22/191948 by KATHRIN PETERSON Budesonide (Budesonide) 0.5 Mg/2 Ml Ampul.neb, 0.5 MG NEB RTBID for copd MDD 1, #60 Prescribed by: VENTURA JULES on 05/21/18 1004 Last Action: Continued on 10/22/191948 by KATHRIN PETERSON Carvedilol (Carvedilol) 25 Mg Tablet, 25 BID, #14 (Reported) Entered as Reported by: KELI MARTINEZ on 10/25/15219 Last Action: Converted on 10/22/191948 by KATHRIN PETERSON Cholecalciferol (Vitamin D3) (Vitamin D3) 1,000 Unit Tablet, 2,000 UNIT PO DAILY, (Reported) Entered as Reported by: ALEJANDRA HERRON on 10/25/151602 Last Action: Continued on 10/22/191948 by KATHRIN PETERSON Doxycycline Hyclate (Doxycycline Hyclate) 100 Mg Tablet, 100 MG PO BID for bacterial infection for 3 Days, #6 Prescribed by: RAJ VANEGAS MD on 10/28/19 1420 Fluticasone Propionate (Flonase Allergy Relief) 9.9 Ml [place].susp, 2 SPRAYS NS DAILY, (Reported) Entered as Reported by: ALEJANDRA HERRON on 10/25/151602 Last Action: Converted on 10/22/191948 by KATHRIN PETERSON Furosemide (Furosemide) 20 Mg Tablet, 40 MG BID, #360 (Reported) Entered as Reported by: KELI MARTINEZ on 10/25/15219 Last Action: Continued on 10/22/191948 by KATHRIN PETERSON Glucosamine Hcl/Chondr [place] A Na (Cvs Glucosamine-Chondr Tablet) 1 Each Tablet, 2 EACH PO DAILY, (Reported) Entered as Reported by: ALEJANDRA HERRON on 10/25/151602 Hydralazine Hcl (Hydralazine Hcl) 25 Mg Tablet, 50 MG PO TID for htn, #90 Prescribed by: VENTURA JULES on 11/03/18 1007 Last Action: Continued on 10/22/191948 by KATHRIN PETERSON Insulin Glargine,Hum.rec.anlog (Lantus Solostar) 100 Unit/1 Ml Insuln.pen, 45 UNIT SQ QHS, #15 Ref 3 (Reported) Entered as Reported by: ALEJANDRA HERRON on 10/25/151602 Last Action: Converted on 10/22/191948 by KATHRIN PETERSON Iron Polysaccharides Complex (Poly-Iron) 150 Mg Capsule, 150 MG PO BID for LOUISE MDD 1, #60 Prescribed by: VENTURA JULES on 05/21/18 1004 Last Action: Continued on 10/22/191948 by KATHRIN PETERSON Lactobacillus Rhamnosus Gg (Culturelle) 1 Each Capsule, 1 EACH PO BIDWMEALS, (Reported) Entered as Reported by: ALEJANDRA HERRON on 10/25/151602 Lisinopril (Lisinopril) 40 Mg Tablet, 40 DAILY, #90 (Reported) Entered as Reported by: KELI MARTINEZ on 10/25/15219 Last Action: Continued on 10/22/191948 by KATHRIN PETERSON Multivits,Ca,Minerals/Iron/Fa (Thera-M Tablet) 1 Each Tablet, 1 TAB PO DAILY for mvi MDD 1, #30 Prescribed by: VENTURA JULES on 05/21/18 1004 Last Action: Continued on 10/22/191948 by KATHRIN PETERSON Nystatin (Nyamyc) 15 Gm Powder, 15 GM TP DAILY, (Reported) Entered as Reported by: ALEJANDRA HERRON on 10/25/151602 Last Action: Continued on 10/22/191948 by KATHRIN PETERSON Pantoprazole Sodium (Pantoprazole Sodium ) 40 Mg Tablet.dr, DAILY, #90 (Reported) Entered as Reported by: KELI MARTINEZ on 10/25/15219 Last Action: Continued on 10/22/191948 by KATHRIN PETERSON Potassium Chloride (Klor-Con 10) 10 Meq Tablet.er, 30 MEQ PO DAILYWBKFT for low K for 7 Days, #21 Prescribed by: VENTURA JULES on 11/03/18 1007 Last Action: Continued on 10/22/191948 by KATHRIN PETERSON Sennosides/Docusate Sodium (Senna-S Tablet) 1 Each Tablet, 1 EACH PO BID, (Reported) Entered as Reported by: ALEJANDRA HERRON on 10/25/151602 Last Action: Continued on 10/22/191948 by KATHRIN PETERSON Scheduled PRN Albuterol Sulfate (Proair Hfa) 8.5 Gm Hfa.aer.ad, 2.5 MG NEB PRN Q4HRS PRN for SHORTNESS OF BREATH MDD 1, #60 Prescribed by: VENTURA JULES on 05/21/18 1004 Last Action: Continued on 10/22/191948 by KATHRIN PETERSON Diphenhydramine Hcl (Diphenhydramine Hcl) 50 Mg Capsule, 25 MG PO Q6HRS PRN for ALLERGIES, (Reported) Entered as Reported by: ALEJANDRA HERRON on 10/25/15 1603 Last Action: HELD on 10/22/191948 by KATHRIN PETERSON Guaifenesin/Dextromethorphan (Guaifenesin Dm Syrup) 5 Ml Syrup, 10 ML PO PRN Q6HRS PRN for COUGH, 1st CHOICE MDD 1, #30 Prescribed by: VENTURA JULES on 05/21/18 1004 Last Action: Continued on 10/22/191948 by KATHRIN PETERSON Oxycodone Hcl (Oxycodone Hcl Immed.release ) 5 Mg Tablet, 10 MG PO PRN Q4HRS PRN for SEVERE PAIN MDD 1, #20 Prescribed by: VENTURA JULES on 05/21/18 1004 Last Action: Continued on 10/22/191948 by KATHRIN PETERSON Discontinued Medications Insulin Aspart (Novolog Flexpen) 100 Unit/1 Ml Insuln.pen, 30 SQ TIDWMEALS, (Reported) Entered as Reported by: Darcy Gallardo RN on 05/09/16 2336 Last Action: Converted on 10/22/191948 by KATHRIN PETERSON Sulfamethoxazole/Trimethoprim (Bactrim Ds Tablet) 1 Each Tablet, 1 TAB PO BID, #14 Prescribed by: Yazmin Valdez APRN on 12/08/18 5103 Last Action: Continued on 10/22/191948 by KATHRIN PETERSON Justicifation of Admission Dx: Justifications for Admission: Justification of Admission Dx: Yes RAJ VANEGAS MD Oct 28, 2019 15:05
--- NOTE | 2019-10-28 16:09 | NUR ---
Wound Care: patient seen per wound care follow up regarding right great toe and left TMA wounds. Right great toe cleansed and pictured for discharge, wound is now closed, area redressed with contact layer and telfa for protection only. The left TMA wound is cleansed, assessed, measured, and pictured. Wound redressed with contact layer and foam dressing. There are no other wounds noted at this time. Patient shows mental status change from previous visit. Patient is trying to remove IV and yelling at team to "cut it off" even after IV was removed by RN. Spoke with RN and is aware of status change. Patient repositioned self and bed lowered and call light in reach. Patient scheduled to discharge to skilled facility today.
[2019-10-28 16:51] VITALS: BP 155/38
[2019-10-29] MEDS ORDERED: CARV25TA2 PO (23:38)
--- NOTE | 2019-10-30 09:46 | PDOC ---
GENERAL General: History and physical [id number] ALLERGIES Allergies: Allergies Coded Allergies Type Severity Reaction Last Updated Verified cefuroxime Allergy Intermediate 11/02/18 Yes piperacillin Adverse Reaction Intermediate RASH 11/02/18 Yes tazobactam Adverse Reaction Intermediate RASH 11/02/18 Yes zolpidem Adverse Reaction Intermediate HALLUCINATIONS 11/02/18 Yes glipizide Adverse Reaction Mild SENSITIVITY TO SUN 11/02/18 Yes Uncoded Allergies Type Severity Reaction Last Updated Verified DUST Allergy Mild SNEEZING 10/25/15 Justicifation of Admission Dx: Justifications for Admission: Justification of Admission Dx: Yes MOHAN LAWSON MD Oct 30, 2019 09:46
== END 2019-10-28 18:13 | DRG 592 ==
LOC: ER 11:32 → 6 SOUTH 13:40 → 2 NORTH 10-24 18:43
PROVIDERS: ADMIT Internal Medicine; ATTEND Internal Medicine
PROC: 0HBMXZZ Excision of Right Foot Skin, External Approach (ICD-10-PCS; principal; 2019-10-25)
DX: L89.893 Pressure ulcer of other site, stage 3 (principal); E43 Unspecified severe protein-calorie malnutrition; G92 Toxic encephalopathy; N17.0 Acute kidney failure with tubular necrosis; I13.0 Hypertensive heart and chronic kidney disease with heart failure and stage 1 through stage 4 chronic kidney disease, or unspecified chronic kidney disease; I50.32 Chronic diastolic (congestive) heart failure; Z68.42 Body mass index [BMI] 45.0-49.9, adult; E11.621 Type 2 diabetes mellitus with foot ulcer; E11.51 Type 2 diabetes mellitus with diabetic peripheral angiopathy without gangrene; D50.9 Iron deficiency anemia, unspecified; D72.829 Elevated white blood cell count, unspecified; E11.22 Type 2 diabetes mellitus with diabetic chronic kidney disease; E11.42 Type 2 diabetes mellitus with diabetic polyneuropathy; E66.01 Morbid (severe) obesity due to excess calories; E78.00 Pure hypercholesterolemia, unspecified; E78.5 Hyperlipidemia, unspecified; F32.9 Major depressive disorder, single episode, unspecified; I87.2 Venous insufficiency (chronic) (peripheral); K59.00 Constipation, unspecified; K80.20 Calculus of gallbladder without cholecystitis without obstruction; M20.41 Other hammer toe(s) (acquired), right foot; M81.0 Age-related osteoporosis without current pathological fracture; N18.3 Chronic kidney disease, stage 3 (moderate); N40.0 Benign prostatic hyperplasia without lower urinary tract symptoms; R32 Unspecified urinary incontinence; W55.03XA Scratched by cat, initial encounter; Z20.828 Contact with and (suspected) exposure to other viral communicable diseases; Z88.8 Allergy status to other drugs, medicaments and biological substances; Z72.820 Sleep deprivation; Z82.49 Family history of ischemic heart disease and other diseases of the circulatory system; Z83.3 Family history of diabetes mellitus; Z87.891 Personal history of nicotine dependence; Z88.0 Allergy status to penicillin; Z88.1 Allergy status to other antibiotic agents; M19.90 Unspecified osteoarthritis, unspecified site; Y93.89 Activity, other specified; Y92.89 Other specified places as the place of occurrence of the external cause; Y99.8 Other external cause status
CPT/HCPCS: 36415; 71045; 73630; 74177; 80048; 80053; 80061; 81001; 82306; 82728; 82962; 83036; 83540; 83550; 83605; 83690; 84145; 84484; 85025; 85045; 85610; 86140; 86611; 87040; 93005; 93306; 93925; 93971; 94640; 94760; 96365; 99285; J0295; J1200; J1650; J1815; J2060; J2185; J2270; J3010; J3490; J7040; J7060; Q9967; 97110-GO; 97530-GO; 97530-GP; 97535-GO; G0378; J7626; U0003-CS

== ENCOUNTER 2019-10-28 21:58 | Emergency (ER) | payer MEDICARE ==
[~2019-10-28] VITALS: Ht 182.9 cm; Wt 154.0 kg
[~2019-10-28 21:58] MED LIST changes: +DOXY100T PO
[2019-10-28 22:05] VITALS: BP_SYST 152
[2019-10-28 22:34] LABS: BASO # 0.1 x10^3/uL (0.0-0.2); BASO % 1 % (0-3); EOS # 0.2 x10^3/uL (0.0-0.7); EOS % 2 % (0-3); HEMATOCRIT 24.5 % (39.0-53.0); LYMPH # 1.1 x10^3/uL (1.0-4.8); LYMPH % 10 % (24-48); MEAN CORPUSCULAR HEMOGLOBIN 27 pg (25-35); MEAN CORPUSCULAR HGB CONC 32 g/dL (31-37); MEAN CORPUSCULAR VOLUME 84 fL (79-100); MONO % 9 % (0-9); NEUT # 8.9 x10^3/uL (1.8-7.7); NEUT % 78 % (31-73); PLATELET COUNT 352 x10^3/uL (140-400); RED BLOOD COUNT 2.92 x10^6/uL (4.30-5.70); RED CELL DISTRIBUTION WIDTH 15.8 % (11.5-14.5); WHITE BLOOD COUNT 11.3 x10^3/uL (4.0-11.0)
[2019-10-28 22:45] LABS: CALCIUM 9.7 mg/dL (8.5-10.1); CREATININE 2.1 mg/dL (0.7-1.3); GFR 31.2; POTASSIUM 4.3 mmol/L (3.5-5.1)
[2019-10-28 22:50] LABS: ALBUMIN/GLOBULIN RATIO 0.4 (1.0-1.7); TOTAL BILIRUBIN 0.2 mg/dL (0.2-1.0); TOTAL PROTEIN 7.2 g/dL (6.4-8.2)
--- NOTE | 2019-10-28 23:29 | RAD ---
INDICATION: Reason: confusion, hit head / Spl. Instructions: / History: COMPARISON: October 31, 2018 TECHNIQUE: Axial CT images obtained through the head without intravenous contrast. One or more of the following individualized dose reduction techniques were utilized for this examination: 1. Automated exposure control; 2. Adjustment of the mA and/or kV according to patient size; 3. Use of iterative reconstruction technique. FINDINGS: No intracranial hemorrhage. No midline shift. Basal cisterns patents. Ventricles and sulci are globally prominent. No acute osseous abnormality. Nasal septal deviation to the right. Calcific atherosclerosis. Scattered foci of low attenuation within the white matter. IMPRESSION: 1. No acute intracranial hemorrhage. 2. Scattered regions of low attenuation within the white matter. Non-specific in nature but frequently secondary to chronic small vessel ischemic disease. 3. Prominence of ventricles and sulci which is frequently secondary to age related volume loss. Electronically signed by: Juan Diego Daniels MD (10/28/2019 11:25 PM) [id number]
[2019-10-28 23:34] VITALS: BP_DIAS 134
[2019-10-29] MEDS ORDERED: IV NORMAL SALINE 500ML BAG 500 ML IV ONE
--- NOTE | 2019-10-29 00:27 | PHYS DOC ---
Past Medical History Past Medical History: Unknown Additional Past Medical Histor: morbid obesity, AMPUTATION HALF FOOT. Past Surgical History: No Surgical History Additional Past Surgical Histo: LEFT partial foot amputation, SHOULDER SURGERY Smoking Status: Unknown if ever smoked Alcohol Use: None Drug Use: None General Adult EDM: Chief Complaint: MECHANICAL FALL HPI: HPI: Patient is a 74-year-old male who presents to the emergency room after having a fall at a living facility. Patient is unable to provide any history. He states he hurts but is unable to identify where he is hurting him. He states that something fell on him and shattered. He does not remember falling. She does not know that he lives in a living facility. Is unclear what his baseline is. Review of Systems: Review of Systems: Unable to obtain Heart Score: Risk Factors: Risk Factors: DM, Current or recent (<one month) smoker, HTN, HLP, family history of CAD, obesity. Risk Scores: Score 0 - 3: 2.5% MACE over next 6 weeks - Discharge Home Score 4 - 6: 20.3% MACE over next 6 weeks - Admit for Clinical Observation Score 7 - 10: 72.7% MACE over next 6 weeks - Early Invasive Strategies Current Medications: Current Medications Medications (Trade) Dose Ordered Sig/Beatrice Start Time Stop Time Status Last Admin Dose Admin Lorazepam (Ativan Inj) 1 mg 1X ONCE 10/29/19 00:15 10/29/19 00:16 DC Sodium Chloride 500 ml @ 500 mls/hr 1X ONCE 10/29/19 00:00 10/29/19 00:59 Allergies: Allergies: Allergies Coded Allergies Type Severity Reaction Last Updated Verified cefuroxime Allergy Intermediate 11/02/18 Yes piperacillin Adverse Reaction Intermediate RASH 11/02/18 Yes tazobactam Adverse Reaction Intermediate RASH 11/02/18 Yes zolpidem Adverse Reaction Intermediate HALLUCINATIONS 11/02/18 Yes glipizide Adverse Reaction Mild SENSITIVITY TO SUN 11/02/18 Yes Uncoded Allergies Type Severity Reaction Last Updated Verified DUST Allergy Mild SNEEZING 10/25/15 Physical Exam: PE: General: Awake, alert, mild distress. Well Nourished, well hydrated. Cooperative HEENT: Atraumatic, EOMI, PERRL, airway patent, moist oral mucosa Neck: Supple, trachea midline Respiratory: CTA bilaterally, normal effort, no wheezing/crackles CV: RRR, no murmur, cap refill <2 GI: Soft, nondistended, nontender, no masses MSK: No obvious deformities Skin: Warm, dry, intact Neuro: A&O x2, speech NL, sensory and motor grossly intact, no focal deficits Psych: Anxious, confused, not suicidal or homicidal Current Patient Data: Labs: Laboratory Tests Test 10/28/19 22:14 White Blood Count 11.3 x10^3/uL (4.0-11.0) H Red Blood Count 2.92 x10^6/uL (4.30-5.70) L Hemoglobin 8.0 g/dL (13.0-17.5) L Hematocrit 24.5 % (39.0-53.0) L Mean Corpuscular Volume 84 fL (79-100) Mean Corpuscular Hemoglobin 27 pg (25-35) Mean Corpuscular Hemoglobin Concent 32 g/dL (31-37) Red Cell Distribution Width 15.8 % (11.5-14.5) H Platelet Count 352 x10^3/uL (140-400) Neutrophils (%) (Auto) 78 % (31-73) H Lymphocytes (%) (Auto) 10 % (24-48) L Monocytes (%) (Auto) 9 % (0-9) Eosinophils (%) (Auto) 2 % (0-3) Basophils (%) (Auto) 1 % (0-3) Neutrophils # (Auto) 8.9 x10^3/uL (1.8-7.7) H Lymphocytes # (Auto) 1.1 x10^3/uL (1.0-4.8) Monocytes # (Auto) 1.0 x10^3/uL (0.0-1.1) Eosinophils # (Auto) 0.2 x10^3/uL (0.0-0.7) Basophils # (Auto) 0.1 x10^3/uL (0.0-0.2) Sodium Level 140 mmol/L (136-145) Potassium Level 4.3 mmol/L (3.5-5.1) Chloride Level 104 mmol/L (98-107) Carbon Dioxide Level 27 mmol/L (21-32) Anion Gap 9 (6-14) Blood Urea Nitrogen 63 mg/dL (8-26) H Creatinine 2.1 mg/dL (0.7-1.3) H Estimated GFR (Cockcroft-Gault) 31.2 BUN/Creatinine Ratio 30 (6-20) H Glucose Level 278 mg/dL (70-99) H Calcium Level 9.7 mg/dL (8.5-10.1) Total Bilirubin 0.2 mg/dL (0.2-1.0) Aspartate Amino Transferase (AST) 41 U/L (15-37) H Alanine Aminotransferase (ALT) 40 U/L (16-63) Alkaline Phosphatase 96 U/L (46-116) Total Protein 7.2 g/dL (6.4-8.2) Albumin 2.0 g/dL (3.4-5.0) L Albumin/Globulin Ratio 0.4 (1.0-1.7) L Laboratory Tests 10/28/19 22:14 Laboratory Tests 10/28/19 22:14 Vital Signs: Vital Signs Date Time Temp Pulse Resp B/P (MAP) Pulse Ox O2 Delivery O2 Flow Rate FiO2 10/28/19 22:05 97.9 91 16 152/65 (94) 98 Room Air 97.9 EKG: EKG: [] Radiology/Procedures: Radiology/Procedures: [] Course & Med Decision Making: Course & Med Decision Making Pertinent Labs and Imaging studies reviewed. (See chart for details) Patient is a 74-year-old male who presents to the emergency room after a fall out of bed. Patient is confused upon arrival. It is unclear if he has any pain. There is no obvious signs of trauma on exam. CT of his head was done and was normal. Labs were ordered. Patient appears to be dehydrated and was given fluids. UA is negative for significant UTI. Patient calmed while in the Emergency Room. Patient has a history of intermittent confusion. Patient has mild elevated of creatinine and BUN suggestive of dehydration. Patient is stable at this time to return to the facility. Patient's test results and vitals while in the ED were fully reviewed and discussed with the patient. Patient is stable and at this time does not need admission to the hospital. We have discussed strict return precautions and the importance of following up with their Primary Care Physician. Patient stated understanding and was given an opportunity to ask any questions. Patient is in agreement with plan. Mert Disclaimer: Mert Disclaimer: This electronic medical record was generated, in whole or in part, using a voice recognition dictation system. Departure Departure Impression: Primary Impression: Fall Additional Impressions: Altered mental status Dehydration Disposition: 03 TRANSFER SNF Condition: IMPROVED Referrals: Rajnedra ACOSTA MD (PCP) Patient Instructions: Dehydration, Adult, Fall Prevention in Hospitals Justicifation of Admission Dx: Justifications for Admission: Justification of Admission Dx: Yes EMMANUEL MILLER MD Oct 29, 2019 00:27
[2019-10-29 03:32] LABS: BILIRUBIN,URINE NEGATIVE (NEG); CLARITY,URINE CLEAR; COLOR,URINE YELLOW; NITRITE,URINE NEGATIVE (NEG); PROTEIN,URINE NEGATIVE (NEG-TRACE); UROBILINOGEN,URINE 0.2 mg/dL (0.2 mg/dL)
[2019-10-29 03:39] LABS: BACTERIA,URINE 0 /HPF (0-FEW); RBC,URINE OCC /HPF (0-2); WBC,URINE OCC /HPF (0-4)
[2019-10-29 03:40] LABS: HYALINE CASTS, URINE FEW /HPF; SQUAMOUS EPITHELIAL CELL,UR FEW /LPF
[2019-10-29] MEDS ORDERED: CARV25TA2 PO (23:38)
== END 2019-10-29 06:22 | disposition home or self-care (01) ==
LOC: ER 21:58
DX: R41.82 Altered mental status, unspecified (principal); E86.0 Dehydration; E66.01 Morbid (severe) obesity due to excess calories; Z68.42 Body mass index [BMI] 45.0-49.9, adult; Z98.890 Other specified postprocedural states; Z88.1 Allergy status to other antibiotic agents; Z88.5 Allergy status to narcotic agent; Z88.6 Allergy status to analgesic agent; Z88.8 Allergy status to other drugs, medicaments and biological substances
CPT/HCPCS: 36415; 70450; 80053; 81001; 85025; 96361; 96374; 96376; 99284; J2060; J7040; P9612

== ENCOUNTER 2019-10-29 16:47 | Inpatient (IN) | payer MEDICARE ==
[~2019-10-29] VITALS: Ht 177.8 cm; Wt 135.0 kg
--- NOTE | 2019-10-29 17:17 | PHYS DOC ---
Past Medical History Past Medical History: Unknown Additional Past Medical Histor: morbid obesity, AMPUTATION HALF FOOT. (KALEE LAMAR MD) Past Surgical History: No Surgical History Additional Past Surgical Histo: LEFT partial foot amputation, SHOULDER SURGERY (KALEE LAMAR MD) Smoking Status: Unknown if ever smoked Alcohol Use: None Drug Use: None (KALEE LAMAR MD) General Adult EDM: Chief Complaint: MECHANICAL FALL HPI: HPI: Patient is a 74 year old male presents for evaluation quadruple falls. Patient fell off a low diagnostic after valuation. Patient stated he had back pain to the nurse which is chronic. Patient has bruise on his head his right knee and had pain with his left wrist with nursing assessment. Patient has confusion and his history physical review of systems is limited due to altered mental status (KALEE LAMAR MD) Review of Systems: Review of Systems: Constitutional: Denies fever or chills. [] Eyes: Denies change in visual acuity. [] HENT: Denies nasal congestion or sore throat. [] Respiratory: Denies cough or shortness of breath. [] Cardiovascular: Denies chest pain or edema. [] GI: Denies abdominal pain, nausea, vomiting, bloody stools or diarrhea. [] : Denies dysuria. [] Musculoskeletal: Complains of back pain, right knee and left wrist pain Integument: Denies rash. [] Neurologic: Denies headache, focal weakness or sensory changes. [] As altered mental status Endocrine: Denies polyuria or polydipsia. [] Lymphatic: Denies swollen glands. [] Psychiatric: Denies depression or anxiety. [] (KALEE LAMAR MD) Heart Score: Risk Factors: Risk Factors: DM, Current or recent (<one month) smoker, HTN, HLP, family history of CAD, obesity. Risk Scores: Score 0 - 3: 2.5% MACE over next 6 weeks - Discharge Home Score 4 - 6: 20.3% MACE over next 6 weeks - Admit for Clinical Observation Score 7 - 10: 72.7% MACE over next 6 weeks - Early Invasive Strategies (KALEE LAMAR MD) Allergies: Allergies: Allergies Coded Allergies Type Severity Reaction Last Updated Verified cefuroxime Allergy Intermediate 11/02/18 Yes piperacillin Adverse Reaction Intermediate RASH 11/02/18 Yes tazobactam Adverse Reaction Intermediate RASH 11/02/18 Yes zolpidem Adverse Reaction Intermediate HALLUCINATIONS 11/02/18 Yes glipizide Adverse Reaction Mild SENSITIVITY TO SUN 11/02/18 Yes Uncoded Allergies Type Severity Reaction Last Updated Verified DUST Allergy Mild SNEEZING 10/25/15 (KALEE LAMAR MD) Physical Exam: PE: Constitutional: Mildly disheveled, well developed mild distress, drowsy HENT: Ecchymosis to the right forehead, external ears normal, no trismus Eyes: PERRLA, EOMI, conjunctiva normal, no discharge. [] Neck: Normal range of motion, no tenderness, supple, no stridor. [] Cardiovascular: Regular rate, peripheral pulses intact Lungs & Thorax: Diminished breath sounds, no respiratory distress Abdomen: Bowel sounds normal, soft, no tenderness, no masses, no pulsatile masses. [] Skin: Mild pallor, ecchymosis to right knee Back: No tenderness or step-offs on my exam Extremities: Tenderness to left wrist ecchymosis and tenderness to the right knee neurovascular intact distally left foot partial amputation with dressing in place Neurologic: Confused, slow to respond moves all extremities Psychologic: Affect normal, judgement normal, mood normal. [] (KALEE LAMAR MD) Current Patient Data: Labs: Laboratory Tests Test 10/29/19 17:07 White Blood Count 11.4 x10^3/uL Red Blood Count 2.92 x10^6/uL Hemoglobin 8.0 g/dL Hematocrit 24.4 % Mean Corpuscular Volume 84 fL Mean Corpuscular Hemoglobin 28 pg Mean Corpuscular Hemoglobin Concent 33 g/dL Red Cell Distribution Width 15.6 % Platelet Count 345 x10^3/uL Neutrophils (%) (Auto) 83 % Lymphocytes (%) (Auto) 8 % Monocytes (%) (Auto) 8 % Eosinophils (%) (Auto) 1 % Basophils (%) (Auto) 1 % Neutrophils # (Auto) 9.5 x10^3/uL Lymphocytes # (Auto) 0.9 x10^3/uL Monocytes # (Auto) 0.9 x10^3/uL Eosinophils # (Auto) 0.1 x10^3/uL Basophils # (Auto) 0.1 x10^3/uL Urine Collection Type Unknown Urine Color Yellow Urine Clarity Clear Urine pH 5.0 Urine Specific Johnston 1.010 Urine Protein Negative mg/dL Urine Glucose (UA) Negative mg/dL Urine Ketones (Stick) Negative mg/dL Urine Blood Negative Urine Nitrite Negative Urine Bilirubin Negative Urine Urobilinogen Dipstick 0.2 mg/dL Urine Leukocyte Esterase Negative Urine RBC Rare /HPF Urine WBC 0 /HPF Urine Squamous Epithelial Cells Few /LPF Urine Bacteria 0 /HPF Urine Hyaline Casts Few /HPF Urine Mucus Slight /LPF Vital Signs: Vital Signs Date Time Temp Pulse Resp B/P (MAP) Pulse Ox O2 Delivery O2 Flow Rate FiO2 10/29/19 16:50 98.2 16 111/73 (86) 99 Room Air 98.2 (KALEE LAMAR MD) EKG: EKG: [] (KALEE LAMAR MD) Radiology/Procedures: Radiology/Procedures: [] (KALEE LAMAR MD) Course & Med Decision Making: Course & Med Decision Making Pertinent Labs and Imaging studies reviewed. (See chart for details) [] 74-year-old male with multiple mechanical falls. Extensive work-up has been ordered. Care will be signed over to Dr. Rosario to follow-up on regular labs, EKG and imaging. Disposition per Dr. Rosario. (KALEE LAMAR MD) Course & Med Decision Making Assumed care of patient at checkout. I discussed the patient with Dr. Alvarez the on-call hospitalist. He discharged this patient to a [facility] facility earlier this week. He evaluated the patient here in the emergency room. He also reviewed his labs. He felt that the patient was unchanged from discharge. He called and talked to the nursing facility and told them that he would be sending him back to the facility. Shortly after the director of the facility called the emergency room. The director stated that they were not going to accept this patient back to their facility. They state that they are unable to care for him at their facility. I did clarify with him that they were refusing to accept this patient that had been admitted to them and the director states that they are indeed refusing the patient. He states that due to his repetitive falls they are unable to care for him. Patient has not had any falls during his stay here in the emergency room. He does have some confusion but has not been combative. He is easily redirectable. He does occasionally yell out. At this time patient will be admitted back to the hospital for case management purposes. (EMMANUEL ROSARIO MD) Dragon Disclaimer: Dragon Disclaimer: This electronic medical record was generated, in whole or in part, using a voice recognition dictation system. (KALEE LAMAR MD) Departure Departure Impression: Primary Impression: Fall Additional Impression: Head injury Disposition: ADMITTED INPATIENT Referrals: Rajendra ACOSTA MD (PCP) Justicifation of Admission Dx: Justifications for Admission: Justification of Admission Dx: N/A (KALEE LAMAR MD) Justification of Admission Dx: Yes (EMMANUEL ROSARIO MD) KALEE LAMAR MD Oct 29, 2019 17:17 EMMANUEL ROSARIO MD Oct 30, 2019 02:17
[2019-10-29 17:25] LABS: BASO # 0.1 x10^3/uL (0.0-0.2); BASO % 1 % (0-3); EOS # 0.1 x10^3/uL (0.0-0.7); EOS % 1 % (0-3); HEMATOCRIT 24.4 % (39.0-53.0); LYMPH # 0.9 x10^3/uL (1.0-4.8); LYMPH % 8 % (24-48); MEAN CORPUSCULAR HEMOGLOBIN 28 pg (25-35); MEAN CORPUSCULAR HGB CONC 33 g/dL (31-37); MEAN CORPUSCULAR VOLUME 84 fL (79-100); MONO # 0.9 x10^3/uL (0.0-1.1); MONO % 8 % (0-9); NEUT # 9.5 x10^3/uL (1.8-7.7); NEUT % 83 % (31-73); PLATELET COUNT 345 x10^3/uL (140-400); RED BLOOD COUNT 2.92 x10^6/uL (4.30-5.70); RED CELL DISTRIBUTION WIDTH 15.6 % (11.5-14.5); WHITE BLOOD COUNT 11.4 x10^3/uL (4.0-11.0)
[2019-10-29 17:26] LABS: BILIRUBIN,URINE NEGATIVE (NEG); CLARITY,URINE CLEAR; COLOR,URINE YELLOW; NITRITE,URINE NEGATIVE (NEG); PROTEIN,URINE NEGATIVE (NEG-TRACE); UROBILINOGEN,URINE 0.2 mg/dL (0.2 mg/dL)
[2019-10-29 17:36] LABS: SQUAMOUS EPITHELIAL CELL,UR FEW /LPF
[2019-10-29 17:37] LABS: HYALINE CASTS, URINE FEW /HPF
[2019-10-29 17:38] LABS: BACTERIA,URINE 0 /HPF (0-FEW); RBC,URINE RARE /HPF (0-2); WBC,URINE 0 /HPF (0-4)
--- NOTE | 2019-10-29 17:56 | RAD ---
STUDY: CT head and cervical spine without contrast INDICATION: Fall. COMPARISON: CT head 10/28/2019. TECHNIQUE: Axial CT imaging through the head and cervical spine without the use of intravenous contrast. Sagittal and coronal reformats were obtained. One or more of the following individualized dose reduction techniques were utilized for this examination: 1. Automated exposure control 2. Adjustment of the mA and/or kV according to patient size 3. Use of iterative reconstruction technique. FINDINGS: CT head: No acute intracranial hemorrhage. No mass effect, midline shift or hydrocephalus. Chronic/senescent findings are unchanged as detailed on the recent comparison. Development of a right paramidline frontal scalp contusion. No depressed calvarial fracture. CT cervical spine: Significantly degraded evaluation below C5 due to beam attenuation. No acute fracture of the adequately assessed vertebral bodies and posterior elements. No traumatic malalignment. Multifactorial degenerative changes superimposed upon findings of diffuse idiopathic skeletal hyperostosis. The central canal is stenotic throughout and is at least moderate and likely severe at multiple levels though not well characterized. Varying degrees of neural foraminal stenosis as well. Dense carotid calcific atherosclerosis. IMPRESSION: CT head: 1. No acute intracranial abnormality by CT. 2. Right paramidline frontal scalp hematoma without an associated depressed calvarial fracture. CT cervical spine: 1. Significantly limited evaluation below C5 due to patient body habitus with resultant beam attenuation. 2. No acute fracture of the adequately evaluated spine. 3. Advanced multifactorial degenerative changes with at least moderate and likely severe central canal stenosis at several levels. Electronically signed by: APOLLO ISAAC MD (10/29/2019 5:53 PM) [id number]
--- NOTE | 2019-10-29 18:16 | RAD ---
EXAM: PORTABLE CHEST 1V, WRIST 3V LEFT, PELVIS, KNEE RIGHT 3V INDICATION: Reason: fall / Spl. Instructions: / History: . TECHNIQUE: Single view COMPARISON: None FINDINGS: The heart size is normal. The great vessels appear unremarkable. There is no hilar or mediastinal mass. The lungs are hypoventilatory but otherwise clear. There is no pleural effusion or pneumothorax. There are no significant osseous abnormalities. IMPRESSION: No active cardiopulmonary disease. PROCEDURE: PORTABLE CHEST 1V, WRIST 3V LEFT, PELVIS, KNEE RIGHT 3V CLINICAL INDICATION / HISTORY: Reason: fall / Spl. Instructions: / History: . TECHNIQUE: Left wrist 3 views. AP, lateral, oblique COMPARISON: None FINDINGS: The radiocarpal and intracarpal relationships are maintained. There is no fracture or dislocation seen. The bones are very well mineralized, especially for stated patient age but there are lucencies in the carpal bones suggesting possible erosions. There is mild diffuse soft tissue swelling around the left wrist. IMPRESSION: No fracture or malalignment shown by x-ray. Soft tissue swelling could reflect a wrist sprain. Multiple lucencies in the carpal bones could reflect osseous erosions in the setting of an inflammatory arthropathy. Correlate with clinical history and consider follow-up. PROCEDURE: PORTABLE CHEST 1V, WRIST 3V LEFT, PELVIS, KNEE RIGHT 3V CLINICAL INDICATION / HISTORY: Reason: fall / Spl. Instructions: / History: . TECHNIQUE:Single AP view of the pelvis COMPARISON: Abdomen pelvis CT 10/22/2019 FINDINGS: No fracture or malalignment is apparent. No hip dislocation. There is a sharply marginated lucency in the left bone involving the superior acetabulum and this lucency appears to contain multiple ovoid densities. There are enthesophytes on the left iliac crest as well.. IMPRESSION: No acute traumatic findings in the pelvis. Findings in the left acetabulum in correlation with prior CT likely reflect combination of subchondral cystic change of the left acetabulum and bowel gas artifact with intraluminal fecal debris. Correlate clinically and consider additional imaging if clinically warranted. Right knee 3 views INDICATION: Fall COMPARISON: Pelvis x-ray same day FINDINGS: AP, lateral, and oblique views of the right knee show a large knee joint effusion and marked tricompartmental degenerative changes most conspicuous in the medial compartment but involving both patellofemoral and lateral compartments. No acute fracture is however identified. There is mild varus angulation to the knee due to medial joint space narrowing. Otherwise alignment is unremarkable. Soft tissues show also arterial calcifications. IMPRESSION: No acute traumatic findings in the right knee other than a large joint effusion with no associated obvious fracture noted. There are advanced tricompartmental degenerative changes in the right knee with mild varus angulation. Electronically signed by: Salty Aldana MD (10/29/2019 6:13 PM) [facility]
[2019-10-29 18:43] LABS: PROTHROMBIN TIME PATIENT 14.6 SEC (11.7-14.0)
[2019-10-29 18:47] LABS: CALCIUM 9.5 mg/dL (8.5-10.1); CREATININE 1.8 mg/dL (0.7-1.3); GFR 37.3; POTASSIUM 4.1 mmol/L (3.5-5.1)
[2019-10-29 18:54] LABS: ALBUMIN 2.1 g/dL (3.4-5.0); ALBUMIN/GLOBULIN RATIO 0.4 (1.0-1.7); TOTAL BILIRUBIN 0.3 mg/dL (0.2-1.0); TOTAL PROTEIN 7.2 g/dL (6.4-8.2)
[2019-10-29] MEDS ORDERED: IV NORMAL SALINE 1000ML BAG 1,000 ML IV ONE (20:00)
[2019-10-29 22:55] VITALS: BP 141/47
--- NOTE | 2019-10-29 23:07 | NUR ---
This RN received report from DIEGO Kaur in Emergency room. Pt. arrived on unit at 2245 by bed from ED. Pt. is A&Ox2, on room air and complains of a headache at this time. Call light is within reach with bed in lowest setting and alarm on. Will continue to monitor.
[2019-10-29] MEDS ORDERED: CARV25TA2 PO (23:38)
[2019-10-29] MEDS ORDERED: ALBUTEROL SULFATE 2.5 MG/3 ML NEBU. NEB PRN (23:45)
[2019-10-29] MEDS ORDERED: guaiFENesin DM 200MG/20MG 10 ML SYRUP PO PRN (23:45)
[2019-10-30] MEDS ORDERED: INSULIN GLARGINE SYRINGE. SQ ONE (01:00)
[2019-10-30] MEDS: oxyCODONE IR 5 MG TABLET PO PRN ×2 (01:57→10:24)
[2019-10-30 02:30] VITALS: BP 95/41
[2019-10-30] MEDS ORDERED: OLANZapine IM 10 MG VIAL. IM ONE (02:30)
[2019-10-30 07:00] VITALS: BP 138/60
[2019-10-30] MEDS: BUDESONIDE 0.5 MG/2 ML NEBU. NEB SCH ×2 (07:32→20:00)
[2019-10-30] MEDS ORDERED: GLUCOSAMINE HCL PO SCH (09:00)
[2019-10-30] MEDS ORDERED: CHONDR SU A NA PO SCH (09:00)
[2019-10-30] MEDS ORDERED: [UNRECOGNIZED DRUG - OTHER] PO SCH (09:00)
[2019-10-30] MEDS: CHOLECALCIFEROL (VITAMIN D3) 1,000 UNIT TABLET PO SCH (10:24)
[2019-10-30] MEDS: ASPIRIN 325 MG TABLET PO SCH (10:25)
[2019-10-30] MEDS: MULTIVITAMIN with MINERAL TABLET. PO SCH (10:25)
[2019-10-30] MEDS: POTASSIUM CHLORIDE 10 MEQ TABLET.ER. PO SCH (10:25)
--- NOTE | 2019-10-30 10:25 | HP ---
ADMIT DATE: HISTORY OF PRESENT ILLNESS: This patient is a 74-year-old man who is a continuity outpatient of Dr. Tito Rankin, who uses the Team [facility] hospitalist here at [facility], I am rounding for them this weekend. I met this patient years ago as I have been caring for his for over 15 years. Both of them have had severe clinical decline in the last several years. I have not seen this patient in quite some time. Unfortunately, he has been living alone and unable to care for himself, was admitted last week with altered mental status and fever of unclear etiology. The Nephrology team was involved for creatinine elevated to 1.4. His baseline is unknown. Infectious Diseases was also involved on that admission to help workup the fever. He was COVID-19 negative and all microbiology returned unremarkable. There was a concern for Bartonella as he does have significant cat scratches on his arms. Those markers returned negative. The patient was discharged yesterday afternoon to rehab and they returned him given his continued confusion and inability to work with them. He did not have a fall, but they were concerned given his instability. I am seeing the patient this morning now about 12 hours after admission and he is resting in bed, slightly confused, though he does remember my name and recognizes me even with the mask on. He is a poor historian given his izsng-br-zttmvim metabolic encephalopathy. His only complaint this morning is that he needs to go to the bathroom. He denies any pain anywhere. He is unclear why he has been unable to get around at home. 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 He does have a fitted shoe, but he is unable to locate it. His vascular studies on his admission last week were notable for open flow in the left leg and moderate to high-grade right SFA disease. The plan was to have him follow up with Vascular as an outpatient; it does not appear that they were consulted during that admission. The patient is also significantly anemic with an unclear baseline. Gastroenterology did assess him during that last admission and did not find him to be a good candidate for further evaluation. The patient was also found to have a small T12 lytic lesion that has not had any further assessment. The patient denies any other new specific constitutional symptoms and all other systems reviewed and negative. PAST MEDICAL HISTORY: 1. Morbid obesity with, as he tells me, a 100-pound weight loss in the last year or so. He says he has just quit eating junk food. 2. Type 2 diabetes that has been well controlled, A1c on that last admission was 7.4%. 3. Peripheral neuropathy. 4. Peripheral vascular disease, in fact I do locate a consultation from last week from the vascular team and they state that at this point, no further vascular intervention is needed given that he does have adequate blood flow to both feet. 5. Significant decubitus ulcers in various locations. 6. Anemia of unclear etiology, still undergoing workup. 7. Acute stage 3 renal failure of unclear etiology on this admission, perhaps from prerenal azotemia, renal cyst was found on that last admission and needs followup in 6 months. 8. Hypertension. 9. Multiple wounds throughout in various stages of healing. 10. Wxhrz-wu-cxcoltd metabolic encephalopathy of as yet unclear etiology. MEDICATIONS: Please see the medication reconciliation form. SOCIAL HISTORY: The patient is . His is very frail and debilitated, in fact on hospice living at their son's home. The patient quit smoking some years ago. He does not take alcohol or illicit drugs. He is currently living alone. He does not name a decision maker; however, there are 3 sons who are quite involved; I have met at least 2 of them in the care of this patient's , Luna. The patient is listed as a full code. FAMILY HISTORY: Reviewed in full on review of the medical record and noncontributory to the present illness. PHYSICAL EXAMINATION: VITAL SIGNS: Reviewed since admission and are notable for a T-max of 99.5, heart rate is in the 70s-90s and regular. He is breathing comfortably and saturating normally on room air. Blood pressure has ranged in the 130s-150s as high as 170/70 this morning. He is agitated currently. GENERAL: In general, the patient is awake and alert. On my assessment, he was pleasant and appropriately interactive. He is crying out some now in pain, though denied any pain while I was there with him. He is oriented to person only. HEENT: Unremarkable for acute abnormality. NECK: Soft and supple. No adenopathy or thyromegaly noted. CHEST: Clear to auscultation anteriorly. HEART: S1, S2 normal. Regular rate and rhythm. No murmurs or gallops are noted. ABDOMEN: Obese, soft, nontender, nondistended. No masses or organomegaly noted. EXTREMITIES: Notable for scratches over his bilateral upper extremities without evidence of acute cellulitis in various stages of healing. He does have evidence of old, completely healed ulcers on his bilateral lower extremities. Pulses are palpable. He is status post left transmetatarsal amputation that wound is dressed. LABORATORY DATA AND OTHER STUDIES: Admission white count is 11.4, which is about what it was last week. Hemoglobin is stable at 8.0, which is what it was last week. Platelet count is 345. Chemistry panel is notable for creatinine of 1.8. Electrolytes are unremarkable. Liver function tests are normal. Serum lipase is 50. Urinalysis is clear. COVID-19 is negative on 10/21. ASSESSMENT AND PLAN: A 74-year-old man with marked debility and extensive underlying chronic multi-morbidity readmitted within 12 hours of discharge from the rehabilitation given their inability to care for him. I certainly agree that we need to stabilize his metabolic encephalopathy and better pinpoint the underlying etiology prior to discharge back to rehabilitation. We will consult [employer], Physical Therapy, Occupational Therapy and their assistance is appreciated. None of his current medications appear to be contributing, though he has been on oxycodone for many years. He has typically taken Benadryl at home, though he has not had a dose of that. He has been restarted on doxycycline, and I agree with that plan empirically treating infection as underlying cause of his altered mental status. We will proceed with CT brain and CT thoracic and lumbar spine to further explore the T12 lytic lesion. He may need a full skeletal survey depending on those results. We will reconsult Nephrology for their assistance in managing his acute on chronic stage 3 renal failure. His anemia is quite significant. We will transfuse to keep his hemoglobin up over 7. We will reassess fecal occult blood. I have iron and vitamin B12 levels pending for the morning. We will also add an SPEP and an UPEP to assess for multiple myeloma as the underlying cause of his decline. He certainly meets criteria for inpatient status and we anticipate a length of stay of at least 3-4 midnights while we work this through. He will certainly need a rehabilitation stay following this admission and a permanent move to penitentiary. Nutrition has also been consulted for help with his severe protein-calorie malnutrition. MOHAN LAWSON MD DR: JOHN/domitila JOB#: [id number] / [id number] KEVIN
[2019-10-30] MEDS: LISINOPRIL 20 MG TABLET PO SCH (10:26)
[2019-10-30] MEDS: LACTOBACILLUS RHAMNOSUS GG 1 CAPSULE. PO SCH ×2 (10:26→17:33)
[2019-10-30] MEDS: SENNOSIDES/DOCUSATE 8.6/50MG TABLET. PO SCH ×2 (10:26→21:31)
[2019-10-30] MEDS: IRON POLYSACCHARIDE COMPLEX 150 MG CAPSULE PO SCH ×2 (10:27→17:34)
[2019-10-30] MEDS: FUROSEMIDE 20 MG TABLET PO SCH ×2 (10:27→14:13)
[2019-10-30] MEDS: DOXYCYCLINE HYCLATE 100 MG TABLET PO SCH ×2 (10:28→21:32)
[2019-10-30] MEDS: PANTOPRAZOLE 40 MG TABLET.DR. PO SCH (10:28)
[2019-10-30] MEDS: hydrALAZINE 25 MG TABLET PO SCH ×3 (10:29→21:32)
[2019-10-30] MEDS ORDERED: DEXTROSE 50% 25 GM / 50ML DISP.SYRIN. IV PRN (10:30)
[2019-10-30] MEDS: FLUTICASONE 50MCG/NASAL SPRAY 16GM BOTTLE. NS SCH (10:30)
[2019-10-30] MEDS: NYSTATIN TOPICAL POWDER 15GM BOTTLE. TP SCH (10:30)
[2019-10-30] MEDS: amLODIPine BESYLATE 5 MG TABLET PO SCH (10:30)
[2019-10-30 11:00] VITALS: BP 130/48
[2019-10-30] MEDS: INSULIN LISPRO 300 UNITS/3 ML VIAL. SQ SCH ×2 (14:30→17:38)
[2019-10-30 15:00] VITALS: BP 124/63
--- NOTE | 2019-10-30 15:57 | EKG ---
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
[2019-10-30] MEDS ORDERED: HALOPERIDOL LACTATE 5 MG/ML VIAL. IVP PRN (17:00)
[2019-10-30] MEDS ORDERED: INSULIN GLARGINE HUM REC ANLOG 45 UNIT SQ SCH (21:00)
[2019-10-30] MEDS ORDERED: QUEtiapine 25 MG TABLET. PO SCH (21:00)
[2019-10-30] MEDS: ATORVASTATIN CALCIUM 20 MG TABLET PO SCH (21:32)
[2019-10-30] MEDS: INSULIN GLARGINE SYRINGE. SQ SCH (21:39)
[2019-10-30 23:00] VITALS: BP 119/52
[2019-10-31] MEDS ORDERED: OLANZapine IM 10 MG VIAL. IM ONE (00:15)
[2019-10-31 03:08] VITALS: BP 129/58
[2019-10-31 05:58] LABS: BASO % 0 % (0-3); EOS # 0.4 x10^3/uL (0.0-0.7); EOS % 3 % (0-3); HEMATOCRIT 24.6 % (39.0-53.0); LYMPH # 1.7 x10^3/uL (1.0-4.8); LYMPH % 16 % (24-48); MEAN CORPUSCULAR HEMOGLOBIN 27 pg (25-35); MEAN CORPUSCULAR HGB CONC 33 g/dL (31-37); MEAN CORPUSCULAR VOLUME 84 fL (79-100); MONO # 1.2 x10^3/uL (0.0-1.1); MONO % 11 % (0-9); NEUT # 7.8 x10^3/uL (1.8-7.7); NEUT % 70 % (31-73); PLATELET COUNT 390 x10^3/uL (140-400); RED BLOOD COUNT 2.92 x10^6/uL (4.30-5.70); RED CELL DISTRIBUTION WIDTH 15.7 % (11.5-14.5); WHITE BLOOD COUNT 11.1 x10^3/uL (4.0-11.0)
[2019-10-31 06:16] LABS: ALBUMIN/GLOBULIN RATIO 0.4 (1.0-1.7); C-REACTIVE PROTEIN 135.3 mg/L (0-3.3); CALCIUM 8.9 mg/dL (8.5-10.1); CREATININE 2.2 mg/dL (0.7-1.3); GFR 29.6; POTASSIUM 3.5 mmol/L (3.5-5.1); TOTAL BILIRUBIN 0.3 mg/dL (0.2-1.0); TOTAL PROTEIN 7.3 g/dL (6.4-8.2)
[2019-10-31 07:00] VITALS: BP 138/61
[2019-10-31] MEDS: BUDESONIDE 0.5 MG/2 ML NEBU. NEB SCH ×2 (07:30→21:12)
[2019-10-31] MEDS: diphenhydrAMINE HCL 25 MG CAPSULE PO PRN ×3 (07:36→21:33)
[2019-10-31] MEDS: POTASSIUM CHLORIDE 10 MEQ TABLET.ER. PO SCH (07:36)
[2019-10-31] MEDS: CHOLECALCIFEROL (VITAMIN D3) 1,000 UNIT TABLET PO SCH (07:36)
[2019-10-31] MEDS: IRON POLYSACCHARIDE COMPLEX 150 MG CAPSULE PO SCH ×2 (07:36→11:48)
[2019-10-31] MEDS: PANTOPRAZOLE 40 MG TABLET.DR. PO SCH (07:36)
[2019-10-31] MEDS: SENNOSIDES/DOCUSATE 8.6/50MG TABLET. PO SCH ×2 (07:37→21:18)
[2019-10-31] MEDS: hydrALAZINE 25 MG TABLET PO SCH ×3 (07:37→21:18)
[2019-10-31] MEDS: FUROSEMIDE 20 MG TABLET PO SCH ×2 (07:38→11:49)
[2019-10-31] MEDS: LACTOBACILLUS RHAMNOSUS GG 1 CAPSULE. PO SCH ×2 (07:39→11:48)
[2019-10-31] MEDS: DOXYCYCLINE HYCLATE 100 MG TABLET PO SCH ×2 (07:39→21:16)
[2019-10-31] MEDS: LISINOPRIL 20 MG TABLET PO SCH (07:39)
[2019-10-31] MEDS: MULTIVITAMIN with MINERAL TABLET. PO SCH (07:39)
[2019-10-31] MEDS: amLODIPine BESYLATE 5 MG TABLET PO SCH (07:40)
[2019-10-31] MEDS: ASPIRIN 325 MG TABLET PO SCH (07:40)
[2019-10-31] MEDS: oxyCODONE IR 5 MG TABLET PO PRN ×4 (07:43→21:19)
--- NOTE | 2019-10-31 08:00 | NUR ---
remains awake and yelling out . He is confused to time, place and situation. will answer to name. was able to get am pills down, Benadryl and Roxicodone was given. incontinent of urine. diaper changed
[2019-10-31] MEDS: NYSTATIN TOPICAL POWDER 15GM BOTTLE. TP SCH (08:56)
[2019-10-31] MEDS: FLUTICASONE 50MCG/NASAL SPRAY 16GM BOTTLE. NS SCH (08:57)
[2019-10-31] MEDS: INSULIN LISPRO 300 UNITS/3 ML VIAL. SQ SCH ×3 (08:59→17:13)
--- NOTE | 2019-10-31 10:00 | NUR ---
slept for about 1.5 hrs. is not quite as loud at this time. spoke with son. they did not realize he was int hospital. his mother is sick and he was the point of notification. switched to his son and given the privacy code. update given.states he will be later
[2019-10-31 11:00] VITALS: BP 146/54
[2019-10-31 15:00] VITALS: BP 124/64
--- NOTE | 2019-10-31 16:19 | NUR ---
yelling out loudly. cleansed and medicated with Roxicodone and Benadryl . takes in applesauce without problems
[2019-10-31] MEDS: QUEtiapine 25 MG TABLET. PO SCH ×2 (16:30→21:19)
[2019-10-31] MEDS: HALOPERIDOL LACTATE 5 MG/ML VIAL. IVP PRN (16:36)
--- NOTE | 2019-10-31 18:02 | PDOC ---
GENERAL General: Patient examined chart reviewed unfortunately his agitated behavior has worsened. There was a concern for dosing Haldol without him being on a monitor ed unit. He did not respond to 1 mg Haldol yesterday at all and 10 mg of IM Zyprexa was administered despite the unmonitored unit and he did not respond to that either. The benefit of the antipsychotic PRN treatment clearly outweighs the risk in this agitated individual. He may stay on this unit but needs to be medicated to stay calmer. A psychiatry consult is ordered for the morning and their assistance is appreciated. I have increased his Seroquel to 50 units twice a day. 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 There does not appear to be any other overlying metabolic issue in his chronic extensive multi-morbidity. Testing or dered yesterday is still pending. Subspecialty support is appreciated. Total time today is 30 minutes with greater than 50% in counseling and coordination of care most of which in discussion with several nurses from the unit. Problems: (1) Encephalopathy chronic (2) AMS (altered mental status) (3) Unable to ambulate (4) Anemia in CKD (chronic kidney disease) (5) DDD (degenerative disc disease), lumbar (6) Weakness (7) Peripheral neuropathy (8) CKD (chronic kidney disease) VITAL SIGNS Vital Signs/I&O: Vital Signs Date Time Temp Pulse Resp B/P (MAP) Pulse Ox O2 Delivery O2 Flow Rate FiO2 10/31/19 16:30 99 Room Air 10/31/19 15:00 98.7 96 20 124/64 (84) 98.7 I & O 10/30/19 10/30/19 10/31/19 15:00 23:00 07:00 Output Total 0 ml Balance 0 ml I sat on the nursing unit all day and heard him shouting and crying out calling for his family members not in any obvious pain or distress other than agitation. Finally we had a dose of Haldol 5 mg IV that allowed him to get some sleep I did not wake the patient up from that. He has been tolerating his diet reporting that he is hungry and he also threw several containers of water down to the ground. Patient was sleeping comfortably when I did go in to assess him finally after he had his Haldol. ALLERGIES Allergies: Allergies Coded Allergies Type Severity Reaction Last Updated Verified cefuroxime Allergy Intermediate 11/02/18 Yes piperacillin Adverse Reaction Intermediate RASH 11/02/18 Yes tazobactam Adverse Reaction Intermediate RASH 11/02/18 Yes zolpidem Adverse Reaction Intermediate HALLUCINATIONS 11/02/18 Yes glipizide Adverse Reaction Mild SENSITIVITY TO SUN 11/02/18 Yes Uncoded Allergies Type Severity Reaction Last Updated Verified DUST Allergy Mild SNEEZING 10/25/15 MEDS Medications: Current Medications Medications (Trade) Dose Ordered Sig/Beatrice Start Time Stop Time Status Last Admin Dose Admin Albuterol Sulfate (Ventolin Neb Soln) 2.5 mg PRN Q4HRS PRN 10/29/19 23:45 Amlodipine Besylate (Norvasc) 5 mg DAILY 10/30/19 09:00 10/31/19 07:40 Aspirin (Jacquelin Aspirin) 162.5 mg DAILYWBKFT 10/30/19 08:00 10/31/19 07:40 Atorvastatin Calcium (Lipitor) 20 mg HS 10/30/19 21:00 10/30/19 21:32 Budesonide (Pulmicort) 0.5 mg RTBID 10/30/19 08:00 10/31/19 07:30 Dextrose (Dextrose 50%-Water Syringe) 12.5 gm PRN Q15MIN PRN 10/30/19 10:30 Diphenhydramine HCl (Benadryl) 25 mg PRN Q6HRS PRN 10/29/19 23:45 10/31/19 15:32 Doxycycline Hyclate (Vibra-Tab) 100 mg BID 10/30/19 09:00 10/31/19 07:39 Fluticasone Propionate (Flonase) 2 spray DAILY 10/30/19 09:00 10/31/19 08:57 Furosemide (Lasix) 40 mg BID92 10/30/19 09:00 10/31/19 11:49 Guaifenesin (Robitussin Dm) 10 ml PRN Q6HRS PRN 10/29/19 23:45 Haloperidol Lactate (Haldol Inj) 5 mg PRN Q6HRS PRN 10/31/19 16:30 10/31/19 16:36 Hydralazine HCl (Apresoline) 50 mg TID 10/30/19 09:00 10/31/19 11:48 Insulin Glargine (Lantus Syringe) 45 unit 1X ONCE 10/30/19 01:00 10/30/19 01:01 DC 10/30/19 01:24 Insulin Human Lispro (HumaLOG) 0-5 UNITS TIDWMEALS 10/30/19 12:00 10/31/19 17:13 Lactobacillus Rhamnosus (Culturelle) 1 cap BIDWMEALS 10/30/19 08:00 10/31/19 11:48 Lisinopril (Prinivil) 40 mg DAILY 10/30/19 09:00 10/31/19 07:39 Lorazepam (Ativan Inj) 1 mg 1X PRN 10/31/19 01:45 10/31/19 02:00 DC 10/31/19 01:58 Multivitamins (Thera M Plus) 1 tab DAILY 10/30/19 09:00 10/31/19 07:39 Non-Formulary Medication (Glucosamine Hcl/ Chondr [place] A Na (Cvs Glucosamine-Chondr Tablet)) 2 each DAILY 10/30/19 09:00 UNV Non-Formulary Medication (Insulin Glargine,Hum.rec.anlog (Lantus Solostar)) 45 unit QHS 10/30/19 21:00 UNV Nystatin (Nystop) 1 ritu DAILY 10/30/19 09:00 10/31/19 08:56 Olanzapine (ZyPREXA IM) 10 mg 1X ONCE 10/31/19 00:15 10/31/19 00:16 DC 10/31/19 00:37 Oxycodone HCl (Roxicodone) 10 mg PRN Q4HRS PRN 10/29/19 23:45 10/31/19 15:32 Pantoprazole Sodium (Protonix) 40 mg DAILYAC 10/30/19 07:30 10/31/19 07:36 Polysaccharide Iron Complex (Niferex 150) 150 mg BIDAFTMEAL 10/30/19 09:00 10/31/19 11:48 Potassium Chloride (Klor-Con) 30 meq DAILYWBKFT 10/30/19 08:00 10/31/19 07:36 Quetiapine Fumarate (SEROquel) 50 mg BID 10/31/19 16:30 Senna/Docusate Sodium (Senna Plus) 1 tab BID 10/30/19 09:00 10/31/19 07:37 Sodium Chloride 1,000 ml @ 1,000 mls/hr 1X ONCE 10/29/19 20:00 10/29/19 20:59 DC 10/29/19 20:32 Vitamin D (Vitamin D3) 2,000 unit DAILY 10/30/19 09:00 10/31/19 07:36 Current Medications Medications (Trade) Dose Ordered Sig/Beatrice Route PRN Reason Start Time Stop Time Status Last Admin Dose Admin Atorvastatin Calcium (Lipitor) 20 mg HS PO 10/30/19 21:00 10/30/19 21:32 Insulin Glargine (Lantus Syringe) 45 unit QHS SQ 10/30/19 21:00 10/30/19 21:39 Quetiapine Fumarate (SEROquel) 25 mg HS PO 10/30/19 21:00 10/31/19 16:18 DC 10/30/19 21:32 Olanzapine (ZyPREXA IM) 10 mg 1X ONCE IM 10/31/19 00:15 10/31/19 00:16 DC 10/31/19 00:37 Lorazepam (Ativan Inj) 1 mg 1X PRN IVP ANXIETY / AGITATION 10/31/19 01:45 10/31/19 02:00 DC 10/31/19 01:58 Haloperidol Lactate (Haldol Inj) 5 mg PRN Q6HRS PRN IVP AGITATION 10/31/19 16:30 10/31/19 16:36 LAB Lab: Laboratory Tests Test 10/30/19 23:17 10/31/19 04:40 10/31/19 11:52 10/31/19 17:01 Glucose (Fingerstick) 182 mg/dL (70-99) H 240 mg/dL (70-99) H 193 mg/dL (70-99) H White Blood Count 11.1 x10^3/uL (4.0-11.0) H Red Blood Count 2.92 x10^6/uL (4.30-5.70) L Hemoglobin 8.0 g/dL (13.0-17.5) L Hematocrit 24.6 % (39.0-53.0) L Mean Corpuscular Volume 84 fL (79-100) Mean Corpuscular Hemoglobin 27 pg (25-35) Mean Corpuscular Hemoglobin Concent 33 g/dL (31-37) Red Cell Distribution Width 15.7 % (11.5-14.5) H Platelet Count 390 x10^3/uL (140-400) Neutrophils (%) (Auto) 70 % (31-73) Lymphocytes (%) (Auto) 16 % (24-48) L Monocytes (%) (Auto) 11 % (0-9) H Eosinophils (%) (Auto) 3 % (0-3) Basophils (%) (Auto) 0 % (0-3) Neutrophils # (Auto) 7.8 x10^3/uL (1.8-7.7) H Lymphocytes # (Auto) 1.7 x10^3/uL (1.0-4.8) Monocytes # (Auto) 1.2 x10^3/uL (0.0-1.1) H Eosinophils # (Auto) 0.4 x10^3/uL (0.0-0.7) Basophils # (Auto) 0.0 x10^3/uL (0.0-0.2) Sodium Level 144 mmol/L (136-145) Potassium Level 3.5 mmol/L (3.5-5.1) Chloride Level 107 mmol/L (98-107) Carbon Dioxide Level 26 mmol/L (21-32) Anion Gap 11 (6-14) Blood Urea Nitrogen 54 mg/dL (8-26) H Creatinine 2.2 mg/dL (0.7-1.3) H Estimated GFR (Cockcroft-Gault) 29.6 BUN/Creatinine Ratio 25 (6-20) H Glucose Level 180 mg/dL (70-99) H Calcium Level 8.9 mg/dL (8.5-10.1) Iron Level 17 ug/dL (65-175) L Total Iron Binding Capacity 127 ug/dL (250-450) L Iron Saturation 13 % (15-34) L Total Bilirubin 0.3 mg/dL (0.2-1.0) Aspartate Amino Transferase (AST) 27 U/L (15-37) Alanine Aminotransferase (ALT) 31 U/L (16-63) Alkaline Phosphatase 96 U/L (46-116) C-Reactive Protein, Quantitative 135.3 mg/L (0-3.3) H Total Protein 7.3 g/dL (6.4-8.2) Albumin 2.0 g/dL (3.4-5.0) L Albumin/Globulin Ratio 0.4 (1.0-1.7) L Thyroid Stimulating Hormone (TSH) 2.916 uIU/mL (0.358-3.74) Laboratory Tests 10/31/19 04:40 Laboratory Tests 10/31/19 04:40 ASSESSMENT & PLAN A&P Plan as noted above This note was created using [employer] and may have omissions and/or errors due to the nature of real-time voice soda clerk. Justicifation of Admission Dx: Justifications for Admission: Justification of Admission Dx: Yes MOHAN LAWSON MD Oct 31, 2019 18:02
[2019-10-31 19:00] VITALS: BP 105/42
--- NOTE | 2019-10-31 20:03 | PDOC1 ---
History & Psych Evaluation Date of Service: DOS: DATE: 10/31/19 TIME: 20:02 Source: Source: Caregiver, Chart review, Patient Identification: Identification Is a 74-year-old female who lives by himself admitted with altered mental status and confusion. Chief Complaint: Chief Complaint Altered mental status, confusion. History of Present Illness: HPI: 74-year-old gentleman who is admitted with altered mental status and confusion seen for initial psychiatric assessment. He is reportedly agitated and aggressive on the unit, received IV Haldol for agitation. He lives by himself. is in hospice care living with children. Upon interview, content of his speech does not make any sense. He appears disorganized and completely confused. He is not aware of the surroundings. Not aware of time place and date. He is completely delirious, minimally responding and superficial in presentation. Pathology is consistent with acute delirious process which could be multifactorial. According to the nursing staff no suicidal or homicidal threats. No evidence of psychosis. No evidence of bipolar mood disorder. Past Psychiatric History: Per chart review notes of prior psychiatric history. Patient is not able to report any history due to lack of communication Past Medical History: Please see medical chart for detail Family History: Psychiatric family history is not available due to patient factor Social History: Social History: He lives by himself. His sons are involved in care. is on hospice and lives with her Son. No recent alcohol abuse or illicit substance use. Current Medications: Current Medications Current Medications Medications (Trade) Dose Ordered Sig/Beatrice Start Time Stop Time Status Last Admin Dose Admin Albuterol Sulfate (Ventolin Neb Soln) 2.5 mg PRN Q4HRS PRN 10/29/19 23:45 Amlodipine Besylate (Norvasc) 5 mg DAILY 10/30/19 09:00 10/31/19 07:40 5 MG Aspirin (Jacquelin Aspirin) 162.5 mg DAILYWBKFT 10/30/19 08:00 10/31/19 07:40 162.5 MG Atorvastatin Calcium (Lipitor) 20 mg HS 10/30/19 21:00 10/30/19 21:32 20 MG Budesonide (Pulmicort) 0.5 mg RTBID 10/30/19 08:00 10/31/19 07:30 0.5 MG Dextrose (Dextrose 50%-Water Syringe) 12.5 gm PRN Q15MIN PRN 10/30/19 10:30 Diphenhydramine HCl (Benadryl) 25 mg PRN Q6HRS PRN 10/29/19 23:45 10/31/19 15:32 25 MG Doxycycline Hyclate (Vibra-Tab) 100 mg BID 10/30/19 09:00 10/31/19 07:39 100 MG Fluticasone Propionate (Flonase) 2 spray DAILY 10/30/19 09:00 10/31/19 08:57 2 SPRAY Furosemide (Lasix) 40 mg BID92 10/30/19 09:00 10/31/19 11:49 40 MG Guaifenesin (Robitussin Dm) 10 ml PRN Q6HRS PRN 10/29/19 23:45 Haloperidol Lactate (Haldol Inj) 5 mg PRN Q6HRS PRN 10/31/19 16:30 10/31/19 16:36 5 MG Hydralazine HCl (Apresoline) 50 mg TID 10/30/19 09:00 10/31/19 11:48 50 MG Insulin Glargine (Lantus Syringe) 45 unit 1X ONCE 10/30/19 01:00 10/30/19 01:01 DC 10/30/19 01:24 45 UNIT Insulin Human Lispro (HumaLOG) 0-5 UNITS TIDWMEALS 10/30/19 12:00 10/31/19 17:13 2 UNITS Lactobacillus Rhamnosus (Culturelle) 1 cap BIDWMEALS 10/30/19 08:00 10/31/19 11:48 1 CAP Lisinopril (Prinivil) 40 mg DAILY 10/30/19 09:00 10/31/19 07:39 40 MG Lorazepam (Ativan Inj) 1 mg 1X PRN 10/31/19 01:45 10/31/19 02:00 DC 10/31/19 01:58 1 MG Multivitamins (Thera M Plus) 1 tab DAILY 10/30/19 09:00 10/31/19 07:39 1 TAB Non-Formulary Medication (Glucosamine Hcl/ Chondr [place] A Na (Cvs Glucosamine-Chondr Tablet)) 2 each DAILY 10/30/19 09:00 UNV Non-Formulary Medication (Insulin Glargine,Hum.rec.anlog (Lantus Solostar)) 45 unit QHS 10/30/19 21:00 UNV Nystatin (Nystop) 1 ritu DAILY 10/30/19 09:00 10/31/19 08:56 1 RITU Olanzapine (ZyPREXA IM) 10 mg 1X ONCE 10/31/19 00:15 10/31/19 00:16 DC 10/31/19 00:37 10 MG Oxycodone HCl (Roxicodone) 10 mg PRN Q4HRS PRN 10/29/19 23:45 10/31/19 15:32 10 MG Pantoprazole Sodium (Protonix) 40 mg DAILYAC 10/30/19 07:30 10/31/19 07:36 40 MG Polysaccharide Iron Complex (Niferex 150) 150 mg BIDAFTMEAL 10/30/19 09:00 10/31/19 11:48 150 MG Potassium Chloride (Klor-Con) 30 meq DAILYWBKFT 10/30/19 08:00 10/31/19 07:36 30 MEQ Quetiapine Fumarate (SEROquel) 50 mg BID 10/31/19 16:30 Senna/Docusate Sodium (Senna Plus) 1 tab BID 10/30/19 09:00 10/31/19 07:37 1 TAB Sodium Chloride 1,000 ml @ 1,000 mls/hr 1X ONCE 10/29/19 20:00 10/29/19 20:59 DC 10/29/19 20:32 1,000 MLS/HR Vitamin D (Vitamin D3) 2,000 unit DAILY 10/30/19 09:00 10/31/19 07:36 2,000 UNIT Allergies: Allergies: Coded Allergies: cefuroxime (Verified Allergy, Intermediate, 11/02/18) piperacillin (Verified Adverse Reaction, Intermediate, RASH, 11/02/18) TOLERATED ERTAPENEM tazobactam (Verified Adverse Reaction, Intermediate, RASH, 11/02/18) TOLERATED ERTAPENEM zolpidem (Verified Adverse Reaction, Intermediate, HALLUCINATIONS, 11/02/18) glipizide (Verified Adverse Reaction, Mild, SENSITIVITY TO SUN, 11/02/18) Uncoded Allergies: DUST (Allergy, Mild, SNEEZING, 10/25/15) Mental Status Examination: Mental Status Examination gentleman appears as a stated age Uncooperative due to altered mental status Disoriented Thought processes disorganized Denies auditory or visual hallucinations. No suicidal or homicidal thoughts No abnormal perception. Mood is dysphoric Affect is dysthymic Insight is poor Judgment is poor Impulse control is poor Attention span and concentration impaired Recent and remote memory impaired ROS: 14 point review of system is otherwise negative except for stated above. Physical Exam: Refer to Physician's note. CELL BUILDER: No focal deficit MSK: No EPS, TDK, or abnormal involuntary movements Vitals: Vitals Vital Signs Date Time Temp Pulse Resp B/P (MAP) Pulse Ox O2 Delivery O2 Flow Rate FiO2 10/31/19 19:00 99.5 92 17 105/42 (63) 95 Room Air 99.5 Labs: Labs Laboratory Tests Test 10/30/19 10:21 10/30/19 11:59 10/30/19 16:23 10/30/19 23:17 Glucose (Fingerstick) 210 mg/dL (70-99) 207 mg/dL (70-99) 248 mg/dL (70-99) 182 mg/dL (70-99) Test 10/31/19 04:40 10/31/19 11:52 10/31/19 17:01 White Blood Count 11.1 x10^3/uL (4.0-11.0) Red Blood Count 2.92 x10^6/uL (4.30-5.70) Hemoglobin 8.0 g/dL (13.0-17.5) Hematocrit 24.6 % (39.0-53.0) Mean Corpuscular Volume 84 fL (79-100) Mean Corpuscular Hemoglobin 27 pg (25-35) Mean Corpuscular Hemoglobin Concent 33 g/dL (31-37) Red Cell Distribution Width 15.7 % (11.5-14.5) Platelet Count 390 x10^3/uL (140-400) Neutrophils (%) (Auto) 70 % (31-73) Lymphocytes (%) (Auto) 16 % (24-48) Monocytes (%) (Auto) 11 % (0-9) Eosinophils (%) (Auto) 3 % (0-3) Basophils (%) (Auto) 0 % (0-3) Neutrophils # (Auto) 7.8 x10^3/uL (1.8-7.7) Lymphocytes # (Auto) 1.7 x10^3/uL (1.0-4.8) Monocytes # (Auto) 1.2 x10^3/uL (0.0-1.1) Eosinophils # (Auto) 0.4 x10^3/uL (0.0-0.7) Basophils # (Auto) 0.0 x10^3/uL (0.0-0.2) Sodium Level 144 mmol/L (136-145) Potassium Level 3.5 mmol/L (3.5-5.1) Chloride Level 107 mmol/L (98-107) Carbon Dioxide Level 26 mmol/L (21-32) Anion Gap 11 (6-14) Blood Urea Nitrogen 54 mg/dL (8-26) Creatinine 2.2 mg/dL (0.7-1.3) Estimated GFR (Cockcroft-Gault) 29.6 BUN/Creatinine Ratio 25 (6-20) Glucose Level 180 mg/dL (70-99) Calcium Level 8.9 mg/dL (8.5-10.1) Iron Level 17 ug/dL (65-175) Total Iron Binding Capacity 127 ug/dL (250-450) Iron Saturation 13 % (15-34) Total Bilirubin 0.3 mg/dL (0.2-1.0) Aspartate Amino Transf (AST/SGOT) 27 U/L (15-37) Alanine Aminotransferase (ALT/SGPT) 31 U/L (16-63) Alkaline Phosphatase 96 U/L (46-116) C-Reactive Protein, Quantitative 135.3 mg/L (0-3.3) Total Protein 7.3 g/dL (6.4-8.2) Albumin 2.0 g/dL (3.4-5.0) Albumin/Globulin Ratio 0.4 (1.0-1.7) Thyroid Stimulating Hormone (TSH) 2.916 uIU/mL (0.358-3.74) Glucose (Fingerstick) 240 mg/dL (70-99) 193 mg/dL (70-99) Laboratory Tests Test 10/30/19 23:17 10/31/19 04:40 10/31/19 11:52 10/31/19 17:01 Glucose (Fingerstick) 182 mg/dL (70-99) 240 mg/dL (70-99) 193 mg/dL (70-99) White Blood Count 11.1 x10^3/uL (4.0-11.0) Red Blood Count 2.92 x10^6/uL (4.30-5.70) Hemoglobin 8.0 g/dL (13.0-17.5) Hematocrit 24.6 % (39.0-53.0) Mean Corpuscular Volume 84 fL (79-100) Mean Corpuscular Hemoglobin 27 pg (25-35) Mean Corpuscular Hemoglobin Concent 33 g/dL (31-37) Red Cell Distribution Width 15.7 % (11.5-14.5) Platelet Count 390 x10^3/uL (140-400) Neutrophils (%) (Auto) 70 % (31-73) Lymphocytes (%) (Auto) 16 % (24-48) Monocytes (%) (Auto) 11 % (0-9) Eosinophils (%) (Auto) 3 % (0-3) Basophils (%) (Auto) 0 % (0-3) Neutrophils # (Auto) 7.8 x10^3/uL (1.8-7.7) Lymphocytes # (Auto) 1.7 x10^3/uL (1.0-4.8) Monocytes # (Auto) 1.2 x10^3/uL (0.0-1.1) Eosinophils # (Auto) 0.4 x10^3/uL (0.0-0.7) Basophils # (Auto) 0.0 x10^3/uL (0.0-0.2) Sodium Level 144 mmol/L (136-145) Potassium Level 3.5 mmol/L (3.5-5.1) Chloride Level 107 mmol/L (98-107) Carbon Dioxide Level 26 mmol/L (21-32) Anion Gap 11 (6-14) Blood Urea Nitrogen 54 mg/dL (8-26) Creatinine 2.2 mg/dL (0.7-1.3) Estimated GFR (Cockcroft-Gault) 29.6 BUN/Creatinine Ratio 25 (6-20) Glucose Level 180 mg/dL (70-99) Calcium Level 8.9 mg/dL (8.5-10.1) Iron Level 17 ug/dL (65-175) Total Iron Binding Capacity 127 ug/dL (250-450) Iron Saturation 13 % (15-34) Total Bilirubin 0.3 mg/dL (0.2-1.0) Aspartate Amino Transf (AST/SGOT) 27 U/L (15-37) Alanine Aminotransferase (ALT/SGPT) 31 U/L (16-63) Alkaline Phosphatase 96 U/L (46-116) C-Reactive Protein, Quantitative 135.3 mg/L (0-3.3) Total Protein 7.3 g/dL (6.4-8.2) Albumin 2.0 g/dL (3.4-5.0) Albumin/Globulin Ratio 0.4 (1.0-1.7) Thyroid Stimulating Hormone (TSH) 2.916 uIU/mL (0.358-3.74) Diagnosis: Diagnosis: 1. Acute delirium likely hyperactive hypoactive, multifactorial 2. Assessment: Gentleman with apparently no psychiatric history who lives by himself likely struggling with acute delirious process. Predominantly appears to be hyperactive type. Received IV Haldol that calm him down. He appears in distress and sedated likely secondary to Haldol and Seroquel. Recommending to discontinue Seroquel and start Haldol which is less sedating 2.5 mg twice daily for the resolution of delirium and agitation. Plan: DC Seroquel. Start Haldol 2.5 mg twice a day for the resolution of delirium and agitation. Continue IV Haldol on as needed basis to manage aggression and psychosis. Avoid sedatives and hypnotics. Apply delirium protocol. CHOLO SAWANT MD Oct 31, 2019 20:03
[2019-10-31] MEDS: ATORVASTATIN CALCIUM 20 MG TABLET PO SCH (21:16)
[2019-10-31] MEDS: INSULIN GLARGINE SYRINGE. SQ SCH (21:32)
[2019-11-01 03:00] VITALS: BP 101/34
[2019-11-01] MEDS: oxyCODONE IR 5 MG TABLET PO PRN ×3 (03:55→17:28)
[2019-11-01] MEDS: diphenhydrAMINE HCL 25 MG CAPSULE PO PRN ×2 (03:55→20:39)
[2019-11-01 07:00] VITALS: BP 117/46
[2019-11-01] MEDS: BUDESONIDE 0.5 MG/2 ML NEBU. NEB SCH ×2 (07:37→19:35)
[2019-11-01] MEDS: FLUTICASONE 50MCG/NASAL SPRAY 16GM BOTTLE. NS SCH (07:58)
[2019-11-01] MEDS: LISINOPRIL 20 MG TABLET PO SCH (07:59)
[2019-11-01] MEDS: amLODIPine BESYLATE 5 MG TABLET PO SCH (07:59)
[2019-11-01] MEDS: ASPIRIN 325 MG TABLET PO SCH (07:59)
[2019-11-01] MEDS: QUEtiapine 25 MG TABLET. PO SCH (07:59)
[2019-11-01] MEDS: PANTOPRAZOLE 40 MG TABLET.DR. PO SCH (07:59)
[2019-11-01] MEDS: hydrALAZINE 25 MG TABLET PO SCH ×3 (08:00→20:40)
[2019-11-01] MEDS: DOXYCYCLINE HYCLATE 100 MG TABLET PO SCH ×2 (08:00→20:40)
[2019-11-01] MEDS: SENNOSIDES/DOCUSATE 8.6/50MG TABLET. PO SCH ×2 (08:00→20:40)
[2019-11-01] MEDS: LACTOBACILLUS RHAMNOSUS GG 1 CAPSULE. PO SCH ×2 (08:00→17:28)
[2019-11-01] MEDS: IRON POLYSACCHARIDE COMPLEX 150 MG CAPSULE PO SCH ×2 (08:00→17:28)
[2019-11-01] MEDS: POTASSIUM CHLORIDE 10 MEQ TABLET.ER. PO SCH (08:01)
[2019-11-01] MEDS: MULTIVITAMIN with MINERAL TABLET. PO SCH (08:01)
[2019-11-01] MEDS: CHOLECALCIFEROL (VITAMIN D3) 1,000 UNIT TABLET PO SCH (08:01)
[2019-11-01] MEDS: FUROSEMIDE 20 MG TABLET PO SCH (08:01)
[2019-11-01] MEDS: NYSTATIN TOPICAL POWDER 15GM BOTTLE. TP SCH (08:05)
[2019-11-01] MEDS: INSULIN LISPRO 300 UNITS/3 ML VIAL. SQ SCH ×3 (08:12→17:00)
[2019-11-01 09:13] LABS: BASO # 0.1 x10^3/uL (0.0-0.2); BASO % 1 % (0-3); EOS # 0.2 x10^3/uL (0.0-0.7); EOS % 2 % (0-3); HEMATOCRIT 23.1 % (39.0-53.0); HEMOGLOBIN 7.3 g/dL (13.0-17.5); LYMPH # 1.5 x10^3/uL (1.0-4.8); LYMPH % 13 % (24-48); MEAN CORPUSCULAR HEMOGLOBIN 27 pg (25-35); MEAN CORPUSCULAR HGB CONC 32 g/dL (31-37); MEAN CORPUSCULAR VOLUME 84 fL (79-100); MONO # 1.2 x10^3/uL (0.0-1.1); MONO % 11 % (0-9); NEUT # 8.1 x10^3/uL (1.8-7.7); NEUT % 74 % (31-73); PLATELET COUNT 381 x10^3/uL (140-400); RED BLOOD COUNT 2.74 x10^6/uL (4.30-5.70); RED CELL DISTRIBUTION WIDTH 15.8 % (11.5-14.5); WHITE BLOOD COUNT 11.1 x10^3/uL (4.0-11.0)
[2019-11-01 09:39] LABS: ALBUMIN 1.9 g/dL (3.4-5.0); ALBUMIN/GLOBULIN RATIO 0.4 (1.0-1.7); CALCIUM 8.5 mg/dL (8.5-10.1); CREATININE 2.5 mg/dL (0.7-1.3); GFR 25.5; POTASSIUM 4.3 mmol/L (3.5-5.1); TOTAL BILIRUBIN 0.3 mg/dL (0.2-1.0); TOTAL PROTEIN 6.8 g/dL (6.4-8.2)
[2019-11-01 11:00] VITALS: BP 120/44
--- NOTE | 2019-11-01 11:04 | NUR ---
SW following. Discussed with RN, pt was at [facility] for [facility]. RN and physician wondering about whether pt would qualify for alice-psych. Dr. Gifford to reach out to pt's son/ DPOA, Juan Carlos to discuss. Wheelchair bound. RN ordering COVID swab for placement. SW will continue to follow.
--- NOTE | 2019-11-01 12:24 | PDOC ---
[employer] PROGRESS NOTE Date of Service DOS: DATE: 11/01/19 TIME: 12:21 Chief Complaint Chief Complaint Patient presents with altered mental status and falls History of Present Illness History of Present Illness 11/01/2019 Patient was seen and examined Patient was resting in NAD Discussed with case management Discussed with RN Chart reviewed Vitals/I&O Vitals/I&O: Vital Signs Date Time Temp Pulse Resp B/P (MAP) Pulse Ox O2 Delivery O2 Flow Rate FiO2 11/01/19 11:00 97.6 77 16 120/44 (69) 98 Room Air 97.6 I & O 10/31/19 10/31/19 11/01/19 15:00 23:00 07:00 Intake Total 360 ml 50 ml 300 ml Balance 360 ml 50 ml 300 ml Physical Exam General: No acute distress Heart: Regular rate Lungs: Clear Abdomen: Normal bowel sounds Extremities: No edema Skin: Other (Chronic venous insufficiency present on bilateral lower extremeties) Labs Labs: Laboratory Tests Test 10/31/19 17:01 10/31/19 20:17 11/01/19 07:26 11/01/19 08:21 Glucose (Fingerstick) 193 mg/dL (70-99) 182 mg/dL (70-99) 158 mg/dL (70-99) White Blood Count 11.1 x10^3/uL (4.0-11.0) Red Blood Count 2.74 x10^6/uL (4.30-5.70) Hemoglobin 7.3 g/dL (13.0-17.5) Hematocrit 23.1 % (39.0-53.0) Mean Corpuscular Volume 84 fL (79-100) Mean Corpuscular Hemoglobin 27 pg (25-35) Mean Corpuscular Hemoglobin Concent 32 g/dL (31-37) Red Cell Distribution Width 15.8 % (11.5-14.5) Platelet Count 381 x10^3/uL (140-400) Neutrophils (%) (Auto) 74 % (31-73) Lymphocytes (%) (Auto) 13 % (24-48) Monocytes (%) (Auto) 11 % (0-9) Eosinophils (%) (Auto) 2 % (0-3) Basophils (%) (Auto) 1 % (0-3) Neutrophils # (Auto) 8.1 x10^3/uL (1.8-7.7) Lymphocytes # (Auto) 1.5 x10^3/uL (1.0-4.8) Monocytes # (Auto) 1.2 x10^3/uL (0.0-1.1) Eosinophils # (Auto) 0.2 x10^3/uL (0.0-0.7) Basophils # (Auto) 0.1 x10^3/uL (0.0-0.2) Sodium Level 142 mmol/L (136-145) Potassium Level 4.3 mmol/L (3.5-5.1) Chloride Level 106 mmol/L (98-107) Carbon Dioxide Level 27 mmol/L (21-32) Anion Gap 9 (6-14) Blood Urea Nitrogen 59 mg/dL (8-26) Creatinine 2.5 mg/dL (0.7-1.3) Estimated GFR (Cockcroft-Gault) 25.5 BUN/Creatinine Ratio 24 (6-20) Glucose Level 146 mg/dL (70-99) Calcium Level 8.5 mg/dL (8.5-10.1) Total Bilirubin 0.3 mg/dL (0.2-1.0) Aspartate Amino Transf (AST/SGOT) 31 U/L (15-37) Alanine Aminotransferase (ALT/SGPT) 27 U/L (16-63) Alkaline Phosphatase 91 U/L (46-116) Total Protein 6.8 g/dL (6.4-8.2) Albumin 1.9 g/dL (3.4-5.0) Albumin/Globulin Ratio 0.4 (1.0-1.7) Test 11/01/19 10:46 Glucose (Fingerstick) 149 mg/dL (70-99) Review of Systems Review of Systems: Patient denies nausea. Patient denies weakness Assessment and Plan Assessmemt and Plan Problems Medical Problems: (1) Fall Status: Acute Acute on chronic metabolic encephalopathy Failure to thrive Weakness Neuropathy Chronic kidney disease Obesity Diabetes Hypertension Wounds Anemia Plan Continue supportive care Wound care [facility] psych eval Home meds DVT prophylaxis Full code Long-term prognosis appears poor Comment Review of Relevant I have reviewed the following items minnie (where applicable) has been applied. Medications: Current Medications Medications (Trade) Dose Ordered Sig/Beatrice Route PRN Reason Start Time Stop Time Status Last Admin Dose Admin Quetiapine Fumarate (SEROquel) 50 mg BID PO 10/31/19 16:30 11/01/19 07:59 Haloperidol Lactate (Haldol Inj) 5 mg PRN Q6HRS PRN IVP AGITATION 10/31/19 16:30 10/31/19 16:36 ROHIT DAMON III DO Nov 01, 2019 12:24
--- NOTE | 2019-11-01 13:29 | PDOC2 ---
CONSULT Date of Consult Date of Consult DATE: 11/01/19 TIME: 13:24 Reason for Consult Reason for Consult: RENAL FAILURE Referring Physician Referring Physician: GUILHERME Identification/Chief Complaint Chief Complaint WEAKNESS Source Source: Chart review History of Present Illness Reason for Visit: THIS IS A 74 YR OLD WITH FALLS. ADMITTED FOR EVALUATION AND TX. ALSO NOTED TO HAVE CONFUSION. HEAD AND NECK IMAGING IS NEGATIVE. CR OF 2.5. HAS HX OF COMPLEX RENAL CYST BASED ON IMAGING HX FROM THE PAST. CR OF 2.0 ON AVG C/W STAGE 3 CKD. APPEARS CONFUSED AND DEHYDRATION Past Medical History Cardiovascular: HTN, Hyperlipidemia, Other Pulmonary: Other Heme/Onc: Anemia NOS Psych: Depression Musculoskeletal: Other Renal/: Chronic renal insuff, Benign prostatic enlarg. Endocrine: Diabetes Past Surgical History Past Surgical History: Other Family History Family History: Diabetes, Hypertension Social History ALCOHOL: none Drugs: None Lives: with Family Current Problem List Problem List Problems Medical Problems: (1) Fall Status: Acute Current Medications Current Medications Current Medications Sodium Chloride 1,000 ml @ 1,000 mls/hr 1X ONCE IV Last administered on 10/29/19at 20:32; Start 10/29/19 at 20:00; Stop 10/29/19 at 20:59; Status DC Albuterol Sulfate (Ventolin Neb Soln) 2.5 mg PRN Q4HRS PRN NEB SHORTNESS OF BREATH; Start 10/29/19 at 23:45 Amlodipine Besylate (Norvasc) 5 mg DAILY PO Last administered on 11/01/19at 07:59; Start 10/30/19 at 09:00 Aspirin (Jacquelin Aspirin) 162.5 mg DAILYWBKFT PO Last administered on 11/01/19at 07:59; Start 10/30/19 at 08:00 Atorvastatin Calcium (Lipitor) 20 mg HS PO Last administered on 10/31/19at 21:16; Start 10/30/19 at 21:00 Budesonide (Pulmicort) 0.5 mg RTBID NEB Last administered on 11/01/19at 07:37; Start 10/30/19 at 08:00 Vitamin D (Vitamin D3) 2,000 unit DAILY PO Last administered on 11/01/19at 08:01; Start 10/30/19 at 09:00 Doxycycline Hyclate (Vibra-Tab) 100 mg BID PO Last administered on 11/01/19 08:00; Start 10/30/19 at 09:00 Furosemide (Lasix) 40 mg BID92 PO Last administered on 11/01/19 08:01; Start 10/30/19 at 09:00 Guaifenesin (Robitussin Dm) 10 ml PRN Q6HRS PRN PO COUGH, 1st CHOICE; Start 10/29/19 at 23:45 Hydralazine HCl (Apresoline) 50 mg TID PO Last administered on 11/01/19 08:00; Start 10/30/19 at 09:00 Polysaccharide Iron Complex (Niferex 150) 150 mg BIDAFTMEAL PO Last administered on 11/01/19 08:00; Start 10/30/19 at 09:00 Lisinopril (Prinivil) 40 mg DAILY PO Last administered on 11/01/19 07:59; Start 10/30/19 at 09:00 Multivitamins (Thera M Plus) 1 tab DAILY PO Last administered on 11/01/19 08:01; Start 10/30/19 at 09:00 Nystatin (Nystop) 1 ritu DAILY TP Last administered on 11/01/19 08:05; Start 10/30/19 at 09:00 Oxycodone HCl (Roxicodone) 10 mg PRN Q4HRS PRN PO SEVERE PAIN 7-10 Last administered on 11/01/19 08:00; Start 10/29/19 at 23:45 Pantoprazole Sodium (Protonix) 40 mg DAILYAC PO Last administered on 11/01/19 07:59; Start 10/30/19 at 07:30 Potassium Chloride (Klor-Con) 30 meq DAILYWBKFT PO Last administered on 11/01/19 08:01; Start 10/30/19 at 08:00 Senna/Docusate Sodium (Senna Plus) 1 tab BID PO Last administered on 11/01/19 08:00; Start 10/30/19 at 09:00 Diphenhydramine HCl (Benadryl) 25 mg PRN Q6HRS PRN PO ALLERGIES Last administered on 11/01/19 03:55; Start 10/29/19 at 23:45 Fluticasone Propionate (Flonase) 2 spray DAILY NS Last administered on 8/24/20at 07:58; Start 10/30/19 at 09:00 Non-Formulary Medication (Glucosamine Hcl/ Chondr [place] A Na (Cvs Glucosamine- Chondr Tablet)) 2 each DAILY PO ; Start 10/30/19 at 09:00; Status UNV Non-Formulary Medication (Insulin Glargine,Hum.rec.anlog (Lantus Solostar)) 45 unit QHS SQ ; Start 10/30/19 at 21:00; Status UNV Lactobacillus Rhamnosus (Culturelle) 1 cap BIDWMEALS PO Last administered on 11/01/19at 08:00; Start 10/30/19 at 08:00 Insulin Glargine (Lantus Syringe) 45 unit QHS SQ Last administered on 10/31/19at 21:32; Start 10/30/19 at 21:00 Insulin Glargine (Lantus Syringe) 45 unit 1X ONCE SQ Last administered on 10/30/19at 01:24; Start 10/30/19 at 01:00; Stop 10/30/19 at 01:01; Status DC Olanzapine (ZyPREXA IM) 5 mg 1X ONCE IM Last administered on 10/30/19at 02:32; Start 10/30/19 at 02:30; Stop 10/30/19 at 02:31; Status DC Insulin Human Lispro (HumaLOG) 0-5 UNITS TIDWMEALS SQ Last administered on 10/31at 08:12; Start 10/30/19 at 12:00 Dextrose (Dextrose 50%-Water Syringe) 12.5 gm PRN Q15MIN PRN IV SEE COMMENTS; Start 10/30/19 at 10:30 Quetiapine Fumarate (SEROquel) 25 mg HS PO Last administered on 10/30/19at 21:32; Start 10/30/19 at 21:00; Stop 10/31/19 at 16:18; Status DC Haloperidol Lactate (Haldol Inj) 1 mg Q4HRS W/A PRN IVP agitation Last administered on 10/30/19at 17:26; Start 10/30/19 at 17:00; Stop 10/31/19 at 00:08; Status DC Olanzapine (ZyPREXA IM) 10 mg 1X ONCE IM Last administered on 10/31/19at 00:37; Start 10/31/19 at 00:15; Stop 10/31/19 at 00:16; Status DC Lorazepam (Ativan Inj) 1 mg 1X PRN IVP ANXIETY / AGITATION Last administered on 10/31/19at 01:58; Start 10/31/19 at 01:45; Stop 10/31/19 at 02:00; Status DC Quetiapine Fumarate (SEROquel) 50 mg BID PO Last administered on 11/01/19at 07:59; Start 10/31/19 at 16:30 Haloperidol Lactate (Haldol Inj) 5 mg PRN Q6HRS PRN IVP AGITATION Last administered on 10/31/19at 16:36; Start 10/31/19 at 16:30 Active Scripts Active Doxycycline Hyclate 100 Mg Tablet 100 Mg PO BID 3 Days Klor-Con 10 (Potassium Chloride) 10 Meq Tablet.er 30 Meq PO DAILYWBKFT 7 Days Amlodipine Besylate 5 Mg Tablet 5 Mg PO DAILY Hydralazine Hcl 25 Mg Tablet 50 Mg PO TID Thera-M Tablet (Multivits,Ca,Minerals/Iron/Fa) 1 Each Tablet 1 Tab PO DAILY MDD 1 Budesonide 0.5 Mg/2 Ml Ampul.neb 0.5 Mg NEB RTBID MDD 1 Guaifenesin Dm Syrup (Guaifenesin/Dextromethorphan) 5 Ml Syrup 10 Ml PO PRN Q6HRS PRN MDD 1 Proair Hfa (Albuterol Sulfate) 8.5 Gm Hfa.aer.ad 2.5 Mg NEB PRN Q4HRS PRN MDD 1 Poly-Iron (Iron Polysaccharides Complex) 150 Mg Capsule 150 Mg PO BID MDD 1 Oxycodone Hcl Immed.release (Oxycodone Hcl) 5 Mg Tablet 10 Mg PO PRN Q4HRS PRN MDD 1 Reported Carvedilol 25 Mg Tablet 25 Mg PO BIDWMEALS Aspirin 325 Mg Tablet 0.5 Tab PO DAILY Senna-S Tablet (Sennosides/Docusate Sodium) 1 Each Tablet 1 Each PO BID Nyamyc (Nystatin) 15 Gm Powder 15 Gm TP DAILY Culturelle (Lactobacillus Rhamnosus Gg) 1 Each Capsule 1 Each PO BIDWMEALS Lantus Solostar (Insulin Glargine,Hum.rec.anlog) 100 Unit/1 Ml Insuln.pen 45 Unit SQ QHS Cvs Glucosamine-Chondr Tablet (Glucosamine Hcl/Chondr [place] A Na) 1 Each Tablet 2 Each PO DAILY Flonase Allergy Relief (Fluticasone Propionate) 9.9 Ml [place].susp 2 Sprays NS DAILY Diphenhydramine Hcl 50 Mg Capsule 25 Mg PO Q6HRS PRN Vitamin D3 (Cholecalciferol (Vitamin D3)) 1,000 Unit Tablet 2,000 Unit PO DAILY Atorvastatin Calcium 20 Mg Tablet DAILY Furosemide 20 Mg Tablet 40 Mg BID Lisinopril 40 Mg Tablet 40 DAILY Carvedilol 25 Mg Tablet 25 BID Pantoprazole Sodium (Pantoprazole Sodium) 40 Mg Tablet.dr DAILY Allergies Allergies: Coded Allergies: cefuroxime (Verified Allergy, Intermediate, 11/02/18) piperacillin (Verified Adverse Reaction, Intermediate, RASH, 11/02/18) TOLERATED ERTAPENEM tazobactam (Verified Adverse Reaction, Intermediate, RASH, 11/02/18) TOLERATED ERTAPENEM zolpidem (Verified Adverse Reaction, Intermediate, HALLUCINATIONS, 11/02/18) glipizide (Verified Adverse Reaction, Mild, SENSITIVITY TO SUN, 11/02/18) Uncoded Allergies: DUST (Allergy, Mild, SNEEZING, 10/25/15) ROS Review of System UNABLE TO OBTAIN Physical Exam General: Alert, Cooperative, No acute distress Lungs: Clear to auscultation Heart: Regular rate Abdomen: Normal bowel sounds, Soft Extremities: No edema Skin: No breakdown Neuro: Other (CONFUSED) Psych/Mental Status: Other (FLAT) MUSCULOSKELETAL: No joint tenderness, No deformity Vitals VITALS Vital Signs Date Time Temp Pulse Resp B/P (MAP) Pulse Ox O2 Delivery O2 Flow Rate FiO2 11/01/19 11:00 97.6 77 16 120/44 (69) 98 Room Air 97.6 Labs Labs Laboratory Tests Test 10/30/19 16:23 10/30/19 23:17 10/31/19 04:40 10/31/19 07:54 Glucose (Fingerstick) 248 mg/dL (70-99) 182 mg/dL (70-99) 189 mg/dL (70-99) White Blood Count 11.1 x10^3/uL (4.0-11.0) Red Blood Count 2.92 x10^6/uL (4.30-5.70) Hemoglobin 8.0 g/dL (13.0-17.5) Hematocrit 24.6 % (39.0-53.0) Mean Corpuscular Volume 84 fL (79-100) Mean Corpuscular Hemoglobin 27 pg (25-35) Mean Corpuscular Hemoglobin Concent 33 g/dL (31-37) Red Cell Distribution Width 15.7 % (11.5-14.5) Platelet Count 390 x10^3/uL (140-400) Neutrophils (%) (Auto) 70 % (31-73) Lymphocytes (%) (Auto) 16 % (24-48) Monocytes (%) (Auto) 11 % (0-9) Eosinophils (%) (Auto) 3 % (0-3) Basophils (%) (Auto) 0 % (0-3) Neutrophils # (Auto) 7.8 x10^3/uL (1.8-7.7) Lymphocytes # (Auto) 1.7 x10^3/uL (1.0-4.8) Monocytes # (Auto) 1.2 x10^3/uL (0.0-1.1) Eosinophils # (Auto) 0.4 x10^3/uL (0.0-0.7) Basophils # (Auto) 0.0 x10^3/uL (0.0-0.2) Sodium Level 144 mmol/L (136-145) Potassium Level 3.5 mmol/L (3.5-5.1) Chloride Level 107 mmol/L (98-107) Carbon Dioxide Level 26 mmol/L (21-32) Anion Gap 11 (6-14) Blood Urea Nitrogen 54 mg/dL (8-26) Creatinine 2.2 mg/dL (0.7-1.3) Estimated GFR (Cockcroft-Gault) 29.6 BUN/Creatinine Ratio 25 (6-20) Glucose Level 180 mg/dL (70-99) Calcium Level 8.9 mg/dL (8.5-10.1) Iron Level 17 ug/dL (65-175) Total Iron Binding Capacity 127 ug/dL (250-450) Iron Saturation 13 % (15-34) Total Bilirubin 0.3 mg/dL (0.2-1.0) Aspartate Amino Transf (AST/SGOT) 27 U/L (15-37) Alanine Aminotransferase (ALT/SGPT) 31 U/L (16-63) Alkaline Phosphatase 96 U/L (46-116) C-Reactive Protein, Quantitative 135.3 mg/L (0-3.3) Total Protein 7.3 g/dL (6.4-8.2) Albumin 2.0 g/dL (3.4-5.0) Albumin/Globulin Ratio 0.4 (1.0-1.7) Vitamin B12 Level 418 pg/mL (247-911) Thyroid Stimulating Hormone (TSH) 2.916 uIU/mL (0.358-3.74) Test 10/31/19 11:52 10/31/19 17:01 10/31/19 20:17 11/01/19 07:26 Glucose (Fingerstick) 240 mg/dL (70-99) 193 mg/dL (70-99) 182 mg/dL (70-99) 158 mg/dL (70-99) Test 11/01/19 08:21 11/01/19 10:46 White Blood Count 11.1 x10^3/uL (4.0-11.0) Red Blood Count 2.74 x10^6/uL (4.30-5.70) Hemoglobin 7.3 g/dL (13.0-17.5) Hematocrit 23.1 % (39.0-53.0) Mean Corpuscular Volume 84 fL (79-100) Mean Corpuscular Hemoglobin 27 pg (25-35) Mean Corpuscular Hemoglobin Concent 32 g/dL (31-37) Red Cell Distribution Width 15.8 % (11.5-14.5) Platelet Count 381 x10^3/uL (140-400) Neutrophils (%) (Auto) 74 % (31-73) Lymphocytes (%) (Auto) 13 % (24-48) Monocytes (%) (Auto) 11 % (0-9) Eosinophils (%) (Auto) 2 % (0-3) Basophils (%) (Auto) 1 % (0-3) Neutrophils # (Auto) 8.1 x10^3/uL (1.8-7.7) Lymphocytes # (Auto) 1.5 x10^3/uL (1.0-4.8) Monocytes # (Auto) 1.2 x10^3/uL (0.0-1.1) Eosinophils # (Auto) 0.2 x10^3/uL (0.0-0.7) Basophils # (Auto) 0.1 x10^3/uL (0.0-0.2) Sodium Level 142 mmol/L (136-145) Potassium Level 4.3 mmol/L (3.5-5.1) Chloride Level 106 mmol/L (98-107) Carbon Dioxide Level 27 mmol/L (21-32) Anion Gap 9 (6-14) Blood Urea Nitrogen 59 mg/dL (8-26) Creatinine 2.5 mg/dL (0.7-1.3) Estimated GFR (Cockcroft-Gault) 25.5 BUN/Creatinine Ratio 24 (6-20) Glucose Level 146 mg/dL (70-99) Calcium Level 8.5 mg/dL (8.5-10.1) Total Bilirubin 0.3 mg/dL (0.2-1.0) Aspartate Amino Transf (AST/SGOT) 31 U/L (15-37) Alanine Aminotransferase (ALT/SGPT) 27 U/L (16-63) Alkaline Phosphatase 91 U/L (46-116) Total Protein 6.8 g/dL (6.4-8.2) Albumin 1.9 g/dL (3.4-5.0) Albumin/Globulin Ratio 0.4 (1.0-1.7) Glucose (Fingerstick) 149 mg/dL (70-99) Laboratory Tests Test 10/31/19 17:01 10/31/19 20:17 11/01/19 07:26 11/01/19 08:21 Glucose (Fingerstick) 193 mg/dL (70-99) 182 mg/dL (70-99) 158 mg/dL (70-99) White Blood Count 11.1 x10^3/uL (4.0-11.0) Red Blood Count 2.74 x10^6/uL (4.30-5.70) Hemoglobin 7.3 g/dL (13.0-17.5) Hematocrit 23.1 % (39.0-53.0) Mean Corpuscular Volume 84 fL (79-100) Mean Corpuscular Hemoglobin 27 pg (25-35) Mean Corpuscular Hemoglobin Concent 32 g/dL (31-37) Red Cell Distribution Width 15.8 % (11.5-14.5) Platelet Count 381 x10^3/uL (140-400) Neutrophils (%) (Auto) 74 % (31-73) Lymphocytes (%) (Auto) 13 % (24-48) Monocytes (%) (Auto) 11 % (0-9) Eosinophils (%) (Auto) 2 % (0-3) Basophils (%) (Auto) 1 % (0-3) Neutrophils # (Auto) 8.1 x10^3/uL (1.8-7.7) Lymphocytes # (Auto) 1.5 x10^3/uL (1.0-4.8) Monocytes # (Auto) 1.2 x10^3/uL (0.0-1.1) Eosinophils # (Auto) 0.2 x10^3/uL (0.0-0.7) Basophils # (Auto) 0.1 x10^3/uL (0.0-0.2) Sodium Level 142 mmol/L (136-145) Potassium Level 4.3 mmol/L (3.5-5.1) Chloride Level 106 mmol/L (98-107) Carbon Dioxide Level 27 mmol/L (21-32) Anion Gap 9 (6-14) Blood Urea Nitrogen 59 mg/dL (8-26) Creatinine 2.5 mg/dL (0.7-1.3) Estimated GFR (Cockcroft-Gault) 25.5 BUN/Creatinine Ratio 24 (6-20) Glucose Level 146 mg/dL (70-99) Calcium Level 8.5 mg/dL (8.5-10.1) Total Bilirubin 0.3 mg/dL (0.2-1.0) Aspartate Amino Transf (AST/SGOT) 31 U/L (15-37) Alanine Aminotransferase (ALT/SGPT) 27 U/L (16-63) Alkaline Phosphatase 91 U/L (46-116) Total Protein 6.8 g/dL (6.4-8.2) Albumin 1.9 g/dL (3.4-5.0) Albumin/Globulin Ratio 0.4 (1.0-1.7) Test 11/01/19 10:46 Glucose (Fingerstick) 149 mg/dL (70-99) Assessment/Plan Assessment/Plan IMP ACUTE ENCEPHALOPATHY DEHYDRATION DIAMOND WITH CR OF 2.5 CKD STAGE 3 WITH CR OF 2.0 DECONDITIONING ANEMIA DM II PLAN HYDRATION HOLD HIS DIURETICS HOLD HIS JOHN-I WILL FOLLOW LABS IN AM DENG ARVIZU MD Nov 01, 2019 13:29
--- NOTE | 2019-11-01 14:19 | NUR ---
Wound Care Wound Type/Assessment: Consult to eval DFU to L distal TMA. No other wounds noted on head to toe assessment. Picture present in chart, wound measured (see detailed assessment). Treatment Recommendations/Plan: Apply xeroform and foam dressing to L foot wound, change Q3D. No wound on Knees. Education provided: Py extremely drowsy and unable to receive education. Able to turn independently/ Offloading surface/device: Pillows for offloading. Heels floated. Follow up 11/10/2019
[2019-11-01 15:00] VITALS: BP 132/60
--- NOTE | 2019-11-01 15:00 | NUR ---
pt hasnt voided all day and brief is dry, bladder scanned pt and it showed 634ml retained in bladder. dr notified and thurman catheter placed.
[2019-11-01] MEDS: IV NORMAL SALINE 1000ML BAG 1,000 ML IV SCH (15:27)
--- NOTE | 2019-11-01 18:16 | PDOC ---
F/U PHYSCH PROG NOTE Subjective: Gentleman is seen for routine follow-up. Progress is reviewed with nursing staff. Patient continues to be delirious however not agitated. When seen, he is disoriented, and making no sense when talk. At times it is difficult to co mprehend. Denies suicidal or homicidal thoughts. Denies auditory or visual hallucinations. No kenyon or hypomania noted. Objective: 14 point review of system is otherwise negative except for stated above. Vital Signs: Vital Signs Date Time Temp Pulse Resp B/P (MAP) Pulse Ox O2 Delivery O2 Flow Rate FiO2 11/01/19 17:28 Room Air 11/01/19 15:28 86 132/60 11/01/19 15:00 97.8 18 97 97.8 Labs: Laboratory Tests Test 10/31/19 20:17 11/01/19 07:26 11/01/19 08:21 11/01/19 10:46 Glucose (Fingerstick) 182 mg/dL (70-99) H 158 mg/dL (70-99) H 149 mg/dL (70-99) H White Blood Count 11.1 x10^3/uL (4.0-11.0) H Red Blood Count 2.74 x10^6/uL (4.30-5.70) L Hemoglobin 7.3 g/dL (13.0-17.5) L Hematocrit 23.1 % (39.0-53.0) L Mean Corpuscular Volume 84 fL (79-100) Mean Corpuscular Hemoglobin 27 pg (25-35) Mean Corpuscular Hemoglobin Concent 32 g/dL (31-37) Red Cell Distribution Width 15.8 % (11.5-14.5) H Platelet Count 381 x10^3/uL (140-400) Neutrophils (%) (Auto) 74 % (31-73) H Lymphocytes (%) (Auto) 13 % (24-48) L Monocytes (%) (Auto) 11 % (0-9) H Eosinophils (%) (Auto) 2 % (0-3) Basophils (%) (Auto) 1 % (0-3) Neutrophils # (Auto) 8.1 x10^3/uL (1.8-7.7) H Lymphocytes # (Auto) 1.5 x10^3/uL (1.0-4.8) Monocytes # (Auto) 1.2 x10^3/uL (0.0-1.1) H Eosinophils # (Auto) 0.2 x10^3/uL (0.0-0.7) Basophils # (Auto) 0.1 x10^3/uL (0.0-0.2) Sodium Level 142 mmol/L (136-145) Potassium Level 4.3 mmol/L (3.5-5.1) Chloride Level 106 mmol/L (98-107) Carbon Dioxide Level 27 mmol/L (21-32) Anion Gap 9 (6-14) Blood Urea Nitrogen 59 mg/dL (8-26) H Creatinine 2.5 mg/dL (0.7-1.3) H Estimated GFR (Cockcroft-Gault) 25.5 BUN/Creatinine Ratio 24 (6-20) H Glucose Level 146 mg/dL (70-99) H Calcium Level 8.5 mg/dL (8.5-10.1) Total Bilirubin 0.3 mg/dL (0.2-1.0) Aspartate Amino Transferase (AST) 31 U/L (15-37) Alanine Aminotransferase (ALT) 27 U/L (16-63) Alkaline Phosphatase 91 U/L (46-116) Total Protein 6.8 g/dL (6.4-8.2) Albumin 1.9 g/dL (3.4-5.0) L Albumin/Globulin Ratio 0.4 (1.0-1.7) L Test 11/01/19 16:30 Glucose (Fingerstick) 149 mg/dL (70-99) H Laboratory Tests 11/01/19 08:21 Laboratory Tests 11/01/19 08:21 Medications: Current Medications Medications (Trade) Dose Ordered Sig/Beatrice Start Time Stop Time Status Last Admin Dose Admin Albuterol Sulfate (Ventolin Neb Soln) 2.5 mg PRN Q4HRS PRN 10/29/19 23:45 Amlodipine Besylate (Norvasc) 5 mg DAILY 10/30/19 09:00 11/01/19 07:59 5 MG Aspirin (Jacquelin Aspirin) 162.5 mg DAILYWBKFT 10/30/19 08:00 11/01/19 07:59 162.5 MG Atorvastatin Calcium (Lipitor) 20 mg HS 10/30/19 21:00 10/31/19 21:16 20 MG Budesonide (Pulmicort) 0.5 mg RTBID 10/30/19 08:00 11/01/19 07:37 0.5 MG Dextrose (Dextrose 50%-Water Syringe) 12.5 gm PRN Q15MIN PRN 10/30/19 10:30 Diphenhydramine HCl (Benadryl) 25 mg PRN Q6HRS PRN 10/29/19 23:45 11/01/19 03:55 25 MG Doxycycline Hyclate (Vibra-Tab) 100 mg BID 10/30/19 09:00 11/01/19 08:00 100 MG Fluticasone Propionate (Flonase) 2 spray DAILY 10/30/19 09:00 11/01/19 07:58 2 SPRAY Furosemide (Lasix) 40 mg BID92 10/30/19 09:00 11/01/19 13:31 DC 11/01/19 08:01 40 MG Guaifenesin (Robitussin Dm) 10 ml PRN Q6HRS PRN 10/29/19 23:45 Haloperidol Lactate (Haldol Inj) 5 mg PRN Q6HRS PRN 10/31/19 16:30 10/31/19 16:36 5 MG Hydralazine HCl (Apresoline) 50 mg TID 10/30/19 09:00 11/01/19 15:28 50 MG Insulin Glargine (Lantus Syringe) 45 unit 1X ONCE 10/30/19 01:00 10/30/19 01:01 DC 10/30/19 01:24 45 UNIT Insulin Human Lispro (HumaLOG) 0-5 UNITS TIDWMEALS 10/30/19 12:00 11/01/19 08:12 2 UNITS Lactobacillus Rhamnosus (Culturelle) 1 cap BIDWMEALS 10/30/19 08:00 11/01/19 17:28 1 CAP Lisinopril (Prinivil) 40 mg DAILY 10/30/19 09:00 11/01/19 13:31 DC 11/01/19 07:59 40 MG Lorazepam (Ativan Inj) 1 mg 1X PRN 10/31/19 01:45 10/31/19 02:00 DC 10/31/19 01:58 1 MG Multivitamins (Thera M Plus) 1 tab DAILY 10/30/19 09:00 11/01/19 08:01 1 TAB Non-Formulary Medication (Glucosamine Hcl/ Chondr [place] A Na ([facility]vs Glucosamine-Chondr Tablet)) 2 each DAILY 10/30/19 09:00 UNV Non-Formulary Medication (Insulin Glargine,Hum.rec.anlog (Lantus Solostar)) 45 unit QHS 10/30/19 21:00 UNV Nystatin (Nystop) 1 ritu DAILY 10/30/19 09:00 11/01/19 08:05 1 RITU Olanzapine (ZyPREXA IM) 10 mg 1X ONCE 10/31/19 00:15 10/31/19 00:16 DC 10/31/19 00:37 10 MG Oxycodone HCl (Roxicodone) 10 mg PRN Q4HRS PRN 10/29/19 23:45 11/01/19 17:28 10 MG Pantoprazole Sodium (Protonix) 40 mg DAILYAC 10/30/19 07:30 11/01/19 07:59 40 MG Polysaccharide Iron Complex (Niferex 150) 150 mg BIDAFTMEAL 10/30/19 09:00 11/01/19 17:28 150 MG Potassium Chloride (Klor-Con) 30 meq DAILYWBKFT 10/30/19 08:00 11/01/19 08:01 30 MEQ Quetiapine Fumarate (SEROquel) 50 mg BID 10/31/19 16:30 11/01/19 07:59 50 MG Senna/Docusate Sodium (Senna Plus) 1 tab BID 10/30/19 09:00 11/01/19 08:00 1 TAB Sodium Chloride 1,000 ml @ 75 mls/hr [id number] 11/01/19 13:30 11/01/19 15:27 75 MLS/HR Vitamin D (Vitamin D3) 2,000 unit DAILY 10/30/19 09:00 11/01/19 08:01 2,000 UNIT Physical Exam: Mental Status Exam: gentleman appears as a stated age Uncooperative due to altered mental status Disoriented Thought processes disorganized Denies auditory or visual hallucinations. No suicidal or homicidal thoughts No abnormal perception. Mood is dysphoric Affect is dysthymic Insight is poor Judgment is poor Impulse control is poor Attention span and concentration impaired Recent and remote memory impaired Physical Exam: Refer to Physician's note. [employer]ES [employer]ENT[employer]IVE [employer]: No focal deficit MSK: No EPS, TDK, or abnormal involuntary movements Diagnosis: 1. Acute delirium likely hyperactive hypoactive, multifactorial Assessment: Gentleman with apparently no psychiatric history who lives by himself likely struggling with acute delirious process. Predominantly appears to be hyperactive type. Received IV Haldol that calm him down. He appears in distress and sedated likely secondary to Haldol and Seroquel. Recommending to discontinue Seroquel and start Haldol which is less sedating 2.5 mg twice daily for the resolution of delirium and agitation. 11/01/2019. No change in his status continues to be grossly confused and completely disoriented. Plan: Haldol 2.5 mg twice a day for the resolution of delirium and agitation. Will consider increasing Haldol if required. Continue IV Haldol on as needed basis to manage aggression and psychosis. Avoid sedatives and hypnotics. Apply delirium protocol. CHOLO SAWANT MD Nov 01, 2019 18:16
[2019-11-01 19:00] VITALS: BP 103/42
--- NOTE | 2019-11-01 20:22 | NUR ---
pt yelling and screaming all day for tiffanie, the doctor, about pain in his head from hitting it on the chimney, turkeys in the field, and going to [place]. pt able to be reoriented at times and is oriented to situation at times, but mostly confused. pt does not try to get out of bed, but does move around frequently in the bed. pt is not combative and is cooperative when instructed on what the task is.
--- NOTE | 2019-11-01 20:26 | NUR ---
spoke with family about possible discharge to a [facility] and family is very concerned and wants a CT of his head before discharge to rule out any possible issues causing confusion.
[2019-11-01] MEDS: ATORVASTATIN CALCIUM 20 MG TABLET PO SCH (20:39)
[2019-11-01] MEDS: HALOPERIDOL 5 MG TABLET. PO SCH (20:39)
[2019-11-01] MEDS: INSULIN GLARGINE SYRINGE. SQ SCH (20:48)
[2019-11-01 23:00] VITALS: BP 116/59
--- NOTE | 2019-11-01 23:15 | NUR ---
Update provided to patient's [id number] in regards to plan of care; family concerned with current diagnosis and anticipated discharge to [facility].
[2019-11-01] MEDS ORDERED: IV NORMAL SALINE 1000ML BAG 1,000 ML IV SCH (23:31)
[2019-11-01] MEDS ORDERED: ACETAMINOPHEN 650 MG SUPP.RECT. PR PRN (23:45)
[2019-11-01] MEDS ORDERED: BISACODYL 10 MG SUPP.RECT. PR PRN (23:45)
[2019-11-01] MEDS ORDERED: ONDANSETRON PF 4 MG/2 ML VIAL. IVP PRN (23:45)
[2019-11-01] MEDS ORDERED: MORPHINE SULFATE 30 ML IV PRN (23:45)
[2019-11-02] MEDS: oxyCODONE IR 5 MG TABLET PO PRN ×3 (00:29→13:31)
[2019-11-02 03:00] VITALS: BP 128/60
[2019-11-02] MEDS: IV NORMAL SALINE 1000ML BAG 1,000 ML IV SCH ×2 (03:26→15:29)
--- NOTE | 2019-11-02 04:42 | NUR ---
Patient restless, pulled out IV this AM, and hollering from bed for "another beer".
[2019-11-02 05:03] LABS: CALCIUM 8.4 mg/dL (8.5-10.1); CREATININE 2.5 mg/dL (0.7-1.3); GFR 25.5
[2019-11-02] MEDS: diphenhydrAMINE HCL 25 MG CAPSULE PO PRN (05:09)
[2019-11-02 07:00] VITALS: BP 137/62
[2019-11-02] MEDS: BUDESONIDE 0.5 MG/2 ML NEBU. NEB SCH ×2 (07:57→20:47)
[2019-11-02] MEDS: INSULIN LISPRO 300 UNITS/3 ML VIAL. SQ SCH ×3 (08:00→17:00)
[2019-11-02] MEDS: CHOLECALCIFEROL (VITAMIN D3) 1,000 UNIT TABLET PO SCH (08:23)
[2019-11-02] MEDS: DOXYCYCLINE HYCLATE 100 MG TABLET PO SCH ×2 (08:23→20:17)
[2019-11-02] MEDS: MULTIVITAMIN with MINERAL TABLET. PO SCH (08:24)
[2019-11-02] MEDS: HALOPERIDOL 5 MG TABLET. PO SCH ×2 (08:24→22:15)
[2019-11-02] MEDS: LACTOBACILLUS RHAMNOSUS GG 1 CAPSULE. PO SCH ×2 (08:25→16:44)
[2019-11-02] MEDS: amLODIPine BESYLATE 5 MG TABLET PO SCH (08:25)
[2019-11-02] MEDS: POTASSIUM CHLORIDE 10 MEQ TABLET.ER. PO SCH (08:25)
[2019-11-02] MEDS: PANTOPRAZOLE 40 MG TABLET.DR. PO SCH (08:25)
[2019-11-02] MEDS: IRON POLYSACCHARIDE COMPLEX 150 MG CAPSULE PO SCH ×2 (08:25→18:00)
[2019-11-02] MEDS: SENNOSIDES/DOCUSATE 8.6/50MG TABLET. PO SCH ×2 (08:25→20:17)
[2019-11-02] MEDS: hydrALAZINE 25 MG TABLET PO SCH ×3 (08:26→20:16)
[2019-11-02] MEDS: ASPIRIN 325 MG TABLET PO SCH (08:26)
[2019-11-02] MEDS: FLUTICASONE 50MCG/NASAL SPRAY 16GM BOTTLE. NS SCH (08:26)
[2019-11-02] MEDS: NYSTATIN TOPICAL POWDER 15GM BOTTLE. TP SCH (08:27)
--- NOTE | 2019-11-02 09:08 | NUR ---
Patient very restless, keeps yelling "Please please help make them leave me alone". patient given scheduled haldol with no change. Has been yelling all morning every five minutes.
--- NOTE | 2019-11-02 09:50 | NUR ---
JOSE following. Discussed with RN and Dr. Gifford. Family agreeable to alice-psych - requesting [facility]. JOSE spoke with Jay with [facility] - [facility] does not have a geripsych specifically and given pt's immobility, would not accept pt into regular adult psych. JOSE spoke with pt's son, Haris ([phone]), he is fine with referral to [facility]. Haris reported his brother, Rosendo ([phone]) has DPOA for Medical and Haris is also listed on this. JOSE phoned pt's son, Rosendo to discuss referral to [facility] - Rosendo is agreeable. JOSE phoned and faxed referral to [facility] result is not back yet. RN notified. JOSE will continue to follow. Addendum: 11/02/19 at 1044 by BECKIE GARCIA [facility] is out of network with pt's insurance. JOSE phoned Haris and left voicemail requesting permission to fax referral to other facilities. JOSE contacted [facility] behavioral unit - they are in network with Nathan. JOSE awaiting call back from Haris. Addendum: 11/02/19 at 1224 by BECKIE GARCIA Haris contacted SW back around 1100, gave permission for SW to fax to [facility] and [facility]. Referral faxed to [facility], awaiting call back from [place] about insurance. Jay (LESLYE) met with pt, does not think pt needs geru-psych if keeps improving (Dr. Garcia apparently agrees). JOSE discussed with RN, Dr. Gifford is wanting alice psych and thinks this is more appropriate. SW to speak with family about SNU with memory care if the [facility] units do not accept pt. JOSE will continue to follow. Addendum: 11/02/19 at 1300 by BECKIE GARCIA [facility] does not have a alice-psych, do not have any beds, but do take Aegracie CORADO. JOSE will continue to follow. Addendum: 11/02/19 at 1357 by BECKIE GARCIA JOSE spoke with Aide at [facility], pt is tentatively accepted pending final approval from medical sonographer and Aide receiving DPOA paperwork and negative COVID result. Requested paperwork faxed, awaiting acceptance decision. No bed today, but top of list for bed tomorrow (expecting 1 discharge tomorrow 11/03/2019). RN notified. Addendum: 11/02/19 at 1452 by BECKIE GARCIA Pt accepted at [facility]. Plan was for pt to discharge there today, however Aide contacted JOSE back to say something unexpected came up so they can take pt first thing tomorrow morning (11/03/2019). RN and family notified. Anticipate discharge tomorrow morning, JOSE to arranged non emergent ambulance transportation in the morning. JOSE will continue to follow.
[2019-11-02 11:00] VITALS: BP 143/53
[2019-11-02 11:12] LABS: ALBUM 2.3 g/dL (2.9-4.4); ALPHA 1 0.4 g/dL (0.0-0.4); ALPHA 2 1.4 g/dL (0.4-1.0); BETA 0.8 g/dL (0.7-1.3); GAMMA 1.4 g/dL (0.4-1.8); PROTEIN TOTAL 6.3 g/dL (6.0-8.5); SPEP AG RATIO 0.6 (0.7-1.7)
--- NOTE | 2019-11-02 11:20 | SNU/HH DC ---
DISCHARGE ORDERS DISCHARGE INFORMATION: FINAL DIAGNOSIS Problems Medical Problems: (1) Fall Status: Acute CONDITION ON DISCHARGE: Stable CODE STATUS: Code Status: Full RETIREMENT: SNF STAY <30 DAYS: No HOSPICE: HOSPICE: No HOSPICE EVAL & TREAT: No LTAC: ADMIT TO LTAC: No POST DISCHARGE ORDERS: ACTIVITY ORDERS: Activity as tolerated WEIGHT BEARING STATUS: As tolerated DIET AFTER DISCHARGE: Cardiac WOUND/INCISION CARE: Keep wound/cast CDI CHECKS AFTER DISCHARGE: CHECKS AFTER DISCHARGE: Check blood press - daily, Check blood sugar, ac/hs, Check your Temp as needed, Weigh Yourself Daily TREATMENT/EQUIPMENT ORDERS: ADAPTIVE EQUIPMENT NEEDED: Cane, Front wheeled walker Physical Therapy For: Evalulation/Treatment Occupational Therapy For: Evaluation/Treatment Speech Language Pathology For: Evaluation/Treatment DISCHARGE MEDICATIONS: Home Meds Active Scripts Doxycycline Hyclate (DOXYCYCLINE HYCLATE) 100 Mg Tablet, 100 MG PO BID for bacterial infection for 3 Days, #6 TAB Prov:RAJ VANEGAS MD 10/28/19 Potassium Chloride (KLOR-CON 10) 10 Meq Tablet.er, 30 MEQ PO DAILYWBKFT for low K for 7 Days, #21 TAB.SR Prov:VENTURA JULES MD 11/03/18 Amlodipine Besylate (AMLODIPINE BESYLATE) 5 Mg Tablet, 5 MG PO DAILY for htn, #90 TAB Prov:VENTURA JULES MD 11/03/18 Hydralazine Hcl (HYDRALAZINE HCL) 25 Mg Tablet, 50 MG PO TID for htn, #90 TAB Prov:VENTURA JULES MD 11/03/18 Multivits,Ca,Minerals/Iron/Fa (THERA-M TABLET) 1 Each Tablet, 1 TAB PO DAILY for mvi MDD 1, #30 TAB Prov:VENTURA JULES MD 05/21/18 Budesonide (BUDESONIDE) 0.5 Mg/2 Ml Ampul.neb, 0.5 MG NEB RTBID for copd MDD 1, #60 EACH Prov:VENTURA JULES MD 05/21/18 Guaifenesin/Dextromethorphan (GUAIFENESIN DM SYRUP) 5 Ml Syrup, 10 ML PO PRN Q6HRS PRN for COUGH, 1st CHOICE MDD 1, #30 MISC Prov:VENTURA JULES MD 05/21/18 Albuterol Sulfate (Proair Hfa) 8.5 Gm Hfa.aer.ad, 2.5 MG NEB PRN Q4HRS PRN for SHORTNESS OF BREATH MDD 1, #60 INHALER Prov:VENTURA JULES MD 05/21/18 Iron Polysaccharides Complex (POLY-IRON) 150 Mg Capsule, 150 MG PO BID for LOUISE MDD 1, #60 CAP Prov:VENTURA JULES MD 05/21/18 Oxycodone Hcl (OXYCODONE HCL IMMED.RELEASE ) 5 Mg Tablet, 10 MG PO PRN Q4HRS PRN for SEVERE PAIN MDD 1, #20 TAB-CAP Prov:VENTURA JULES MD 05/21/18 Reported Medications Carvedilol (CARVEDILOL) 25 Mg Tablet, 25 MG PO BIDWMEALS for CARDIAC, TAB 10/29/19 Aspirin (ASPIRIN) 325 Mg Tablet, 0.5 TAB PO DAILY, #30 TAB 5 Refills 10/25/15 Sennosides/Docusate Sodium (SENNA-S TABLET) 1 Each Tablet, 1 EACH PO BID 10/25/15 Nystatin (NYAMYC) 15 Gm Powder, 15 GM TP DAILY 10/25/15 Lactobacillus Rhamnosus Gg (CULTURELLE) 1 Each Capsule, 1 EACH PO BIDWMEALS 10/25/15 Insulin Glargine,Hum.rec.anlog (LANTUS SOLOSTAR) 100 Unit/1 Ml Insuln.pen, 45 UNIT SQ QHS, #15 ML 3 Refills 10/25/15 Glucosamine Hcl/Chondr [place] A Na ([facility] GLUCOSAMINE-CHONDR TABLET) 1 Each Tablet, 2 EACH PO DAILY 10/25/15 Fluticasone Propionate (Flonase Allergy Relief) 9.9 Ml [place].susp, 2 SPRAYS NS DAILY, BOTTLE 10/25/15 Diphenhydramine Hcl (DIPHENHYDRAMINE HCL) 50 Mg Capsule, 25 MG PO Q6HRS PRN for ALLERGIES 10/25/15 Cholecalciferol (Vitamin D3) (VITAMIN D3) 1,000 Unit Tablet, 2000 UNIT PO DAILY 10/25/15 Atorvastatin Calcium (ATORVASTATIN CALCIUM) 20 Mg Tablet, DAILY, #90 10/25/15 Furosemide (FUROSEMIDE) 20 Mg Tablet, 40 MG BID, #360 10/25/15 Lisinopril (LISINOPRIL) 40 Mg Tablet, 40 DAILY, #90 10/25/15 Carvedilol (CARVEDILOL) 25 Mg Tablet, 25 BID, #14 10/25/15 Pantoprazole Sodium (PANTOPRAZOLE SODIUM ) 40 Mg Tablet.dr, DAILY, #90 10/25/15 Discontinued Reported Medications Insulin Aspart (NOVOLOG FLEXPEN) 100 Unit/1 Ml Insuln.pen, 30 SQ TIDWMEALS, SYR 05/09/16 Discontinued Scripts Sulfamethoxazole/Trimethoprim (BACTRIM DS TABLET) 1 Each Tablet, 1 TAB PO BID, #14 TAB Prov:DANIEL CAN APRN 12/08/18 ROHIT DAMON III DO Nov 02, 2019 11:20
--- NOTE | 2019-11-02 13:42 | PDOC ---
Renal-Progress Notes Subjective Notes Notes CONFUSED History of Present Illness Hx of present illness NO CHANGES Vitals Vitals Vital Signs Date Time Temp Pulse Resp B/P (MAP) Pulse Ox O2 Delivery O2 Flow Rate FiO2 11/02/19 13:31 94 Room Air 11/02/19 13:31 103 143/53 11/02/19 11:00 99.6 18 99.6 Weight Weight [ ] I.O. Intake and Output Intake and Output 11/02/19 07:00 Intake Total 1350 ml Output Total 1425 ml Balance -75 ml Intake Oral 350 ml IV Total 1000 ml Output Urine Total 1425 ml Labs Labs Laboratory Tests Test 11/01/19 15:25 11/01/19 16:30 11/01/19 20:24 11/02/19 04:00 Coronavirus (PCR) Not detected (Not Detected) Glucose (Fingerstick) 149 mg/dL (70-99) 218 mg/dL (70-99) Sodium Level 141 mmol/L (136-145) Potassium Level 4.0 mmol/L (3.5-5.1) Chloride Level 106 mmol/L (98-107) Carbon Dioxide Level 28 mmol/L (21-32) Anion Gap 7 (6-14) Blood Urea Nitrogen 60 mg/dL (8-26) Creatinine 2.5 mg/dL (0.7-1.3) Estimated GFR (Cockcroft-Gault) 25.5 Glucose Level 133 mg/dL (70-99) Calcium Level 8.4 mg/dL (8.5-10.1) Test 11/02/19 08:01 11/02/19 11:21 Glucose (Fingerstick) 52 mg/dL (70-99) 127 mg/dL (70-99) Micro Micro Microbiology 10/29/19 Blood Culture - Preliminary, Resulted NO GROWTH AFTER 3 DAYS Review of Systems Constitutional: yes: other (UNABLE TO OBTAIN) Physical Exam General Appearance: other (CONFUSED) Skin: warm Respiratory: decreased breath sounds Heart: S1S2 Abdomen: soft, bowel sounds present Genitourinary: bladder flat Neurology: confused Musculoskeletal: Other Assessment Assessment IMP ACUTE ENCEPHALOPATHY DEHYDRATION HYPOKALEMIA DIAMOND WITH CR OF 2.5 CKD STAGE 3B WITH CR OF 2.0 DECONDITIONING IRON DEFICIENCY ANEMIA DM II PLAN START IRON REPLACE K HYDRATION HOLD HIS DIURETICS HOLD HIS JOHN-I GERIPSYCH UNIT EVAL WILL FOLLOW DENG ARVIZU MD Nov 02, 2019 13:41
[2019-11-02 15:00] VITALS: BP 124/53
[2019-11-02] MEDS: HALOPERIDOL LACTATE 5 MG/ML VIAL. IVP PRN (16:40)
[2019-11-02 19:00] VITALS: BP 118/55
[2019-11-02] MEDS: ATORVASTATIN CALCIUM 20 MG TABLET PO SCH (20:17)
--- NOTE | 2019-11-02 20:17 | PDOC ---
F/U PHYSCH PROG NOTE Subjective: Gentleman with acute delirium is seen for routine follow-up. Progress is reviewed with nursing staff. Patient is at times demanding, screaming and shouting complaining of pain. Though he was given pain medications. When seen, he appears relatively alert, more interactive and oriented to place and person compared to yesterday. Denies suicidal or homicidal thoughts. Denies auditory or visual hallucinations no evidence of kenyon or hypomania. Tolerating medication denies adverse drug reaction. Objective: 14 point review of system is otherwise negative except for as stated above. Vital Signs: Vital Signs Date Time Temp Pulse Resp B/P (MAP) Pulse Ox O2 Delivery O2 Flow Rate FiO2 11/02/19 19:00 97.9 91 18 118/55 (76) 96 Room Air 97.9 Labs: Laboratory Tests Test 11/01/19 20:24 11/02/19 04:00 11/02/19 08:01 11/02/19 11:21 Glucose (Fingerstick) 218 mg/dL (70-99) H 52 mg/dL (70-99) L 127 mg/dL (70-99) H Sodium Level 141 mmol/L (136-145) Potassium Level 4.0 mmol/L (3.5-5.1) Chloride Level 106 mmol/L (98-107) Carbon Dioxide Level 28 mmol/L (21-32) Anion Gap 7 (6-14) Blood Urea Nitrogen 60 mg/dL (8-26) H Creatinine 2.5 mg/dL (0.7-1.3) H Estimated GFR (Cockcroft-Gault) 25.5 Glucose Level 133 mg/dL (70-99) H Calcium Level 8.4 mg/dL (8.5-10.1) L Test 11/02/19 17:11 11/02/19 20:05 Glucose (Fingerstick) 89 mg/dL (70-99) 135 mg/dL (70-99) H Laboratory Tests 11/02/19 04:00 Medications: Current Medications Medications (Trade) Dose Ordered Sig/Beatrice Start Time Stop Time Status Last Admin Dose Admin Acetaminophen (Tylenol Supp) 650 mg PRN Q4HRS PRN 11/01/19 23:45 Cancel Albuterol Sulfate (Ventolin Neb Soln) 2.5 mg PRN Q4HRS PRN 10/29/19 23:45 Amlodipine Besylate (Norvasc) 5 mg DAILY 10/30/19 09:00 11/02/19 08:25 Aspirin (Jacquelin Aspirin) 162.5 mg DAILYWBKFT 10/30/19 08:00 11/02/19 08:26 Atorvastatin Calcium (Lipitor) 20 mg HS 10/30/19 21:00 11/01/19 20:39 Bisacodyl (Dulcolax Supp) 10 mg PRN DAILY PRN 11/01/19 23:45 Cancel Budesonide (Pulmicort) 0.5 mg RTBID 10/30/19 08:00 11/02/19 07:57 Dextrose (Dextrose 50%-Water Syringe) 12.5 gm PRN Q15MIN PRN 10/30/19 10:30 11/02/19 08:21 Diphenhydramine HCl (Benadryl) 25 mg PRN Q6HRS PRN 10/29/19 23:45 11/02/19 05:09 Doxycycline Hyclate (Vibra-Tab) 100 mg BID 10/30/19 09:00 11/02/19 08:23 Fluticasone Propionate (Flonase) 2 spray DAILY 10/30/19 09:00 11/02/19 08:26 Furosemide (Lasix) 40 mg BID92 10/30/19 09:00 11/01/19 13:31 DC 11/01/19 08:01 Guaifenesin (Robitussin Dm) 10 ml PRN Q6HRS PRN 10/29/19 23:45 Haloperidol (Haldol) 2.5 mg BID 11/01/19 21:00 11/02/19 08:24 Haloperidol Lactate (Haldol Inj) 5 mg PRN Q6HRS PRN 10/31/19 16:30 11/02/19 16:40 Hydralazine HCl (Apresoline) 50 mg TID 10/30/19 09:00 11/02/19 13:31 Insulin Glargine (Lantus Syringe) 45 unit 1X ONCE 10/30/19 01:00 10/30/19 01:01 DC 10/30/19 01:24 Insulin Human Lispro (HumaLOG) 0-5 UNITS TIDWMEALS 10/30/19 12:00 11/01/19 08:12 Lactobacillus Rhamnosus (Culturelle) 1 cap BIDWMEALS 10/30/19 08:00 11/02/19 16:44 Lisinopril (Prinivil) 40 mg DAILY 10/30/19 09:00 11/01/19 13:31 DC 11/01/19 07:59 Lorazepam (Ativan Inj) 0.5 mg PRN Q4HRS PRN 11/01/19 23:45 Cancel Morphine Sulfate 30 ml @ 0 mls/hr CONT PRN PRN 11/01/19 23:45 Cancel Multivitamins (Thera M Plus) 1 tab DAILY 10/30/19 09:00 11/02/19 08:24 Non-Formulary Medication (Glucosamine Hcl/ Chondr [place] A Na ([facility] Glucosamine-Chondr Tablet)) 2 each DAILY 10/30/19 09:00 UNV Non-Formulary Medication (Insulin Glargine,Hum.rec.anlog (Lantus Solostar)) 45 unit QHS 10/30/19 21:00 UNV Nystatin (Nystop) 1 irtu DAILY 10/30/19 09:00 11/02/19 08:27 Olanzapine (ZyPREXA IM) 10 mg 1X ONCE 10/31/19 00:15 10/31/19 00:16 DC 10/31/19 00:37 Ondansetron HCl (Zofran) 4 mg PRN Q4HRS PRN 11/01/19 23:45 Cancel Oxycodone HCl (Roxicodone) 10 mg PRN Q4HRS PRN 10/29/19 23:45 11/02/19 13:31 Pantoprazole Sodium (Protonix) 40 mg DAILYAC 10/30/19 07:30 11/02/19 08:25 Polysaccharide Iron Complex (Niferex 150) 150 mg DAILY 11/03/19 09:00 Potassium Chloride (Klor-Con) 30 meq DAILYWBKFT 10/30/19 08:00 11/02/19 08:25 Quetiapine Fumarate (SEROquel) 50 mg BID 10/31/19 16:30 11/01/19 18:12 DC 11/01/19 07:59 Senna/Docusate Sodium (Senna Plus) 1 tab BID 8/22/20 09:00 11/02/19 08:25 Sodium Chloride 1,000 ml @ 25 mls/hr Q24H 11/01/19 23:31 Cancel Vitamin D (Vitamin D3) 2,000 unit DAILY 10/30/19 09:00 11/02/19 08:23 Physical Exam: Mental Status Exam: gentleman appears as a stated age Uncooperative due to altered mental status Disoriented Thought processes disorganized Denies auditory or visual hallucinations. No suicidal or homicidal thoughts No abnormal perception. Mood is dysphoric Affect is dysthymic Insight is poor Judgment is poor Impulse control is poor Attention span and concentration impaired Recent and remote memory impaired Physical Exam: Refer to Physician's note. SENIOR FACILITIES MANAGER: No focal deficit MSK: No EPS, TDK, or abnormal involuntary movements Diagnosis: 1. Acute delirium likely hyperactive hypoactive, multifactorial Assessment: Gentleman with apparently no psychiatric history who lives by himself likely struggling with acute delirious process. Predominantly appears to be hyperactive type. Received IV Haldol that calm him down. He appears in distress and sedated likely secondary to Haldol and Seroquel. Recommending to discontinue Seroquel and start Haldol which is less sedating 2.5 mg twice daily for the resolution of delirium and agitation. 11/01/2019. No change in his status continues to be grossly confused and completely disoriented. 11/02/2019 today he appears relatively more interactive and oriented opening eyes and responding. Will increase Haldol as patient is a screaming and has agitating. Plan: Increase Haldol 5 mg twice a day for the resolution of delirium and agitation. Will consider increasing Haldol if required. Continue IV Haldol on as needed basis to manage aggression and psychosis. Avoid sedatives and hypnotics. Apply delirium protocol. CHOLO SAWANT MD Nov 02, 2019 20:17
[2019-11-02] MEDS: INSULIN GLARGINE SYRINGE. SQ SCH (20:26)
[2019-11-02 23:00] VITALS: BP 127/56
[2019-11-03 03:00] VITALS: BP 129/57
[2019-11-03] MEDS: HALOPERIDOL LACTATE 5 MG/ML VIAL. IVP PRN (04:43)
[2019-11-03] MEDS: diphenhydrAMINE HCL 25 MG CAPSULE PO PRN (04:47)
[2019-11-03] MEDS: IV NORMAL SALINE 1000ML BAG 1,000 ML IV SCH (05:30)
[2019-11-03] MEDS: PANTOPRAZOLE 40 MG TABLET.DR. PO SCH (05:50)
[2019-11-03 06:00] LABS: CALCIUM 8.3 mg/dL (8.5-10.1); CREATININE 2.1 mg/dL (0.7-1.3); GFR 31.2; POTASSIUM 4.6 mmol/L (3.5-5.1)
[2019-11-03] MEDS: BUDESONIDE 0.5 MG/2 ML NEBU. NEB SCH (06:56)
[2019-11-03 07:00] VITALS: BP 110/59
[2019-11-03] MEDS: INSULIN LISPRO 300 UNITS/3 ML VIAL. SQ SCH (08:00)
[2019-11-03] MEDS: CHOLECALCIFEROL (VITAMIN D3) 1,000 UNIT TABLET PO SCH (08:19)
[2019-11-03] MEDS: HALOPERIDOL 5 MG TABLET. PO SCH (08:20)
[2019-11-03] MEDS: SENNOSIDES/DOCUSATE 8.6/50MG TABLET. PO SCH (08:20)
[2019-11-03] MEDS: MULTIVITAMIN with MINERAL TABLET. PO SCH (08:20)
[2019-11-03] MEDS: hydrALAZINE 25 MG TABLET PO SCH (08:20)
[2019-11-03] MEDS: ASPIRIN 325 MG TABLET PO SCH (08:20)
[2019-11-03] MEDS: LACTOBACILLUS RHAMNOSUS GG 1 CAPSULE. PO SCH (08:20)
[2019-11-03] MEDS: amLODIPine BESYLATE 5 MG TABLET PO SCH (08:21)
[2019-11-03] MEDS: POTASSIUM CHLORIDE 10 MEQ TABLET.ER. PO SCH (08:21)
[2019-11-03] MEDS: DOXYCYCLINE HYCLATE 100 MG TABLET PO SCH (08:21)
[2019-11-03] MEDS: FLUTICASONE 50MCG/NASAL SPRAY 16GM BOTTLE. NS SCH (08:21)
[2019-11-03] MEDS: IRON POLYSACCHARIDE COMPLEX 150 MG CAPSULE PO SCH (08:21)
[2019-11-03] MEDS: NYSTATIN TOPICAL POWDER 15GM BOTTLE. TP SCH (08:24)
--- NOTE | 2019-11-03 08:37 | NUR ---
SW following. Discussed with RN, plan for discharge to [facility] behavioral unit today. [facility] transportation arranged for 10am. Family, RN and [facility] unit notified.
--- NOTE | 2019-11-03 08:53 | PDOC ---
[employer] PROGRESS NOTE Date of Service DOS: DATE: 11/03/19 TIME: 08:48 Chief Complaint Chief Complaint Patient presents with altered mental status and falls History of Present Illness History of Present Illness 11/03/2019 Patient was seen and examined Patient was resting in NAD Patient has [place] catheter in currently Spoke with [facility] but they declined to take him 11/02/2019 Patient was seen and examined Patient was resting in NAD Discussed with case management Discussed with RN Chart reviewed Vitals/I&O Vitals/I&O: Vital Signs Date Time Temp Pulse Resp B/P (MAP) Pulse Ox O2 Delivery O2 Flow Rate FiO2 11/03/19 08:21 85 110/59 11/03/19 07:00 98.5 18 96 Room Air 98.5 I & O 11/02/19 11/02/19 11/03/19 15:00 23:00 07:00 Intake Total 400 ml Output Total 2200 ml 450 ml Balance -2200 ml -50 ml Physical Exam General: Alert, Cooperative, No acute distress Heart: Regular rate Lungs: Clear Abdomen: Normal bowel sounds, Soft Extremities: No edema Skin: No breakdown Labs Labs: Laboratory Tests Test 11/02/19 11:21 11/02/19 17:11 11/02/19 20:05 11/03/19 04:30 Glucose (Fingerstick) 127 mg/dL (70-99) 89 mg/dL (70-99) 135 mg/dL (70-99) Sodium Level 142 mmol/L (136-145) Potassium Level 4.6 mmol/L (3.5-5.1) Chloride Level 105 mmol/L (98-107) Carbon Dioxide Level 27 mmol/L (21-32) Anion Gap 10 (6-14) Blood Urea Nitrogen 53 mg/dL (8-26) Creatinine 2.1 mg/dL (0.7-1.3) Estimated GFR (Cockcroft-Gault) 31.2 Glucose Level 85 mg/dL (70-99) Calcium Level 8.3 mg/dL (8.5-10.1) Test 11/03/19 07:20 Glucose (Fingerstick) 64 mg/dL (70-99) Review of Systems Review of Systems: Patient denies nausea. Patient denies weakness Assessment and Plan Assessmemt and Plan Problems Medical Problems: (1) Fall Status: Acute Plan: Discharge disposition pending Continue current medications Home meds DVT prophylaxis Full code Comment Review of Relevant I have reviewed the following items minnie (where applicable) has been applied. Medications: Current Medications Medications (Trade) Dose Ordered Sig/Beatrice Route PRN Reason Start Time Stop Time Status Last Admin Dose Admin Haloperidol (Haldol) 5 mg BID PO 11/02/19 21:00 11/03/19 08:20 ROHIT DAMON III DO Nov 03, 2019 08:53
[2019-11-03] MEDS ORDERED: IRON POLYSACCHARIDE COMPLEX 150 MG CAPSULE PO SCH (09:00)
--- NOTE | 2019-11-03 09:55 | NUR ---
Called and gave report to Oc @ [facility].
[2019-11-03] MEDS: oxyCODONE IR 5 MG TABLET PO PRN (10:06)
[2019-11-03 11:00] VITALS: BP 112/47
--- NOTE | 2019-11-03 11:12 | NUR ---
Pt discharged to [facility]. Pt was assisted to stretcher and was taken by EMS. IV removed. Belongings were sent with the pt.
--- NOTE | 2019-11-26 14:15 | DS ---
DATE OF DISCHARGE: 11/03/2019 ADMISSION DIAGNOSES: Falls, debility, chronic multiple comorbidities, delirium. DISCHARGE DIAGNOSES: Resolving falls, history of morbid obesity, transmetatarsal amputation on the left foot, previous history of shoulder surgery, resolving delirium. CONSULTS: Psychiatry. HOSPITAL COURSE: The patient is a pleasant 74-year-old male who is overweight, presented with a fall. He also had mental status change. We admitted the patient, gave him IV fluids, did some physical therapy and occupational therapy. We consulted Psychiatry. Dr. Garcia decided to stop the Seroquel and start Haldol. His delirium improved and over the next few days, he was good enough, we were able to discharge. DISPOSITION: Home. ACTIVITY: As tolerated. DIET: Low sodium. MEDICATIONS: Please see the MRAD. TOTAL TIME: 32 minutes. ROHIT DAMON DO DR: YANIRA/domitila JOB#: [id number] / [id number]
== END 2019-11-03 11:00 | DRG 70 ==
LOC: ER 16:47 → 4 NORTH 19:31
PROVIDERS: ADMIT Internal Medicine; ATTEND Internal Medicine
DX: G93.41 Metabolic encephalopathy (principal); N17.0 Acute kidney failure with tubular necrosis; Z68.41 Body mass index [BMI] 40.0-44.9, adult; D63.1 Anemia in chronic kidney disease; E11.22 Type 2 diabetes mellitus with diabetic chronic kidney disease; E61.1 Iron deficiency; E66.9 Obesity, unspecified; E78.5 Hyperlipidemia, unspecified; E86.0 Dehydration; E87.6 Hypokalemia; E11.42 Type 2 diabetes mellitus with diabetic polyneuropathy; I12.9 Hypertensive chronic kidney disease with stage 1 through stage 4 chronic kidney disease, or unspecified chronic kidney disease; N18.3 Chronic kidney disease, stage 3 (moderate); R62.7 Adult failure to thrive; Z82.49 Family history of ischemic heart disease and other diseases of the circulatory system; Z83.3 Family history of diabetes mellitus; Z87.891 Personal history of nicotine dependence; E66.01 Morbid (severe) obesity due to excess calories; F32.9 Major depressive disorder, single episode, unspecified; Z88.1 Allergy status to other antibiotic agents; Z88.8 Allergy status to other drugs, medicaments and biological substances; Z20.828 Contact with and (suspected) exposure to other viral communicable diseases
CPT/HCPCS: 36415; 70450; 71045; 72125; 72170; 73110; 73562; 80048; 80053; 81001; 82550; 82607; 82962; 83540; 83550; 83605; 83690; 83880; 84165; 84443; 84484; 85025; 85610; 85730; 86140; 87040; 93005; 94640; 94760; 99285; J1630; J1815; J2060; J3490; J7030; 97530-GO; 97530-GP; G0378; J7626; Q0163; U0003-CS